=== PATIENT | female | born 1950 | race Caucasian/White ===

== ENCOUNTER 2017-09-13 07:16 | Day surgery (SDC) | payer MEDICARE, OTHER, SELFPAY ==
--- NOTE | 2017-09-07 12:58 | EKG12_ITS ---
Test Reason : PRE-OP Blood Pressure : / mmHG Vent. Rate : 080 BPM Atrial Rate : 080 BPM P-R Int : 144 ms QRS Dur : 078 ms QT Int : 382 ms P-R-T Axes : 073 048 044 degrees QTc Int : 440 ms Normal sinus rhythm Low voltage QRS Borderline ECG Confirmed by FABIAN ARCHER, SOLEDAD ([id number]), business editor SHEELA ERVIN ([id number]) on 09/08/2017 2:29:10 PM Referred By: Marifer Foy Confirmed By:SOLEDAD PERALTA MD
[2017-09-07 13:37] LABS: Hematocrit 33.3 % (37-47); Hemoglobin 11.1 g/dl (12.0-15.0); Mean Corp Hgb Conc 33.3 g/gl (32-36); Mean Corpuscular Hgb 30.3 pg (27.0-32.0); Platelet Count 288 K/mm3 (150-450); RBC Distribution Width CV 12.7 % (11.6-14.6); RBC Distribution Width SD 42.6 fl (35.1-43.9); Red Blood Count 3.66 M/mm3 (4.2-5.4)
[2017-09-07 13:38] LABS: Scan Indicated on CBC? Y/N NO
[2017-09-07 13:51] LABS: Anion Gap 6 (5-15); BUN 14 mg/dL (7-18); BUN/Creat Ratio 14.9 RATIO (10-20); Calcium,Total 8.9 mg/dL (8.5-10.1); Chloride 105 mmol/L (98-107); Creatinine, Serum 0.94 mg/dL (0.55-1.02); EST Glomerular Filtration Rate 63 mL/min (>60); Est Glom Filt Rate - Afr Amer 76 mL/min (>60); Glucose 65 mg/dL (74-106); Sodium Level 139 mmol/L (136-145)
[2017-09-07 13:58] LABS: Hemoglobin A1c 7.6 % (4.2-6.3)
[2017-09-13] VITALS (13 sets, daily range): BP systolic 114–154; BP diastolic 54–74; PULSE 65–77; RESP 10–18; TEMP 36–37.6; O2SAT 94–100; BMI 34.0
--- NOTE | 2017-09-13 | AXNB_PTH ---
PATIENT: ORION SORENSEN LOC: [facility] [place] U#:[id number] AGE/SX: 66/F ROOM: RE09/13/[address]: Dr. Marifer Foy MD : 1950 BED: DIS: 09/14/2017 SPEC #: [id number] RECD: 09/13/17 11:24 STATUS: HERNAN REJuli #: [id number] ANNA: 09/13/17 00:[address]: Marifer Foy DEPT: SURGICAL PATHOLOGY RECD BY: Adrianne Crooks ENTERED: 09/13/17 12:03 SP TYPE: AX NODE BX OTHR DR: Dr. Adonis Alvarado MD Tissues: A - Axillary lymph node, NOS B - Right breast, NOS C - Left breast, NOS Procedures: Frozen Section (charge) Frozen Section Add'l ([facility]) Surgery Specimen Level V Surgery Specimen Level Frozen (no charge) HEADER OPERATION: Mastectomy PRE-OP DIAGNOSIS: Right breast cancer TISSUE SUBMITTED: A ? Right axillary breast tissue ? sent for FS at 1119, B ? Right breast ? suture causey tail of Rouse, C ? Left breast ISCHEMIC TIME: Left ? 42 minutes, Right ? 38 minutes FIXATION TIME: 31.5 hours FROZEN SECTION DIAGNOSIS A. Right axillary sentinel lymph nodes, biopsy: Two out of two lymph nodes negative for carcinoma. AM: 09/13/17 MICROSCOPIC DIAGNOSIS A. Right axillary sentinel lymph nodes, biopsy: Two out of two lymph nodes negative for carcinoma. B. Right breast, mastectomy: Invasive ductal carcinoma. See cancer checklist below. C. Left breast, mastectomy: Fibrocystic change, focal intraductal hyperplasia without atypia and adenosis. No evidence of malignancy. AM: 09/16/17 COMMENT B. INVASIVE BREAST CANCER SUMMARY: Specimen: Total breast Procedure: Mastectomy Specimen integrity: Single intact specimen. Specimen size: 25 x 21 x 6 cm Specimen laterality: Right breast Invasive tumor size: 2.5 x 2 x 2 cm Tumor focality: Single focus of invasive carcinoma Macroscopic and Microscopic extent of tumor: Skin: Free of carcinoma. Nipple: Free of carcinoma. Skeletal muscle: Not present. Histologic type of invasive carcinoma: Invasive ductal carcinoma Histologic Grade ([place] grade): Glandular/tubular differentiation score: 3 Nuclear pleomorphism score: 3 Mitotic count score: 1 Overall grade: Grade 2 (score of 7) Margins: Uninvolved by invasive carcinoma. Distance from closest (posterior) margin ? 2.2 cm Lymph-Vascular invasion: Not identified Dermal lymph-vascular invasion: Not identified Ductal carcinoma in situ (DCIS): Estimated size (extent) of DCIS: 2 x 1 x 1 mm Number of blocks with DCIS: 1 Number of blocks examined: 12 Architectural patterns: Cribriform and solid Nuclear grade: Grade 2/3 Necrosis: Not present Distance from closest (posterior) margin: 2.2 cm Lobular carcinoma in situ (LCIS): Not present Lymph nodes: Number of sentinel lymph nodes examined - 2 Total number of lymph nodes examined (sentinel and nonsentinel) ? 3 Number of lymph nodes positive for carcinoma ? 1 out of 3 lymph nodes is positive for macrometastatic carcinoma measuring 4.2 mm in greatest dimension with focal adjacent extranodal extension measuring 0.4 mm in greatest dimension. Microcalcifications: Present and associated with invasive carcinoma. Treatment effect: No known presurgical therapy. Additional pathologic findings: Biopsy cavity with reactive change and focal fibrocystic change. Ancillary studies: Performed on this tumor [id number]). ER: greater than 95%, strong NM: 0%, Weak Her2 cecil: 0 ([facility]) PATHOLOGIC STAGE: pT2 N1a Mx The above summary is in compliance with [employer] of [place] [employer] (CAP) Cancer Protocols Checklist and [place] Joint Committee on Cancer (AJCC), Staging Manual, 8th Ed. A single lymph node is present in the right mastectomy specimen (specimen ?B?) and contains a single focus of macrometastatic carcinoma measuring 4.2mm in greatest dimension. The sentinel lymph nodes submitted separately (specimen ?A?) are negative for carcinoma. Case has been reviewed in consultation with Dr. Agustin who concurs with the above diagnosis. IDC:[id number] MICROSCOPIC DESCRIPTION Slides are reviewed. GROSS DESCRIPTION A - Received fresh for frozen section consultation labeled with the patient's name is a specimen designated right axillary sentinel lymph nodes. The specimen consists of an irregular fragment of clark-yellow fibrofatty tissue measuring 5 x 3.5 x 1 cm. Dissection reveals two nodules ranging in size from 1.5 to 1 cm in greatest dimension. The nodules are submitted in their entirety for frozen section consultation in two blocks. B - Received in fixative is one container labeled with the patient's name and designated right breast. The specimen consists of a mastectomy measuring 25 x 21 x 6 cm and weighing 1440 gm. The tail of Rouse is marked and inked in orange ink. An ellipse of skin is present measuring 23 x 14.5 cm and contains a centrally located, inverted nipple. Also present in the specimen container are multiple unoriented fragments of skin and attached fibrofatty tissue ranging in size from 5 to 23 cm. The specimen is inked as follows: superior ? blue, inferior ? green and posterior ? black. The specimen is serially sectioned to reveal a firm and white mass measuring 2.5 x 2 x 2 cm and located 2.2 cm from its closest (deep) margin of excision. Care dissection of the tail of Rouse reveals a firm, clark-white nodule measuring 5 mm in greatest dimension. Network Firewall Engineer sections are submitted in 12 cassettes as follows: 1 ? nipple and areola, 2 ? perpendicular superior, inferior and posterior margins, 3 ? perpendicular medial margin, 4 ? perpendicular lateral margin, 5 ? fragments separate from breast and free in container, 6-8 ? tumor, 9 ? nodule from tail of Rouse, 10-12 ? labor relations representative sections of uninvolved breast parenchyma. C - Received in fixative is one container labeled with the patient's name and designated left breast. The specimen consists of a mastectomy measuring 25 x 22 x 6 cm and weighing 1312 gm. An ellipse of skin containing a nipple is present in the anterior surface measuring 24 x 13 cm. No cutaneous lesions are identified. Also present free in the container is a separate fragment of skin with attached soft tissue measuring 19 x 8 x 3 cm. The present is differentially inked as follows: superior ? blue, inferior ? green and posterior ? black. Serial sections reveal yellow-white cut surfaces. No mass lesion is identified. Network Firewall Engineer sections are submitted in 12 cassettes as follows: 1 - nipple and areola, 2 ? perpendicular superior, inferior and posterior margins, 3 ? perpendicular medial margin, 4 ? perpendicular lateral margin, 5-11 ? labor relations representative sections of breast parenchyma, 12 - labor relations representative section of skin and fatty tissue free in container. / AM:ciera 09/14/17 TC:0 CPT: 83815, 34328 x2, 49280, 78564
--- NOTE | 2017-09-13 | IMM_PTH ---
PATIENT: ORION SORENSEN LOC: [facility] [place] U#:[id number] AGE/SX: 66/F ROOM: RE09/13/[address]: Dr. Marifer Foy MD : 1950 BED: DIS: 09/14/2017 SPEC #: [id number] RECD: 09/15/17 13:38 STATUS: HERNAN REQ #: [id number] ANNA: 09/13/17 00:[address]: Marifer Foy DEPT: IMMUNOHISTOCHEMISTRY RECD BY: Adrianne Crooks ENTERED: 09/15/17 13:39 SP TYPE: IMMUNO OTHR DR: Dr. Adonis Alvarado MD Tissues: B - Right breast, NOS Procedures: E-CAD (initial) CALPONIN-1 (add) CK5-6 (add) CK7 (add) CK8 (add) E-CAD (add) ER (add) HER2 NIVIA (add) KI-67 (add) P53 (add) TN (add) Pankeratin (initial) Pankeratin (add) P40 (add) PHYSICIAN & [address] [address] SPECIMEN INFORMATION: Tissue Source: A ? Right axillary sentinel lymph nodes, biopsy, B ? Right breast, mastectomy Clinical Info: Right breast cancer Specimen Number: [id number] A1, A2, B6, B7, B8, B9 CPT code: 64237 x2, 84850 x17, 19281 x3 METHODOLOGY: Deparaffinized sections of prefer/formalin-fixed tissue or PAP/DQ stained slides are incubated with monoclonal/polyclonal antibodies/oligonucleotide probes. Localization is made via biotin free immunoperoxidase method. Appropriate controls are performed and reacted as expected. Results on target cell population are indicated in the following table: RESULTS: ANTIBODY / CLONE RESULT Block A1 AE1-3 (AE1/AE3/PCK26) negative CK7 (OV-TL12/30) negative Block A2 AE1-3 (AE1/AE3/PCK26) negative CK7 (OV-TL12/30) negative Block B6 E-Cad (ECH-6) positive Calponin-1 (HG715P) negative P40 (BC28) negative P53 (DO-7) negative Ki-67 (30-9) positive, rare CK8 (32dvlsE77) positive CK5-6 (D5 & 1684) negative MORPHOMETRIC ANALYSIS ER (clone 6F11) >95%, moderate TN (clone 16/1E2) 0% Her-2Neu (clone CB11) 0 The prognostic test for HER2 is performed on formalin-fixed paraffin embedded tissue. A 3+ (positive) staining pattern is defined as intense, homogeneous, complete, circumferential membranous staining in >10% of contiguous tumor cells. A similar weak (2+) staining pattern is interpreted as equivocal. ROSIE follow-up testing is recommended for all equivocal cases. Positivity/negativity for ER/TN is reported if > or < 1% of the tumor cells are immuno- reactive, respectively. The ASCO/CAP criteria is used for scoring. Reference: Journal of Clinical Oncology, 2013; 31:7537-3290 & 2010; 16:3014-4573. Duration of fixation: 31.5 Hrs; Sample Adequate: Yes. These assays have not been validated on decalcified tissues. Results should be interpreted with caution given the likelihood of false negativity on decalcified specimens. Block B7 E-Cad (ECH-6) positive Calponin-1 (EX525N) negative P40 (BC28) negative Block B8 E-Cad (ECH-6) positive Calponin-1 (HB537S) negative P40 (BC28) negative Block B9 AE1-3 (AE1/AE3/PCK26) positive CK7 (OV-TL12/30) positive These tests were developed and their performance characteristics determined by [facility]. They may not have been cleared or approved by the U.S. Food and Drug Administration. The FDA has determined that such clearance or approval is not necessary. INTERPRETATION: A. Right axillary sentinel lymph nodes, biopsy: Two out of two lymph nodes negative for carcinoma. Positive for estrogen receptors (favorable prognostic indicator). Negative for progesterone receptors (unfavorable prognostic indicator). Negative for overexpression of NEV9xda. B. Right breast, mastectomy: Invasive ductal carcinoma. Focal ductal carcinoma in situ. One out of one lymph node with macrometastatic carcinoma (4.2 mm in greatest dimension). AM:ciera 09/21/17
--- NOTE | 2017-09-13 08:00 | NM_ITS ---
PROCEDURE: NUCLEAR MEDICINE Injection [place] Node - RIGHT breast(s). REASON FOR EXAM: Female, 66 years old. Right breast cancer. TECHNIQUE: [place] node localization using radionuclide methods of the RIGHT breast(s) was performed following subcutaneous administration of 1.2 mCi of of sulfur colloid Tc-99m. FINDINGS: 1.2 mCi of technetium labeled sulfur colloid was injected in 4 equal aliquots in the right upper quadrant of the right breast for sentinel node imaging.. NM/Lymph Node Injection Only IMPRESSION: Subcutaneous injection of 1.2 mCi of technetium labeled sulfur colloid for sentinel node imaging. Electronically Signed: Jayesh Shields MD at 9:27 EST Tel [phone], Service support ,
[2017-09-13 08:20] LABS: Bedside Glucose 165 mg/dL (70-110)
--- NOTE | 2017-09-13 09:35 | OP.PN_ITS ---
Immediate Post-Op Note Date of Procedure: 09/13/17 Primary Surgeon/Physician: Marifer Foy thermal cutting tracer machine operator: Nishant Stewart performing left mastectomy thermal cutting tracer machine operator: Tomasa Mathias Pre-Operative Diagnosis: right breast cancer Post-Operative Diagnosis: same Surgery/Procedure Performed:: right breast mastectomy, right axillary sentinel lymph node biopsy, left prohylactic breast mastectomy by Dr. Stewart Description of Surgical Findings:: right breast tissue, two lymph nodes negative for metastatic disease, tumor site count 168, axillary fatty tissue count 29, control count 1 Estimated Blood Loss: 100 ml Specimen's removed: right breast, right axillary sentinel lymph node Type of Anesthesia:: General ASA Class: ASA2 Mod Systematic Disease - Admit VTE Documentation VTE Present on Admission: Yes VTE Mechan Device Prophylaxis: SCD's
[2017-09-13] MEDS: Cefazolin 2 GM in 0.9% Normal Saline 100 ML IV (09:51)
[2017-09-13] MEDS: Methylene Blue 1% 100 MG/10 ML VIAL (09:51)
[2017-09-13] MEDS: Bupiv/Epi 0.5% Mpf 30 ML Vial (10:13)
--- NOTE | 2017-09-13 11:50 | PCM.OPRPT ---
Report of Operation Date of Procedure: 09/13/17 Pre-Operative Diagnosis: right breast cancer Post-Operative Diagnosis: same Surgery/Procedure Performed:: right breast mastectomy, right axillary sentinel lymph node biopsy, left prohylactic breast mastectomy by Dr. Stewart Description of Surgical Findings:: right breast tissue, two lymph nodes negative for metastatic disease iron erector: Tomasa Mathias Type of Anesthesia:: General Anesthesiologist: Tereza Quevedo Specimen's removed: right breast, right axillary sentinel lymph milton tissue Drains: 2 15 Fr round drains in right axilla Estimated Blood Loss (mL): 100 ml Fluids Replaced: 1500 cc RL Description of Procedure: After informed consent was given the patient was brought to he OR and placed in the supine position on the operating room table. Appropriate time out protocol was followed. This case was done simultaneously with Dr. Stewart doing a prophylactic left simple mastectomy. She was then placed under general anesthesia. 4 cc of diluted 50:50 methylene blue dye was then injected into the periareolar area and around the biopsy cavity with a 25 g needle after the skin was cleansed with alcohol. Gentle massage was then done for a few minutes. The patient's upper chest and neck area was then prepped with a sterile surgical skin preparation and appropriate sterile surgical drapes were placed. Using a skin marker, an elliptical outline was made on both breasts for symmetry, it was made to incorporate the nipple and periareolar skin. The skin incision was then made with a 10 blade scalpel and carried through to the subcutaneous tissues using electrocautery. Any hemorrhage was controlled with electrocautery. The medial and superior skin flap was created by the subcutaneous fat from the breast tissue using electrocautery. Any bleeding vessels were controlled with electrocautery. Larger vessels were ligated with vicryl suture. Dissection then continued to the level of the right lateral sternal border. The superior level of dissection was carried down to the clavipectoral fascia. The inferior skin flap was developed in the same fashion and the breast tissue was to its inferior border from the subcutaneous fat. The entire breast tissue and the pectoralis fascia were then from the pectoralis muscles starting medially and continuing laterally. The dissection included the pectoralis fascia and interpectoral milton tissue. Once dissection was achieved to the lateral extent of the breast, then the inferior portion of the lateral tissue was transected leaving the breast tissue connected only by the superior lateral tissue (tail of Rouse) of the breast. Blunt dissection was then conducted into the axillary fossa to palpate out any axillary lymph nodes. Blue lymphatic channels were also followed to its lymphatic drainage area. The Neoprobe was brought into the surgical field. 10 second tumor count was 168. 10 second count for control at a remote site was 1. Fatty lymph milton tissue was noted that was bluish in coloration. This tissue was from the surrounding tissue by blunt and sharp dissection. Vessels were ligated with ligaclips. The tissue was brought out - Neoprobe 10 second count was 29. This tissue was forwarded to pathology. Two lymph were identified and were negative for metastatic disease. Hemostasis of the area of dissection was then achieved with electrocoagulation. The mastectomy bed was vigorously irrigated with sterile water and all irrigation solution was removed. Lexx was applied. A 15 Fr round drain was placed in the axilla and another was placed along the mastectomy bed and these drains were brought out through separate skin incisions and sutured to the skin using nylon suture. The superior and inferior skin flaps were then approximated together using interrupted vicryl suture along the dermis of the skin edges. The skin incision was then reapproximated with 4-0 monocryl in a running subcuticular fashion. Cavilon and steristrips were then placed to reinforce the skin closure and proper sterile dressings were applied. Patient tolerated procedure well and was brought to the Recovery Room in stable condition. - Complications none noted - Admit VTE Documentation VTE Present on Admission: Yes VTE Mechan Device Prophylaxis: SCD's
[2017-09-13 13:16] LABS: Bedside Glucose 149 mg/dL (70-110)
[2017-09-13] MEDS: 0.9% NaCl Peripheral Flush Adult/Peds IV (14:30)
[2017-09-13] MEDS: Lactated Ringers 1,000 ML 75 ML IV (16:35)
[2017-09-13] MEDS: Cefazolin 1 GM/50 ML BAG IV ×2 (16:42→21:31)
[2017-09-13 17:01] LABS: Bedside Glucose 160 mg/dL (70-110)
[2017-09-13] MEDS: HYDROcodone Bitartrate/Apap 5/325 Tablet PO (19:24)
--- NOTE | 2017-09-13 19:38 | PCM.OPRPT ---
Report of Operation Date of Procedure: 09/13/17 Pre-Operative Diagnosis: right breast cancer Post-Operative Diagnosis: same Surgery/Procedure Performed:: right breast mastectomy, right axillary sentinel lymph node biopsy, left prophylactic breast mastectomy by Dr. Stewart personal injury attorney: Nishant Stewart - performing left mastectomy personal injury attorney: Tomasa Mathias Type of Anesthesia:: General Anesthesiologist: Tereza Quevedo Specimen's removed: right breast, right axillary sentinel lymph node Drains: 2 15 Fr round drains in right axilla Estimated Blood Loss (mL): 100 ml Fluids Replaced: 1500 cc RL Description of Procedure: The patients bilateral breast, right axilla right arm and neck were then prepped and draped in the usual fashion. Timeout was performed verifying patient, site, position by Dr. Foy. The planned margin of excision for the mastectomy flaps were marked on the skin and incisions were made starting in the axillary region on the left side and matching markings were performed by Dr. Foy for the left side. I was able to join the case mid procedure is Dr. Foy was progressing with her right modified radical mastectomy. Attention was then turned to the left mastectomy. Superior and inferior flaps were completed and raised. The breast tissue was taken down to the pectoralis fascia. The inferior portion of breast was then removed from the intercostal musculature and dissection carried superior laterally dividing the superficial tissues leading up to the axilla fatty tissue. Axillary dissection be performed. The specimen was sent whole to pathology. there was excess skin at the inferior margin, so this was excised. A single Apolinar-Molina drains were placed in the medial along the skin flap and secured with 3-0 nylon suture. Skin flaps were approximated interrupted 3-0 Vicryls. Skin was closed with 4-0 subcuticular suture and Steri-Strips. Drain dressings and incisional dressings were placed. All sponge and instrument counts were correct.
--- NOTE | 2017-09-13 19:43 | OP.PCM_ITS ---
Report of Operation Date of Procedure: 09/13/17 Pre-Operative Diagnosis: right breast cancer Post-Operative Diagnosis: same Surgery/Procedure Performed:: right breast mastectomy, right axillary sentinel lymph node biopsy, left prophylactic breast mastectomy by Dr. Stewart chemical etching processor: Nishant Stewart - performing left mastectomy chemical etching processor: Tomasa Mathias Type of Anesthesia:: General Anesthesiologist: Tereza Quevedo Specimen's removed: right breast, right axillary sentinel lymph node Drains: 2 15 Fr round drains in right axilla Estimated Blood Loss (mL): 100 ml Fluids Replaced: 1500 cc RL Description of Procedure: The patient?s bilateral breast, right axilla right arm and neck were then prepped and draped in the usual fashion. Timeout was performed verifying patient, site, position by Dr. Foy. The planned margin of excision for the mastectomy flaps were marked on the skin and incisions were made starting in the axillary region on the left side and matching markings were performed by Dr. Foy for the left side. I was able to join the case mid procedure is Dr. Foy was progressing with her right modified radical mastectomy. Attention was then turned to the left mastectomy. Superior and inferior flaps were completed and raised. The breast tissue was taken down to the pectoralis fascia. The inferior portion of breast was then removed from the intercostal musculature and dissection carried superior laterally dividing the superficial tissues leading up to the axilla fatty tissue. Axillary dissection be performed. The specimen was sent whole to pathology. there was excess skin at the inferior margin, so this was excised. A single Apolinar-Molina drains were placed in the medial along the skin flap and secured with 3-0 nylon suture. Skin flaps were approximated interrupted 3-0 Vicryls. Skin was closed with 4-0 subcuticular suture and Steri-Strips. Drain dressings and incisional dressings were placed. All sponge and instrument counts were correct.
[2017-09-13 21:51] LABS: Bedside Glucose 123 mg/dL (70-110)
[2017-09-14 01:58] VITALS: BP 158/46; PULSE 71; RESP 18; TEMP 37.2; O2SAT 99
[2017-09-14] MEDS: Lactated Ringers 1,000 ML 75 ML IV (06:20)
[2017-09-14] MEDS: Cefazolin 1 GM/50 ML BAG IV (06:20)
--- NOTE | 2017-09-14 07:02 | PCM.PN.SRG ---
Subjective: patient feeling well, has minimal pain - Physical Exam General: Alert, Oriented x3 Oral: Moist Mucosa Neck: Supple Lungs: Normal air movement Cardiovascular: Regular rate Abdomen: Soft Skin: - - dressing intact, SAMMY outputs are serosanguinous Vital Signs Temp Pulse Resp BP Pulse Ox 98.9 F 71 18 158/46 H 99 09/14/17 01:58 09/14/17 01:58 09/14/17 01:58 09/14/17 01:58 09/14/17 01:58 Oxygen Flow Rate 2 Oxygen Delivery Method Room Air Weight: 84.5 kg Body Mass Index (BMI) 34.0 Finger Stick Blood Glucose 149 Intake and Output for Last 24 Hours 09/12/17 09/13/17 09/14/17 23:59 23:59 23:59 Intake Total 2266 / 2266 1334 / 1334 Output Total 675 / 675 Balance 2266 / 2266 659 / 659 POC Glucose 09/13/17 09/13/17 09/13/17 21:29 16:46 13:11 POC Glucose 123 H 160 H 149 H 09/13/17 07:48 POC Glucose 165 H Assessment/Plan POD#1 s/p bilateral mastectomies Plan: discharge to home, follow up with me later this week
--- NOTE | 2017-09-14 07:05 | PCM.DC.BS ---
Discharge Diet: No Restrictions - drink plenty of fluids Discharge Activity: Return to Normal Activity, May not drive while taking narcotic pain medications. Lifting Restrictions: no lifting greater than 10 pounds until further notice Call your doctor if your incision/area has: Continuous Slow Oozing, Foul Smelling Discharge Call your doctor if you observe: Fever of 101 or Higher Additional Dressing/Incision Instructions:: Leave all dressings in place. Empty and reconstitute SAMMY bulbs twice a day. Sponge bathe only Allergies/Adverse Reactions: Allergies celecoxib [From Celebrex] Allergy (Verified 09/06/17 12:57) Hives ramipril Allergy (Verified 09/06/17 13:27) Hives rofecoxib [From Vioxx] Allergy (Verified 09/06/17 12:57) Hives letrozole [From Femara] Adverse Reaction (Verified 09/06/17 12:57) Pain in joints Medications to take at Discharge Alendronate Sodium [Fosamax] 70 mg PO QWEEK 09/06/17 Aspirin [Aspir-Low] 81 mg PO DAILY 09/06/17 Calcium Carbonate/Vitamin D3 [Caltrate 600 Plus D3 Tablet] 1 each PO BID 09/06/17 Hydrocodone Bitart/Apap 5-325 [Montreal 5MG-325MG] 1 tablet PO Q6H PRN PRN 09/06/17 Insulin Aspart [Novolog Flexpen (BKC)] 15 units SC TIDCM 09/06/17 Insulin Glargine [Lantus (BKC)] 30 units SC QHS 09/06/17 Naproxen Sodium [Aleve] 220 mg PO Q8H PRN PRN 09/06/17 Omeprazole 40 mg PO DAILY 09/06/17 Simvastatin [Zocor] 10 mg PO QHS 09/06/17 Solifenacin Succinate [Vesicare] 10 mg PO DAILY 09/06/17 Tizanidine HCl [Zanaflex] 2 mg PO Q8H PRN 09/06/17 Valsartan [Diovan] 40 mg PO DAILY 09/06/17 Cephalexin [Keflex] 500 mg PO Q12 #20 cap 09/14/17 Hydrocodone/Acetaminophen [Montreal 5-325 Tablet] 1 ea PO Q6H PRN PRN 4 Days #15 tab 09/14/17 The following prescriptions were given: Hydrocodone/Acetaminophen [Montreal 5-325 Tablet] 1 ea PO Q6H PRN PRN 4 Days #15 tab PRN Reason: Mod-Severe Pain (-05/11) Cephalexin [Keflex] 500 mg PO Q12 #20 cap Please Follow Up With: Marifer Foy MD - call When: to be seen on or Wednesday, please call for date and time, thank you
[2017-09-14 07:25] VITALS: BP 161/60; PULSE 74; RESP 18; TEMP 37.4; O2SAT 95
[2017-09-14 07:46] LABS: Bedside Glucose 114 mg/dL (70-110)
[2017-09-14] MEDS: VALSARTAN 40 MG TABLET PO (08:54)
[2017-09-14] MEDS: Pantoprazole Sodium 40 MG Tablet PO (08:54)
[2017-09-14 09:20] VITALS: BP 161/60; PULSE 74; RESP 18; TEMP 37.4; O2SAT 95
== END 2017-09-14 09:20 | disposition home or self-care (01) ==
LOC: SDC 07:17 → AC 07:17 → MS2 08:07
PROVIDERS: Family Provider Family Medicine; PCP Family Medicine; Visit Provider Surgery
PROC: (CPT 19307; principal; 2017-09-13 09:45)
DX: C50.411 Malignant neoplasm of upper-outer quadrant of right female breast (principal); C77.3 Secondary and unspecified malignant neoplasm of axilla and upper limb lymph nodes; Z17.0 Estrogen receptor positive status [ER+]; N60.12 Diffuse cystic mastopathy of left breast; N60.92 Unspecified benign mammary dysplasia of left breast; I10 Essential (primary) hypertension; K21.9 Gastro-esophageal reflux disease without esophagitis; E11.9 Type 2 diabetes mellitus without complications; Z79.4 Long term (current) use of insulin; E66.01 Morbid (severe) obesity due to excess calories; Z68.35 Body mass index [BMI] 35.0-35.9, adult; E78.5 Hyperlipidemia, unspecified; Z87.891 Personal history of nicotine dependence; Z79.82 Long term (current) use of aspirin; Z79.899 Other long term (current) drug therapy; Z86.018 Personal history of other benign neoplasm; Z80.3 Family history of malignant neoplasm of breast
CPT/HCPCS: 19307; 36415; 38792; 80048; 82962; 83036; 85027; 88305; 88307; 88309; 88331; 88332; 88341; 88342; 94762; A9541; J7120; A4216; J2405; J3490

== ENCOUNTER 2020-11-06 10:36 | Outpatient (RCR) | payer MEDICARE, OTHER, SELFPAY ==
[2017-09-13 14:27] VITALS: BMI 34.0
== END 2021-01-07 23:59 ==
LOC: IMMUN 10:36
PROVIDERS: PCP Family Medicine; Visit Provider Family Medicine
DX: Z23 Encounter for immunization (principal)
CPT/HCPCS: 0001A; 0002A; 91300

== ENCOUNTER 2024-10-30 16:48 | Inpatient (IN) | payer MEDICARE, OTHER, SELFPAY ==
[2024-10-30 16:49] VITALS: BP 151/103; PULSE 84; RESP 15; TEMP 35.7; O2SAT 97; BMI 35.9
--- NOTE | 2024-10-30 17:08 | CT_ITS ---
PROCEDURE: ABDOMEN/PELVIS W IV CONT ONLY 10/30/2024 REASON FOR EXAM: ABDOMINAL PAIN, RECTAL BLEEDING TECHNIQUE: Abdomen and pelvis CT with intravenous contrast. Coronal and Sagittal reconstruction series were provided. PATIENT PREPARATION: Per protocol ORAL CONTRAST TYPE: None. CONTRAST: Isovue 370 VOLUME: 100mL gauge IV One or more dose reduction techniques were used (e.g., Automated exposure control, adjustment of the mA and/or kV according to patient size, use of iterative reconstruction technique. RADIATION DOSE SUMMARY: CTDlvol: 27 mGy DLP: 988 mGycm COMPARISON: None FINDINGS: Lung bases: Unremarkable Liver: Normal size. No mass. Gallbladder: Unremarkable Spleen: Small punctate calcification. Pancreas: Normal size without evidence of mass surrounding inflammation or ductal dilation. Adrenals: Thickening of the bilateral adrenal glands likely related to hyperplasia. Kidneys: Tiny parenchymal low attenuating lesion of the right kidney, too small to characterize. No evidence of nephrolithiasis or hydronephrosis. Bladder: Unremarkable Reproductive Organs: Normal uterine size and contour. Ovaries are unremarkable. Bowel: Evaluation of the bowel loops are limited due to lack of oral contrast. The stomach is grossly unremarkable. No inflammatory changes of the small bowel. Surgical sutures along the distal rectum consistent with prior resection. Mild stool burden within the large bowel. No inflammatory changes. There is a small umbilical hernia containing a focal loop of transverse colon, no distention, wall thickening or adjacent stranding to suggest obstruction. Appendix: Unremarkable Lymph nodes: Unremarkable. Vasculature: Mild diffuse atherosclerotic calcifications are noted. Peritoneum / Retroperitoneum: No free air or free fluid is demonstrated. Bones: Degenerative changes of the lumbar spine CT/Abdomen/Pelvis W IV Cont ONLY IMPRESSION: Mild stool burden within the large bowel. No inflammatory changes of the bowel loops. Umbilical hernia containing a focal loop of transverse colon, no inflammatory c hanges to suggest strangulation. Reading Location: [facility]
--- NOTE | 2024-10-30 17:09 | ED.VIS.GI ---
HPI HPI - GI History of Present Illness Chief Complaint: GI Bleed Detail of Chief Complaint: Rectal bleeding Informant: patient and family Narrative Narrative: Patient presents to the emergency department complaint of rectal bleeding for about a month off-and-on. She has history of hemorrhoids. Patient also started with some abdominal pain yesterday in the left lower abdomen. She does have history of prior diverticulitis. She has history of prior colon cancer with partial bowel resection. Patient denies fevers or chills or sweats. She denies vomiting. She is not anticoagulated [facility] Home Medications ?Medication ?Instructions ?Recorded ?Last Taken ?Type alendronate 70 mg tablet (Fosamax) 70 mg PO QWEEK 09/06/17 Unknown History aspirin 81 mg tablet,delayed 81 mg PO DAILY HEART 09/06/17 Unknown History release (Aspir-Low) calcium 600 mg (as 1 ea PO BID SUPPLEMENT 09/06/17 Unknown History carbonate)-vitamin D3 20 mcg (800 unit) tablet (Caltrate with Vitamin D3) hydrocodone-acetaminophen 5-325mg 1 tab PO Q6H PRN PRN Pain 09/06/17 Unknown History 5mg-325mg insulin aspart U-100 100 unit/mL 15 units subcut TIDCM DIABETES 09/06/17 Unknown History (3 mL) subcutaneous pen (Novolog FlexPen U-100 Insulin aspart) insulin glargine 100 unit/mL (3 30 units subcut QHS DIABETES 09/06/17 Unknown History mL) subcutaneous pen (Lantus Solostar U-100 Insulin) naproxen sodium 220 mg tablet 220 mg PO Q8H PRN PRN Pain 09/06/17 Unknown History (Aleve) omeprazole 40 mg capsule,delayed 40 mg PO DAILY REFLUX 09/06/17 09/13/17 06:00 History release simvastatin 10 mg tablet (Zocor) 10 mg PO QHS CHOLESTEROL 09/06/17 Unknown History solifenacin 10 mg tablet (Vesicare) 10 mg PO DAILY BLADDER 09/06/17 Unknown History tizanidine 2 mg tablet 2 mg PO Q8H PRN Pain 09/06/17 Unknown History valsartan 40 mg tablet (Diovan) 40 mg PO DAILY BP 09/06/17 09/13/17 06:00 History cephalexin 500 mg capsule 500 mg PO Q12 #20 caps 09/14/17 Unknown Rx hydrocodone-acetaminophen 5-325mg 1 ea PO Q6H PRN PRN Mod-Severe 09/14/17 Unknown Rx 5mg-325mg Pain (4-10/10) 4 days #15 tabs Allergy/AdvReac Type Severity Reaction Status Date / Time celecoxib (From Celebrex) Allergy Hives Verified 10/30/24 16:49 ramipril Allergy Hives Verified 10/30/24 16:49 rofecoxib (From Vioxx) Allergy Hives Verified 10/30/24 16:49 letrozole (From Femara) AdvReac Pain in Verified 10/30/24 16:49 joints Social History Smoking Status: Former smoker ROS ROS ED Review of Systems ROS Unobtainable: other Constitutional Constitutional ED: Reports lethargy; Denies chills, fever(s), sweats or weight loss Eyes Eyes: Denies blurry vision, change in vision or diplopia ENT ENT ED: Denies rhinorrhea or sore throat Cardiovascular Cardiovascular: Denies chest pain, orthopnea or racing heartbeat Respiratory/Chest Respiratory/Chest: Denies cough, dyspnea, dyspnea on exertion, orthopnea or sputum Gastrointestinal Gastrointestinal: Reports abdominal pain and other Details: Rectal bleeding ; Denies diarrhea, nausea or vomiting Genitourinary Genitourinary ED: Denies dysuria, hematuria or urinary frequency Musculoskeletal Musculoskeletal: Denies arthralgias, back pain, myalgias or neck pain Integumentary Denies abscess, Abrasions or rash Neurologic Neurologic: Denies headache(s) or weakness Psychiatric Psychiatric: Denies anxiety, depression or suicidal thoughts Endocrine Endocrinology: Denies polydipsia, polyphagia or polyuria Hematologic/Lymphatic Hematologic/Lymphatic: Denies easy bleeding, easy bruising or lymphadenopathy Allergic/Immunologic Allergic/Immunologic ED: Denies mouth swelling, tongue swelling or urticaria EXAM Physical Exam Const Vital Signs: 10/30/24 16:49 10/30/24 17:49 10/30/24 20:00 Temperature 96.3 F L Temperature Source Temporal Pulse Rate 84 Pulse Rate [Lying] 72 Pulse Rate [Sitting (for 1 minute prior to obtaining)] 73 Pulse Rate [Standing (for 1 minute prior to obtaining)] 74 Respiratory Rate 15 Blood Pressure 151/103 H 140/70 H Blood Pressure [Lying] 175/74 H Blood Pressure [Sitting (for 1 minute prior to obtaining)] 169/71 H Blood Pressure [Standing (for 1 minute prior to obtaining)] 150/76 H Blood Pressure Mean 119 93 Blood Pressure Mean [Lying] 107 Blood Pressure Mean [Sitting (for 1 minute prior to obtaining)] 103 Blood Pressure Mean [Standing (for 1 minute prior to obtaining)] 100 Pulse Ox 97 Oxygen Delivery Method Room Air Positive well nourished and well developed General Appearance ED: well developed and NAD HEENT Reports TM's clear and moist mucous membranes normocephalic and atraumatic; Negative for trauma or tenderness Tympanic Membrane ED: Yes TM's clear Eyes PERRL and EOMs intact bilaterally General Eye ED: Negative for pale conjunctiva or scleral icterus Neck no lymphadenopathy, supple and no JVD General: Negative for tenderness Chest Wall inspection of chest normal and palpation of chest normal Chest: Negative for tenderness Resp normal respiratory effort and clear to auscultation bilaterally Effort and Inspection: Negative for respiratory distress or pain with movement Auscultation: Negative for rhonchi, wheezes or diminished lung sounds Cardio regular rate, regular rhythm, S1 normal heart sound, S2 normal heart sound and no murmurs Peripheral Pulses: pulses 2+ throughout GI normal to inspection, nondistended, normoactive bowel sounds, soft to palpation, non-tender, non-distended and no masses GI Narrative: Rectal exam performed. No obvious hemorrhoids noted. No source of bleeding noted. There is no fissures. On digital rectal exam there was brown stool. No impaction noted Back/Spine no CVA tenderness and no thoracic nor lumbar tenderness Extremity normal to inspection General Extremety ED: Negative for edema General Extremity: Negative for edema Neuro oriented x3, CN's II-XII intact bilaterally, no sensory deficits noted and gait normal Sensorium / Orientation: awake, alert, oriented to person, oriented to place and oriented to time Motor Exam: strength 5/5 throughout and strength abnormal Psych mental status grossly normal Skin no rashes or lesions noted and no wounds MDM MDM MDM Narrative Medical decision making narrative: Patient presents to the emergency department with rectal bleeding for over a week. She had some left lower quadrant abdominal pain yesterday. History of diverticulitis. Patient clinically looks well. IV line established. CBC with differential obtained showed white count 5.9 with hemoglobin 9.7 and platelet count of 276. BUN 15 and creatinine 0.93. Urinalysis normal. CT scan of the abdomen pelvis with IV contrast essentially unremarkable. I did orthostatic vital signs and patient's systolic blood pressure did drop by 25 points. Heart rate really did not increase. Patient's daughter was able to pull up her lab report from when she had her last visit to [facility] on the and at that time her hemoglobin was 11.5. Patient is dropped 2 g of hemoglobin essentially in last 5 days. Will discuss case with hospitalist to evaluate for admission. Will discuss with GI as well. Lab Data Attestation: I reviewed the patient's lab results. Labs: Laboratory Results - last 24 hr 10/30/24 10/30/24 17:18 18:17 WBC 5.9 RBC 3.27 L Hgb 9.7 L Hct 28.6 L MCV 87.5 MCH 29.7 MCHC 33.9 RDW Std Deviation 48.5 H RDW Coeff of Miriam 15.3 H Plt Count 276 MPV 8.1 Immature Gran % (Auto) 0.500 Neut % (Auto) 52.6 Lymph % (Auto) 35.5 White % (Auto) 8.3 Eos % (Auto) 2.2 Baso % (Auto) 0.9 Absolute Neuts (auto) 3.1 Absolute Lymphs (auto) 2.09 Nucleated RBC % 0 Sodium 135 Potassium 4.0 Chloride 99 Carbon Dioxide 21.5 Anion Gap 14 BUN 15 Creatinine 0.93 Estim Creat Clear Calc 52.11 Est GFR (MDRD) Non-Af 64 BUN/Creatinine Ratio 15.7 Glucose 193 H Lactic Acid 1.5 Calcium 9.3 Urine Color Straw Urine Clarity Clear Urine pH 6.5 Ur Specific [place] 1.010 Urine Protein 30 H Urine Glucose (UA) Normal Urine Ketones Negative Urine Occult Blood 25 H Urine Nitrite Negative Urine Bilirubin Negative Urine Urobilinogen Normal Ur Leukocyte Esterase 25 H Urine RBC 0-5 SEEN Urine WBC 0-5 SEEN Ur Squamous Epith Cells 0-5 SEEN Urine Bacteria 0 SEEN Urine Mucus 0 SEEN Radiography Diagnostic Testing: Clinical Impression(s) from Imaging Studies Abdomen/Pelvis CT 10/30/24 17:08 IMPRESSION: Mild stool burden within the large bowel. No inflammatory changes of the bowel loops. Umbilical hernia containing a focal loop of transverse colon, no inflammatory changes to suggest strangulation. Reading Location: [facility] Discharge Plan Triage Chief Complaint: GI Bleed ED Provider: Bruce Mcclain Dx/Rx/DC Orders Clinical Impression: Acute lower GI bleeding, Anemia, Weakness Prescriptions: No Action alendronate [Fosamax] 70 MG tablet 70 mg PO QWEEK simvastatin [Zocor] 10 MG tablet 10 mg PO QHS omeprazole 40 MG capsule,delayed release(DR/EC) 40 mg PO DAILY aspirin [Aspir-Low] 81 MG tablet,delayed release (DR/EC) 81 mg PO DAILY Patient Comments: WAS TOLD TO STOP 3 DAYS BEFORE valsartan [Diovan] 40 MG tablet 40 mg PO DAILY insulin aspart U-100 [Novolog FlexPen U-100 Insulin] 100 UNITS/ML insulin pen 15 units subcut TIDCM solifenacin [Vesicare] 10 MG tablet 10 mg PO DAILY insulin glargine [Lantus Solostar U-100 Insulin] 100 UNITS/ML insulin pen 30 units subcut QHS calcium carbonate-vitamin D3 [Caltrate with Vitamin D3] 1 EACH tablet 1 ea PO BID tizanidine 2 MG tablet 2 mg PO Q8H PRN (Reason: Pain) hydrocodone-acetaminophen 1 TABLET tablet 1 tab PO Q6H PRN PRN (Reason: Pain) naproxen sodium [Aleve] 220 MG tablet 220 mg PO Q8H PRN PRN (Reason: Pain) Patient Comments: WAS TOLD TO ASK ABOUT STOPPING cephalexin 500 MG capsule 500 mg PO Q12 Qty: 20 0RF hydrocodone-acetaminophen 1 EACH tablet 1 ea PO Q6H PRN PRN (Reason: Mod-Severe Pain (4-1010)) 4 Days Qty: 15 0RF Primary Care Provider: Terrie Blanton Referrals: Adonis Alvarado MD [Non-Staff] - Print Language: Greek Disposition Disposition: Acute Care Hospital [facility]
[2024-10-30] MEDS: 0.9% Normal Saline (1000mL) 1,000 ML 125 ML IV (17:25)
[2024-10-30 17:40] LABS: Absolute Lymphocyte Count 2.09 X10^3/uL (0.83-4.51); Absolute Neutrophil Count 3.1 X10^3/uL (2.0-7.7); Basophil# 0.05 X10^3/uL; Basophil% 0.9 % (0-1); Eosinophil# 0.13 X10^3/uL; Eosinophils% 2.2 % (0-5); Hematocrit 28.6 % (37-47); Hemoglobin 9.7 g/dL (12.0-15.0); Lymphocyte # 2.09 X10^3/ul (0.83-4.51); Lymphocyte % 35.5 % (19-41); Mean Corp Hgb Conc 33.9 g/dL (32-36); Mean Corpuscular Hgb 29.7 pg (27.0-32.0); Mean Corpuscular Volume 87.5 fL (81-99); Mean Platelet Vol. 8.1 fl (6.2-12.0); Monocyte# 0.49 X10^3/uL; Monocyte% 8.3 % (0-10); NRBC Flagged by Analyzer 0 % (0-5); Neutrophil # 3.09 X10^3/uL (2.7-7.7); Neutrophil % 52.6 % (47-70); Platelet Count 276 K/mm3 (150-450); RBC Distribution Width CV 15.3 % (11.6-14.6); RBC Distribution Width SD 48.5 fl (35.1-43.9); Red Blood Count 3.27 M/mm3 (4.2-5.4); White Blood Count 5.9 K/mm3 (4.4-11.0)
[2024-10-30 17:49] VITALS: BP 150/76; BP 169/71; BP 175/74; PULSE 72; PULSE 73; PULSE 74
[2024-10-30 18:06] LABS: Lactic Acid 1.5 mmol/L (0.0-2.0)
[2024-10-30 18:09] LABS: Anion Gap 14 (5-15); BUN 15 mg/dL (4-19); BUN/Creat Ratio 15.7 RATIO (10-20); Calcium,Total 9.3 mg/dL (7.6-11.0); Carbon Dioxide 21.5 mmol/L (21.0-32.0); Chloride 99 mmol/L (98-108); Creatinine, Serum 0.93 mg/dL (0.70-1.20); EST Glomerular Filtration Rate 64 (>60); Estimated Creatinine Clearance 52.11 ml/min (50-250); Glucose 193 mg/dL (70-99); Sodium Level 135 mmol/L (133-145)
[2024-10-30 18:22] LABS: Bacteria 0 SEEN /hpf (None Seen); Mucous, Urine 0 SEEN /hpf (<or=2+)
[2024-10-30 18:23] LABS: Color, Urine Straw (Yellow); Glucose, Dipstick Normal (Normal); Ketone-Dipstick Negative (Negative); Leukocyte Esterase-Dipstick 25 /ul (Negative); Nitrite-Dipstick Negative (Negative); Occult Blood-Urine 25 /ul (Negative); Protein-Dipstick 30 mg/dl (Negative); Urine Bilirubin Dipstick Negative (Negative); Urine Clarity Clear (Clear); Urine Urobilinogen Normal (Normal); Urine pH 6.5 (5.0 - 8.0)
[2024-10-30 18:37] LABS: Red Blood Cells-Urine 0-5 SEEN /hpf (0-5); Squamous Epithelial Cells - UA 0-5 SEEN /hpf (5-10); White Blood Cells 0-5 SEEN /hpf (0-5)
[2024-10-30 20:00] VITALS: BP 140/70
--- NOTE | 2024-10-30 20:39 | PCM.HP.STD ---
HPI - General General Date of Admission: 10/30/24 Date of Service: 10/30/24 Chief Complaint: Gastrointestinal bleeding HPI Narrative ORION SORENSEN, is a 73 F who presents to the emergency room with chief complaint of gastrointestinal bleeding. Onset of symptoms began approximately 1 month ago on and off and became worse this past week. She states she was filling the toilet bowl with red blood with every bowel movement over the past week. She has a history of neck surgery done in July and is still wearing a neck brace at this time. Approximately a week ago she took heavy dose of THC and ended up in the emergency room at another facility at which time her hemoglobin was in the 11.5 range and is currently at 9.7. Patient denies any chest pain, shortness of breath, fevers or chills however she does have a decreased appetite and tenderness over her left lower quadrant of the abdomen. Patient will be admitted and managed for GI bleed. [facility] Home Medications ?Medication ?Instructions ?Recorded ?Last Taken ?Type alendronate 70 mg tablet (Fosamax) 70 mg PO QWEEK 09/06/17 Unknown History aspirin 81 mg tablet,delayed 81 mg PO DAILY HEART 09/06/17 Unknown History release (Aspir-Low) calcium 600 mg (as 1 ea PO BID SUPPLEMENT 09/06/17 Unknown History carbonate)-vitamin D3 20 mcg (800 unit) tablet (Caltrate with Vitamin D3) hydrocodone-acetaminophen 5-325mg 1 tab PO Q6H PRN PRN Pain 09/06/17 Unknown History 5mg-325mg insulin aspart U-100 100 unit/mL 15 units subcut TIDCM DIABETES 09/06/17 Unknown History (3 mL) subcutaneous pen (Novolog FlexPen U-100 Insulin aspart) insulin glargine 100 unit/mL (3 30 units subcut QHS DIABETES 09/06/17 Unknown History mL) subcutaneous pen (Lantus Solostar U-100 Insulin) naproxen sodium 220 mg tablet 220 mg PO Q8H PRN PRN Pain 09/06/17 Unknown History (Aleve) omeprazole 40 mg capsule,delayed 40 mg PO DAILY REFLUX 09/06/17 09/13/17 06:00 History release simvastatin 10 mg tablet (Zocor) 10 mg PO QHS CHOLESTEROL 09/06/17 Unknown History solifenacin 10 mg tablet (Vesicare) 10 mg PO DAILY BLADDER 09/06/17 Unknown History tizanidine 2 mg tablet 2 mg PO Q8H PRN Pain 09/06/17 Unknown History valsartan 40 mg tablet (Diovan) 40 mg PO DAILY BP 09/06/17 09/13/17 06:00 History cephalexin 500 mg capsule 500 mg PO Q12 #20 caps 09/14/17 Unknown Rx hydrocodone-acetaminophen 5-325mg 1 ea PO Q6H PRN PRN Mod-Severe 09/14/17 Unknown Rx 5mg-325mg Pain (4-10/10) 4 days #15 tabs Allergy/AdvReac Type Severity Reaction Status Date / Time celecoxib (From Celebrex) Allergy Hives Verified 10/30/24 16:49 ramipril Allergy Hives Verified 10/30/24 16:49 rofecoxib (From Vioxx) Allergy Hives Verified 10/30/24 16:49 letrozole (From Femara) AdvReac Pain in Verified 10/30/24 16:49 joints Social History Smoking Status: Former smoker ROS Constitutional Constitutional: Denies chills or fever(s) Eyes Eyes: Denies change in vision ENT HEENT: Denies abnormal hearing Cardiovascular Cardiovascular: Denies chest pain Respiratory/Chest Respiratory/Chest: Denies shortness of breath at rest Gastrointestinal Gastrointestinal: Reports abdominal pain and hematochezia; Denies nausea or vomiting Genitourinary Genitourinary: Denies dysuria Musculoskeletal Musculoskeletal: Denies back pain Integumentary Integumentary: Denies dry skin Neurologic Neurologic: Denies abnormal gait Psychiatric Psychiatric: Denies anxiety Hematologic/Lymphatic Hematologic/Lymphatic: Reports anemia Vital Signs Vital Signs Vital Signs: 10/30/24 16:49 10/30/24 17:49 10/30/24 20:00 Temperature 96.3 F L Temperature Source Temporal Pulse Rate 84 Pulse Rate [Lying] 72 Pulse Rate [Sitting (for 1 minute prior to obtaining)] 73 Pulse Rate [Standing (for 1 minute prior to obtaining)] 74 Respiratory Rate 15 Blood Pressure 151/103 H 140/70 H Blood Pressure [Lying] 175/74 H Blood Pressure [Sitting (for 1 minute prior to obtaining)] 169/71 H Blood Pressure [Standing (for 1 minute prior to obtaining)] 150/76 H Blood Pressure Mean 119 93 Blood Pressure Mean [Lying] 107 Blood Pressure Mean [Sitting (for 1 minute prior to obtaining)] 103 Blood Pressure Mean [Standing (for 1 minute prior to obtaining)] 100 Pulse Ox 97 Oxygen Delivery Method Room Air Weight Weight: 190 lb Body Mass Index (BMI) 35.9 Physical Exam Const alert and oriented x3 General Appearance: cooperative and well developed HEENT normocephalic and head/scalp atraumatic Eyes PERRL Neck no lymphadenopathy Lymph Lymphatic: no lymphadenopathy noted Resp normal respiratory effort, normal air movement and clear to auscultation bilaterally Cardio regular rate, regular rhythm, S1 normal heart sound, S2 normal heart sound and no murmurs GI GI Narrative: +BS Inspection: abdominal distention Palpation: tender LLQ Extremity normal capillary refill Skin General Skin Exam: no breakdown Neuro no focal motor deficits and no sensory deficits noted Psych thought process normal, cooperative and affect normal Results Lab / Micro Data 10/30/24 17:18 10/30/24 17:18 Labs: Laboratory Results - last 24 hr 10/30/24 17:18: WBC 5.9, RBC 3.27 L, Hgb 9.7 L, Hct 28.6 L, MCV 87.5, MCH 29.7, MCHC 33.9, RDW Std Deviation 48.5 H, RDW Coeff of Miriam 15.3 H, Plt Count 276, MPV 8.1, Immature Gran % (Auto) 0.500, Neut % (Auto) 52.6, Lymph % (Auto) 35.5, [place] % (Auto) 8.3, Eos % (Auto) 2.2, Baso % (Auto) 0.9, Absolute Neuts (auto) 3.1, Absolute Lymphs (auto) 2.09, Nucleated RBC % 0, Sodium 135, Potassium 4.0, Chloride 99, Carbon Dioxide 21.5, Anion Gap 14, BUN 15, Creatinine 0.93, Estim Creat Clear Calc 52.11, Est GFR (MDRD) Non-Af 64, BUN/Creatinine Ratio 15.7, Glucose 193 H, Lactic Acid 1.5, Calcium 9.3 10/30/24 18:17: Urine Color Straw, Urine Clarity Clear, Urine pH 6.5, Ur Specific [place] 1.010, Urine Protein 30 H, Urine Glucose (UA) Normal, Urine Ketones Negative, Urine Occult Blood 25 H, Urine Nitrite Negative, Urine Bilirubin Negative, Urine Urobilinogen Normal, Ur Leukocyte Esterase 25 H, Urine RBC 0-5 SEEN, Urine WBC 0-5 SEEN, Ur Squamous Epith Cells 0-5 SEEN, Urine Bacteria 0 SEEN, Urine Mucus 0 SEEN Micro: Microbiology 10/30/24 17:21 Stool Stool Occult Blood (MONY) - Final Occult Blood Positive Imaging Radiology Impression Abdomen/Pelvis CT 10/30/24 17:08 IMPRESSION: Mild stool burden within the large bowel. No inflammatory changes of the bowel loops. Umbilical hernia containing a focal loop of transverse colon, no inflammatory changes to suggest strangulation. [facility] Assessment & Plan Assessment/Plan (1) Weakness: (2) Anemia: (3) Acute lower GI bleeding: PLAN: Plan 1 acute GI bleed?stable at present with no active bleeding at this time?admit patient to general medical floor, IV Protonix 40 mg every 12 hours, make n.p.o. at midnight pending evaluation from GI specialist Dr. Glez. Repeat H&H every 4 hours. 2. DVT prophylaxis?SCDs 3. Diabetes?blood sugar checks every 6 hours and will add sliding scale insulin 4. Hyperlipidemia?continue statin medication 5. Hypertension?continue routine home antihypertensive therapy Charges/Coding Visit Charges Inpatient E&M: 67173 Init Hosp L2
[2024-10-30 21:39] VITALS: BP 167/82; PULSE 84; RESP 15; TEMP 35.7; O2SAT 97
[2024-10-30 22:16] VITALS: O2SAT 96; BMI 34.2
[2024-10-30 22:18] VITALS: BP 160/70; PULSE 70; RESP 16; TEMP 36.7; O2SAT 96
[2024-10-30] MEDS: Pantoprazole Sodium 40 MG in 0.9% Normal Saline (100mL MB+) 100 ML 330 MG IV (22:46)
[2024-10-30] MEDS: Atorvastatin Calcium 10 MG Tablet 5 MG PO (22:47)
[2024-10-30] MEDS: MELATONIN 3 MG TABLET PO (22:47)
[2024-10-30 23:14] LABS: Hematocrit 27.7 % (37-47); Hemoglobin 9.2 g/dL (12.0-15.0)
[2024-10-31 03:01] LABS: Hematocrit 26.6 % (37-47); Hemoglobin 8.9 g/dL (12.0-15.0)
[2024-10-31 04:18] VITALS: BP 138/65; PULSE 72; RESP 16; TEMP 36.8; O2SAT 95
--- NOTE | 2024-10-31 05:00 | EKG12_ITS ---
Test Reason : AM EKG Blood Pressure : */* mmHG Vent. Rate : 74 BPM Atrial Rate : 74 BPM P-R Int : 146 ms QRS Dur : 82 ms QT Int : 408 ms P-R-T Axes : 65 43 60 degrees QTcB Int : 452 ms Normal sinus rhythm Low voltage QRS Borderline ECG When compared with ECG of 07-Sep-2017 13:02, No significant change was found Confirmed by ZORA ARCHER, ERICK ([id number]), non linear editor YAMINI ABREU ([id number]) on 10/31/2024 8:29:32 AM Referred By: Bruce Mcclain Confirmed By: ERICK BLAKELY MD
[2024-10-31] MEDS: 0.9% Normal Saline (1000mL) 1,000 ML 125 ML IV ×2 (05:47→17:48)
[2024-10-31 06:48] LABS: Absolute Lymphocyte Count 2.11 X10^3/uL (0.83-4.51); Absolute Neutrophil Count 2.3 X10^3/uL (2.0-7.7); Basophil# 0.03 X10^3/uL; Basophil% 0.6 % (0-1); Eosinophil# 0.17 X10^3/uL; Eosinophils% 3.4 % (0-5); Hematocrit 27.9 % (37-47); Hemoglobin 9.3 g/dL (12.0-15.0); Lymphocyte # 2.11 X10^3/ul (0.83-4.51); Lymphocyte % 41.9 % (19-41); Mean Corp Hgb Conc 33.3 g/dL (32-36); Mean Corpuscular Volume 86.9 fL (81-99); Mean Platelet Vol. 8.2 fl (6.2-12.0); Monocyte# 0.43 X10^3/uL; Monocyte% 8.5 % (0-10); NRBC Flagged by Analyzer 0 % (0-5); Neutrophil # 2.27 X10^3/uL (2.7-7.7); Neutrophil % 45.2 % (47-70); Platelet Count 250 K/mm3 (150-450); RBC Distribution Width CV 15.4 % (11.6-14.6); RBC Distribution Width SD 48.9 fl (35.1-43.9); Red Blood Count 3.21 M/mm3 (4.2-5.4)
[2024-10-31 06:51] LABS: International Normalized Ratio 1.2; Prothrombin Time (Protime)PT. 15.8 SECONDS (11.7-14.9)
[2024-10-31 06:52] LABS: Partial Thromboplast Time 28.9 Seconds (24.1-36.2)
[2024-10-31 07:11] LABS: Hemoglobin A1c 7.5 % (<=5.6)
[2024-10-31 07:15] LABS: ALB/GLOB Ratio 1.1 RATIO (0.9-2.4); AST(SGOT) 33 U/L (<=31); Alanine Aminotransfer ALT/SGPT 27 U/L (<=34); Albumin, Serum 3.6 g/dL (3.4-4.8); Alkaline Phosphatase 66 U/L (35-104); Anion Gap 11 (5-15); BUN 11 mg/dL (4-19); BUN/Creat Ratio 12.3 RATIO (10-20); Calcium,Total 9.2 mg/dL (7.6-11.0); Chloride 104 mmol/L (98-108); Creatinine, Serum 0.88 mg/dL (0.70-1.20); EST Glomerular Filtration Rate 68 (>60); Estimated Creatinine Clearance 53.72 ml/min (50-250); Globulin 3.2 g/dL (2.2-4.2); Glucose 125 mg/dL (70-99); Potassium 4.3 mmol/L (3.3-5.1); Protein, Total 6.8 g/dL (5.9-8.4); Sodium Level 139 mmol/L (133-145); Total Bilirubin 0.34 mg/dL (0.00-1.30)
--- NOTE | 2024-10-31 07:43 | PCM.PN.HOSP ---
Reason for Visit Reason for Visit: Diagnoses Anemia, unspecified (10/30/24) Gastrointestinal hemorrhage, unspecified (10/30/24) Weakness (10/30/24) Subjective Subjective Patient is a 73-year-old lady with history of hemorrhoids, history of colon cancer status post resection who presented with bleeding per rectum Objective Data Objective Data Vital Signs: Vital Signs Temp Pulse Resp BP Pulse Ox O2 Del Method 98.2 F 72 16 138/65 H 95 Room Air 10/31/24 04:18 10/31/24 04:18 10/31/24 04:18 10/31/24 04:18 10/31/24 04:18 10/31/24 04:18 Oxygen Delivery Method Room Air Weight: 82.3 kg Body Mass Index (BMI) 34.2 Intake & Output: Intake and Output for Last 24 Hours 10/29/24 10/30/24 10/31/24 23:59 23:59 23:59 Intake Total 110 / 410 1300 / 1300 Balance 110 / 410 1300 / 1300 Lab / Micro Data 10/31/24 06:23 10/31/24 06:23 Labs: Laboratory Results - last 24 hr 10/30/24 17:18: WBC 5.9, RBC 3.27 L, Hgb 9.7 L, Hct 28.6 L, MCV 87.5, MCH 29.7, MCHC 33.9, RDW Std Deviation 48.5 H, RDW Coeff of Miriam 15.3 H, Plt Count 276, MPV 8.1, Immature Gran % (Auto) 0.500, Neut % (Auto) 52.6, Lymph % (Auto) 35.5, [place] % (Auto) 8.3, Eos % (Auto) 2.2, Baso % (Auto) 0.9, Absolute Neuts (auto) 3.1, Absolute Lymphs (auto) 2.09, Nucleated RBC % 0, Sodium 135, Potassium 4.0, Chloride 99, Carbon Dioxide 21.5, Anion Gap 14, BUN 15, Creatinine 0.93, Estim Creat Clear Calc 52.11, Est GFR (MDRD) Non-Af 64, BUN/Creatinine Ratio 15.7, Glucose 193 H, Lactic Acid 1.5, Calcium 9.3 10/30/24 18:17: Urine Color Straw, Urine Clarity Clear, Urine pH 6.5, Ur Specific [place] 1.010, Urine Protein 30 H, Urine Glucose (UA) Normal, Urine Ketones Negative, Urine Occult Blood 25 H, Urine Nitrite Negative, Urine Bilirubin Negative, Urine Urobilinogen Normal, Ur Leukocyte Esterase 25 H, Urine RBC 0-5 SEEN, Urine WBC 0-5 SEEN, Ur Squamous Epith Cells 0-5 SEEN, Urine Bacteria 0 SEEN, Urine Mucus 0 SEEN 10/30/24 22:44: Hgb 9.2 L, Hct 27.7 L 10/31/24 02:29: Hgb 8.9 L, Hct 26.6 L 10/31/24 06:23: WBC 5.0, RBC 3.21 L, Hgb 9.3 L, Hct 27.9 L, MCV 86.9, MCH 29.0, MCHC 33.3, RDW Std Deviation 48.9 H, RDW Coeff of Miriam 15.4 H, Plt Count 250, MPV 8.2, Immature Gran % (Auto) 0.400, Neut % (Auto) 45.2 L, Lymph % (Auto) 41.9 H, [place] % (Auto) 8.5, Eos % (Auto) 3.4, Baso % (Auto) 0.6, Absolute Neuts (auto) 2.3, Absolute Lymphs (auto) 2.11, Nucleated RBC % 0, PT 15.8 H, INR 1.2, APTT 28.9, Sodium 139, Potassium 4.3, Chloride 104, Carbon Dioxide 24.0, Anion Gap 11, BUN 11, Creatinine 0.88, Estim Creat Clear Calc 53.72, Est GFR (MDRD) Non-Af 68, BUN/Creatinine Ratio 12.3, Glucose 125 H, Hemoglobin A1c 7.5, Calcium 9.2, Total Bilirubin 0.34, AST 33 H, ALT 27, Alkaline Phosphatase 66, Total Protein 6.8, Albumin 3.6, Globulin 3.2, Albumin/Globulin Ratio 1.1 Micro: Microbiology 10/30/24 17:21 Stool Stool Occult Blood (MONY) - Final Occult Blood Positive Radiography Diagnostic Testing: Radiology Impression Abdomen/Pelvis CT 10/30/24 17:08 IMPRESSION: Mild stool burden within the large bowel. No inflammatory changes of the bowel loops. Umbilical hernia containing a focal loop of transverse colon, no inflammatory changes to suggest strangulation. Reading Location: [facility] Physical Exam Narrative GENERAL: cooperative HEENT: Atraumatic; normocephalic EYES; Anicteric, Normal Conjunctiva NECK; supple, normal thyroid, RESPIRATORY: Diminished to auscultation CARDIOVASCULAR: Regular S1 S2, GI: soft, normoactive bowel sounds, : No Renal angle tenderness; EXTREMITIES: No edema, no clubbing, MUSCULOSKELETAL: no muscle wasting NEURO: Awake; no lateralizing signs. SKIN: No Rash PSYCH; Flat affect Assessment & Plan Assessment/Plan (1) Weakness: (2) Anemia: (3) Acute lower GI bleeding: PLAN: Plan Patient is a 73-year-old lady with history of hemorrhoids who presented with bleeding per rectum 1. Acute GI bleed ? CT of the abdomen and pelvis obtained did show mild stool burden within the large bowel no inflammatory changes. Was also found to have umbilical hernia containing fecal loops of transverse colon no inflammatory changes to suggest strangulation. Patient admitted to regular nursing floor managed with IV fluids, bowel rest n.p.o. after midnight with consultation placed to GI. 2. Anemia Secondary to acute blood loss anemia from above monitoring H&H with plans to transfuse if patient hemoglobin falls below 7 or patient is deemed to be symptomatic 3. History of colon cancer ? Patient was treated with resection and has remained in remission since 2018 4. History of right breast CVA ? Patient was treated with bilateral mastectomy and chemo 5. Diabetes mellitus type II -patient's oral hypoglycemics held. Placed on long acting insulin, Accu-Cheks a.c. and at bedtime and covered with sliding scale insulin 6. Hypertension ? Blood pressure controlled, home medications continued with dose adjustment as needed 7. Dyslipidemia ?Patient is on statin therapy, continued at home dose 8. Class I obesity with BMI of 34.3 ? Weight loss advised 9. Osteoporosis ? Patient is on alendronate as outpatient plan is to resume on discharge 10. History of recent neck surgery ? On account of cervical spinal stenosis surgery was performed on 8123 July 2024. Patient was admitted placed 11. DVT prophylaxis ? Avoided the use of chemoprophylaxis given patient presentation Time spent in the patient's overall evaluation,decision-making process, review of diagnostic data, adjustment of management, discussion with other providers, nursing nursing and ancillary staff involved in patient's care documentation, 52 minutes Advance planning; did discuss with the patient regarding advanced directives as well as CODE STATUS. Did explain the various scenarios involved ( FULL CODE, DNR CCA, DNR CCA with no intubation, and DNR CC and what each meant) patient elected to be DNR CCA no intubation. Order was placed. Time spent on discussion 18 minutes. Charges/Coding Multi Select Codes Visit Charges Visit Charges: [address] [place] [address] Hospitalists' Procedures Procedures: 32906 Advncd Care Plan 30 Min
[2024-10-31 10:00] VITALS: O2SAT 95
[2024-10-31] MEDS: Pantoprazole Sodium 40 MG in 0.9% Normal Saline (100mL MB+) 100 ML 330 MG IV ×2 (10:00→23:10)
[2024-10-31 10:18] VITALS: BP 136/70; PULSE 70; RESP 17; TEMP 36.9; O2SAT 95
[2024-10-31 10:33] LABS: Hematocrit 27.6 % (37-47); Hemoglobin 9.3 g/dL (12.0-15.0)
--- NOTE | 2024-10-31 11:08 | CASEMGMT ---
EDMUND CLIFTON Assessment Face to Face with patient for initial transition planning/care coordination assessment. EDMUND CLIFTON introduced self and role at [facility], pt voices understanding. Pt is A&Ox4 and is resting comfortably in bed and is calm. Care providers, pharmacy, and demographics verified. Admitting dx: GI Bleed LACE Strata: 2 PCP: Terrie Blanton Specialists: Donte (Whately Neurosurgeon) , Mateo RICH Oncology Preferred Pharmacy: [facility] Insurance: [employer] A/B, [employer] [facility] Supplement Prescription Benefit: Yes LNOK: Ashely Trevino (Daughter) Living Arrangements: Pt lives alone in 2 story home with 2 steps to enter. Pt states that her family [place] the [place] ADLs/IADLs: Ind Transportation: Self, family. denies concerns DME: Access to a cane, walker, BP monitor, grab bars, and shower chair. HHC/SNF: Pt states that she recently had ortho surgery completed in late July and was active with [facility] for PT. Pt states that the services were recently discontinued as they are no longer needed. Denies SNF Pt?s goal: Home Plan: Home, no additional needs. 6-Click score is 24. GI is consulted. Pt states that her family lives on the same farm and that her daughter is an RN. Pt states that her GS plans to stay with the pt after DC. Pt denies the need for HHC or OP Tx. Pt states that she feels safe returning home with her family once she is medically ready and denies further concerns. Stacy Chou RN, CM
[2024-10-31 12:26] LABS: Bedside Glucose 180 mg/dL (74-106)
[2024-10-31 15:28] VITALS: BP 128/72; PULSE 68; RESP 16; TEMP 36.6; O2SAT 95
[2024-10-31 17:07] LABS: Bedside Glucose 162 mg/dL (74-106)
[2024-10-31] MEDS: Bisacodyl 5 MG Tablet 20 MG PO (17:39)
[2024-10-31] MEDS: Insulin Lispro 100 UNIT/ML INSULN.PEN SC (17:48)
[2024-10-31] MEDS: Polyethylene Glycol 3350 BOWEL PREP PO (19:44)
[2024-10-31 22:00] VITALS: BP 187/90; PULSE 81; RESP 16; TEMP 37.1; O2SAT 100
[2024-10-31] MEDS: Atorvastatin Calcium 10 MG Tablet 5 MG PO (22:08)
[2024-10-31] MEDS: MELATONIN 3 MG TABLET PO (22:08)
[2024-10-31 23:23] LABS: Bedside Glucose 186 mg/dL (74-106)
[2024-11-01] VITALS (15 sets, daily range): BP systolic 107–158; BP diastolic 59–116; PULSE 68–87; RESP 14–18; TEMP 36.1–37; O2SAT 93–100; BMI 34.2
[2024-11-01] MEDS: 0.9% Normal Saline (1000mL) 1,000 ML 125 ML IV ×3 (01:42→21:19)
[2024-11-01 06:25] LABS: Absolute Lymphocyte Count 1.99 X10^3/uL (0.83-4.51); Absolute Neutrophil Count 2.8 X10^3/uL (2.0-7.7); Basophil# 0.02 X10^3/uL; Basophil% 0.4 % (0-1); Eosinophil# 0.13 X10^3/uL; Eosinophils% 2.5 % (0-5); Hematocrit 28.2 % (37-47); Hemoglobin 9.3 g/dL (12.0-15.0); Lymphocyte # 1.99 X10^3/ul (0.83-4.51); Lymphocyte % 37.7 % (19-41); Mean Corpuscular Hgb 29.1 pg (27.0-32.0); Mean Corpuscular Volume 88.1 fL (81-99); Mean Platelet Vol. 8.2 fl (6.2-12.0); Monocyte# 0.38 X10^3/uL; Monocyte% 7.2 % (0-10); NRBC Flagged by Analyzer 0 % (0-5); Neutrophil # 2.75 X10^3/uL (2.7-7.7); Platelet Count 236 K/mm3 (150-450); RBC Distribution Width CV 15.1 % (11.6-14.6); RBC Distribution Width SD 48.8 fl (35.1-43.9); White Blood Count 5.3 K/mm3 (4.4-11.0)
[2024-11-01 06:33] LABS: Magnesium 1.7 mg/dL (1.5-2.2); Phosphorus 3.4 mg/dL (2.7-4.5)
[2024-11-01 06:35] LABS: Anion Gap 11 (5-15); BUN 8 mg/dL (4-19); BUN/Creat Ratio 10.1 RATIO (10-20); Calcium,Total 8.5 mg/dL (7.6-11.0); Carbon Dioxide 20.7 mmol/L (21.0-32.0); Chloride 107 mmol/L (98-108); Creatinine, Serum 0.76 mg/dL (0.70-1.20); EST Glomerular Filtration Rate 82 (>60); Estimated Creatinine Clearance 59.09 ml/min (50-250); Glucose 183 mg/dL (70-99); Potassium 4.2 mmol/L (3.3-5.1); Sodium Level 138 mmol/L (133-145)
[2024-11-01 07:12] LABS: Bedside Glucose 177 mg/dL (74-106)
--- NOTE | 2024-11-01 07:23 | PN.HOSP_ITS ---
Reason for Visit Reason for Visit: Diagnoses Anemia, unspecified (10/30/24) Gastrointestinal hemorrhage, unspecified (10/30/24) Weakness (10/30/24) Subjective Subjective Patient seen currently being prepped for colonoscopy Objective Data Objective Data Vital Signs: Vital Signs Temp Pulse Resp BP Pulse Ox O2 Del Method 97.9 F 71 16 158/77 H 99 Room Air 11/01/24 06:44 11/01/24 06:44 11/01/24 06:44 11/01/24 06:44 11/01/24 06:44 11/01/24 06:44 Oxygen Delivery Method Room Air Weight: 82.3 kg Body Mass Index (BMI) 34.2 Intake & Output: Intake and Output for Last 24 Hours 10/30/24 10/31/24 11/01/24 23:59 23:59 23:59 Intake Total 110 / 410 2287.08 / 2287.08 1097.5 / 1097.5 Balance 110 / 410 2287.08 / 2287.08 1097.5 / 1097.5 Lab / Micro Data 11/01/24 05:27 11/01/24 05:27 Labs: Laboratory Results - last 24 hr 10/31/24 10:18: Hgb 9.3 L, Hct 27.6 L 10/31/24 11:25: POC Glucose 180 H 10/31/24 16:41: POC Glucose 162 H 10/31/24 23:01: POC Glucose 186 H 11/01/24 05:27: WBC 5.3, RBC 3.20 L, Hgb 9.3 L, Hct 28.2 L, MCV 88.1, MCH 29.1, MCHC 33.0, RDW Std Deviation 48.8 H, RDW Coeff of Miriam 15.1 H, Plt Count 236, MPV 8.2, Immature Gran % (Auto) 0.200, Neut % (Auto) 52.0, Lymph % (Auto) 37.7, [place] % (Auto) 7.2, Eos % (Auto) 2.5, Baso % (Auto) 0.4, Absolute Neuts (auto) 2.8, Absolute Lymphs (auto) 1.99, Nucleated RBC % 0, Sodium 138, Potassium 4.2, Chloride 107, Carbon Dioxide 20.7 L, Anion Gap 11, BUN 8, Creatinine 0.76, Estim Creat Clear Calc 59.09, Est GFR (MDRD) Non-Af 82, BUN/Creatinine Ratio 10.1, G lucose 183 H, Calcium 8.5, Phosphorus 3.4, Magnesium 1.7 11/01/24 06:35: POC Glucose 177 H Micro: Microbiology 10/30/24 17:21 Stool Stool Occult Blood (MONY) - Final Occult Blood Positive Physical Exam Narrative GENERAL: cooperative HEENT: Atraumatic; normocephalic EYES; Anicteric, Normal Conjunctiva NECK; supple, normal thyroid, RESPIRATORY: Diminished to auscultation CARDIOVASCULAR: Regular S1 S2, GI: soft, normoactive bowel sounds, : No Renal angle tenderness; EXTREMITIES: No edema, no clubbing, MUSCULOSKELETAL: no muscle wasting NEURO: Awake; no lateralizing signs. SKIN: No Rash PSYCH; Flat affect Assessment & Plan Assessment/Plan (1) Weakness: (2) Anemia: (3) Acute lower GI bleeding: PLAN: Plan Patient is a 73-year-old lady with history of hemorrhoids who presented with bleeding per rectum 1. Acute GI bleed ? CT of the abdomen and pelvis obtained did show mild stool burden within the large bowel no inflammatory changes. Was also found to have umbilical hernia containing fecal loops of transverse colon no inflammatory changes to suggest strangulation. Patient admitted to regular nursing floor managed with IV fluids, bowel rest n.p.o. after midnight with consultation placed to GI. ?/09/2024; patient scheduled to undergo colonoscopy as part of her Evaluation of GI bleed 2. Anemia Secondary to acute blood loss anemia from above monitoring H&H with plans to transfuse if patient hemoglobin falls below 7 or patient is deemed to be symptomatic 3. History of colon cancer ? Patient was treated with resection and has remained in remission since 2018 4. History of right breast CVA ? Patient was treated with bilateral mastectomy and chemo 5. Diabetes mellitus type II -patient's oral hypoglycemics held. Placed on long acting insulin, Accu-Cheks a.c. and at bedtime and covered with sliding scale insulin 6. Hypertension ? Blood pressure controlled, home medications continued with dose adjustment as needed 7. Dyslipidemia ?Patient is on statin therapy, continued at home dose 8. Class I obesity with BMI of 34.3 ? Weight loss advised 9. Osteoporosis ? Patient is on alendronate as outpatient plan is to resume on discharge 10. History of recent neck surgery ? On account of cervical spinal stenosis surgery was performed on 23 July 2024. Patient was admitted placed 11. DVT prophylaxis ? Avoided the use of chemoprophylaxis given patient presentation Time spent in the patient's overall evaluation,decision-making process, review of diagnostic data, adjustment of management, discussion with other providers, nursing nursing and ancillary staff involved in patient's care documentation, 38 minutes Charges/Coding Visit Charges Inpatient E&M: 29942 [facility] Hosp L2
[2024-11-01] MEDS: Pantoprazole Sodium 40 MG in 0.9% Normal Saline (100mL MB+) 100 ML 330 MG IV ×2 (10:27→21:20)
--- NOTE | 2024-11-01 12:59 | PCM.PRE.AN2 ---
ASA Classification* ASA Classification ASA Classification: 3 Assessment & Plan Anesthesia* Anesthesia Assessment Anesthesia Assessment: Discussed sedation and/or anesthesia options, risks, benefits, and alternatives with patient/parents/legal guardian/POA. Questions invited. The patient/parents/legal guardian/POA seems to understand and agrees to proceed with anesthesia plan. Reviewed the physical assessment, medical history, allergy history and patient home medications list prior to surgery/procedure/anesthetic and documented any changes. Performed airway and anesthesia risk assessments. Anesthesia Type Anesthesia Type: MAC (Has neck collar in place from prior neck surgery Jul 2024) Anesthesia Focused Assessment* Temperature: 97.7 F Pulse Rate: 68 Blood Pressure: 147/73 Respiratory Rate: 14 Pulse Ox: 100 Airway Assessment Mouth opens: >3 cm Mallampati Score: II Focused Labs Anesthesia Preop lab: CBC WBC 5.3 K/mm3 (4.4-11.0) 11/01/24 05:11/01/24 RBC 3.20 M/mm3 (4.2-5.4) L 11/01/24 05:11/01/24 Hgb 9.3 g/dL (12.0-15.0) L 11/01/24 05:27 11/01/24 Hct 28.2 % (37-47) L 11/01/24 05:11/01/24 Plt Count 236 K/mm3 (150-450) 11/01/24 05:27 11/01/24 CHEMISTRY Potassium 4.2 mmol/L (3.3-5.1) 11/01/24 05:11/01/24 Sodium 138 mmol/L (133-145) 11/01/24 05:27 11/01/24 Magnesium 1.7 mg/dL (1.5-2.2) 11/01/24 05:11/01/24 Phosphorus 3.4 mg/dL (2.7-4.5) 11/01/24 05:11/01/24 BUN 8 mg/dL (4-19) 11/01/24 05:11/01/24 Creatinine 0.76 mg/dL (0.70-1.20) 11/01/24 05:11/01/24 Glucose 183 mg/dL (70-99) H 11/01/24 05:27 11/01/24 POC Glucose 177 mg/dL (74-106) H 11/01/24 06:35 11/01/24 COAG PT 15.8 SECONDS (11.7-14.9) H 10/31/24 06:23 10/31/24 Pre-Assessment Diagnosis/Proposed Procedure Planned Operative Procedure(s): Colonoscopy Anesthesia History 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 When Was Last Pacemaker Check QUESTION #4 FULL TEXT: You/Your Family Experience fever (hyperthermia) with Anesthesia Last Oral Intake Last Oral intake: Last Oral Intake NPO since 00:00 11/01/24 10:18 Meds taken in AM with sips of No 11/01/24 10:18 water? Meds patient instructed to take am of surgery PONV PONV - live games dealer: PONV - live games dealer Female HX of Motion Sickness HX of N/V After Surgery Non-Smoker Duration of Surgery greater than 60 minutes Number of Risk Factors PONV Score Height & Weight Height & Weight: Anesthesia: Height & Weight Height 5 ft 1 in 11/01/24 10:18 Weight: 82.3 kg 11/01/24 10:18 Body Mass Index (BMI) 34.2 11/01/24 10:18 Respiratory Assessment Respiratory Assessment - live games dealer: Respiratory Tract Infection Hx - live games dealer Hx Respiratory Tract Infection No 11/01/24 06:50 STOP Sleep Apnea STOP Sleep Apnea - live games dealer: STOP Sleep Apnea - live games dealer Hx Hypertension No 10/30/24 22:21 Hx Sleep Apnea No 10/30/24 22:21 CPAP BIPAP Do you snore loudly (louder No 10/30/24 22:21 than talking or can be heard Do you often feel tired/ No 10/30/24 22:21 fatigued/ sleepy during daytime? Has anyone observed you stop No 10/30/24 22:21 breathing during sleep? STOP Results Negative 10/30/24 22:21 QUESTION #5 FULL TEXT : Do you snore loudly (louder than talking or can be heard through closed doors)? 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 Specify any problems Hx of Preganancy in last 3 N/A 10/30/24 22:21 Months Nurse Filling Out Transfusion AHINES 10/30/24 22:21 & Questions: Date: 10/30/24 10/30/24 22:21 Time: 22:22 10/30/24 22:21 Patient unable to answer at this time (ie. confused, unrespo /Reproduction History /Reproductive History - live games dealer: /Reproductive Hx- live games dealer Hx Now No 11/01/24 06:50 Gestational Age (in weeks): EDC: Hx Hx Para Hx Section SAB No 11/01/24 06:50 Active Medications Active Medications: Current Medications Generic Name Dose Route Start Last Admin Trade Name Freq PRN Reason Stop Dose Admin Atorvastatin Calcium 5 mg 10/30/24 23:00 10/31/24 22:08 Atorvastatin Calcium 10 Mg Tablet PO 5 mg QHS JUSTINO Administration Hydralazine HCl 10 mg 10/31/24 22:14 Hydralazine 20 Mg/Ml Vial IV Q4H PRN PRN SBP > 160 Protocol Sodium Chloride 1,000 mls @ 125 mls/hr 10/30/24 17:20 11/01/24 10:28 IV 125 mls/hr .Q8H JUSTINO Administration Pantoprazole Sodium 40 mg/ 110 mls @ 330 mls/hr 10/30/24 23:00 11/01/24 10:50 Sodium Chloride IV Infused Q12 JUSTINO Infusion Insulin Glargine 30 unit 10/30/24 23:00 10/31/24 23:02 Insulin Glargine-Yfgn 100 Unit/Ml Pen SC Not Given QHS JUSTINO Insulin Human Lispro 0 unit 10/30/24 22:20 11/01/24 12:37 Insulin Lispro 100 Unit/Ml Insuln.Pen SC Not Given ACHS [facility] Protocol Iopamidol 0 ml 10/30/24 17:15 10/31/24 16:52 Contrast Allergy Safety Check IV Not Given X1 [facility] Losartan Potassium 25 mg 10/31/24 10:00 11/01/24 10:02 Losartan Potassium 25 Mg Tablet PO Not Given DAILY [facility] Protocol Melatonin 3 mg 10/30/24 23:00 10/31/24 22:08 Melatonin 3 Mg Tablet PO 3 mg QHS JUSTINO Administration Ondansetron HCl 4 mg 10/30/24 23:00 Ondansetron 4 Mg/2 Ml Vial IV Q8H PRN PRN NAUSEA/VOMITING Sodium Chloride 10 - 40 ml 10/30/24 22:21 0.9% Saline Lock 10 Ml Syringe IV UD PRN SALINE FLUSH Tolterodine Tartrate 4 mg 10/31/24 10:00 11/01/24 10:02 Tolterodine Tartrate 4 Mg Cap.Sa PO Not Given DAILY JUSTINO PFSH Medical History Breast cancer Colorectal cancer Cancer Depression Diabetes Kidney disease GERD (gastroesophageal reflux disease) Former smoker Atrial fibrillation Hypertension Home Medications ?Medication ?Instructions ?Recorded ?Last Taken ?Type alendronate 70 mg tablet (Fosamax) 70 mg PO QWEEK osteoporosis 09/06/17 10/30/24 History aspirin 81 mg tablet,delayed 81 mg PO DAILY HEART 09/06/17 Unknown History release (Aspir-Low) insulin aspart U-100 100 unit/mL 24 unit subcut TIDCM DIABETES 09/06/17 Unknown History (3 mL) subcutaneous pen (Novolog FlexPen U-100 Insulin aspart) insulin glargine 100 unit/mL (3 35 unit subcut QHS DIABETES 09/06/17 Unknown History mL) subcutaneous pen (Lantus Solostar U-100 Insulin) omeprazole 40 mg capsule,delayed 40 mg PO DAILY REFLUX 09/06/17 09/13/17 06:00 History release simvastatin 10 mg tablet (Zocor) 10 mg PO QHS CHOLESTEROL 09/06/17 Unknown History valsartan 40 mg tablet (Diovan) 40 mg PO BID BP 09/06/17 09/13/17 06:00 History magnesium oxide 400 mg (241.3 mg 400 mg PO DAILY muscle spasm 10/30/24 Unknown History magnesium) tablet oxybutynin chloride 10 mg 10 mg PO DAILY bladder 10/30/24 Unknown History tablet,extended release 24 hr Allergy/AdvReac Type Severity Reaction Status Date / Time celecoxib (From Celebrex) Allergy Hives Verified 10/30/24 16:49 ramipril Allergy Hives Verified 10/30/24 16:49 rofecoxib (From Vioxx) Allergy Hives Verified 10/30/24 16:49 letrozole (From Femara) AdvReac Pain in Verified 10/30/24 16:49 joints Social History Smoking Status: Former smoker Review of Systems (Anesthesia) ROS Narrative System reviewed and no additional complaints, except as documented.
--- NOTE | 2024-11-01 13:30 | COLBX_PTH ---
PATIENT: ORION SORENSEN LOC: MS3 U#:[id number] AGE/SX: 73/F ROOM: IL319 RE10/30/[address]: Dr. Sushant Olmedo MD : 1950 BED: 1 DIS: 11/02/2024 SPEC #: [id number] RECD: 11/02/24 09:05 STATUS: HERNAN REJuli #: [id number] ANNA: 11/01/24 13:[address]: Charles Glez DEPT: SURGICAL PATHOLOGY RECD BY: Noah Kendall ENTERED: 11/02/24 09:05 SP TYPE: COLON BX OTHR DR: MD Dr. Joe Nuñez MD Dr. Remus Ungur, DO Terrie Blanton, NELLA-C Tissues: A - SPLENIC FLEXURE Procedures: Surgery Specimen Level IV HEADER OPERATION: Colonoscopy with hemostasis and biopsies PRE-OP DIAGNOSIS: GI bleed TISSUE SUBMITTED: A- Splenic flexure polyp biopsy MICROSCOPIC DIAGNOSIS A. Colon, Splenic Flexure, Polyp, Biopsy: - Sessile serrated lesion. MICROSCOPIC DESCRIPTION Slides are reviewed. GROSS DESCRIPTION A. Received in formalin in a container labeled with the patient's name, date of , and splenic flexure polyp biopsy are 2 clark-pink fragments of mucosal tissue, each measuring 0.3 x 0.2 x 0.2 cm. Submitted in [facility]to in [facility] 11-02-2024 CPT:11973
--- NOTE | 2024-11-01 14:38 | CON.PCM.GI_ITS ---
HPI Consult Data Date of Consult: 11/01/24 HPI Narrative Reason for Consultation: GI bleed HPI Narrative: ORION SORENSEN, is a 73 F who presented to the emergency department complaint of rectal bleeding for about a month off-and-on. She has history of hemorrhoids. Patient also started with some abdominal pain yesterday in the left lower abdomen. She does have history of prior diverticulitis. She has history of prior colon cancer with partial bowel resection. Patient denies fevers or chills or sweats. She denies vomiting. She is not anticoagulated [facility] Medical History Breast cancer Colorectal cancer Cancer Depression Diabetes Kidney disease GERD (gastroesophageal reflux disease) Former smoker Atrial fibrillation Hypertension Home Medications ?Medication ?Instructions ?Recorded ?Last Taken ?Type alendronate 70 mg tablet (Fosamax) 70 mg PO QWEEK oste oporosis 09/06/17 10/30/24 History aspirin 81 mg tablet,delayed 81 mg PO DAILY HEART 12/17 Unknown History release (Aspir-Low) insulin aspart U-100 100 unit/mL 24 unit subcut TIDCM DIABETES 09/06/17 Unknown History (3 mL) subcutaneous pen (Novolog FlexPen U-100 Insulin aspart) insulin glargine 100 unit/mL (3 35 unit subcut QHS NUNO BETES 09/06/17 Unknown History mL) subcutaneous pen (Lantus Solostar U-100 Insulin) omeprazole 40 mg capsule,delayed 40 mg PO DAILY REFLUX 09/06/17 09/13/17 06:00 History release simvastatin 10 mg tablet (Zocor) 10 mg PO QHS CHOLESTE ROL 09/06/17 Unknown History valsartan 40 mg tablet (Diovan) 40 mg PO BID BP 09/13/17 06:00 History magnesium oxide 400 mg (241.3 mg 400 mg PO DAILY muscl e spasm 10/30/24 Unknown History magnesium) tablet oxybutynin chloride 10 mg 10 mg PO DAILY bladder 10/30 Unknown History tablet,extended release 24 hr Allergy/AdvReac Type Severity Reaction Status Date / Time celecoxib (From Celebrex) Allergy Hives Verified 10/30/24 16:49 ramipril Allergy Hives Verified 10/30/24 16:49 rofecoxib (From Vioxx) Allergy Hives Verified 10/30/24 16:49 letrozole (From Femara) AdvReac Pain in Verified 10/30/24 16:49 joints Social History Smoking Status: Former smoker ROS Constitutional Constitutional: Denies fatigue, fever(s), poor appetite, weight gain or weight loss Gastrointestinal Gastrointestinal: Denies belching, bloating, change in bowel habits, change in stool character, chewing difficulty, coffee ground emesis, constipation, cramping, diarrhea, dyspepsia, dysphagia, early satiety, excessive flatus, fecal incontinence, heartburn, hematemesis, hematochezia, hemorrhoids, loose stools, melena, nausea, odynophagia, rectal bleeding, tenesmus, vomiting or weight changes Physical Exam Const alert, oriented x3, no apparent distress and healthy appearing General Appearance: cooperative GI normal to inspection, nondistended, normoactive bowel sounds, soft to palpation, non-tender and non-distended Percussion: normal to percussion Rectal Exam: deferred Lab / Micro Data 11/01/24 05:27 11/01/24 05:27 Labs: Laboratory Results - last 24 hr 10/31/24 16:41: POC Glucose 162 H 10/31/24 23:01: POC Glucose 186 H 11/01/24 05:27: WBC 5.3, RBC 3.20 L, Hgb 9.3 L, Hct 28.2 L, MCV 88.1, MCH 29.1, MCHC 33.0, RDW Std Deviation 48.8 H, RDW Coeff of Miriam 15.1 H, Plt Count 236, MPV 8.2, Immature Gran % (Auto) 0.200, Neut % (Auto) 52.0, Lymph % (Auto) 37.7, [place] % (Auto) 7.2, Eos % (Auto) 2.5, Baso % (Auto) 0.4, Absolute Neuts (auto) 2.8, Absolute Lymphs (auto) 1.99, Nucleated RBC % 0, Sodium 138, Potassium 4.2, Chloride 107, Carbon Dioxide 20.7 L, Anion Gap 11, BUN 8, Creatinine 0.76, Estim Creat Clear Calc 59.09, Est GFR (MDRD) Non-Af 82, BUN/Creatinine Ratio 10.1, G lucose 183 H, Calcium 8.5, Phosphorus 3.4, Magnesium 1.7 11/01/24 06:35: POC Glucose 177 H Assessment & Plan Assessment/Plan (1) Weakness: (2) Anemia: (3) Acute lower GI bleeding: PLAN: Plan 1 73-year-old with history of colon cancer status postresection with primary anastomosis, breast cancer and history of diverticulosis with hemorrhoids with a acute GI bleed. Differential diagnosis does include diverticular bleeding, anastomotic bleeding, ischemic colitis, hemorrhoidal bleeding. She will undergo colonoscopy. She was explained alternatives, risk and benefits include not withstanding bleeding, fracture, sepsis, perforation, need for return to . She will have an ASA of 3. Charges/Coding Visit Charges Inpatient E&M: 44351 Init Hosp L3
--- NOTE | 2024-11-01 15:19 | OP.COLON_ITS ---
Patient Name: Sarika Matt Procedure Date: 11/01/2024 2:26 PM Date of : 1950 Age: 73 Procedure: Colonoscopy Indications: Hematochezia Providers: Charles Glez DO Medicines: Monitored Anesthesia Care Patient Profile: This is a 73 year old female. Refer to note in patient chart for documentation of history and physical. Last Colonoscopy: within the past 3 years. Complications: No immediate complications. Procedure: Pre-Anesthesia Assessment: - Prior to the procedure, a History and Physical was performed, and patient medications and allergies were reviewed. The patient is competent. The risks and benefits of the procedure and the sedation options and risks were discussed with the patient. All questions were answered and informed consent was obtained. Patient identification and proposed procedure were verified by the physician in the pre-procedure area. Mental Status Examination: alert and oriented. Airway Examination: normal oropharyngeal airway and neck mobility. Respiratory Examination: clear to auscultation. CV Examination: normal. Prophylactic Antibiotics: The patient does not require prophylactic antibiotics. Prior Anticoagulants: The patient has taken no anticoagulant or antiplatelet agents except for NSAID medication. ASA Grade Assessment: II - A patient with mild systemic disease. After reviewing the risks and benefits, the patient was deemed in satisfactory condition to undergo the procedure. The anesthesia plan was to use monitored anesthesia care (MAC). Immediately prior to administration of medications, the patient was re-assessed for adequacy to receive sedatives. The heart rate, respiratory rate, oxygen saturations, blood pressure, adequacy of pulmonary ventilation, and response to care were monitored throughout the procedure. The physical status of the patient was re-assessed after the procedure. After I obtained informed consent, the scope was passed under direct vision. Throughout the procedure, the patient's blood pressure, pulse, and oxygen saturations were monitored continuously. The colonoscope was introduced through the anus and advanced to the cecum, identified by appendiceal orifice and ileocecal valve. The colonoscopy was performed without difficulty. The patient tolerated the procedure well. Scope In: 2:58:19 PM Scope Withdrawal Time 0 hours 7 minutes 7 seconds Scope Out: 3:09:27 PM Total Procedure Duration Time 0 hours 11 minutes 8 seconds Findings: Hemorrhoids were found on perianal exam. A 7 mm polyp was found in the splenic flexure. The polyp was sessile. The polyp was removed with a jumbo cold forceps. Resection and retrieval were complete. Verification of patient identification for the specimen was done. Estimated blood loss was minimal. Two small localized angiodysplastic lesions with bleeding were found in the recto-sigmoid colon. Coagulation for hemostasis using argon plasma at 0.3 liters/minute and 20 carranza was successful. Estimated blood loss was minimal. There was evidence of a prior end-to-end colo-colonic anastomosis in the recto-sigmoid colon. This was patent and was characterized by healthy appearing mucosa. Impression: - Hemorrhoids found on perianal exam. - One 7 mm polyp at the splenic flexure, removed with a jumbo cold forceps. Resected and retrieved. - Two bleeding colonic angiodysplastic lesions. Treated with argon plasma coagulation (APC). - Patent end-to-end colo-colonic anastomosis, characterized by healthy appearing mucosa. Recommendation: - Discharge patient to home. - Repeat colonoscopy in 1 year. - Continue present medications. Procedure Code(s): --- Professional --- 02844, 59, Colonoscopy, flexible; with control of bleeding, any method 50379, Colonoscopy, flexible; with biopsy, single or multiple CPT copyright 2021 [employer]. All rights reserved. The codes documented in this report are preliminary and upon rhic systems safety engineer review may be revised to meet current compliance requirements. Charles Glez DO 11/01/2024 3:19:31 PM This report has been signed electronically. Number of Addenda: 0 Note Initiated On: 11/01/2024 2:26 PM
--- NOTE | 2024-11-01 15:20 | PCM.POST.ANE ---
Anesthesia: Postop Eval I Current Vital Signs Temperature: 97 F Pulse Rate: 71 Blood Pressure: 107/64 Respiratory Rate: 14 Pulse Ox: 93 Oxygen Delivery Method: Room Air Assessment Airway patent: Yes Spontaneous unlabored respirations: Yes Mental status: Awake nausea: No Vomiting: No Anesthesia Complication: No Fluid Hydration Crystalloid volume administer (ml): 10 Total IV fluid infused: 10 Progress Note Anesthesia document: Postop Eval 1 completed: Yes
--- NOTE | 2024-11-01 15:27 | PCM.POST.ANE ---
Anesthesia: Postop Eval I Current Vital Signs Temperature: 97 F Pulse Rate: 72 Blood Pressure: 107/64 Respiratory Rate: 18 Pulse Ox: 94 Oxygen Delivery Method: Room Air Assessment Airway patent: Yes Spontaneous unlabored respirations: Yes Mental status: Asleep nausea: No Vomiting: No Anesthesia Complication: No Fluid Hydration Crystalloid volume administer (ml): 40 Total IV fluid infused: 40 Progress Note Anesthesia document: Postop Eval 1 completed: Yes
--- NOTE | 2024-11-01 15:50 | PCM.POSTANE2 ---
Anesthesia Postop Eval I Sum Postop Eval Completion status Anesthesia document: Postop Eval 1 completed: Yes Anesthesia Postop Eval I Summary Anesthesia Postop Eval I Summary: Anesthesia Postop Eval I: Assessment Summary Airway patent Yes 11/01/24 15:50 Spontaneous unlabored Yes 11/01/24 15:50 respirations Mental status Awake 11/01/24 15:50 nausea No 11/01/24 15:50 Vomiting No 11/01/24 15:50 Anesthesia Postop Eval I: Fluid Summary Crystalloid volume administer 10 11/01/24 15:50 (ml) Colloids volume administered ( ml) Blood Product volume administered (ml) Total IV fluid infused 10 11/01/24 15:50 Anesthesia Postop Eval I: Summary Notes Anesthesia Complication No 11/01/24 15:50 Anesthesia Complication Comment: Post-operative progress note Anesthesia: Postop Eval II Evaluation Mental status: Awake Pain Level: 0 nausea: No Vomiting: No
--- NOTE | 2024-11-01 16:13 | NURSING ---
All documentation by school of nursing director Daphney Zuleta reviewed by clinical nursing coordinator Imani MANNING, RN.
[2024-11-01] MEDS: Insulin Lispro 100 UNIT/ML INSULN.PEN SC ×2 (17:27→20:18)
[2024-11-01 17:48] LABS: Bedside Glucose 154 mg/dL (74-106)
[2024-11-01] MEDS: Atorvastatin Calcium 10 MG Tablet 5 MG PO (20:16)
[2024-11-01] MEDS: Losartan Potassium 25 MG Tablet PO (20:16)
[2024-11-01] MEDS: MELATONIN 3 MG TABLET PO (20:16)
[2024-11-01] MEDS: Insulin Glargine-YFGN 100 UNIT/ML Pen 30 UNIT SC (20:17)
[2024-11-01 20:31] LABS: Bedside Glucose 238 mg/dL (74-106)
[2024-11-02 03:14] VITALS: BP 158/76; PULSE 76; RESP 18; TEMP 36.6; O2SAT 98
[2024-11-02] MEDS: 0.9% Normal Saline (1000mL) 1,000 ML 125 ML IV (05:45)
[2024-11-02 06:27] LABS: Bedside Glucose 144 mg/dL (74-106)
[2024-11-02 08:41] LABS: Absolute Lymphocyte Count 1.89 X10^3/uL (0.83-4.51); Absolute Neutrophil Count 2.4 X10^3/uL (2.0-7.7); Basophil# 0.03 X10^3/uL; Basophil% 0.6 % (0-1); Eosinophil# 0.15 X10^3/uL; Eosinophils% 3.2 % (0-5); Hematocrit 27.3 % (37-47); Hemoglobin 9.1 g/dL (12.0-15.0); Lymphocyte # 1.89 X10^3/ul (0.83-4.51); Lymphocyte % 39.7 % (19-41); Mean Corp Hgb Conc 33.3 g/dL (32-36); Mean Corpuscular Hgb 29.4 pg (27.0-32.0); Mean Corpuscular Volume 88.3 fL (81-99); Mean Platelet Vol. 8.3 fl (6.2-12.0); Monocyte# 0.32 X10^3/uL; Monocyte% 6.7 % (0-10); NRBC Flagged by Analyzer 0 % (0-5); Neutrophil # 2.36 X10^3/uL (2.7-7.7); Neutrophil % 49.6 % (47-70); Platelet Count 225 K/mm3 (150-450); RBC Distribution Width CV 14.9 % (11.6-14.6); RBC Distribution Width SD 47.5 fl (35.1-43.9); Red Blood Count 3.09 M/mm3 (4.2-5.4); White Blood Count 4.8 K/mm3 (4.4-11.0)
[2024-11-02 08:43] VITALS: BP 158/62; PULSE 67; RESP 17; TEMP 36.7; O2SAT 96
[2024-11-02 09:07] LABS: Anion Gap 11 (5-15); BUN 7 mg/dL (4-19); BUN/Creat Ratio 7.7 RATIO (10-20); Calcium,Total 8.8 mg/dL (7.6-11.0); Carbon Dioxide 21.5 mmol/L (21.0-32.0); Chloride 106 mmol/L (98-108); Creatinine, Serum 0.87 mg/dL (0.70-1.20); EST Glomerular Filtration Rate 69 (>60); Estimated Creatinine Clearance 54.33 ml/min (50-250); Glucose 157 mg/dL (70-99); Sodium Level 139 mmol/L (133-145)
[2024-11-02] MEDS: Pantoprazole Sodium 40 MG in 0.9% Normal Saline (100mL MB+) 100 ML 330 MG IV (09:27)
[2024-11-02 09:35] VITALS: O2SAT 90
--- NOTE | 2024-11-02 09:35 | PCM.DC.SUM ---
Providers Date of Admission: 10/30/24 Date of Discharge: 11/02/24 Primary Care Physician: Terrie Blanton, ROSENDO Consultations 10/30/24 22:20 Consult: Gastroenterology Routine Consulting Provider: [facility] Reason for Consult: Lower GI bleed EMERGENT Consult: Yes MD Notified: Yes Date Notified: 10/30/24 Time Notified: 20:50 Method of Notification: ED Physician Initiated Reason For Visit: GI BLEED Diagnosis Discharge Diagnosis (1) Weakness: Status: Acute Code(s): R53.1 - Weakness (2) Anemia: Status: Acute Code(s): D64.9 - Anemia, unspecified (3) Acute lower GI bleeding: Status: Acute Code(s): K92.2 - Gastrointestinal hemorrhage, unspecified Plan Patient is a 73-year-old lady with history of hemorrhoids who presented with bleeding per rectum 1. Acute GI bleed ? CT of the abdomen and pelvis obtained did show mild stool burden within the large bowel no inflammatory changes. Was also found to have umbilical hernia containing fecal loops of transverse colon no inflammatory changes to suggest strangulation. Patient admitted to regular nursing floor managed with IV fluids, bowel rest n.p.o. after midnight with consultation placed to GI. 11/01/2024; patient scheduled to undergo colonoscopy as part of her Evaluation of GI bleed ? 11/02/2024; patient underwent colonoscopy findings are as below - Hemorrhoids found on perianal exam. One 7 mm polyp at the splenic flexure, removed with a jumbo cold forceps. Resected and retrieved. Two bleeding colonic angiodysplastic lesions. Treated with argon plasma coagulation (APC). Patent end-to-end colo-colonic anastomosis, characterized by healthy appearing mucosa. Plan is for patient to undergo repeat colonoscopy in a year per GI 2. Anemia Secondary to acute blood loss anemia from above monitoring H&H with plans to transfuse if patient hemoglobin falls below 7 or patient is deemed to be symptomatic 3. History of colon cancer ? Patient was treated with resection and has remained in remission since 2018 4. History of right breast CVA ? Patient was treated with bilateral mastectomy and chemo 5. Diabetes mellitus type II -patient's oral hypoglycemics held. Placed on long acting insulin, Accu-Cheks a.c. and at bedtime and covered with sliding scale insulin 6. Hypertension ? Blood pressure controlled, home medications continued with dose adjustment as needed 7. Dyslipidemia ?Patient is on statin therapy, continued at home dose 8. Class I obesity with BMI of 34.3 ? Weight loss advised 9. Osteoporosis ? Patient is on alendronate as outpatient plan is to resume on discharge 10. History of recent neck surgery ? On account of cervical spinal stenosis surgery was performed on 23 July 2024. Patient was admitted placed 11. DVT prophylaxis ? Avoided the use of chemoprophylaxis given patient presentation Time spent in the patient's overall evaluation,decision-making process, review of diagnostic data, adjustment of management, discussion with other providers, nursing nursing and ancillary staff involved in patient's care documentation, 38 minutes Medications at Discharge Home Medications alendronate 70 mg tablet (Fosamax) 70 mg PO QWEEK osteoporosis 09/06/17 aspirin 81 mg tablet,delayed release (Aspir-Low) 81 mg PO DAILY HEART 09/06/17 insulin aspart U-100 100 unit/mL (3 mL) subcutaneous pen (Novolog FlexPen U-100 Insulin aspart) 24 unit subcut TIDCM DIABETES 09/06/17 insulin glargine 100 unit/mL (3 mL) subcutaneous pen (Lantus Solostar U-100 Insulin) 35 unit subcut QHS DIABETES 09/06/17 omeprazole 40 mg capsule,delayed release 40 mg PO DAILY REFLUX 09/06/17 simvastatin 10 mg tablet (Zocor) 10 mg PO QHS CHOLESTEROL 09/06/17 valsartan 40 mg tablet (Diovan) 40 mg PO BID BP 09/06/17 magnesium oxide 400 mg (241.3 mg magnesium) tablet 400 mg PO DAILY muscle spasm 10/30/24 oxybutynin chloride 10 mg tablet,extended release 24 hr 10 mg PO DAILY bladder 10/30/24 iron polysaccharide complex-iron heme polypeptide 28 mg tablet 1 tab PO DAILY #60 tabs 11/02/24 Physical Exam Narrative GENERAL: cooperative HEENT: Atraumatic; normocephalic EYES; Anicteric, Normal Conjunctiva NECK; supple, normal thyroid, RESPIRATORY: Diminished to auscultation CARDIOVASCULAR: Regular S1 S2, GI: soft, normoactive bowel sounds, : No Renal angle tenderness; EXTREMITIES: No edema, no clubbing, MUSCULOSKELETAL: no muscle wasting NEURO: Awake; no lateralizing signs. SKIN: No Rash PSYCH; Flat affect Weight / BMI Weight Weight: 82.3 kg Body Mass Index (BMI) 34.2 ABG / Lab / Microbiology Data 11/02/24 07:04 11/02/24 07:04 Laboratory: Laboratory Results - last 24 hr 11/01/24 17:26: POC Glucose 154 H 11/01/24 20:10: POC Glucose 238 H 11/02/24 06:10: POC Glucose 144 H 11/02/24 07:04: WBC 4.8, RBC 3.09 L, Hgb 9.1 L, Hct 27.3 L, MCV 88.3, MCH 29.4, MCHC 33.3, RDW Std Deviation 47.5 H, RDW Coeff of Miriam 14.9 H, Plt Count 225, MPV 8.3, Immature Gran % (Auto) 0.200, Neut % (Auto) 49.6, Lymph % (Auto) 39.7, [place] % (Auto) 6.7, Eos % (Auto) 3.2, Baso % (Auto) 0.6, Absolute Neuts (auto) 2.4, Absolute Lymphs (auto) 1.89, Nucleated RBC % 0, Sodium 139, Potassium 4.0, Chloride 106, Carbon Dioxide 21.5, Anion Gap 11, BUN 7, Creatinine 0.87, Estim Creat Clear Calc 54.33, Est GFR (MDRD) Non-Af 69, BUN/Creatinine Ratio 7.7 L, Glucose 157 H, Calcium 8.8 Microbiology: Microbiology 10/30/24 17:21 Stool Stool Occult Blood (MONY) - Final Occult Blood Positive D/C Instructions Discharge Diet: No restrictions Discharge Activity: Return to Normal Activity Call your doctor if you observe: Fever of 101 or Higher, Shortness of breath, Fainting spells and Chest pain DC O2, CPAP, BIPAP Needs Home O2 Discharge instructions: No Meaningful Use Info Meaningful Use Meaningful Use Diagnoses (Choose all that apply): None applicable Ischemic Stroke Statin Dosing Therapy Reference: STATIN DOSE THERAPY REFERENCE: * Patients > 75 years receive moderate or high dose statin therapy. * Patients 75 years or YOUNGER should receive HIGH intensity statin dose unless contraindicated. You will be required to document reason for non-treatment if statin daily dose does not meet guidelines. HIGH DOSE STATIN THERAPY DAILY Atorvastatin > than or = to 40 mg Rosuvastatin > than or = to 20 mg Amlodipine + Atorvastatin > than or = to 2.5/40 mg Ezetimibe + Simvastatin 10/80 mg Simvastatin 80mg Discharge Plan Admission Admit Date/Time: 10/30/24 20:46 Attending Provider: Sushant Olmedo Primary Care Provider: Terrie Blanton Consulting Providers: Joe Chance Discharge Orders/Prescriptions Prescriptions: New iron polysac-iron heme polypep 28 mg tablet 1 tab PO DAILY Qty: 60 0RF Continued alendronate [Fosamax] 70 MG tablet 70 mg PO QWEEK simvastatin [Zocor] 10 MG tablet 10 mg PO QHS omeprazole 40 MG capsule,delayed release(DR/EC) 40 mg PO DAILY aspirin [Aspir-Low] 81 MG tablet,delayed release (DR/EC) 81 mg PO DAILY Patient Comments: WAS TOLD TO STOP 3 DAYS BEFORE valsartan [Diovan] 40 MG tablet 40 mg PO BID insulin aspart U-100 [Novolog FlexPen U-100 Insulin] 100 UNITS/ML insulin pen 24 unit subcut TIDCM insulin glargine [Lantus Solostar U-100 Insulin] 100 UNITS/ML insulin pen 35 unit subcut QHS oxybutynin chloride 10 mg tablet extended release 24hr 10 mg PO DAILY magnesium oxide 400 mg (241.3 mg magnesium) tablet 400 mg PO DAILY Referrals / Follow Up: Adonis Alvarado MD [Non-Staff] - Within 2 Weeks Charles Glez DO [Med Staff - Active Staff] - Within 2 Weeks Terrie Blanton, [employer] [Primary Care Provider] - Disposition Disposition (needs filled in before D/C Order can be placed): Home, Self Care Charges/Coding Visit Charges Inpatient E&M: 49178 Disch Hosp >30min
[2024-11-02] MEDS: Tolterodine Tartrate 4 MG CAP.SA PO (09:59)
[2024-11-02] MEDS: Losartan Potassium 25 MG Tablet PO (09:59)
--- NOTE | 2024-11-02 10:28 | CASEMGMT ---
Pt has an order for DC placed. EDMUND CM to pt room at this time. Pt up in the room independently returning from the bathroom. Pt states that her GS still plans to stay with her and the pt denies any discharge needs. Pt states that she feels safe with this plan and denies any further concerns at this time.
[2024-11-02 12:00] LABS: Bedside Glucose 260 mg/dL (74-106)
[2024-11-02 12:58] VITALS: BP 180/80; PULSE 90; RESP 17; TEMP 36.7; O2SAT 97
== END 2024-11-02 12:35 | disposition home or self-care (01) | DRG 378 ==
LOC: ED 20:34 → MS3 21:13
PROVIDERS: Anesthesiology; Internal Medicine Gastroenterology; Admitting Provider Family Medicine; Emergency Provider Emergency Medicine; PCP Registered Nurse; Referring Provider Emergency Medicine; Visit Provider Internal Medicine
PROC: 0DJD8ZZ Inspection of Lower Intestinal Tract, Via Natural or Artificial Opening Endoscopic (ICD-10-PCS; CPT 45378; principal; 2024-11-01 13:25)
DX: K55.21 Angiodysplasia of colon with hemorrhage (principal); D62 Acute posthemorrhagic anemia; Z66 Do not resuscitate; E11.65 Type 2 diabetes mellitus with hyperglycemia; I10 Essential (primary) hypertension; E66.811 Obesity, class 1; D12.2 Benign neoplasm of ascending colon; E78.5 Hyperlipidemia, unspecified; K42.9 Umbilical hernia without obstruction or gangrene; K63.5 Polyp of colon; K21.9 Gastro-esophageal reflux disease without esophagitis; K64.9 Unspecified hemorrhoids; Z79.4 Long term (current) use of insulin; R53.1 Weakness; Z79.83 Long term (current) use of bisphosphonates; Z86.73 Personal history of transient ischemic attack (TIA), and cerebral infarction without residual deficits; M81.0 Age-related osteoporosis without current pathological fracture; Z68.34 Body mass index [BMI] 34.0-34.9, adult; R10.32 Left lower quadrant pain; Z90.49 Acquired absence of other specified parts of digestive tract; Z85.038 Personal history of other malignant neoplasm of large intestine; Z88.8 Allergy status to other drugs, medicaments and biological substances; Z79.899 Other long term (current) drug therapy; Z79.02 Long term (current) use of antithrombotics/antiplatelets; Z79.82 Long term (current) use of aspirin; Z87.891 Personal history of nicotine dependence; Z98.0 Intestinal bypass and anastomosis status
CPT/HCPCS: 36415; 74177; 80048; 80053; 81001; 82274; 82962; 83036; 83605; 83735; 84100; 85014; 85018; 85025; 85610; 85730; 88305; 93005; 99284; C1889; Q9967; J2405

== ENCOUNTER → 2024-11-16 | Outpatient (CLI) | payer MEDICARE, OTHER, SELFPAY ==
[2024-11-16 11:37] LABS: Absolute Lymphocyte Count 1.95 X10^3/uL (0.83-4.51); Absolute Neutrophil Count 3.5 X10^3/uL (2.0-7.7); Basophil# 0.05 X10^3/uL; Basophil% 0.8 % (0-1); Eosinophil# 0.12 X10^3/uL; Hematocrit 29.8 % (37-47); Hemoglobin 9.8 g/dL (12.0-15.0); Lymphocyte # 1.95 X10^3/ul (0.83-4.51); Lymphocyte % 31.9 % (19-41); Mean Corp Hgb Conc 32.9 g/dL (32-36); Mean Corpuscular Hgb 28.7 pg (27.0-32.0); Mean Corpuscular Volume 87.4 fL (81-99); Mean Platelet Vol. 8.3 fl (6.2-12.0); Monocyte# 0.45 X10^3/uL; Monocyte% 7.4 % (0-10); NRBC Flagged by Analyzer 0 % (0-5); Neutrophil # 3.52 X10^3/uL (2.7-7.7); Neutrophil % 57.6 % (47-70); Platelet Count 348 K/mm3 (150-450); RBC Distribution Width CV 14.9 % (11.6-14.6); RBC Distribution Width SD 47.6 fl (35.1-43.9); Red Blood Count 3.41 M/mm3 (4.2-5.4); White Blood Count 6.1 K/mm3 (4.4-11.0)
[2024-11-16 12:10] LABS: Iron 44 ug/dL (50-170); Iron Binding Capacity,Unsat 421 ug/dL (228-428)
[2024-11-16 12:18] LABS: Iron Binding Capacity,Total 465 ug/dL (250-450)
== END | disposition home or self-care (01) ==
PROVIDERS: PCP Registered Nurse; Referring Provider Nurse Practitioner Acute Care; Visit Provider Nurse Practitioner Acute Care
DX: D64.9 Anemia, unspecified (principal)
CPT/HCPCS: 36415; 83540; 83550; 85025

== ENCOUNTER 2024-11-20 18:17 | Inpatient (IN) | payer MEDICARE, OTHER, SELFPAY ==
[2024-11-20] VITALS (16 sets, daily range): BP systolic 118–148; BP diastolic 52–72; PULSE 86–99; RESP 12–25; TEMP 36.6–37.8; O2SAT 88–100; BMI 35.2; BMI 35.0
--- NOTE | 2024-11-20 18:25 | EDS_ITS ---
HPI History of Present Illness Chief Complaint: General Illness [facility] Medical History (Updated 11/20/24 @ 18:26 by Marjorie Aguayo) Decompression injury of spinal cord Skin cancer Kidney stones Hypoglycemia Blood transfusion during current hospitalisation UTI (urinary tract infection) Bone fracture Breast cancer Colorectal cancer Cancer Depression Diabetes Kidney disease GERD (gastroesophageal reflux disease) Former smoker Atrial fibrillation Hypertension Home Medications ?Medication ?Instructions ?Recorded ?Last Taken ?Type aspirin 81 mg tablet,delayed 81 mg PO DAILY HEART 12/17 Unknown History release (Aspir-Low) insulin aspart U-100 100 unit/mL 24 unit subcut TIDCM DIABETES 09/06/17 Unknown History (3 mL) subcutaneous pen (Novolog FlexPen U-100 Insulin aspart) insulin glargine 100 unit/mL (3 35 unit subcut QHS NUNO BETES 09/06/17 Unknown History mL) subcutaneous pen (Lantus Solostar U-100 Insulin) omeprazole 40 mg capsule,delayed 40 mg PO DAILY REFLUX 09/06/17 09/13/17 06:00 History release simvastatin 10 mg tablet (Zocor) 10 mg PO QHS CHOLESTE ROL 09/06/17 Unknown History valsartan 40 mg tablet (Diovan) 40 mg PO BID BP 09/13/17 06:00 History magnesium oxide 400 mg (241.3 mg 400 mg PO DAILY muscl e spasm 10/30/24 Unknown History magnesium) tablet iron polysaccharide complex-iron 1 tab PO DAILY #60 ta bs 11/02/24 Unknown Rx heme polypeptide 28 mg tablet alendronate 70 mg tablet (Fosamax) 70 mg PO .QOWK oste oporosis 11/16/24 Unknown History linaclotide 145 mcg capsule 145 mcg PO QAM #90 caps Unknown Rx (Linzess) methocarbamol 750 mg tablet 750 mg PO TID PRN muscle s pasms 11/16/24 Unknown History duloxetine 30 mg capsule,delayed 30 mg PO DAILY Unknown History release Held on 11/20/24. Instructions: pt doesnt want to take bc it will make me a zombie furosemide 20 mg tablet 20 mg PO DAILY PRN swelling 11/20/24 Unknown History mirabegron 25 mg tablet,extended 25 mg PO DAILY Unknown History release 24 hr (Myrbetriq) pen needle, diabetic 32 gauge x 11/20/24 Unknown Hist ory (BD Luz Elena 2nd Gen Pen Needle) sennosides 8.6 mg-docusate sodium 2 tab PO DAILY 11/20 Unknown History 50 mg tablet (Senexon-S) Allergy/AdvReac Type Severity Reaction Status Date / Time celecoxib (From Celebrex) Allergy Hives Verified 11/20/24 18:20 ramipril Allergy Hives Verified 11/20/24 18:20 rofecoxib (From Vioxx) Allergy Hives Verified 11/20/24 18:20 letrozole (From Femara) AdvReac Pain in Verified 11/20/24 18:20 joints Family History (Updated 11/16/24 @ 10:37 by Lissa Guy) Father CVA (cerebral vascular accident), Onset Age: 39 Sister Breast cancer Diabetes Mother Thyroid disorder Brother Arthritis Colon cancer Diabetes Mental disorder Psychiatric care CVA (cerebral vascular accident) Social History Smoking Status: Former smoker alcohol intake: current details: wine substance use type: does not use EXAM Physical Exam Const Vital Signs: 11/20/24 18:19 11/20/24 18:24 11/20/24 18:25 Temperature 100.1 F H 100.1 F H Temperature Source Oral Oral Pulse Rate 99 96 Respiratory Rate 12 12 Respiratory Effort Normal Respiratory Pattern Normal Blood Pressure 148/59 H 148/59 H Blood Pressure Mean 88 88 Pulse Ox 96 96 Oxygen Delivery Method Room Air Room Air Oxygen Flow Rate (L/min) 11/20/24 19:24 11/20/24 19:30 11/20/24 19:35 Temperature 99 F Temperature Source Oral
--- NOTE | 2024-11-20 18:25 | EX.ED.DYSGE1 ---
HPI History of Present Illness Chief Complaint: General Illness [facility] Medical History (Updated 11/20/24 @ 18:26 by Marjorie Aguayo) Decompression injury of spinal cord Skin cancer Kidney stones Hypoglycemia Blood transfusion during current hospitalisation UTI (urinary tract infection) Bone fracture Breast cancer Colorectal cancer Cancer Depression Diabetes Kidney disease GERD (gastroesophageal reflux disease) Former smoker Atrial fibrillation Hypertension Home Medications ?Medication ?Instructions ?Recorded ?Last Taken ?Type aspirin 81 mg tablet,delayed 81 mg PO DAILY HEART 09/06/17 Unknown History release (Aspir-Low) insulin aspart U-100 100 unit/mL 24 unit subcut TIDCM DIABETES 09/06/17 Unknown History (3 mL) subcutaneous pen (Novolog FlexPen U-100 Insulin aspart) insulin glargine 100 unit/mL (3 35 unit subcut QHS DIABETES 09/06/17 Unknown History mL) subcutaneous pen (Lantus Solostar U-100 Insulin) omeprazole 40 mg capsule,delayed 40 mg PO DAILY REFLUX 09/06/17 09/13/17 06:00 History release simvastatin 10 mg tablet (Zocor) 10 mg PO QHS CHOLESTEROL 09/06/17 Unknown History valsartan 40 mg tablet (Diovan) 40 mg PO BID BP 09/06/17 09/13/17 06:00 History magnesium oxide 400 mg (241.3 mg 400 mg PO DAILY muscle spasm 10/30/24 Unknown History magnesium) tablet iron polysaccharide complex-iron 1 tab PO DAILY #60 tabs 11/02/24 Unknown Rx heme polypeptide 28 mg tablet alendronate 70 mg tablet (Fosamax) 70 mg PO .QOWK osteoporosis 11/16/24 Unknown History linaclotide 145 mcg capsule 145 mcg PO QAM #90 caps 11/16/24 Unknown Rx (Linzess) methocarbamol 750 mg tablet 750 mg PO TID PRN muscle spasms 11/16/24 Unknown History duloxetine 30 mg capsule,delayed 30 mg PO DAILY 11/20/24 Unknown History release Held on 11/20/24. Instructions: pt doesnt want to take bc it will make me a zombie furosemide 20 mg tablet 20 mg PO DAILY PRN swelling 11/20/24 Unknown History mirabegron 25 mg tablet,extended 25 mg PO DAILY 11/20/24 Unknown History release 24 hr (Myrbetriq) pen needle, diabetic 32 gauge x 11/20/24 Unknown History (BD Luz Elena 2nd Gen Pen Needle) sennosides 8.6 mg-docusate sodium 2 tab PO DAILY 11/20/24 Unknown History 50 mg tablet (Senexon-S) Allergy/AdvReac Type Severity Reaction Status Date / Time celecoxib (From Celebrex) Allergy Hives Verified 11/20/24 18:20 ramipril Allergy Hives Verified 11/20/24 18:20 rofecoxib (From Vioxx) Allergy Hives Verified 11/20/24 18:20 letrozole (From Femara) AdvReac Pain in Verified 11/20/24 18:20 joints Family History (Updated 11/16/24 @ 10:37 by Lissa Guy) Father CVA (cerebral vascular accident), Onset Age: 39 Sister Breast cancer Diabetes Mother Thyroid disorder Brother Arthritis Colon cancer Diabetes Mental disorder Psychiatric care CVA (cerebral vascular accident) Social History Smoking Status: Former smoker alcohol intake: current details: wine substance use type: does not use EXAM Physical Exam Const Vital Signs: 11/20/24 18:19 11/20/24 18:24 11/20/24 18:25 Temperature 100.1 F H 100.1 F H Temperature Source Oral Oral Pulse Rate 99 96 Respiratory Rate 12 12 Respiratory Effort Normal Respiratory Pattern Normal Blood Pressure 148/59 H 148/59 H Blood Pressure Mean 88 88 Pulse Ox 96 96 Oxygen Delivery Method Room Air Room Air Oxygen Flow Rate (L/min) 11/20/24 19:24 11/20/24 19:30 11/20/24 19:35 Temperature 99 F Temperature Source Oral Pulse Rate 93 Respiratory Rate 18 Respiratory Effort Respiratory Pattern Blood Pressure 126/55 H 146/72 H Blood Pressure Mean 78 90 Pulse Ox 97 93 Oxygen Delivery Method Room Air Oxygen Flow Rate (L/min) 11/20/24 19:45 11/20/24 20:00 11/20/24 20:05 Temperature Temperature Source Pulse Rate 95 97 96 Respiratory Rate 16 17 Respiratory Effort Respiratory Pattern Blood Pressure 126/55 H Blood Pressure Mean 76 Pulse Ox 97 89 96 Oxygen Delivery Method Oxygen Flow Rate (L/min) 11/20/24 20:19 11/20/24 20:30 11/20/24 21:00 Temperature 98.3 F Temperature Source Oral Pulse Rate 94 94 Respiratory Rate 15 25 H Respiratory Effort Respiratory Pattern Blood Pressure 120/52 L 123/54 H Blood Pressure Mean 72 77 Pulse Ox 95 95 94 Oxygen Delivery Method Room Air Oxygen Flow Rate (L/min) 11/20/24 21:21 11/20/24 21:21 11/20/24 21:46 Temperature 98.7 F Temperature Source Pulse Rate 91 Respiratory Rate 20 H 20 H 17 Respiratory Effort Respiratory Pattern Blood Pressure 121/59 H Blood Pressure Mean 79 Pulse Ox 88 93 97 Oxygen Delivery Method Room Air Nasal Cannula Oxygen Flow Rate (L/min) 2 MDM MDM MDM Narrative Medical decision making narrative: HISTORY OF PRESENT ILLNESS: Chief complaint: General illness 74-year-old female history of type 2 diabetes, UTI, anemia, GERD, A-fib, colorectal cancer, breast cancer presents with not feeling well. States she has got pain in bilateral calves. States she fell down yesterday after missing her walker. States she feels weak all over. Patient cannot detail of the event trauma fall and if she injured herself. REVIEW OF SYSTEMS: Pertinent positives: Diffuse weakness, bilateral leg pain, Pertinent negatives: Focal weakness, syncope, chest pain PHYSICAL EXAM: Nursing triage notes reviewed, Vital signs reviewed Constitutional: please see mdm HENT: MMM, atraumatic, normocephalic, no nasal hematoma, no intraoral lesions, no jaw malocclusion, no hemotympanum Eyes: Pupils equal round and reactive to light, Extraocular muscles intact Neck: No stridor, no JVD, full neck ROM, c-collar in place, no obvious above deformities to the cervical spine Lungs: Clear to auscultation, No wheezing or rales. No increased work of breathing, no conversational dyspnea, no accessory muscle use, no nasal flaring. No respiratory distress noted, no flail chest Heart: Regular rate and rhythm, No murmurs, No rubs and No gallops, 2+ distal pulses (radial, femoral, posterior tibial) in all extremities Abdomen: Soft, there is no tenderness, rigidity, rebound or guarding, no obvious peritoneal signs, no palpable pulsatile abdominal masses, no auscultated abdominal bruit : No CVAT, pelvis stable to compression Extremities: No edema, full range of motion all extremities, no obvious deformities, no TTP over upper or lower extremity joints. Neuro: No new focal neurological deficits, cranial nerves II through XII intact, 5/5 strength in all present extremities. Intact sensation to light touch in all present extremities, 2+ reflexes bilateral patella tendons. Skin: No rash or lesions noted MEDICAL DECISION MAKING: Chief Complaint: please see HPI External records reviewed: Reviewed prior imaging studies. Reviewed prior discharge note. Patient was recently admitted from October 30, 2024 until November 02, 2024 for lower GI bleed, weakness and anemia hyperlipidemia, Factors affecting care as per HPI Social determinants of health: Elderly History obtained from others: daughter Consults: internal medicine (Dr. Atkins) discussed admission to [facility]. MDM Narrative: The patient was initially febrile with a temperature 100.1, saturating 96% room air. Exam infectionwithout focus of traumatic injury, no focus of infection. Patient was diffusely weak having difficulty raising legs symmetrically. Having difficulty syncope in bed. I considered the following differential diagnosis: Infectious encephalopathy, ICH, traumatic injury to cervical spine, abnormalities infectious etiologies abdomen pelvis, UTI, viral illness, I obtained a broad lab and imaging workup to further elucidate etiology of patient's complaints including CT scan of the head, cervical spine abdomen pelvis as well as chest x-ray. I obtained a broad lab workup as well. Initially treat the patient with 1 L IV fluid and Tylenol for fever. ALL IMAGES (IF OBTAINED) HAVE BEEN PERSONALLY REVIEWED AND INTERPRETED BY MYSELF. CBC with no leukocytosis, noted anemia (improved from prior), no thrombocytopenia Lactate is wnl indicating no end-organ hypoperfusion and/or hypoxia. EKG normal sinus rhythm rate of 92, normal axis, no intervals, no STEMI I have personally reviewed the patient's chest x-ray. Chest x-ray is unremarkable for pulmonary edema, pneumothorax, pneumonia or focal cardiopulmonary abnormality. CT scan of the head, cervical spine, abdomen pelvis shows no evidence of obvious traumatic injury or infectious etiology. CT scan of the abdomen pelvis did show some signs of possible pulmonary infiltration. Given the patient ED course nursing did note patient came hypoxic 88% while she was falling asleep. They started on 2 L of oxygen which resulted in improvement in her oxygen levels. The synthesis of the patient's history, physical exam, labs images suggest possible pneumonia as a source of infection and diffuse weakness. Given the patient's difficulty ambulating, diffuse weakness, noted hypoxia to 88% with sleeping and sign of potential pneumonia with fever will admit the patient to the hospital given her high risk of significant decompensation and likelihood that she would not do well at home. The patient and/or family, caregivers express understanding. The patient and/or family, caregivers agrees with the plan. Shared decision making: I will have a discussion with the patient and or visitors regarding risk/benefits of further testing or admission. They will be made aware of of the risk/benefits inherent in this decision they will be given the opportunity to voice understanding. Total critical care time today provided was at least 0 minutes. This excludes separately billable procedures. Critical care time (if documented) is secondary to the patient having high probability of clinically significant/life threatening deterioration in the patient's condition which required my urgent intervention. Impression: 1. Diffuse weakness 2. Fever 3. Community acquired pneumonia 4. Hypoxia Dispo: Admit to [facility] This note was generated with [employer] dictation software. It may contain incorrect words, spelling, and punctuation that were not noted in review of the chart prior to signing. Lab Data Labs: Laboratory Results - last 24 hr 11/20/24 11/20/24 11/20/24 18:30 19:00 20:20 WBC 5.8 RBC 3.50 L Hgb 10.0 L Hct 29.8 L MCV 85.1 MCH 28.6 MCHC 33.6 RDW Std Deviation 46.7 H RDW Coeff of Miriam 15.2 H Plt Count 303 MPV 8.3 Immature Gran % (Auto) 0.500 Neut % (Auto) 83.4 H Lymph % (Auto) 11.1 L Preston % (Auto) 3.6 Eos % (Auto) 1.2 Baso % (Auto) 0.2 Absolute Neuts (auto) 4.8 Absolute Lymphs (auto) 0.64 L Nucleated RBC % 0 Sodium 134 Potassium 4.2 Chloride 98 Carbon Dioxide 22.8 Anion Gap 14 BUN 15 Creatinine 0.98 Estim Creat Clear Calc 48.17 L Est GFR (MDRD) Non-Af 60 BUN/Creatinine Ratio 15.2 Glucose 48 L Lactic Acid 1.4 Calcium 9.3 Magnesium 1.6 Total Bilirubin 0.39 AST 42 H ALT 28 Alkaline Phosphatase 67 Total Protein 7.1 Albumin 3.6 Globulin 3.5 Albumin/Globulin Ratio 1.0 Urine Color Yellow Urine Clarity Clear Urine pH 6.5 Ur Specific [place] 1.010 Urine Protein 30 H Urine Glucose (UA) Normal Urine Ketones Negative Urine Occult Blood 50 H Urine Nitrite Negative Urine Bilirubin Negative Urine Urobilinogen Normal Ur Leukocyte Esterase Negative Urine RBC 0-5 SEEN Urine WBC 0-5 SEEN Ur Squamous Epith Cells 0-5 SEEN Urine Bacteria 0 SEEN Urine Mucus 0 SEEN Radiography Diagnostic Testing: Clinical Impression(s) from Imaging Studies Venous Duplex 11/20/24 18:49 IMPRESSION: 1. No evidence of acute or chronic deep vein thrombosis in the right lower extremity. 2. No evidence of acute or chronic deep vein thrombosis in the left lower extremity. 3. No evidence of thrombophlebitis. Reading Location: [facility] Chest X-Ray 11/20/24 19:14 IMPRESSION: No active cardiopulmonary disease these. Reading Location: [facility] Abdomen/Pelvis CT 11/20/24 19:15 IMPRESSION: Areas of nonspecific ground-glass opacification in the lower lobes. Can not exclude mild inflammation. Coronary artery calcifications. Small left adrenal gland nodule most likely adenoma. Small pocket of air along the anterior wall of the urinary bladder most likely iatrogenic. Status post colorectal resection and reanastomosis. Anterior wall umbilical hernia. Other nonacute findings detailed above. Reading Location: [facility] Brain CT 11/20/24 19:15 IMPRESSION: NORMAL NONCONTRAST HEAD CT. Reading Location: [id number] Cervical Spine CT 11/20/24 19:15 IMPRESSION: No acute fracture or subluxation. Postsurgical changes and degenerative disc disease as described above. Reading Location: [id number] Discharge Plan Triage Chief Complaint: General Illness ED Provider: Bartolome Castillo Dx/Rx/DC Orders Primary Care Provider: Terrie Blanton
--- NOTE | 2024-11-20 18:43 | EKG12_ITS ---
Test Reason : gen ill Blood Pressure : */* mmHG Vent. Rate : 92 BPM Atrial Rate : 92 BPM P-R Int : 150 ms QRS Dur : 76 ms QT Int : 362 ms P-R-T Axes : 71 46 56 degrees QTcB Int : 447 ms Normal sinus rhythm Normal ECG Confirmed by ZORA ARCHER, ERICK ([id number]), editor trade journal VEDA GANDHI ([id number]) on 11/22/2024 8:20:37 AM Referred By: Bartolome Castillo Confirmed By: ERICK BLAKELY MD
--- NOTE | 2024-11-20 18:49 | US_ITS ---
PROCEDURE: VENOUS DUPLEX IMAGING/BILATERAL EXTREMITY 11/20/2024 REASON FOR EXAM: BILATERAL LEG PAIN. TECHNIQUE: Bilateral Grayscale color flow and doppler analysis of the bilateral lower extremities. COMPARISON: No relevant prior. FINDINGS: Thrombus: No evidence of acute or chronic deep vein thrombus in the bilateral lower extremities. Compression and augmentation: Unremarkable. Blood flow: Normal phasicity. Varicosities: Nonvisualized. Superficial veins: Unremarkable. US/Venous Duplex Imag/Tramaine Extrem IMPRESSION: 1. No evidence of acute or chronic deep vein thrombosis in the right lower ext remity. 2. No evidence of acute or chronic deep vein thrombosis in the left lower extr emity. 3. No evidence of thrombophlebitis. Reading Location: [facility]
[2024-11-20] MEDS: Acetaminophen 325 MG Tablet 650 MG PO (18:54)
[2024-11-20] MEDS: 0.9% Normal Saline (500mL Bag) 500 ML 1000 ML IV (19:00)
--- NOTE | 2024-11-20 19:14 | RAD_ITS ---
PROCEDURE: CHEST 1 VIEW (PORTABLE) 11/20/2024 REASON FOR EXAM: FEVER TECHNIQUE: Frontal view of the chest. COMPARISON: No relevant prior. FINDINGS: Lungs: Lungs clear of pneumonia and congestion. Pleura: No pleural effusions, thickening, or pneumothorax. Heart: Normal in size and configuration. Mediastinum/Bhakti: Unremarkable. Great vessels: Unremarkable. Bones/soft tissues: Status post cervical fusion with surgical instrumentation. RAD/Chest 1 View (Portable) IMPRESSION: No active cardiopulmonary disease these. Reading Location: [facility]
--- NOTE | 2024-11-20 19:15 | CT_ITS ---
PROCEDURE: ABDOMEN/PELVIS WITHOUT CONT 11/20/2024 REASON FOR EXAM: FEVER, HX OF COLORECTAL CANCER TECHNIQUE: Contiguous axial scans of 2.5 mm slice thicknesses. Sagittal and coronal reconstruction images were obtained. One or more dose reduction techniques were used (e.g., automated exposure control, adjustment of mA and/or kv according to patient size, use of iterative reconstruction technique). PATIENT PREPARATION: Per protocol ORAL CONTRAST TYPE: None.. IV CONTRAST: NONE GIVEN. COMPARISON: 10/30/2024. FINDINGS: Lung bases: Areas of ground-glass opacification in the lower lobes. Coronary artery calcifications. Liver: Normal in size. No masses are identified. Normal attenuation. Gallbladder: Unremarkable. Spleen: Unremarkable except for calcified granuloma. Pancreas: Unremarkable. Adrenals: 1.3 cm left adrenal nodule, axial image 62. Kidneys: Normal in size. No calcifications. No masses. Bladder: Small pocket of air along the anterior bladder wall. Reproductive Organs: Unremarkable uterus. Bowel: Unremarkable. Findings related colorectal resection and reanastomosis, patent. Appendix: Unremarkable. Lymph nodes: No suspicious lymphadenopathy. Vasculature: Phleboliths scattered throughout the pelvis. Mild atherosclerotic calcific disease. Suspicion of small calcified splenic artery aneurysm, axial image 66. Peritoneum / Retroperitoneum: No masses. No free air. No free fluid. Anterior abdominal wall: Umbilical hernia containing transverse colon no signs of strangulation. Areas of soft tissue stranding in the anterior abdominal wall. Bones: Multilevel spondylosis. Degenerative disc disease at L4-5. CT/Abdomen/Pelvis without Cont IMPRESSION: Areas of nonspecific ground-glass opacification in the lower lobes. Can not ex clude mild inflammation. Coronary artery calcifications. Small left adrenal gland nodule most likely adenoma. Small pocket of air along the anterior wall of the urinary bladder most likely iatrogenic. Status post colorectal resection and reanastomosis. Anterior wall umbilical hernia. Other nonacute findings detailed above. Reading Location: [facility]
--- NOTE | 2024-11-20 19:15 | CT_ITS ---
PROCEDURE: SPINE CERVICAL WITHOUT CONTRAS 11/20/2024 REASON FOR EXAM: NECK PAIN TECHNIQUE: Cervical spine CT without contrast. Coronal and Sagittal reconstruction series were provided. One or more dose reduction techniques were used (e.g., Automated exposure control, adjustment of the mA and/or kV according to patient size, use of iterative reconstruction technique FINDINGS: Alignment: 2 mm of anterolisthesis of C3 on C4. Straightening of the normal lordotic curvature. Vertebrae: No acute fracture lines. Status post posterior decompression and fixation from C4 through T1. Unremarkable. Soft Tissues: Unremarkable. Other: C1-2: Degenerative changes of the anterior atlanto dental joint. C2-3: Mild left facet hypertrophy with ankylosis of the facet joint. No spinal stenosis or neural foraminal stenosis. C3-4: Mild bilateral facet hypertrophy. 2 mm of anterolisthesis of C3 on C4 with a mild broad disc protrusion produces mild spinal stenosis. C4-5: Status post posterior decompression and fixation with anatomic alignment no spinal stenosis or neural foraminal stenosis. C5-6: Status post posterior decompression and fixation with anatomic alignment with no spinal stenosis or neural foraminal stenosis. C6-7: Status post posterior decompression and fixation with anatomic alignment with no spinal stenosis or neural foraminal stenosis. C7-T1: CT/Spine Cervical without Contras IMPRESSION: No acute fracture or subluxation. Postsurgical changes and degenerative disc disease as described above. Reading Location: [id number]
--- NOTE | 2024-11-20 19:15 | CT_ITS ---
PROCEDURE: BRAIN/HEAD WITHOUT CONTRAST 11/20/2024 REASON FOR EXAM: FALL, HEAD TRAUMA TECHNIQUE: Head CT without intravenous contrast. Coronal and Sagittal reconstruction series were provided. One or more dose reduction techniques were used (e.g., Automated exposure control, adjustment of the mA and/or kV according to patient size, use of iterative reconstruction technique. FINDINGS: Brain: Normal CSF Spaces: Normal Sinuses/Mastoids: Clear at visualized levels Bones: Unremarkable. CT/Brain/Head without Contrast IMPRESSION: NORMAL NONCONTRAST HEAD CT. Reading Location: [id number]
[2024-11-20 19:33] LABS: Lactic Acid 1.4 mmol/L (0.0-2.0)
[2024-11-20 20:24] LABS: Absolute Lymphocyte Count 0.64 X10^3/uL (0.83-4.51); Absolute Neutrophil Count 4.8 X10^3/uL (2.0-7.7); Basophil# 0.01 X10^3/uL; Basophil% 0.2 % (0-1); Eosinophil# 0.07 X10^3/uL; Eosinophils% 1.2 % (0-5); Hematocrit 29.8 % (37-47); Lymphocyte # 0.64 X10^3/ul (0.83-4.51); Lymphocyte % 11.1 % (19-41); Mean Corp Hgb Conc 33.6 g/dL (32-36); Mean Corpuscular Hgb 28.6 pg (27.0-32.0); Mean Corpuscular Volume 85.1 fL (81-99); Mean Platelet Vol. 8.3 fl (6.2-12.0); Monocyte# 0.21 X10^3/uL; Monocyte% 3.6 % (0-10); NRBC Flagged by Analyzer 0 % (0-5); Neutrophil # 4.83 X10^3/uL (2.7-7.7); Neutrophil % 83.4 % (47-70); Platelet Count 303 K/mm3 (150-450); RBC Distribution Width CV 15.2 % (11.6-14.6); RBC Distribution Width SD 46.7 fl (35.1-43.9); White Blood Count 5.8 K/mm3 (4.4-11.0)
[2024-11-20 20:27] LABS: Bacteria 0 SEEN /hpf (None Seen); Mucous, Urine 0 SEEN /hpf (<or=2+)
[2024-11-20 20:54] LABS: AST(SGOT) 42 U/L (<=31); Alanine Aminotransfer ALT/SGPT 28 U/L (<=34); Albumin, Serum 3.6 g/dL (3.4-4.8); Alkaline Phosphatase 67 U/L (35-104); Anion Gap 14 (5-15); BUN 15 mg/dL (4-19); BUN/Creat Ratio 15.2 RATIO (10-20); Calcium,Total 9.3 mg/dL (7.6-11.0); Carbon Dioxide 22.8 mmol/L (21.0-32.0); Chloride 98 mmol/L (98-108); Creatinine, Serum 0.98 mg/dL (0.70-1.20); EST Glomerular Filtration Rate 60 (>60); Estimated Creatinine Clearance 48.17 ml/min (50-250); Globulin 3.5 g/dL (2.2-4.2); Glucose 48 mg/dL (70-99); Potassium 4.2 mmol/L (3.3-5.1); Protein, Total 7.1 g/dL (5.9-8.4); Sodium Level 134 mmol/L (133-145); Total Bilirubin 0.39 mg/dL (0.00-1.30)
[2024-11-20 21:03] LABS: Color, Urine Yellow (Yellow); Glucose, Dipstick Normal (Normal); Ketone-Dipstick Negative (Negative); Leukocyte Esterase-Dipstick Negative /ul (Negative); Nitrite-Dipstick Negative (Negative); Occult Blood-Urine 50 /ul (Negative); Protein-Dipstick 30 mg/dl (Negative); Urine Bilirubin Dipstick Negative (Negative); Urine Clarity Clear (Clear); Urine Urobilinogen Normal (Normal); Urine pH 6.5 (5.0 - 8.0)
[2024-11-20 21:17] LABS: White Blood Cells 0-5 SEEN /hpf (0-5)
[2024-11-20 21:18] LABS: Red Blood Cells-Urine 0-5 SEEN /hpf (0-5); Squamous Epithelial Cells - UA 0-5 SEEN /hpf (5-10)
[2024-11-20] MEDS: Ceftriaxone 1 GM/50 ML BAG IV (21:39)
--- NOTE | 2024-11-20 21:46 | PCM.HP.STD ---
[facility] General General Date of Admission: 11/20/24 Date of Service: 11/20/24 Chief Complaint: Fall Yesterday with Cough and SOB. HPI Narrative ORION MATT, is a 74 F with a past medical history of essential hypertension; on valsartan and as needed furosemide daily, hyperlipidemia; on simvastatin, obesity; with a BMI of 35.2 this admission, DM-2; of unknown control on insulin glargine 35 units sq at bedtime plus insulin aspart 3 times daily, history of atrial fibrillation, history of diverticulitis, history of colorectal cancer; s/p resection in remission since 2018, history of Right breast cancer; s/p chemotherapy and radiation, depression; previously on duloxetine (currently on hold), history of heart murmur, history of iron deficiency anemia; on oral iron supplement, overactive bladder; on mirabegron chronic idiopathic constipation; on linaclotide plus senna 2 tabs daily, GERD; on omeprazole, history of muscle spasm; on methocarbamol 3 times daily as needed, osteoporosis; on alendronate, OA; with recent C6-C7 surgery for decompression and recent admission here from October 30, 2024 to November 02, 2024 with LGIB with large stool burden on CT; s/p evaluation by gastroenterology with colonoscopy done on November 01, 2024 that revealed one 7 mm polyp at the splenic flexure removed with jumbo cold forceps resected and retrieved along with 2 bleeding colonic angiodysplastic lesions treated with argon plasma coagulation in the setting of previous end-to-end colocolonic anastomosis characterized by healthy-appearing mucosa who re-presents to [facility] ER complaining of fall yesterday with cough and shortness of breath. Ms. Matt reports she fell yesterday after missing her walker and has felt weak all over since that time. She cannot detail the events of the trauma or if she significantly injured herself. She does complain of bilateral calf pain and overall not feeling well. In the ER she was noted to be hypoxic requiring initiation of 2L NC with nonproductive cough. There was no report of chills, nausea, vomiting, diarrhea, chest pain, shortness of breath, syncope, headache or rash but she was noted to have fever of 100.1 ?F present on admission. In the ER she was noted to have bibasilar ground-glass opacities consistent with minor inflammation versus early pneumonia that was not present on her previous CT scan last admission with the ER physician suspecting early Pneumonia with Acute Hypoxic Respiratory Insufficiency complicated by Hypoglycemia of 48 g/dL present on admission. She was then admitted to the general medical floor with telemetric monitoring for ongoing care for state that is expected to extend beyond [address] [facility] Medical History (Updated 11/21/24 @ 00:[address] Sushant Peralta, DO) Decompression injury of spinal cord Skin cancer Kidney stones Hypoglycemia Blood transfusion during current hospitalisation UTI (urinary tract infection) Bone fracture Breast cancer Colorectal cancer Cancer Depression Diabetes Kidney disease GERD (gastroesophageal reflux disease) Former smoker Atrial fibrillation Hypertension Home Medications ?Medication ?Instructions ?Recorded ?Last Taken ?Type aspirin 81 mg tablet,delayed 81 mg PO DAILY HEART 09/06/17 Unknown History release (Aspir-Low) insulin aspart U-100 100 unit/mL 24 unit subcut TIDCM DIABETES 09/06/17 Unknown History (3 mL) subcutaneous pen (Novolog FlexPen U-100 Insulin aspart) insulin glargine 100 unit/mL (3 35 unit subcut QHS DIABETES 09/06/17 Unknown History mL) subcutaneous pen (Lantus Solostar U-100 Insulin) omeprazole 40 mg capsule,delayed 40 mg PO DAILY REFLUX 09/06/17 09/13/17 06:00 History release simvastatin 10 mg tablet (Zocor) 10 mg PO QHS CHOLESTEROL 09/06/17 Unknown History valsartan 40 mg tablet (Diovan) 40 mg PO BID BP 09/06/17 09/13/17 06:00 History magnesium oxide 400 mg (241.3 mg 400 mg PO DAILY muscle spasm 10/30/24 Unknown History magnesium) tablet iron polysaccharide complex-iron 1 tab PO DAILY #60 tabs 11/02/24 Unknown Rx heme polypeptide 28 mg tablet alendronate 70 mg tablet (Fosamax) 70 mg PO .QOWK osteoporosis 11/16/24 Unknown History linaclotide 145 mcg capsule 145 mcg PO QAM #90 caps 11/16/24 Unknown Rx (Linzess) methocarbamol 750 mg tablet 750 mg PO TID PRN muscle spasms 11/16/24 Unknown History duloxetine 30 mg capsule,delayed 30 mg PO DAILY 11/20/24 Unknown History release Held on 11/20/24. Instructions: pt doesnt want to take bc it will make me a zombie furosemide 20 mg tablet 20 mg PO DAILY PRN swelling 11/20/24 Unknown History mirabegron 25 mg tablet,extended 25 mg PO DAILY 11/20/24 Unknown History release 24 hr (Myrbetriq) pen needle, diabetic 32 gauge x 11/20/24 Unknown History (BD Luz Elena 2nd Gen Pen Needle) sennosides 8.6 mg-docusate sodium 2 tab PO DAILY 11/20/24 Unknown History 50 mg tablet (Senexon-S) Allergy/AdvReac Type Severity Reaction Status Date / Time celecoxib (From Celebrex) Allergy Hives Verified 11/20/24 18:20 ramipril Allergy Hives Verified 11/20/24 18:20 rofecoxib (From Vioxx) Allergy Hives Verified 11/20/24 18:20 letrozole (From Femara) AdvReac Pain in Verified 11/20/24 18:20 joints Family History Father CVA (cerebral vascular accident), Onset Age: 39 Sister Breast cancer Diabetes Mother Thyroid disorder Brother Arthritis Colon cancer Diabetes Mental disorder Psychiatric care CVA (cerebral vascular accident) Social History Smoking Status: Former smoker alcohol intake: current details: wine substance use type: does not use ROS ROS Narrative Review of Systems: Constitutional: Patient admits to generalized weakness but she denies fever or chills. Eyes: Patient denies changes in vision or discharge from eyes. ENT: Patient denies runny nose, sore throat or ear pain. Resp: Patient admits to productive cough with yellowish sputum and shortness of breath requiring supplemental oxygen in ER. CV: Patient denies chest pain, palpitations, heart racing or lower extremity edema. GI: Patient admits to chronic constipation but she denies abdominal pain, nausea, vomiting or diarrhea. : Patient denies dysuria or hematuria. MSK: Patient admits to generalized weakness made worse after recent fall as per HPI. Skin: Patient denies rash, abscess, wounds or jaundice. Psych: Patient denies symptoms of uncontrolled depression or anxiety. Neuro: Patient denies headache, paresthesias or focal neurologic deficits. Allergy: Patient denies lip swelling, tongue swelling or urticaria. Hematology: Patient denies easy bleeding or easy bruisability - but she was noted to have recent LGIB as per HPI. Endocrinology: Patient denies polyuria, polydipsia, polyphagia or heat/cold intolerance. 14 point ROS otherwise negative except for positives noted above in HPI. Vital Signs Vital Signs Vital Signs: 11/20/24 18:19 11/20/24 18:24 11/20/24 18:25 Temperature 100.1 F H 100.1 F H Temperature Source Oral Oral Pulse Rate 99 96 Respiratory Rate 12 12 Respiratory Effort Normal Respiratory Pattern Normal Blood Pressure 148/59 H 148/59 H Blood Pressure Mean 88 88 Pulse Ox 96 96 Oxygen Delivery Method Room Air Room Air Oxygen Flow Rate (L/min) 11/20/24 19:24 11/20/24 19:30 11/20/24 19:35 Temperature 99 F Temperature Source Oral Pulse Rate 93 Respiratory Rate 18 Respiratory Effort Respiratory Pattern Blood Pressure 126/55 H 146/72 H Blood Pressure Mean 78 90 Pulse Ox 97 93 Oxygen Delivery Method Room Air Oxygen Flow Rate (L/min) 11/20/24 19:45 11/20/24 20:00 11/20/24 20:05 Temperature Temperature Source Pulse Rate 95 97 96 Respiratory Rate 16 17 Respiratory Effort Respiratory Pattern Blood Pressure 126/55 H Blood Pressure Mean 76 Pulse Ox 97 89 96 Oxygen Delivery Method Oxygen Flow Rate (L/min) 11/20/24 20:19 11/20/24 20:30 11/20/24 21:00 Temperature 98.3 F Temperature Source Oral Pulse Rate 94 94 Respiratory Rate 15 25 H Respiratory Effort Respiratory Pattern Blood Pressure 120/52 L 123/54 H Blood Pressure Mean 72 77 Pulse Ox 95 95 94 Oxygen Delivery Method Room Air Oxygen Flow Rate (L/min) 11/20/24 21:21 11/20/24 21:21 Temperature Temperature Source Pulse Rate Respiratory Rate 20 H 20 H Respiratory Effort Respiratory Pattern Blood Pressure Blood Pressure Mean Pulse Ox 88 93 Oxygen Delivery Method Room Air Nasal Cannula Oxygen Flow Rate (L/min) 2 Weight Weight: 186 lb 4.65 oz Body Mass Index (BMI) 35.2 Physical Exam Const alert, oriented x3 and no apparent distress Constitutional Narrative: Obese. General Appearance: cooperative HEENT normocephalic, head/scalp atraumatic, hearing grossly normal bilaterally and moist oral mucous membranes Eyes PERRL, EOMs intact bilaterally and conjunctivae normal Neck no lymphadenopathy, supple and no JVD Resp normal respiratory effort, no retractions, no use of accessory muscles and clear to auscultation bilaterally Cardio regular rate and regular rhythm GI normal to inspection, nondistended, normoactive bowel sounds, soft to palpation, non-tender and non-distended GI Narrative: Obese. Extremity normal to inspection, full ROM and no clubbing, cyanosis or edema Skin Skin Narrative: Patient has no evidence of rash, abscess, wounds or jaundice. Neuro oriented x3, CN's II-XII intact bilaterally, moves all extremities and no focal motor deficits Sensorium / Orientation: awake, alert, oriented to person, oriented to place and oriented to time Speech: speech normal Psych affect normal Results Medical Records Data Attestation: I reviewed the patient's medical records Lab / Micro Data Attestation: I reviewed the patient's lab results. 11/20/24 18:30 11/20/24 18:30 Labs: Laboratory Results - last 24 hr 11/20/24 18:30: WBC 5.8, RBC 3.50 L, Hgb 10.0 L, Hct 29.8 L, MCV 85.1, MCH 28.6, MCHC 33.6, RDW Std Deviation 46.7 H, RDW Coeff of Miriam 15.2 H, Plt Count 303, MPV 8.3, Immature Gran % (Auto) 0.500, Neut % (Auto) 83.4 H, Lymph % (Auto) 11.1 L, Spencer % (Auto) 3.6, Eos % (Auto) 1.2, Baso % (Auto) 0.2, Absolute Neuts (auto) 4.8, Absolute Lymphs (auto) 0.64 L, Nucleated RBC % 0, Sodium 134, Potassium 4.2, Chloride 98, Carbon Dioxide 22.8, Anion Gap 14, BUN 15, Creatinine 0.98, Estim Creat Clear Calc 48.17 L, Est GFR (MDRD) Non-Af 60, BUN/Creatinine Ratio 15.2, Glucose 48 L, Calcium 9.3, Total Bilirubin 0.39, AST 42 H, ALT 28, Alkaline Phosphatase 67, Total Protein 7.1, Albumin 3.6, Globulin 3.5, Albumin/Globulin Ratio 1.0 11/20/24 19:00: Lactic Acid 1.4 11/20/24 20:20: Urine Color Yellow, Urine Clarity Clear, Urine pH 6.5, Ur Specific Lamar 1.010, Urine Protein 30 H, Urine Glucose (UA) Normal, Urine Ketones Negative, Urine Occult Blood 50 H, Urine Nitrite Negative, Urine Bilirubin Negative, Urine Urobilinogen Normal, Ur Leukocyte Esterase Negative, Urine RBC 0-5 SEEN, Urine WBC 0-5 SEEN, Ur Squamous Epith Cells 0-5 SEEN, Urine Bacteria 0 SEEN, Urine Mucus 0 SEEN Micro: Microbiology 11/20/24 19:00 Mucosa - Nose SARS-CoV-2, Influenza & RSV (PCR) - Final Imaging Radiology Impression Venous Duplex 11/20/24 18:49 IMPRESSION: 1. No evidence of acute or chronic deep vein thrombosis in the right lower extremity. 2. No evidence of acute or chronic deep vein thrombosis in the left lower extremity. 3. No evidence of thrombophlebitis. Reading Location: [facility] Chest X-Ray 11/20/24 19:14 IMPRESSION: No active cardiopulmonary disease these. Reading Location: [facility] Abdomen/Pelvis CT 11/20/24 19:15 IMPRESSION: Areas of nonspecific ground-glass opacification in the lower lobes. Can not exclude mild inflammation. Coronary artery calcifications. Small left adrenal gland nodule most likely adenoma. Small pocket of air along the anterior wall of the urinary bladder most likely iatrogenic. Status post colorectal resection and reanastomosis. Anterior wall umbilical hernia. Other nonacute findings detailed above. Reading Location: [facility] Brain CT 11/20/24 19:15 IMPRESSION: NORMAL NONCONTRAST HEAD CT. Reading Location: [id number] Cervical Spine CT 11/20/24 19:15 IMPRESSION: No acute fracture or subluxation. Postsurgical changes and degenerative disc disease as described above. Reading Location: [id number] Assessment & Plan Assessment/Plan (1) Pneumonia: QUALIFIERS: Pneumonia type: due to unspecified organism Laterality: bilateral Lung location: unspecified part of lung Qualified Code(s): J18.9 - Pneumonia, unspecified organism (2) Respiratory insufficiency: (3) Hypoglycemia associated with type 2 diabetes mellitus: (4) Fall at home: QUALIFIERS: Encounter type: initial encounter Qualified Code(s): W19.XXXA - Unspecified fall, initial encounter; Y92.009 - Unspecified place in unspecified non-institutional (private) residence as the place of occurrence of the external cause (5) Generalized weakness: (6) Ambulatory dysfunction: (7) Decompression injury of spinal cord: (8) History of lower GI bleeding: (9) Obesity (BMI 30-39.9): PLAN: Plan 1. Bibasilar ground-glass opacities consistent with minor inflammation versus early pneumonia that was not present on her previous CT scan last admission accompanied by fever of 100.1 ?F present on admission - Admit to the general medical floor. Start empiric IV antibiotics with piperacillin-tazobactam and await culture and sensitivity data. Check urinary antigens to Streptococcus pneumonia and Legionella. Start scheduled guaifenesin twice daily. Give acetaminophen as needed for pain or fever. 2. Acute hypoxic respiratory insufficiency due to #1 - Wean supplemental oxygen as tolerated. 3. Hypoglycemia of 48 g/dL present on admission complicating #1 & #2 in the setting of known DM-2; on insulin glargine 35 units SQ at bedtime plus insulin aspart 3 times daily - Give D5 NS at 70 cc/h and cut insulin dose by ~40% to prevent further hypoglycemia. Check hemoglobin A1c to objectively evaluate quality of diabetic control. 4. Fall at Home due to Generalized Weakness with Ambulatory Dysfunction after recent C6-C7 surgery for decompression adding to the medical complexity of #1 - #3 - PT/OT and Case Management consult and treat on rounds in a.m. for further recommendations regarding possible inpatient rehabilitation with help appreciated in advance. 5. Recent admission here from October 30, 2024 to November 02, 2024 with LGIB with large stool burden on CT; s/p evaluation by gastroenterology with colonoscopy done on November 01, 2024 that revealed one 7 mm polyp at the splenic flexure removed with jumbo cold forceps resected and retrieved along with 2 bleeding colonic angiodysplastic lesions treated with argon plasma coagulation in the setting of previous end-to-end colocolonic anastomosis characterized by healthy-appearing mucosa amplifying the pathology of #1 - #4 - Noted. Patient has no evidence of active bleeding at this time. 6. Obesity; with a BMI of 35.2 this admission adding to the burden of disease outlined from #1 - #5 - Weight loss will be recommended. Check TSH. This complicates her case and may hamper recovery. 7. Essential hypertension; on valsartan and as needed furosemide daily - Stable with blood pressure of 148/59 mmHg present on admission. Continue home regimen as previous plus give hydralazine IV as needed for systolic blood pressure greater than 160 mmHg. 8. Hyperlipidemia; on simvastatin - Resume statin and check lipid profile. 9. History of atrial fibrillation - Stable with the patient noted to be in NSR on admission. 10. History of diverticulitis - Noted with no evidence of recurrence on CT this admission. 11. History of colorectal cancer; s/p resection in remission since 2018 - Noted. 12. History of Right breast cancer; s/p chemotherapy and radiation - Noted. 13 Depression; previously on duloxetine (currently on hold) - We we will continue to hold this agent as patient systemics or feel like a zombie. 14. History of heart murmur - Noted. 15. History of iron deficiency anemia; on oral iron supplement - Stable with hemoglobin of 10 g/dL and MCV of 85.1 fL (up from 9.1 g/dL last admission on November 02, 2024). 16. Overactive bladder; on mirabegron - Continue mirabegron as before. 17. 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; on linaclotide plus senna 2 tabs daily - Maintain current treatment. 18. GERD; on omeprazole - Resume PPI as previous. 19. History of muscle spasms; on methocarbamol 3 times daily as needed - Continue current therapy. 20. Osteoporosis; on alendronate - Restart alendronate as outpatient. 21. OA; with recent C6-C7 surgery for decompression - Noted. Given acetaminophen for pain or fever as outlined in #1. 22. DVT prophylaxis - SCD's only in light of recent LGIB outlined in #5. Total time: Approximately (but not less than) 75 minutes. Charges/Coding Visit Charges Inpatient E&M: 90894 Init Hosp L3
[2024-11-20 22:35] LABS: Magnesium 1.6 mg/dL (1.5-2.2)
[2024-11-20] MEDS: Azithromycin 500 MG in 0.9% Normal Saline (250mL Bag) 250 ML 255 MG IV (22:36)
[2024-11-20 23:41] LABS: Bedside Glucose 212 mg/dL (74-106)
[2024-11-20] MEDS: MELATONIN 3 MG TABLET PO (23:46)
[2024-11-20] MEDS: proCHLORPERazine 10 MG/2 ML Vial 5 MG IV (23:46)
[2024-11-20] MEDS: guaiFENesin 10 ML UDC (200MG/10ML) PO (23:46)
[2024-11-20] MEDS: Atorvastatin Calcium 10 MG Tablet 5 MG PO (23:46)
[2024-11-20] MEDS: 0.9% Normal Saline (1000mL) 1,000 ML 70 ML IV (23:47)
[2024-11-20] MEDS: Insulin Glargine-YFGN 100 UNIT/ML Pen 25 UNIT SC (23:52)
[2024-11-21] VITALS (12 sets, daily range): BP systolic 104–125; BP diastolic 40–55; PULSE 72–87; RESP 16–18; TEMP 36.4–37.7; O2SAT 93–99; BMI 35.0
[2024-11-21 04:50] LABS: Absolute Lymphocyte Count 0.86 X10^3/uL (0.83-4.51); Absolute Neutrophil Count 3.2 X10^3/uL (2.0-7.7); Basophil# 0.01 X10^3/uL; Basophil% 0.2 % (0-1); Eosinophil# 0.06 X10^3/uL; Eosinophils% 1.3 % (0-5); Hematocrit 28.3 % (37-47); Hemoglobin 9.7 g/dL (12.0-15.0); Lymphocyte # 0.86 X10^3/ul (0.83-4.51); Lymphocyte % 19.2 % (19-41); Mean Corp Hgb Conc 34.3 g/dL (32-36); Mean Corpuscular Hgb 29.2 pg (27.0-32.0); Mean Corpuscular Volume 85.2 fL (81-99); Mean Platelet Vol. 8.4 fl (6.2-12.0); Monocyte# 0.32 X10^3/uL; Monocyte% 7.1 % (0-10); NRBC Flagged by Analyzer 0 % (0-5); Neutrophil # 3.21 X10^3/uL (2.7-7.7); Neutrophil % 71.8 % (47-70); Platelet Count 261 K/mm3 (150-450); RBC Distribution Width CV 15.2 % (11.6-14.6); RBC Distribution Width SD 47.1 fl (35.1-43.9); Red Blood Count 3.32 M/mm3 (4.2-5.4); White Blood Count 4.5 K/mm3 (4.4-11.0)
[2024-11-21 05:29] LABS: ALB/GLOB Ratio 1.1 RATIO (0.9-2.4); AST(SGOT) 37 U/L (<=31); Alanine Aminotransfer ALT/SGPT 25 U/L (<=34); Albumin, Serum 3.5 g/dL (3.4-4.8); Alkaline Phosphatase 63 U/L (35-104); Anion Gap 12 (5-15); BUN 12 mg/dL (4-19); BUN/Creat Ratio 12.6 RATIO (10-20); Calcium,Total 8.7 mg/dL (7.6-11.0); Carbon Dioxide 22.3 mmol/L (21.0-32.0); Chloride 100 mmol/L (98-108); Creatinine, Serum 0.95 mg/dL (0.70-1.20); EST Glomerular Filtration Rate 62 (>60); Estimated Creatinine Clearance 49.59 ml/min (50-250); Globulin 3.2 g/dL (2.2-4.2); Glucose 170 mg/dL (70-99); Potassium 4.1 mmol/L (3.3-5.1); Protein, Total 6.7 g/dL (5.9-8.4); Sodium Level 134 mmol/L (133-145); Thyroid Stim Hormone (TSH) 0.651 uIU/mL (0.300-4.200); Total Bilirubin 0.35 mg/dL (0.00-1.30)
[2024-11-21 05:52] LABS: Hemoglobin A1c 7.4 % (<=5.6)
[2024-11-21] MEDS: Piperacil/Tazobactam 3.375 GM in 0.9% Normal Saline (50mL MB+) 50 ML IV ×2 (06:10→14:11)
[2024-11-21] MEDS: Insulin Lispro 100 UNIT/ML INSULN.PEN SC (06:15)
[2024-11-21 06:38] LABS: Bedside Glucose 170 mg/dL (74-106)
--- NOTE | 2024-11-21 07:31 | PCM.PN.HOSP ---
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], initial encounter (11/20/24) Unspecified fall, initial encounter (11/20/24) Unspecified place in unspecified non-institutional (private) residence as the place of occurrence of the external cause (11/20/24) Personal history of other diseases of the digestive system (11/20/24) Objective Data Objective Data Vital Signs: Vital Signs Temp Pulse Resp BP Pulse Ox O2 Del Method O2 Flow Rate 98.8 F 85 16 115/55 L 94 Nasal Cannula 2 11/21/24 03:20 11/21/24 03:20 11/21/24 03:20 11/21/24 03:20 11/21/24 07:27 11/21/24 07:27 11/21/24 07:27 Oxygen Flow Rate (L/min) 2 Oxygen Delivery Method Nasal Cannula Weight: 185 lb 10.067 oz Body Mass Index (BMI) 35.0 Intake & Output: Intake and Output for Last 24 Hours 11/19/24 11/20/24 11/21/24 23:59 23:59 23:59 Intake Total 805 / 805 25.67 / 25.67 Output Total 400 / 400 Balance 805 / 805 -374.33 / -374.33 Lab / Micro Data 11/21/24 03:51 11/21/24 03:51 Labs: Laboratory Results - last 24 hr 11/20/24 18:30: WBC 5.8, RBC 3.50 L, Hgb 10.0 L, Hct 29.8 L, MCV 85.1, MCH 28.6, MCHC 33.6, RDW Std Deviation 46.7 H, RDW Coeff of Miriam 15.2 H, Plt Count 303, MPV 8.3, Immature Gran % (Auto) 0.500, Neut % (Auto) 83.4 H, Lymph % (Auto) 11.1 L, [place] % (Auto) 3.6, Eos % (Auto) 1.2, Baso % (Auto) 0.2, Absolute Neuts (auto) 4.8, Absolute Lymphs (auto) 0.64 L, Nucleated RBC % 0, Sodium 134, Potassium 4.2, Chloride 98, Carbon Dioxide 22.8, Anion Gap 14, BUN 15, Creatinine 0.98, Estim Creat Clear Calc 48.17 L, Est GFR (MDRD) Non-Af 60, BUN/Creatinine Ratio 15.2, Glucose 48 L, Calcium 9.3, Magnesium 1.6, Total Bilirubin 0.39, AST 42 H, ALT 28, Alkaline Phosphatase 67, Total Protein 7.1, Albumin 3.6, Globulin 3.5, Albumin/Globulin Ratio 1.0 11/20/24 19:00: Lactic Acid 1.4 11/20/24 20:20: Urine Color Yellow, Urine Clarity Clear, Urine pH 6.5, Ur Specific [place] 1.010, Urine Protein 30 H, Urine Glucose (UA) Normal, Urine Ketones Negative, Urine Occult Blood 50 H, Urine Nitrite Negative, Urine Bilirubin Negative, Urine Urobilinogen Normal, Ur Leukocyte Esterase Negative, Urine RBC 0-5 SEEN, Urine WBC 0-5 SEEN, Ur Squamous Epith Cells 0-5 SEEN, Urine Bacteria 0 SEEN, Urine Mucus 0 SEEN 11/20/24 23:22: POC Glucose 212 H 11/21/24 03:51: WBC 4.5, RBC 3.32 L, Hgb 9.7 L, Hct 28.3 L, MCV 85.2, MCH 29.2, MCHC 34.3, RDW Std Deviation 47.1 H, RDW Coeff of Miriam 15.2 H, Plt Count 261, MPV 8.4, Immature Gran % (Auto) 0.400, Neut % (Auto) 71.8 H, Lymph % (Auto) 19.2, [place] % (Auto) 7.1, Eos % (Auto) 1.3, Baso % (Auto) 0.2, Absolute Neuts (auto) 3.2, Absolute Lymphs (auto) 0.86, Nucleated RBC % 0, Sodium 134, Potassium 4.1, Chloride 100, Carbon Dioxide 22.3, Anion Gap 12, BUN 12, Creatinine 0.95, Estim Creat Clear Calc 49.59 L, Est GFR (MDRD) Non-Af 62, BUN/Creatinine Ratio 12.6, Glucose 170 H, Hemoglobin A1c 7.4 H, Calcium 8.7, Phosphorus 3.0, Total Bilirubin 0.35, AST 37 H, ALT 25, Alkaline Phosphatase 63, Total Protein 6.7, Albumin 3.5, Globulin 3.2, Albumin/Globulin Ratio 1.1, TSH 0.651 11/21/24 06:09: POC Glucose 170 H Micro: Microbiology 11/20/24 19:00 Mucosa - Nose SARS-CoV-2, Influenza & RSV (PCR) - Final Radiography Diagnostic Testing: Radiology Impression Venous Duplex 11/20/24 18:49 IMPRESSION: 1. No evidence of acute or chronic deep vein thrombosis in the right lower extremity. 2. No evidence of acute or chronic deep vein thrombosis in the left lower extremity. 3. No evidence of thrombophlebitis. [facility] 11/20/24 19:14 IMPRESSION: No active cardiopulmonary disease these. [facility] Abdomen/Pelvis CT 11/20/24 19:15 IMPRESSION: Areas of nonspecific ground-glass opacification in the lower lobes. Can not exclude mild inflammation. Coronary artery calcifications. Small left adrenal gland nodule most likely adenoma. Small pocket of air along the anterior wall of the urinary bladder most likely iatrogenic. Status post colorectal resection and reanastomosis. Anterior wall umbilical hernia. Other nonacute findings detailed above. Reading Location: [facility] Brain CT 11/20/24 19:15 IMPRESSION: NORMAL NONCONTRAST HEAD CT. Reading Location: [facility] Cervical Spine CT 11/20/24 19:15 IMPRESSION: No acute fracture or subluxation. Postsurgical changes and degenerative disc disease as described above. Reading Location: [id number] Physical Exam Narrative Seen and examined. Patient denies acute onset of cough cold or URI symptoms except getting short of breath sometimes even on laying or sleeping for about 1 week but cannot progress on the day of when she could not get up from sitting position or fall. Denies history of chronic lung disease but has history of smoking 12 years less than 1 pack/day in her young days. Denies burning micturition. Bowel movement is good. Was recently discharged on 11/02 after acute GI bleed and had colonoscopy and polypectomy. Patient had cervical spine surgery in July 2024. Denies history of DVT or pulm Physical exam General: Alert, Oriented x3, Cooperative HEENT: Atraumatic, PERRLA, EOMI, Normocephalic Oral: No Gingival or Mucosal Lesions/ Ulcerations Neck: Supple, No JVD, Negative Carotid Bruits. Cervical spine surgery well-healed Chest wall/Lungs: Air entry diminished in bilateral lung bases. No crepitation/rhonchi Cardiovascular: Regular rate, Regular Rhythm, Normal S1, Normal S2, No M/G/R Abdomen: Bowel Sounds Present, Soft, Non Tender, Non-Distended : No dysuria. No renal angle tenderness. No suprapubic tenderness. Extremities: No edema, Capillary Refill Less than 3 Seconds Skin: No rashes, No breakdown Musculoskeletal: No Tenderness to Palpation of Joints or Extremities Neurological: Cranial nerves II-XII grossly intact, DTR 2+/4. No acute focal neurological deficit. Psych/Mental Status: Normal Affect, Appropriate. Assessment & Plan Assessment/Plan (1) Pneumonia: QUALIFIERS: Laterality: bilateral Lung location: unspecified part of lung Pneumonia type: due to unspecified organism Qualified Code(s): J18.9 - Pneumonia, unspecified organism (2) Respiratory insufficiency: (3) Hypoglycemia associated with type 2 diabetes mellitus: (4) Fall at home: QUALIFIERS: Encounter type: initial encounter Qualified Code(s): W19.XXXA - Unspecified fall, initial encounter; Y92.009 - Unspecified place in unspecified non-institutional (private) residence as the place of occurrence of the external cause (5) Generalized weakness: (6) Ambulatory dysfunction: (7) Decompression injury of spinal cord: (8) History of lower GI bleeding: (9) Obesity (BMI 30-39.9): PLAN: Plan 74-year-old female is being admitted for pain in the bilateral calfs, unwitnessed fall on the day before admission after missing walker and falling forward unknown LOC. Denies head injury. Complain of generalized weakness and decreased oral intake in the last few days. About 12 pack years of smoking 1. Bilateral atelectasis, generalized weakness, accompanied by low-grade fever of 100.1 ?F present on admission - Admit to the general medical floor. Portable frontal view of chest x-ray individually reviewed, no active cardiopulmonary disease but little underventilated. CT abdomen shows lower lung goldsmith has areas of groundglass opacification. Urinary antigens are negative. Triple PCR for SARS-CoV-2, flu and RSV are negative. CT chest was done and reviewed. Shows mild lung emphysema. Will monitor nodule in posterior right lower lobe. No groundglass explanation but patient has atelectasis or scarring otherwise no focal consolidation. UA is negative and she did not have burning micturition. I will discontinue antibiotic. Continue incentive spirometry, Mucinex DM and Pep 2. Hypoglycemia of 48 g/dL present on admission with history of DM-2; on insulin glargine 35 units SQ at bedtime plus insulin aspart 3 times daily . Hypoglycemia resolved. A1c 7.4. Glucose 145 [place] 170. Microbiology Past 72 Hours 11/21/24 03:20 Urine, Clean Catch Legionella Antigen - Final 11/21/24 03:20 Urine, Clean Catch Streptococcus pneumoniae Antigen (M - Final 11/20/24 19:00 Mucosa - Nose SARS-CoV-2, Influenza & RSV (PCR) - Final Laboratory Results 11/20/24 18:30: WBC 5.8, RBC 3.50 L, Hgb 10.0 L, Hct 29.8 L, MCV 85.1, MCH 28.6, MCHC 33.6, RDW Std Deviation 46.7 H, RDW Coeff of Miriam 15.2 H, Plt Count 303, MPV 8.3, Immature Gran % (Auto) 0.500, Neut % (Auto) 83.4 H, Lymph % (Auto) 11.1 L, [place] % (Auto) 3.6, Eos % (Auto) 1.2, Baso % (Auto) 0.2, Absolute Neuts (auto) 4.8, Absolute Lymphs (auto) 0.64 L, Nucleated RBC % 0, Sodium 134, Potassium 4.2, Chloride 98, Carbon Dioxide 22.8, Anion Gap 14, BUN 15, Creatinine 0.98, Estim Creat Clear Calc 48.17 L, Est GFR (MDRD) Non-Af 60, BUN/Creatinine Ratio 15.2, Glucose 48 L, Calcium 9.3, Magnesium 1.6, Total Bilirubin 0.39, AST 42 H, ALT 28, Alkaline Phosphatase 67, Total Protein 7.1, Albumin 3.6, Globulin 3.5, Albumin/Globulin Ratio 1.0 11/20/24 19:00: Lactic Acid 1.4 11/20/24 20:20: Urine Color Yellow, Urine Clarity Clear, Urine pH 6.5, Ur Specific [place] 1.010, Urine Protein 30 H, Urine Glucose (UA) Normal, Urine Ketones Negative, Urine Occult Blood 50 H, Urine Nitrite Negative, Urine Bilirubin Negative, Urine Urobilinogen Normal, Ur Leukocyte Esterase Negative, Urine RBC 0-5 SEEN, Urine WBC 0-5 SEEN, Ur Squamous Epith Cells 0-5 SEEN, Urine Bacteria 0 SEEN, Urine Mucus 0 SEEN 11/20/24 23:22: POC Glucose 212 H 11/21/24 03:51: WBC 4.5, RBC 3.32 L, Hgb 9.7 L, Hct 28.3 L, MCV 85.2, MCH 29.2, MCHC 34.3, RDW Std Deviation 47.1 H, RDW Coeff of Miriam 15.2 H, Plt Count 261, MPV 8.4, Immature Gran % (Auto) 0.400, Neut % (Auto) 71.8 H, Lymph % (Auto) 19.2, [place] % (Auto) 7.1, Eos % (Auto) 1.3, Baso % (Auto) 0.2, Absolute Neuts (auto) 3.2, Absolute Lymphs (auto) 0.86, Nucleated RBC % 0, Sodium 134, Potassium 4.1, Chloride 100, Carbon Dioxide 22.3, Anion Gap 12, BUN 12, Creatinine 0.95, Estim Creat Clear Calc 49.59 L, Est GFR (MDRD) Non-Af 62, BUN/Creatinine Ratio 12.6, Glucose 170 H, Hemoglobin A1c 7.4 H, Calcium 8.7, Phosphorus 3.0, Total Bilirubin 0.35, AST 37 H, ALT 25, Alkaline Phosphatase 63, Total Protein 6.7, Albumin 3.5, Globulin 3.2, Albumin/Globulin Ratio 1.1, TSH 0.651 11/21/24 06:09: POC Glucose 170 H 11/21/24 11:14: POC Glucose 145 H 4. Acute debility due to C6-C7 surgery for decompression-patient denied for to me but said she could not get out of her couch. PT/OT and Case Management consult. 5. Recent admission here from October 30, 2024 to November 02, 2024 with LGIB with large stool burden on CT; s/p evaluation by gastroenterology with colonoscopy done on November 01, 2024 that revealed one 7 mm polyp at the splenic flexure removed with jumbo cold forceps resected and retrieved along with 2 bleeding colonic angiodysplastic lesions treated with argon plasma coagulation in the setting of previous end-to-end colocolonic anastomosis characterized by healthy-appearing mucosa amplifying the pathology of #1 - #4 - Noted. Patient has no evidence of active bleeding at this time. 6. Obesity; with a BMI of 35.2 this admission adding to the burden of disease outlined from #1 - #5 - Weight loss will be recommended. Check TSH. This complicates her case and may hamper recovery. 7. Essential hypertension; on valsartan and as needed furosemide daily - Stable with blood pressure of 148/59 mmHg present on admission. Continue home regimen as previous plus give hydralazine IV as needed for systolic blood pressure greater than 160 mmHg. 8. Hyperlipidemia; on simvastatin - Resume statin and check lipid profile. 9. History of atrial fibrillation - Stable with the patient noted to be in NSR on admission. 10. History of diverticulitis - Noted with no evidence of recurrence on CT this admission. 11. History of colorectal cancer; s/p resection in remission since 2018 - Noted. 12. History of Right breast cancer; s/p chemotherapy and radiation - Noted. 13 Depression; previously on duloxetine (currently on hold) - We we will continue to hold this agent as patient systemics or feel like a zombie. 14. History of heart murmur - Noted. 15. History of iron deficiency anemia; on oral iron supplement - Stable with hemoglobin of 10 g/dL and MCV of 85.1 fL (up from 9.1 g/dL last admission on November 02, 2024). 16. Overactive bladder; on mirabegron - Continue mirabegron as before. 17. 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; on linaclotide plus senna 2 tabs daily - Maintain current treatment. 18. GERD; on omeprazole - Resume PPI as previous. 19. History of muscle spasms; on methocarbamol 3 times daily as needed - Continue current therapy. 20. Osteoporosis; on alendronate - Restart alendronate as outpatient. 21. OA; with recent C6-C7 surgery for decompression - Noted. Given acetaminophen for pain or fever as outlined in #1. 22. DVT prophylaxis - SCD's Charges/Coding Visit Charges Inpatient E&M: 33646 Subs Hosp L2
[2024-11-21] MEDS: Ascorbic Acid 500 MG Tablet 1000 MG PO ×2 (08:17→17:08)
[2024-11-21] MEDS: Aspirin E.C. 81 MG Tablet PO (08:17)
[2024-11-21] MEDS: Losartan Potassium 25 MG Tablet PO ×2 (08:18→19:33)
[2024-11-21] MEDS: Magnesium Chloride 64 MG Delay Rel.Tablet 128 MG PO (08:19)
[2024-11-21] MEDS: Vibegron 75 MG TABLET PO (08:19)
[2024-11-21] MEDS: Senna/Docusate Sodium 1 Tablet 2 TABLET PO (08:20)
[2024-11-21] MEDS: Cholecalciferol (Vit D3) 125 MCG CAPSULE (5,000 UNITS) PO (08:21)
[2024-11-21] MEDS: Zinc Sulfate 50 mg zinc (220 mg) ORAL capsule PO (08:21)
[2024-11-21] MEDS: Lactobacillis Acidophilus 1 CAP PO ×4 (08:22→19:33)
[2024-11-21] MEDS: Pantoprazole Sodium 40 MG Tablet PO (08:23)
[2024-11-21] MEDS: Acetaminophen 325 MG Tablet 650 MG PO (08:23)
[2024-11-21] MEDS: Iron Polysaccharide Complex 150 MG CAPSULE PO (08:24)
[2024-11-21] MEDS: guaiFENesin 10 ML UDC (200MG/10ML) PO (08:25)
[2024-11-21] MEDS: Insulin Lispro 100 UNIT/ML INSULN.PEN 16 UNIT SC ×3 (08:31→17:08)
--- NOTE | 2024-11-21 09:50 | CT_ITS ---
EXAM: CT Chest Without Intravenous Contrast CLINICAL INDICATION: FEVER, GROUHD GLASS IN LUNG BASES IN CT ABD TECHNIQUE: Axial computed tomography images of the chest without intravenous contrast. This CT exam was performed using one or more of the following dose reduction techniques: automated exposure control, adjustment of the mA and/or kV according to patient size, and/or use of iterative reconstruction technique. COMPARISON: No relevant prior studies available. FINDINGS: LUNGS AND PLEURAL SPACES: Mild lung emphysema. 4 mm nodule of the posterior right lower lobe. Repeat CT in 6 months is recommended. Previously described potential ground-glass attenuation of the lung bases appear to be atelectasis or scarring. Otherwise, no focal consolidation. No pneumothorax. No significant effusion. HEART: Unremarkable. No cardiomegaly. No significant pericardial effusion. No significant coronary artery calcifications. MEDIASTINUM: A few prominent mediastinal lymph nodes measuring up to 6 mm. Small esophageal hiatal hernia. BONES/JOINTS: Unremarkable. No acute fracture. No dislocation. SOFT TISSUES: Unremarkable. VASCULATURE: Scattered calcified atherosclerotic disease of aorta. No thoracic aortic aneurysm. LYMPH NODES: See above. CT/Chest without Contrast IMPRESSION: 1. Small esophageal hiatal hernia. 2. Previously described potential ground-glass attenuation of the lung bases a ppear to be atelectasis or scarring. Otherwise, no focal consolidation. Reading Location: [facility]
[2024-11-21 12:08] LABS: Bedside Glucose 145 mg/dL (74-106)
--- NOTE | 2024-11-21 13:30 | CASEMGMT ---
EDMUND CLIFTON Readmission Note Previous Admission: 10/30/24-11/02/24 Diagnosis: GIB DC Disposition:Home Current Admission: Admitted 11/20/24 Current Diagnosis: suspected pna, resp insuff Pt on index admission had colonoscopy and 2 bleeding angidysplastic leasions were treated with APC and 1- 7mm polyp was removed. Pt was dc'd home with her grandson to stay with her. Pt represented to ER with a fall, cough and SOB. EDMUND CLIFTON into pt room, pt just seen ambulating halls with therapy without device. Pt sitting up in chair on RA in no distress. Pt states her grandson was staying with her but now he has stopped as she is able to be alone. Pt states she feels safe at home. She has a FWW but doesn't use it. Pt reports she was taking her medications as ordered. Pt has followed up with her PCP as well as 's office since last hospitalization. Pt states she feels so much better than when she came in yesterday. Pt denies any homegoing needs. DC Plan: Home
[2024-11-21] MEDS: guaiFENesin/D-Methorphan TAB.SR.12H 2 TABLET PO ×2 (15:48→19:34)
[2024-11-21] MEDS: CLARIFY ORDER 1 EACH NOTE (15:48)
[2024-11-21 16:39] LABS: Bedside Glucose 122 mg/dL (74-106)
[2024-11-21] MEDS: Atorvastatin Calcium 10 MG Tablet 5 MG PO (19:33)
[2024-11-21 21:06] LABS: Bedside Glucose 81 mg/dL (74-106)
[2024-11-22] VITALS (7 sets, daily range): BP systolic 127–138; BP diastolic 53–64; PULSE 69–85; RESP 16–18; TEMP 36.5–36.9; O2SAT 98–100; BMI 35.0
[2024-11-22] MEDS: MELATONIN 3 MG TABLET PO (00:46)
[2024-11-22 06:22] LABS: Bedside Glucose 127 mg/dL (74-106)
[2024-11-22 07:57] LABS: Phosphorus 3.2 mg/dL (2.7-4.5)
[2024-11-22] MEDS: Iron Polysaccharide Complex 150 MG CAPSULE PO (09:26)
[2024-11-22] MEDS: Aspirin E.C. 81 MG Tablet PO (09:26)
[2024-11-22] MEDS: Lactobacillis Acidophilus 1 CAP PO (09:26)
[2024-11-22] MEDS: Losartan Potassium 25 MG Tablet PO (09:26)
[2024-11-22] MEDS: Vibegron 75 MG TABLET PO (09:26)
[2024-11-22] MEDS: Ascorbic Acid 500 MG Tablet 1000 MG PO (09:26)
[2024-11-22] MEDS: Magnesium Chloride 64 MG Delay Rel.Tablet 128 MG PO (09:26)
[2024-11-22] MEDS: Zinc Sulfate 50 mg zinc (220 mg) ORAL capsule PO (09:27)
[2024-11-22] MEDS: guaiFENesin/D-Methorphan TAB.SR.12H 2 TABLET PO (09:27)
[2024-11-22] MEDS: Pantoprazole Sodium 40 MG Tablet PO (09:27)
[2024-11-22] MEDS: Cholecalciferol (Vit D3) 125 MCG CAPSULE (5,000 UNITS) PO (09:27)
--- NOTE | 2024-11-22 10:20 | PCM.DC ---
Discharge Instructions Diet Discharge Diet: Low fat / Low cholesterol, 1800 Calorie Control Diet and 2000 mg Sodium Diet DC O2, CPAP, BIPAP needs Home O2 Discharge instructions: No Dressing / Incision Discharge Activity: Return to Normal Activity Weight Bearing Status: Weight bearing as tolerated Dressing / Incision Call your doctor if you observe: Fever of 101 or Higher, Coldness, Increased Pain, Numbness or Tingling, Change in Color, Inability to urinate, Inability to have a bowel movement, Shortness of breath, Dizziness, Fainting spells, Swelling in the ankles, Chest pain, Prolonged hiccupping, Increased palpitations (irregular heartbeat) and Calf discomfort Follow Up Care When: IN 2 WEEKS Test Results: Test results from this visit will be discussed in further detail at your follow-up appointment, if applicable. Discharge Plan Admission Admit Date/Time: 11/20/24 21:59 Primary Reason for Your Visit: Generalized weakness Attending Provider: Ac Simms Primary Care Provider: Terrie Blanton HUMANE OFFICER Consulting Providers: Sushant Peralta Discharge Orders/Prescriptions Prescriptions: Continued methocarbamol 750 mg tablet 750 mg PO TID PRN (Reason: muscle spasms) Linzess 145 mcg capsule 145 mcg PO QAM Qty: 90 1RF simvastatin [Zocor] 10 MG tablet 10 mg PO QHS omeprazole 40 MG capsule,delayed release(DR/EC) 40 mg PO DAILY aspirin [Aspir-Low] 81 MG tablet,delayed release (DR/EC) 81 mg PO DAILY Patient Comments: WAS TOLD TO STOP 3 DAYS BEFORE valsartan [Diovan] 40 MG tablet 40 mg PO BID alendronate [Fosamax] 70 mg tablet 70 mg PO .QOWK furosemide 20 mg tablet 20 mg PO DAILY PRN (Reason: swelling) duloxetine 30 mg capsule,delayed release(DR/EC) 30 mg PO DAILY mirabegron [Myrbetriq] 25 mg tablet extended release 24 hr 25 mg PO DAILY sennosides-docusate sodium [Senexon-S] 8.6-50 mg tablet 2 tab PO DAILY (DME) pen needle, diabetic [BD Luz Elena 2nd Gen Pen Needle] 32 gauge x 5/32 needle MISCELLANEOUS UD magnesium oxide 400 mg (241.3 mg magnesium) tablet 400 mg PO DAILY iron polysac-iron heme polypep 28 mg tablet 1 tab PO DAILY Qty: 60 0RF Changed insulin aspart U-100 [Novolog FlexPen U-100 Insulin] 100 UNITS/ML insulin pen 20 unit subcut TIDCM 30 Days Qty: 0 0RF Patient Comments: varies between 24-28 TID per pt Rx Instructions: Hold if glucose less than 130 mg/dl insulin glargine [Lantus Solostar U-100 Insulin] 100 UNITS/ML insulin pen 25 unit subcut DINNER 30 Days Qty: 0 0RF Patient Comments: per pt 35-38 units depending on the day Rx Instructions: Hold if glucose less than 130 mg/dl Referrals / Follow Up: Terrie Blanton NP, HUMANE OFFICER-C [Primary Care Provider] - Trerie Blanton [facility] OFFICER-C [[facility]] - Disposition Disposition (needs filled in before D/C Order can be placed): Home, Self Care
[2024-11-22 11:31] LABS: Bedside Glucose 257 mg/dL (74-106)
--- NOTE | 2024-11-22 12:01 | PCM.DC.SUM ---
Providers Date of Admission: 11/20/24 Date of Discharge: 11/22/24 Primary Care Physician: ROSENDO Perea Reason For Visit: SUSPECTED PNEUMONIA, RESPIRATORY INSUFFICIENCY Diagnosis Discharge Diagnosis (1) Pneumonia: Status: Acute Code(s): J18.9 - Pneumonia, unspecified organism Qualifiers: Pneumonia type: due to unspecified organism Laterality: bilateral Lung location: unspecified part of lung Qualified Code(s): J18.9 - Pneumonia, unspecified organism (2) Respiratory insufficiency: Status: Acute Code(s): R06.89 - Other abnormalities of breathing (3) Hypoglycemia associated with type 2 diabetes mellitus: Status: Acute Code(s): E11.649 - Type 2 diabetes mellitus with hypoglycemia without coma (4) Fall at home: Status: Acute Code(s): W19.XXXA - Unspecified fall, initial encounter; Y92.009 - Unspecified place in unspecified non-institutional (private) residence as the place of occurrence of the external cause Qualifiers: Encounter type: initial encounter Qualified Code(s): W19.XXXA - Unspecified fall, initial encounter; Y92.009 - Unspecified place in unspecified non-institutional (private) residence as the place of occurrence of the external cause (5) Generalized weakness: Status: Acute Code(s): R53.1 - Weakness (6) Ambulatory dysfunction: Status: Acute Code(s): R26.2 - Difficulty in walking, not elsewhere classified (7) Decompression injury of spinal cord: Status: Acute Code(s): T70.3XXA - Caisson disease [decompression sickness], initial encounter (8) History of lower GI bleeding: Status: Acute Code(s): Z87.19 - Personal history of other diseases of the digestive system (9) Obesity (BMI 30-39.9): Status: Acute Code(s): E66.9 - Obesity, unspecified Plan 74-year-old female is being admitted for pain in the bilateral calfs, unwitnessed fall on the day before admission after missing walker and falling forward unknown LOC. Denies head injury. Complain of generalized weakness and decreased oral intake in the last few days. About 12 pack years of smoking 1. Bilateral atelectasis, generalized weakness, accompanied by low-grade fever of 100.1 ?F present on admission - Admit to the general medical floor. Portable frontal view of chest x-ray individually reviewed, no active cardiopulmonary disease but little underventilated. CT abdomen shows lower lung goldsmith has areas of groundglass opacification. Urinary antigens are negative. Triple PCR for SARS-CoV-2, flu and RSV are negative. CT chest was done and reviewed. Shows mild lung emphysema. Will monitor nodule in posterior right lower lobe. No groundglass explanation but patient has atelectasis or scarring otherwise no focal consolidation. UA is negative and she did not have burning micturition. I will discontinue antibiotic. Continue incentive spirometry, Mucinex DM and Pep 11/22: Patient did not have any fever. Vitals are normal acceptable range. Patient is doing discharge. Her weakness much improved. Advised to continue incentive spirometry for 1 week 2. Hypoglycemia of 48 g/dL present on admission with history of DM-2; on insulin glargine 35 units SQ at bedtime plus insulin aspart 3 times daily . Hypoglycemia resolved. A1c 7.4. Glucose 145 Tews 170. 11/22: Hypoglycemia resolved Humalog and Lantus insulin both decreased and advised to continue Accu-Cheks AC and at bedtime with holding parameter, to hold both Humalog and Lantus insulin if glucose less than 130 mg/dl 4. Acute debility due to C6-C7 surgery for decompression-patient denied for to me but said she could not get out of her couch. PT/OT and Case Management consult. 5. Recent admission here from October 30, 2024 to November 02, 2024 with LGIB with large stool burden on CT; s/p evaluation by gastroenterology with colonoscopy done on November 01, 2024 that revealed one 7 mm polyp at the splenic flexure removed with jumbo cold forceps resected and retrieved along with 2 bleeding colonic angiodysplastic lesions treated with argon plasma coagulation in the setting of previous end-to-end colocolonic anastomosis characterized by healthy-appearing mucosa amplifying the pathology of #1 - #4 - Noted. Patient has no evidence of active bleeding at this time. 6. Obesity; with a BMI of 35.2 this admission adding to the burden of disease outlined from #1 - #5 - Weight loss will be recommended. Check TSH. This complicates her case and may hamper recovery. 7. Essential hypertension; on valsartan and as needed furosemide daily - Stable with blood pressure of 148/59 mmHg present on admission. Continue home regimen as previous plus give hydralazine IV as needed for systolic blood pressure greater than 160 mmHg. 8. Hyperlipidemia; on simvastatin - Resume statin and check lipid profile. 9. History of atrial fibrillation - Stable with the patient noted to be in NSR on admission. 10. History of diverticulitis - Noted with no evidence of recurrence on CT this admission. 11. History of colorectal cancer; s/p resection in remission since 2018 - Noted. 12. History of Right breast cancer; s/p chemotherapy and radiation - Noted. 13 Depression; previously on duloxetine (currently on hold) - We we will continue to hold this agent as patient systemics or feel like a zombie. 14. History of heart murmur - Noted. 15. History of iron deficiency anemia; on oral iron supplement - Stable with hemoglobin of 10 g/dL and MCV of 85.1 fL (up from 9.1 g/dL last admission on November 02, 2024). 16. Overactive bladder; on mirabegron - Continue mirabegron as before. 17. 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; on linaclotide plus senna 2 tabs daily - Maintain current treatment. 18. GERD; on omeprazole - Resume PPI as previous. 19. History of muscle spasms; on methocarbamol 3 times daily as needed - Continue current therapy. 20. Osteoporosis; on alendronate - Restart alendronate as outpatient. 21. OA; with recent C6-C7 surgery for decompression - Noted. Given acetaminophen for pain or fever as outlined in #1. 22. DVT prophylaxis - SCD's Discharge medication reconciliation done. Discharge follow-up instructions completed. Discharge process discussed with the patient and all questions were answered to patient's satisfaction. Follow with PCP in 1 to 2 weeks Total time spent, exact 35 minutes on discharge meds reconciliation, examination, coordination of care with nurses and ancillary staff, review of imaging and blood test and discussion with the patient on follow-up instructions. Medications at Discharge Home Medications aspirin 81 mg tablet,delayed release (Aspir-Low) 81 mg PO DAILY HEART 09/06/17 omeprazole 40 mg capsule,delayed release 40 mg PO DAILY REFLUX 09/06/17 simvastatin 10 mg tablet (Zocor) 10 mg PO QHS CHOLESTEROL 09/06/17 valsartan 40 mg tablet (Diovan) 40 mg PO BID BP 09/06/17 magnesium oxide 400 mg (241.3 mg magnesium) tablet 400 mg PO DAILY muscle spasm 10/30/24 iron polysaccharide complex-iron heme polypeptide 28 mg tablet 1 tab PO DAILY #60 tabs 11/02/24 alendronate 70 mg tablet (Fosamax) 70 mg PO .QOWK osteoporosis 11/16/24 linaclotide 145 mcg capsule (Linzess) 145 mcg PO QAM #90 caps 11/16/24 methocarbamol 750 mg tablet 750 mg PO TID PRN muscle spasms 11/16/24 duloxetine 30 mg capsule,delayed release 30 mg PO DAILY 11/20/24 furosemide 20 mg tablet 20 mg PO DAILY PRN swelling 11/20/24 mirabegron 25 mg tablet,extended release 24 hr (Myrbetriq) 25 mg PO DAILY 11/20/24 pen needle, diabetic 32 gauge x /32 (BD Luz Elena 2nd Gen Pen Needle) 11/20/24 sennosides 8.6 mg-docusate sodium 50 mg tablet (Senexon-S) 2 tab PO DAILY 11/20/24 insulin aspart U-100 100 unit/mL (3 mL) subcutaneous pen (Novolog FlexPen U-100 Insulin aspart) 20 unit (0.2 mL) subcut TIDCM DIABETES 30 days #0 mL 11/22/24 insulin glargine 100 unit/mL (3 mL) subcutaneous pen (Lantus Solostar U-100 Insulin) 25 unit (0.25 mL) subcut DINNER DIABETES 30 days #0 mL 11/22/24 Physical Exam Narrative Seen and examined. No acute issues. Patient feels a strong. Patient did well on physical therapy. Ready to go home. Denies history of chronic lung disease but has history of smoking 12-14 years less than 1 pack/day in her young days. She started in her 20s. Denies burning micturition. Bowel movement is good. Was recently discharged on 11/02 after acute GI bleed and had colonoscopy and polypectomy. Patient had cervical spine surgery in July 2024. Denies history of DVT or pulm Physical exam General: Alert, Oriented x3, Cooperative HEENT: Atraumatic, PERRLA, EOMI, Normocephalic Oral: No Gingival or Mucosal Lesions/ Ulcerations Neck: Supple, No JVD, Negative Carotid Bruits. Cervical spine surgery well-healed Chest wall/Lungs: Air entry equal in bilateral lung bases. No crepitation/rhonchi Cardiovascular: Regular rate, Regular Rhythm, Normal S1, Normal S2, No M/G/R Abdomen: Bowel Sounds Present, Soft, Non Tender, Non-Distended : No dysuria. No renal angle tenderness. No suprapubic tenderness. Extremities: No edema, Capillary Refill Less than 3 Seconds Skin: No rashes, No breakdown Musculoskeletal: No Tenderness to Palpation of Joints or Extremities Neurological: Cranial nerves II-XII grossly intact, DTR 2+/4. No acute focal neurological deficit. Psych/Mental Status: Normal Affect, Appropriate. Weight / BMI Weight Weight: 185 lb 10.067 oz Body Mass Index (BMI) 35.0 ABG / Lab / Microbiology Data 11/21/24 03:51 11/21/24 03:51 Laboratory: Laboratory Results - last 24 hr 11/21/24 11:14: POC Glucose 145 H 11/21/24 16:21: POC Glucose 122 H 11/21/24 20:43: POC Glucose 81 11/22/24 06:03: POC Glucose 127 H 11/22/24 06:54: Phosphorus 3.2 11/22/24 11:10: POC Glucose 257 H Microbiology: Microbiology 11/21/24 03:20 Urine, Clean Catch Legionella Antigen - Final 11/21/24 03:20 Urine, Clean Catch Streptococcus pneumoniae Antigen (M - Final 11/20/24 19:00 Mucosa - Nose SARS-CoV-2, Influenza & RSV (PCR) - Final D/C Instructions Discharge Diet: Low fat / Low cholesterol, 1800 Calorie Control Diet and 2000 mg Sodium Diet Weight Bearing Status: Weight bearing as tolerated Call your doctor if you observe: Fever of 101 or Higher, Coldness, Increased Pain, Numbness or Tingling, Change in Color, Inability to urinate, Inability to have a bowel movement, Shortness of breath, Dizziness, Fainting spells, Swelling in the ankles, Chest pain, Prolonged hiccupping, Increased palpitations (irregular heartbeat) and Calf discomfort DC O2, CPAP, BIPAP Needs Home O2 Discharge instructions: No When: IN 2 WEEKS Meaningful Use Info Meaningful Use Meaningful Use Diagnoses (Choose all that apply): None applicable Ischemic Stroke Statin Dosing Therapy Reference: STATIN DOSE THERAPY REFERENCE: * Patients > 75 years receive moderate or high dose statin therapy. * Patients 75 years or YOUNGER should receive HIGH intensity statin dose unless contraindicated. You will be required to document reason for non-treatment if statin daily dose does not meet guidelines. HIGH DOSE STATIN THERAPY DAILY Atorvastatin > than or = to 40 mg Rosuvastatin > than or = to 20 mg Amlodipine + Atorvastatin > than or = to 2.5/40 mg Ezetimibe + Simvastatin 10/80 mg Simvastatin 80mg Discharge Plan Admission Admit Date/Time: 11/20/24 21:59 Primary Reason for Your Visit: Generalized weakness Attending Provider: Ac Simms Primary Care Provider: Terrie Blanton INSTRUCTIONAL TECHNOLOGIST Consulting Providers: Sushant Peralta Instructions Additional Instructions / Restrictions: Follow-up with PCP to be scheduled PFT. Discharge Orders/Prescriptions Prescriptions: Continued methocarbamol 750 mg tablet 750 mg PO TID PRN (Reason: muscle spasms) Linzess 145 mcg capsule 145 mcg PO QAM Qty: 90 1RF simvastatin [Zocor] 10 MG tablet 10 mg PO QHS omeprazole 40 MG capsule,delayed release(DR/EC) 40 mg PO DAILY aspirin [Aspir-Low] 81 MG tablet,delayed release (DR/EC) 81 mg PO DAILY Patient Comments: WAS TOLD TO STOP 3 DAYS BEFORE valsartan [Diovan] 40 MG tablet 40 mg PO BID alendronate [Fosamax] 70 mg tablet 70 mg PO .QOWK furosemide 20 mg tablet 20 mg PO DAILY PRN (Reason: swelling) duloxetine 30 mg capsule,delayed release(DR/EC) 30 mg PO DAILY mirabegron [Myrbetriq] 25 mg tablet extended release 24 hr 25 mg PO DAILY sennosides-docusate sodium [Senexon-S] 8.6-50 mg tablet 2 tab PO DAILY (DME) pen needle, diabetic [BD Luz Elena 2nd Gen Pen Needle] 32 gauge x 5/32 needle MISCELLANEOUS UD magnesium oxide 400 mg (241.3 mg magnesium) tablet 400 mg PO DAILY iron polysac-iron heme polypep 28 mg tablet 1 tab PO DAILY Qty: 60 0RF Changed insulin aspart U-100 [Novolog FlexPen U-100 Insulin] 100 UNITS/ML insulin pen 20 unit subcut TIDCM 30 Days Qty: 0 0RF Patient Comments: varies between 24-28 TID per pt Rx Instructions: Hold if glucose less than 130 mg/dl insulin glargine [Lantus Solostar U-100 Insulin] 100 UNITS/ML insulin pen 25 unit subcut DINNER 30 Days Qty: 0 0RF Patient Comments: per pt 35-38 units depending on the day Rx Instructions: Hold if glucose less than 130 mg/dl Referrals / Follow Up: Terrie Blanton NP, INSTRUCTIONAL TECHNOLOGIST-C [Primary Care Provider] - Terrie Blanton INSTRUCTIONAL TECHNOLOGIST-C [[facility]] - Disposition Disposition (needs filled in before D/C Order can be placed): Home, Self Care Charges/Coding Visit Charges Inpatient E&M: 54109 Disch Hosp >30min
[2024-11-22] MEDS: Insulin Lispro 100 UNIT/ML INSULN.PEN SC (12:32)
[2024-11-22] MEDS: Insulin Lispro 100 UNIT/ML INSULN.PEN 16 UNIT SC (12:32)
== END 2024-11-22 14:15 | disposition home or self-care (01) | DRG 637 ==
LOC: ED 21:31 → MS3 22:36
PROVIDERS: Admitting Provider Internal Medicine; Emergency Provider Emergency Medicine; PCP Registered Nurse; Referring Provider Emergency Medicine; Visit Provider Internal Medicine
DX: E11.649 Type 2 diabetes mellitus with hypoglycemia without coma (principal); J18.9 Pneumonia, unspecified organism; G95.20 Unspecified cord compression; J98.11 Atelectasis; D50.9 Iron deficiency anemia, unspecified; E11.65 Type 2 diabetes mellitus with hyperglycemia; E66.9 Obesity, unspecified; J43.9 Emphysema, unspecified; I10 Essential (primary) hypertension; F10.90 Alcohol use, unspecified, uncomplicated; K59.04 Chronic idiopathic constipation; K21.9 Gastro-esophageal reflux disease without esophagitis; Z79.4 Long term (current) use of insulin; M62.838 Other muscle spasm; M47.9 Spondylosis, unspecified; W19.XXXA Unspecified fall, initial encounter; R53.81 Other malaise; Z68.35 Body mass index [BMI] 35.0-35.9, adult; Z87.891 Personal history of nicotine dependence; R09.02 Hypoxemia; R26.89 Other abnormalities of gait and mobility; N32.81 Overactive bladder; M81.0 Age-related osteoporosis without current pathological fracture; R53.1 Weakness; Z79.83 Long term (current) use of bisphosphonates; Z86.16 Personal history of COVID-19; Z11.52 Encounter for screening for COVID-19; Z88.8 Allergy status to other drugs, medicaments and biological substances; Z79.899 Other long term (current) drug therapy; Z85.048 Personal history of other malignant neoplasm of rectum, rectosigmoid junction, and anus; Z85.3 Personal history of malignant neoplasm of breast; Z92.3 Personal history of irradiation; Z92.21 Personal history of antineoplastic chemotherapy; R01.1 Cardiac murmur, unspecified; R06.89 Other abnormalities of breathing; Y92.009 Unspecified place in unspecified non-institutional (private) residence as the place of occurrence of the external cause; Z87.19 Personal history of other diseases of the digestive system; Z99.89 Dependence on other enabling machines and devices
CPT/HCPCS: 36415; 70450; 71045; 71250; 72125; 74176; 80053; 81001; 82962; 83036; 83605; 83735; 84100; 84443; 85025; 87449; 87631; 93005; 93970; 94668; 97161; 97165; 99252; 99285; A4216; G0463

== ENCOUNTER → 2024-12-28 | Outpatient (CLI) | payer MEDICARE, OTHER, SELFPAY ==
[2024-12-28 11:13] LABS: Absolute Lymphocyte Count 2.19 X10^3/uL (0.83-4.51); Absolute Neutrophil Count 2.3 X10^3/uL (2.0-7.7); Basophil# 0.04 X10^3/uL; Basophil% 0.8 % (0-1); Eosinophil# 0.15 X10^3/uL; Hematocrit 29.5 % (37-47); Hemoglobin 9.9 g/dL (12.0-15.0); Lymphocyte # 2.19 X10^3/ul (0.83-4.51); Lymphocyte % 43.1 % (19-41); Mean Corp Hgb Conc 33.6 g/dL (32-36); Mean Corpuscular Volume 86.5 fL (81-99); Mean Platelet Vol. 8.2 fl (6.2-12.0); Monocyte# 0.39 X10^3/uL; Monocyte% 7.7 % (0-10); NRBC Flagged by Analyzer 0 % (0-5); Neutrophil % 45.2 % (47-70); Platelet Count 290 K/mm3 (150-450); RBC Distribution Width CV 15.8 % (11.6-14.6); RBC Distribution Width SD 50.1 fl (35.1-43.9); Red Blood Count 3.41 M/mm3 (4.2-5.4); White Blood Count 5.1 K/mm3 (4.4-11.0)
[2024-12-28 12:18] LABS: Iron 69 ug/dL (50-170); Iron Binding Capacity,Total 443 ug/dL (250-450); Iron Binding Capacity,Unsat 374 ug/dL (228-428)
== END | disposition home or self-care (01) ==
LOC: LAB 10:27
PROVIDERS: PCP Registered Nurse; Referring Provider Nurse Practitioner Acute Care; Visit Provider Nurse Practitioner Acute Care
DX: D50.0 Iron deficiency anemia secondary to blood loss (chronic) (principal)
CPT/HCPCS: 36415; 83540; 83550; 85025

== ENCOUNTER 2025-06-22 14:05 | Emergency (ER) | payer MEDICARE, OTHER, SELFPAY ==
[2025-06-22] VITALS (20 sets, daily range): BP systolic 111–186; BP diastolic 53–87; PULSE 79–103; RESP 12–27; TEMP 36.1–36.6; O2SAT 90–99; BMI 36.8
[2025-06-22] MEDS: 0.9% Normal Saline (1000mL) 1,000 ML 999 ML IV (14:29)
[2025-06-22 14:36] LABS: Hematocrit 26.2 % (37-47); Hemoglobin 8.1 g/dL (12.0-15.0); Immature Granulocytes Count 0.030 X10^3/uL (0.0-0.0); Mean Corp Hgb Conc 30.9 g/dL (32-36); Mean Corpuscular Volume 84.5 fL (81-99); Mean Platelet Vol. 8.5 fl (6.2-12.0); NRBC Flagged by Analyzer 0 % (0-5); Platelet Count 425 K/mm3 (150-450); RBC Distribution Width CV 15.6 % (11.6-14.6); RBC Distribution Width SD 47.8 fl (35.1-43.9); Red Blood Count 3.10 M/mm3 (4.2-5.4); White Blood Count 7.5 K/mm3 (4.4-11.0)
[2025-06-22 15:15] LABS: AST(SGOT) 53 U/L (<=31); Alanine Aminotransfer ALT/SGPT 31 U/L (<=34); Albumin, Serum 4.0 g/dL (3.4-4.8); Alkaline Phosphatase 67 U/L (35-104); Anion Gap 14 (5-15); BUN 13 mg/dL (4-19); BUN/Creat Ratio 12.9 RATIO (10-20); Calcium,Total 9.0 mg/dL (7.6-11.0); Carbon Dioxide 22.4 mmol/L (21.0-32.0); Chloride 101 mmol/L (98-108); Estimated Creatinine Clearance 49.90 ml/min (50-250); Globulin 3.6 g/dL (2.2-4.2); Glucose 116 mg/dL (70-99); Lipase 31 U/L (13-75); Potassium 4.0 mmol/L (3.3-5.1)
--- NOTE | 2025-06-22 15:17 | CT_ITS ---
PROCEDURE: CTA ABD/PELVIS W/WO CONTRAST 06/22/2025 REASON FOR EXAM: GI BLEED, LLQ PAIN TECHNIQUE: Procedure Code: [id number] Modality: CT Procedure: CTA ABD/PELVIS W/WO CONTRAST Multiplanar Sagittal and Coronal images were obtained. CONTRAST: Isovue 370 VOLUME: 98 mL One or more dose reduction techniques were used (e.g., Automated exposure control, adjustment of the mA and/or kV according to patient size, use of iterative reconstruction technique). RADIATION DOSE SUMMARY: CTDlvol: 19.42 mGy DLP: 1043.38 mGycm COMPARISON: CT abdomen and pelvis November 20, 2024. FINDINGS: Aorta: No aneurysm. Iliac Arteries: Patent Celiac: Patent. SMA: Patent. BRADEN : Patent. Right Renal: Patent. Left Renal: Patent Extravascular Findings: Atelectasis are clear. No cardiomegaly. The liver, spleen, gallbladder, kidneys, pancreas and bladder are unremarkable. The uterus is within normal limits. A 1.9 cm adenoma in the left adrenal gland. The right adrenal gland is unremarkable. No free air or free fluid. No bowel wall thickening. Anastomosis at the rectosigmoid junction. A 2.3 x 5.7 x 4.9 cm periumbilical hernia contains peritoneal fat and the transverse colon. Multilevel degenerate changes of the spine. No acute bony abnormalities. CT/CTA Abd/Pelvis W/WO Contrast IMPRESSION: Unremarkable CTA of the abdomen without contrast extravasation or abdominopelvi c hematoma. No acute abdominopelvic abnormalities. Reading Location: [facility]
--- NOTE | 2025-06-22 17:02 | EX.ED.DYSGE1 ---
HPI History of Present Illness Chief Complaint: GI Bleed Narrative Narrative: Patient is a 74-year-old female with past medical history of GI bleed, UTI, depression, colorectal cancer, hypertension who presented to the emergency department the chief complaint of abnormal labs and low hemoglobin. According the patient she was scheduled to have injections in her neck and states that they noted that her hemoglobin dropped and therefore they sent her here to be further evaluated. Patient states that she has been having intermittent dark stools on and off for a significant mount time. She states that she is not on any blood thinning medications. States that she had scope done by Dr. Glez in the past and had polyps removed. Patient otherwise feels overall well just slightly fatigued she states. [facility] Medical History History of lower GI bleeding Decompression injury of spinal cord Skin cancer Kidney stones Hypoglycemia Blood transfusion during current hospitalisation UTI (urinary tract infection) Bone fracture Breast cancer Colorectal cancer Cancer Depression Diabetes Kidney disease GERD (gastroesophageal reflux disease) Former smoker Atrial fibrillation Hypertension Home Medications ?Medication ?Instructions ?Recorded ?Last Taken ?Type aspirin 81 mg tablet,delayed 81 mg PO DAILY HEART 09/06/17 Unknown History release (Aspir-Low) omeprazole 40 mg capsule,delayed 40 mg PO DAILY REFLUX 09/06/17 09/13/17 06:00 History release simvastatin 10 mg tablet (Zocor) 10 mg PO QHS CHOLESTEROL 09/06/17 Unknown History valsartan 40 mg tablet (Diovan) 40 mg PO BID BP 09/06/17 09/13/17 06:00 History magnesium oxide 400 mg (241.3 mg 400 mg PO DAILY muscle spasm 10/30/24 Unknown History magnesium) tablet iron polysaccharide complex-iron 1 tab PO DAILY #60 tabs 11/02/24 Unknown Rx heme polypeptide 28 mg tablet alendronate 70 mg tablet (Fosamax) 70 mg PO .QOWK osteoporosis 11/16/24 Unknown History linaclotide 145 mcg capsule 145 mcg PO QAM #90 caps 11/16/24 Unknown Rx (Linzess) duloxetine 30 mg capsule,delayed 30 mg PO DAILY 11/20/24 Unknown History release furosemide 20 mg tablet 20 mg PO DAILY PRN swelling 11/20/24 Unknown History mirabegron 25 mg tablet,extended 25 mg PO DAILY 11/20/24 Unknown History release 24 hr (Myrbetriq) pen needle, diabetic 32 gauge x 11/20/24 Unknown History (BD Luz Elena 2nd Gen Pen Needle) insulin aspart U-100 100 unit/mL 20 unit (0.2 mL) subcut TIDCM 11/22/24 Unknown Rx (3 mL) subcutaneous pen (Novolog DIABETES 30 days #0 mL FlexPen U-100 Insulin aspart) insulin glargine 100 unit/mL (3 25 unit (0.25 mL) subcut DINNER 11/22/24 Unknown Rx mL) subcutaneous pen (Lantus DIABETES 30 days #0 mL Solostar U-100 Insulin) pantoprazole 40 mg tablet,delayed 40 mg PO DAILY 30 days #40 tabs 06/22/25 Unknown Rx release Allergy/AdvReac Type Severity Reaction Status Date / Time celecoxib (From Celebrex) Allergy Hives Verified 06/22/25 14:06 ramipril Allergy Hives Verified 06/22/25 14:06 rofecoxib (From Vioxx) Allergy Hives Verified 06/22/25 14:06 letrozole (From Femara) AdvReac Pain in Verified 06/22/25 14:06 joints Family History Father CVA (cerebral vascular accident), Onset Age: 39 Sister Breast cancer Diabetes Mother Thyroid disorder Brother Arthritis Colon cancer Diabetes Mental disorder Psychiatric care CVA (cerebral vascular accident) Surgical History History of carpal tunnel release S/P cervical spinal fusion Social History Smoking Status: Former smoker alcohol intake: current details: wine substance use type: does not use ROS ROS ED ROS Narrative Constitutional: Denies any fevers or chills Cardiovascular: Denies chest pain Respiratory: Denies coughing wheezing shortness of breath Abdomen: Denies nausea vomiting diarrhea complains of dark stools as noted above : Denies any urinary symptoms Neurological: Denies any numbness, weakness, tingling Musculoskeletal: Denies any back pain Skin: Denies any rashes or lesions EXAM Physical Exam Narrative Exam Narrative: General: Patient lying in bed rest comfortably did not appear to be in acute distress Head: Atraumatic, normocephalic Eyes: PERRL bilaterally, EOMI bilaterally, no conjunctival injection noted Neck: Soft, supple, trachea midline Cardiovascular: Patient tachycardic with a regular rhythm Respiratory: Clear to auscultation bilaterally Abdomen: Soft, nondistended, tender to palpation left lower quadrant no rebound or guarding exam Rectal: Brown stool noted on exam no loree blood no black stools noted Extremities: +4/5 strength noted in the bilateral lower extremities Neurological: Patient following commands knew that she was at [facility] year is 2024 Skin: Warm, dry, intact no rashes lesions noted Const Vital Signs: 06/22/25 14:06 06/22/25 14:16 06/22/25 14:31 Temperature 96.9 F L Temperature Source Temporal Pulse Rate 103 H 90 Respiratory Rate 18 16 Respiratory Effort Normal Respiratory Pattern Normal Blood Pressure 186/64 H Blood Pressure Mean 104 Pulse Ox 99 98 Oxygen Delivery Method Room Air 06/22/25 14:45 06/22/25 15:00 06/22/25 15:15 Temperature Temperature Source Pulse Rate 88 86 89 Respiratory Rate 12 14 27 H Respiratory Effort Respiratory Pattern Blood Pressure 130/53 H 129/53 H 133/59 H Blood Pressure Mean 75 74 80 Pulse Ox 97 98 96 Oxygen Delivery Method 06/22/25 15:15 06/22/25 15:30 06/22/25 15:45 Temperature Temperature Source Pulse Rate 87 Respiratory Rate 18 Respiratory Effort Respiratory Pattern Blood Pressure 133/59 H Blood Pressure Mean 80 Pulse Ox 99 90 Oxygen Delivery Method 06/22/25 16:00 06/22/25 16:15 Temperature Temperature Source Pulse Rate 86 86 Respiratory Rate 25 H 20 H Respiratory Effort Respiratory Pattern Blood Pressure Blood Pressure Mean Pulse Ox 90 93 Oxygen Delivery Method MDM MDM MDM Narrative Medical decision making narrative: patient is a 74-year-old female who presented to the emergency department with a chief complaint of low hemoglobin and dark stools. On the differential diagnose includes but not limited to upper GI bleed, dark stool secondary to iron supplementation/Pepto-Bismol, diverticulitis. Once workup is obtained reviewed she will be reevaluated. Patient CBC reviewed and showed a white count of 7.5, hemoglobin is noted at 8.1 is down from 12/28/2024 of 9.9, platelet count had been normal at 425. Patient sodium was 130, Tessman normal 4, creatinine was 0.97. Patient's AST and ALT are 53 and 31 respectively lipase normal 31. Patient's Fe occult was positive therefore added a CTA abdomen pelvis IV contrast. CTA of the abdomen pelvis reviewed and showed no acute findings. Reached out and talked with Dr. Glez who states that patient go home and follow-up in the outpatient setting with repeat labs first thing next week. Patient be given a dose of Protonix here in the emergency department and her prescription will be changed to pantoprazole 40 twice a day for 5 days and then she can take this once daily. She is agreeable to plan all question concerns answered she was discharged home in stable condition Lab Data Labs: Laboratory Results - last 24 hr 06/22/25 14:19 WBC 7.5 RBC 3.10 L Hgb 8.1 L Hct 26.2 L MCV 84.5 MCH 26.1 L MCHC 30.9 L RDW Std Deviation 47.8 H RDW Coeff of Miriam 15.6 H Plt Count 425 MPV 8.5 Immature Gran % (Auto) 0.400 Neut % (Auto) 56.2 Lymph % (Auto) 35.3 Hyde % (Auto) 6.0 Eos % (Auto) 1.6 Baso % (Auto) 0.5 Absolute Neuts (auto) 4.2 Absolute Lymphs (auto) 2.65 Nucleated RBC % 0 Sodium 138 Potassium 4.0 Chloride 101 Carbon Dioxide 22.4 Anion Gap 14 BUN 13 Creatinine 0.97 Estim Creat Clear Calc 49.90 L Est GFR (MDRD) Non-Af 60 BUN/Creatinine Ratio 12.9 Glucose 116 H Calcium 9.0 Total Bilirubin 0.26 AST 53 H ALT 31 Alkaline Phosphatase 67 Total Protein 7.6 Albumin 4.0 Globulin 3.6 Albumin/Globulin Ratio 1.1 Lipase 31 Radiography Diagnostic Testing: Clinical Impression(s) from Imaging Studies Abdomen/Pelvis CTA 06/22/25 15:17 IMPRESSION: Unremarkable CTA of the abdomen without contrast extravasation or abdominopelvic hematoma. No acute abdominopelvic abnormalities. Reading [facility] Discharge Plan Triage Chief Complaint: GI Bleed Other Complaint: Abn Labs ED Provider: Daquan Cisse Dx/Rx/DC Orders Clinical Impression: UGIB (upper gastrointestinal bleed), Fatigue, History of hypertension Prescriptions: New pantoprazole 40 mg tablet,delayed release (DR/EC) 40 mg PO DAILY 30 Days Qty: 40 0RF Rx Instructions: Take 40 mg twice a day for 5 days and then take 40 mg once daily No Action Linzess 145 mcg capsule 145 mcg PO QAM Qty: 90 1RF simvastatin [Zocor] 10 MG tablet 10 mg PO QHS omeprazole 40 MG capsule,delayed release(DR/EC) 40 mg PO DAILY aspirin [Aspir-Low] 81 MG tablet,delayed release (DR/EC) 81 mg PO DAILY Patient Comments: WAS TOLD TO STOP 3 DAYS BEFORE valsartan [Diovan] 40 MG tablet 40 mg PO BID alendronate [Fosamax] 70 mg tablet 70 mg PO .QOWK furosemide 20 mg tablet 20 mg PO DAILY PRN (Reason: swelling) duloxetine 30 mg capsule,delayed release(DR/EC) 30 mg PO DAILY mirabegron [Myrbetriq] 25 mg tablet extended release 24 hr 25 mg PO DAILY (DME) pen needle, diabetic [BD Luz Elena 2nd Gen Pen Needle] 32 gauge x 5/32 needle MISCELLANEOUS UD insulin aspart U-100 [Novolog FlexPen U-100 Insulin] 100 UNITS/ML insulin pen 20 unit subcut TIDCM 30 Days Qty: 0 0RF Patient Comments: varies between 24-28 TID per pt Rx Instructions: Hold if glucose less than 130 mg/dl insulin glargine [Lantus Solostar U-100 Insulin] 100 UNITS/ML insulin pen 25 unit subcut DINNER 30 Days Qty: 0 0RF Patient Comments: per pt 35-38 units depending on the day Rx Instructions: Hold if glucose less than 130 mg/dl magnesium oxide 400 mg (241.3 mg magnesium) tablet 400 mg PO DAILY iron polysac-iron heme polypep 28 mg tablet 1 tab PO DAILY Qty: 60 0RF Primary Care Provider: Terrie Blanton NP Referrals: Terrie Blanton NP, [facility] [Primary Care Provider, Family Practice] Activity Restrictions/Additional Instructions: Stop taking omeprazole and take Protonix 40 mg twice daily for 5 days and then take this once daily. Follow-up with Dr. Glez first thing next week and have your labs repeated. Print Language: Macedonian Disposition Disposition: Home, Self Care
[2025-06-22] MEDS: Pantoprazole Sodium 40 MG in 0.9% Normal Saline (100mL MB+) 100 ML 300 MG IV (18:00)
== END 2025-06-22 18:52 | disposition home or self-care (01) ==
PROVIDERS: Emergency Provider Emergency Medicine; PCP Registered Nurse; Visit Provider Emergency Medicine
DX: K92.2 Gastrointestinal hemorrhage, unspecified (principal); E11.9 Type 2 diabetes mellitus without complications; Z87.891 Personal history of nicotine dependence; R53.83 Other fatigue; I10 Essential (primary) hypertension; K21.9 Gastro-esophageal reflux disease without esophagitis; Z79.899 Other long term (current) drug therapy
CPT/HCPCS: 74174; 80053; 82274; 83690; 85025; 96361; 96365; 99284; Q9967; A4216

== ENCOUNTER → 2025-07-06 | Outpatient (CLI) | payer MEDICARE, OTHER, SELFPAY ==
--- OUTSIDE RECORDS SUMMARY | 2025-07-06 17:35 | XMS RPT_ITS | CCD ---
Author Organization [facility] Inform ion [facility] Care Team Providers Care Camp Housekeeper Name Role Phone MAKKAR, VANESSA K Unavailable Unavailable MAKKAR, VANESSA K Unavailable Unavailable MAKKAR, VANESSA K Unavailable Unavailable MAKKAR, VANESSA K Unavailable Unavailable MARGARITA ARCHER, IVONNE Cerrato Primary Care Physician [phone] ANGELITA IMPORTER EXPORTER-DRYING MACHINE RECEIVER, TERRIE A Primary Care Physi gabriel Ivonne Avila Primary Care Provider [phone] Bandar RN, Sharonda Unavailable Unavailable Marifer Foy MD Unavailable Jade Otoole MD Unavailable Zaheer Bianchi MD Unavailable [phone] Ivonne Avila Primary Care Provider [phone] Ryan ARCHER, Isacc Unavailable ANGELITA IMPORTER EXPORTER-DRYING MACHINE RECEIVER, TERRIE A Attending Un available ANGELITA IMPORTER EXPORTER-DRYING MACHINE RECEIVER, TERRIE A Primary Care Un available ANGELITA IMPORTER EXPORTER-DRYING MACHINE RECEIVER, TERRIE A Attending Un available ANGELITA IMPORTER EXPORTER-DRYING MACHINE RECEIVER, TERRIE A Primary Care Un available ANGELITA IMPORTER EXPORTER-DRYING MACHINE RECEIVER, TERRIE A Attending Un available ANGELITA IMPORTER EXPORTER-DRYING MACHINE RECEIVER, TERRIE A Primary Care Un available LORI CABELLO MD Attending Unavailable ANGELITA IMPORTER EXPORTER-DRYING MACHINE RECEIVER, TERRIE A Primary Care Un available LORI CABELLO MD Attending Unavailable ANGELITA IMPORTER EXPORTER-DRYING MACHINE RECEIVER, TERRIE A Primary Care Un available ANGELITA IMPORTER EXPORTER-DRYING MACHINE RECEIVER, TERRIE A Attending Un available ANGELITA IMPORTER EXPORTER-DRYING MACHINE RECEIVER, TERRIE A Primary Care Un available LORI CABELLO MD Attending Unavailable ANGELITA IMPORTER EXPORTER-DRYING MACHINE RECEIVER, TERRIE A Primary Care Un available ANGELITA IMPORTER EXPORTER-DRYING MACHINE RECEIVER, TERRIE A Attending Un available ANGELITA IMPORTER EXPORTER-DRYING MACHINE RECEIVER, TERRIE A Primary Care Un available ANGELITA IMPORTER EXPORTER-DRYING MACHINE RECEIVER, TERRIE A Attending Un available ANGELITA IMPORTER EXPORTER-DRYING MACHINE RECEIVER, TERRIE A Primary Care Un available ANGELITA IMPORTER EXPORTER-DRYING MACHINE RECEIVER, TERRIE A Attending Un available ANGELITA IMPORTER EXPORTER-DRYING MACHINE RECEIVER, TERRIE A Primary Care Un available ANGELITA IMPORTER EXPORTER-DRYING MACHINE RECEIVER, TERRIE A Attending Un available ANGELITA IMPORTER EXPORTER-DRYING MACHINE RECEIVER, TERRIE A Primary Care Un available ANGELITA IMPORTER EXPORTER-DRYING MACHINE RECEIVER, TERRIE A Attending Un available ANGELITA IMPORTER EXPORTER-DRYING MACHINE RECEIVER, TERRIE A Primary Care Un available ANGELITA IMPORTER EXPORTER-DRYING MACHINE RECEIVER, TERRIE A Attending Un available ANGELITA IMPORTER EXPORTER-DRYING MACHINE RECEIVER, TERRIE A Primary Care Un available CHOUJAA DO, NIDAL Attending Unavailable ANGELITA IMPORTER EXPORTER-DRYING MACHINE RECEIVER, TERRIE A Primary Care Un available Angelita DRYING MACHINE RECEIVER, Terrie A Primary Care Provider Dr. Bruce Mcclain DO Referring Provider [phone] Johny FOREMAN, Dr. Barrera Emergency Provider Angelita RN PROGRESSIVE CARE-C, Terrie Primary Care Provider Un available Robson ARCHER, Dr. Diaz Admit Provider Dr. Joe Chance MD Attending Provider [phone] Robson ARCHER, Dr. Diaz Other Provider Dr. Sushant Olmedo MD Attending Provider Unavail ofelia Kerr MD, Dr. Bronw Attending Provider Dr. Joe Chance MD Referring Provider [phone] Sushant Olmedo MD Other Provider Unavailable Dr. Charles Glez DO Attending Provider Dr. Bruce Mcclain DO Referring Provider Angelita RN PROGRESSIVE CARE-C, Terrie Referring Provider Unava ilable Aidan RN PROGRESSIVE CARE-CImani Attending Provider Aidan RN PROGRESSIVE CARE-CImani Referring Provider Anna FOREMAN, Dr. Mancuso Referring Provider [phone] Anna FOREMAN, Dr. Mancuso Emergency Provider Peralta DO, Dr. Canchola Admit Provider Unavail able Peralta DO, Dr. Canchola Other Provider Unavail able Mendez ARCHER, Dr. Shen Attending Provider Angelita RN PROGRESSIVE CARE-C, [place] Primary Care Provider [phone] Mendez ARCHER, Dr. Shen Other Provider [phone] Angelita CHAND, [facility] Prov ider MARGARITA, IVONNE [place] Primary Care Unavailab eugenio DAVIS, ISACC Attending Unavailable RYAN, ISACC Referring Unavailable MARGARITA, IVONNE [facility] Care Unavailab eugenio DAVIS, ISACC Referring Unavailable MARIFER FOY Attending Unavailable [facility], [facility] LUZ ROMERO Referring Unavailable CHAU HOROWITZ Referring Unavailabl e [facility]GELITA, [facility] Unava ilable BRUNO LARES Referring Unavailable Angelita RN PROGRESSIVE CARE-C, Terrie Referring Provider Unava ilable Aidan RN PROGRESSIVE CARE-CImani Attending Provider Angelita RN PROGRESSIVE CARE-C, [place] Primary Care Provider [phone] Aidan RN PROGRESSIVE CARE-CImani Referring Provider Angelita RN PROGRESSIVE CARE-C, Terrie Referring Provider [phone] Terrie Llanos [facility] Care Unavailab Imani Rodriguez Referring Unavailable Imani Bermudez Attending Unavailable Bartolome Castillo Referring Unavailable Angelita CARMEN [facility] Care Unavailabl e Sushant Peralta Consulting Unavailable Sushnat Peralta Admitting Unavailable Ac Simms Attending Unavailable Angelita RYDER [facility] Unavailab Joe Bonilla Consulting Unavailable Sushant Olmedo Attending Unavailable Johny, Bruce Referring Unavailable Joe Chance Admitting Unavailable Imani Bermudez Attending Unavailable Angelita CARMEN, Terrie Referring Unavailabl e Angelita RN PROGRESSIVE CARE, [facility] Care Unavailabl e Angelita OLS, [place] Primary Care Unavailab le Angelita OLS, Terrie Referring Unavailab le AidanImani ray Attending Unavailable Imani Bermudez Attending Unavailable Angelita OLS, Terrie Referring Unavailab le Angelita RN PROGRESSIVE CARE, [facility] Care Unavailabl e Angelita BRITNI, [place] Primary Care Unavailab le ChanceJoe cummings Consulting Unavailable KitSushant malloy Attending Unavailable Ungalphonso, Remus Referring Unavailable Chance, Joe Admitting Unavailable KitSushant malloy Consulting Unavailable Angelita RYDER, [facility] Unavailab Bartolome Hairston Referring Unavailable Sushant Peralta Attending Unavailable Peralta, Sushant Consulting Unavailable Sushant Peralta Admitting Unavailable Ac Simms Attending Unavailable Ac Simms Consulting Unavailable Angelita RN PROGRESSIVE CARE, [facility] Unavailabl e Angelita OLS, [facility] Care Unavailab le Chance, Joe Attending Unavailable Chance, Joe Consulting Unavailable Ungur, Remus Referring Unavailable Chance, Joe Admitting Unavailable Charles Glez Attending Unavailable Angelita OLS, [facility] Unavailab Kevin Funez Attending Unavailable Joe Chance Referring Unavailable Imani Bermudez Attending Unavailable Angelita RN PROGRESSIVE CARE, [facility] Unavailabl e Imani Bermudez Referring Unavailable CHAU HOROWITZ Admitting Unavailabl e CHAU HOROWITZ Attending Unavailabl e ANGELITA, TERRIE AMBER Primary Care Unava ilable BRUNO LARES Referring Unavailable ANGELITA, TERRIE AMBERLE Primary Care Unava ilable BRUNO LARES Referring Unavailable ANGELITA, TERRIE AMBERLE Primary Care Unava ilable ANGELITA IMPORTER EXPORTER-DRYING MACHINE RECEIVER, TERRIE A Primary Care Un available RON SANTAMARIA DO Attending Unavailable ARNAUD ARCHER, BRUNO FRANK Attending Unavail able ANGELITA IMPORTER EXPORTER-DRYING MACHINE RECEIVER, TERRIE A Primary Care Un available ANGELITA IMPORTER EXPORTER-DRYING MACHINE RECEIVER, TERRIE A Primary Care Un available KATALINA TANNER MD Attending Unavailable ANGELITA IMPORTER EXPORTER-DRYING MACHINE RECEIVER, TERRIE A Primary Care Un available ANGELITA IMPORTER EXPORTER-DRYING MACHINE RECEIVER, TERRIE Seymour Attending Un available ANGELITA IMPORTER EXPORTER-DRYING MACHINE RECEIVER, TERRIE Seymour Attending Un available ANGELITA IMPORTER EXPORTER-DRYING MACHINE RECEIVER, TERRIE A Primary Care Un available CHAU HOROWITZ Attending Unavailabl e MARYBETH, CHAU Au Admitting Unavailabl e ANGELITA, TERRIE PRYOR Primary Care Unava ilable BRUNO LARES Attending Unavailable ANGELITA, TERRIE PRYOR Primary Care Unava ilable ANGELITA, TERRIE SHARONDAEUGENIO Primary Care Unava ilable BRUNO LARES Attending Unavailable ANGELITA, TERRIE SHARONDAEUGENIO Primary Care Unava ilable NAUMOFF, IVONNE ANSHU Primary Care Unavailab BRUNO Santos Referring Unavailable MARGARITA, IVONNE ANSHU Primary Care Unavailab BRUNO Santos Referring Unavailable ANGELITA, TERRIE SHARONDA Primary Care Unava ilable BRUNO LARES Referring Unavailable ANGELITA, TERREI SHARONDAEUGENIO Primary Care Unava ilable BRNUO LARES Referring Unavailable BRUNO LARES Attending Unavailable ANGELITA, TERRIE SHARONDA Primary Care Unava ilable BRUNO LARES Attending Unavailable ANGELITA, TERRIE SHARONDA Primary Care Unava ilable NAUMOFF, IVONNE ANSHU Primary Care Unavailab BRUNO Santos Attending Unavailable BRUNO LARES Referring Unavailable BRUNO LARES Attending Unavailable ANGELITA, TERRIE SHARONDA Primary Care Unava ilable NAUMOFF, IVONNE CASEOME Primary Care Unavailab le NAUMOFF, IVONNE ANSHU Primary Care Unavailab BRUNO Santos Attending Unavailable NAUMOFF, [facility] Primary Care Unavailab le AMERICA, DATINDER S Consulting Unavailable BRUNO LARES Attending Unavailable BRUNO LARES Admitting Unavailable BRUNO LARES Referring Unavailable NAELEANOR, [facility] Primary Care Unavailab BRUNO Santos Referring Unavailable CHAU HOROWITZ Attending Unavailabl e ANGELITA, TERRIE AMBER Primary Care Unava ilable ANGELITA, TERRIE SHARONDA Primary Care Unava ilable CHAU HOROWITZ Referring Unavailabl e MARYBETH, CHAU Au Attending Unavailabl e [facility], [facility] Unava ilable BRUNO LARES Referring Unavailable BRUNO LARES Referring Unavailable BRUNO LARES Attending Unavailable TERRIE GOLDSTEIN Primary Care Unava ilable BRUNO LARES Referring Unavailable TERRIE GOLDSTEIN Primary Care Unava ilable BRUNO LARES Referring Unavailable BRUNO LARES Attending Unavailable TERRIE GOLDSTEIN Primary Care Unava ilable Allergies Allergy Classification Reported Allergen(s) Allergy Type Date of Onset Reaction(s) Facility (20 sources) celecoxib; Translations: [CELECOXIB] Drug Allergy 7 [facility] Other [place] Repository (20 sources) ramipril; Translations: [RAMIPRIL] Drug Allergy 7 [facility] Repository (20 sources) rofecoxib; Translations: [ROFECOXIB] Drug Allergy 7 [facility] Repository (20 sources) ferumoxytol; Translations: [ferumoxytol] Drug Allergy 4 Tenalgia (finding), Other: See Comments [facility] (20 sources) letrozole; Translations: [LETROZOLE] Drug Allergy 8 Other: See Comments [facility] (1 source) letrozole Drug Allergy 5 [facility] Repository Medications Current Medications Medication Drug Class(es) Dates Sig (Normalized) Sig (Original) acetaminophen 500 mg oral tablet (20 sources) Start: 08-10-2024 take 1 mg by mouth every six hours as needed for pain acetaminophen 500 mg oral tablet mg = tab(s), Oral, q6hr, PRN as needed for pain, 0 Refill(s) Start Date: 08/10/24 Status: Ordered Medication Dispense Status: Completed Total Allowed Fills: 1 Fills Dispensed: 0 acetaminophen (T YLENOL) 325 mg cap Take by mouth as needed for pain. Active alendronic acid 70 mg oral tablet (20 sources) Bisphosphonate Start: 05-18-2025 alendronate 70 mg oral tablet Dose : 70 mg = 1 tab(s), Oral, qWeek, # 13 tab(s), 3 Refill(s), Pharmacy: [facility], 157, cm, 03/07/25 11:44:00 EDT, Height, kg, 03/07/25 11:44:00 EDT, Dosing Weight Start Date: 05/18/25 Status: Ordered Medication Dispense Status: Completed Quantity: 13.0 Unit: tab(s) Total Allowed Fills: 4 Fills Dispensed: 0 Start: 08-02-2017 take 1 tablet by emilee th every other week alendronate (FOSAMAX) 70 mg tablet Take 1 tablet by mouth every other week. 08/02/2017 Active Start: 08-02-2017 End: 11-16-2024 take 1 tablet by mouth every week Alendronate (Fosamax) 70 MG tablet Discontinued 70 mg PO EVERY WEEK September 06, 2017 1:00am November 16, 2024 10:17am osteoporosis Comment on above: 1 tablet once each w [place]. aspirin 81 mg delayed release oral tablet (20 sources) Platelet Aggregation Inhibitor, Nonsteroidal Anti-inflammatory Drug Start: 07-06-2017 aspirin 81 mg oral delayed release tablet Dose : 81 mg = 1 tab(s), Oral, Daily, 0 Refill(s) Start Date: 07/06/17 Status: Ordered Medication Dispense Status: Completed Total Allowed Fills: 1 Fills Dispensed: 0 Start: 07-06-2017 aspirin 81 mg oral delayed release tablet Dose : 81 mg = 1 tab(s), Oral, Daily, 0 Refill(s) Start Date: 07/06/17 Status: Ordered Comment on above: Take 81 mg by mouth once daily. calcium carbonate 1500 mg oral tablet (7 sources) Start: 07-06-2017 Caltrate 600 mg oral tablet Dose : 1,200 mg = 2 tab(s), Oral, qDay, 0 Refill(s) Start Date: 07/06/17 Status: Ordered Calcium Carbonate / vitamin D3 (15 sources) take 1 capsule by mouth twice daily CALCIUM CARBONATE/VITAMIN D3 (CALTRATE 600 + D ORAL) Take 1 capsule by mouth twice daily. Active take 1 capsule by mouth twice da alexis CALCIUM CARBONATE/VITAMIN D3 (CALTRATE 600 + D ORAL) Take 1 capsule by mouth twice daily. 0 Active Comment on above: Take 1 capsule by mo uth twice daily. Centrum Silver oral tablet (7 sources) Start: 9 take 1 tablet by mouth once daily Centrum Silver oral tablet Dose = 1 tab(s), Oral, qDay, 0 Refill(s) Start Date: 02/13/19 Status: Ordered cephalexin 500 mg oral capsule (11 sources) Cephalosporin Antibacterial Start: 3 End: cephalexin 250 mg oral tablet Dose : 250 mg = 1 tab(s), Oral, BID, X 7 day(s), # 14 tab(s), 0 Refill(s), 05/26/23 10:56:00 AM EDT, [facility]: [id number], Cystitis, 157.5, cm, 05/19/23 10:10:00 EDT, Height, 80.7, kg, 05/19/23 10:10:00 EDT, Dosing Weight Start Date: 05/19/23 Stop Date: 05/26/23 Status: Ordered Start: 09-14-2017 End: 10-30-2024 take 1 capsule by mouth every twelve hours Cephalexin 500 MG capsule Discontinued 500 mg PO EVERY 12 HOURS 20 0 September 14, 2017 1:00am October 30, 2024 9:35pm Continuous Glucose Monitorin g System (20 sources) Start: 06-05-2024 Continuous Glu cose Monitoring System See Instructions, Dexcom G6 sensors - replace q10 days 90 day supply, # 7 EA, 1 Refill(s), Pharmacy: [facility], Type II diabetes with care home use of insulin Type 2 diabetes with stage 3 chronic kidney disease GFR 30-59, 155, cm, 06/02/24 9:29:00 EDT, Height, 83.2, kg, 06/02/24 9:29:00 EDT, Dosing Weight Start Date: 06/05/24 Status: Ordered Medication Dispense Status: Completed Quantity: 7.0 Unit: EA Total Allowed Fills: 2 Fills Dispensed: 0 Indications: Type 2 diabetes mellitus with diabetic chronic kidney disease; Type 2 diabetes mellitus without complications; Start: 06-05-2024 Continuous Glu cose Monitoring System See Instructions, Dexcom G6 sensors - replace q10 days 90 day supply, # 7 EA, 1 Refill(s), Pharmacy: [facility], Type II diabetes with care home use of insulin Type 2 diabetes with stage 3 chronic kidney disease GFR 30-59, 155, cm, 06/02/24 9:29:00 EDT, Height, 83.2, kg, 06/02/24 9:29:00 EDT, Dosing Weight Start Date: 06/05/24 Status: Ordered Quantity: 7.0 Unit: EA Repeat number: 2 Indications: Type 2 diabetes mellitus with diabetic chronic kidney disease; Type 2 diabetes mellitus without complications; Start: 05-19-2023 Continuous Glu cose Monitoring System See Instructions, for short term 72 hour CGM Decom G6 reader., # 1 EA, 0 Refill(s), Pharmacy: [facility] #[id number], Type II diabetes with care home use of insulin Type 2 diabetes with stage 3 chronic kidney disease GFR 30-59, 157.5, cm, 05/19/23 10:10:00 EDT, Height, 80.7, kg, 05/19/23 10:10:00 EDT, Dosing Weight Start Date: 05/19/23 Status: Ordered Quantity: 1.0 Unit: EA Repeat number: 1 Indications: Type 2 diabetes mellitus without complications; Type 2 diabetes mellitus with diabetic chronic kidney disease; Start: 05-19-2023 Continuous Glu cose Monitoring System See Instructions, for short term 72 hour CGM Decom G6 reader., # 1 EA, 0 Refill(s), [id number], Type II diabetes with care home use of insulin Type 2 diabetes with stage 3 chronic kidney disease GFR 30-59, 157.5, cm, 05/19/23 10:10:00 EDT, Height, 80.7, kg, 05/19/23 10:10:00 EDT, Dosing Weight Start Date: 05/19/23 Status: Ordered Start: 05-19-2023 Continuous Glu cose Monitoring System See Instructions, for short term 72 hour CGM. 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 Type 2 diabetes with stage 3 chronic kidney disease GFR 30-59, 157.5, cm, 05/19/23 10:10:00 EDT, Height, 80.7, kg, 05/19/23 10:10:00 EDT, Dosing Weight Start Date: 05/19/23 Status: Ordered cyclobenzaprine hydrochloride 5 mg oral tablet (6 sources) Muscle Relaxant Start: 03-19-2025 take 1 tablet by mouth twice daily as needed cyclobenzaprine (FLEXERIL) 5 mg tablet Indications: S/P cervical spinal fusion TAKE 1 TABLET BY MOUTH TWICE A DAY NEEDED 60 tablet 03/19/2025 Active Start: 02-15-2025 End: 03-17-2025 take 1 tablet by mouth twice daily as needed cyclobenzaprine (FLEXERIL) 5 mg tablet Indications: S/P cervical spinal fusion Take 1 tablet by mouth two times a day as needed. 60 tablet 02/15/2025 03/17/2025 Active DULoxetine 30 mg delayed release oral capsule (13 sources) Serotonin and Norepinephrine Reuptake Inhibitor Start: 11-16-2024 End: 11-20-2024 take 1 capsule by mouth twice daily Duloxetine (Cymbalta) 20 mg capsule,delayed release(DR/EC) Discontinued 20 mg PO TWICE A DAY November 16, 2024 12:00am November 20, 2024 6:28pm Start: 11-08-2024 End: 05-07-2025 DULoxetine 30 mg oral delaye d release capsule Dose : 30 mg = 1 cap(s), Oral, qDay, # 30 cap(s), 3 Refill(s), Pharmacy: [facility], 157, cm, 03/07/25 11:44:00 EDT, Height, kg, 03/07/25 11:44:00 EDT, Dosing Weight Start Date: 04/23/25 Status: Ordered Medication Dispense Status: Completed Quantity: 30.0 Unit: cap(s) Total Allowed Fills: 4 Fills Dispensed: 0 Start: 08-07-2022 End: 02-02-2023 DULoxetine 30 mg oral delaye d release capsule Dose : 30 mg = 1 cap(s), Oral, qDay, # 30 cap(s), 2 Refill(s), [id number], Anxiety and depression Diabetes mellitus, 157.5, cm, 09/16/22 9:59:00 EST, Height, kg, 09/16/22 9:59:00 EST, Dosing Weight Start Date: 11/04/22 Stop Date: 02/02/23 Status: Ordered fe heme polypeptide 6 mg / polysaccharide iron complex 22 mg oral tablet (4 sources) Start: 11-02-2024 take 1 tablet by mouth once daily Iron Polysac-Iron Heme Polypep 28 mg tablet Active 1 {tbl} PO DAILY 60 0 November 02, 2024 12:00am ferrous sulfate 325 mg oral tablet (11 sources) ferrous sulfate (FEOSOL) 325 mg (65 mg iron) tablet Take 325 mg by mouth. Active hydrOXYzine hydrochloride 25 mg oral tablet (1 source) Antihistamine Start: 08-07-2022 End: 09-06-2022 hydrOXYzine hydrochloride 25 mg oral tablet Dose : 25 mg = 1 tab(s), Oral, BID, PRN as needed for anxiety, X 30 day(s), # 30 tab(s), 0 Refill(s), 09/06/22 11:18:00 EST, [facility]acy: [facility] #[id number], Anxiety and depression Diabetes mellitus, 157.5, cm, 08/07/22 10:26:00 EST, Height Start Date: 08/07/22 Stop Date: 09/06/22 Status: Ordered Ibuprofen (19 sources) Nonsteroidal Anti-inflammatory Drug ibuprofen (ADVIL ORAL) Take by mouth. Active ibuprofen (ADVIL ) 200 mg tablet Take 400 mg by mouth as needed for pain. Active 3 ml insulin aspart, human 100 unt/ml pen injector (20 sources) Insulin Analog Start: 11-22-2024 Insulin Aspart U-100 (Novolog Flexpen U-100 Insulin) 100 UNITS/ML insulin pen Active 20 U SC 3 TIMES DAILY WITH MEALS 0 30 0 November 22, 2024 11:59am DIABETES Hold if glucose less than 130 mg/dl Start: 07-31-2024 NovoLOG FlexPe n 100 units/mL injectable solution See Instructions, INJECT 27 UNITS 3 TIMES A DAY BEFORE MEALS please dispense enough for 3 months at a time, # 6 EA, 0 Refill(s), Pharmacy: [facility], DM II (diabetes mellitus, type II), controlled, 156.4, cm, 07/19/24 17:08:00 EST, Height, kg, 07/19/24 17:08:00 EST, Dosing Weight Start Date: 07/31/24 Status: Ordered Medication Dispense Status: Completed Quantity: 6.0 Unit: EA Total Allowed Fills: 1 Fills Dispensed: 0 Indications: Type 2 diabetes mellitus without complications; Start: 10-14-2024 NovoLOG FlexPe n 100 units/mL injectable solution See Instructions, INJECT 27 UNITS 3 TIMES A DAY BEFORE MEALS please dispense enough for 3 months at a time in lieu of PCP, # 3 mL, 0 Refill(s), Pharmacy: [facility]/pharmacy #[id number], 155, cm, 01/31/24 13:15:00 EDT, Height, kg, 01/31/24 13:15:00 EDT, Dosing Weight Start Date: 05/15/24 Status: Ordered Start: 06-16-2023 NovoLOG FlexPe n 100 units/mL injectable solution See Instructions, INJECT 27 UNITS 3 TIMES A DAY BEFORE MEALS please dispense enough for 3 months at a time, # 3 mL, 1 Refill(s), Pharmacy: [facility] #[id number], 157.5, cm, 06/16/23 10:38:00 EST, Height, kg, 06/16/23 10:38:00 EST, Dosing Weight Start Date: 06/16/23 Status: Ordered Start: 05-19-2023 NovoLOG FlexPe n 100 units/mL injectable solution See Instructions, INJECT 27 UNITS 3 TIMES A DAY BEFORE MEALS please dispense enough for 3 months at a time, # 3 mL, 1 Refill(s), Pharmacy: [facility] #[id number], 157.5, cm, 05/19/23 10:10:00 EDT, Height, kg, 05/19/23 10:10:00 EDT, Dosing Weight Start Date: 05/19/23 Status: Ordered Start: 12-14-2022 NovoLOG FlexPe n 100 units/mL injectable solution See Instructions, INJECT 22 UNITS 3 TIMES A DAY BEFORE MEALS please dispense enough for 3 months at a time, # 3 mL, 1 Refill(s), Pharmacy: [facility] #[id number], 157.5, cm, 09/16/22 9:59:00 EST, Height, kg, 09/16/22 9:59:00 EST, Dosing Weight Start Date: 12/14/22 Status: Ordered Start: 06-17-2022 NovoLOG FlexPe n 100 units/mL injectable solution See Instructions, INJECT 22 UNITS 3 TIMES A DAY BEFORE MEALS please dispense enough for 3 months at a time, # 3 mL, 0 Refill(s), Pharmacy: [facility] #[id number], 157, cm, 04/10/22 8:58:00 EDT, Height, kg, 04/10/22 8:58:00 EDT, Dosing Weight Start Date: 06/17/22 Status: Ordered Start: 07-17-2021 NovoLOG FlexPe n 100 units/mL injectable solution See Instructions, INJECT 22 UNITS 3 TIMES A DAY BEFORE MEALS please dispense enough for 3 months at a time, # 3 mL, 3 Refill(s), [facility]: [facility] [place] [address], 156, cm, 05/01/21 9:54:00 EDT, Height, kg, 05/01/21 9:54:00 EDT, Dosing Weight Start Date: 07/17/21 Status: Ordered Start: 09-06-2017 End: 11-22-2024 Insulin Aspart U-100 (Novolo g Flexpen U-100 Insulin) 100 UNITS/ML insulin pen Discontinued 24 U SC 3 TIMES DAILY WITH MEALS September 06, 2017 1:00am November 22, 2024 12:00pm DIABETES Start: 08-04-2017 NOVOLOG FLEXPE N 100 unit/mL inpn Inject 34 Units subcutaneously three times a day before meals. 08/04/2017 Active Start: 08-04-2017 NOVOLOG FLEXPE N 100 unit/mL inpn Inject 25 Units subcutaneously three times daily. 08/04/2017 Active Comment on above: Inject 25 Units subcutaneously three alisha es daily. 3 ml insulin degludec 100 unt/ml pen injector (5 sources) Insulin Analog Start: 04-11-20 inject 1 dose by subcutaneous injection once daily Insulin Degludec FlexTouch 100 units/mL subcutaneous solution Dose : 35 unit(s) =, Subcutaneous, qDay, # 15 mL, 2 Refill(s), Pharmacy: [facility], 157, cm, 03/07/25 11:44:00 EDT, Height, kg, 03/07/25 11:44:00 EDT, Dosing Weight Start Date: 04/11/25 Status: Ordered Medication Dispense Status: Completed Quantity: 15.0 Unit: mL Total Allowed Fills: 3 Fills Dispensed: 0 Start: 01-29-2025 insulin deglud ec (TRESIBA FLEXTOUCH) 100 unit/mL (3 mL) injection pen Inject 35 Units subcutaneously once daily. 01/29/2025 Active Start: 12-27-2024 inject 1 dose by sub cutaneous injection once daily Insulin Degludec FlexTouch 100 units/mL subcutaneous solution Dose : 35 unit(s) =, Subcutaneous, qDay, # 15 mL, 2 Refill(s), [facility], [facility], cm, 11/08/24 11:10:00 EDT, Height, kg, 11/08/24 11:10:00 EDT, Dosing Weight Start Date: 12/27/24 Status: Ordered Quantity: 15.0 Unit: mL Repeat number: 3 3 ml insulin glargine 100 unt/ml pen injector (20 sources) Insulin Analog Start: 11-22-2024 Insulin Glargi ne (Lantus Solostar U-100 Insulin) 100 UNITS/ML insulin pen Active 25 U SC WITH DINNER 0 30 0 November 22, 2024 11:59am DIABETES Hold if glucose less than 130 mg/dl Start: 05-15-2024 Basaglar KwikP en 100 units/mL subcutaneous solution See Instructions, INJECT 35 UNIT DAILY, please dispense enough for 3 months (90 days) at a time., # 3 mL, 0 Refill(s), Pharmacy: [facility]/pharmacy #[id number], 155, cm, 01/31/24 13:15:00 EDT, Height, kg, 01/31/24 13:15:00 EDT, Dosing Weight Start Date: 05/15/24 Status: Ordered Start: 11-19-2023 Basaglar KwikP en 100 units/mL subcutaneous solution See Instructions, INJECT 35 UNIT DAILY, please dispense enough for 3 months (90 days) at a time., # 3 mL, 1 Refill(s), Pharmacy: [facility] #[id number], 157.5, cm, 11/19/23 10:16:00 EDT, Height, kg, 11/19/23 10:16:00 EDT, Dosing Weight Start Date: 11/19/23 Status: Ordered Start: 06-30-2023 Basaglar KwikP en 100 units/mL subcutaneous solution See Instructions, INJECT 35 UNIT DAILY, please dispense enough for 3 months (90 days) at a time., # 3 mL, 1 Refill(s), Pharmacy: [facility] #[id number], 157.5, cm, 06/16/23 10:38:00 EST, Height, kg, 06/16/23 10:38:00 EST, Dosing Weight Start Date: 06/30/23 Status: Ordered Start: 01-22-2023 Basaglar KwikP en 100 units/mL subcutaneous solution See Instructions, INJECT 35 UNIT DAILY, please dispense enough for 3 months (90 days) at a time., # 3 mL, 1 Refill(s), Pharmacy: [email or web address] #[id number], 157.5, cm, 09/16/22 9:59:00 EST, Height, kg, 09/16/22 9:59:00 EST, Dosing Weight Start Date: 01/22/23 Status: Ordered Start: 07-31-2022 Basaglar KwikP en 100 units/mL subcutaneous solution See Instructions, INJECT 35 UNIT DAILY, please dispense enough for 3 months (90 days) at a time., # 3 mL, 1 Refill(s), Pharmacy: [email or web address] #[id number], 157, cm, 04/10/22 8:58:00 EDT, Height, kg, 04/10/22 8:58:00 EDT, Dosing Weight Start Date: 07/31/22 Status: Ordered Start: 07-17-2021 Basaglar KwikP en 100 units/mL subcutaneous solution See Instructions, INJECT 35 UNIT DAILY, please dispense enough for 3 months at a time., # 3 mL, 3 Refill(s), Pharmacy: [email or web address] 156, cm, 05/01/21 9:54:00 EDT, Height, kg, 05/01/21 9:54:00 EDT, Dosing Weight Start Date: 07/17/21 Status: Ordered Start: 07-17-2021 Basaglar KwikP en 100 units/mL subcutaneous solution See Instructions, INJECT 35 UNIT DAILY, please dispense enough for 3 months at a time., # 3 mL, 3 Refill(s), Pharmacy: [email or web address] 156, cm, 05/01/21 9:54:00 EDT, Height, kg, 05/01/21 9:54:00 EDT, Dosing Weight Start Date: 07/17/21 Status: Ordered Start: 10-31-2020 Basaglar KwikP en 100 units/mL subcutaneous solution See Instructions, INJECT 35 UNIT DAILY, please dispense enough for 3 months at a time., # 3 mL, 3 Refill(s), Pharmacy: [facility]/pharmacy #[id number], 155, cm, 10/30/20 11:07:00 EDT, Height, kg, 10/30/20 11:07:00 EDT, Dosing Weight Start Date: 10/31/20 Status: Ordered Start: 09-06-2017 End: 11-22-2024 Insulin Glargine (Lantus Donna ostar U-100 Insulin) 100 UNITS/ML insulin pen Discontinued 35 U SC AT BEDTIME September 06, 2017 1:00am November 22, 2024 12:00pm DIABETES Start: 08-03-2017 LANTUS SOLOSTA R 100 unit/mL (3 mL) inpn Inject 30-35 Units subcutaneously daily at bedtime. 08/03/2017 Active Comment on above: Inject 30-35 Units s ubcutaneously daily at bedtime. Iron polysaccharide (2 sources) Start: 11-09-19 take 1 tablet by mouth once daily, then take 1 tablet by mouth once daily iron polysaccharide Dose : 28 mg =, Oral, qDay, Takes 1 tab daily, 0 Refill(s) Start Date: 11/08/24 Status: Ordered Medication Dispense Status: Completed Total Allowed Fills: 1 Fills Dispensed: 0 Start: 11-08-2024 take 1 tablet by emilee th once daily, then take 1 tablet by mouth once daily iron polysaccharide Dose : 28 mg =, Oral, qDay, Takes 1 tab daily, 0 Refill(s) Start Date: 11/08/24 Status: Ordered Repeat number: 1 linaclotide 0.145 mg oral capsule (14 sources) Guanylate Cyclase-C Agonist Start: 11-16-2024 take 1 capsule by mouth once daily in the morning LINZESS 145 mcg capsule 145 MCG ORALLY EVERY MORNING 11/17/2024 Active LORazepam 0.5 mg oral tablet (3 sources) Benzodiazepine Start: 02-12-2025 LORazepam (ATIVAN) 0.5 mg Take 0.5 mg by mouth. 02/12/2025 Active magnesium oxide 400 mg oral tablet (20 sources) Start: 05-20-2023 End: 11-14-2025 magnesium oxide 400 mg oral tablet Dose : 400 mg = 1 tab(s), Oral, qDay, take 1 tablet by mouth once daily for muscle spasm, X 90 day(s), # 90 tab(s), 1 Refill(s), 11/14/25 8:53:00 AM EDT, Pharmacy: [facility], 157, cm, 03/07/25 11:44:00 EDT, Height, kg, 03/07/25 11:44:00 EDT, Dosing Weight Start Date: 05/18/25 Stop Date: 11/14/25 Status: Ordered Medication Dispense Status: Completed Quantity: 90.0 Unit: tab(s) Total Allowed Fills: 2 Fills Dispensed: 0 Start: 05-19-2023 End: 11-15-2023 magnesium oxide 400 mg oral capsule Dose : 400 mg = 1 cap(s), Oral, qDay, muscle spasms., X 90 day(s), # 90 cap(s), 1 Refill(s), 11/15/23 10:54:00 AM EDT, [facility]acy: [facility] #[id number], 157.5, cm, 05/19/23 10:10:00 EDT, Height, kg, 05/19/23 10:10:00 EDT, Dosing Weight Start Date: 05/19/23 Stop Date: 11/15/23 Status: Ordered Start: 09-02-2022 End: 03-01-2023 magnesium oxide 400 mg oral tablet Dose : 400 mg = 1 tab(s), Oral, Daily, X 90 day(s), # 90 tab(s), 1 Refill(s), 03/01/23 13:14:00 EDT, Pharmacy: [facility] #[id number], 157.5, cm, 08/07/22 10:26:00 EST, Height Start Date: 09/02/22 Stop Date: 03/01/23 Status: Ordered methocarbamol 750 mg oral tablet (17 sources) Muscle Relaxant Start: 07-28-2024 End: 03-19-2025 methocarbamol 750 mg oral tablet Dose : 750 mg = 1 tab(s), Oral, TID, PRN as needed for pain, 0 Refill(s) Start Date: 08/10/24 Status: Ordered Medication Dispense Status: Completed Total Allowed Fills: 1 Fills Dispensed: 0 24 hr mirabegron 25 mg extended release oral tablet (15 sources) beta3-Adrenergi c Agonist Start: 11-20-2024 take 1 tablet by mouth once daily Myrbetriq 25 mg oral tablet, extended release TAKE ONE tablet BY MOUTH EVERY DAY Start Date: 03/07/25 Status: Ordered Medication Dispense Status: Completed Total Allowed Fills: 1 Fills Dispensed: 0 NovoLOG FlexPen 100 units/mL injectable solution (3 sources) Start: 07-17-2021 NovoLOG FlexPe n 100 units/mL injectable solution See Instructions, INJECT 22 UNITS 3 TIMES A DAY BEFORE MEALS please dispense enough for 3 months at a time, # 3 mL, 3 Refill(s), Pharmacy: [address], 156, cm, 05/01/21 9:54:00 EDT, Height, kg, 05/01/21 9:54:00 EDT, Dosing Weight Start Date: 07/17/21 Status: Ordered Start: 10-31-2020 NovoLOG FlexPe n 100 units/mL injectable solution See Instructions, INJECT 22 UNITS 3 TIMES A DAY BEFORE MEALS please dispense enough for 3 months at a time, # 3 mL, 3 Refill(s), Pharmacy: [facility]/pharmacy #[id number], 155, cm, 10/30/20 11:07:00 EDT, Height, kg, 10/30/20 11:07:00 EDT, Dosing Weight Start Date: 10/31/20 Status: Ordered omega-3 DHA-EPA (FISH OIL) 1,200 (144-216) mg capsule (20 sources) take 1 capsule by mouth once daily omega-3 DHA-EPA (FISH OIL) 1,200 (144-216) mg capsule Take 1 capsule by mouth once daily. Active omeprazole 40 mg delayed release oral capsule (20 sources) Proton Pump Inhibitor Start: omeprazole 40 mg oral delayed release capsule Dose : 40 mg = 1 cap(s), Oral, qDay, # 90 cap(s), 1 Refill(s), Pharmacy: [facility], 157, cm, 11/08/24 11:10:00 EDT, Height, kg, 11/08/24 11:10:00 EDT, Dosing Weight Start Date: 12/27/24 Status: Ordered Medication Dispense Status: Completed Quantity: 90.0 Unit: cap(s) Total Allowed Fills: 2 Fills Dispensed: 0 Comment on above: 1 capsule once daily . ONE TOUCH ULTRA BLUE TEST STRP (3 sources) Start: ONE TOUCH ULTRA BLUE TEST STRP See Instructions, # 100 strip, Refill #: 3 Total Refills: 3, TESTING TWICE DAILY, [facility]/pharmacy #[id number] Start Date: 02/21/19 Status: Ordered 24 hr oxybutynin chloride 10 mg extended release oral tablet (20 sources) Cholinergic Muscarinic Antagonist Start: End: take 1 tablet by mouth every hour, then take 1 tablet by mouth once daily, then take 1 tablet by mouth once daily oxybutynin 10 mg/24 hr oral tablet, extended release Dose : 10 mg = 1 tab(s), Oral, qDay, take 1 tablet by mouth once daily, # 90 tab(s), 1 Refill(s), Pharmacy: [facility], 157, cm, 11/08/24 11:10:00 EDT, Height, kg, 11/08/24 11:10:00 EDT, Dosing Weight Start Date: 11/29/24 Stop Date: 05/28/25 Status: Ordered Quantity: 90.0 Unit: tab(s) Repeat number: 2 Start: 05-19-2023 End: 11-13-2024 take 1 tablet by mouth every hour, then take 1 tablet by mouth once daily, then take 1 tablet by mouth once daily oxybutynin 10 mg/24 hr oral tablet, extended release Dose : 10 mg = 1 tab(s), Oral, qDay, take 1 tablet by mouth once daily in lieu of PCP, # 30 tab(s), 0 Refill(s), Pharmacy: [facility]/pharmacy #[id number], 155, cm, 01/31/24 13:15:00 EDT, Height, kg, 01/31/24 13:15:00 EDT, Dosing Weight Start Date: 05/15/24 Status: Ordered Start: 05-25-2022 End: 11-16-2024 take 1 tablet by mouth once daily oxybutynin ER (DITROPAN XL) 10 mg 24 hr tablet Take 10 mg by mouth once daily. 05/25/2022 Active Comment on above: Take 10 mg by mouth once daily. oxyCODONE hydrochloride 5 mg oral tablet (2 sources) Opioid Agonist Start: 07-28-2024 End: 08-04-2024 take 1 tablet by mouth every eight hours as needed oxyCODONE IR (ROXICODONE) 5 mg immediate release tablet Indications: Cervical stenosis of spinal canal , Post-op pain Take 1-2 tablets by mouth every 8 hours as needed for up to 7 days. 42 tablet 07/28/2024 08/04/2024 Active Pen needles (19 sources) Start: 05-18-2025 Pen needles See Instructions, Pen needles for her Basaglar and NovoLog. Using QID #400 pen needles for 90 day supply, 3 refills. Please provide insurance preferred pen needles, # 4 EA, 3 Refill(s), Pharmacy: [facility], 157, cm, 03/07/25 11:44:00 EDT, Height, 87.5, kg, 03/07/25 11:44:00 EDT, Dosing Weight Start Date: 05/18/25 Status: Ordered Medication Dispense Status: Completed Quantity: 4.0 Unit: EA Total Allowed Fills: 4 Fills Dispensed: 0 Start: 08-16-2024 Pen needles Se e Instructions, Pen needles for her Basaglar and NovoLog. #400 pen needles for 90 day supply, 3 refills. Please provide insurance preferred pen needles, # 4 EA, 3 Refill(s), Pharmacy: [facility], 157, cm, 08/10/24 13:24:00 EST, Height, 80.9, kg, 08/10/24 13:24:00 EST, Dosing Weight Start Date: 08/16/24 Status: Ordered Quantity: 4.0 Unit: EA Repeat number: 4 Start: 06-02-2024 Pen needles Se e Instructions, Pen needles for her Lantus and NovoLog. #360 pen needles for 90 day supply, 3 refills. Please provide insurance preferred pen needle., # 1 EA, 0 Refill(s), Pharmacy: [facility], 155, cm, 06/02/24 9:29:00 EDT, Height, 83.2, kg, 06/02/24 9:29:00 EDT, Dosing Weight Start Date: 06/02/24 Status: Ordered Start: 05-15-2024 Pen needles Se e Instructions, Pen needles for her Lantus and NovoLog. #360 pen needles for 90 day supply, 3 refills., # 1 EA, 0 Refill(s), Pharmacy: [facility]/pharmacy #[id number], 155, cm, 01/31/24 13:15:00 EDT, Height, 80.9, kg, 01/31/24 13:15:00 EDT, Dosing Weight Start Date: 05/15/24 Status: Ordered Start: 05-19-2023 Pen needles Se e Instructions, Pen needles for her Lantus and NovoLog. #360 pen needles for 90 day supply, 3 refills., # 1 EA, 3 Refill(s), [facility]: [facility][id number], 157.5, cm, 05/19/23 10:10:00 EDT, Height, 80.7, kg, 05/19/23 10:10:00 EDT, Dosing Weight Start Date: 05/19/23 Status: Ordered Start: 09-08-2022 Pen needles Se e Instructions, Pen needles for her Lantus and NovoLog. #360 pen needles for 90 day supply, 3 refills., # 1 EA, 3 Refill(s), Pharmacy: [email or web address] #[id number], 157.5, cm, 08/07/22 10:26:00 EST, Height, 81.3, kg, 08/07/22 10:26:00 EST, Dosing Weight Start Date: 09/08/22 Status: Ordered Start: 05-02-2021 Pen needles Se e Instructions, Pen needles for her Lantus and NovoLog. For shot today. Please give enough for 3 months. Thank you, # 1 EA, 3 Refill(s), Pharmacy: [facility] 156, cm, 05/01/21 9:54:00 EDT, Height, 85.7, kg, 05/01/21 9:54:00 EDT, Dos... Start Date: 05/02/21 Status: Ordered simvastatin 10 mg oral tablet (20 sources) HMG-CoA Reductase Inhibitor Start: 07-11-2017 simvastatin 10 mg oral tablet Dose : 10 mg = 1 tab(s), Oral, qHS, TAKE 1 TABLET BY MOUTH AT BEDTIME, # 90 tab(s), 1 Refill(s), Pharmacy: [facility], 157, cm, 11/08/24 11:10:00 EDT, Height, kg, 11/08/24 11:10:00 EDT, Dosing Weight Start Date: 12/27/24 Status: Ordered Medication Dispense Status: Completed Quantity: 90.0 Unit: tab(s) Total Allowed Fills: 2 Fills Dispensed: 0 Comment on above: 1 tablet once daily. tamoxifen 20 mg oral tablet (13 sources) Estrogen Agonist/Antagonist Start: 02-13-2019 End: 07-07-2022 tamoxifen 20 mg oral tablet Dose : 20 mg = 1 tab(s), Oral, qDay, 0 Refill(s) Start Date: 02/13/19 Status: Ordered Comment on above: Take 1 tablet (20 mg ) by mouth once daily. valsartan 40 mg oral tablet (20 sources) Angiotensin 2 Receptor Mj Start: 06-24-2017 valsartan 40 mg oral tablet Dose : 40 mg = 1 tab(s), Oral, BID, # 180 tab(s), 1 Refill(s), Pharmacy: [facility], 157, cm, 11/08/24 11:10:00 EDT, Height, kg, 11/08/24 11:10:00 EDT, Dosing Weight Start Date: 12/27/24 Status: Ordered Medication Dispense Status: Completed Quantity: 180.0 Unit: tab(s) Total Allowed Fills: 2 Fills Dispensed: 0 Start: 06-24-2017 valsartan 40 m g oral tablet Dose : 40 mg = 1 tab(s), Oral, BID, # 180 tab(s), 3 Refill(s), [facility]: [facility] 155, cm, 10/29/21 10:06:00 EDT, Height, kg, 10/29/21 10:06:00 EDT, Dosing Weight Start Date: 10/29/21 Status: Ordered Comment on above: 1 tablet once daily. Completed/Discontinued Medications Medication Drug Class(es) Dates Sig (Normalized) Sig (Original) acetaminophen 325 mg / HYDROcodone bitartrate 5 mg oral tablet (10 sources) Opioid Agonist Start: 09-06-2017 End: 10-30-2024 Hydrocodone-Acetami nophen 1 EACH tablet Discontinued 1 NMA PO EVERY 6 HOURS NEEDED as needed for Mod-Severe Pain (-05/11) 15 4 0 September 14, 2017 8:04am October 30, 2024 9:35pm Encounter for examination following surgery calcium carbonate 1500 mg / cholecalciferol 800 unt oral tablet (5 sources) Vitamin D Start: 09-06-2017 End: 10-30-2024 Calcium Carbonate-Vitamin D3 (Caltrate 600 Plus D3 Tablet) 1 EACH tablet Discontinued 1 NMA PO TWICE A DAY September 06, 2017 1:00am October 30, 2024 9:35pm SUPPLEMENT docusate sodium 50 mg / sennosides, longterm 8.6 mg oral tablet (5 sources) Start: 11-20-2024 End: 12-28-2024 Sennosides-Docusate Sodium (Senexon-S) 8.6-50 mg tablet Discontinued 2 {tbl} PO DAILY November 20, 2024 12:00am December 28, 2024 10:00am Start: 07-28-2024 End: 08-12-2024 take 2 tablets by mouth once daily senna-docusate (SENNA-S) 8.6-50 mg per tablet 2 tablets by ORAL/FEEDING TUBE route once daily for 15 days. 30 tablet 07/28/2024 08/12/2024 Active furosemide 20 mg oral tablet (15 sources) Loop Diuretic Start: 11-20-2024 End: 02-25-2025 Lasix 20 mg oral tablet Dose : 20 mg = 1 tab(s), Oral, qDay, PRN Swelling, as needed for swelling in legs or 3-5 pound weight gain over 3 days., # 90 tab(s), 1 Refill(s), Pharmacy: [facility], 157, cm, 11/08/24 11:10:00 EDT, Height, kg, 11/08/24 11:10:00 EDT, Dosing Weight Start Date: 12/27/24 Stop Date: 02/25/25 Status: Ordered Medication Dispense Status: Completed Quantity: 90.0 Unit: tab(s) Total Allowed Fills: 2 Fills Dispensed: 0 Mirabegron (Myrbetriq) 8 mg/mL suspension,extended rel recon (3 sources) Start: 11-16-2024 End: 11-20-2024 Mirabegron (Myrbetriq) 8 mg/mL suspension,extende d rel recon Discontinued mg PO November 16, 2024 12:00am November 20, 2024 6:27pm naproxen sodium 220 mg oral tablet (5 sources) Nonsteroidal Anti-inflammatory Drug Start: 09-06-2017 End: 10-30-2024 take 1 tablet by mouth every eight hours as needed for pain Naproxen Sodium (Aleve) 220 MG tablet Discontinued 220 mg PO EVERY 8 HOURS NEEDED as needed for Pain September 06, 2017 1:00am October 30, 2024 9:37pm polyethylene glycol 3350 [id number] mg / potassium chloride 2970 mg / sodium bicarbonate 6740 mg / sodium chloride 5860 mg / sodium sulfate 61877 mg powder for oral solution (1 source) Osmotic Laxative Start: 08-05-2021 End: 07-07-2022 peg 3350-Electrolytes (GOLYTELY) 236-22.74-6.74 -5.86 gram suspension Refer to printed prep instructions from your provider. 4000 mL 0 08/05/2021 07/07/2022 Discontinued Comment on above: Refer to printed pre p instructions from your provider. solifenacin succinate 10 mg oral tablet (18 sources) Cholinergic Muscarinic Antagonist Start: 08-01-2017 End: 10-30-2024 take 1 tablet by mouth once daily Solifenacin (Vesicare) 10 MG tablet Discontinued 10 mg PO DAILY September 06, 2017 1:00am October 30, 2024 9:37pm BLADDER Comment on above: 1 capsule once daily . tiZANidine 2 mg oral tablet (5 sources) Central alpha-2 Adrenergic Agonist Start: 09-06-2017 End: 10-30-2024 take 1 tablet by mouth every eight hours as needed for pain Tizanidine 2 MG tablet Discontinued 2 mg PO Q8H as needed for Pain September 06, 2017 1:00am October 30, 2024 9:38pm Problems Active Problems Problem Classification Problem Date Documented Da te Episodic/Chronic Abdominal hernia (1 source) Hernia of anterior abdominal wall; Translations: [Ventral hernia without obstruction or gangrene] 06-22-2024 Episodic Abdominal pain (1 source) Abdominal pain; Translations: [Unspecified abdominal pain] Onset: 3 Episodic Anxiety disorders (19 sources) Generalized anxiety disorder; Translations: [Mixed anxiety and depressive disorder] Onset: 5 09-16-2022 Chronic Cancer of breast (20 sources) Malignant tumor of breast ; Translations: [Malignant neoplasm of upper-outer quadrant of female breast] Onset: 7 07-06-2017 Chronic Comment on above: Right Cancer of breast (20 sources) History of malignant neoplasm of breast; Translations: [Personal history of malignant neoplasm of breast] Onset: 5 10-31-2020 Episodic Cancer of colon (5 sources) History of malignant neoplasm of colon; Translations: [Personal history of other malignant neoplasm of large intestine] Onset: 5 03-01-2025 Episodic Cancer of rectum and anus (20 sources) Adenocarcinoma of rectosigmoid junction; Translations: [Malignant neoplasm of rectosigmoid junction] Onset: 0 Chronic Chronic kidney disease (20 sources) Chronic kidney disease stage 3; Translations: [Stage 3 chronic kidney disease] Onset: 4 09-16-2022 Chronic Chronic kidney disease (1 source) Chronic kidney disease; Translations: [Stage 3 chronic kidney disease, unspecified whether stage 3a or 3b CKD (HCC)] Onset: 4 Coronary atherosclerosis and other heart disease (20 sources) Coronary arteriosclerosis; Translations: [Atherosclerotic heart disease of [place] coronary artery without angina pectoris] Onset: 4 07-07-2024 Chronic Deficiency and other anemia (20 sources) Anemia of chronic disease; Translations: [Anemia in other chronic diseases classified elsewhere] Onset: 4 09-16-2022 Chronic Deficiency and other anemia (2 sources) Anemia in other chronic diseases classified elsewhere; Translations: [Anemia of chronic disease] Onset: 4 Chronic Deficiency and other anemia (1 source) Iron deficiency anemia secondary to blood loss (chronic); Translations: [Iron deficiency anemia secondary to blood loss (chronic)] Onset: 5 Chronic Deficiency and other anemia (20 sources) Anemia; Translations: [Anemia, unspecified] 02-11-2019 Episodic Diabetes mellitus with complications (20 sources) Type 2 diabetes mellitus; Translations: [Type 2 diabetes mellitus with ketoacidosis without coma] Onset: 7 07-13-2017 Chronic Diabetes mellitus without complication (20 sources) Diabetes mellitus; Translations: [Type 2 diabetes mellitus] Onset: 4 07-06-2017 Chronic Disorders of lipid metabolism (20 sources) Hypercholesterolemia; Translations: [Hyperlipidemia] Onset: 4 07-06-2017 Chronic Diverticulosis and diverticulitis (20 sources) Hemorrhage of large intestine with diverticular disease of large intestine; Translations: [Diverticulitis of large intestine without perforation or abscess with bleeding] Onset: 7 07-13-2017 Chronic Esophageal disorders (20 sources) Gastroesophageal reflux disease; Translations: [Gastro-esophageal reflux disease without esophagitis] Onset: 4 07-06-2017 Chronic Essential hypertension (20 sources) Hypertensive disorder; Translations: [Essential (primary) hypertension] Onset: 4 07-21-2024 Chronic Gastrointestinal hemorrhage (20 sources) Rectal hemorrhage; Translations: [Acute lower gastrointestinal hemorrhage] Onset: 5 02-11-2019 Episodic Genitourinary symptoms and ill-defined conditions (14 sources) Mixed urinary incontinence 09-16-2022 Chronic Mood disorders (20 sources) Depressive disorder; Translations: [Major depressive disorder] 02-11-2019 Chronic Mycoses (15 sources) Onychomycosis due to dermatophyte 04-10-2022 Episodic Nutritional deficiencies (20 sources) Vitamin D deficiency; Translations: [Vitamin D deficiency, unspecified] Onset: 7 07-13-2017 Chronic Osteoarthritis (20 sources) Arthritis; Translations: [Unspecified osteoarthritis, unspecified site] 07-06-2017 Chronic Other bone disease and musculoskeletal deformities (20 sources) Osteopenia 02-11-2019 Episodic Other bone disease and musculoskeletal deformities (1 source) Disorder of bone; Translations: [Other specified disorders of bone density and structure, other site] 05-22-2024 Episodic Other connective tissue disease (20 sources) Plantar fasciitis 02-11-2019 Episodic Other connective tissue disease (15 sources) Cramp in lower limb 04-10-2022 Episodic Other connective tissue disease (13 sources) History of cervical spine fusion; Translations: [Arthrodesis status] 07-27-2024 Episodic Other connective tissue disease (2 sources) Swelling of lower limb 11-08-2024 Episodic Other diseases of bladder and urethra (15 sources) Overactive bladder 04-10-2022 Chronic Other gastrointestinal disorders (5 sources) 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; Translations: [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] 11-16-2024 Chronic Other gastrointestinal disorders (5 sources) History of lower gastrointestinal bleed; Translations: [Personal history of other diseases of the digestive system] 11-24-2024 Episodic Other gastrointestinal disorders (4 sources) Constipation; Translations: [Constipation, unspecified] 12-28-2024 Episodic Other hereditary and degenerative nervous system conditions (2 sources) Myelopathy in diseases classified elsewhere; Translations: [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)] Onset: Chronic Other injuries and conditions due to external causes (5 sources) Spinal cord decompression injury; Translations: [Caisson disease [decompression sickness], initial encounter] 11-24-2024 Episodic Comment on above: C6-C7 Other lower respiratory disease (5 sources) Respiratory insufficiency; Translations: [Other abnormalities of breathing] 11-21-2024 Episodic Other nervous system disorders (5 sources) Walking disability; Translations: [Difficulty in walking, not elsewhere classified] 11-21-2024 Chronic Other nervous system disorders (5 sources) Bilateral carpal tunnel syndrome; Translations: [Carpal tunnel syndrome, bilateral upper limbs] 02-15-2025 Chronic Other nervous system disorders (3 sources) Carpal tunnel syndrome of right wrist; Translations: [Carpal tunnel syndrome, right upper limb] 02-23-2025 Chronic Other nervous system disorders (1 source) Difficulty in walking, not elsewhere classified; Translations: [Difficulty in walking, not elsewhere classified] Onset: 5 Chronic Other nervous system disorders (2 sources) Carpal tunnel syndrome of left wrist; Translations: [Carpal tunnel syndrome, left upper limb] 04-09-2025 Chronic Other nervous system disorders (1 source) Carpal tunnel syndrome, right upper limb; Translations: [Carpal tunnel syndrome, right] Onset: 5 Chronic Other nervous system disorders (1 source) Carpal tunnel syndrome, left upper limb; Translations: [Carpal tunnel syndrome, left] Onset: 5 Chronic Other nervous system disorders (1 source) Carpal tunnel syndrome, bilateral upper limbs; Translations: [Bilateral carpal tunnel syndrome] Onset: 5 Chronic Other nervous system disorders (20 sources) Paresthesia of hand 07-06-2017 Episodic Other nervous system disorders (1 source) Tremor; Translations: [Tremor, unspecified] 05-22-2024 Episodic Other nutritional; endocrine; and metabolic disorders (20 sources) Obese class I; Translations: [Obesity, unspecified] Onset: 0 09-22-2019 Chronic Other nutritional; endocrine; and metabolic disorders (19 sources) Body mass index 30+ - obesity; Translations: [Obesity, unspecified] 09-16-2022 Chronic Other nutritional; endocrine; and metabolic disorders (14 sources) Obesity 09-16-2022 Chronic Other nutritional; endocrine; and metabolic disorders (19 sources) Obese class II; Translations: [Obesity, Class II, BMI 35-39.9] Onset: 4 07-22-2024 Chronic Other nutritional; endocrine; and metabolic disorders (1 source) Obesity, unspecified; Translations: [Obesity, unspecified] Onset: 5 Chronic Screening and history of mental health and substance abuse codes (14 sources) Tobacco use and exposure - finding 09-16-2022 Chronic Skin and subcutaneous tissue infections (1 source) Cellulitis of abdominal wall ; Translations: [Cellulitis of abdominal wall] Onset: 3 Episodic Spondylosis; intervertebral disc disorders; other back problems (4 sources) Intervertebral disc disorder of cervical region with myelopathy 06-02-2024 Chronic Unclassified (1 source) Unknown / UNK(Unknown) Onset: 8 Unclassified (10 sources) Patient encounter status 11-19-2023 Unclassified (10 sources) History of cervical spine fusion 10-12-2024 Unclassified (3 sources) This appointment will be with RN PROGRESSIVE CARE Imani Bermudez. Unclassified (1 source) Obesity, Class II, BMI 35-39.9; Translations: [Obesity, Class II, BMI 35-39.9] Onset: 4 Unclassified (1 source) Carcinoma of breast, estrogen receptor positive and progesterone receptor negative, unspecified laterality (HCC); Translations: [Carcinoma of breast, estrogen receptor positive and progesterone receptor negative, unspecified laterality (HCC)] Onset: 8 Unclassified (2 sources) Autogenerated Problem Onset: 5 03-11-2025 Unclassified (1 source) Presurgical Testing Onset: Varicose veins of lower extremity (15 sources) Venous varices 04-10-2022 Episodic Past or Other Problems Problem Classification Problem Date Documented Da te Episodic/Chronic Deficiency and other anemia (3 sources) Anemia, unspecified; Translations: [Anemia, unspecified type] Onset: 07-04-2024 Episodic E Codes: Fall (6 sources) Fall in home; Translations: [Unspecified fall, initial encounter] Onset: 11-28-2024 11-21-2024 Episodic E Codes: Place of occurrence (1 source) Unspecified place in unspecified non-institutional (private) residence as the place of occurrence of the external cause; Translations: [Unspecified place in unspecified non-institutional (private) residence as the place of occurrence of the external cause] Onset: 11-28-2024 Episodic Fluid and electrolyte disorders (19 sources) Acute hyponatremia; Translations: [Hypo-osmolality and hyponatremia] Onset: 07-25-2024 07-25-2024 Episodic Genitourinary symptoms and ill-defined conditions (18 sources) Dysuria; Translations: [Proteinuria] Onset: 11-22-2023 07-06-2021 Episodic Heart valve disorders (20 sources) Heart murmur; Translations: [Cardiac murmur, unspecified] Onset: 07-07-2024 04-10-2022 Episodic Malaise and fatigue (16 sources) Asthenia; Translations: [Weakness] Onset: 11-28-2024 10-30-2024 Episodic Other aftercare (1 source) detention (current) use of insulin; Translations: [Type 2 diabetes mellitus with hyperglycemia, with long-term current use of insulin (HCC)] Onset: 07-21-2024 Episodic Other and unspecified benign neoplasm (20 sources) Polyp of ascending colon; Translations: [Polyp of colon] Onset: 07-13-2017 07-13-2017 Episodic Other connective tissue disease (3 sources) Arthrodesis status; Translations: [S/P cervical spinal fusion] Onset: 08-03-2024 Episodic Other gastrointestinal disorders (1 source) Personal history of other diseases of the digestive system; Translations: [Personal history of other diseases of the digestive system] Onset: 11-28-2024 Episodic Other injuries and conditions due to external causes (1 source) Caisson disease [decompression sickness], initial encounter; Translations: [Caisson disease [decompression sickness], initial encounter] Onset: 11-28-2024 Episodic Other lower respiratory disease (1 source) Other abnormalities of breathing; Translations: [Other abnormalities of breathing] Onset: 11-28-2024 Episodic Other nervous system disorders (1 source) Other acute postprocedural pain; Translations: [Post-op pain] Onset: 07-21-2024 Episodic Other screening for suspected conditions (not mental disorders or infectious disease) (4 sources) Blood chemistry abnormal; Translations: [Other specified abnormal findings of blood chemistry] Onset: 07-07-2024 06-01-2024 Episodic Pneumonia (except that caused by tuberculosis or sexually transmitted disease) (6 sources) Pneumonia; Translations: [Pneumonia, unspecified organism] Onset: 11-28-2024 11-21-2024 Episodic Residual codes; unclassified (2 sources) Estrogen receptor positive status [ER+]; Translations: [Carcinoma of breast, estrogen receptor positive and progesterone receptor negative, unspecified laterality (HCC)] Onset: 07-13-2017 Episodic Spondylosis; intervertebral disc disorders; other back problems (20 sources) Chronic neck pain; Translations: [Neck pain] Onset: 07-07-2024 07-06-2017 Episodic Urinary tract infections (2 sources) Cystitis, unspecified without hematuria; Translations: [Cystitis, unspecified without hematuria] Onset: 05-19-2023 Episodic Results Test Name Value Interpretation Reference Range [facility] C[facility] CNOVon 06-05-2025 CNOV [facility] ANES POSTPROC EVALon 025 ANES POSTPROC EVAL Normal [facility] ANES PRE-OPon 05-31-2025 ANES PRE-OP Normal [facility] HISTORY PHYSICALon HISTORY PHYSICAL Normal [facility] OPERATIVE NOon 05-31-2025 OPERATIVE NO Normal [facility] CNPNon 05-30-2025 CNPN Normal [facility] XR CERVICAL 4V AP/LAT/FLX/EX Ton 05-18-2025 XR CERVICAL 4V AP/LAT/FLX/EXT * * *Final Report* * * DATE OF EXAM: May 18 2025 1:07PM RMX [id number] - XR CERVICAL 4V AP/LAT/FLX/EXT / PROCEDURE REASON: S/P cervical spinal fusion * * * * Physician Interpretation * * * * XR CERVICAL 4V AP/LAT/FLX/EXT Ordering Physician: BRUNO LARES Clinical Statement: Status post cervical spinal fusion. Comparison 01/15/2025 FINDINGS: Postoperative changes status post multilevel decompression with C4-T1 posterior instrumented fusion. Hardware is intact and in unchanged position. Severe degenerative change at the left atlantoaxial joint. Facet arthropathy with 4 mm anterolisthesis of C3 on C4 in flexion which reduces with extension. Lung apices are clear. IMPRESSION: Postoperative changes status post decompression and C4-T1 instrumented spinal fusion. No change in hardware position. Facet arthropathy with dynamic anterolisthesis at the C3-4 level Cold Roll Catcher: RUBY Transcribe Date/Time: May 24 2025 9:46A Dictated by : AYESHA KEEN MD This examination was interpreted and the report reviewed and electronically signed by: AYESHA KEEN MD on May 24 2025 9:50AM EST [id number] [facility] 03-29-2025 Gastroenterology Visit Report [facility] Gastroenterology [address] [place] [address] OFFICE VISIT Date of Service: 03/29/25 MR#: [id number] Acct: [id number] Name: ORION SORENSEN Rep #: [id number] : 1950 Provider: ROSENDO chung Age/Sex: 74/F Location: [facility] [place] Status: Signed Intake Vital Signs 12/28/24 10:02 03/29/25 09:52 Height 5 ft 1 in 5 ft 1 in Weight: 192 lb 4 oz 193 lb BMI 36.3 36.4 BP 121/75 H 146/71 H Blood Pressure Location Rt brachial Position Sitting Respiration 18 Pulse 73 78 Pulse Oximetry (%) 92 96 Oxygen Delivery Method room air room air Intake Visit Reasons: 3 M FU Chief Complaint: follow-up Allergies celecoxib (From Celebrex) Allergy (Verified 03/29/25 09:52) Hives ramipril Allergy (Verified 03/29/25 09:52) Hives rofecoxib (From Vioxx) Allergy (Verified 03/29/25 09:52) Hives letrozole (From Femara) Adverse Reaction (Verified 03/29/25 09:52) Pain in joints Medications ???Medication ???Instructions ???Recorded ???Confirmed ???Type aspirin 81 mg tablet,delayed 81 mg PO DAILY HEART 09/06/1703/03 History release (Aspir-Low) omeprazole 40 mg capsule,delayed 40 mg PO DAILY REFLUX 09/06/17 History release simvastatin 10 mg tablet (Zocor) 10 mg PO QHS CHOLESTEROL 09/06/17 03/29/25 History valsartan 40 mg tablet (Diovan) 40 mg PO BID BP 09/06/17 03/29/25 History magnesium oxide 400 mg (241.3 mg 400 mg PO DAILY muscle spasm 10/3003/29/25 History magnesium) tablet iron polysaccharide complex-iron 1 tab PO DAILY #60 tabs 11/02/24 0 03/29/25 Rx heme polypeptide 28 mg tablet alendronate 70 mg tablet (Fosamax) 70 mg PO .QOWK osteoporosis 10/3103/29/25 History linaclotide 145 mcg capsule 145 mcg PO QAM #90 caps 11/16/24 0 03/29/25 Rx (Linzess) duloxetine 30 mg capsule,delayed 30 mg PO DAILY 11/20/24 03/29/25 H istory release furosemide 20 mg tablet 20 mg PO DAILY PRN swelling 03/29/25 History mirabegron 25 mg tablet,extended 25 mg PO DAILY 11/20/24 03/29/25 H istory release 24 hr (Myrbetriq) pen needle, diabetic 32 gauge x 11/20/24 03/29/25 History (BD Luz Elena 2nd Gen Pen Needle) insulin aspart U-100 100 unit/mL 20 unit (0.2 mL) subcut TIDCM 11/0103/29/25 Rx (3 mL) subcutaneous pen (Novolog DIABETES 30 days #0 mL FlexPen U-100 Insulin aspart) insulin glargine 100 unit/mL (3 25 unit (0.25 mL) subcut DINNER 03/29/25 Rx mL) subcutaneous pen (Lantus DIABETES 30 days #0 mL Solostar U-100 Insulin) Have you fallen in the past year?: No PFSH Medical History History of lower GI bleeding Decompression injury of spinal cord Skin cancer Kidney stones Hypoglycemia Blood transfusion during current hospitalisation UTI (urinary tract infection) Bone fracture Breast cancer Colorectal cancer Cancer Depression Diabetes Kidney disease GERD (gastroesophageal reflux disease) Former smoker Atrial fibrillation Hypertension Surgical History History of carpal tunnel release S/P cervical spinal fusion Family History Father CVA (cerebral vascular accident), Onset Age: 39 Sister Breast cancer Diabetes Mother Thyroid disorder Brother Arthritis Colon cancer Diabetes Mental disorder Psychiatric care CVA (cerebral vascular accident) Social History Smoking Status: Former smoker alcohol intake: current details: wine substance use type: does not use HPI HPI Chief Complaint: follow-up Details: OV 12/28/2024 74-year-old female presents for 1 month follow-up of constipation. She was started on Linzess 145 mcg once daily and reports this has resulted in more complete spontaneous formed bowel movements every morning. However, this is then followed by several urgent, frequent watery stools preventing her from leaving her home before noon. She discontinued Linzess three days ago, and since she had continued to have a good formed spontaneous BM daily with a decrease in diarrhea. She will decrease use of Linzess to 145mcg every 3 days and follow-up with me in three months. Her OOP cost for Linzess was $780 for a 90d supply. We did discuss trialing a different medication such as Amitiza 8mcg BID; however, due to her exceptionally high OOP cost for Linzess and effectiveness she will finish out her current prescription. Note: Dot VN speech recognition repair mechanic software was used to create portions of this document. Sound-alike and misspelled words, as well as other repair mechanic errors may be contained in the documentation. Patient In (more content not included)... 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 Disclaimer: This test is not designed to be used in the initial diagnosis of amyloidosis. The amyloid deposits are identified by hematoxylin-eosin, Congo red and, if necessary, by other stains. These deposits are microdissected under visual control and the tissue obtain is digested with trypsin, followed by mass spectrometry analysis. The performance of the test is dependent on the accuracy of the microdissection. Very small amounts of amyloid may not be adequate for this analysis. Confirmation of the results may be obtained by family history, molecular tests or immunohistochemistry. 04/10/2025 Laboratory Developed Test (LDT) Disclaimer: Performance characteristics of immunohistochemical, immunofluorescent and chromogenic in-situ hybridization tests have been determined by the performing laboratory within [facility]s [facility] and Laboratory Medicine Department ([facility], [facility], [facility], [facility], [facility], [facility], or [facility]) in a manner consistent with CLIA requirements. One or more of these tests have not been cleared or approved by the FDA. [facility] is regulated under CLIA as qualified to perform high-complexity testing. These tests are used for clinical purposes. They should not be regarded as investigational or for research. Positive and negative controls stain appropriately. Electronically signed out by: Jazmyn Wyatt MD Performed By: #### [id number] #### [facility] CLIA [id number] [address] [place] [address] [place] ANES POSTPROC EVALon 025 ANES POSTPROC EVAL HNO ID: [id number] Author: IMANI BANKS MD Service: Anesthesiology Author Type: Anesthesiologist Type: Anesthesia Postprocedure Evaluation Filed: 03/20/2025 12:22 Note Text: POST ANESTHESIA EVALUATION NOTE : 1950 Procedure Summary Date: 03/20/25 Room / Location: [place] [address] / [place] Anesthesia Start: 1112 Anesthesia Stop: 1205 Procedure: DECOMPRESSION NERVE MEDIAN CARPAL TUNNEL (Right: Wrist) Diagnosis: Carpal tunnel syndrome, right (Carpal tunnel syndrome, right [G56.01]) Surgeons: Chau Horowitz MD Responsible Provider: Imani Banks MD Anesthesia Type: MAC ASA Status: 3 Anesthesia Type: MAC Last Vitals Vitals Value Taken Time BP 132/62 03/20/25 12:15 Temp 36.3 ?C (97.3 ?F) 03/20/25 12:03 Pulse 81 03/20/25 12:21 Resp 16 03/20/25 12:21 SpO2 91 % 03/20/25 12:21 Vitals shown include unfiled device data. Post Anesthesia Patient Status Patient Evaluation: PACU. PACU/ICU Patient Condition: stable. Anticipated Disposition: phase 2 then home. Neurological Status: aware and responsive. Pulmonary Status: breathing comfortably on room air Airway Control: returned to baseline unsupported. Cardiovascular Status: stable. Pain Management: clinically adequate - multimodal analgesia pain management approach Postoperative Hydration: acceptable. Intraoperative Events: no significant anesthesia events Post Operative Nausea/Vomiting Status: no significant post operative nausea or vomiting Recommendation: continue current plan of care. Anesthesia Observations No notable events were associated with this procedure. Documented by Sandra Wynn APRN.MANAGER REPORTING 03/20/2025 12:07 PM EDT SIGNATURE: Imani Banks MD PATIENT NAME: Orion Sorensen DATE: March 20, 2025 TIME: 12:22 PM CSN: [id number] [facility] ANES PRE-OPon 03-20-2025 ANES PRE-OP HNO ID: [id number] Author: IMANI BANKS MD Service: Anesthesiology Author Type: Anesthesiologist Type: Anesthesia Preprocedure Evaluation Filed: 03/20/2025 10:14 Note Text: ANESTHESIOLOGY DAY OF SURGERY NOTE : 1950 Procedure Information Date/Time: 03/20/25 1040 Procedure: DECOMPRESSION NERVE MEDIAN CARPAL TUNNEL (Right: Wrist) Location: [place] [facility]02 / [place] Surgeons: Chau Horowitz MD Estimated body mass index is 36.62 kg/m? as calculated from the following: Height as of 03/01/25: 154.9 cm (5' 1). Weight as of 03/01/25: 87.9 kg (193 lb 12.8 oz). Most recent hematocrit and potassium results: Hematocrit 31.5 03/01/2025 Hematocrit (POCT) 29 07/21/2024 Potassium 4.0 03/01/2025 Potassium (POCT) 4.1 07/21/2024 Relevant Problems CARDIO (+) Cardiac murmur (+) Coronary artery disease involving [place] coronary artery (+) Hypertension ENDO (+) 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) GI (+) Gastroesophageal reflux disease -RENAL (+) Stage 3 chronic kidney disease (HCC) I - PHYSICAL EVALUATION AIRWAY Patient intubated: No. Tracheostomy tube not present Mallampati: II. TM distance: >3 FB. Neck ROM: limited flexion and extension. Mouth opening: adequate. Short neck: no. Thick neck: no DENTAL Dental findings: teeth intact. Additional exam findings: yes. CARDIOVASCULAR Rhythm: regular Rate: normal PULMONARY Breath sounds clear to auscultation. ABDOMINAL Obese: obesity present. II - ANESTHESIA PLAN ASA Score: 3 Anesthetic Plan: MAC The patient is not a current smoker. NPO Status: adequate Beta Mj Monitoring Plan Monitoring plan: standard ASA. Post Procedure Analgesic Plan Postoperative analgesic plan: multimodal analgesia. Informed Consent Anesthetic risks, benefits, alternatives, personnel and consent discussed: yes. Patient / Responsible Democrat agrees to proceed: yes Patient / Surrogate agrees to blood products: blood products not planned DNR status not reviewed with patient and/or family prior to surgery. Significant changes in the patient condition since the History and Physical, not otherwise documented in primary service progress note: no. Potential Anesthesia issues that may suggest increased risk of complications or contraindication to planned procedure: none. No vitals data found for the desired time range. Facility-Administered Medications as of 03/20/2025 Medication Dose Route Frequency acetaminophen 1,000 mg tab(s) (TYLENOL) 1,000 mg ORAL Pre-Op Once promethazine 12.5 mg tab(s) (PHENERGAN) 12.5 mg ORAL Pre-Op Once famotidine 20 mg injection (PEPCID) 20 mg INTRAVENOUS Pre-Op Once Outpatient Medications as of 03/20/[address] (CYMBALTA) 30 mg capsule Take 1 capsule by mouth once daily. insulin degludec (TRESIBA FLEXTOUCH) 100 unit/mL (3 mL) injection pen Inject 35 Units subcutaneously once daily. MYRBETRIQ 25 mg Tb24 Take 1 tablet by mouth once daily. ferrous sulfate (FEOSOL) 325 mg (65 mg iron) tablet Take 325 mg by mouth. LASIX 20 mg tablet 20 mg. (Patient taking differently: Take 20 mg by mouth every other day.) omega-3 DHA-EPA (FISH OIL) 1,200 (144-216) mg capsule Take 1 capsule by mouth once daily. acetaminophen (TYLENOL) 325 mg cap Take by mouth as needed for pain. magnesium oxide (MAG-OX) 400 mg (241.3 mg magnesium) tablet Take 400 mg by mouth once daily. NOVOLOG FLEXPEN 100 unit/mL inpn Inject 34 Units subcutaneously three times a day before meals. LANTUS SOLOSTAR 100 unit/mL (3 mL) inpn Inject 30-35 Units subcutaneously daily at bedtime. alendronate (FOSAMAX) 70 mg tablet Take 1 tablet by mouth every other week. Omeprazole 40 mg capsule Take 1 capsule by mouth once daily. simvastatin (ZOCOR) 10 mg tablet Take 1 tablet by mouth once daily. valsartan (DIOVAN) 40 mg tablet Take 1 tablet by mouth two times a day. LORazepam (ATIVAN) 0.5 mg Take 0.5 mg by mouth. (Patient not taking: Reported on 03/01/2025) Insulin [place], Disposable, 32 gauge x 32 1 each. LINZESS 145 mcg capsule 145 MCG ORALLY EVERY MORNING (Patient taking differently: Take 145 mcg by mouth every 3 days in the morning.) ibuprofen (ADVIL ORAL) Take by mouth. (Patient not taking: Reported on 03/01/2025) aspirin, enteric coated (ASPIRIN, ENTERIC COATED) 81 mg EC tablet Take 1 tablet by mouth once daily. Hold for 5 days post operatively (Patient taking differently: Take 81 mg by mouth once daily.) oxybutynin ER (DITROPAN XL) 10 mg 24 hr tablet Take 10 mg by mouth once daily. (Patient not taking: Reported on 01/17/2025) ONETOUCH ULTRA TEST test strip three times daily. I have interviewed and examined the patient. I have reviewed the medical record and/or the pre-anesthesia evaluation, pertinent labs, and test results. This contains updated information obtained within 48 hours of Surgery/Procedure. SIGNATURE: Imani Banks MD PATIENT NAME: Orion Sorensen DATE (more content not included)... Normal [facility] HISTORY PHYSICALon 5 HISTORY PHYSICAL HNO ID: [id number] Author: CHAU HOROWITZ MD Service: Orthopaedic Surgery Author Type: Physician Type: H&P Filed: 03/20/2025 11:04 Note Text: Hand Surgery History and Physical Please refer to my/my PA's prior note for full History. I saw and examined the pt HPI: There is no acute change in the pt's health PMH: PAST MEDICAL HISTORY Diagnosis Date Arthritis Bilateral hand pain Bilateral wrist pain Breast cancer (HCC) 2018 right Chronic kidney disease, stage III (moderate) (HCC) Coronary artery disease DM type 2 (diabetes mellitus, type 2) (HCC) HTN (hypertension) pt denies Hyperlipidemia Snoring 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) ALLERGIES Allergen Reactions Celebrex [Celecoxib] Hives Femara [Letrozole] Other: See Comments Severe muscle AND joint pain Ramipril Anaphylaxis Vioxx [Rofecoxib] Hives Ferumoxytol Other: See Comments PAST SURGICAL HISTORY Procedure Laterality Date ABDOMINAL SURGERY HX ANESTH, SECTION 1981 BREAST LUMPECTOMY HX Left 1979 BREAST SURGERY HX Bilateral 2017 mastectomy COLON SURGERY HX 2017 colorectal cancer COLONOSCOPY 08/22/2021 repeat in 1 year COLONOSCOPY - DIAGNOSTIC 09/20/2020 EGD 08/22/2021 EYE SURGERY HX Bilateral 2011 cataract F COLONOSCOPY WITH BIOPSY 08/01/2019 Dr. Marifer Foy LAPS COLECTOMY PRTL W/COLOPXTSTMY LW ANAST 09/20/2019 Dr. Tash HIGUERA MOBLJ SPLENIC FLXR PFRMD W/PRTL COLECTOMY 09/20/2019 Dr. Bianchi MASTECTOMY, SIMPLE, COMPLETE 09/13/2017 right breast mastectomy, right axillary sentinal lymph node [facility], left breast prophylactic breast mastectomy NECK SURGERY HX 07/21/2024 C4-T1 PCDF PAST SURGICAL HISTORY OF Left 1985 ankle repair PAST SURGICAL HISTORY OF Left 1978 Fibrosis excised from Breast PAST SURGICAL HISTORY OF 07/2021 Excision Basal Cell, Nose PROCEDURE RM-COLONSCOPY W/BX 2013 TONSILLECTOMY HX as a child SOCIAL HISTORY[1] Review of Systems: A 10-point review of systems was completed and is otherwise non-contributory Objective: Vitals: Current Range 37 ?C (98.6 ?F) Temp Min: 37 ?C (98.6 ?F) Max: 37 ?C (98.6 ?F) 77 Pulse Min: 77 Max: 77 130/61 BP Min: 130/61 Max: 130/61 18 Resp Min: 18 Max: 18 94 % SpO2 Min: 94 % Max: 94 % Exam: GEN: Calm and comfortable PULM: No increased work of breathing, no audible wheezing, clear to auscultation CARDIO: Ext warm and well perfused, regular rate and rhythm on palpation Extremity: Consistent w/ the most recent note in the chart Assessment/Plan: Proceed w/ OR as scheduled Chau Horowitz MD Hand Surgery [1] Social History Tobacco Use Smoking status: Former Current packs/day: 0.00 Average packs/day: 1 pack/day for 16.0 years (16.0 ttl pk-yrs) Types: Cigarettes Start date: 08/02/1975 Quit date: 08/02/1991 Years since quittin.6 Passive exposure: Past Smokeless tobacco: Never Vaping Use Vaping status: Never Used Substance Use Topics Alcohol use: Yes Comment: occasionally Drug use: No Normal [facility] OPERATIVE NOon 03-20-2025 OPERATIVE NO HNO ID: [id number] Author: CHAU HOROWITZ MD Service: Orthopaedic Surgery Author Type: Physician Type: Operative Report Filed: 03/20/2025 12:12 Note Text: Hand Surgery Operative Note PATIENT: Orion Sorensen [id number] DATE OF SURGERY: 03/20/2025 PREOPERATIVE DIAGNOSES: Right carpal tunnel syndrome POSTOPERATIVE DIAGNOSES: Same OPERATION: Neuroplasty and/or transposition; median nerve at carpal tunnel - carpal tunnel open release Biopsy, soft tissue of forearm and/or wrist; deep with 59 modifer - deep wrist biopsy for amyloid Nerve block of the median nerve at the wrist ANESTHESIA: Local and MAC ATTENDING SURGEON: Chau Horowitz MD BUNCH BREAKER SURGEON: There were no qualified residents available to assist in the case Katya Navarrete PA-C was the first assist Under the supervision of the attending surgeon, they assisted during the entire operation and their involvement included: positioning the patient, prepping the surgical site, draping the surgical field, retraction during the approach, assistance during the critical steps of the procedure, wound closure, and application of the dressing. START/END TIMES: Incision/Procedure Start Time: 11:30 AM Incision Close/Procedure End Time: 11:50 AM TOURNIQUET TIME: 15 min EBL: Minimal SPECIMENS: Carpal tunnel biopsy to Pathology to look for Amyloid IMPLANTS: None COMPLICATIONS: None COUNTS: All counts were noted to be correct prior to skin closure. DISPOSITION: To PACU and then home CLINICAL INDICATIONS: See office notes for complete details. The alternatives, risks, benefits and indications of surgery were discussed with the patient. The patient verbalized understanding of the risks as well as the alternatives to surgery. The patient wished to proceed with operative intervention. A signed and witnessed informed consent was confirmed to be completed. The site was marked by the surgical team and confirmed by the patient. FINDINGS: Complete release of the transverse carpal ligament under direct visualization. DESCRIPTION OF PROCEDURE: The patient was placed in the supine position on a regular operating table with a hand table. All body parts were well padded and protected to make sure there were no pressure points. A timeout was performed confirming the patient, the laterality, and the procedure being performed. Antibiotics were administered. MAC anesthesia was given. Local anesthesia w/ a total of 10 cc?s of 1% lidocaine w/ 1:100,000 epi was administered to the surgical site. The surgical site was prepped and draped with sterile technique. Carpal tunnel release Esmark was applied and tourniquet was raised. An approximately 4 cm longitudinal incision was centered over the carpal tunnel in line w/ the RF extending from Baker's cardinal line to the distal wrist crease. The incision was carried through skin and subcutaneous tissue. Dissection continued sharply through the palmar aponeurosis with a scalpel. The transverse carpal ligament was identified. A longitudinal incision was made in the transverse carpal ligament. The distal extent of the transverse carpal ligament was identified and overlying tissue was exposed with scissors. The ligament was released with knife and the yellow out pooching fat was seen. Spreading w/ scissors confirmed complete distal release Next, the superficial and deep aspects of the proximal extent of the ligament were developed with scissors. The ligament was first incised w/ a scalpel. The ligament was then released 3 cm proximal across the wrist crease with scissors. Examination of the carpal tunnel demonstrated complete release of the transverse carpal ligament thru the entire surgical field. There was excellent decompression, there was no obvious mass in the carpal tunnel. The median nerve was left protected under the radial leaflet of the released transverse carpal ligament. As a separate procedure independent of the carpal tunnel release, I performed a deep biopsy of the wrist specifically to evaluate for the presence of amyloid with the goal of diagnosing amyloidosis before the onset of more serious systemic manifestations. I first exposed the flexor tendons deep in the carpal tunnel. Then I used scissors to carefully excise a small amount of the tenosynovium while protecting the tendon underneath. This was sent to pathology with instructions to evaluate for amyloid. The incision was thoroughly irrigated. Wound was closed w/ nylon sutures on the skin. At the conclusion of the procedure the incision was dressed with baci, adaptic, Kerlix, and coban. Tourniquet was dropped. The patient was transferred to the PACU in stable condition. POST-OP: Protected WBing x2-4 wks Start finger AROM immediately Dressing down POD7 SURGICAL ATTENDANCE: I, the attending surgeon was present/available throughout the entire procedure. [facility] Pathology biopsy report Josiah (Tiss)on 03-20-2025 ADDENDUM 1: 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 Comment on above: Order Comment: Spectamara garcia Type: TISSUE SPECIMEN Ordering Facility: [facility] Address: [address] [place] [address] Result Comment: Yuri Hamilton Test (LDT) Disclaimer: Performance characteristics of immunohistochemical, immunofluorescent, and chromogenic in-situ hybridization tests have been determined by the performing laboratory within [facility]'s [facility] Pathology and Laboratory Medicine Department ([facility], [facility], [facility], [facility], [facility], [facility], or [facility]) in a manner consistent with CLIA requirements. One or more of these tests may not have been cleared or approved by the FDA. [facility] is regulated under CLIA as qualified to perform high-complexity testing. These tests are used for clinical purposes. These should not be regarded as investigational or for research. Positive and negative controls stain appropriately. Performed By: #### 6 6121-5 #### [facility] CLIA [id number] [address] [place] [address] [place] CASE REPORT Normal [facility] Comment on above: Order Comment: Larissa garcia Type: TISSUE SPECIMEN Ordering Facility: [facility] Address: [address] [place] [address] Result Comment: [facility] Pathology Report Case: [id number] Authorizing Provider: Chau Horowitz MD Collected: 03/20/2025 01:10 PM Ordering Location: [facility] Surgery Received: 03/20/2025 01:48 PM Pathologist: Nilda Arshad MD Specimen: Soft Tissue (Not otherwise specified), right wrist carpal tunnel Performed By: #### 6 6121-5 #### [facility] CLIA [id number] [address] [place] [address] [place] CLINICAL HISTORY Normal [facility] Comment on above: Order Comment: Larissa garcia Type: TISSUE SPECIMEN Ordering Facility: [facility] Address: [address] [place] [address] Result Comment: Pre- op diagnosis: Carpal tunnel syndrome, right [G56.01] Performed By: #### 6 6121-5 #### [facility] CLIA [id number] [address] [place], [place] [id number] [place] DIAGNOSIS COMMENT Mass spectrometry wi ll be ordered and reported in an addendum. [facility] Comment on above: Order Comment: Speci men Type: TISSUE SPECIMEN Ordering Facility: [facility] Address: [address] [place] [address] Performed By: #### 6 6121-5 #### [facility] CLIA [id number] [address] [place], [place] [address] [facility] [place] FINAL DIAGNOSIS [facility] Comment on above: Order Comment: Speci men Type: TISSUE SPECIMEN Ordering Facility: [facility] Address: [address] [place] [address] Result Comment: A. S oft tissue, right wrist carpal tunnel, excision: - Fibroconnective tissue with focal amyloid deposition. - [place] red special stain highlights the amyloid deposits. at 1416 EDT Performed By: #### 6 6121-5 #### [facility] CLIA [id number] [address] [place] [address] [facility] [place] Comment on above: Order Comment: Speci men Type: TISSUE SPECIMEN Ordering Facility: [facility] Address: [address] [place] [address] Result Comment: Diag nostic interpretation performed at: [facility], [address] [place] [address] CLIA# [id number] Printing Specialist: Dawson Cole MD Performed By: #### 6 6121-5 #### [facility] CLIA [id number] [address] [place] [address] [place] GROSS DESCRIPTION [facility] Comment on above: Order Comment: Speci men Type: TISSUE SPECIMEN Ordering Facility: [facility] Address: [address] [place] [address] Result Comment: A. S oft Tissue (Not otherwise specified) Received in formalin labeled right wrist carpal tunnel is a 1.7 x 0.3 x 0.2 cm clark-white, softened segment of fibrous tissue. The specimen is submitted intact in cassette A1. Gross examination performed at [facility], [address] [place] [address] JXM 03/20/25 5:03 PM Performed By: #### 6 6121-5 #### [facility] CLIA [id number] [address] [place], [place] [address] [place] [address] [place] CBC W Auto Differential pane l (Bld)on 03-01-2025 Basophils (Bld) [#/Vol] 0.04 10*3/uL [facility] Basophils/100 WBC (Bld) 0.7 % [facility] Differential cell count method Nom (Bld) Auto [facility] Eosinophils (Bld) [#/Vol] 0.32 10*3/uL [facility] Eosinophils/100 WBC (Bld) 5.5 % [facility] Erythrocyte distribution width (RBC) [Ratio] 15.6 % High 11.5 - 15.0 % [facility] Hematocrit (Bld) [Volume fraction] 31.5 % Low 36.0 - 46.0 % [facility] Hemoglobin (Bld) [Mass/Vol] 10.5 g/dL Low 11.5 - 15.5 g/dL [facility] Immature granulocytes (Bld) [#/Vol] [facility] Immature granulocytes/100 WBC (Bld) 0.3 % [facility] Interpretation and review of laboratory results Abnormal [facility] Lymphocytes (Bld) [#/Vol] 1.95 10*3/uL [facility] Lymphocytes/100 WBC (Bld) 33.7 % [facility] MCH (RBC) [Entitic mass] 29.2 pg 26.0 - 34.[address] [facility] MCHC (RBC) [Mass/Vol] 33.3 g/dL 30.5 - 36.0 g/dL [facility] MCV (RBC) [Entitic vol] 87.5 fL 80.0 - 100.[address] [facility] Monocytes (Bld) [#/Vol] 0.43 10*3/uL [facility] Monocytes/100 WBC (Bld) 7.4 % [facility] Neutrophils (Bld) [#/Vol] 3.02 10*3/uL [facility] Neutrophils/100 WBC (Bld) 52.4 % [facility] Nucleated RBC (Bld) [#/Vol] NINF [facility] Nucleated RBC/100 WBC (Bld) [Ratio] 0 % /[address] [facility] Platelet mean volume (Bld) [Entitic vol] 7.8 fL Low 9.0 - 12.[address] [facility] Platelets (Bld) [#/Vol] 284 10*3/uL [facility] RBC (Bld) [#/Vol] 3.6 10*6/uL Low 3.90 - 5.2 0 m/uL [facility] WBC (Bld) [#/Vol] 5.78 10*3/uL [facility] Basophils (Bld) [#/Vol] 0.04 10*3/uL Normal <0.11 [facility] Comment on above: Order Comment: Speci men Type: BLOOD SPECIMEN Ordering Facility: [facility] Address: [address] [place] [address] Performed By: #### 5 7021-8 #### [id number] [address] [place] [address] [place] Basophils/100 WBC (Bld) 0.7 % Normal [facility] Comment on above: Order Comment: Speci men Type: BLOOD SPECIMEN Ordering Facility: [facility] Address: [address] [place] [address] Performed By: #### 5 7021-8 #### [facility] CLIA [id number] [address] [place] [address] [place] Differential cell count method Nom (Bld) Auto Normal [facility] Comment on above: Order Comment: Speci men Type: BLOOD SPECIMEN Ordering Facility: [facility] Address: [address] [place] [address] Performed By: #### 5 7021-8 #### [facility] CLIA [id number] [address] [place] [address] [place] Eosinophils (Bld) [#/Vol] 0.32 10*3/uL Normal <0.46 [facility] Comment on above: Order Comment: Speci men Type: BLOOD SPECIMEN Ordering Facility: [facility] Address: [address] [place] [address] Performed By: #### 5 7021-8 #### [facility] CLIA [id number] [address] [place] [address] [place] Eosinophils/100 WBC (Bld) 5.5 % Normal [facility] Comment on above: Order Comment: Speci men Type: BLOOD SPECIMEN Ordering Facility: [facility] Address: [address] [place] [address] Performed By: #### 5 7021-8 #### [facility] CLIA [id number] [address] [place] [address] [place] Erythrocyte distribution width (RBC) [Ratio] 15.6 % High 11.5-15.0 [facility] Comment on above: Order Comment: Speci men Type: BLOOD SPECIMEN Ordering Facility: [facility] Address: [address] [place] [address] Performed By: #### 5 7021-8 #### [facility] CLIA [id number] [address] [place] [address] [place] Hematocrit (Bld) [Volume fraction] 31.5 % Low 36.0-46.0 [facility] Comment on above: Order Comment: Speci men Type: BLOOD SPECIMEN Ordering Facility: [facility] Address: [address] [place] [address] Performed By: #### 5 7021-8 #### [facility] CLIA [id number] [address] [place] [address] [place] Hemoglobin (Bld) [Mass/Vol] 10.5 g/dL Low 11.5-15.5 [facility] Comment on above: Order Comment: Speci men Type: BLOOD SPECIMEN Ordering Facility: [facility] Address: [address] [place] [address] Performed By: #### 5 7021-8 #### [facility] CLIA [id number] [address] [place] [address] [place] Immature granulocytes (Bld) [#/Vol] 10*3/uL Normal <0.10 [facility] Comment on above: Order Comment: Speci men Type: BLOOD SPECIMEN Ordering Facility: [facility] Address: [address] [place] [address] Performed By: #### 5 7021-8 #### [facility] CLIA [id number] [address] [place] [address] [place] Immature granulocytes/100 WBC (Bld) 0.3 % Normal [facility] Comment on above: Order Comment: Speci men Type: BLOOD SPECIMEN Ordering Facility: [facility] Address: [address] [place] [address] Performed By: #### 5 7021-8 #### [facility] CLIA [id number] [address] [place] [address] [place] Lymphocytes (Bld) [#/Vol] 1.95 10*3/uL Normal 1.00-4.00 [facility] Comment on above: Order Comment: Speci men Type: BLOOD SPECIMEN Ordering Facility: [facility] Address: [address] [place] [address] Performed By: #### 5 7021-8 #### [facility] CLIA [id number] [address] [place] [address] [place] Lymphocytes/100 WBC (Bld) 33.7 % Normal [facility] Comment on above: Order Comment: Speci men Type: BLOOD SPECIMEN Ordering Facility: [facility] Address: [address] [place] [address] Performed By: #### 5 7021-8 #### [facility] CLIA [id number] [address] [place] [address] [place] MCH (RBC) [Entitic mass] 29.2 pg Normal 26.0-34.0 [facility] Comment on above: Order Comment: Speci men Type: BLOOD SPECIMEN Ordering Facility: [facility] Address: [address] [place] [address] Performed By: #### 5 7021-8 #### [facility] CLIA [id number] [address] [place] [address] [place] MCHC (RBC) [Mass/Vol] 33.3 g/dL Normal 30.5-36.0 [facility] Comment on above: Order Comment: Speci men Type: BLOOD SPECIMEN Ordering Facility: [facility] Address: [address] [place] [address] Performed By: #### 5 7021-8 #### [facility] [id number] [address] [place] [address] [place] MCV (RBC) [Entitic vol] 87.5 fL Normal 80.0-100.0 [facility] Comment on above: Order Comment: Speci men Type: BLOOD SPECIMEN Ordering Facility: [facility] Address: [address] [place] [address] Performed By: #### 5 7021-8 #### [facility] [id number] [address] [place] [address] [place] Monocytes (Bld) [#/Vol] 0.43 10*3/uL Normal <0.87 [facility] Comment on above: Order Comment: Speci men Type: BLOOD SPECIMEN Ordering Facility: [facility] Address: [address] [place] [address] Performed By: #### 5 7021-8 #### [facility] [id number] [address] [place] [address] [place] Monocytes/100 WBC (Bld) 7.4 % Normal [facility] Comment on above: Order Comment: Speci men Type: BLOOD SPECIMEN Ordering Facility: [facility] Address: [address] [place] [address] Performed By: #### 5 7021-8 #### [facility] CLIA [id number] [address] [place] [address] [place] Neutrophils (Bld) [#/Vol] 3.02 10*3/uL Normal 1.45-7.50 [facility] Comment on above: Order Comment: Speci men Type: BLOOD SPECIMEN Ordering Facility: [facility] Address: [address] [place] [address] Performed By: #### 5 7021-8 #### [facility] CLIA [id number] [address] [place] [address] [place] Neutrophils/100 WBC (Bld) 52.4 % Normal [facility] Comment on above: Order Comment: Speci men Type: BLOOD SPECIMEN Ordering Facility: [facility] Address: [address] [place] [address] Performed By: #### 5 7021-8 #### [facility] CLIA [id number] [address] [place] [address] [place] Nucleated RBC (Bld) [#/Vol] 10*3/uL Normal <0.01 [facility] Comment on above: Order Comment: Speci men Type: BLOOD SPECIMEN Ordering Facility: [facility] Address: [address] [place] [address] Performed By: #### 5 7021-8 #### [facility] CLIA [id number] [address] [place] [address] [place] Nucleated RBC/100 WBC (Bld) [Ratio] 0.0 /100 WBC Normal [facility] Comment on above: Order Comment: Speci men Type: BLOOD SPECIMEN Ordering Facility: [facility] Address: [address] [place] [address] Performed By: #### 5 7021-8 #### [facility] CLIA [id number] [address] [place] [address] [place] Platelet mean volume (Bld) [Entitic vol] 7.8 fL Low 9.0-12.7 [facility] Comment on above: Order Comment: Speci men Type: BLOOD SPECIMEN Ordering Facility: [facility] Address: [address] [place], [place] [address] Performed By: #### 5 7021-8 #### [facility] CLIA [id number] [address] [place] [address] [place] Platelets (Bld) [#/Vol] 284 10*3/uL Normal 150-400 [facility] Comment on above: Order Comment: Speci men Type: BLOOD SPECIMEN Ordering Facility: [facility] Address: [address] [place], [place] [address] Performed By: #### 5 7021-8 #### [facility] CLIA [id number] [address] [place] [address] [place] RBC (Bld) [#/Vol] 3.60 10*6/uL Low 3.90-5.20 [facility] Comment on above: Order Comment: Speci men Type: BLOOD SPECIMEN Ordering Facility: [facility] Address: [address] [place] [address] Performed By: #### 5 7021-8 #### [facility] CLIA [id number] [address] [place] [address] [place] WBC (Bld) [#/Vol] 5.78 10*3/uL Normal 3.70-11.00 [facility] Comment on above: Order Comment: Speci men Type: BLOOD SPECIMEN Ordering Facility: [facility] Address: [address] [place], [place] [address] Performed By: #### 5 7021-8 #### [facility] CLIA [id number] [address] [place] [id number] [place] Comprehensive metabolic 2000 panelOrdered By: Autumn Bhatia on 03-01-2025 Albumin [Mass/Vol] 4 g/dL 3.9 - 4.9 g/dL [facility] ALP [Catalytic activity/Vol] 78 U/L 34 - 123 U/L [facility] ALT [Catalytic activity/Vol] 63 U/L High 7 - 38 U/L [facility] Anion gap [Moles/Vol] 12 mmol/L 8 - 15 mmol/L [facility] AST [Catalytic activity/Vol] 92 U/L High 13 - 35 U/L [facility] Bilirubin [Mass/Vol] 0.2 mg/dL 0.2 - 1 .3 mg/dL [facility] Calcium [Mass/Vol] 9.8 mg/dL 8.5 - 10. 2 mg/dL [facility] Chloride [Moles/Vol] 99 mmol/L 98 - 10 7 mmol/L [facility] CO2 [Moles/Vol] 24 mmol/L 22 - 30 mmol/L [facility] Creatinine [Mass/Vol] 1 mg/dL High 0.58 - 0.96 mg/dL [facility] GFR/1.73 sq M.predicted among non-blacks MDRD (S/P/Bld) [Vol rate/Area] 59 mL/min/{1.73_m2} Low - PINF [facility] Comment on above: Estimated Glomerular Filtration Rate (eGFR) is calculated using the 2020 CKD-EPI creatinine equation. This equation utilizes serum creatinine, sex, and age as parameters. The creatinine assay has traceable calibration to isotope dilution-mass spectrometry. Refer to KDIGO guidelines for clinical interpretation. In patients with unstable renal function, e.g. those with acute kidney injury, the eGFR may not accurately reflect actual GFR. Glucose [Mass/Vol] 199 mg/dL High 74 - 99 mg/dL [facility] Comment on above: The [place] Diab[employer] Association (ADA) provides guidance for cutoff values for fasting glucose and random glucose. The ADA defines fasting as no caloric intake for at least 8 hours. Fasting plasma glucose results between 100 to 125 mg/dL indicate increased risk for diabetes (prediabetes). Fasting plasma glucose results greater than or equal to 126 mg/dL meet the criteria for diagnosis of diabetes. In the absence of unequivocal hyperglycemia, results should be confirmed by repeat testing. In a patient with classic symptoms of hyperglycemia or hyperglycemic crisis, random plasma glucose results greater than or equal to 200 mg/dL meet the criteria for diagnosis of diabetes. Reference: Standards of Medical Care in Diabetes 2016, [place] [employer]. Diabetes Care. 2016.39(Suppl 1). Interpretation and review of laboratory results Abnormal [facility] Potassium [Moles/Vol] 4 mmol/L 3.7 - 5.1 mmol/L [facility] Protein [Mass/Vol] 7.6 g/dL 6.3 - 8.0 g/dL [facility] Sodium [Moles/Vol] 135 mmol/L Low 136 - 144 mmol/L [facility] Urea nitrogen [Mass/Vol] 16 mg/dL 7 - 21 mg/dL [facility] Comprehensive metabolic 2000 panelon 03-01-2025 Albumin [Mass/Vol] 4.0 g/dL Normal 3.9-4.9 [facility] Rehabilitation Comment on above: Order Comment: Larissa garcia Type: BLOOD SPECIMEN Ordering Facility: [facility] Address: [address] [place] [address] Performed By: #### 2 4323-8 #### [facility] CLIA [id number] [address] [place] [address] [place] ALP [Catalytic activity/Vol] 78 U/L Normal 34-123 [facility] Comment on above: Order Comment: Larissa garcia Type: BLOOD SPECIMEN Ordering Facility: [facility] Address: [address] [place] [address] Performed By: #### 2 4323-8 #### [facility] CLIA [id number] [address] [place] [address] [place] ALT [Catalytic activity/Vol] 63 U/L High 7-38 [facility] Comment on above: Order Comment: Larissa garcia Type: BLOOD SPECIMEN Ordering Facility: [facility] Address: [address] [place] [address] Performed By: #### 2 4323-8 #### [facility] CLIA [id number] [address] [place] [address] [place] Anion gap [Moles/Vol] 12 mmol/L Normal 8-15 [facility] Comment on above: Order Comment: Speci men Type: BLOOD SPECIMEN Ordering Facility: [facility] Address: [address] [place] [address] Performed By: #### 2 4323-8 #### [facility] CLIA [id number] [address] [place] [address] [place] AST [Catalytic activity/Vol] 92 U/L High 13-35 [facility] Comment on above: Order Comment: Speci men Type: BLOOD SPECIMEN Ordering Facility: [facility] Address: [address] [place] [address] Performed By: #### 2 4323-8 #### [facility] CLIA [id number] [address] [place] [address] [place] Bilirubin [Mass/Vol] 0.2 mg/dL Normal 0.2-1.3 [facility] Comment on above: Order Comment: Speci men Type: BLOOD SPECIMEN Ordering Facility: [facility] Address: [address] [place] [address] Performed By: #### 2 4323-8 #### [facility] CLIA [id number] [address] [place] [address] [place] Calcium [Mass/Vol] 9.8 mg/dL Normal 8.5-10.2 [facility] Comment on above: Order Comment: Speci men Type: BLOOD SPECIMEN Ordering Facility: [facility] Address: [address] [place] [address] Performed By: #### 2 4323-8 #### [facility] CLIA [id number] [address] [place] [address] [place] Chloride [Moles/Vol] 99 mmol/L Normal 98-107 [facility] Comment on above: Order Comment: Speci men Type: BLOOD SPECIMEN Ordering Facility: [facility] Address: [address] [place], [place] [id number] Performed By: #### 2 4323-8 #### [facility] CLIA [id number] [address] [place] [address] [place] CO2 [Moles/Vol] 24 mmol/L Normal 22-30 [facility] Comment on above: Order Comment: Speci men Type: BLOOD SPECIMEN Ordering Facility: [facility] Address: [address] [place] [address] Performed By: #### 2 4323-8 #### [facility] CLIA [id number] [address] [place] [address] [place] Creatinine [Mass/Vol] 1.00 mg/dL High 0.58-0.96 [facility] Comment on above: Order Comment: Speci men Type: BLOOD SPECIMEN Ordering Facility: [facility] Address: [address] [place] [address] Performed By: #### 2 4323-8 #### [facility] [id number] [address] [place] [address] [place] eGFRcr SerPlBld CKD-EPI 2020 59 mL/min/1.73m??? Low >=60 [facility] Comment on above: Order Comment: Speci men Type: BLOOD SPECIMEN Ordering Facility: [facility] Address: [address] [place] [address] Result Comment: Jany mated Glomerular Filtration Rate (eGFR) is calculated using the 2020 CKD-EPI creatinine equation. This equation utilizes serum creatinine, sex, and age as parameters. The creatinine assay has traceable calibration to isotope dilution-mass spectrometry. Refer to KDIGO guidelines for clinical interpretation. In patients with unstable renal function, e.g. those with acute kidney injury, the eGFR may not accurately reflect actual GFR. Performed By: #### 2 4323-8 #### [facility] CLIA [id number] [address] [place] [address] [place] Glucose [Mass/Vol] 199 mg/dL High 74-99 [facility] Comment on above: Order Comment: Larissa garcia Type: BLOOD SPECIMEN Ordering Facility: [facility] Address: [address] [place], [place] [id number] Result Comment: The [place] Diabetes [employer] (ADA) provides guidance for cutoff values for fasting glucose and random glucose. The ADA defines fasting as no caloric intake for at least 8 hours. Fasting plasma glucose results between 100 to 125 mg/dL indicate increased risk for diabetes (prediabetes). Fasting plasma glucose results greater than or equal to 126 mg/dL meet the criteria for diagnosis of diabetes. In the absence of unequivocal hyperglycemia, results should be confirmed by repeat testing. In a patient with classic symptoms of hyperglycemia or hyperglycemic crisis, random plasma glucose results greater than or equal to 200 mg/dL meet the criteria for diagnosis of diabetes. Reference: Standards of Medical Care in Diabetes 2016, [place] [employer]. Diabetes Care. 2016.39(Suppl 1). Performed By: #### 2 4323-8 #### [facility] [id number] [address] [place] [address] [place] Potassium [Moles/Vol] 4.0 mmol/L Normal 3.7-5.1 [facility] Comment on above: Order Comment: Larissa garcia Type: BLOOD SPECIMEN Ordering Facility: [facility] Address: [address] [place] [address] Performed By: #### 2 4323-8 #### [facility] [id number] [address] [place] [address] [place] Protein [Mass/Vol] 7.6 g/dL Normal 6.3-8.0 [facility] Comment on above: Order Comment: Larissa garcia Type: BLOOD SPECIMEN Ordering Facility: [facility] Address: [address] [place] [address] Performed By: #### 2 4323-8 #### [facility] CLIA [id number] [address] [place] [address] [place] Sodium [Moles/Vol] 135 mmol/L Low 136-144 [facility] Comment on above: Order Comment: Larissa garcia Type: BLOOD SPECIMEN Ordering Facility: [facility] Address: [address] [place] [address] Performed By: #### 2 4323-8 #### [facility] CLIA [id number] [address] [place] [address] OF [facility] Urea nitrogen [Mass/Vol] 16 mg/dL Normal 7-21 [facility] Comment on above: Order Comment: Jeffreytamara garcia Type: BLOOD SPECIMEN Ordering Facility: [facility] Address: [address] [place] [address] Performed By: #### 2 4323-8 #### [facility] CLIA [id number] [address] [place] [address] [place] HISTORY PHYSICALon HISTORY PHYSICAL HNO ID: [id number] Author: LUZ ROMERO APRN.[email or web address] Service: ? Author Type: Nurse Practitioner Type: H&P Filed: 03/02/2025 12:04 Note Text: [facility] HISTORY AND PHYSICAL EXAMINATION SERVICE DATE: 03/01/2025 SERVICE TIME: 12:04 PM PRIMARY CARE PHYSICIAN: Terrie Goldstein CNP Assessment Patient has the following medical conditions which may affect giovani-operative course: 1. 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) (M48.02) - History of cervical spine stenosis with recent neck surgery in 2023. - Limited neck range of motion on exam. 2. Primary hypertension (I10) Stable and compliant with medication. Follows with PCP. Last 3 Encounter BP Readings: Date: BP: 03/01/2025 128/68 01/17/2025 115/54 10/12/2024 113/73 3. Hypercholesterolemia (E78.00) - Compliant on statin therapy. Encouraged lifestyle modifications. Body mass index is 36.62 kg/m?. 4. Coronary artery disease involving [place] coronary artery of [place] heart, unspecified whether angina present (I25.10) 5. Cardiac murmur (R01.1) - No recent chest pain, dizziness, or palpitations. - No cardiac stents or history of heart catheterization. - Denies any heart palpitations, edema, chest pain, shortness of breath, syncope, activity intolerance, or dizziness. - Reviewed stress echocardiogram from January 2024: normal systolic function, normal ejection fraction (50-60%), normal wall motion, no stress-induced myocardial ischemia. - Compliant on Aspirin 6. Gastroesophageal reflux disease, unspecified whether esophagitis present (K21.9) - Managed with omeprazole. 7. Diverticulitis of large intestine without perforation or abscess with bleeding (K57.33) - History of diverticulitis; affected portion removed during prior colon cancer surgery. 8. Stage 3 chronic kidney disease, unspecified whether stage 3a or 3b CKD ([facility]) (N18.30) - Advised to avoid NSAIDs; Tylenol is acceptable for pain management. 9. Type 2 diabetes mellitus with hyperglycemia, with long-term current use of insulin ([facility]) (E11.65) - Blood glucose levels running high (approximately 250 mg/dL). - Continue Novolog with meals and Tresiba at night. - Advised to take 75% of usual Tresiba dose prior to procedure; instructed to round down to nearest even number if necessary. 10. Anemia of chronic disease (D63.8) - Chronic anemia managed with Ferosol. - Recent labs in August; ongoing fatigue. - Order repeat labs to assess current anemia status. 11. Obesity, Class II, BMI 35-39.9 (E66.812) - Body mass index is 36.62 kg/m?. 12. History of breast cancer (Z85.3) - History of bilateral mastectomy with lymph node removal. 13. Anxiety with depression (F41.8) - History of anxiety and depression; recently discontinued duloxetine without medical supervision. - Discussed risks of abrupt discontinuation, including potential for suicidal ideation. - Recommended resuming antidepressant therapy or pursuing talk therapy; advised to consult with primary care provider. - Denies SI or HI. 14. History of colon cancer (Z85.038) - History of colon cancer with partial resection of rectum and intestines. ANESTHESIA FINDINGS: Intubation History: No history of difficult intubation. No abnormal airway history Significant Anesthesia Considerations: none Airway History: No history of difficult airway No abnormal airway history Bergman Activity Status Index: METS: Walk indoors, such as around the house (1.75 METs) Do light work around the house, such as dusting or washing dishes (2.70 METs) Take care of self; that is eating, dressing, bathing, using the toilet (2.75 METs) Walk a block or two on level ground (2.75 METs) Do moderate work around the house, such as vacuuming, sweeping floors, or carrying in groceries (3.50 METs) Climb a flight of stairs or walk up a hill (5.50 METs) DASI Score: 18.95 Patient denies any chest pain or undue shortness of breath with the above physical activity. Clinical Frailty Scale: 3. Well, with treated comorbid disease STOP-Bang Score: Has or is being treated for high blood pressure BMI greater than 35 kg/m2 Patient over 50 years old Denies snoring loudly Denies feeling tired, fatigued, or sleepy during the daytime Has not been observed to stop breathing or choking/gasping during sleep Does not have a large neck Non-male patient STOP-Bang Score: 3 I - PHYSICAL EVALUATION AIRWAY Patient intubated: No. Tracheostomy tube not present Mallampati: III. TM distance: >3 FB. Neck ROM: limited flexion and extension. Mouth opening: adequate. Short neck: no. Thick neck: no Microretrognathia/Micr onagthia/Recessed Chin: No DENTAL Dental findings: teeth intact. II - ANESTHESIA PLAN Anesthetic plan additional comments: *PACC/TCI - anesthesia choice. Beta Mj Monitoring Plan Post Procedure Analgesic Plan Prepared f (more content not included)... Normal [facility] CNOVon 02-23-2025 CNOV Normal [facility] MRI CERVICAL SPINE WO IVCONo n 02-14-2025 MRI CERVICAL SPINE WO IVCON Normal [facility] CNPNon 02-08-2025 CNPN Normal [facility] EMG(NEURO/NI)on 02-05-2025 Results can be seen in attached scanned documents. If you are a patient reviewing this test result, call the doctor who ordered the test with any questions. [facility] CNOVon 01-17-2025 CNOV Normal [facility] XR CERVICAL 4V AP/LAT/FLX/EX Ton 01-15-2025 XR CERVICAL 4V AP/LAT/FLX/EXT Normal [facility] Absolute lymphocyte countOrd ered By: Imani Bermudez on 12-28-2024 Lymphocytes Auto (Unsp spec) [#/Vol] 2.19 10*3/uL 0.83-4.51 [facility] Absolute neutrophil countOrd ered By: Imani Bermudez on 12-28-2024 Neutrophils (Bld) [#/Vol] 2.3 10*3/uL 2.0-7.7 [facility] Automated lymphocyte count a s percentage of total leukocytesOrdered By: Imani Bermudez on 12-28-2024 Lymphocytes/100 WBC Auto (Unsp spec) 43.1 % High 19-41 [facility] Basophil percentageOrdered B y: Imani Bermudez on 12-28-2024 Basophils/100 WBC (Bld) 0.8 % 0-1 [facility] CBC W/Diff, Automatedon 12-01 Absolute Lymph 2.19 X10 3/uL Normal 0.83-4.51 [facility] Comment on above: Performed By: #### L 100.0100, L500.2500 #### [facility] [address] [place], [address] Absolute Neut 2.3 X10 3/uL Normal 2.0-7.7 [facility] Comment on above: Performed By: #### L 100.0100, L500.2500 #### [facility] [address] [place], [address] Basophils/100 WBC (Bld) 0.8 % Normal 0-1 [facility] Comment on above: Performed By: #### L 100.0100, L500.2500 #### [facility] [address] [place], [address] Eosinophils/100 WBC (Bld) 3.0 % Normal 0-5 [facility] Comment on above: Performed By: #### L 100.0100, L500.2500 #### [facility] [address] [place], [address] Erythrocyte distribution width (RBC) [Ratio] 15.8 % High 11.6-14.6 [facility] Comment on above: Performed By: #### L 100.0100, L500.2500 #### [facility] [address] [place], [address] Hematocrit (Bld) [Volume fraction] 29.5 % Low 37-47 [facility] Comment on above: Performed By: #### L 100.0100, L500.2500 #### [facility] [address] [place], [address] Hemoglobin (Bld) [Mass/Vol] 9.9 g/dL Low 12.0-15.0 [facility] Comment on above: Performed By: #### L 100.0100, L500.2500 #### [facility] [address] [place], [address] IG% 0.200 Normal 0.0-0.9 [facility] Comment on above: Result Comment: IG% - Immature Granulocytes (promyelocytes, myelocytes and metamyelocytes) > 1% indicates that a LEFT SHIFT is Present. Performed By: #### L 100.0100, L500.2500 #### [facility] [address] [place], [address] Lymphocytes/100 WBC (Bld) 43.1 % High 19-41 [facility] Comment on above: Performed By: #### L 100.0100, L500.2500 #### [facility] [address] [place], [address] MCH (RBC) [Entitic mass] 29.0 pg Normal 27.0-32.0 [facility] Comment on above: Performed By: #### L 100.0100, L500.2500 #### [facility] [address] [place], [address] MCHC (RBC) [Mass/Vol] 33.6 g/dL Normal 32-36 [facility] Comment on above: Performed By: #### L 100.0100, L500.2500 #### [facility] [address] [place], [address] MCV (RBC) [Entitic vol] 86.5 fL Normal 81-99 [facility] Comment on above: Performed By: #### L 100.0100, L500.2500 #### [facility] [address] [place], [address] Monocytes/100 WBC (Bld) 7.7 % Normal 0-10 [facility] Comment on above: Performed By: #### L 100.0100, L500.2500 #### [facility] [address] [place], [address] Neutrophils/100 WBC (Bld) 45.2 % Low 47-70 [facility] Comment on above: Performed By: #### L 100.0100, L500.2500 #### [facility] [address] [place], [address] Nucleated RBC (Bld) [#/Vol] 0 10*3/uL Normal 0-5 [facility] Comment on above: Performed By: #### L 100.0100, L500.2500 #### [facility] [address] [place], [address] Platelet mean volume (Bld) [Entitic vol] 8.2 fL Normal 6.2-12.0 [facility] Comment on above: Performed By: #### L 100.0100, L500.2500 #### [facility] [address] [place], [address] Platelets (Bld) [#/Vol] 290 10*3/uL Normal 150-450 [facility] Comment on above: Performed By: #### L 100.0100, L500.2500 #### [facility] [address] [place], [address] RBC (Bld) [#/Vol] 3.41 10*6/uL Low 4.2-5.4 [facility] Comment on above: Performed By: #### L 100.0100, L500.2500 #### [facility] [address] [place], [address] RDW SD 50.1 fl High 35.1-43.9 [facility] Comment on above: Performed By: #### L 100.0100, L500.2500 #### [facility] [address] [place], [address] WBC (Bld) [#/Vol] 5.1 10*3/uL Normal 4.4-11.0 [facility] Comment on above: Performed By: #### L 100.0100, L500.2500 #### [facility] [address] [place], [address] Eosinophil percentageOrdered By: Imani Bermudez on 12-28-2024 Eosinophils/100 WBC (Bld) 3.0 % 0-5 [facility] Erythrocyte distribution wid th ratioOrdered By: Imani Bermudez on 12-28-2024 Erythrocyte distribution width (RBC) [Ratio] 15.8 % High 11.6-14.6 [facility] Erythrocyte distribution wid th standard deviationOrdered By: Imani Bermudez on 12-28-2024 Erythrocyte distribution width (RBC) [Ratio] 50.1 fl High 35.1-43.9 [facility] Gastroenterology Visit Repor ton 12-28-2024 Gastroenterology Visit Report [facility] [address] [place] [address] OFFICE VISIT Date of Service: 12/28/24 MR#: [id number] Acct: [id number] Name: ORION SORENSEN Rep #: [id number] : 1950 Provider: ROSENDO chung Age/Sex: 74/F Location: [facility] Status: Signed Intake Vital Signs 11/16/24 09:53 11/20/24 22:17 12/28/24 10:02 Height 5 ft 1 in 5 ft 1 in 5 ft 1 in Weight: 192 lb 4 oz BMI 36.3 BP 121/75 H Respiration 18 Pulse 73 Pulse Oximetry (%) 92 Oxygen Delivery Method room air Intake Visit Reasons: 6 WK FU Chief Complaint: follow-up Community Integration Specialist Required: No Accompanied by: Self Is patient in pain?: No Allergies celecoxib (From Celebrex) Allergy (Verified 12/28/24 09:59) Hives ramipril Allergy (Verified 12/28/24 09:59) Hives rofecoxib (From Vioxx) Allergy (Verified 12/28/24 09:59) Hives letrozole (From Femara) Adverse Reaction (Verified 12/28/24 09:59) Pain in joints Medications ???Medication ???Instructions ???Recorded ???Confirmed ???Type aspirin 81 mg tablet,delayed 81 mg PO DAILY HEART 09/06/17 0504/26 History release (Aspir-Low) omeprazole 40 mg capsule,delayed 40 mg PO DAILY REFLUX 09/06/17 History release simvastatin 10 mg tablet (Zocor) 10 mg PO QHS CHOLESTEROL 09/06/17 12/28/24 History valsartan 40 mg tablet (Diovan) 40 mg PO BID BP 09/06/17 12/28/24 History magnesium oxide 400 mg (241.3 mg 400 mg PO DAILY muscle spasm 10/3012/28/24 History magnesium) tablet iron polysaccharide complex-iron 1 tab PO DAILY #60 tabs 11/02/24 0 12/28/24 Rx heme polypeptide 28 mg tablet alendronate 70 mg tablet (Fosamax) 70 mg PO .QOWK osteoporosis 10/3112/28/24 History linaclotide 145 mcg capsule 145 mcg PO QAM #90 caps 11/16/24 0 12/28/24 Rx (Linzess) duloxetine 30 mg capsule,delayed 30 mg PO DAILY 11/20/24 12/28/24 H istory release furosemide 20 mg tablet 20 mg PO DAILY PRN swelling 12/28/24 History mirabegron 25 mg tablet,extended 25 mg PO DAILY 11/20/24 12/28/24 H istory release 24 hr (Myrbetriq) pen needle, diabetic 32 gauge x 11/20/24 12/28/24 History (BD Luz Elena 2nd Gen Pen Needle) insulin aspart U-100 100 unit/mL 20 unit (0.2 mL) subcut TIDCM 11/0112/28/24 Rx (3 mL) subcutaneous pen (Novolog DIABETES 30 days #0 mL FlexPen U-100 Insulin aspart) insulin glargine 100 unit/mL (3 25 unit (0.25 mL) subcut DINNER 12/28/24 Rx mL) subcutaneous pen (Lantus DIABETES 30 days #0 mL Solostar U-100 Insulin) Have you fallen in the past year?: Yes Nurse's Note: She stopped taking the Linzess because it wasn't really helping. [facility] Medical History History of lower GI bleeding Decompression injury of spinal cord Skin cancer Kidney stones Hypoglycemia Blood transfusion during current hospitalisation UTI (urinary tract infection) Bone fracture Breast cancer Colorectal cancer Cancer Depression Diabetes Kidney disease GERD (gastroesophageal reflux disease) Former smoker Atrial fibrillation Hypertension Family History Father CVA (cerebral vascular accident), Onset Age: 39 Sister Breast cancer Diabetes Mother Thyroid disorder Brother Arthritis Colon cancer Diabetes Mental disorder Psychiatric care CVA (cerebral vascular accident) Social History Smoking Status: Former smoker alcohol intake: current details: wine substance use type: does not use HPI HPI Chief Complaint: follow-up Details: ORION SORENSEN, is a 74 F who presents to the office today for 74y/o female presents for follow-up post admission for GIB with PMH of colon cancer. She reports experiencing intermittent episodes of BRBPR for a long time. She reports an increase in rectal bleeding post neck surgery on 07/28/2024. Increased use of Advil 400mg at HS for at least one month prior to presenting to ED on 10/30/2024 due to increase in bleeding. Hemoglobin was 9.7 on admission and dropped to 8.9. Colonoscopy revealed 7 mm SSP and 2 bleeding colonic angiodysplastic lesions treated with APC. She has discontinued use of nonsteroidal medication and denies any ongoing bleeding. She is taking iron daily and will repeat labs now. She complains of worsening constipation since starting Myrbetriq. I have started her on Linzess 145 mcg once daily and she will follow-up in 6 weeks. 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 Normal [facility] Hematocrit Auto (Bld) [Volum e fraction]Ordered By: Imani Bermudez on 12-28-2024 Hematocrit (Bld) [Volume fraction] 29.5 % Low 37-47 [facility] Hemoglobin measurementOrdere d By: Imani Bermudez on 12-28-2024 Hemoglobin (Bld) [Mass/Vol] 9.9 g/dL Low 12.0-15.0 [facility] Immature granulocytes/100 WB C Auto (Bld)Ordered By: Imani Bermudez on 12-28-2024 Immature granulocytes/100 WBC (Bld) 0.200 % 0.0-0.9 [facility] Comment on above: IG% - Immature Granu locytes (promyelocytes, myelocytes and metamyelocytes) > 1% indicates that a LEFT SHIFT is Present. Iron measurement (mass/mass) Ordered By: Imani Bermudez on 12-28-2024 Iron (Unsp spec) [Mass/Mass] 69 ug/dL 50-170 [facility] Iron+Iron Binding Capacityon 12-28-2024 Iron [Mass/Vol] 69 ug/dL Normal 50-170 [facility] Comment on above: Performed By: #### L 100.0100, L500.2500 #### [facility] Laboratory [address] [place], [place], [id number] IRON SATURATION 16.0 Normal 13-59 [facility] Comment on above: Performed By: #### L 100.0100, L500.2500 #### [facility] Laboratory [address] [place], [address] TIBC 443 ug/dL Normal 250-450 [facility] Comment on above: Performed By: #### L 100.0100, L500.2500 #### [facility] Laboratory [address] [place], [address] UIBC 374 ug/dL Normal 228-428 [facility] Comment on above: Performed By: #### L 100.0100, L500.2500 #### [facility] Laboratory [address] [place], [address] MCV (mean corpuscular volume ) determinationOrdered By: Imnai Bermudez on 12-28-2024 MCV (RBC) [Entitic vol] 86.5 fL 81-99 [facility] Mean corpuscular hemoglobin (MCH) determinationOrdered By: Imani Bermudez on 12-28-2024 MCH (RBC) [Entitic mass] 29.0 pg 27.0-32.0 [facility] Mean corpuscular hemoglobin concentration (MCHC) determinationOrdered By: Imani Bermudez on 12-28-2024 MCHC (RBC) [Mass/Vol] 33.6 g/dL 32-36 [facility] Mean platelet volume determi nationOrdered By: Imani Bermudez on 12-28-2024 Platelet mean volume (Bld) [Entitic vol] 8.2 fL 6.2-12.0 [facility] Monocyte percentageOrdered B y: Imani Bermudez on 12-28-2024 Monocytes/100 WBC (Bld) 7.7 % 0-10 [facility] Neutrophil percentageOrdered By: Imani Bermudez on 12-28-2024 Neutrophils/100 WBC (Bld) 45.2 % Low 47-70 [facility] No Panel InformationOrdered By: Imani Bermudez on 12-28-2024 Unsaturated Iron Binding Capacity 374 ug/dL 228-428 [facility] Nucleated red blood cell per centageOrdered By: Imani Bermudez on 12-28-2024 Nucleated RBC/100 WBC (Bld) [Ratio] 0 % 0-5 [facility] Platelet countOrdered By: Estrada Bermudez on 12-28-2024 Platelets (Bld) [#/Vol] 290 10*3/uL 150-450 [facility] RBC Auto (Bld) [#/Vol]Ordere d By: Imani Aidan on 12-28-2024 RBC (Bld) [#/Vol] 3.41 10*6/uL Low 4.2-5.4 [facility] Serum or plasma iron saturat ion measurement (mass fraction)Ordered By: Imani Bermudez on 12-28-2024 Iron saturation [Mass fraction] 16.0 % 13-59 [facility] White blood cell (WBC) count Ordered By: Imani Bermudez on 12-28-2024 WBC (Bld) [#/Vol] 5.1 10*3/uL 4.4-11.0 [facility] Bedside Glucoseon 11-22-2024 FINGERSTICK GLU 257 mg/dL High [address] [facility] Comment on above: Result Comment: FITZ GEMENT OF PATIENT CARE PER NURSING PROTOCOL Performed By: #### L 100.0100, L500.2500 #### [facility] [address] [facility] [address] FINGERSTICK GLU 127 mg/dL High [address] [place] [address] Comment on above: Result Comment: FITZ GEMENT OF PATIENT CARE PER NURSING PROTOCOL Performed By: #### L 100.0100, L500.2500 #### [facility] Laboratory [address] [place], [address] Discharge Instructionon 11-01 Discharge Instruction [facility] Medical Records Department [address] [place] [address] Instructions for Home/Discharge Instructions 11/22/24 1020 MR#: [id number] Acct: [id number] Name: ORION SORENSEN Rep #: [id number] : 1950 74 From: Ac Simms MD PCP: ROSENDO Perea Status:ADM IN Discharge Instructions Diet Discharge Diet: Low fat / Low cholesterol, 1800 Calorie Control Diet and 2000 mg Sodium Diet DC O2, CPAP, BIPAP needs Home O2 Discharge instructions: No Dressing / Incision Discharge Activity: Return to Normal Activity Weight Bearing Status: Weight bearing as tolerated Dressing / Incision Call your doctor if you observe: Fever of 101 or Higher, Coldness, Increased Pain, Numbness or Tingling, Change in Color, Inability to urinate, Inability to have a bowel movement, Shortness of breath, Dizziness, Fainting spells, Swelling in the ankles, Chest pain, Prolonged hiccupping, Increased palpitations (irregular heartbeat) and Calf discomfort Follow Up Care When: IN 2 WEEKS Test Results: Test results from this visit will be discussed in further detail at your follow-up appointment, if applicable. Discharge Plan Admission Admit Date/Time: 11/20/24 21:59 Primary Reason for Your Visit: Generalized weakness Attending Provider: Ac Simms Primary Care Provider: Terrie Goldstein NP Consulting Providers: Sushant Peralta Discharge Orders/Prescriptions Prescriptions: Continued methocarbamol 750 mg tablet 750 mg PO TID PRN (Reason: muscle spasms) Linzess 145 mcg capsule 145 mcg PO QAM Qty: 90 1RF simvastatin [Zocor] 10 MG tablet 10 mg PO QHS omeprazole 40 MG capsule,delayed release(DR/EC) 40 mg PO DAILY aspirin [Aspir-Low] 81 MG tablet,delayed release (DR/EC) 81 mg PO DAILY Patient Comments: WAS TOLD TO STOP 3 DAYS BEFORE valsartan [Diovan] 40 MG tablet 40 mg PO BID alendronate [Fosamax] 70 mg tablet 70 mg PO .QOWK furosemide 20 mg tablet 20 mg PO DAILY PRN (Reason: swelling) duloxetine 30 mg capsule,delayed release(DR/EC) 30 mg PO DAILY mirabegron [Myrbetriq] 25 mg tablet extended release 24 hr 25 mg PO DAILY sennosides-docusate sodium [Senexon-S] 8.6-50 mg tablet 2 tab PO DAILY (DME) pen needle, diabetic [BD Luz Elena 2nd Gen Pen Needle] 32 gauge x /32 needle MISCELLANEOUS UD magnesium oxide 400 mg (241.3 mg magnesium) tablet 400 mg PO DAILY iron polysac-iron heme polypep 28 mg tablet 1 tab PO DAILY Qty: 60 0RF Changed insulin aspart U-100 [Novolog FlexPen U-100 Insulin] 100 UNITS/ML insulin pen 20 unit subcut TIDCM 30 Days Qty: 0 0RF Patient Comments: varies between 24-28 TID per pt Rx Instructions: Hold if glucose less than 130 mg/dl insulin glargine [Lantus Solostar U-100 Insulin] 100 UNITS/ML insulin pen 25 unit subcut DINNER 30 Days Qty: 0 0RF Patient Comments: per pt 35-38 units depending on the day Rx Instructions: Hold if glucose less than 130 mg/dl Referrals / Follow Up: Terrie Goldstein NP, RN PROGRESSIVE CARE-C [Primary Care Provider] - Terrie Goldstein NP-C [[facility]] - Disposition Disposition (needs filled in before D/C Order can be placed): Home, Self Care 11/22/24 1201 Ac Simms MD CC: RN PROGRESSIVE CAREThienC Terrie Goldstein; Dr. Sushant Peralta DO Signed Normal [facility] deOrdered By: Ac Simms on 11-22-2024 Glucose [Mass/Vol] 257 mg/dL High 74-106 [facility] Comment on above: MANAGEMENT OF PATIEN T CARE PER NURSING PROTOCOL Phosphoruson 11-22-2024 Phosphate [Mass/Vol] 3.2 mg/dL Normal 2.7-4.5 [facility] Comment on above: Performed By: #### L 100.0100, L500.2500 #### [facility] Laboratory [address] [place], [address] Absolute lymphocyte countOrd ered By: Sushant Atkins on 11-21-2024 Lymphocytes Auto (Unsp spec) [#/Vol] 0.86 10*3/uL 0.83-4.51 [facility] Absolute neutrophil countOrd ered By: Sushant Atkins on 11-21-2024 Neutrophils (Bld) [#/Vol] 3.2 10*3/uL 2.0-7.7 [facility] Anion gap in Serum or Plasma Ordered By: Sushant Atkins on 11-21-2024 Anion gap [Moles/Vol] 12 mmol/L 5-15 [facility] Automated lymphocyte count a s percentage of total leukocytesOrdered By: Sushant Atkins on 11-21-2024 Lymphocytes/100 WBC Auto (Unsp spec) 19.2 % 19-41 [facility] BUN/creatinine ratioOrdered By: Sushant Atkins on 11-21-2024 Urea nitrogen/Creatinine [Mass ratio] 12.6 mg/mg 10-20 [facility] Basophil percentageOrdered B y: Sushant Wilbert on 11-21-2024 Basophils/100 WBC (Bld) 0.2 % 0-1 [facility] Bedside Glucoseon 11-21-2024 FINGERSTICK GLU 81 mg/dL Normal 74-106 [facility] Comment on above: Result Comment: FITZ GEMENT OF PATIENT CARE PER NURSING PROTOCOL Performed By: #### L 100.0100, L500.2500 #### [facility] Laboratory [address] [place], [address] FINGERSTICK GLU 145 mg/dL High 74-106 [facility] Comment on above: Result Comment: FITZ GEMENT OF PATIENT CARE PER NURSING PROTOCOL Performed By: #### L 501.080 ####[facility] [address] [place], [address] FINGERSTICK GLU 170 mg/dL High 74-106 [facility] Comment on above: Result Comment: FITZ GEMENT OF PATIENT CARE PER NURSING PROTOCOL Performed By: #### L 100.0100, L500.2500 #### [facility] Laboratory [address] [place], [address] Bilirubin, totalOrdered By: Sushant Atkins on 11-21-2024 Bilirubin [Mass/Vol] 0.35 mg/dL 0.00-1.30 [facility] CBC W/Diff, Automatedon 11-01 Absolute Lymph 0.86 X10 3/uL Normal 0.83-4.51 [facility] Comment on above: Performed By: #### M 300.4600, M300.4500 #### [facility] Laboratory [address] [place], [address] Absolute Neut 3.2 X10 3/uL Normal 2.0-7.7 [facility] Comment on above: Performed By: #### M 300.4600, M300.4500 #### [facility] Laboratory [address] [place], [address] Basophils/100 WBC (Bld) 0.2 % Normal 0-1 [facility] Comment on above: Performed By: #### M 300.4600, M300.4500 #### [facility] Laboratory [address] [place], [address] Eosinophils/100 WBC (Bld) 1.3 % Normal 0-5 [facility] Comment on above: Performed By: #### M 300.4600, M300.4500 #### [facility] Laboratory [address] [place], [address] Erythrocyte distribution width (RBC) [Ratio] 15.2 % High 11.6-14.6 [facility] Comment on above: Performed By: #### M 300.4600, M300.4500 #### [facility] Laboratory [address] [place], [address] Hematocrit (Bld) [Volume fraction] 28.3 % Low 37-47 [facility] Comment on above: Performed By: #### M 300.4600, M300.4500 #### [facility] Laboratory [address] [place], [address] Hemoglobin (Bld) [Mass/Vol] 9.7 g/dL Low 12.0-15.0 [facility] Comment on above: Performed By: #### M 300.4600, M300.4500 #### [facility] Laboratory [address] [place], [address] IG% 0.400 Normal 0.0-0.9 [facility] Comment on above: Result Comment: IG% - Immature Granulocytes (promyelocytes, myelocytes and metamyelocytes) > 1% indicates that a LEFT SHIFT is Present. Performed By: #### M 300.4600, M300.4500 #### [facility] Laboratory [address] [place], [address] Lymphocytes/100 WBC (Bld) 19.2 % Normal 19-41 [facility] Comment on above: Performed By: #### M 300.4600, M300.4500 #### [facility] Laboratory [address] [place], [address] MCH (RBC) [Entitic mass] 29.2 pg Normal 27.0-32.0 [facility] Comment on above: Performed By: #### M 300.4600, M300.4500 #### [facility] Laboratory [address] [place], [address] MCHC (RBC) [Mass/Vol] 34.3 g/dL Normal 32-36 [facility] Comment on above: Performed By: #### M 300.4600, M300.4500 #### [facility] Laboratory [address] [place], [address] MCV (RBC) [Entitic vol] 85.2 fL Normal 81-99 [facility] Comment on above: Performed By: #### M 300.4600, M300.4500 #### [facility] Laboratory [address] [place], [address] Monocytes/100 WBC (Bld) 7.1 % Normal 0-10 [facility] Comment on above: Performed By: #### M 300.4600, M300.4500 #### [facility] Laboratory [address] [place], [address] Neutrophils/100 WBC (Bld) 71.8 % High 47-70 [facility] Comment on above: Performed By: #### M 300.4600, M300.4500 #### [facility] Laboratory [address] [place], [address] Nucleated RBC (Bld) [#/Vol] 0 10*3/uL Normal 0-5 [facility] Comment on above: Performed By: #### M 300.4600, M300.4500 #### [facility] Laboratory [address] [place], [address] Platelet mean volume (Bld) [Entitic vol] 8.4 fL Normal 6.2-12.0 [facility] Comment on above: Performed By: #### M 300.4600, M300.4500 #### [facility] Laboratory [address] [place], [address] Platelets (Bld) [#/Vol] 261 10*3/uL Normal 150-450 [facility] Comment on above: Performed By: #### M 300.4600, M300.4500 #### [facility] Laboratory [address] [place], [address] RBC (Bld) [#/Vol] 3.32 10*6/uL Low 4.2-5.4 [facility] Comment on above: Performed By: #### M 300.4600, M300.4500 #### [facility] Laboratory [address] [place], [address] RDW SD 47.1 fl High 35.1-43.9 [facility] Comment on above: Performed By: #### M 300.4600, M300.4500 #### [facility] Laboratory [address] [place], [address] WBC (Bld) [#/Vol] 4.5 10*3/uL Normal 4.4-11.0 [facility] Comment on above: Performed By: #### M 300.4600, M300.4500 #### [facility] Laboratory [address] [place], [address] Carbon dioxide, total [Moles /volume] in Central venous bloodOrdered By: Sushant Atkins on 11-21-2024 CO2 [Moles/Vol] 22.3 mmol/L 21.0-32.0 [facility] Chest without Contraston Chest without Contrast [facility] Imaging Services [address] [place] [address] Chest without Contrast MR#: [id number] Acct: [id number] Name: ORION SORENSEN Rep #: [id number] : 1950 F 74 From: Sampson Titus MD PCP: Terrie Goldstein, NELLA-C Status: ADM IN Study: Chest without Contrast Date of Exam: 11/21/24 Exam# [id number] Ordering Dr: Ac Simms MD EXAM: CT Chest Without Intravenous Contrast CLINICAL INDICATION: FEVER, GROUHD GLASS IN LUNG BASES IN CT ABD TECHNIQUE: Axial computed tomography images of the chest without intravenous contrast. This CT exam was performed using one or more of the following dose reduction techniques: automated exposure control, adjustment of the mA and/or kV according to patient size, and/or use of iterative reconstruction technique. COMPARISON: No relevant prior studies available. FINDINGS: LUNGS AND PLEURAL SPACES: Mild lung emphysema. 4 mm nodule of the posterior right lower lobe. Repeat CT in 6 months is recommended. Previously described potential ground-glass attenuation of the lung bases appear to be atelectasis or scarring. Otherwise, no focal consolidation. No pneumothorax. No significant effusion. HEART: Unremarkable. No cardiomegaly. No significant pericardial effusion. No significant coronary artery calcifications. MEDIASTINUM: A few prominent mediastinal lymph nodes measuring up to 6 mm. Small esophageal hiatal hernia. BONES/JOINTS: Unremarkable. No acute fracture. No dislocation. SOFT TISSUES: Unremarkable. VASCULATURE: Scattered calcified atherosclerotic disease of aorta. No thoracic aortic aneurysm. LYMPH NODES: See above. CT/Chest without Contrast IMPRESSION: 1. Small esophageal hiatal hernia. 2. Previously described potential ground-glass attenuation of the lung bases appear to be atelectasis or scarring. Otherwise, no focal consolidation. Reading Location: RAD-LE-NL CC: RN PROGRESSIVE CARE-C Terrie Goldstein; Dr. Ac Simms MD Cold Roll Catcher: Signed Normal [facility] Chloride assayOrdered By: Farhan Atkins on 11-21-2024 Chloride [Moles/Vol] 100 mmol/L 98-108 [facility] Comprehensive Metabolic Prof ilon 11-21-2024 Albumin [Mass/Vol] 3.5 g/dL Normal 3.4-4.8 [facility] Comment on above: Performed By: #### M 300.4600, M300.4500 #### [facility] Laboratory [address] [place], [address] Albumin/Globulin [Mass ratio] 1.1 {ratio} Normal 0.9-2.4 [facility] Comment on above: Performed By: #### M 300.4600, M300.4500 #### [facility] Laboratory [address] [place], [address] ALK PHOS 63 U/L Normal 35-104 [facility] Comment on above: Performed By: #### M 300.4600, M300.4500 #### [facility] Laboratory [address] [place], [address] ALT [Catalytic activity/Vol] 25 U/L Normal <=34 [facility] Comment on above: Performed By: #### M 300.4600, M300.4500 #### [facility] Laboratory [address] [place], [address] AST [Catalytic activity/Vol] 37 U/L High <=31 [facility] Comment on above: Performed By: #### M 300.4600, M300.4500 #### [facility] Laboratory [address] [place], [address] Bilirubin [Mass/Vol] 0.35 mg/dL Normal 0.00-1.30 [facility] Comment on above: Performed By: #### M 300.4600, M300.4500 #### [facility] Laboratory [address] [place], [address] BUN/CRE 12.6 RATIO Normal 10-20 [facility] Comment on above: Performed By: #### M 300.4600, M300.4500 #### [facility] Laboratory [address] [place], [address] Calcium [Mass/Vol] 8.7 mg/dL Normal 7.6-11.0 [facility] Comment on above: Performed By: #### M 300.4600, M300.4500 #### [facility] Laboratory [address] [place], [address] Chloride [Moles/Vol] 100 mmol/L Normal 98-108 [facility] Comment on above: Performed By: #### M 300.4600, M300.4500 #### [facility] Laboratory [address] [place], [address] CO2 [Moles/Vol] 22.3 mmol/L Normal 21.0-32.0 [facility] Comment on above: Performed By: #### M 300.4600, M300.4500 #### [facility] Laboratory [address] [place], [address] Creatinine [Mass/Vol] 0.95 mg/dL Normal 0.70-1.20 [facility] Comment on above: Performed By: #### M 300.4600, M300.4500 #### [facility] Laboratory [address] [place], [address] ECRCL 49.59 ml/min Low 50-250 [facility] Comment on above: Performed By: #### M 300.4600, M300.4500 #### [facility] Laboratory [address] [place], [address] GAP 12 Normal 5-15 [facility] Comment on above: Performed By: #### M 300.4600, M300.4500 #### [facility] Laboratory [address] [place], [address] GFR/1.73 sq M.predicted among non-blacks MDRD (S/P/Bld) [Vol rate/Area] 62 mL/min/{1.73_m2} Normal >60 [facility] Comment on above: Result Comment: mL/m in/1.73m2 CKD-EPI Creatinine Equation (2020) Performed By: #### M 300.4600, M300.4500 #### [facility] Laboratory [address] [place], [address] Globulin (S) [Mass/Vol] 3.2 g/dL Normal 2.2-4.2 [facility] Comment on above: Performed By: #### M 300.4600, M300.4500 #### [facility] Laboratory [address] [place], [address] Glucose [Mass/Vol] 170 mg/dL High 70-99 [facility] Comment on above: Performed By: #### M 300.4600, M300.4500 #### [facility] Laboratory [address] [place], [address] Potassium [Moles/Vol] 4.1 mmol/L Normal 3.3-5.1 [facility] Comment on above: Performed By: #### M 300.4600, M300.4500 #### [facility] Laboratory [address] [place], [address] Sodium [Moles/Vol] 134 mmol/L Normal 133-145 [facility] Comment on above: Performed By: #### M 300.4600, M300.4500 #### [facility] Laboratory [address] [place], [address] T PROT 6.7 g/dL Normal 5.9-8.4 [facility] Comment on above: Performed By: #### M 300.4600, M300.4500 #### [facility] Laboratory [address] [place], [address] Urea nitrogen [Mass/Vol] 12 mg/dL Normal 4-19 [facility] Comment on above: Performed By: #### M 300.4600, M300.4500 #### [facility] Laboratory [address] [place], [address] Eosinophil percentageOrdered By: Sushant Atkins on 11-21-2024 Eosinophils/100 WBC (Bld) 1.3 % 0-5 [facility] Erythrocyte distribution wid th ratioOrdered By: Sushant Atkins on 11-21-2024 Erythrocyte distribution width (RBC) [Ratio] 15.2 % High 11.6-14.6 [facility] Erythrocyte distribution wid th standard deviationOrdered By: Sushant Atkins on 11-21-2024 Erythrocyte distribution width (RBC) [Ratio] 47.1 fl High 35.1-43.9 [facility] Glomerular filtration rate ( GFR) estimation/1.73 sq m using serum, plasma, or whole bOrdered By: Sushant Atkins on 11-21-2024 GFR/1.73 sq M.predicted among non-blacks MDRD (S/P/Bld) [Vol rate/Area] 62 mL/min/{1.73_m2} >60 [facility] Comment on above: mL/min/1.73m2 CKD-EP I Creatinine Equation (2020) Hematocrit Auto (Bld) [Volum e fraction]Ordered By: Sushant Atkins on 11-21-2024 Hematocrit (Bld) [Volume fraction] 28.3 % Low 37-47 [facility] Hemoglobin A1con 11-21-2024 HbA1c (Bld) [Mass fraction] 7.4 % High <=5.6 [facility] Comment on above: Result Comment: Norm al < 5.7 % Prediabetic 5.7 - 6.4 % Diabetic >or= 6.5 % Please note range changes. Performed By: #### M 300.4600, M300.4500 #### [facility] Laboratory [address] [place], [address] Hemoglobin A1c percentageOrd ered By: Sushant Atkins on 11-21-2024 HbA1c (Bld) [Mass fraction] 7.4 % High <5.7 [facility] Comment on above: Normal < 5.7 % Predi abetic 5.7 - 6.4 % Diabetic >or= 6.5 % Please note range changes. Hemoglobin measurementOrdere d By: Sushant Atkins on 11-21-2024 Hemoglobin (Bld) [Mass/Vol] 9.7 g/dL Low 12.0-15.0 [facility] Immature granulocytes/100 WB C Auto (Bld)Ordered By: Sushant Atkins on 11-21-2024 Immature granulocytes/100 WBC (Bld) 0.400 % 0.0-0.9 [facility] Comment on above: IG% - Immature Granu locytes (promyelocytes, myelocytes and metamyelocytes) > 1% indicates that a LEFT SHIFT is Present. Laboratory - Chemistry and C hemistry - challengeOrdered By: Sushant Atkins on 11-21-2024 AST [Catalytic activity/Vol] 37 U/L High <32 [facility] Legionella Antigen Urineon 0 11-21-2024 LEGU URINE, CLEAN CATCH L pneumo Ag Ur Ql Negative Presumptive negative for Legionella pneumophila serogroup 1 antigen in urine, suggesting no recent or current infection. Legionella Ag, Urine Negative (See interpretation below) Normal [facility] Comment on above: Performed By: #### M 300.4600, M300.4500 #### [facility] Laboratory [address] [facility]. [place], [place], [id number] MCV (mean corpuscular volume ) determinationOrdered By: Sushant Atkins on 11-21-2024 MCV (RBC) [Entitic vol] 85.2 fL 81-99 [facility] Mean corpuscular hemoglobin (MCH) determinationOrdered By: Sushant Atkins on 11-21-2024 MCH (RBC) [Entitic mass] 29.2 pg 27.0-32.0 [facility] Mean corpuscular hemoglobin concentration (MCHC) determinationOrdered By: Sushant Atkins on 11-21-2024 MCHC (RBC) [Mass/Vol] 34.3 g/dL 32-36 [facility] Mean platelet volume determi nationOrdered By: Sushant Atkins on 11-21-2024 Platelet mean volume (Bld) [Entitic vol] 8.4 fL 6.2-12.0 [facility] Monocyte percentageOrdered B y: Sushant Atkins on 11-21-2024 Monocytes/100 WBC (Bld) 7.1 % 0-10 [facility] Neutrophil percentageOrdered By: Sushant Atkins on 11-21-2024 Neutrophils/100 WBC (Bld) 71.8 % High 47-70 [facility] Nucleated red blood cell per centageOrdered By: Sushant Atkins on 11-21-2024 Nucleated RBC/100 WBC (Bld) [Ratio] 0 % 0-5 [facility] Phosphoruson 11-21-2024 Phosphate [Mass/Vol] 3.0 mg/dL Normal 2.7-4.5 [facility] Comment on above: Performed By: #### M 300.4600, M300.4500 #### [facility] Laboratory [facility] [place], [address] Platelet countOrdered By: Farhan Atkins on 11-21-2024 Platelets (Bld) [#/Vol] 261 10*3/uL 150-450 [facility] Potassium measurement (mass/ volume)Ordered By: Sushant Atkins on 11-21-2024 Potassium (Unsp spec) [Mass/Vol] 4.1 mmol/L 3.3-5.1 [facility] RBC Auto (Bld) [#/Vol]Ordere d By: Sushant Atkins on 11-21-2024 RBC (Bld) [#/Vol] 3.32 10*6/uL Low 4.2-5.4 [facility] Serum creatinine measurement (mass/volume)Ordered By: Sushant Atkins on 11-21-2024 Creatinine [Mass/Vol] 0.95 mg/dL 0.70-1.20 [facility] Serum globulin measurementOr dered By: Sushant Atkins on 11-21-2024 Globulin (S) [Mass/Vol] 3.2 g/dL 2.2-4.2 [facility] Serum glucose measurement (m ass/volume)Ordered By: Sushant Atkins on 11-21-2024 Glucose [Mass/Vol] 170 mg/dL High 70-99 [facility] Serum or plasma alanine raymundo otransferase (ALT) measurementOrdered By: Sushant Atkins on 11-21-2024 ALT [Catalytic activity/Vol] 25 U/L <35 [facility] Serum or plasma albumin carla urement (mass/volume)Ordered By: Sushant Atkins on 11-21-2024 Albumin [Mass/Vol] 3.5 g/dL 3.4-4.8 [facility] Serum or plasma albumin/glob ulin mass ratioOrdered By: Sushant Atkins on 11-21-2024 Albumin/Globulin [Mass ratio] 1.1 {ratio} 0.9-2.4 [facility] Serum or plasma alkaline irina sphatase measurementOrdered By: Sushant Atkins on 11-21-2024 ALP [Catalytic activity/Vol] 63 U/L 35-104 [facility] Serum or plasma calcium carla urement (mass/volume)Ordered By: Sushant Atkins on 11-21-2024 Calcium [Mass/Vol] 8.7 mg/dL 7.6-11.0 [facility] Serum or plasma urea nitroge n measurement (mass/volume)Ordered By: Sushant Atkins on 11-21-2024 Urea nitrogen [Mass/Vol] 12 mg/dL 4-19 [facility] Sodium levelOrdered By: Lyle Atkins on 11-21-2024 Sodium [Moles/Vol] 134 mmol/L 133-145 [facility] Strep pneumoniae Antig(UR,CS F)on 11-21-2024 STPAG [] Negative Urine Presumptive negative for pneumococcal pneumonia, suggesting no current or recent pneumococcal infection. Infection due to S pneumoniae cannot be ruled out since the antigen present in the sample may be below the detection limit of the test. Strep pneumo Test Negative URINE (See interpretation below) Normal [facility] Comment on above: Performed By: #### M 300.9149, M300.4500 #### [facility] Laboratory [facility] [place], [address] TSH DL <= 0.005 mIU/L QnOrde red By: Sushant Atkins on 11-21-2024 TSH Qn 0.651 uIU/mL 0.300-4.200 [facility] Thyroid Stim Hormone (TSH)on 11-21-2024 TSH 0.651 uIU/mL Normal 0.300-4.200 [facility] Comment on above: Performed By: #### M 300.2870, M300.4500 #### [facility] Laboratory [address] [place], [address] Total proteinOrdered By: Luis Atkins on 11-21-2024 Protein [Mass/Vol] 6.7 g/dL 5.9-8.4 [facility] Urine Legionella pneumophila antigen detectionOrdered By: Sushant Atkins on 11-21-2024 L. pneumophila Ag Ql (U) [facility] White blood cell (WBC) count Ordered By: Sushant Atkins on 11-21-2024 WBC (Bld) [#/Vol] 4.5 10*3/uL 4.4-11.0 [facility] 12 Lead EKGon 11-20-2024 12 Lead EKG [facility] Cardiovascular Services [address] [place] [address] 12 Lead EKG 11/20/24 1850 MR#: [id number] Acct: [id number] Name: ORION SORENSEN Rep #: [id number] : 1950 74 From: Kevin Kerr MD Attending Dr: Dr. Ac Simms MD Status: ADM IN Ordering Dr: Bartolome Castillo DO Date: 11/20/24 Location: [facility] Sex: F C Admitted: 11/20/24 Test Reason : gen ill Blood Pressure : */* mmHG Vent. Rate : 92 BPM Atrial Rate : 92 BPM P-R Int : 150 ms QRS Dur : 76 ms QT Int : 362 ms P-R-T Axes : 71 46 56 degrees QTcB Int : 447 ms Normal sinus rhythm Normal ECG Confirmed by KEVIN KERR MD ([id number]), assignment editor VEDA GANDHI ([id number]) on 11/22/2024 8:20:37 AM Referred By: Bartolome Castillo Confirmed By: KEVIN KERR MD 11/22/24 0820 Date Kevin Kerr MD CC: RN PROGRESSIVE CARE-C Terrie Goldstein; Dr. Ac Simms MD; Dr. Bartolome Castillo DO Signed Normal [facility] Abdomen/Pelvis without Conto n 11-20-2024 Abdomen/Pelvis without Cont [facility] Imaging Services [address] [place] [address] Abdomen/Pelvis without Cont MR#: [id number] Acct: [id number] Name: ORION SORENSEN Rep #: [id number] : 1950 F 74 From: Maurice Conti MD PCP: Terrie Goldstein RN PROGRESSIVE CARE-C Status: REG ER Study: Abdomen/Pelvis without Cont Date of Exam: 11/01 08/26 Exam# [id number] Ordering Dr: Bartolome Castillo DO PROCEDURE: ABDOMEN/PELVIS WITHOUT CONT 11/20/2024 REASON FOR EXAM: FEVER, HX OF COLORECTAL CANCER TECHNIQUE: Contiguous axial scans of 2.5 mm slice thicknesses. Sagittal and coronal reconstruction images were obtained. One or more dose reduction techniques were used (e.g., automated exposure control, adjustment of mA and/or kv according to patient size, use of iterative reconstruction technique). PATIENT PREPARATION: Per protocol ORAL CONTRAST TYPE: None.. IV CONTRAST: NONE GIVEN. COMPARISON: 10/30/2024. FINDINGS: Lung bases: Areas of ground-glass opacification in the lower lobes. Coronary artery calcifications. Liver: Normal in size. No masses are identified. Normal attenuation. Gallbladder: Unremarkable. Spleen: Unremarkable except for calcified granuloma. Pancreas: Unremarkable. Adrenals: 1.3 cm left adrenal nodule, axial image 62. Kidneys: Normal in size. No calcifications. No masses. Bladder: Small pocket of air along the anterior bladder wall. Reproductive Organs: Unremarkable uterus. Bowel: Unremarkable. Findings related colorectal resection and reanastomosis, patent. Appendix: Unremarkable. Lymph nodes: No suspicious lymphadenopathy. Vasculature: Phleboliths scattered throughout the pelvis. Mild atherosclerotic calcific disease. Suspicion of small calcified splenic artery aneurysm, axial image 66. Peritoneum / Retroperitoneum: No masses. No free air. No free fluid. Anterior abdominal wall: Umbilical hernia containing transverse colon no signs of strangulation. Areas of soft tissue stranding in the anterior abdominal wall. Bones: Multilevel spondylosis. Degenerative disc disease at L4-5. CT/Abdomen/Pelvis without Cont IMPRESSION: Areas of nonspecific ground-glass opacification in the lower lobes. Can not exclude mild inflammation. Coronary artery calcifications. Small left adrenal gland nodule most likely adenoma. Small pocket of air along the anterior wall of the urinary bladder most likely iatrogenic. Status post colorectal resection and reanastomosis. Anterior wall umbilical hernia. Other nonacute findings detailed above. Reading Location: [facility] CC: RN PROGRESSIVE CARE-C Terrie Goldstein; Dr. Bartolome Castillo DO Cold Roll Catcher: Signed Normal [facility] Bedside Glucoseon 11-20-2024 FINGERSTICK GLU 212 mg/dL High 74-106 [facility] Comment on above: Result Comment: Repe at Test Insulin Given MANAGEMENT OF PATIENT CARE PER NURSING PROTOCOL Performed By: #### L 100.0100, L500.2500 #### [facility] Laboratory [address] [place], [place], [id number] Bilirubin Test strip Ql (U)O rdered By: Bartolome Castillo on 11-20-2024 Bilirubin Ql (U) Negative Negative [facility] Brain/Head without Contrasto n 11-20-2024 Brain/Head without Contrast [facility] Imaging Services [address] [place], [place] [address] Brain/Head without Contrast MR#: [id number] Acct: [id number] Name: ORION SORENSEN Rep #: [id number] : 1950 F 74 From: Nishant Castano MD PCP: Terrie Goldstein, NELLA-C Status: REG ER Study: Brain/Head without Contrast Date of Exam: 11/01 08/26 Exam# [id number] Ordering Dr: Bartolome Castillo DO PROCEDURE: BRAIN/HEAD WITHOUT CONTRAST 11/20/2024 REASON FOR EXAM: FALL, HEAD TRAUMA TECHNIQUE: Head CT without intravenous contrast. Coronal and Sagittal reconstruction series were provided. One or more dose reduction techniques were used (e.g., Automated exposure control, adjustment of the mA and/or kV according to patient size, use of iterative reconstruction technique. FINDINGS: Brain: Normal CSF Spaces: Normal Sinuses/Mastoids: Clear at visualized levels Bones: Unremarkable. CT/Brain/Head without Contrast IMPRESSION: NORMAL NONCONTRAST HEAD CT. Reading Location: [id number] CC: ROSENDO Goldstein; Dr. Bartolome Castillo DO Cold Roll Catcher: Signed Normal [facility] CBC W/Diff, Automatedon 11-01 Absolute Lymph 0.64 X10 3/uL Low 0.83-4.51 [facility] Comment on above: Performed By: #### M 300.4600, M300.4500 #### [facility] Laboratory [address] [place], [address] Absolute Neut 4.8 X10 3/uL Normal 2.0-7.7 [facility] Comment on above: Performed By: #### M 300.4600, M300.4500 #### [facility] Laboratory [address] [place], [address] Basophils/100 WBC (Bld) 0.2 % Normal 0-1 [facility] Comment on above: Performed By: #### M 300.4600, M300.4500 #### [facility] Laboratory [address] [place], [address] Eosinophils/100 WBC (Bld) 1.2 % Normal 0-5 [facility] Comment on above: Performed By: #### M 300.4600, M300.4500 #### [facility] Laboratory [address] [place], [address] Erythrocyte distribution width (RBC) [Ratio] 15.2 % High 11.6-14.6 [facility] Comment on above: Performed By: #### M 300.4600, M300.4500 #### [facility] Laboratory [address] [place], [address] Hematocrit (Bld) [Volume fraction] 29.8 % Low 37-47 [facility] Comment on above: Performed By: #### M 300.4600, M300.4500 #### [facility] Laboratory [address] [place], [address] Hemoglobin (Bld) [Mass/Vol] 10.0 g/dL Low 12.0-15.0 [facility] Comment on above: Performed By: #### M 300.4600, M300.4500 #### [facility] Laboratory [address] [place], [address] IG% 0.500 Normal 0.0-0.9 [facility] Comment on above: Result Comment: IG% - Immature Granulocytes (promyelocytes, myelocytes and metamyelocytes) > 1% indicates that a LEFT SHIFT is Present. Performed By: #### M 300.4600, M300.4500 #### [facility] Laboratory [address] [place], [address] Lymphocytes/100 WBC (Bld) 11.1 % Low 19-41 [facility] Comment on above: Performed By: #### M 300.4600, M300.4500 #### [facility] Laboratory [address] [place], [address] MCH (RBC) [Entitic mass] 28.6 pg Normal 27.0-32.0 [facility] Comment on above: Performed By: #### M 300.4600, M300.4500 #### [facility] Laboratory [address] [place], [address] MCHC (RBC) [Mass/Vol] 33.6 g/dL Normal 32-36 [facility] Comment on above: Performed By: #### M 300.4600, M300.4500 #### [facility] Laboratory [address] [place], [address] MCV (RBC) [Entitic vol] 85.1 fL Normal 81-99 [facility] Comment on above: Performed By: #### M 300.4600, M300.4500 #### [facility] Laboratory [address] [place], [address] Monocytes/100 WBC (Bld) 3.6 % Normal 0-10 [facility] Comment on above: Performed By: #### M 300.4600, M300.4500 #### [facility] Laboratory [address] [place], [address] Neutrophils/100 WBC (Bld) 83.4 % High 47-70 [facility] Comment on above: Performed By: #### M 300.4600, M300.4500 #### [facility] Laboratory [address] [place], [address] Nucleated RBC (Bld) [#/Vol] 0 10*3/uL Normal 0-5 [facility] Comment on above: Performed By: #### M 300.4600, M300.4500 #### [facility] Laboratory [address] [place], [address] Platelet mean volume (Bld) [Entitic vol] 8.3 fL Normal 6.2-12.0 [facility] Comment on above: Performed By: #### M 300.4600, M300.4500 #### [facility] Laboratory [address] [place], [address] Platelets (Bld) [#/Vol] 303 10*3/uL Normal 150-450 [facility] Comment on above: Performed By: #### M 300.4600, M300.4500 #### [facility] Laboratory [address] [place], [address] RBC (Bld) [#/Vol] 3.50 10*6/uL Low 4.2-5.4 [facility] Comment on above: Performed By: #### M 300.4600, M300.4500 #### [facility] Laboratory [address] [place], [address] RDW SD 46.7 fl High 35.1-43.9 [facility] Comment on above: Performed By: #### M 300.4600, M300.4500 #### [facility] Laboratory [address] [place], [address] WBC (Bld) [#/Vol] 5.8 10*3/uL Normal 4.4-11.0 [facility] Comment on above: Performed By: #### M 300.4600, M300.4500 #### [facility] Laboratory [address] [place], [address] Chest 1 View (Portable)on Chest 1 View (Portable) [facility] Imaging Services [address] [place] [address] Chest 1 View (Portable) MR#: [id number] Acct: [id number] Name: ORION SORENSEN Rep #: [id number] : 1950 F 74 From: Maurice Conti MD PCP: ROSENDO Perea Status: REG ER Study: Chest 1 View (Portable) Date of Exam: 11/20/24 Exam# [id number] Ordering Dr: Bartolome Castillo DO PROCEDURE: CHEST 1 VIEW (PORTABLE) 11/20/2024 REASON FOR EXAM: FEVER TECHNIQUE: Frontal view of the chest. COMPARISON: No relevant prior. FINDINGS: Lungs: Lungs clear of pneumonia and congestion. Pleura: No pleural effusions, thickening, or pneumothorax. Heart: Normal in size and configuration. Mediastinum/Bhakti: Unremarkable. Great vessels: Unremarkable. Bones/soft tissues: Status post cervical fusion with surgical instrumentation. RAD/Chest 1 View (Portable) IMPRESSION: No active cardiopulmonary disease these. Reading Location: [facility] CC: RN PROGRESSIVE CARE-C Terrie Goldstein; Dr. Bartolome Castillo DO Cold Roll Catcher: Signed Normal [facility] Comprehensive Metabolic Prof ilon 11-20-2024 Albumin [Mass/Vol] 3.6 g/dL Normal 3.4-4.8 [facility] Comment on above: Performed By: #### M 300.4600, M300.4500 #### [facility] Laboratory [address] [place], [address] Albumin/Globulin [Mass ratio] 1.0 {ratio} Normal 0.9-2.4 [facility] Comment on above: Performed By: #### M 300.4600, M300.4500 #### [facility] Laboratory [address] [place], [address] ALK PHOS 67 U/L Normal 35-104 [facility] Comment on above: Performed By: #### M 300.4600, M300.4500 #### [facility] Laboratory [address] [place], [address] ALT [Catalytic activity/Vol] 28 U/L Normal <=34 [facility] Comment on above: Performed By: #### M 300.4600, M300.4500 #### [facility] Laboratory [address] [place], [address] AST [Catalytic activity/Vol] 42 U/L High <=31 [facility] Comment on above: Performed By: #### M 300.4600, M300.4500 #### [facility] Laboratory [address] [place], [address] Bilirubin [Mass/Vol] 0.39 mg/dL Normal 0.00-1.30 [facility] Comment on above: Performed By: #### M 300.4600, M300.4500 #### [facility] Laboratory [address] [place], [address] BUN/CRE 15.2 RATIO Normal 10-20 [facility] Comment on above: Performed By: #### M 300.4600, M300.4500 #### [facility] Laboratory [address] [place], [address] Calcium [Mass/Vol] 9.3 mg/dL Normal 7.6-11.0 [facility] Comment on above: Performed By: #### M 300.4600, M300.4500 #### [facility] Laboratory [address] [place], [address] Chloride [Moles/Vol] 98 mmol/L Normal 98-108 [facility] Comment on above: Performed By: #### M 300.4600, M300.4500 #### [facility] Laboratory [address] [place], [address] CO2 [Moles/Vol] 22.8 mmol/L Normal 21.0-32.0 [facility] Comment on above: Performed By: #### M 300.4600, M300.4500 #### [facility] Laboratory [address] [place], [address] Creatinine [Mass/Vol] 0.98 mg/dL Normal 0.70-1.20 [facility] Comment on above: Performed By: #### M 300.4600, M300.4500 #### [facility] Laboratory [address] [place], [address] ECRCL 48.17 ml/min Low 50-250 [facility] Comment on above: Performed By: #### M 300.4600, M300.4500 #### [facility] Laboratory [address] [place], [address] GAP 14 Normal 5-15 [facility] Comment on above: Performed By: #### M 300.4600, M300.4500 #### [facility] Laboratory [address] [place], [address] GFR/1.73 sq M.predicted among non-blacks MDRD (S/P/Bld) [Vol rate/Area] 60 mL/min/{1.73_m2} Normal >60 [facility] Comment on above: Result Comment: mL/m in/1.73m2 CKD-EPI Creatinine Equation (2020) Performed By: #### M 300.4600, M300.4500 #### [facility] Laboratory [address] [place], [address] Globulin (S) [Mass/Vol] 3.5 g/dL Normal 2.2-4.2 [facility] Comment on above: Performed By: #### M 300.4600, M300.4500 #### [facility] Laboratory [address] [place], [address] Glucose [Mass/Vol] 48 mg/dL Low 70-99 [facility] Comment on above: Performed By: #### M 300.4600, M300.4500 #### [facility] Laboratory [address] [place], [address] Potassium [Moles/Vol] 4.2 mmol/L Normal 3.3-5.1 [facility] Comment on above: Performed By: #### M 300.4600, M300.4500 #### [facility] Laboratory [address] [place], [address] Sodium [Moles/Vol] 134 mmol/L Normal 133-145 [facility] Comment on above: Performed By: #### M 300.4600, M300.4500 #### [facility] Laboratory [address] [place], [address] T PROT 7.1 g/dL Normal 5.9-8.4 [facility] Comment on above: Performed By: #### M 300.4600, M300.4500 #### [facility] Laboratory [address] [place], [address] Urea nitrogen [Mass/Vol] 15 mg/dL Normal 4-19 [facility] Comment on above: Performed By: #### M 300.4600, M300.4500 #### [facility] Laboratory [address] [place], [address] Emergency Department Summary on 11-20-2024 Emergency Department Summary [facility] Medical Records Department [address] [place] [address] Emergency Department Summary 11/20/24 MR#: [id number] Acct: [id number] Name: ORION SORENSEN Rep #: [id number] : 1950 74 From: Bartolome Castillo DO PCP: ROSENDO Perea Status:ADM IN Location: [place]3 [id number] HPI History of Present Illness Chief Complaint: General Illness [facility] Medical History (Updated 11/20/24 @ 18:26 by Marjorie Aguayo) Decompression injury of spinal cord Skin cancer Kidney stones Hypoglycemia Blood transfusion during current hospitalisation UTI (urinary tract infection) Bone fracture Breast cancer Colorectal cancer Cancer Depression Diabetes Kidney disease GERD (gastroesophageal reflux disease) Former smoker Atrial fibrillation Hypertension Home Medications ???Medication ???Instructions ???Recorded ???Last Taken ???Type aspirin 81 mg tablet,delayed 81 mg PO DAILY HEART 09/06/17 Unkn own History release (Aspir-Low) insulin aspart U-100 100 unit/mL 24 unit subcut TIDCM DIABETES 12/17 Unknown History (3 mL) subcutaneous pen (Novolog FlexPen U-100 Insulin aspart) insulin glargine 100 unit/mL (3 35 unit subcut QHS DIABETES Unknown History mL) subcutaneous pen (Lantus Solostar U-100 Insulin) omeprazole 40 mg capsule,delayed 40 mg PO DAILY REFLUX 09/06/1707/19 06:00 History release simvastatin 10 mg tablet (Zocor) 10 mg PO QHS CHOLESTEROL 09/06/17 Unknown History valsartan 40 mg tablet (Diovan) 40 mg PO BID BP 09/06/17 09/13/17 06:00 History magnesium oxide 400 mg (241.3 mg 400 mg PO DAILY muscle spasm 10/30 Unknown History magnesium) tablet iron polysaccharide complex-iron 1 tab PO DAILY #60 tabs 11/02/24 U nknown Rx heme polypeptide 28 mg tablet alendronate 70 mg tablet (Fosamax) 70 mg PO .QOWK osteoporosis 10/31 02/23 Unknown History linaclotide 145 mcg capsule 145 mcg PO QAM #90 caps 11/16/24 U nknown Rx (Linzess) methocarbamol 750 mg tablet 750 mg PO TID PRN muscle spasms Unknown History duloxetine 30 mg capsule,delayed 30 mg PO DAILY 11/20/24 Unknown Hi story release Held on 11/20/24. Instructions: pt doesnt want to take bc it will make me a zombie furosemide 20 mg tablet 20 mg PO DAILY PRN swelling Unknown History mirabegron 25 mg tablet,extended 25 mg PO DAILY 11/20/24 Unknown Hi story release 24 hr (Myrbetriq) pen needle, diabetic 32 gauge x 11/20/24 Unknown History (BD Luz Elena 2nd Gen Pen Needle) sennosides 8.6 mg-docusate sodium 2 tab PO DAILY 11/20/24 Unknown H istory 50 mg tablet (Senexon-S) Allergy/AdvReac Type Severity Reaction Status Date / Time celecoxib (From Celebrex) Allergy Hives Verified 11/20/24 18:20 ramipril Allergy Hives Verified 11/20/24 18:20 rofecoxib (From Vioxx) Allergy Hives Verified 11/20/24 18:20 letrozole (From Femara) AdvReac Pain in Verified 11/20/24 18:20 joints Family History (Updated 11/16/24 @ 10:37 by Lissa Guy) Father CVA (cerebral vascular accident), Onset Age: 39 Sister Breast cancer Diabetes Mother Thyroid disorder Brother Arthritis Colon cancer Diabetes Mental disorder Psychiatric care CVA (cerebral vascular accident) Social History Smoking Status: Former smoker alcohol intake: current details: wine substance use type: does not use EXAM Physical Exam Const Vital Signs: 11/20/24 18:19 11/20/24 18:24 11/20/24 18:25 Temperature 100.1 F H 100.1 F H Temperature Source Oral Oral Pulse Rate 99 96 Respiratory Rate 12 12 Respiratory Effort Normal Respiratory Pattern Normal Blood Pressure 148/59 H 148/59 H Blood Pressure Mean 88 88 Pulse Ox 96 96 Oxygen Delivery Method Room Air Room Air Oxygen Flow Rate (L/min) 11/20/24 19:24 11/20/24 19:30 11/20/24 19:35 Temperature 99 F Temperature Source Oral Pulse Rate 93 Respiratory Rate 18 Respiratory Effort Respiratory Pattern Blood Pressure 126/55 H 146/72 H Blood Pressure Mean 78 90 Pulse Ox 97 93 Oxygen Delivery Method Room Air Oxygen Flow Rate (L/min) 11/20/24 19:45 11/20/24 20:00 11/20/24 20:05 Temperature Temperature Source Pulse Rate 95 97 96 Respiratory Rate 16 17 Respiratory Effort Respiratory Pattern Blood Pressure 126/55 H Blood Pressure Mean 76 Pulse Ox 97 89 96 Oxygen Delivery Method Oxygen Flow Rate (L/min) 11/20/24 20:19 11/20/24 20:30 11/20/24 21:00 Temperature 98.3 F Temperature Source Oral Pulse Rate 94 94 Respiratory Rate 15 25 H Respiratory Effort Respiratory Pattern Blood Pressure 120/52 L 123/54 H Blood Pr (more content not included)... Normal [facility] H AND P Exam - Hospitaliston 11-20-2024 H&P Exam - Hospitalist [facility] Medical Records Department [address] [place] [address] H P Exam - Hospitalist 11/20/24 2146 MR#: [id number] Acct: [id number] Name: ORION SORENSEN Rep #: [id number] : 1950 74 From: Sushant Peralta DO PCP: ROSENDO Perea Status:ADM [facility] - General General Date of Admission: 11/20/24 Date of Service: 11/20/24 Chief Complaint: Fall Yesterday with Cough and SOB. HPI Narrative ORION SORENSEN, is a 74 F with a past medical history of essential hypertension; on valsartan and as needed furosemide daily, hyperlipidemia; on simvastatin, obesity; with a BMI of 35.2 this admission, DM-2; of unknown control on insulin glargine 35 units sq at bedtime plus insulin aspart 3 times daily, history of atrial fibrillation, history of diverticulitis, history of colorectal cancer; s/p resection in remission since 2018, history of Right breast cancer; s/p chemotherapy and radiation, depression; previously on duloxetine (currently on hold), history of heart murmur, history of iron deficiency anemia; on oral iron supplement, overactive bladder; on mirabegron chronic idiopathic constipation; on linaclotide plus senna 2 tabs daily, GERD; on omeprazole, history of muscle spasm; on methocarbamol 3 times daily as needed, osteoporosis; on alendronate, OA; with recent C6-C7 surgery for decompression and recent admission here from October 30, 2024 to November 02, 2024 with LGIB with large stool burden on CT; s/p evaluation by gastroenterology with colonoscopy done on November 01, 2024 that revealed one 7 mm polyp at the splenic flexure removed with jumbo cold forceps resected and retrieved along with 2 bleeding colonic angiodysplastic lesions treated with argon plasma coagulation in the setting of previous end-to-end colocolonic anastomosis characterized by healthy- appearing mucosa who re-presents to [facility] ER complaining of fall yesterday with cough and shortness of breath. Ms. Sorensen reports she fell yesterday after missing her walker and has felt weak all over since that time. She cannot detail the events of the trauma or if she significantly injured herself. She does complain of bilateral calf pain and overall not feeling well. In the ER she was noted to be hypoxic requiring initiation of 2L NC with nonproductive cough. There was no report of chills, nausea, vomiting, diarrhea, chest pain, shortness of breath, syncope, headache or rash but she was noted to have fever of 100.1 ???F present on admission. In the ER she was noted to have bibasilar ground-glass opacities consistent with minor inflammation versus early pneumonia that was not present on her previous CT scan last admission with the ER physician suspecting early Pneumonia with Acute Hypoxic Respiratory Insufficiency complicated by Hypoglycemia of 48 g/dL present on admission. She was then admitted to the general medical floor with telemetric monitoring for ongoing care for state that is expected to extend beyond 2 midnights. [facility] Medical History (Updated 11/21/24 @ 00:[address] Sushant Peralta, ) Decompression injury of spinal cord Skin cancer Kidney stones Hypoglycemia Blood transfusion during current hospitalisation UTI (urinary tract infection) Bone fracture Breast cancer Colorectal cancer Cancer Depression Diabetes Kidney disease GERD (gastroesophageal reflux disease) Former smoker Atrial fibrillation Hypertension Home Medications ???Medication ???Instructions ???Recorded ???Last Taken ???Type aspirin 81 mg tablet,delayed 81 mg PO DAILY HEART 09/06/17 Unkn own History release (Aspir-Low) insulin aspart U-100 100 unit/mL 24 unit subcut TIDCM DIABETES 12/17 Unknown History (3 mL) subcutaneous pen (Novolog FlexPen U-100 Insulin aspart) insulin glargine 100 unit/mL (3 35 unit subcut QHS DIABETES Unknown History mL) subcutaneous pen (Lantus Solostar U-100 Insulin) omeprazole 40 mg capsule,delayed 40 mg PO DAILY REFLUX 09/06/1707/19 06:00 History release simvastatin 10 mg tablet (Zocor) 10 mg PO QHS CHOLESTEROL 09/06/17 Unknown History valsartan 40 mg tablet (Diovan) 40 mg PO BID BP 09/06/17 09/13/17 06:00 History magnesium oxide 400 mg (241.3 mg 400 mg PO DAILY muscle spasm 10/30 Unknown History magnesium) tablet iron polysaccharide complex-iron 1 tab PO DAILY #60 tabs 11/02/24 U nknown Rx heme polypeptide 28 mg tablet alendronate 70 mg tablet (Fosamax) 70 mg PO .QOWK osteoporosis 10/31 02/23 Unknown History linaclotide 145 mcg capsule 145 mcg PO QAM #90 caps 11/16/24 U nknown Rx (Linzess) methocarbamol 750 mg tablet 750 mg PO TID PRN muscle spasms Unknown History duloxetine 30 mg capsule,delayed 30 mg PO DAILY 11/20/24 Unknown Hi story release Held on 11/20/24. Instr (more content not included)... Normal [facility] Influenza virus A and B and SARS-CoV-2 (COVID-19) and Respiratory syncytial virus RNAOrdered By: Bartolome Castillo on 11-20-2024 SARS-CoV-2 (COVID-19) RNA CHA+probe Ql (Unsp spec) [facility] Ketones Test strip Ql (U)Ord ered By: Bartolome Castillo on 11-20-2024 Ketones Ql (U) Negative Negative [facility] Lactic acid measurementOrder ed By: Bartolome Castillo on 11-20-2024 Lactate [Moles/Vol] 1.4 mmol/L Normal 0.0-2.0 [facility] Comment on above: Order Comment: Y Performed By: #### L 100.0100, L500.2500 #### [facility] Laboratory [address] [place], [address] M100.678on 11-20-2024 M100.678 Pending SARS-CoV-2 (COVID 19) Negative INFLUENZA A Negative INFLUENZA B Negative RSV PCR Negative Normal [facility] Comment on above: Performed By: #### M 100.678 ####[facility] [address] [place], [address] Magnesiumon 11-20-2024 Magnesium [Mass/Vol] 1.6 mg/dL Normal 1.5-2.2 [facility] Comment on above: Order Comment: *ADD- ON MG6 5 M* Performed By: #### M 300.4600, M300.4500 #### [facility] Laboratory [address] [place], [address] Magnesium measurement (mass/ volume)Ordered By: Sushant Atkins on 11-20-2024 Magnesium (Unsp spec) [Mass/Vol] 1.6 mg/dL 1.5-2.2 [facility] Microscopic analysis of urin e for red blood cells (RBC)Ordered By: Bartolome Castillo on 11-20-2024 Microscopic analysis of urine for red blood cells (RBC) 0-5 SEEN /hpf 0-5 [facility] Mucus LM Ql (Urine sed)Order ed By: Bartolome Castillo on 11-20-2024 Mucus Ql (Urine sed) 0 SEEN /hpf [facility] Nitrite Test strip Ql (U)Ord ered By: Bartolome Castillo on 11-20-2024 Nitrite Ql (U) Negative Negative [facility] Protein Test strip Ql (U)Ord ered By: Bartolome Castillo on 11-20-2024 Protein Ql (U) 30 mg/dl High Negative [facility] Spine Cervical without Contr ason 11-20-2024 Spine Cervical without Contras [facility] Imaging Services [address] [place] [address] Spine Cervical without Contras MR#: [id number] Acct: [id number] Name: ORION SORENSEN Rep #: [id number] : 1950 F 74 From: Nishant Castano MD PCP: Terrie Goldstein NP-C Status: REG ER Study: Spine Cervical without Contras Date of Exam: 0 11/20/24 Exam# [id number] Ordering Dr: Bartolome Castillo DO PROCEDURE: SPINE CERVICAL WITHOUT CONTRAS 11/20/2024 REASON FOR EXAM: NECK PAIN TECHNIQUE: Cervical spine CT without contrast. Coronal and Sagittal reconstruction series were provided. One or more dose reduction techniques were used (e.g., Automated exposure control, adjustment of the mA and/or kV according to patient size, use of iterative reconstruction technique FINDINGS: Alignment: 2 mm of anterolisthesis of C3 on C4. Straightening of the normal lordotic curvature. Vertebrae: No acute fracture lines. Status post posterior decompression and fixation from C4 through T1. Unremarkable. Soft Tissues: Unremarkable. Other: C1-2: Degenerative changes of the anterior atlanto dental joint. C2-3: Mild left facet hypertrophy with ankylosis of the facet joint. No spinal stenosis or neural foraminal stenosis. C3-4: Mild bilateral facet hypertrophy. 2 mm of anterolisthesis of C3 on C4 with a mild broad disc protrusion produces mild spinal stenosis. C4-5: Status post posterior decompression and fixation with anatomic alignment no spinal stenosis or neural foraminal stenosis. C5-6: Status post posterior decompression and fixation with anatomic alignment with no spinal stenosis or neural foraminal stenosis. C6-7: Status post posterior decompression and fixation with anatomic alignment with no spinal stenosis or neural foraminal stenosis. C7-T1: CT/Spine Cervical without Contras IMPRESSION: No acute fracture or subluxation. Postsurgical changes and degenerative disc disease as described above. Reading Location: [id number] CC: RN PROGRESSIVE CARE-C Terrie Goldstein; Dr. Bartolome Castillo DO Cold Roll Catcher: Signed Normal [facility] Squamous epithelial cells de tection in urine sediment by light microscopyOrdered By: Bartolome Castillo on 11-20-2024 Epithelial cells.squamous LM Ql (Urine sed) 0-5 SEEN /hpf 5-10 [facility] Urinalysis, Completeon 11-20 BILIRUBIN URINE Negative Normal Negative [facility] Comment on above: Order Comment: CLEAN CATCH Performed By: #### L 100.0100, L500.2500 #### [facility] Laboratory [address] [place], [address] Clarity (U) Clear Normal Clear [facility] Comment on above: Order Comment: CLEAN CATCH Performed By: #### L 100.0100, L500.2500 #### [facility] Laboratory [address] [place], [address] Color (U) Yellow Normal Yellow [facility] Comment on above: Order Comment: CLEAN CATCH Performed By: #### L 100.0100, L500.2500 #### [facility] [address] [place], [address] GLUCOSE, UR Normal Normal Normal [facility] Comment on above: Order Comment: CLEAN CATCH Performed By: #### L 100.0100, L500.2500 #### [facility] [address] [place], [address] KETONE UR Negative Normal Negative [facility] Comment on above: Order Comment: CLEAN CATCH Performed By: #### L 100.0100, L500.2500 #### [facility] [address] [place], [address] LEUK ESTERASE Negative Normal Negative [facility] Comment on above: Order Comment: CLEAN CATCH Performed By: #### L 100.0100, L500.2500 #### [facility] [address] [place], [address] Nitrite Ql (U) Negative Normal Negative [facility] Comment on above: Order Comment: CLEAN CATCH Performed By: #### L 100.0100, L500.2500 #### [facility] [address] [place], [address] OCCULT BLOOD-UR 50 /ul Abnormal Negative [facility] Comment on above: Order Comment: CLEAN CATCH Performed By: #### L 100.0100, L500.2500 #### [facility] [address] [place], [address] pH UR 6.5 Normal 5.0 - 8.0 [facility] Comment on above: Order Comment: CLEAN CATCH Performed By: #### L 100.0100, L500.2500 #### [facility] [address] [place], [address] PROT DIPSTX 30 mg/dl Abnormal Negative [facility] Comment on above: Order Comment: CLEAN CATCH Performed By: #### L 100.0100, L500.2500 #### [facility] [address] [place], [address] SP.GR. DIPSTX 1.010 Normal 1.002-1.030 [facility] Comment on above: Order Comment: CLEAN CATCH Performed By: #### L 100.0100, L500.2500 #### [facility] [address] [place], [address] UROBILI Normal Normal Normal [facility] Comment on above: Order Comment: CLEAN CATCH Performed By: #### L 100.0100, L500.2500 #### [facility] [address] [place], [address] Urine clarityOrdered By: Gabi Castillo on 11-20-2024 Clarity (U) Clear Clear [facility] Urine color determinationOrd ered By: Bartolome Castillo on 11-20-2024 Color (U) Yellow Yellow [facility] Urine glucose detectionOrder ed By: Bartolome Castillo on 11-20-2024 Glucose Ql (U) Normal mg/dl Normal [facility] Urine leukocyte esterase det ection by dipstickOrdered By: Bartolome Castillo on 11-20-2024 Leukocyte esterase Test strip Ql (U) Negative Negative [facility] Urine pHOrdered By: Bartolome suero on 11-20-2024 pH (U) 6.5 [pH] 5.0 - 8.0 [facility] Urine sediment bacteria coun t by microscopy (number/high power field)Ordered By: Bartolome Castillo on 11-20-2024 Bacteria LM.HPF (Urine sed) [#/Area] 0 /[HPF] None Seen [facility] Urine specific gravity measu rementOrdered By: Bartolome Castillo on 11-20-2024 Specific gravity (U) [Rel density] 1.010 1.002-1.030 [facility] Urine urobilinogen measureme ntOrdered By: Bartolome Castillo on 11-20-2024 Urobilinogen Ql (U) Normal mg/dl Normal [facility] Venous Duplex Imag/Tramaine Extre mon 11-20-2024 Venous Duplex Imag/Tramaine Extrem [facility] Imaging Services [address] [place] [address] Venous Duplex Imag/Tramaine Extrem MR#: [id number] Acct: [id number] Name: ORION SORENSEN Rep #: [id number] : 1950 F 74 From: Maurice Conti MD PCP: Terrie Goldstein NP-Osiris Status: [facility] ER Study: Venous Duplex Imag/Tramaine Extrem Date of Exam: Exam# [id number] Ordering Dr: Bartolome Castillo DO PROCEDURE: VENOUS DUPLEX IMAGING/BILATERAL EXTREMITY 11/20/2024 REASON FOR EXAM: BILATERAL LEG PAIN. TECHNIQUE: Bilateral Grayscale color flow and doppler analysis of the bilateral lower extremities. COMPARISON: No relevant prior. FINDINGS: Thrombus: No evidence of acute or chronic deep vein thrombus in the bilateral lower extremities. Compression and augmentation: Unremarkable. Blood flow: Normal phasicity. Varicosities: Nonvisualized. Superficial veins: Unremarkable. US/Venous Duplex Imag/Tramaine Extrem IMPRESSION: 1. No evidence of acute or chronic deep vein thrombosis in the right lower extremity. 2. No evidence of acute or chronic deep vein thrombosis in the left lower extremity. 3. No evidence of thrombophlebitis. Reading Location: [facility] CC: ROSENDO Goldstein; Dr. Bartolome Castillo, Cold Roll Catcher: Signed Normal [facility] White blood cell countOrdere d By: Bartolome Castillo on 11-20-2024 White blood cell count 0-5 SEEN /hpf 0-5 [facility] Absolute lymphocyte countOrd ered By: Imani Bermudez on 11-16-2024 Lymphocytes Auto (Unsp spec) [#/Vol] 1.95 10*3/uL 0.83-4.51 [facility] Absolute neutrophil countOrd ered By: Imani Bermudez on 11-16-2024 Neutrophils (Bld) [#/Vol] 3.5 10*3/uL 2.0-7.7 [facility] Automated lymphocyte count a s percentage of total leukocytesOrdered By: Imani Bermudez on 11-16-2024 Lymphocytes/100 WBC Auto (Unsp spec) 31.9 % 19-41 [facility] Basophil percentageOrdered B y: Imani Bermudez on 11-16-2024 Basophils/100 WBC (Bld) 0.8 % 0-1 [facility] CBC W/Diff, Automatedon 10-31 Absolute Lymph 1.95 X10 3/uL Normal 0.83-4.51 [facility] Comment on above: Performed By: #### L 100.0100, L500.2500 #### [facility] Laboratory [address] [place], [address] Absolute Neut 3.5 X10 3/uL Normal 2.0-7.7 [facility] Comment on above: Performed By: #### L 100.0100, L500.2500 #### [facility] Laboratory [address] [place], [address] Basophils/100 WBC (Bld) 0.8 % Normal 0-1 [facility] Comment on above: Performed By: #### L 100.0100, L500.2500 #### [facility] [address] [place], [address] Eosinophils/100 WBC (Bld) 2.0 % Normal 0-5 [facility] Comment on above: Performed By: #### L 100.0100, L500.2500 #### [facility] [address] [place], [address] Erythrocyte distribution width (RBC) [Ratio] 14.9 % High 11.6-14.6 [facility] Comment on above: Performed By: #### L 100.0100, L500.2500 #### [facility] [address] [place], [address] Hematocrit (Bld) [Volume fraction] 29.8 % Low 37-47 [facility] Comment on above: Performed By: #### L 100.0100, L500.2500 #### [facility] [address] [place], [address] Hemoglobin (Bld) [Mass/Vol] 9.8 g/dL Low 12.0-15.0 [facility] Comment on above: Performed By: #### L 100.0100, L500.2500 #### [facility] [address] [place], [address] IG% 0.300 Normal 0.0-0.9 [facility] Comment on above: Result Comment: IG% - Immature Granulocytes (promyelocytes, myelocytes and metamyelocytes) > 1% indicates that a LEFT SHIFT is Present. Performed By: #### L 100.0100, L500.2500 #### [facility] [address] [place], [address] Lymphocytes/100 WBC (Bld) 31.9 % Normal 19-41 [facility] Comment on above: Performed By: #### L 100.0100, L500.2500 #### [facility] [address] [place], [address] MCH (RBC) [Entitic mass] 28.7 pg Normal 27.0-32.0 [facility] Comment on above: Performed By: #### L 100.0100, L500.2500 #### [facility] [address] [place], [address] MCHC (RBC) [Mass/Vol] 32.9 g/dL Normal 32-36 [facility] Comment on above: Performed By: #### L 100.0100, L500.2500 #### [facility] [address] [place], [address] MCV (RBC) [Entitic vol] 87.4 fL Normal 81-99 [facility] Comment on above: Performed By: #### L 100.0100, L500.2500 #### [facility] [address] [place], [address] Monocytes/100 WBC (Bld) 7.4 % Normal 0-10 [facility] Comment on above: Performed By: #### L 100.0100, L500.2500 #### [facility] [address] [place], [address] Neutrophils/100 WBC (Bld) 57.6 % Normal 47-70 [facility] Comment on above: Performed By: #### L 100.0100, L500.2500 #### [facility] [address] [place], [address] Nucleated RBC (Bld) [#/Vol] 0 10*3/uL Normal 0-5 [facility] Comment on above: Performed By: #### L 100.0100, L500.2500 #### [facility] [address] [place], [address] Platelet mean volume (Bld) [Entitic vol] 8.3 fL Normal 6.2-12.0 [facility] Comment on above: Performed By: #### L 100.0100, L500.2500 #### [facility] [address] [place], [address] Platelets (Bld) [#/Vol] 348 10*3/uL Normal 150-450 [facility] Comment on above: Performed By: #### L 100.0100, L500.2500 #### [facility] [address] [place], [address] RBC (Bld) [#/Vol] 3.41 10*6/uL Low 4.2-5.4 [facility] Comment on above: Performed By: #### L 100.0100, L500.2500 #### [facility] [address] [place], [address] RDW SD 47.6 fl High 35.1-43.9 [facility] Comment on above: Performed By: #### L 100.0100, L500.2500 #### [facility] [address] [place], [address] WBC (Bld) [#/Vol] 6.1 10*3/uL Normal 4.4-11.0 [facility] Comment on above: Performed By: #### L 100.0100, L500.2500 #### [facility] [address] [place], [address] Eosinophil percentageOrdered By: Imani Bermudez on 11-16-2024 Eosinophils/100 WBC (Bld) 2.0 % 0-5 [facility] Erythrocyte distribution wid th ratioOrdered By: Imani Bermudez on 11-16-2024 Erythrocyte distribution width (RBC) [Ratio] 14.9 % High 11.6-14.6 [facility] Erythrocyte distribution wid th standard deviationOrdered By: Imani Bermudez on 11-16-2024 Erythrocyte distribution width (RBC) [Ratio] 47.6 fl High 35.1-43.9 [facility] Gastroenterology Visit Repor ton 11-16-2024 Gastroenterology Visit Report [facility] Gastroenterology [address] [place] [address] OFFICE VISIT Date of Service: 11/16/24 MR#: [id number] Acct: [id number] Name: ORION SORENSEN Rep #: [id number] : 1950 Provider: ROSENDO chung Age/Sex: 74/F Location: [facility] [place].[facility] Status: Signed Intake Vital Signs 11/01/24 10:18 11/16/24 09:53 Height 5 ft 1 in 5 ft 1 in Weight: 188 lb 2 oz BMI 35.5 BP 143/80 H Respiration 18 Pulse 78 Pulse Oximetry (%) 99 Oxygen Delivery Method room air Intake Visit Reasons: Hospital FU Chief Complaint: hospital f/u Community Integration Specialist Required: No Is patient in pain?: Yes (with neck) Allergies celecoxib (From Celebrex) Allergy (Verified 11/20/24 18:20) Hives ramipril Allergy (Verified 11/20/24 18:20) Hives rofecoxib (From Vioxx) Allergy (Verified 11/20/24 18:20) Hives letrozole (From Femara) Adverse Reaction (Verified 11/20/24 18:20) Pain in joints Medications ???Medication ???Instructions ???Recorded ???Confirmed ???Type aspirin 81 mg tablet,delayed 81 mg PO DAILY HEART 09/06/1711/01 History release (Aspir-Low) omeprazole 40 mg capsule,delayed 40 mg PO DAILY REFLUX 09/06/17 History release simvastatin 10 mg tablet (Zocor) 10 mg PO QHS CHOLESTEROL 09/06/17 11/20/24 History valsartan 40 mg tablet (Diovan) 40 mg PO BID BP 09/06/17 11/20/24 History magnesium oxide 400 mg (241.3 mg 400 mg PO DAILY muscle spasm 10/3011/20/24 History magnesium) tablet iron polysaccharide complex-iron 1 tab PO DAILY #60 tabs 11/02/24 0 11/20/24 Rx heme polypeptide 28 mg tablet alendronate 70 mg tablet (Fosamax) 70 mg PO .QOWK osteoporosis 10/3111/20/24 History linaclotide 145 mcg capsule 145 mcg PO QAM #90 caps 11/16/24 0 11/20/24 Rx (Linzess) methocarbamol 750 mg tablet 750 mg PO TID PRN muscle spasms 11/20/24 History duloxetine 30 mg capsule,delayed 30 mg PO DAILY 11/20/24 11/20/24 H istory release furosemide 20 mg tablet 20 mg PO DAILY PRN swelling 11/20/24 History mirabegron 25 mg tablet,extended 25 mg PO DAILY 11/20/24 11/20/24 H istory release 24 hr (Myrbetriq) pen needle, diabetic 32 gauge x 11/20/24 11/20/24 History (BD Luz Elena 2nd Gen Pen Needle) sennosides 8.6 mg-docusate sodium 2 tab PO DAILY 11/20/24 11/20/24 History 50 mg tablet (Senexon-S) insulin aspart U-100 100 unit/mL 20 unit (0.2 mL) subcut TIDCM 11/0111/20/24 Rx (3 mL) subcutaneous pen (Novolog DIABETES 30 days #0 mL FlexPen U-100 Insulin aspart) insulin glargine 100 unit/mL (3 25 unit (0.25 mL) subcut DINNER 11/20/24 Rx mL) subcutaneous pen (Lantus DIABETES 30 days #0 mL Solostar U-100 Insulin) Have you fallen in the past year?: No [facility] Medical History (Updated 11/21/24 @ 00:[address] Sushant Peralta DO) Decompression injury of spinal cord Skin cancer Kidney stones Hypoglycemia Blood transfusion during current hospitalisation UTI (urinary tract infection) Bone fracture Breast cancer Colorectal cancer Cancer Depression Diabetes Kidney disease GERD (gastroesophageal reflux disease) Former smoker Atrial fibrillation Hypertension Family History Father CVA (cerebral vascular accident), Onset Age: 39 Sister Breast cancer Diabetes Mother Thyroid disorder Brother Arthritis Colon cancer Diabetes Mental disorder Psychiatric care CVA (cerebral vascular accident) Social History Smoking Status: Former smoker alcohol intake: current details: wine substance use type: does not use HPI HPI Chief Complaint: hospital f/u Details: ORION SORENSEN, is a 74 F who presents to the office today for LABS 11/02/2024 HGB 9.1 11/01/2024 HGB 9.3 10/31/2024 HGB 8.9 10/30/2024 HGB 9.7 COLON 11/01/2024 - SSP - Hemorrhoids found on perianal exam. - One 7 mm polyp at the splenic flexure, removed with a jumbo cold forceps. Resected and retrieved. - Two bleeding colonic angiodysplastic lesions. Treated with argon plasma coagulation (APC). - Patent end-to-end colo-colonic anastomosis, characterized by healthy appearing mucosa. Recommendation: - Discharge patient to home. - Repeat colonoscopy in [address] 10/30/2024 Mild stool burden within the large bowel. No inflammatory changes of the bowel loops. Umbilical hernia containing a focal loop of transverse colon, no inflammatory changes to suggest strangulation. 1. Acute GI bleed ??? CT of the abdomen and pelvis obtained did show mild stool burden within the large bowel no inflammatory changes. Was also found to have umbilical hernia containing fecal loops of transverse colon no inflammatory changes t (more content not included)... Normal [facility] Hematocrit Auto (Bld) [Volum e fraction]Ordered By: Imani Bermudez on 11-16-2024 Hematocrit (Bld) [Volume fraction] 29.8 % Low 37-47 [facility] Hemoglobin measurementOrdere d By: Imani Bermudez on 11-16-2024 Hemoglobin (Bld) [Mass/Vol] 9.8 g/dL Low 12.0-15.0 [facility] Immature granulocytes/100 WB C Auto (Bld)Ordered By: Imani Bermudez on 11-16-2024 Immature granulocytes/100 WBC (Bld) 0.300 % 0.0-0.9 [facility] Comment on above: IG% - Immature Granu locytes (promyelocytes, myelocytes and metamyelocytes) > 1% indicates that a LEFT SHIFT is Present. Iron measurement (mass/mass) Ordered By: Imani Bermudez on 11-16-2024 Iron (Unsp spec) [Mass/Mass] 44 ug/dL Low 50-170 [facility] Iron+Iron Binding Capacityon 11-16-2024 TIBC 465 ug/dL High 250-450 [facility] Comment on above: Performed By: #### L 100.0100, L500.2500 #### [facility] Laboratory [address] [place], [address] MCV (mean corpuscular volume ) determinationOrdered By: Imani Bermudez on 11-16-2024 MCV (RBC) [Entitic vol] 87.4 fL 81-99 [facility] Mean corpuscular hemoglobin (MCH) determinationOrdered By: Imani Bermudez on 11-16-2024 MCH (RBC) [Entitic mass] 28.7 pg 27.0-32.0 [facility] Mean corpuscular hemoglobin concentration (MCHC) determinationOrdered By: Imani Bermudez on 11-16-2024 MCHC (RBC) [Mass/Vol] 32.9 g/dL 32-36 [facility] Mean platelet volume determi nationOrdered By: Imani Bermudez on 11-16-2024 Platelet mean volume (Bld) [Entitic vol] 8.3 fL 6.2-12.0 [facility] Monocyte percentageOrdered B y: Imani Bermudez on 11-16-2024 Monocytes/100 WBC (Bld) 7.4 % 0-10 [facility] Neutrophil percentageOrdered By: Imani Bermudez on 11-16-2024 Neutrophils/100 WBC (Bld) 57.6 % 47-70 [facility] No Panel InformationOrdered By: Imani Bermudez on 11-16-2024 Unsaturated Iron Binding Capacity 421 ug/dL 228-428 [facility] Nucleated red blood cell per centageOrdered By: Imani Bermudez on 11-16-2024 Nucleated RBC/100 WBC (Bld) [Ratio] 0 % 0-5 [facility] Platelet countOrdered By: Estrada Bermudez on 11-16-2024 Platelets (Bld) [#/Vol] 348 10*3/uL 150-450 [facility] RBC Auto (Bld) [#/Vol]Ordere d By: Imani Bermudez on 11-16-2024 RBC (Bld) [#/Vol] 3.41 10*6/uL Low 4.2-5.4 [facility] Serum or plasma iron saturat ion measurement (mass fraction)Ordered By: Imani Bermudez on 11-16-2024 Iron saturation [Mass fraction] 10.0 % Low 13-59 [facility] Comment on above: Previous reported re sult: 10.0 %Edited by: KARIN on 11/16/24:1218 AMENDED REPORT 11/16/24 1218 IRON SATURATION previously reported as: 10.0 L % White blood cell (WBC) count Ordered By: Imani Bermudez on 11-16-2024 WBC (Bld) [#/Vol] 6.1 10*3/uL 4.4-11.0 [facility] Basic Metabolic Profile (BMP )on 11-03-2024 BUN Normal 4-19 [facility] Comment on above: Result Comment: Canc elled via OM: Order cancelled - Patient discharged Performed By: #### L 100.0100, L500.2500 #### [facility] Laboratory [address] [place], [address] BUN/CRE Normal 10-20 [facility] Comment on above: Result Comment: Canc elled via OM: Order cancelled - Patient discharged Performed By: #### L 100.0100, L500.2500 #### [facility] [address] [place], [address] Calcium Normal 7.6-11.0 [facility] Comment on above: Result Comment: Canc elled via OM: Order cancelled - Patient discharged Performed By: #### L 100.0100, L500.2500 #### [facility] [address] [place], [address] CL Normal 98-108 [facility] Comment on above: Result Comment: Canc elled via OM: Order cancelled - Patient discharged Performed By: #### L 100.0100, L500.2500 #### [facility] [address] [place], [address] CO2 Normal 21.0-32.0 [facility] Comment on above: Result Comment: Canc elled via OM: Order cancelled - Patient discharged Performed By: #### L 100.0100, L500.2500 #### [facility] [address] [place], [address] CREAT,SERUM Normal 0.70-1.20 [facility] Comment on above: Result Comment: Canc elled via OM: Order cancelled - Patient discharged Performed By: #### L 100.0100, L500.2500 #### [facility] [address] [place], [address] eGFR Normal >60 [facility] Comment on above: Result Comment: Canc elled via OM: Order cancelled - Patient discharged Performed By: #### L 100.0100, L500.2500 #### [facility] [address] [place], [address] GAP Normal 5-15 [facility] Comment on above: Result Comment: Canc elled via OM: Order cancelled - Patient discharged Performed By: #### L 100.0100, L500.2500 #### [facility] [address] [place], [address] GLU Normal 70-99 [facility] Comment on above: Result Comment: Canc elled via OM: Order cancelled - Patient discharged Performed By: #### L 100.0100, L500.2500 #### [facility] [address] [place], [address] Potassium Normal 3.3-5.1 [facility] Comment on above: Result Comment: Canc elled via OM: Order cancelled - Patient discharged Performed By: #### L 100.0100, L500.2500 #### [facility] [address] [place], [address] Basic Metabolic Profile (BMP) Normal 133-145 [facility] Comment on above: Result Comment: Canc elled via OM: Order cancelled - Patient discharged Performed By: #### L 100.0100, L500.2500 #### [facility] [address] [place], [address] CBC W/Diff, Automatedon 04-0 Absolute Neut Normal 2.0-7.7 [facility] Comment on above: Result Comment: Canc elled via OM: Order cancelled - Patient discharged Performed By: #### L 100.0100, L500.2500 #### [facility] [address] [place], [address] HCT Normal 37-47 [facility] Comment on above: Result Comment: Canc elled via OM: Order cancelled - Patient discharged Performed By: #### L 100.0100, L500.2500 #### [facility] [address] [place], [address] HGB Normal 12.0-15.0 [facility] Comment on above: Result Comment: Canc elled via OM: Order cancelled - Patient discharged Performed By: #### L 100.0100, L500.2500 #### [facility] [address] [place], [address] MCH Normal 27.0-32.0 [facility] Comment on above: Result Comment: Canc elled via OM: Order cancelled - Patient discharged Performed By: #### L 100.0100, L500.2500 #### [facility] [address] [place], [address] MCHC Normal 32-36 [facility] Comment on above: Result Comment: Canc elled via OM: Order cancelled - Patient discharged Performed By: #### L 100.0100, L500.2500 #### [facility] [address] [place], [address] MCV Normal 81-99 [facility] Comment on above: Result Comment: Canc elled via OM: Order cancelled - Patient discharged Performed By: #### L 100.0100, L500.2500 #### [facility] [address] [place], [address] NEUT% Normal 47-70 [facility] Comment on above: Result Comment: Canc elled via OM: Order cancelled - Patient discharged Performed By: #### L 100.0100, L500.2500 #### [facility] [address] [place], [address] PLT Normal 150-450 [facility] Comment on above: Result Comment: Canc elled via OM: Order cancelled - Patient discharged Performed By: #### L 100.0100, L500.2500 #### [facility] [address] [place], [address] RBC Normal 4.2-5.4 [facility] Comment on above: Result Comment: Canc elled via OM: Order cancelled - Patient discharged Performed By: #### L 100.0100, L500.2500 #### [facility] [address] [place], [address] RDW CV Normal 11.6-14.6 [facility] Comment on above: Result Comment: Canc elled via OM: Order cancelled - Patient discharged Performed By: #### L 100.0100, L500.2500 #### [facility] [address] [place], [address] RDW SD Normal 35.1-43.9 [facility] Comment on above: Result Comment: Canc elled via OM: Order cancelled - Patient discharged Performed By: #### L 100.0100, L500.2500 #### [facility] [address] [place], [address] WBC Normal 4.4-11.0 [facility] Comment on above: Result Comment: Canc elled via OM: Order cancelled - Patient discharged Performed By: #### L 100.0100, L500.2500 #### [facility] [address] [place], [address] Absolute lymphocyte countOrd ered By: Sushant Olmedo on 11-02-2024 Lymphocytes Auto (Unsp spec) [#/Vol] 1.89 10*3/uL 0.83-4.51 [facility] Absolute neutrophil countOrd ered By: Sushant Olmedo on 11-02-2024 Neutrophils (Bld) [#/Vol] 2.4 10*3/uL 2.0-7.7 [facility] Anion gap in Serum or Plasma Ordered By: Sushant Olmedo on 11-02-2024 Anion gap [Moles/Vol] 11 mmol/L 5-15 [facility] Automated lymphocyte count a s percentage of total leukocytesOrdered By: Sushant Olmedo on 11-02-2024 Lymphocytes/100 WBC Auto (Unsp spec) 39.7 % - [facility] BUN/creatinine ratioOrdered By: Sushant Olmedo on 11-02-2024 Urea nitrogen/Creatinine [Mass ratio] 7.7 mg/mg Low 10-20 [facility] Basic Metabolic Profile (BMP )on 11-02-2024 BUN/CRE 7.7 RATIO Low 10-20 [facility] Comment on above: Performed By: #### M 300.4600, M300.4500 #### [facility] [address] [place], [address] Calcium [Mass/Vol] 8.8 mg/dL Normal 7.6-11.0 [facility] Comment on above: Performed By: #### M 300.4600, M300.4500 #### [facility] [address] [place], [address] Chloride [Moles/Vol] 106 mmol/L Normal 98-108 [facility] Comment on above: Performed By: #### M 300.4600, M300.4500 #### [facility] [address] [place], [address] CO2 [Moles/Vol] 21.5 mmol/L Normal 21.0-32.0 [facility] Comment on above: Performed By: #### M 300.4600, M300.4500 #### [facility] [address] [place], [address] Creatinine [Mass/Vol] 0.87 mg/dL Normal 0.70-1.20 [facility] Comment on above: Performed By: #### M 300.4600, M300.4500 #### [facility] [address] [place], [address] ECRCL 54.33 ml/min Normal 50-250 [facility] Comment on above: Performed By: #### M 300.4600, M300.4500 #### [facility] [address] [place], [address] GAP 11 Normal 5-15 [facility] Comment on above: Performed By: #### M 300.4600, M300.4500 #### [facility] [address] [place], [address] GFR/1.73 sq M.predicted among non-blacks MDRD (S/P/Bld) [Vol rate/Area] 69 mL/min/{1.73_m2} Normal >60 [facility] Comment on above: Result Comment: mL/m in/1.73m2 CKD-EPI Creatinine Equation (2020) Performed By: #### M 300.4600, M300.4500 #### [facility] [address] [place], [address] Glucose [Mass/Vol] 157 mg/dL High 70-99 [facility] Comment on above: Performed By: #### M 300.4600, M300.4500 #### [facility] [address] [place], [address] Potassium [Moles/Vol] 4.0 mmol/L Normal 3.3-5.1 [facility] Comment on above: Result Comment: Hemo lysis present, Results??could be affected. ?? Performed By: #### M 300.4600, M300.4500 #### [facility] [address] [place], [address] Sodium [Moles/Vol] 139 mmol/L Normal 133-145 [facility] Comment on above: Performed By: #### M 300.4600, M300.4500 #### [facility] [address] [place], [address] Urea nitrogen [Mass/Vol] 7 mg/dL Normal 4-19 [facility] Comment on above: Performed By: #### M 300.4600, M300.4500 #### [facility] [address] [place], [address] Basophil percentageOrdered B y: Sushant Griffithconylakshmi on 11-02-2024 Basophils/100 WBC (Bld) 0.6 % 0-1 [facility] Bedside Glucoseon 11-02-2024 FINGERSTICK GLU 260 mg/dL High 74-106 [facility] Comment on above: Result Comment: FITZ GEMENT OF PATIENT CARE PER NURSING PROTOCOL Performed By: #### L 501.080 #### [facility] [address] [place], [address] FINGERSTICK GLU 144 mg/dL High 74-106 [facility] Comment on above: Result Comment: FITZ GEMENT OF PATIENT CARE PER NURSING PROTOCOL Performed By: #### L 100.0100, L500.2500 #### [facility] [address] [place], [address] CBC W/Diff, Automatedon Absolute Lymph 1.89 X10 3/uL Normal 0.83-4.51 [facility] Comment on above: Performed By: #### M 300.4600, M300.4500 #### [facility] [address] [place], [address] Absolute Neut 2.4 X10 3/uL Normal 2.0-7.7 [facility] Comment on above: Performed By: #### M 300.4600, M300.4500 #### [facility] [address] [place], [address] Basophils/100 WBC (Bld) 0.6 % Normal 0-1 [facility] Comment on above: Performed By: #### M 300.4600, M300.4500 #### [facility] [address] [place], [address] Eosinophils/100 WBC (Bld) 3.2 % Normal 0-5 [facility] Comment on above: Performed By: #### M 300.4600, M300.4500 #### [facility] [address] [place], [address] Erythrocyte distribution width (RBC) [Ratio] 14.9 % High 11.6-14.6 [facility] Comment on above: Performed By: #### M 300.4600, M300.4500 #### [facility] [address] [place], [address] Hematocrit (Bld) [Volume fraction] 27.3 % Low 37-47 [facility] Comment on above: Performed By: #### M 300.4600, M300.4500 #### [facility] [address] [place], [address] Hemoglobin (Bld) [Mass/Vol] 9.1 g/dL Low 12.0-15.0 [facility] Comment on above: Performed By: #### M 300.4600, M300.4500 #### [facility] [address] [place], [address] IG% 0.200 Normal 0.0-0.9 [facility] Comment on above: Result Comment: IG% - Immature Granulocytes (promyelocytes, myelocytes and metamyelocytes) > 1% indicates that a LEFT SHIFT is Present. Performed By: #### M 300.4600, M300.4500 #### [facility] [address] [place], [address] Lymphocytes/100 WBC (Bld) 39.7 % Normal 19-41 [facility] Comment on above: Performed By: #### M 300.4600, M300.4500 #### [facility] [address] [place], [address] MCH (RBC) [Entitic mass] 29.4 pg Normal 27.0-32.0 [facility] Comment on above: Performed By: #### M 300.4600, M300.4500 #### [facility] [address] [place], [address] MCHC (RBC) [Mass/Vol] 33.3 g/dL Normal 32-36 [facility] Comment on above: Performed By: #### M 300.4600, M300.4500 #### [facility] [address] [place], [address] MCV (RBC) [Entitic vol] 88.3 fL Normal 81-99 [facility] Comment on above: Performed By: #### M 300.4600, M300.4500 #### [facility] [address] [place], [address] Monocytes/100 WBC (Bld) 6.7 % Normal 0-10 [facility] Comment on above: Performed By: #### M 300.4600, M300.4500 #### [facility] [address] [place], [address] Neutrophils/100 WBC (Bld) 49.6 % Normal 47-70 [facility] Comment on above: Performed By: #### M 300.4600, M300.4500 #### [facility] [address] [place], [address] Nucleated RBC (Bld) [#/Vol] 0 10*3/uL Normal 0-5 [facility] Comment on above: Performed By: #### M 300.4600, M300.4500 #### [facility] [address] [place], [address] Platelet mean volume (Bld) [Entitic vol] 8.3 fL Normal 6.2-12.0 [facility] Comment on above: Performed By: #### M 300.4600, M300.4500 #### [facility] [address] [place], [address] Platelets (Bld) [#/Vol] 225 10*3/uL Normal 150-450 [facility] Comment on above: Performed By: #### M 300.4600, M300.4500 #### [facility] [address] [place], [address] RBC (Bld) [#/Vol] 3.09 10*6/uL Low 4.2-5.4 [facility] Comment on above: Performed By: #### M 300.4600, M300.4500 #### [facility] [address] [place], [address] RDW SD 47.5 fl High 35.1-43.9 [facility] Comment on above: Performed By: #### M 300.4600, M300.4500 #### [facility] [facility] [address] [place], [address] WBC (Bld) [#/Vol] 4.8 10*3/uL Normal 4.4-11.0 [facility] Comment on above: Performed By: #### M 300.4600, M300.4500 #### [facility] [address] [place], [address] Carbon dioxide, total [Moles /volume] in Central venous bloodOrdered By: Sushant Olmedo on 11-02-2024 CO2 [Moles/Vol] 21.5 mmol/L 21.0-32.0 [facility] Chloride assayOrdered By: Farhan Olmedo on 11-02-2024 Chloride [Moles/Vol] 106 mmol/L 98-108 [facility] Eosinophil percentageOrdered By: Sushant Olmedo on 11-02-2024 Eosinophils/100 WBC (Bld) 3.2 % 0-5 [facility] Erythrocyte distribution wid th (RBC) [Ratio]Ordered By: Sushant Olmedo on 11-02-2024 Erythrocyte distribution width (RBC) [Entitic vol] 47.5 fL High 35.1-43.9 [facility] Erythrocyte distribution wid th ratioOrdered By: Sushant Olmedo on 11-02-2024 Erythrocyte distribution width (RBC) [Ratio] 14.9 % High 11.6-14.6 [facility] Erythrocyte distribution wid th standard deviationOrdered By: Sushant Olmedo on 11-02-2024 Erythrocyte distribution width (RBC) [Ratio] 47.5 fl High 35.1-43.9 [facility] Estimation of creatinine isamar aranceOrdered By: Sushant Olmedo on 11-02-2024 Estimated Creatinine Clearance Calc 54.33 ml/min 50-250 [facility] GFR/1.73 sq M.predicted erika g non-blacks MDRD (S/P/Bld) [Vol rate/Area]Ordered By: Sushant Olmedo on 11-02-2024 Estimated GFR (MDRD) Non-Af Amer 69 >60 [facility] Comment on above: mL/min/1.73m2 CKD-EP I Creatinine Equation (2020) Glomerular filtration rate ( GFR) estimation/1.73 sq m using serum, plasma, or whole bOrdered By: Sushant Olmedo on 11-02-2024 GFR/1.73 sq M.predicted among non-blacks MDRD (S/P/Bld) [Vol rate/Area] 69 mL/min/{1.73_m2} >60 [facility] Comment on above: mL/min/1.73m2 CKD-EP I Creatinine Equation (2020) Glucose measurement at bedsi deOrdered By: Sushant Olmedo on 11-02-2024 Bedside Glucose (Misc Panel) 260 mg/dL High 74-106 [facility] Comment on above: MANAGEMENT OF PATIEN T CARE PER NURSING PROTOCOL Glucose [Mass/Vol] 260 mg/dL High 74-106 [facility] Comment on above: MANAGEMENT OF PATIEN T CARE PER NURSING PROTOCOL Hematocrit Auto (Bld) [Volum e fraction]Ordered By: Sushant Olmedo on 11-02-2024 Hematocrit (Bld) [Volume fraction] 27.3 % Low 37-47 [facility] Hemoglobin measurementOrdere d By: Sushant Olmedo on 11-02-2024 Hemoglobin (Bld) [Mass/Vol] 9.1 g/dL Low 12.0-15.0 [facility] Immature granulocytes/100 WB C Auto (Bld)Ordered By: Sushant Olmedo on 11-02-2024 Immature granulocytes/100 WBC (Bld) 0.200 % 0.0-0.9 [facility] Comment on above: IG% - Immature Granu locytes (promyelocytes, myelocytes and metamyelocytes) > 1% indicates that a LEFT SHIFT is Present. Lymphocytes Auto (Unsp spec) [#/Vol]Ordered By: Sushant Olmedo on 11-02-2024 Lymphocytes (Bld) [#/Vol] 1.89 10*3/uL 0.83-4.51 [facility] Lymphocytes/100 WBC Auto (Un sp spec)Ordered By: Sushant Olmedo on 11-02-2024 Lymphocytes/100 WBC (Bld) 39.7 % 19-41 [facility] MCV (mean corpuscular volume ) determinationOrdered By: Sushant Olmedo on 11-02-2024 MCV (RBC) [Entitic vol] 88.3 fL 81-99 [facility] Mean corpuscular hemoglobin (MCH) determinationOrdered By: Sushant Olmedo on 11-02-2024 MCH (RBC) [Entitic mass] 29.4 pg 27.0-32.0 [facility] Mean corpuscular hemoglobin concentration (MCHC) determinationOrdered By: Sushant Olmedo on 11-02-2024 MCHC (RBC) [Mass/Vol] 33.3 g/dL 32-36 [facility] Mean platelet volume determi nationOrdered By: Sushant Olmedo on 11-02-2024 Platelet mean volume (Bld) [Entitic vol] 8.3 fL 6.2-12.0 [facility] Monocyte percentageOrdered B y: Sushant Olmedo on 11-02-2024 Monocytes/100 WBC (Bld) 6.7 % 0-10 [facility] Neutrophil percentageOrdered By: Sushant Olmedo on 11-02-2024 Neutrophils/100 WBC (Bld) 49.6 % 47-70 [facility] Nucleated red blood cell per centageOrdered By: Sushant Olmedo on 11-02-2024 Nucleated RBC/100 WBC (Bld) [Ratio] 0 % 0-5 [facility] Platelet countOrdered By: Farhan Olmedo on 11-02-2024 Platelets (Bld) [#/Vol] 225 10*3/uL 150-450 [facility] Potassium (Unsp spec) [Mass/ Vol]Ordered By: Sushant Olmedo on 11-02-2024 Potassium [Moles/Vol] 4.0 mmol/L 3.3-5.1 [facility] Comment on above: Hemolysis present, R esults could be affected. Potassium measurement (mass/ volume)Ordered By: Sushant Olmedo on 11-02-2024 Potassium (Unsp spec) [Mass/Vol] 4.0 mmol/L 3.3-5.1 [facility] Comment on above: Hemolysis present, R esults could be affected. RBC Auto (Bld) [#/Vol]Ordere d By: Sushant Olmedo on 11-02-2024 RBC (Bld) [#/Vol] 3.09 10*6/uL Low 4.2-5.4 [facility] Serum creatinine measurement (mass/volume)Ordered By: Sushant Olmedo on 11-02-2024 Creatinine [Mass/Vol] 0.87 mg/dL 0.70-1.20 [facility] Serum glucose measurement (m ass/volume)Ordered By: Sushant Olmedo on 11-02-2024 Glucose [Mass/Vol] 157 mg/dL High 70-99 [facility] Serum or plasma calcium carla urement (mass/volume)Ordered By: Sushant Olmedo on 11-02-2024 Calcium [Mass/Vol] 8.8 mg/dL 7.6-11.0 [facility] Serum or plasma urea nitroge n measurement (mass/volume)Ordered By: Sushant Olmedo on 11-02-2024 Urea nitrogen [Mass/Vol] 7 mg/dL 4-19 [facility] Sodium levelOrdered By: Lyle Olmedo on 11-02-2024 Sodium [Moles/Vol] 139 mmol/L 133-145 [facility] White blood cell (WBC) count Ordered By: Sushant Olmedo on 11-02-2024 WBC (Bld) [#/Vol] 4.8 10*3/uL 4.4-11.0 [facility] Basic Metabolic Profile (BMP )on 11-01-2024 BUN/CRE 10.1 RATIO Normal 10-20 [facility] Comment on above: Performed By: #### M 300.4600, M300.4500 #### [facility] [address] [place], [address] Calcium [Mass/Vol] 8.5 mg/dL Normal 7.6-11.0 [facility] Comment on above: Performed By: #### M 300.4600, M300.4500 #### [facility] [address] [place], [address] Chloride [Moles/Vol] 107 mmol/L Normal 98-108 [facility] Comment on above: Performed By: #### M 300.4600, M300.4500 #### [facility] [address] [place], [address] CO2 [Moles/Vol] 20.7 mmol/L Low 21.0-32.0 [facility] Comment on above: Performed By: #### M 300.4600, M300.4500 #### [facility] [address] [place], [address] Creatinine [Mass/Vol] 0.76 mg/dL Normal 0.70-1.20 [facility] Comment on above: Performed By: #### M 300.4600, M300.4500 #### [facility] [address] [place], [address] ECRCL 59.09 ml/min Normal 50-250 [facility] Comment on above: Performed By: #### M 300.4600, M300.4500 #### [facility] [address] [place], [address] GAP 11 Normal 5-15 [facility] Comment on above: Performed By: #### M 300.4600, M300.4500 #### [facility] [address] [place], [address] GFR/1.73 sq M.predicted among non-blacks MDRD (S/P/Bld) [Vol rate/Area] 82 mL/min/{1.73_m2} Normal >60 [facility] Comment on above: Result Comment: mL/m in/1.73m2 CKD-EPI Creatinine Equation (2020) Performed By: #### M 300.4600, M300.4500 #### [facility] [address] [place], [address] Glucose [Mass/Vol] 183 mg/dL High 70-99 [facility] Comment on above: Performed By: #### M 300.4600, M300.4500 #### [facility] [address] [place], [address] Potassium [Moles/Vol] 4.2 mmol/L Normal 3.3-5.1 [facility] Comment on above: Performed By: #### M 300.4600, M300.4500 #### [facility] [address] [place], [address] Sodium [Moles/Vol] 138 mmol/L Normal 133-145 [facility] Comment on above: Performed By: #### M 300.4600, M300.4500 #### [facility] [address] [place], [address] Urea nitrogen [Mass/Vol] 8 mg/dL Normal 4-19 [facility] Comment on above: Performed By: #### M 300.4600, M300.4500 #### [facility] [address] [place], [address] Bedside Glucoseon 11-01-2024 FINGERSTICK GLU 238 mg/dL High 74-106 [facility] Comment on above: Result Comment: FITZ GEMENT OF PATIENT CARE PER NURSING PROTOCOL Performed By: #### M 300.4600, M300.4500 #### [facility] [address] [place], [address] FINGERSTICK GLU 154 mg/dL High 74-106 [facility] Comment on above: Result Comment: FITZ GEMENT OF PATIENT CARE PER NURSING PROTOCOL Performed By: #### M 300.4600, M300.4500 #### [facility] [address] [place], [address] FINGERSTICK GLU 177 mg/dL High 74-106 [facility] Comment on above: Result Comment: FITZ GEMENT OF PATIENT CARE PER NURSING PROTOCOL Performed By: #### L 100.0100, L500.2500 #### [facility] [address] [place], [address] CBC W/Diff, Automatedon 04-0 Absolute Lymph 1.99 X10 3/uL Normal 0.83-4.51 [facility] Comment on above: Performed By: #### M 300.4600, M300.4500 #### [facility] [address] [place], [address] Absolute Neut 2.8 X10 3/uL Normal 2.0-7.7 [facility] Comment on above: Performed By: #### M 300.4600, M300.4500 #### [facility] [address] [place], [address] Basophils/100 WBC (Bld) 0.4 % Normal 0-1 [facility] Comment on above: Performed By: #### M 300.4600, M300.4500 #### [facility] [address] [place], [address] Eosinophils/100 WBC (Bld) 2.5 % Normal 0-5 [facility] Comment on above: Performed By: #### M 300.4600, M300.4500 #### [facility] [address] [place], [address] Erythrocyte distribution width (RBC) [Ratio] 15.1 % High 11.6-14.6 [facility] Comment on above: Performed By: #### M 300.4600, M300.4500 #### [facility] [address] [place], [address] Hematocrit (Bld) [Volume fraction] 28.2 % Low 37-47 [facility] Comment on above: Performed By: #### M 300.4600, M300.4500 #### [facility] [address] [place], [address] Hemoglobin (Bld) [Mass/Vol] 9.3 g/dL Low 12.0-15.0 [facility] Comment on above: Performed By: #### M 300.4600, M300.4500 #### [facility] [address] [place], [address] IG% 0.200 Normal 0.0-0.9 [facility] Comment on above: Result Comment: IG% - Immature Granulocytes (promyelocytes, myelocytes and metamyelocytes) > 1% indicates that a LEFT SHIFT is Present. Performed By: #### M 300.4600, M300.4500 #### [facility] [address] [place], [address] Lymphocytes/100 WBC (Bld) 37.7 % Normal 19-41 [facility] Comment on above: Performed By: #### M 300.4600, M300.4500 #### [facility] [address] [place], [address] MCH (RBC) [Entitic mass] 29.1 pg Normal 27.0-32.0 [facility] Comment on above: Performed By: #### M 300.4600, M300.4500 #### [facility] [address] [place], [address] MCHC (RBC) [Mass/Vol] 33.0 g/dL Normal 32-36 [facility] Comment on above: Performed By: #### M 300.4600, M300.4500 #### [facility] [address] [place], [address] MCV (RBC) [Entitic vol] 88.1 fL Normal 81-99 [facility] Comment on above: Performed By: #### M 300.4600, M300.4500 #### [facility] [address] [place], [address] Monocytes/100 WBC (Bld) 7.2 % Normal 0-10 [facility] Comment on above: Performed By: #### M 300.4600, M300.4500 #### [facility] [address] [place], [address] Neutrophils/100 WBC (Bld) 52.0 % Normal 47-70 [facility] Comment on above: Performed By: #### M 300.4600, M300.4500 #### [facility] [address] [place], [address] Nucleated RBC (Bld) [#/Vol] 0 10*3/uL Normal 0-5 [facility] Comment on above: Performed By: #### M 300.4600, M300.4500 #### [facility] [address] [place], [address] Platelet mean volume (Bld) [Entitic vol] 8.2 fL Normal 6.2-12.0 [facility] Comment on above: Performed By: #### M 300.4600, M300.4500 #### [facility] [address] [place], [address] Platelets (Bld) [#/Vol] 236 10*3/uL Normal 150-450 [facility] Comment on above: Performed By: #### M 300.4600, M300.4500 #### [facility] [address] [place], [address] RBC (Bld) [#/Vol] 3.20 10*6/uL Low 4.2-5.4 [facility] Comment on above: Performed By: #### M 300.4600, M300.4500 #### [facility] [address] [place], [address] RDW SD 48.8 fl High 35.1-43.9 [facility] Comment on above: Performed By: #### M 300.4600, M300.4500 #### [facility] [address] [place], [address] WBC (Bld) [#/Vol] 5.3 10*3/uL Normal 4.4-11.0 [facility] Comment on above: Performed By: #### M 300.4600, M300.4500 #### [facility] [address] [place], [address] Colonoscopy Reporton 025 Colonoscopy Report [facility] Medical Records Department [address] [place] [address] Colonoscopy Report MR#: [id number] Acct: [id number] Name: ORION SORENSEN Rep #: [id number] : 1950 73 From: Charles Glez DO PCP: ROSENDO Perea Status:ADM IN Patient Name: Orion Sorensen Procedure Date: 11/01/2024 2:26 PM Date of : 1950 Age: 73 Procedure: Colonoscopy Indications: Hematochezia Providers: Charles Glez DO Medicines: Monitored Anesthesia Care Patient Profile: This is a 73 year old female. Refer to note in patient chart for documentation of history and physical. Last Colonoscopy: within the past 3 years. Complications: No immediate complications. Procedure: Pre-Anesthesia Assessment: - Prior to the procedure, a History and Physical was performed, and patient medications and allergies were reviewed. The patient is competent. The risks and benefits of the procedure and the sedation options and risks were discussed with the patient. All questions were answered and informed consent was obtained. Patient identification and proposed procedure were verified by the physician in the pre-procedure area. Mental Status Examination: alert and oriented. Airway Examination: normal oropharyngeal airway and neck mobility. Respiratory Examination: clear to auscultation. CV Examination: normal. Prophylactic Antibiotics: The patient does not require prophylactic antibiotics. Prior Anticoagulants: The patient has taken no anticoagulant or antiplatelet agents except for NSAID medication. ASA Grade Assessment: II - A patient with mild systemic disease. After reviewing the risks and benefits, the patient was deemed in satisfactory condition to undergo the procedure. The anesthesia plan was to use monitored anesthesia care (MAC). Immediately prior to administration of medications, the patient was re-assessed for adequacy to receive sedatives. The heart rate, respiratory rate, oxygen saturations, blood pressure, adequacy of pulmonary ventilation, and response to care were monitored throughout the procedure. The physical status of the patient was re-assessed after the procedure. After I obtained informed consent, the scope was passed under direct vision. Throughout the procedure, the patient's blood pressure, pulse, and oxygen saturations were monitored continuously. The colonoscope was introduced through the anus and advanced to the cecum, identified by appendiceal orifice and ileocecal valve. The colonoscopy was performed without difficulty. The patient tolerated the procedure well. Scope In: 2:58:19 PM Scope Withdrawal Time 0 hours 7 minutes 7 seconds Scope Out: 3:09:27 PM Total Procedure Duration Time 0 hours 11 minutes 8 seconds Findings: Hemorrhoids were found on perianal exam. A 7 mm polyp was found in the splenic flexure. The polyp was sessile. The polyp was removed with a jumbo cold forceps. Resection and retrieval were complete. Verification of patient identification for the specimen was done. Estimated blood loss was minimal. Two small localized angiodysplastic lesions with bleeding were found in the recto-sigmoid colon. Coagulation for hemostasis using argon plasma at 0.3 liters/minute and 20 carranza was successful. Estimated blood loss was minimal. There was evidence of a prior end-to-end colo-colonic anastomosis in the recto-sigmoid colon. This was patent and was characterized by healthy appearing mucosa. Impression: - Hemorrhoids found on perianal exam. - One 7 mm polyp at the splenic flexure, removed with a jumbo cold forceps. Resected and retrieved. - Two bleeding colonic angiodysplastic lesions. Treated with argon plasma coagulation (APC). - Patent end-to-end colo-colonic anastomosis, characterized by healthy appearing mucosa. Recommendation: - Discharge patient to home. - Repeat colonoscopy in 1 year. - Continue present medications. Procedure Code(s): --- Professional --- 07670, 59, Colonoscopy, flexible; with control of bleeding, any method 10857, Colonoscopy, flexible; with biopsy, single or multiple CPT copyright 2021 [employer]. All rights reserved. The codes documented in this report are preliminary and upon vp review may be revised to meet current compliance requirements. Charles Glez DO 11/01/2024 3:19:31 PM This report has been signed electronically. Number of Addenda: 0 Note Initiated On: 11/01/2024 2:26 PM 11/01/24 1519 Date Charles Pearl Signature: Date (if indicated) CC: ROSENDO Glez DO Date Dictated: 11/01/24 1426 Date Transcribed: Cold Roll Catcher: TEGAN Signed [facility] MR/CON.PCMFaizan 11-01-2024 MR/CON.PCM.[facility] Medical Records Department [address] [place] [address] Consultation - GI 11/01/24 1438 MR#: [id number] Acct: [id number] Name: ORION SORENSEN Rep #: [id number] : 1950 73 From: Charles Glez DO PCP: Terrie Goldstein RN PROGRESSIVE CARE-C Status:ADM IN Location: [place] [id number] HPI Consult Data Date of Consult: 11/01/24 HPI Narrative Reason for Consultation: GI bleed HPI Narrative: ORION SORENSEN, is a 73 F who presented to the emergency department complaint of rectal bleeding for about a month off-and-on. She has history of hemorrhoids. Patient also started with some abdominal pain yesterday in the left lower abdomen. She does have history of prior diverticulitis. She has history of prior colon cancer with partial bowel resection. Patient denies fevers or chills or sweats. She denies vomiting. She is not anticoagulated [facility] Medical History Breast cancer Colorectal cancer Cancer Depression Diabetes Kidney disease GERD (gastroesophageal reflux disease) Former smoker Atrial fibrillation Hypertension Home Medications ???Medication ???Instructions ???Recorded ???Last Taken ???Type alendronate 70 mg tablet (Fosamax) 70 mg PO QWEEK osteoporosis 12/1710/30/24 History aspirin 81 mg tablet,delayed 81 mg PO DAILY HEART 09/06/17 Unkn own History release (Aspir-Low) insulin aspart U-100 100 unit/mL 24 unit subcut TIDCM DIABETES 12/17 Unknown History (3 mL) subcutaneous pen (Novolog FlexPen U-100 Insulin aspart) insulin glargine 100 unit/mL (3 35 unit subcut QHS DIABETES Unknown History mL) subcutaneous pen (Lantus Solostar U-100 Insulin) omeprazole 40 mg capsule,delayed 40 mg PO DAILY REFLUX 09/06/1707/19 06:00 History release simvastatin 10 mg tablet (Zocor) 10 mg PO QHS CHOLESTEROL 09/06/17 Unknown History valsartan 40 mg tablet (Diovan) 40 mg PO BID BP 09/06/17 09/13/17 06:00 History magnesium oxide 400 mg (241.3 mg 400 mg PO DAILY muscle spasm 10/30 Unknown History magnesium) tablet oxybutynin chloride 10 mg 10 mg PO DAILY bladder 10/30/24 Un known History tablet,extended release 24 hr Allergy/AdvReac Type Severity Reaction Status Date / Time celecoxib (From Celebrex) Allergy Hives Verified 10/30/24 16:49 ramipril Allergy Hives Verified 10/30/24 16:49 rofecoxib (From Vioxx) Allergy Hives Verified 10/30/24 16:49 letrozole (From Femara) AdvReac Pain in Verified 10/30/24 16:49 joints Social History Smoking Status: Former smoker ROS Constitutional Constitutional: Denies fatigue, fever(s), poor appetite, weight gain or weight loss Gastrointestinal Gastrointestinal: Denies belching, bloating, change in bowel habits, change in stool character, chewing difficulty, coffee ground emesis, constipation, cramping, diarrhea, dyspepsia, dysphagia, early satiety, excessive flatus, fecal incontinence, heartburn, hematemesis, hematochezia, hemorrhoids, loose stools, melena, nausea, odynophagia, rectal bleeding, tenesmus, vomiting or weight changes Physical Exam Const alert, oriented x3, no apparent distress and healthy appearing General Appearance: cooperative GI normal to inspection, nondistended, normoactive bowel sounds, soft to palpation, non-tender and non- distended Percussion: normal to percussion Rectal Exam: deferred Lab / Micro Data 11/01/24 05:27 11/01/24 05:27 Labs: Laboratory Results - last 24 hr 10/31/24 16:41: POC Glucose 162 H 10/31/24 23:01: POC Glucose 186 H 11/01/24 05:27: WBC 5.3, RBC 3.20 L, Hgb 9.3 L, Hct 28.2 L, MCV 88.1, MCH 29.1, MCHC 33.0, RDW Std Deviation 48.8 H, RDW Coeff of Miriam 15.1 H, Plt Count 236, MPV 8.2, Immature Gran % (Auto) 0.200, Neut % (Auto) 52.0, Lymph % (Auto) 37.7, [place] % (Auto) 7.2, Eos % (Auto) 2.5, Baso % (Auto) 0.4, Absolute Neuts (auto) 2.8, Absolute Lymphs (auto) 1.99, Nucleated RBC % 0, Sodium 138, Potassium 4.2, Chloride 107, Carbon Dioxide 20.7 L, Anion Gap 11, BUN 8, Creatinine 0.76, Estim Creat Clear Calc 59.09, Est GFR (MDRD) Non-Af 82, BUN/Creatinine Ratio 10.1, Glucose 183 H, Calcium 8.5, Phosphorus 3.4, Magnesium 1.7 11/01/24 06:35: POC Glucose 177 H Assessment Plan Assessment/Plan (1) Weakness: (2) Anemia: (3) Acute lower GI bleeding: PLAN: Plan 1 73-year-old with history of colon cancer status postresection with primary anastomosis, breast cancer and history of diverticulosis with hemorrhoids with a acute GI bleed. Differential diagnosis does include diverticular bleeding, anastomotic bleeding, ischemic colitis, hemorrhoidal bleeding. She will undergo colonoscopy. She was explained alternatives, risk and benefits include not withstanding bleeding, fracture, sepsi (more content not included)... Normal [facility] Medical Records Department [address] [place] [address] Anesthesia Postop Eval I 11/01/24 1527 MR#: [id number] Acct: [id number] Name: ORION SORENSEN Rep #: [id number] : 1950 73 From: Nnamdi Cisse PCP: Terrie Goldstein, NELLA-C Status:ADM IN Y Race: C Location: [place] [id number] Anesthesia: Postop Eval I Current Vital Signs Temperature: 97 F Pulse Rate: 72 Blood Pressure: 107/64 Respiratory Rate: 18 Pulse Ox: 94 Oxygen Delivery Method: Room Air Assessment Airway patent: Yes Spontaneous unlabored respirations: Yes Mental status: Asleep nausea: No Vomiting: No Anesthesia Complication: No Fluid Hydration Crystalloid volume administer (ml): 40 Total IV fluid infused: 40 Progress Note Anesthesia document: Postop Eval 1 completed: Yes 11/01/24 1528 Date Nnamdi Redman Signature: Date CC: Signed [facility] MR/POSTOP.[facility] Medical Records Department [address] [place] [address] Anesthesia Postop Eval I 11/01/24 1520 MR#: [id number] Acct: [id number] Name: ORION SORENSEN Rep #: [id number] : 1950 73 From: Robe Heart MD PCP: ROSENDO Perea Status:ADM IN Y Race: C Location: [place] [address] Anesthesia: Postop Eval I Current Vital Signs Temperature: 97 F Pulse Rate: 71 Blood Pressure: 107/64 Respiratory Rate: 14 Pulse Ox: 93 Oxygen Delivery Method: Room Air Assessment Airway patent: Yes Spontaneous unlabored respirations: Yes Mental status: Awake nausea: No Vomiting: No Anesthesia Complication: No Fluid Hydration Crystalloid volume administer (ml): 10 Total IV fluid infused: 10 Progress Note Anesthesia document: Postop Eval 1 completed: Yes 11/01/24 1550 Date Robe Redman Signature: Date CC: Signed [facility] MR/[id number] 11-01-2024 MR/POSTOPAN2 [facility] Medical Records Department [address] [place] [address] Anesthesia Postop Eval II 11/01/24 1550 MR#: [id number] Acct: [id number] Name: ORION SORENSEN Rep #: [id number] : 1950 73 From: Robe Heart MD PCP: ROSENDO Perea Status:ADM IN Y Race: C Location: [place] [address] Anesthesia Postop Eval I Sum Postop Eval Completion status Anesthesia document: Postop Eval 1 completed: Yes Anesthesia Postop Eval I Summary Anesthesia Postop Eval I Summary: Anesthesia Postop Eval I: Assessment Summary Airway patent Yes 11/01/24 15:50 Spontaneous unlabored Yes 11/01/24 15:50 respirations Mental status Awake 11/01/24 15:50 nausea No 11/01/24 15:50 Vomiting No 11/01/24 15:50 Anesthesia Postop Eval I: Fluid Summary Crystalloid volume administer 10 11/01/24 15:50 (ml) Colloids volume administered ( ml) Blood Product volume administered (ml) Total IV fluid infused 10 11/01/24 15:50 Anesthesia Postop Eval I: Summary Notes Anesthesia Complication No 11/01/24 15:50 Anesthesia Complication Comment: Post-operative progress note Anesthesia: Postop Eval II Evaluation Mental status: Awake Pain Level: 0 nausea: No Vomiting: No 11/01/24 1550 Date Robe Heart MD Cosigner Signature: Date CC: Signed Normal [facility] Magnesiumon 11-01-2024 Magnesium [Mass/Vol] 1.7 mg/dL Normal 1.5-2.2 [facility] Comment on above: Performed By: #### M 300.6335, M300.4500 #### [facility] Laboratory [address] [place], [place], [address] Magnesium (Unsp spec) [Mass/ Vol]Ordered By: Sushant Olmedo on 11-01-2024 Magnesium [Mass/Vol] 1.7 mg/dL 1.5-2.2 [facility] Magnesium measurement (mass/ volume)Ordered By: Sushant Olmedo on 11-01-2024 Magnesium (Unsp spec) [Mass/Vol] 1.7 mg/dL 1.5-2.2 [facility] Phosphoruson 11-01-2024 Phosphate [Mass/Vol] 3.4 mg/dL Normal 2.7-4.5 [facility] Comment on above: Performed By: #### M 300.4600, M300.4500 #### [facility] Laboratory [address] [facility]. [place], [place], [address] Serum phosphorus measurement Ordered By: Sushant Olmedo on 11-01-2024 Phosphorus Level 3.4 mg/dL 2.7-4.5 [facility] Surgery Specimen Level Saul 11-01-2024 Surgery Specimen Level IV ---- Patient Age/Sex Location Account Attending Physician ---- ORION SORENSEN 73/F MS3 [id number] Dr. Sushant Olmedo MD ---- Specimen: [id number] Received: 11/02/24 Status: HERNAN Aragon Num: [id number] Spec Type: COLON BX Subm Dr: Charles Glze, DO HEADER OPERATION: Colonoscopy with hemostasis and biopsies PRE-OP DIAGNOSIS: GI bleed TISSUE SUBMITTED: A- Splenic flexure polyp biopsy ---- MICROSCOPIC DIAGNOSIS A. Colon, Splenic Flexure, Polyp, Biopsy: - Sessile serrated lesion. MICROSCOPIC DESCRIPTION Slides are reviewed. GROSS DESCRIPTION A. Received in formalin in a container labeled with the patient's name, date of , and splenic flexure polyp biopsy are 2 clark-pink fragments of mucosal tissue, each measuring 0.3 x 0.2 x 0.2 cm. Submitted in toto in A1. [facility] 11-02-2024 CPT:57568 ---- Patient Age/Sex Location Account Attending Physician ---- SORENSENORION WALTER MARIE 73/F MS3 [id number] Dr. Sushant Olmedo MD ---- Signed (signature on file) Dr. Katheryn Amador MD 11/08/24 0936 ---- Normal [facility] Comment on above: Performed By: #### P SUIV ####[facility] [id number] [facility] [place], [address] 12 Lead EKGon 10-31-2024 12 Lead EKG [facility] Cardiovascular Services [address] [place] [address] 12 Lead EKG 10/31/24 0437 MR#: [id number] Acct: [id number] Name: ORION SORENSEN Rep #: [id number] : 1950 73 From: Kevin Kerr MD Attending Dr: Dr. Sushant Olmedo MD Status: ADM IN Ordering Dr: Robe Heart MD Date: 10/31/24 Location: MS3 Sex: F C Admitted: 10/30/24 Test Reason : AM EKG Blood Pressure : */* mmHG Vent. Rate : 74 BPM Atrial Rate : 74 BPM P-R Int : 146 ms QRS Dur : 82 ms QT Int : 408 ms P-R-T Axes : 65 43 60 degrees QTcB Int : 452 ms Normal sinus rhythm Low voltage QRS Borderline ECG When compared with ECG of 07-Sep-2017 13:02, No significant change was found Confirmed by KEVIN KERR MD ([id number]), assignment editor LUCINDA ABREU ([id number]) on 10/31/2024 8:29:32 AM Referred By: Bruce Mcclain Confirmed By: KEVIN KERR MD 10/31/24828 Date Kevin Kerr MD CC: ROSENDO Goldstein; Dr. Robe Heart MD; Dr. Sushant Olmedo MD; Dr. Bruce Mcclain, DO Signed Normal [facility] Activated partial thrombopla stin time (aPTT) in platelet poor plasma by coagulation aOrdered By: Robe Heart on 10-31-2024 aPTT Coag (PPP) [Time] 28.9 s 24.1-36.2 [facility] Bedside Glucoseon 10-31-2024 FINGERSTICK GLU 186 mg/dL High [address] [place] [address] Comment on above: Result Comment: FITZ GEMENT OF PATIENT CARE PER NURSING PROTOCOL Performed By: #### L 100.0100, L500.2500 #### [facility] Laboratory [address] [place], [address] FINGERSTICK GLU 162 mg/dL High [address] [place] [address] Comment on above: Result Comment: FITZ GEMENT OF PATIENT CARE PER NURSING PROTOCOL Performed By: #### L 100.0100, L500.2500 #### [facility] Laboratory [address] [place], [address] FINGERSTICK GLU 180 mg/dL High [address] [place] [address] Comment on above: Result Comment: FITZ GEMENT OF PATIENT CARE PER NURSING PROTOCOL Performed By: #### L 100.0100, L500.2500 #### [facility] Laboratory [address] [place], [address] Bilirubin, totalOrdered By: Joe Chance on 10-31-2024 Bilirubin [Mass/Vol] 0.34 mg/dL 0.00-1.30 [facility] CBC W/Diff, Automatedon 04-0 Absolute Lymph 2.11 X10 3/uL Normal 0.83-4.51 [facility] Comment on above: Performed By: #### L 100.0100, L500.4050 #### [facility] Laboratory [address] [place], [address] Absolute Neut 2.3 X10 3/uL Normal 2.0-7.7 [facility] Comment on above: Performed By: #### L 100.0100, L500.4050 #### [facility] Laboratory [address] [place], [address] Basophils/100 WBC (Bld) 0.6 % Normal 0-1 [facility] Comment on above: Performed By: #### L 100.0100, L500.4050 #### [facility] Laboratory [address] [place], [address] Eosinophils/100 WBC (Bld) 3.4 % Normal 0-5 [facility] Comment on above: Performed By: #### L 100.0100, L500.4050 #### [facility] Laboratory [address] [place], [address] Erythrocyte distribution width (RBC) [Ratio] 15.4 % High 11.6-14.6 [facility] Comment on above: Performed By: #### L 100.0100, L500.4050 #### [facility] Laboratory [address] [place], [address] Hematocrit (Bld) [Volume fraction] 27.9 % Low 37-47 [facility] Comment on above: Performed By: #### L 100.0100, L500.4050 #### [facility] Laboratory [address] [place], [address] Hemoglobin (Bld) [Mass/Vol] 9.3 g/dL Low 12.0-15.0 [facility] Comment on above: Performed By: #### L 100.0100, L500.4050 #### [facility] Laboratory [address] [place], [address] IG% 0.400 Normal 0.0-0.9 [facility] Comment on above: Result Comment: IG% - Immature Granulocytes (promyelocytes, myelocytes and metamyelocytes) > 1% indicates that a LEFT SHIFT is Present. Performed By: #### L 100.0100, L500.4050 #### [facility] Laboratory [address] [place], [address] Lymphocytes/100 WBC (Bld) 41.9 % High 19-41 [facility] Comment on above: Performed By: #### L 100.0100, L500.4050 #### [facility] Laboratory [address] [place], [address] MCH (RBC) [Entitic mass] 29.0 pg Normal 27.0-32.0 [facility] Comment on above: Performed By: #### L 100.0100, L500.4050 #### [facility] Laboratory [address] [place], [address] MCHC (RBC) [Mass/Vol] 33.3 g/dL Normal 32-36 [facility] Comment on above: Performed By: #### L 100.0100, L500.4050 #### [facility] Laboratory [address] [place], [address] MCV (RBC) [Entitic vol] 86.9 fL Normal 81-99 [facility] Comment on above: Performed By: #### L 100.0100, L500.4050 #### [facility] Laboratory [address] [place], [address] Monocytes/100 WBC (Bld) 8.5 % Normal 0-10 [facility] Comment on above: Performed By: #### L 100.0100, L500.4050 #### [facility] Laboratory [address] [place], [address] Neutrophils/100 WBC (Bld) 45.2 % Low 47-70 [facility] Comment on above: Performed By: #### L 100.0100, L500.4050 #### [facility] Laboratory [address] [place], [address] Nucleated RBC (Bld) [#/Vol] 0 10*3/uL Normal 0-5 [facility] Comment on above: Performed By: #### L 100.0100, L500.4050 #### [facility] Laboratory [address] [place], [address] Platelet mean volume (Bld) [Entitic vol] 8.2 fL Normal 6.2-12.0 [facility] Comment on above: Performed By: #### L 100.0100, L500.4050 #### [facility] Laboratory [address] [place], [address] Platelets (Bld) [#/Vol] 250 10*3/uL Normal 150-450 [facility] Comment on above: Performed By: #### L 100.0100, L500.4050 #### [facility] Laboratory [address] [place], [address] RBC (Bld) [#/Vol] 3.21 10*6/uL Low 4.2-5.4 [facility] Comment on above: Performed By: #### L 100.0100, L500.4050 #### [facility] Laboratory [address] [place], [address] RDW SD 48.9 fl High 35.1-43.9 [facility] Comment on above: Performed By: #### L 100.0100, L500.4050 #### [facility] Laboratory [address] [place], [address] WBC (Bld) [#/Vol] 5.0 10*3/uL Normal 4.4-11.0 [facility] Comment on above: Performed By: #### L 100.0100, L500.4050 #### [facility] Laboratory [address] [place], [address] Comprehensive Metabolic Prof ilon 10-31-2024 Albumin [Mass/Vol] 3.6 g/dL Normal 3.4-4.8 [facility] Comment on above: Performed By: #### L 100.0100, L500.4050 #### [facility] Laboratory [address] [place], [address] Albumin/Globulin [Mass ratio] 1.1 {ratio} Normal 0.9-2.4 [facility] Comment on above: Performed By: #### L 100.0100, L500.4050 #### [facility] Laboratory [address] [place], [address] ALK PHOS 66 U/L Normal 35-104 [facility] Comment on above: Performed By: #### L 100.0100, L500.4050 #### [facility] Laboratory [address] [place], [address] ALT [Catalytic activity/Vol] 27 U/L Normal <=34 [facility] Comment on above: Performed By: #### L 100.0100, L500.4050 #### [facility] Laboratory [address] [place], [address] AST [Catalytic activity/Vol] 33 U/L High <=31 [facility] Comment on above: Performed By: #### L 100.0100, L500.4050 #### [facility] Laboratory [address] [place], [address] Bilirubin [Mass/Vol] 0.34 mg/dL Normal 0.00-1.30 [facility] Comment on above: Performed By: #### L 100.0100, L500.4050 #### [facility] Laboratory [address] [place], [address] BUN/CRE 12.3 RATIO Normal 10-20 [facility] Comment on above: Performed By: #### L 100.0100, L500.4050 #### [facility] Laboratory [address] [place], [address] Calcium [Mass/Vol] 9.2 mg/dL Normal 7.6-11.0 [facility] Comment on above: Performed By: #### L 100.0100, L500.4050 #### [facility] Laboratory [address] [place], [address] Chloride [Moles/Vol] 104 mmol/L Normal 98-108 [facility] Comment on above: Performed By: #### L 100.0100, L500.4050 #### [facility] Laboratory [address] [place], [address] CO2 [Moles/Vol] 24.0 mmol/L Normal 21.0-32.0 [facility] Comment on above: Performed By: #### L 100.0100, L500.4050 #### [facility] Laboratory [address] [place], [address] Creatinine [Mass/Vol] 0.88 mg/dL Normal 0.70-1.20 [facility] Comment on above: Performed By: #### L 100.0100, L500.4050 #### [facility] Laboratory [address] [place], [address] ECRCL 53.72 ml/min Normal 50-250 [facility] Comment on above: Performed By: #### L 100.0100, L500.4050 #### [facility] Laboratory [address] [place], [address] GAP 11 Normal 5-15 [facility] Comment on above: Performed By: #### L 100.0100, L500.4050 #### [facility] Laboratory [address] [place], [address] GFR/1.73 sq M.predicted among non-blacks MDRD (S/P/Bld) [Vol rate/Area] 68 mL/min/{1.73_m2} Normal >60 [facility] Comment on above: Result Comment: mL/m in/1.73m2 CKD-EPI Creatinine Equation (2020) Performed By: #### L 100.0100, L500.4050 #### [facility] Laboratory [address] [place], [address] Globulin (S) [Mass/Vol] 3.2 g/dL Normal 2.2-4.2 [facility] Comment on above: Performed By: #### L 100.0100, L500.4050 #### [facility] Laboratory [address] [place], [address] Glucose [Mass/Vol] 125 mg/dL High 70-99 [facility] Comment on above: Performed By: #### L 100.0100, L500.4050 #### [facility] Laboratory [address] [place], [address] Potassium [Moles/Vol] 4.3 mmol/L Normal 3.3-5.1 [facility] Comment on above: Performed By: #### L 100.0100, L500.4050 #### [facility] Laboratory [address] [place], [address] Sodium [Moles/Vol] 139 mmol/L Normal 133-145 [facility] Comment on above: Performed By: #### L 100.0100, L500.4050 #### [facility] Laboratory [address] [place], [address] T PROT 6.8 g/dL Normal 5.9-8.4 [facility] Comment on above: Performed By: #### L 100.0100, L500.4050 #### [facility] Laboratory [address] [place], [address] Urea nitrogen [Mass/Vol] 11 mg/dL Normal 4-19 [facility] Comment on above: Performed By: #### L 100.0100, L500.4050 #### [facility] Laboratory [address] [place], [address] Electrocardiogram reportOrde red By: Kevin Kerr on 10-31-2024 EKG study [facility] Cardiovascular Services [address] [place] [address] 12 Lead EKG 10/31/24 0437 MR#: [id number] Acct: [id number] Name: ORION SORENSEN Rep #:[id number] : 1950 73 From: Kevin Kerr MD Attending Dr: Dr. Sushant Olmedo MD Status: ADM IN Ordering Dr: Robe Heart MD Date: 08/26 Location: [facility] Sex: F C Admitted: 10/30/24 Test Reason : AM EKG Blood Pressure : */* mmHG Vent. Rate : 74 BPM Atrial Rate : 74 BPM P-R Int : 146 ms QRS Dur : 82 ms QT Int : 408 ms P-R-T Axes : 65 43 60 degrees QTcB Int : 452 ms Normal sinus rhythm Low voltage QRS Borderline ECG When compared with ECG of 07-Sep-2017 13:02, No significant change was found Confirmed by KEVIN KERR MD ([id number]), assignment editor LUCINDA ABREU ([id number]) on 10/31/2024 8:29:32 AM Referred By: Bruce Mcclain Confirmed By: KEVIN KERR MD 10/31/24 0829 Date _ Kevin Kerr MD CC: ROSENDO Goldstein; Dr. Robe Heart MD; Dr. Sushant Olmedo MD; Dr. Bruce Mcclain, DO ~ Signed [facility] Work Phone: HH, Hemoglobin AND Hematocri ton 10-31-2024 Hematocrit (Bld) [Volume fraction] 27.6 % Low 37-47 [facility] Comment on above: Order Comment: EXTRA BB TUBE DRAWN Performed By: #### L 100.0600 #### [facility] Laboratory [address] [place], [address] Hemoglobin (Bld) [Mass/Vol] 9.3 g/dL Low 12.0-15.0 [facility] Comment on above: Order Comment: EXTRA BB TUBE DRAWN Performed By: #### L 100.0600 #### [facility] Laboratory [address] [place], [address] Hematocrit (Bld) [Volume fraction] 26.6 % Low 37-47 [facility] Comment on above: Performed By: #### M 300.4600, M300.4500 #### [facility] Laboratory [address] [place], [address] Hemoglobin (Bld) [Mass/Vol] 8.9 g/dL Low 12.0-15.0 [facility] Comment on above: Performed By: #### M 300.4600, M300.4500 #### [facility] Laboratory [address] [place], [address] Hemoglobin A1con 10-31-2024 HbA1c (Bld) [Mass fraction] 7.5 % Normal <=5.6 [facility] Comment on above: Performed By: #### L 300.3900, L501.9985, L300.4310 ####[facility] [address] [place], [address] Hemoglobin A1c percentageOrd ered By: Robe Heart on 10-31-2024 HbA1c (Bld) [Mass fraction] 7.5 % >5.7 [facility] International normalized rat io (INR) calculationOrdered By: Robe Heart on 10-31-2024 INR Coag (Bld) [Relative time] 1.2 {INR} [facility] Laboratory - Chemistry and C hemistry - challengeOrdered By: Joe Chance on 10-31-2024 AST [Catalytic activity/Vol] 33 U/L High <32 [facility] Partial Thromboplast Timeon 10-31-2024 aPTT Coag (Bld) [Time] 28.9 s Normal 24.1-36.2 [facility] Comment on above: Performed By: #### L 300.3900, L501.9985, L300.4310 ####[facility] [address] [place], [address] Prothrombin Time w/INRon INR Coag (PPP) [Relative time] 1.2 {INR} Normal [facility] Comment on above: Performed By: #### L 300.3900, L501.9985, L300.4310 ####[facility] [address] [place], [address] PT Coag (PPP) [Time] 15.8 s High 11.7-14.9 [facility] Comment on above: Performed By: #### L 300.3900, L501.9985, L300.4310 ####[facility] [address] [place], [address] Prothrombin timeOrdered By: Robe Heart on 10-31-2024 PT Coag (PPP) [Time] 15.8 s High 11.7-14.9 [facility] Serum globulin measurementOr dered By: Joe Chance on 10-31-2024 Globulin (S) [Mass/Vol] 3.2 g/dL 2.2-4.2 [facility] Serum or plasma alanine raymundo otransferase (ALT) measurementOrdered By: Joe Chance on 10-31-2024 ALT [Catalytic activity/Vol] 27 U/L <35 [facility] Serum or plasma albumin carla urement (mass/volume)Ordered By: Joe Chance on 10-31-2024 Albumin [Mass/Vol] 3.6 g/dL 3.4-4.8 [facility] Serum or plasma albumin/glob ulin mass ratioOrdered By: Joe Chance on 10-31-2024 Albumin/Globulin [Mass ratio] 1.1 {ratio} 0.9-2.4 [facility] Serum or plasma alkaline irina sphatase measurementOrdered By: Joe Chance on 10-31-2024 ALP [Catalytic activity/Vol] 66 U/L 35-104 [facility] Total proteinOrdered By: Aziza Chance on 10-31-2024 Protein [Mass/Vol] 6.8 g/dL 5.9-8.4 [facility] aPTT Coag (PPP) [Time]Ordere d By: Robe Heart on 10-31-2024 aPTT Coag (Bld) [Time] 28.9 s 24.1-36.2 [facility] Abdomen/Pelvis W IV Cont ONL Yon 10-30-2024 Abdomen/Pelvis W IV Cont ONLY [facility] Imaging Services [address] [place] [address] Abdomen/Pelvis W IV Cont ONLY MR#: [id number] Acct: [id number] Name: ORION SORENSEN Rep #: [id number] : 1950 F 73 From: Julien Mason DO PCP: ROSENDO Perea Status: REG ER Study: Abdomen/Pelvis W IV Cont ONLY Date of Exam: Exam# [id number] Ordering Dr: Bruce Mcclain DO PROCEDURE: ABDOMEN/PELVIS W IV CONT ONLY 10/30/2024 REASON FOR EXAM: ABDOMINAL PAIN, RECTAL BLEEDING TECHNIQUE: Abdomen and pelvis CT with intravenous contrast. Coronal and Sagittal reconstruction series were provided. PATIENT PREPARATION: Per protocol ORAL CONTRAST TYPE: None. CONTRAST: Isovue 370 VOLUME: 100mL gauge IV One or more dose reduction techniques were used (e.g., Automated exposure control, adjustment of the mA and/or kV according to patient size, use of iterative reconstruction technique. RADIATION DOSE SUMMARY: CTDlvol: 27 mGy DLP: 988 mGycm COMPARISON: None FINDINGS: Lung bases: Unremarkable Liver: Normal size. No mass. Gallbladder: Unremarkable Spleen: Small punctate calcification. Pancreas: Normal size without evidence of mass surrounding inflammation or ductal dilation. Adrenals: Thickening of the bilateral adrenal glands likely related to hyperplasia. Kidneys: Tiny parenchymal low attenuating lesion of the right kidney, too small to characterize. No evidence of nephrolithiasis or hydronephrosis. Bladder: Unremarkable Reproductive Organs: Normal uterine size and contour. Ovaries are unremarkable. Bowel: Evaluation of the bowel loops are limited due to lack of oral contrast. The stomach is grossly unremarkable. No inflammatory changes of the small bowel. Surgical sutures along the distal rectum consistent with prior resection. Mild stool burden within the large bowel. No inflammatory changes. There is a small umbilical hernia containing a focal loop of transverse colon, no distention, wall thickening or adjacent stranding to suggest obstruction. Appendix: Unremarkable Lymph nodes: Unremarkable. Vasculature: Mild diffuse atherosclerotic calcifications are noted. Peritoneum / Retroperitoneum: No free air or free fluid is demonstrated. Bones: Degenerative changes of the lumbar spine CT/Abdomen/Pelvis W IV Cont ONLY IMPRESSION: Mild stool burden within the large bowel. No inflammatory changes of the bowel loops. Umbilical hernia containing a focal loop of transverse colon, no inflammatory changes to suggest strangulation. [facility]: ROSENDO Goldstein; Dr. Bruce Mcclain DO Cold Roll Catcher: Signed Normal [facility] Absolute neutrophil countOrd ered By: Bruce Mcclain on 10-30-2024 Neutrophils (Bld) [#/Vol] 3.1 10*3/uL 2.0-7.7 [facility] Anion gap in Serum or Plasma Ordered By: Bruce Mcclain on 10-30-2024 Anion gap [Moles/Vol] 14 mmol/L - [facility] BUN/creatinine ratioOrdered By: Bruce Mcclain on 10-30-2024 Urea nitrogen/Creatinine [Mass ratio] 15.7 mg/mg 10- [facility] Basic Metabolic Profile (BMP )on 10-30-2024 BUN/CRE 15.7 RATIO Normal 10-20 [facility] Comment on above: Performed By: #### M 300.4600, M300.4500 #### [facility] Laboratory [address] [place], [address] Calcium [Mass/Vol] 9.3 mg/dL Normal 7.6-11.0 [facility] Comment on above: Performed By: #### M 300.4600, M300.4500 #### [facility] [address] [place], [address] Chloride [Moles/Vol] 99 mmol/L Normal 98-108 [facility] Comment on above: Performed By: #### M 300.4600, M300.4500 #### [facility] [address] [place], [address] CO2 [Moles/Vol] 21.5 mmol/L Normal 21.0-32.0 [facility] Comment on above: Performed By: #### M 300.4600, M300.4500 #### [facility] [address] [place], [address] Creatinine [Mass/Vol] 0.93 mg/dL Normal 0.70-1.20 [facility] Comment on above: Performed By: #### M 300.4600, M300.4500 #### [facility] [address] [place], [address] ECRCL 52.11 ml/min Normal 50-250 [facility] Comment on above: Performed By: #### M 300.4600, M300.4500 #### [facility] [address] [place], [address] GAP 14 Normal 5-15 [facility] Comment on above: Performed By: #### M 300.4600, M300.4500 #### [facility] Laboratory [address] [place], [address] GFR/1.73 sq M.predicted among non-blacks MDRD (S/P/Bld) [Vol rate/Area] 64 mL/min/{1.73_m2} Normal >60 [facility] Comment on above: Result Comment: mL/m in/1.73m2 CKD-EPI Creatinine Equation (2020) Performed By: #### M 300.4600, M300.4500 #### [facility] [address] [place], [address] Glucose [Mass/Vol] 193 mg/dL High 70-99 [facility] Comment on above: Performed By: #### M 300.4600, M300.4500 #### [facility] [address] [place], [address] Potassium [Moles/Vol] 4.0 mmol/L Normal 3.3-5.1 [facility] Comment on above: Performed By: #### M 300.4600, M300.4500 #### [facility] [address] [place], [address] Sodium [Moles/Vol] 135 mmol/L Normal 133-145 [facility] Comment on above: Performed By: #### M 300.4600, M300.4500 #### [facility] [address] [place], [address] Urea nitrogen [Mass/Vol] 15 mg/dL Normal 4-19 [facility] Comment on above: Performed By: #### M 300.4600, M300.4500 #### [facility] [address] [place], [address] Basophil percentageOrdered B y: Remus Johny on 10-30-2024 Basophils/100 WBC (Bld) 0.9 % 0-1 [facility] Bilirubin Test strip Ql (U)O rdered By: Remus Ungalphonso on 10-30-2024 Bilirubin Ql (U) Negative Negative [facility] CBC W/Diff, Automatedon - Absolute Lymph 2.09 X10 3/uL Normal 0.83-4.51 [facility] Comment on above: Performed By: #### M 300.4600, M300.4500 #### [facility] [address] [place], [address] Absolute Neut 3.1 X10 3/uL Normal 2.0-7.7 [facility] Comment on above: Performed By: #### M 300.4600, M300.4500 #### [facility] [address] [place], [address] Basophils/100 WBC (Bld) 0.9 % Normal 0-1 [facility] Comment on above: Performed By: #### M 300.4600, M300.4500 #### [facility] [address] [place], [address] Eosinophils/100 WBC (Bld) 2.2 % Normal 0-5 [facility] Comment on above: Performed By: #### M 300.4600, M300.4500 #### [facility] [address] [place], [address] Erythrocyte distribution width (RBC) [Ratio] 15.3 % High 11.6-14.6 [facility] Comment on above: Performed By: #### M 300.4600, M300.4500 #### [facility] [address] [place], [address] Hematocrit (Bld) [Volume fraction] 28.6 % Low 37-47 [facility] Comment on above: Performed By: #### M 300.4600, M300.4500 #### [facility] [address] [place], [address] Hemoglobin (Bld) [Mass/Vol] 9.7 g/dL Low 12.0-15.0 [facility] Comment on above: Performed By: #### M 300.4600, M300.4500 #### [facility] [address] [place], [address] IG% 0.500 Normal 0.0-0.9 [facility] Comment on above: Result Comment: IG% - Immature Granulocytes (promyelocytes, myelocytes and metamyelocytes) > 1% indicates that a LEFT SHIFT is Present. Performed By: #### M 300.4600, M300.4500 #### [facility] [address] [place], [address] Lymphocytes/100 WBC (Bld) 35.5 % Normal 19-41 [facility] Comment on above: Performed By: #### M 300.4600, M300.4500 #### [facility] [address] [place], [address] MCH (RBC) [Entitic mass] 29.7 pg Normal 27.0-32.0 [facility] Comment on above: Performed By: #### M 300.4600, M300.4500 #### [facility] [address] [place], [address] MCHC (RBC) [Mass/Vol] 33.9 g/dL Normal 32-36 [facility] Comment on above: Performed By: #### M 300.4600, M300.4500 #### [facility] [address] [place], [address] MCV (RBC) [Entitic vol] 87.5 fL Normal 81-99 [facility] Comment on above: Performed By: #### M 300.4600, M300.4500 #### [facility] [address] [place], [address] Monocytes/100 WBC (Bld) 8.3 % Normal 0-10 [facility] Comment on above: Performed By: #### M 300.4600, M300.4500 #### [facility] [address] [place], [address] Neutrophils/100 WBC (Bld) 52.6 % Normal 47-70 [facility] Comment on above: Performed By: #### M 300.4600, M300.4500 #### [facility] [address] [place], [address] Nucleated RBC (Bld) [#/Vol] 0 10*3/uL Normal 0-5 [facility] Comment on above: Performed By: #### M 300.4600, M300.4500 #### [facility] [address] [place], [address] Platelet mean volume (Bld) [Entitic vol] 8.1 fL Normal 6.2-12.0 [facility] Comment on above: Performed By: #### M 300.4600, M300.4500 #### [facility] [address] [place], [address] Platelets (Bld) [#/Vol] 276 10*3/uL Normal 150-450 [facility] Comment on above: Performed By: #### M 300.4600, M300.4500 #### [facility] Laboratory [address] [place], [address] RBC (Bld) [#/Vol] 3.27 10*6/uL Low 4.2-5.4 [facility] Comment on above: Performed By: #### M 300.4600, M300.4500 #### [facility] [address] [place], [address] RDW SD 48.5 fl High 35.1-43.9 [facility] Comment on above: Performed By: #### M 300.4600, M300.4500 #### [facility] [address] [place], [address] WBC (Bld) [#/Vol] 5.9 10*3/uL Normal 4.4-11.0 [facility] Comment on above: Performed By: #### M 300.4746, M300.4508 #### [facility] [address] [place], [address] Carbon dioxide, total [Moles /volume] in Central venous bloodOrdered By: Bruce Mcclain on 10-30-2024 CO2 [Moles/Vol] 21.5 mmol/L 21.0-32.0 [facility] Chloride assayOrdered By: Chikis Mcclain on 10-30-2024 Chloride [Moles/Vol] 99 mmol/L 98-108 [facility] Emergency Department Summary on 10-30-2024 Emergency Department Summary [facility] Medical Records Department [address] [place] [address] Emergency Department Summary 10/30/24 MR#: [id number] Acct: [id number] Name: ORION SORENSEN Rep #: [id number] : 1950 73 From: Bruce Mcclain DO PCP: Terrie Goldstein NP-C Status:ADM IN Location: [address] HPI HPI - GI History of Present Illness Chief Complaint: GI Bleed Detail of Chief Complaint: Rectal bleeding Informant: patient and family Narrative Narrative: Patient presents to the emergency department complaint of rectal bleeding for about a month off-and-on. She has history of hemorrhoids. Patient also started with some abdominal pain yesterday in the left lower abdomen. She does have history of prior diverticulitis. She has history of prior colon cancer with partial bowel resection. Patient denies fevers or chills or sweats. She denies vomiting. She is not anticoagulated [facility] Home Medications ???Medication ???Instructions ???Recorded ???Last Taken ???Type alendronate 70 mg tablet (Fosamax) 70 mg PO QWEEK 09/06/17 Unknown History aspirin 81 mg tablet,delayed 81 mg PO DAILY HEART 09/06/17 Unkn own History release (Aspir-Low) calcium 600 mg (as 1 ea PO BID SUPPLEMENT 09/06/17 Un known History carbonate)-vitamin D3 20 mcg (800 unit) tablet (Caltrate with Vitamin D3) hydrocodone-acetaminop hen 5-325mg 1 tab PO Q6H PRN PRN Pain 8 Unknown History 5mg-325mg insulin aspart U-100 100 unit/mL 15 units subcut TIDCM DIABETES 12/17 Unknown History (3 mL) subcutaneous pen (Novolog FlexPen U-100 Insulin aspart) insulin glargine 100 unit/mL (3 30 units subcut QHS DIABETES 09/06 Unknown History mL) subcutaneous pen (Lantus Solostar U-100 Insulin) naproxen sodium 220 mg tablet 220 mg PO Q8H PRN PRN Pain 8 Unknown History (Aleve) omeprazole 40 mg capsule,delayed 40 mg PO DAILY REFLUX 09/06/1707/19 06:00 History release simvastatin 10 mg tablet (Zocor) 10 mg PO QHS CHOLESTEROL 09/06/17 Unknown History solifenacin 10 mg tablet (Vesicare) 10 mg PO DAILY BLADDER 09/06/17 Unknown History tizanidine 2 mg tablet 2 mg PO Q8H PRN Pain 09/06/17 Unkn own History valsartan 40 mg tablet (Diovan) 40 mg PO DAILY BP 09/06/17 8 06:00 History cephalexin 500 mg capsule 500 mg PO Q12 #20 caps 09/14/17 Un known Rx hydrocodone-acetaminop hen 5-325mg 1 ea PO Q6H PRN PRN Mod-Severe Unknown Rx 5mg-325mg Pain (4-10/10) 4 days #15 tabs Allergy/AdvReac Type Severity Reaction Status Date / Time celecoxib (From Celebrex) Allergy Hives Verified 10/30/24 16:49 ramipril Allergy Hives Verified 10/30/24 16:49 rofecoxib (From Vioxx) Allergy Hives Verified 10/30/24 16:49 letrozole (From Femara) AdvReac Pain in Verified 10/30/24 16:49 joints Social History Smoking Status: Former smoker ROS ROS ED Review of Systems ROS Unobtainable: other Constitutional Constitutional ED: Reports lethargy; Denies chills, fever(s), sweats or weight loss Eyes Eyes: Denies blurry vision, change in vision or diplopia ENT ENT ED: Denies rhinorrhea or sore throat Cardiovascular Cardiovascular: Denies chest pain, orthopnea or racing heartbeat Respiratory/Chest Respiratory/Chest: Denies cough, dyspnea, dyspnea on exertion, orthopnea or sputum Gastrointestinal Gastrointestinal: Reports abdominal pain and other Details: Rectal bleeding ; Denies diarrhea, nausea or vomiting Genitourinary Genitourinary ED: Denies dysuria, hematuria or urinary frequency Musculoskeletal Musculoskeletal: Denies arthralgias, back pain, myalgias or neck pain Integumentary Denies abscess, Abrasions or rash Neurologic Neurologic: Denies headache(s) or weakness Psychiatric Psychiatric: Denies anxiety, depression or suicidal thoughts Endocrine Endocrinology: Denies polydipsia, polyphagia or polyuria Hematologic/Lymphatic Hematologic/Lymphatic: Denies easy bleeding, easy bruising or lymphadenopathy Allergic/Immunologic Allergic/Immunologic ED: Denies mouth swelling, tongue swelling or urticaria EXAM Physical Exam Const Vital Signs: 10/30/24 16:49 10/30/24 17:49 10/30/24 20:00 Temperature 96.3 F L Temperature Source Temporal Pulse Rate 84 Pulse Rate [Lying] 72 Pulse Rate [Sitting (for 1 minute prior to obtaining)] 73 Pulse Rate [Standing (for 1 minute prior to obtaining)] 74 Respiratory Rate 15 Blood Pressure 151/103 H 140/70 H Blood Pressure [Lying] 175/74 H Blood Pressure [Sitting (for 1 minute prior to obtaining)] 169/71 H Blood Pressure [Standing (for 1 minute prior to obtaining)] 150/76 H Blood Pressure Mean 119 93 Blood Pressure Mean [Lying] 107 Blood Pressure Mean [Sitting (for 1 minute prior to obtaining)] 103 Blood Pressure Mean [Standin (more content not included)... Normal [facility] Eosinophil percentageOrdered By: Bruce Mcclain on 10-30-2024 Eosinophils/100 WBC (Bld) 2.2 % 0-5 [facility] Epithelial cells.squamous LM Ql (Urine sed)Ordered By: Bruce Mcclain on 10-30-2024 Epithelial cells.squamous LM.HPF (Urine sed) [#/Area] 0 /[HPF] 5-10 [facility] Erythrocyte distribution wid th ratioOrdered By: Bruce Mcclain on 10-30-2024 Erythrocyte distribution width (RBC) [Ratio] 15.3 % High 11.6-14.6 [facility] Erythrocyte distribution wid th standard deviationOrdered By: Bruce Mcclain on 10-30-2024 Erythrocyte distribution width (RBC) [Entitic vol] 48.5 fL High 35.1-43.9 [facility] Estimation of creatinine isamar aranceOrdered By: Bruce Mcclain on 10-30-2024 Estimated Creatinine Clearance Calc 52.11 ml/min 50-250 [facility] GFR/1.73 sq M.predicted erika g non-blacks MDRD (S/P/Bld) [Vol rate/Area]Ordered By: Bruce Mcclain on 10-30-2024 Estimated GFR (MDRD) Non-Af Amer 64 >60 [facility] Comment on above: mL/min/1.73m2 CKD-EP I Creatinine Equation (2020) Glucose Ql (U)Ordered By: Chikis Mcclain on 10-30-2024 Urine Glucose (UA) Normal mg/dl Normal [facility] HH, Hemoglobin AND Hematocri ton 10-30-2024 Hematocrit (Bld) [Volume fraction] 27.7 % Low 37-47 [facility] Comment on above: Performed By: #### L 100.0600 ####[facility] [id number] [facility]. [place], [place], [phone] Hemoglobin (Bld) [Mass/Vol] 9.2 g/dL Low 12.0-15.0 [facility] Comment on above: Performed By: #### L 100.0600 ####[facility] [id number] [facility]. [place], [place], [phone] Hematocrit Auto (Bld) [Volum e fraction]Ordered By: Bruce Mcclain on 10-30-2024 Hematocrit (Bld) [Volume fraction] 28.6 % Low 37-47 [facility] Hemoglobin measurementOrdere d By: Bruce Mcclain on 10-30-2024 Hemoglobin (Bld) [Mass/Vol] 9.7 g/dL Low 12.0-15.0 [facility] Immature granulocytes/100 WB C Auto (Bld)Ordered By: Bruce Mcclain on 10-30-2024 Immature granulocytes/100 WBC (Bld) 0.500 % 0.0-0.9 [facility] Comment on above: IG% - Immature Granu locytes (promyelocytes, myelocytes and metamyelocytes) > 1% indicates that a LEFT SHIFT is Present. Ketones Test strip Ql (U)Ord ered By: Bruce Mcclain on 10-30-2024 Ketones Ql (U) Negative Negative [facility] Lactic Acidon 10-30-2024 Lactate [Moles/Vol] 1.5 mmol/L Normal 0.0-2.0 [facility] Comment on above: Order Comment: Y Performed By: #### M 300.4600, M300.4500 #### [facility] Laboratory [facility] [place], [address] Lactic acid measurementOrder ed By: Bruce Mcclain on 10-30-2024 Lactate [Moles/Vol] 1.5 mmol/L 0.0-2.0 [facility] Lower GI hemoglobin IA Ql (S tl)Ordered By: Bruce Mcclain on 10-30-2024 Stool Occult Blood (MONY) Positive Abnormal [facility] Lymphocytes Auto (Unsp spec) [#/Vol]Ordered By: Bruce Mcclain on 10-30-2024 Lymphocytes (Bld) [#/Vol] 2.09 10*3/uL 0.83-4.51 [facility] Lymphocytes/100 WBC Auto (Un sp spec)Ordered By: Bruce Mcclain on 10-30-2024 Lymphocytes/100 WBC (Bld) 35.5 % 19-41 [facility] MCV (mean corpuscular volume ) determinationOrdered By: Bruce Mcclain on 10-30-2024 MCV (RBC) [Entitic vol] 87.5 fL 81-99 [facility] Mean corpuscular hemoglobin (MCH) determinationOrdered By: Bruce Mcclain on 10-30-2024 MCH (RBC) [Entitic mass] 29.7 pg 27.0-32.0 [facility] Mean corpuscular hemoglobin concentration (MCHC) determinationOrdered By: Bruce Mcclain on 10-30-2024 MCHC (RBC) [Mass/Vol] 33.9 g/dL 32-36 [facility] Mean platelet volume determi nationOrdered By: Bruce Mcclain on 10-30-2024 Platelet mean volume (Bld) [Entitic vol] 8.1 fL 6.2-12.0 [facility] Microscopic analysis of urin e for red blood cells (RBC)Ordered By: Bruce Mcclain on 10-30-2024 Microscopic analysis of urine for red blood cells (RBC) 0-5 SEEN /hpf 0-5 [facility] Urine RBC 0-5 SEEN /hpf 0-5 [facility] Monocyte percentageOrdered B y: Bruce Mcclain on 10-30-2024 Monocytes/100 WBC (Bld) 8.3 % 0-10 [facility] Mucus LM Ql (Urine sed)Order ed By: Bruce Mcclain on 10-30-2024 Mucus Ql (Urine sed) 0 SEEN /hpf [facility] Neutrophil percentageOrdered By: Bruce Mcclain on 10-30-2024 Neutrophils/100 WBC (Bld) 52.6 % 47-70 [facility] Nitrite Test strip Ql (U)Ord ered By: Bruce Mcclain on 10-30-2024 Nitrite Ql (U) Negative Negative [facility] Nucleated red blood cell per centageOrdered By: Bruce Mcclain on 10-30-2024 Nucleated RBC/100 WBC (Bld) [Ratio] 0 % 0-5 [facility] Platelet countOrdered By: Chikis cMclain on 10-30-2024 Platelets (Bld) [#/Vol] 276 10*3/uL 150-450 [facility] Potassium (Unsp spec) [Mass/ Vol]Ordered By: Bruce Mcclain on 10-30-2024 Potassium [Moles/Vol] 4.0 mmol/L 3.3-5.1 [facility] Protein Test strip Ql (U)Ord ered By: Bruce Mcclain on 10-30-2024 Protein Ql (U) 30 mg/dl High Negative [facility] RBC Auto (Bld) [#/Vol]Ordere d By: Bruce Mcclain on 10-30-2024 RBC (Bld) [#/Vol] 3.27 10*6/uL Low 4.2-5.4 [facility] Serum creatinine measurement (mass/volume)Ordered By: Bruce Mcclain on 10-30-2024 Creatinine [Mass/Vol] 0.93 mg/dL 0.70-1.20 [facility] Serum glucose measurement (m ass/volume)Ordered By: Bruce Mcclain on 10-30-2024 Glucose [Mass/Vol] 193 mg/dL High 70-99 [facility] Serum or plasma calcium carla urement (mass/volume)Ordered By: Bruce Mcclain on 10-30-2024 Calcium [Mass/Vol] 9.3 mg/dL 7.6-11.0 [facility] Serum or plasma urea nitroge n measurement (mass/volume)Ordered By: Bruce Mcclain on 10-30-2024 Urea nitrogen [Mass/Vol] 15 mg/dL 4-19 [facility] Sodium levelOrdered By: Rajiv Mcclain on 10-30-2024 Sodium [Moles/Vol] 135 mmol/L 133-145 [facility] Squamous epithelial cells de tection in urine sediment by light microscopyOrdered By: Bruce Mcclain on 10-30-2024 Epithelial cells.squamous LM Ql (Urine sed) 0-5 SEEN /hpf 5-10 [facility] Stool Occult Blood iFOBon STOB Positive Normal [facility] Comment on above: Performed By: #### M 100.7900 ####[facility] [id number] [place], [address] Stool gastrointestinal hemog lobin detection by immunologic methodOrdered By: Bruce Mcclain on 10-30-2024 Lower GI hemoglobin IA Ql (Stl) Positive Abnormal [facility] Urinalysis, Completeon 10-30 EPI,SQUAMOUS 0-5 SEEN Normal 5-10 [facility] Comment on above: Order Comment: CLEAN CATCH Performed By: #### L 100.0100, L500.2500 #### [facility] Laboratory [address] [place], [address] RBC 0-5 SEEN Normal 0-5 [facility] Comment on above: Order Comment: CLEAN CATCH Performed By: #### L 100.0100, L500.2500 #### [facility] Laboratory [address] [place], [address] WBC 0-5 SEEN Normal 0-5 [facility] Comment on above: Order Comment: CLEAN CATCH Performed By: #### L 100.0100, L500.2500 #### [facility] Laboratory [address] [place], [address] BACTERIA 0 SEEN Normal None Seen [facility] Comment on above: Order Comment: CLEAN CATCH Performed By: #### L 100.0100, L500.2500 #### [facility] Laboratory [address] [place], [address] Mucus Ql (Urine sed) 0 SEEN Normal [facility] Comment on above: Order Comment: CLEAN CATCH Performed By: #### L 100.0100, L500.2500 #### [facility] [address] [place], [address] Urine blood detectionOrdered By: Bruce Mcclain on 10-30-2024 Urine Occult Blood 25 /ul High Negative [facility] Urine clarityOrdered By: Karis Mcclain on 10-30-2024 Clarity (U) Clear Clear [facility] Urine color determinationOrd ered By: Bruce Mcclain on 10-30-2024 Color (U) Straw Yellow [facility] Urine glucose detectionOrder ed By: Bruce Mcclain on 10-30-2024 Glucose Ql (U) Normal mg/dl Normal [facility] Urine leukocyte esterase det ection by dipstickOrdered By: Bruce Mcclain on 10-30-2024 Leukocyte esterase Test strip Ql (U) 25 /ul High Negative [facility] Urine pHOrdered By: Bruce Melton gur on 10-30-2024 pH (U) 6.5 [pH] 5.0 - 8.0 [facility] Urine sediment bacteria coun t by microscopy (number/high power field)Ordered By: Bruce Mcclain on 10-30-2024 Bacteria LM.HPF (Urine sed) [#/Area] 0 /[HPF] None Seen [facility] Urine specific gravity measu rementOrdered By: Bruce Mcclain on 10-30-2024 Specific gravity (U) [Rel density] 1.010 1.002-1.030 [facility] Urine urobilinogen measureme ntOrdered By: Remus Ungur on 10-30-2024 Urobilinogen Ql (U) Normal mg/dl Normal [facility] Urobilinogen Ql (U)Ordered B y: Remus Ungur on 10-30-2024 Urine Urobilinogen Normal mg/dl Normal [facility] White blood cell (WBC) count Ordered By: Remus Ungur on 10-30-2024 WBC (Bld) [#/Vol] 5.9 10*3/uL 4.4-11.0 [facility] White blood cell countOrdere d By: Remus Ungur on 10-30-2024 Urine WBC 0-5 SEEN /hpf 0-5 [facility] White blood cell count 0-5 SEEN /hpf 0-5 [facility] .Auto Diffon 10-25-2024 Basophil, Absolute 0.0 10 3/mcL Normal 0.0-0.2 [facility] Comment on above: Performed By: #### A DIFF, ANEU, MDW, CBC, GFR, TROPHS, BMP, MG #### [address] [address] Basophils/100 WBC (Bld) 0.2 % Normal 0.0-2.5 [facility] Comment on above: Performed By: #### A DIFF, ANEU, MDW, CBC, GFR, TROPHS, BMP, MG #### [address] [address] Eosinophil, Absolute 0.1 10 3/mcL Normal 0.0-0.7 [facility] Comment on above: Performed By: #### A DIFF, ANEU, MDW, CBC, GFR, TROPHS, BMP, MG #### [address] [address] Eosinophils/100 WBC (Bld) 1.4 % Normal 0.0-7.0 [facility] Comment on above: Performed By: #### A DIFF, ANEU, MDW, CBC, GFR, TROPHS, BMP, MG #### [address] [address] Lymphocyte, Absolute 1.1 10 3/mcL Normal 0.9-4.3 [facility] Comment on above: Performed By: #### A DIFF, ANEU, MDW, CBC, GFR, TROPHS, BMP, MG #### [address] [address] Lymphocytes/100 WBC (Bld) 14.0 % Low 20.0-40.0 [facility] Comment on above: Performed By: #### A DIFF, ANEU, MDW, CBC, GFR, TROPHS, BMP, MG #### [address] [address] Monocyte, Absolute 0.4 10 3/mcL Normal 0.1-1.4 [facility] Comment on above: Performed By: #### A DIFF, ANEU, MDW, CBC, GFR, TROPHS, BMP, MG #### [address] [address] Monocytes/100 WBC (Bld) 5.6 % Normal 2.0-13.0 [facility] Comment on above: Performed By: #### A DIFF, ANEU, MDW, CBC, GFR, TROPHS, BMP, MG #### [address] [address] Neutrophils/100 WBC (Bld) 78.8 % High 50.0-75.0 [facility] Comment on above: Performed By: #### A DIFF, ANEU, MDW, CBC, GFR, TROPHS, BMP, MG #### [address] [address] .GFRon 10-25-2024 Estimated Glomerular Filtration Rate 56 ml/min/1.73sqm Normal [facility] Comment on above: Result Comment: Stages of Chronic Kidney Disease (CKD) Stage Description eGFR(ml/min/1.73 sq.m.) CKD 1 Normal kidney function or >=90 normal kindney function with possible kidney damage (ex. Proteinuria) CKD 2 Kidney damage with mild loss 60-89 of kidney function CKD 3a Mild to moderate loss of kidney 45-59 function CKD 3b Moderate to severe loss of 30-44 of kindey function CKD 4 Severe loss of kidney function 15-29 CKD 5 Kidney failure <15 Note: (go live 2024) the eGFR calculation was updated to the 2020 CKD-EPI creatinine equation without a race factor to calculate the eGFR results. Performed By: #### C MP, GFR #### [address] [address] .MDWon 10-25-2024 Monocyte Distribution Width 17.20 Normal 0.00-20.00 [facility] Comment on above: Result Comment: For ED adult patients suspected of sepsis, MDW<=20.0 does not rule out sepsis or risk of sepsis Performed By: #### C MP, GFR #### [place] [address] .NEUABSon 10-25-2024 Neutrophil, Absolute 6.2 10 3/mcL Normal 2.3-8.1 [facility] Comment on above: Performed By: #### A DIFF, ANEU, MDW, CBC, GFR, TROPHS, BMP, MG #### [address] [address] ACETAon 10-25-2024 Acetaminophen [Mass/Vol] 0.0 ug/mL Low 10.0-30.0 [facility] Comment on above: Performed By: #### C MP, GFR #### [address] [address] [place] 10-25-2024 Ethanol Level <3 Normal [facility] Comment on above: Performed By: #### C MP, GFR #### [address] [address] BMPon 10-25-2024 BUN/Creatinine Ratio 16 ratio Normal 7-27 [facility] Comment on above: Performed By: #### C MP, GFR #### [address] [address] Calcium [Mass/Vol] 9.3 mg/dL Normal 8.4-10.2 [facility] Comment on above: Performed By: #### C MP, GFR #### [address] [place] [address] Chloride [Moles/Vol] 100 mmol/L Normal 98-107 [facility] Comment on above: Performed By: #### C MP, GFR #### [address] [address] CO2 [Moles/Vol] 27 mmol/L Normal 23-31 [facility] Comment on above: Performed By: #### C MP, GFR #### [address] [address] Creatinine [Mass/Vol] 1.04 mg/dL High 0.55-1.02 [facility] Comment on above: Result Comment: Test ing performed on Siemens Dimension EXL analyzer using a modified kinetic Harsh technique. Performed By: #### C MP, GFR #### [address] [address] Electrolyte Balance 9.0 mEq/L Normal 4.0-15.0 [facility] Comment on above: Performed By: #### C MP, GFR #### [address] [address] Glucose [Mass/Vol] 234 mg/dL High 83-110 [facility] Comment on above: Performed By: #### C MP, GFR #### [address] [address] Potassium [Moles/Vol] 4.6 mmol/L Normal 3.5-5.1 [facility] Comment on above: Performed By: #### C MP, GFR #### [address] [address] Sodium [Moles/Vol] 136 mmol/L Normal 136-145 [facility] Comment on above: Performed By: #### C MP, GFR #### [address] [address] Urea nitrogen [Mass/Vol] 17 mg/dL Normal 7-18 [facility] Comment on above: Performed By: #### C MP, GFR #### [address] [address] CBCon 10-25-2024 Erythrocyte distribution width (RBC) [Ratio] 15.9 % High 11.5-15.5 [facility] Comment on above: Performed By: #### A DIFF, ANEU, MDW, CBC, GFR, TROPHS, BMP, MG #### [address] [address] Hematocrit (Bld) [Volume fraction] 33.9 % Low 34.0-46.0 [facility] Comment on above: Performed By: #### A DIFF, ANEU, MDW, CBC, GFR, TROPHS, BMP, MG #### [place] [address] Hgb 11.5 G/dL Low 12.0-16.0 [facility] Comment on above: Performed By: #### A DIFF, ANEU, MDW, CBC, GFR, TROPHS, BMP, MG #### [place] [address] MCH (RBC) [Entitic mass] 29.7 pg Normal 27.0-33.0 [facility] Comment on above: Performed By: #### A DIFF, ANEU, MDW, CBC, GFR, TROPHS, BMP, MG #### [address] [address] MCHC 34.0 G/dL Normal 32.0-36.0 [facility] Comment on above: Performed By: #### A DIFF, ANEU, MDW, CBC, GFR, TROPHS, BMP, MG #### [place] [id number] MCV (RBC) [Entitic vol] 87.3 fL Normal 80.0-99.0 [facility] Comment on above: Performed By: #### A DIFF, ANEU, MDW, CBC, GFR, TROPHS, BMP, MG #### [address] [address] Platelet 295 10 3/mcL Normal 150-450 [facility] Comment on above: Performed By: #### A DIFF, ANEU, MDW, CBC, GFR, TROPHS, BMP, MG #### [place] [id number] [place], [place] [address] Platelet mean volume (Bld) [Entitic vol] 6.1 fL Low 6.6-10.5 [facility] Comment on above: Performed By: #### A DIFF, ANEU, MDW, CBC, GFR, TROPHS, BMP, MG #### [place] [id number] [place] [address] RBC 3.88 10 6/mcL Low 4.10-5.30 [facility] Comment on above: Performed By: #### A DIFF, ANEU, MDW, CBC, GFR, TROPHS, BMP, MG #### [place] [address] WBC 7.9 10 3/mcL Normal 4.5-10.8 [facility] Comment on above: Performed By: #### A DIFF, ANEU, MDW, CBC, GFR, TROPHS, BMP, MG #### [address] [address] [address] HEAD OR BRAIN W/O CONTRAS Ton 10-25-2024 CT HEAD OR BRAIN W/O CONTRAST ORIGINAL HISTORY: Altered mental status COMPARISON: No TECHNIQUE: Routine noncontrast head CT, with sagittal and coronal reconstructions. This exam was performed according to our departmental dose optimization program, and includes the following measures where applicable: automated exposure control, adjustment of the mAs and/or kVp according to patient size and/or exam, and an iterative reconstruction algorithm. FINDINGS: The ventricles and sulci are mildly enlarged. There are no abnormal intra or extra-axial fluid collections. There is mild irregular decreased attenuation in the cerebral white matter. Tee-white matter differentiation is maintained. The calvaria and the bones of the base of the skull are intact. IMPRESSION: Mild volume loss and small vessel ischemic disease. Interpreted by: Arlye Blood MD Preliminary Report By: Arley Blood MD Electronically signed By Arley Blood MD Dictated Date: 10/25/2024 8:45:25 AM Prelim Date: 10/25/2024 8:46:56 AM Sign Date: 10/25/2024 8:46:56 AM Ordering Provider: RON Ashley [facility] MGon 10-25-2024 Magnesium [Mass/Vol] 1.6 mg/dL Low 1.8-2.4 [facility] Comment on above: Performed By: #### C MP, GFR #### [address] [address] SALon 10-25-2024 Salicylate Level 1.1 mg/dL Low 2.8-20.0 [facility] Comment on above: Performed By: #### C MP, GFR #### [address] [address] TROPHSon 10-25-2024 High Sensitivity Troponin I 17 ng/L Normal 0-51 [facility] Comment on above: Result Comment: High Sensitive Troponin I Reference Ranges: Female: 0-51 ng/L Male: 0-76 ng/L Testing performed on [employer] using a homogeneous sandwich chemiluminescent immunoassay based on [employer] technology. Performed By: #### C MP, GFR #### [address] [address] on 10-25-2024 Color (U) Yellow Normal [facility] Comment on above: Performed By: #### C MP, GFR #### [address] [address] Glucose (U) [Mass/Vol] 100 mg/dL Abnormal Negative [facility] Comment on above: Performed By: #### C MP, GFR #### [address] [address] Ketones Ql (U) Negative Normal Negative [facility] Comment on above: Performed By: #### C MP, GFR #### [address] [address] UA Appear Clear Normal Clear [facility] Comment on above: Performed By: #### C MP, GFR #### [address] [address] UA Blood Trace Abnormal Negative [facility] Comment on above: Performed By: #### C MP, GFR #### [address] [address] UA Leuk Est Negative Normal Negative [facility] Comment on above: Performed By: #### C MP, GFR #### [address] [address] UA Nitrite Negative Normal Negative [facility] Comment on above: Performed By: #### C MP, GFR #### [place] [address] UA pH 6.0 Normal 5.0 - 8.0 [facility] Comment on above: Performed By: #### C MP, GFR #### [place] [address] UA Protein Negative Normal Negative [facility] Comment on above: Performed By: #### C MP, GFR #### [place] [address] UA Spec Grav 1.010 Abnormal 1.015-1.025 [facility] Comment on above: Performed By: #### C MP, GFR #### [place] [address] UA Specimen Type Not Given Normal [facility] Comment on above: Performed By: #### C MP, GFR #### [place] [address] UA Urobilinogen 0.2 E.U./dL Normal 0.2-1.0 [facility] Comment on above: Performed By: #### C MP, GFR #### [place] [address] Urobilinogen (U) [Mass/Vol] Negative Normal Negative [facility] Comment on above: Performed By: #### C MP, GFR #### [place] [address] UDRUGon 10-25-2024 Amphetamine (u) Negative Normal Negative [facility] Comment on above: Performed By: #### C MP, GFR #### [place] [address] Barbiturate (u) Negative Normal Negative [facility] Comment on above: Performed By: #### C MP, GFR #### [address] [address] Benzodiazepine (u) Negative Normal Negative [facility] Comment on above: Performed By: #### C MP, GFR #### [address] [address] Cannabinoid (u) Positive Abnormal Negative [facility] Comment on above: Performed By: #### C MP, GFR #### [address] [address] Cocaine Ql (U) Negative Normal Negative [facility] Comment on above: Performed By: #### C MP, GFR #### [address] [address] Methadone Ql (U) Negative Normal Negative [facility] Comment on above: Performed By: #### C MP, GFR #### [address] [address] Opiate (u) Negative Normal Negative [facility] Comment on above: Performed By: #### C MP, GFR #### [address] [address] PCP (u) Negative Normal Negative [facility] Comment on above: Performed By: #### C MP, GFR #### [address] [address] Urine Drugs screened: See Below Normal [facility] Comment on above: Result Comment: This drug screen is a presumptive screening only. No confirmation will be performed unless requested. Drugs screened include: Threshold Amphetamines/Methamphetamines 1,000 ng/mL Barbiturates 200 ng/mL Benzodiazepine metabolites 200 ng/mL Cannabinoids (THC metabolites) 50 ng/mL Cocaine 300 ng/mL Opiates 300 ng/mL Methadone 300 ng/mL Phencyclidine (PCP) 25 ng/mL Testing has been performed FOR MEDICAL PURPOSES ONLY. Performed By: #### C MP, GFR #### [address] [address] XR CHEST 1 VIEWon 10-25-2024 XR CHEST 1 VIEW ORIGINAL EXAMINATION: ONE XRAY VIEW OF THE CHEST 10/25/2024 8:31 am COMPARISON: November 24, 2023 HISTORY: ORDERING SYSTEM PROVIDED HISTORY: Reason for Exam: htn FINDINGS: There is partially imaged orthopedic fixation of the cervicothoracic spine. Multiple surgical clips overlie the right axilla. The cardiomediastinal silhouette is stable in width and contour. There is no focal consolidation, pleural effusion or pneumothorax. No acute displaced fracture is identified. IMPRESSION: No acute cardiopulmonary process. Interpreted by: Shaneka Padilla Preliminary Report By: Shaneka Padilla Electronically signed By Shaneka Padilla Dictated Date: 10/25/2024 8:38:44 AM Prelim Date: 10/25/2024 8:39:23 AM Sign Date: 10/25/2024 8:39:23 AM Ordering Provider: RON SANTAMARIA Normal [facility] CNOVon 10-12-2024 CNOV Normal [facility] XR CERVICAL 4V AP/LAT/FLX/EX Ton 10-12-2024 XR CERVICAL 4V AP/LAT/FLX/EXT Normal [facility] CNOVon 08-31-2024 CNOV Normal [facility] XR CERVICAL 2V AP/LATon 08-04 XR CERVICAL 2V AP/LAT Normal [facility] .Auto Diffon 08-03-2024 Basophil, Absolute 0.1 10 3/mcL Normal 0.0-0.2 [facility] Comment on above: Performed By: #### A DIFF, ANEU, CBC #### [address] [address] Basophils/100 WBC (Bld) 0.7 % Normal 0.0-2.5 [facility] Comment on above: Performed By: #### A DIFF, ANEU, CBC #### [address] [address] Eosinophil, Absolute 0.2 10 3/mcL Normal 0.0-0.7 [facility] Comment on above: Performed By: #### A DIFF, ANEU, CBC #### [address] [address] Eosinophils/100 WBC (Bld) 2.5 % Normal 0.0-7.0 [facility] Comment on above: Performed By: #### A DIFF, ANEU, CBC #### [address] [address] Lymphocyte, Absolute 2.5 10 3/mcL Normal 0.9-4.3 [facility] Comment on above: Performed By: #### A DIFF, ANEU, CBC #### [address] [address] Lymphocytes/100 WBC (Bld) 29.1 % Normal 20.0-40.0 [facility] Comment on above: Performed By: #### A DIFF, ANEU, CBC #### [address] [address] Monocyte, Absolute 0.5 10 3/mcL Normal 0.1-1.4 [facility] Comment on above: Performed By: #### A DIFF, ANEU, CBC #### [address] [address] Monocytes/100 WBC (Bld) 6.0 % Normal 2.0-13.0 [facility] Comment on above: Performed By: #### A DIFF, ANEU, CBC #### [address] [address] Neutrophils/100 WBC (Bld) 61.7 % Normal 50.0-75.0 [facility] Comment on above: Performed By: #### A DIFF, ANEU, CBC #### [address] [address] .GFRon 08-03-2024 GFR 63 ml/min/1.73sqm Normal [facility] Comment on above: Result Comment: GFR Population mean for , Non- Americans Ages 20-29 = 116 mL/min/1.73 sq.m. Ages 30-39 = 107 mL/min/1.73 sq.m. Ages 40-49 = 99 mL/min/1.73 sq.m. Ages 50-59 = 93 mL/min/1.73 sq.m. Ages 60-69 = 85 mL/min/1.73 sq.m. Ages 70+ = 75 mL/min/1.73 sq.m. Chronic Kidney Disease: Less than 60 mL/min/1.73 square meters End Stage Renal Disease: Less than 15 mL/min/1.73 square meters Performed By: #### C MP, GFR #### [address] [address] GFR Non- 52 ml/min/1.73sqm Normal [facility] Comment on above: Result Comment: GFR Population mean for , Non- Americans Ages 20-29 = 116 mL/min/1.73 sq.m. Ages 30-39 = 107 mL/min/1.73 sq.m. Ages 40-49 = 99 mL/min/1.73 sq.m. Ages 50-59 = 93 mL/min/1.73 sq.m. Ages 60-69 = 85 mL/min/1.73 sq.m. Ages 70+ = 75 mL/min/1.73 sq.m. Chronic Kidney Disease: Less than 60 mL/min/1.73 square meters End Stage Renal Disease: Less than 15 mL/min/1.73 square meters Performed By: #### C MP, GFR #### [address] [address] .NEUABSon 08-03-2024 Neutrophil, Absolute 5.4 10 3/mcL Normal 2.3-8.1 [facility] Comment on above: Performed By: #### A DIFF, ANEU, CBC #### [address] [address] CBCon 08-03-2024 Erythrocyte distribution width (RBC) [Ratio] 14.8 % Normal 11.5-15.5 [facility] Comment on above: Performed By: #### A DIFF, ANEU, CBC #### [address] [address] Hematocrit (Bld) [Volume fraction] 30.7 % Low 34.0-46.0 [facility] Comment on above: Performed By: #### A DIFF, ANEU, CBC #### [address] [address] Hgb 10.8 G/dL Low 12.0-16.0 [facility] Comment on above: Performed By: #### A DIFF, ANEU, CBC #### [address] [address] MCH (RBC) [Entitic mass] 31.5 pg Normal 27.0-33.0 [facility] Comment on above: Performed By: #### A DIFF, ANEU, CBC #### [address] [address] MCHC 35.1 G/dL Normal 32.0-36.0 [facility] Comment on above: Performed By: #### A DIFF, ANEU, CBC #### [address] [address] MCV (RBC) [Entitic vol] 89.6 fL Normal 80.0-99.0 [facility] Comment on above: Performed By: #### A DIFF, ANEU, CBC #### [address] [address] Platelet 545 10 3/mcL High 150-450 [facility] Comment on above: Performed By: #### A DIFF, ANEU, CBC #### [address] [address] Platelet mean volume (Bld) [Entitic vol] 6.0 fL Low 6.6-10.5 [facility] Comment on above: Performed By: #### A DIFF, ANEU, CBC #### [address] [address] RBC 3.43 10 6/mcL Low 4.10-5.30 [facility] Comment on above: Performed By: #### A DIFF, ANEU, CBC #### [address] [address] WBC 8.7 10 3/mcL Normal 4.5-10.8 [facility] Comment on above: Performed By: #### A DIFF, ANEU, CBC #### [address] [address] CMPon 08-03-2024 Albumin Level 3.0 G/dL Low 3.4-4.8 [facility] Comment on above: Performed By: #### C MP, GFR #### [address] [address] Albumin/Globulin [Mass ratio] 0.7 {ratio} Low 1.1-2.5 [facility] Comment on above: Performed By: #### C MP, GFR #### [address] [address] ALP [Catalytic activity/Vol] 101 U/L Normal 40-135 [facility] Comment on above: Performed By: #### C MP, GFR #### [address] [address] ALT [Catalytic activity/Vol] 98 U/L High 14-59 [facility] Comment on above: Performed By: #### C MP, GFR #### [address] [address] AST [Catalytic activity/Vol] 76 U/L High 10-40 [facility] Comment on above: Performed By: #### C MP, GFR #### [address] [address] Bili Total 0.3 mg/dL Normal 0.2-1.0 [facility] Comment on above: Result Comment: Use of this assay is not recommended for patients undergoing treatment with eltrombopag due to the potential for falsely elevated results. Performed By: #### C MP, GFR #### [address] [address] BUN/Creatinine Ratio 17 ratio Normal 7-27 [facility] Comment on above: Performed By: #### C MP, GFR #### [address] [address] Calcium [Mass/Vol] 10.0 mg/dL Normal 8.4-10.2 [facility] Comment on above: Performed By: #### C MP, GFR #### [address] [address] Chloride [Moles/Vol] 100 mmol/L Normal 98-107 [facility] Comment on above: Performed By: #### C MP, GFR #### [address] [address] CO2 [Moles/Vol] 29 mmol/L Normal 23-31 [facility] Comment on above: Performed By: #### C MP, GFR #### [address] [address] Creatinine [Mass/Vol] 1.04 mg/dL High 0.55-1.02 [facility] Comment on above: Result Comment: Test ing performed on [employer] Dimension EXL analyzer using a modified kinetic [employer] technique. Performed By: #### C MP, GFR #### [address] [address] Electrolyte Balance 8.0 mEq/L Normal 4.0-15.0 [facility] Comment on above: Performed By: #### C MP, GFR #### [address] [address] Globulin 4.4 G/dL Normal [facility] Comment on above: Performed By: #### C MP, GFR #### [address] [address] Glucose [Mass/Vol] 116 mg/dL High 83-110 [facility] Comment on above: Performed By: #### C MP, GFR #### [address] [address] Potassium [Moles/Vol] 5.1 mmol/L Normal 3.5-5.1 [facility] Comment on above: Performed By: #### C MP, GFR #### [address] [address] Sodium [Moles/Vol] 137 mmol/L Normal 136-145 [facility] Comment on above: Performed By: #### C MP, GFR #### [address] [address] Total Protein 7.4 G/dL Normal 6.4-8.2 [facility] Comment on above: Performed By: #### C MP, GFR #### [place] [id number] [place], [place] [address] Urea nitrogen [Mass/Vol] 18 mg/dL Normal 7-18 [facility] Comment on above: Performed By: #### C MP, GFR #### [place] [id number] [place], [place] [address] CNOVon 08-03-2024 CNOV Normal [facility] LABORATORYOrdered By: SYSTEM SYSTEM on 08-03-2024 Albumin BCP dye [Mass/Vol] 3.0 G/dL Low 3.4 - 4.8 G/dL AO ADM SS Albumin/Globulin [Mass ratio] 0.7 {ratio} Low 1.1 - 2.5 ratio AO ADM SS ALP [Catalytic activity/Vol] 101 U/L Normal 40 - 135 U/L AO ADM SS ALT With P-5'-P [Catalytic activity/Vol] 98 U/L High 14 - 59 U/L AO ADM SS AST With P-5'-P [Catalytic activity/Vol] 76 U/L High 10 - 40 U/L AO ADM SS Bilirubin [Mass/Vol] 0.3 mg/dL Normal 0.2 - 1 .0 mg/dL AO ADM SS Comment on above: Interpretive Data: U se of this assay is not recommended for patients undergoing treatment with eltrombopag due to the potential for falsely elevated results. Calcium [Mass/Vol] 10.0 mg/dL Normal 8.4 - 10. 2 mg/dL AO ADM SS Chloride [Moles/Vol] 100 mmol/L Normal 98 - 10 7 mmol/L AO ADM SS CO2 [Moles/Vol] 29 mmol/L Normal 23 - 31 mmol/L AO ADM SS Creatinine [Mass/Vol] 1.04 mg/dL High 0.55 - 1.02 mg/dL AO ADM SS Comment on above: Interpretive Data: T esting performed on [employer] Dimension EXL analyzer using a modified kinetic Harsh technique. Electrolyte Balance 8.0 mEq/L Normal 4.0 - 15 .0 mEq/L AO ADM SS GFR/1.73 sq M.predicted among blacks MDRD (S/P/Bld) [Vol rate/Area] 63 ml/min/1.73sqm Invalid Interpretation Code AO Chemistry S Comment on above: Interpretive Data: GFR Population mean for , Non- Americans Ages 20-29 = 116 mL/min/1.73 sq.m. Ages 30-39 = 107 mL/min/1.73 sq.m. Ages 40-49 = 99 mL/min/1.73 sq.m. Ages 50-59 = 93 mL/min/1.73 sq.m. Ages 60-69 = 85 mL/min/1.73 sq.m. Ages 70+ = 75 mL/min/1.73 sq.m. Chronic Kidney Disease: Less than 60 mL/min/1.73 square meters End Stage Renal Disease: Less than 15 mL/min/1.73 square meters GFR/1.73 sq M.predicted among non-blacks MDRD (S/P/Bld) [Vol rate/Area] 52 ml/min/1.73sqm Invalid Interpretation Code AO Chemistry S Comment on above: Interpretive Data: GFR Population mean for , Non- Americans Ages 20-29 = 116 mL/min/1.73 sq.m. Ages 30-39 = 107 mL/min/1.73 sq.m. Ages 40-49 = 99 mL/min/1.73 sq.m. Ages 50-59 = 93 mL/min/1.73 sq.m. Ages 60-69 = 85 mL/min/1.73 sq.m. Ages 70+ = 75 mL/min/1.73 sq.m. Chronic Kidney Disease: Less than 60 mL/min/1.73 square meters End Stage Renal Disease: Less than 15 mL/min/1.73 square meters Globulin 4.4 G/dL Invalid Interpretation Code AO ADM SS Glucose [Mass/Vol] 116 mg/dL High 83 - 110 mg/dL AO ADM SS Potassium [Moles/Vol] 5.1 mmol/L Normal 3.5 - 5.1 mmol/L AO ADM SS Protein [Mass/Vol] 7.4 G/dL Normal 6.4 - 8.2 G/dL AO ADM SS Sodium [Moles/Vol] 137 mmol/L Normal 136 - 145 mmol/L AO ADM SS Urea nitrogen [Mass/Vol] 18 mg/dL Normal 7 - 18 mg/dL AO ADM SS Urea nitrogen/Creatinine [Mass ratio] 17 ratio Normal 7 - 27 ratio AO ADM SS Basophils (Bld) [#/Vol] 0.1 103/mcL Normal 0.0 - 0.2 10^3/mcL AO Workflow SS Basophils/100 WBC (Bld) 0.7 % Normal 0.0 - 2.5 % AO Workflow SS Eosinophil, Absolute 0.2 103/mcL Normal 0.0 - 0 .7 10^3/mcL AO Workflow SS Eosinophils/100 WBC (Bld) 2.5 % Normal 0.0 - 7.0 % AO Workflow SS Erythrocyte distribution width (RBC) [Ratio] 14.8 % Normal 11.5 - 15.5 % AO Workflow SS Hematocrit (Bld) [Volume fraction] 30.7 % Low 34.0 - 46.0 % AO Workflow SS Hemoglobin (Bld) [Mass/Vol] 10.8 G/dL Low 12.0 - 16.0 G/dL AO Workflow SS Lymphocytes (Bld) [#/Vol] 2.5 103/mcL Normal 0.9 - 4.3 10^3/mcL AO Workflow SS Lymphocytes/100 WBC (Bld) 29.1 % Normal 20.0 - 40.0 % AO Workflow SS MCH (RBC) [Entitic mass] 31.5 pg Normal 27.0 - 33.0 pg AO Workflow SS MCHC 35.1 G/dL Normal 32.0 - 36.0 G/dL AO Workflow SS MCV (RBC) [Entitic vol] 89.6 fL Normal 80.0 - 99.0 fL AO Workflow SS Monocytes (Bld) [#/Vol] 0.5 103/mcL Normal 0.1 - 1.4 10^3/mcL AO Workflow SS Monocytes/100 WBC (Bld) 6.0 % Normal 2.0 - 13.0 % AO Workflow SS Neutrophils (Bld) [#/Vol] 5.4 103/mcL Normal 2.3 - 8.1 10^3/mcL AO Workflow SS Neutrophils/100 WBC (Bld) 61.7 % Normal 50.0 - 75.0 % AO Workflow SS Platelet mean volume (Bld) [Entitic vol] 6.0 fL Low 6.6 - 10.5 fL AO Workflow SS Platelets (Bld) [#/Vol] 545 103/mcL High 150 - 450 10^3/mcL AO Workflow SS RBC (Bld) [#/Vol] 3.43 106/mcL Low 4.10 - 5.3 0 10^6/mcL AO Workflow SS WBC (Bld) [#/Vol] 8.7 103/mcL Normal 4.5 - 10.8 10^3/mcL AO Workflow SS XR CERVICAL 2V AP/LATon XR CERVICAL 2V AP/LAT Normal [facility] Basic metabolic 2000 panelon 07-28-2024 Anion gap [Moles/Vol] 10 mmol/L Normal 8-15 [facility] Comment on above: Order Comment: Speci men Type: BLOOD SPECIMENOrdering Facility: [facility] Address: [address] [place] [address] Performed By: #### 2 777-1, 57855-8, ####[facility] LABORATORYCLIA [id number] [place] [address] [place] Calcium [Mass/Vol] 9.5 mg/dL Normal 8.5-10.2 [facility] Comment on above: Order Comment: Speci men Type: BLOOD SPECIMENOrdering Facility: [facility] Address: [address] [place] [address] Performed By: #### 2 777-1, 61127-1, ####[facility] LABORATORYCLIA [id number] [place] [address] [place] Chloride [Moles/Vol] 96 mmol/L Low 98-107 [facility] Comment on above: Order Comment: Speci men Type: BLOOD SPECIMENOrdering Facility: [facility] Address: [address] [place] [address] Performed By: #### 2 777-1, 25684-4, ####[facility]ORATORYCLIA [id number] [place] [address] [place] CO2 [Moles/Vol] 26 mmol/L Normal 22-30 [facility] Comment on above: Order Comment: Speci men Type: BLOOD SPECIMENOrdering Facility: [facility] Address: [address] [place] [address] Performed By: #### 2 777-1, 69527-5, ####[facility] LABORATORYCLIA [id number] [place] [address] [place] Creatinine [Mass/Vol] 1.11 mg/dL High 0.58-0.96 [facility] Comment on above: Order Comment: Larissa garcia Type: BLOOD SPECIMENOrdering Facility: [facility] Address: [address] [place] [address] Performed By: #### 2 777-1, 37554-6, ####[facility] H[facility]PITALCLIA [id number] [address] Creatinine and Glomerular filtration rate.predicted panel (S/P/Bld) 52 mL/min/1.73m??? Low >=60 [facility] Comment on above: Order Comment: Lairssa [facility] Type: BLOOD SPECIMENOrdering Facility: [facility] Address: [address] [place] [address] Result Comment: Jany mated Glomerular Filtration Rate (eGFR) is calculated using the 2020 CKD-EPI creatinine equation. This equation utilizes serum creatinine, sex, and age as parameters. The creatinine assay has traceable calibration to isotope dilution-mass spectrometry. Refer to KDIGO guidelines for clinical interpretation. In patients with unstable renal function, e.g. those with acute kidney injury, the eGFR may not accurately reflect actual GFR. Performed By: #### 2 777-1, 33225-5, ####[facility]ITAL[facility] [id number] [place] [id number] [place] Glucose [Mass/Vol] 170 mg/dL High 74-99 [facility] Comment on above: Order Comment: Larissa radha Type: BLOOD SPECIMENOrdering Facility: [facility] Address: [address] [place] [address] Result Comment: The [place] [employer] (ADA) provides guidance for cutoff values for fasting glucose and random glucose. The ADA defines fasting as no caloric intake for at least 8 hours. Fasting plasma glucose results between 100 to 125 mg/dL indicate increased risk for diabetes (prediabetes).Fasting plasma glucose results greater than or equal to 126 mg/dL meet the criteria for diagnosis of diabetes. In the absence of unequivocal hyperglycemia, results should be confirmed by repeat testing. In a patient with classic symptoms of hyperglycemia or hyperglycemic crisis, random plasma glucose results greater than or equal to 200 mg/dL meet the criteria for diagnosis of diabetes.Reference: Standards of Medical Care in Diabetes 2016, [place] [employer]. Diabetes Care. 2016.39(Suppl 1). Performed By: #### 2 777-1, 93626-4, ####[facility] LABORATORYCLIA [id number] [place] [address] [place] Potassium [Moles/Vol] 4.9 mmol/L Normal 3.7-5.1 [facility] Comment on above: Order Comment: Speci radha Type: BLOOD SPECIMENOrdering Facility: [facility] Address: [address] [place] [address] Performed By: #### 2 777-1, , ####[facility] LABORATORYCLIA [id number] [address] [place] Sodium [Moles/Vol] 132 mmol/L Low 136-144 [facility] Comment on above: Order Comment: Larissa garcia Type: BLOOD SPECIMENOrdering Facility: [facility] Address: [address] [place] [address] Performed By: #### 2 777-1, , ####[facility] LABORATORYCLIA [id number] [place] [id number] [place] Urea nitrogen [Mass/Vol] 31 mg/dL High 7-21 [facility] Comment on above: Order Comment: Speci men Type: BLOOD SPECIMENOrdering Facility: [facility] Address: [address] [place] [address] Performed By: #### 2 777-1, , ####[facility] LABORATORYCLIA [id number] [place] [id number] [place] CASE MANAGEMon 07-28-2024 CASE MANAGEM Normal [facility] CBC panel Auto (Bld)on 07-28 Erythrocyte distribution width (RBC) [Ratio] 14.5 % Normal 11.5-15.0 [facility] Comment on above: Order Comment: Speci men Type: BLOOD SPECIMENOrdering Facility: [facility] Address: [address] [place] [address] Performed By: #### 5 8410-2 ####[facility] LABORATORYCLIA [id number] [address] OF [facility] Hematocrit (Bld) [Volume fraction] 28.5 % Low 36.0-46.0 [facility] Comment on above: Order Comment: Speci men Type: BLOOD SPECIMENOrdering Facility: [facility] Address: [address] [place] [address] Performed By: #### 5 8410-2 ####[facility] LABORATORYCLIA [id number] [address] [place] Hemoglobin (Bld) [Mass/Vol] 9.7 g/dL Low 11.5-15.5 [facility] Comment on above: Order Comment: Speci men Type: BLOOD SPECIMENOrdering Facility: [facility] Address: [address] [place] [address] Performed By: #### 5 8410-2 ####[facility] LABORATORYCLIA [id number] [address] [place] MCH (RBC) [Entitic mass] 31.0 pg Normal 26.0-34.0 [facility] Comment on above: Order Comment: Speci men Type: BLOOD SPECIMENOrdering Facility: [facility] Address: [address] [place] [address] Performed By: #### 5 8410-2 ####[facility] LABORATORYCLIA [id number] [address] [place] MCHC (RBC) [Mass/Vol] 34.0 g/dL Normal 30.5-36.0 [facility] Comment on above: Order Comment: Speci men Type: BLOOD SPECIMENOrdering Facility: [facility] Address: [address] [place] [address] Performed By: #### 5 8410-2 ####[facility] LABORATORYCLIA [id number] [address] [place] MCV (RBC) [Entitic vol] 91.1 fL Normal 80.0-100.0 [facility] Comment on above: Order Comment: Speci men Type: BLOOD SPECIMENOrdering Facility: [facility] Address: [address] [place] [address] Performed By: #### 5 8410-2 ####[facility] LABORATORYCLIA [id number] [address] Nucleated RBC (Bld) [#/Vol] 10*3/uL Normal <0.01 [facility] Comment on above: Order Comment: Speci men Type: BLOOD SPECIMENOrdering Facility: [facility] Address: [address] [place] [address] Performed By: #### 5 8410-2 ####[facility] LABORATORYCLIA [id number] [address] [place] Platelet mean volume (Bld) [Entitic vol] 8.2 fL Low 9.0-12.7 [facility] Comment on above: Order Comment: Speci men Type: BLOOD SPECIMENOrdering Facility: [facility] Address: [address] [place] [address] Performed By: #### 5 8410-2 ####[facility] LABORATORYCLIA [id number] [address] Platelets (Bld) [#/Vol] 320 10*3/uL Normal 150-400 [facility] Comment on above: Order Comment: Speci men Type: BLOOD SPECIMENOrdering Facility: [facility] Address: [address] [place] [address] Performed By: #### 5 8410-2 ####[facility] LABORATORYCLIA [id number] [address] [place] RBC (Bld) [#/Vol] 3.13 10*6/uL Low 3.90-5.20 [facility] Comment on above: Order Comment: Speci men Type: BLOOD SPECIMENOrdering Facility: [facility] Address: [address] [place], [place] [address] Performed By: #### 5 8410-2 ####[facility] LABORATORYCLIA [id number] [place] [id number] [place] WBC (Bld) [#/Vol] 7.45 10*3/uL Normal 3.70-11.00 [facility] Comment on above: Order Comment: Speci men Type: BLOOD SPECIMENOrdering Facility: [facility] Address: [address] [place] [address] Performed By: #### 5 8410-2 ####[facility] LABORATORYCLIA [id number] [address] [place] CNDSon 07-28-2024 CNDS Normal [facility] Magnesium SerPl-mCncon 07-28 Magnesium [Mass/Vol] 2.0 mg/dL Normal 1.7-2.3 [facility] Comment on above: Order Comment: Speci men Type: BLOOD SPECIMENOrdering Facility: [facility] Address: [address] [place] [address] Performed By: #### 2 777-1, 68540-8, ####[facility] LABORATORYCLIA [id number] [address] [place] NUTRITIONon 07-28-2024 NUTRITION Normal [facility] Phosphate SerPl-mCncon 07-28 Phosphate [Mass/Vol] 4.4 mg/dL Normal 2.7-4.8 [facility] Comment on above: Order Comment: Speci men Type: BLOOD SPECIMENOrdering Facility: [facility] Address: [address] [place], [place] [address] Performed By: #### 2 777-1, 03127-7, ####[facility] LABORATORYCLIA [id number] [place] [address] [place] Basic metabolic 2000 panelon 07-27-2024 Anion gap [Moles/Vol] 11 mmol/L Normal 8-15 [facility] Comment on above: Order Comment: Speci men Type: BLOOD SPECIMENOrdering Facility: [facility] Address: [address] [place] [address] Performed By: #### 1 9123-9, 27701-30, 18081-8 ####[facility] LABORATORYCLIA [id number] [place] [address] [place] Calcium [Mass/Vol] 9.7 mg/dL Normal 8.5-10.2 [facility] Comment on above: Order Comment: Speci men Type: BLOOD SPECIMENOrdering Facility: [facility] Address: [address] [place] [address] Performed By: #### 1 9123-9, 2776-08, ####[facility] LABORATORYCLIA [id number] [place] [address] [place] Chloride [Moles/Vol] 93 mmol/L Low 98-107 [facility] Comment on above: Order Comment: Speci men Type: BLOOD SPECIMENOrdering Facility: [facility] Address: [address] [place] [address] Performed By: #### 1 9123-9, 27701-30, ####[facility] LABORATORYCLIA [id number] [place] [address] [place] CO2 [Moles/Vol] 25 mmol/L Normal 22-30 [facility] Comment on above: Order Comment: Speci men Type: BLOOD SPECIMENOrdering Facility: [facility] Address: [address] [place] [address] Performed By: #### 1 9123-9, 27701-30, 41904-9 ####[facility] LABORATORYCLIA [id number] [place] [address] [place] Creatinine [Mass/Vol] 1.01 mg/dL High 0.58-0.96 [facility] Comment on above: Order Comment: Speci men Type: BLOOD SPECIMENOrdering Facility: [facility] Address: [address] [place] [address] Performed By: #### 1 9123-9, 2771, 63058-9 ####[facility]ITALIA [id number] [address] [place] Creatinine and Glomerular filtration rate.predicted panel (S/P/Bld) 58 mL/min/1.73m??? Low >=60 [facility] Comment on above: Order Comment: Spectamara garcia Type: BLOOD SPECIMENOrdering Facility: [facility] Address: [address] [place] [address] Result Comment: Jany mated Glomerular Filtration Rate (eGFR) is calculated using the 2020 CKD-EPI creatinine equation. This equation utilizes serum creatinine, sex, and age as parameters. The creatinine assay has traceable calibration to isotope dilution-mass spectrometry. Refer to KDIGO guidelines for clinical interpretation. In patients with unstable renal function, e.g. those with acute kidney injury, the eGFR may not accurately reflect actual GFR. Performed By: #### 1 9123-9, 2777-1, 49320-1 ####[facility]ITAL[facility] [id number] [address] [place] Glucose [Mass/Vol] 192 mg/dL High 74-99 [facility] Comment on above: Order Comment: Larissa garcia Type: BLOOD SPECIMENOrdering Facility: [facility] Address: [address] [place] [address] Result Comment: The [place] [employer] (ADA) provides guidance for cutoff values for fasting glucose and random glucose. The ADA defines fasting as no caloric intake for at least 8 hours. Fasting plasma glucose results between 100 to 125 mg/dL indicate increased risk for diabetes (prediabetes).Fasting plasma glucose results greater than or equal to 126 mg/dL meet the criteria for diagnosis of diabetes. In the absence of unequivocal hyperglycemia, results should be confirmed by repeat testing. In a patient with classic symptoms of hyperglycemia or hyperglycemic crisis, random plasma glucose results greater than or equal to 200 mg/dL meet the criteria for diagnosis of diabetes.Reference: Standards of Medical Care in Diabetes 2016, [place] [employer]. Diabetes Care. 2016.39(Suppl 1). Performed By: #### 1 9123-9, 2777-1, 36893-2 ####[facility] LABORATORYCLIA [id number] [place] [address] [place] Potassium [Moles/Vol] 5.2 mmol/L High 3.7-5.1 [facility] Comment on above: Order Comment: Speci men Type: BLOOD SPECIMENOrdering Facility: [facility] Address: [address] [place] [address] Performed By: #### 1 9123-9, 2777-1, 59871-1 ####[facility] LABORATORYCLIA [id number] [address] [place] Sodium [Moles/Vol] 129 mmol/L Low 136-144 [facility] Comment on above: Order Comment: Speci men Type: BLOOD SPECIMENOrdering Facility: [facility] Address: [address] [place] [address] Performed By: #### 1 9123-9, 2777-1, 08257-9 ####[facility] LABORATORYCLIA [id number] [address] STATES OF [facility] Urea nitrogen [Mass/Vol] 26 mg/dL High 7-21 [facility] Comment on above: Order Comment: Speci men Type: BLOOD SPECIMENOrdering Facility: [facility] Address: [address] [place] [address] Performed By: #### 1 9123-9, 2777-1, 91869-7 ####[facility] LABORATORYCLIA [id number] [address] [place] OF [facility] CBC panel Auto (Bld)on 07-27 Erythrocyte distribution width (RBC) [Ratio] 14.2 % Normal 11.5-15.0 [facility] Comment on above: Order Comment: Speci men Type: BLOOD SPECIMENOrdering Facility: [facility] Address: [address] [place] [address] Performed By: #### 5 8410-2 ####[facility] LABORATORYCLIA [id number] [address] [place] Hematocrit (Bld) [Volume fraction] 29.3 % Low 36.0-46.0 [facility] Comment on above: Order Comment: Speci men Type: BLOOD SPECIMENOrdering Facility: [facility] Address: [address] [place] [address] Performed By: #### 5 8410-2 ####[facility] LABORATORYCLIA [id number] [address] STATES OF [facility] Hemoglobin (Bld) [Mass/Vol] 9.9 g/dL Low 11.5-15.5 [facility] Comment on above: Order Comment: Speci men Type: BLOOD SPECIMENOrdering Facility: [facility] Address: [address] [place] [address] Performed By: #### 5 8410-2 ####[facility] LABORATORYCLIA [id number] [address] [place] MCH (RBC) [Entitic mass] 30.8 pg Normal 26.0-34.0 [facility] Comment on above: Order Comment: Speci men Type: BLOOD SPECIMENOrdering Facility: [facility] Address: [address] [place] [address] Performed By: #### 5 8410-2 ####[facility] LABORATORYCLIA [id number] [address] [place] MCHC (RBC) [Mass/Vol] 33.8 g/dL Normal 30.5-36.0 [facility] Comment on above: Order Comment: Speci men Type: BLOOD SPECIMENOrdering Facility: [facility] Address: [address] [place] [address] Performed By: #### 5 8410-2 ####[facility] LABORATORYCLIA [id number] [address] [place] MCV (RBC) [Entitic vol] 91.3 fL Normal 80.0-100.0 [facility] Comment on above: Order Comment: Speci men Type: BLOOD SPECIMENOrdering Facility: [facility] Address: [address] [place] [address] Performed By: #### 5 8410-2 ####[facility] LABORATORYCLIA [id number] [address] [place] Nucleated RBC (Bld) [#/Vol] 10*3/uL Normal <0.01 [facility] Comment on above: Order Comment: Speci men Type: BLOOD SPECIMENOrdering Facility: [facility] Address: [address] [place] [address] Performed By: #### 5 8410-2 ####[facility] LABORATORYCLIA [id number] [place] [address] [place] Platelet mean volume (Bld) [Entitic vol] 8.3 fL Low 9.0-12.7 [facility] Comment on above: Order Comment: Speci men Type: BLOOD SPECIMENOrdering Facility: [facility] Address: [address] [place] [address] Performed By: #### 5 8410-2 ####[facility] LABORATORYCLIA [id number] [address] [place] Platelets (Bld) [#/Vol] 330 10*3/uL Normal 150-400 [facility] Comment on above: Order Comment: Speci men Type: BLOOD SPECIMENOrdering Facility: [facility] Address: [address] [place] [address] Performed By: #### 5 8410-2 ####[facility] LABORATORYCLIA [id number] [address] [place] RBC (Bld) [#/Vol] 3.21 10*6/uL Low 3.90-5.20 [facility] Comment on above: Order Comment: Speci men Type: BLOOD SPECIMENOrdering Facility: [facility] Address: [address] [place] [address] Performed By: #### 5 8410-2 ####[facility] LABORATORYCLIA [id number] [address] [place] WBC (Bld) [#/Vol] 8.76 10*3/uL Normal 3.70-11.00 [facility] Comment on above: Order Comment: Speci men Type: BLOOD SPECIMENOrdering Facility: [facility] Address: [address] [place] [address] Performed By: #### 5 8410-2 ####[facility] LABORATORYCLIA [id number] [place] [address] [place] Magnesium SerPl-mCncon 07-27 Magnesium [Mass/Vol] 1.8 mg/dL Normal 1.7-2.3 [facility] Comment on above: Order Comment: Speci men Type: BLOOD SPECIMENOrdering Facility: [facility] Address: [address] [place] [address] Performed By: #### 1 9123-9, 2777-1, 73167-8 ####[facility] LABORATORYCLIA [id number] [place] [address] [place] Osmolality Uron 07-27-2024 Osmolality (U) [Osmolality] 673 mosm/kg Normal 50-1200 [facility] Comment on above: Order Comment: Speci men Type: URINE SPECIMENOrdering Facility: [facility] Address: [address] [place] [address] Performed By: #### 2 695-5, 18433-7, 33471-6 ####[facility] LABORATORYCLIA [id number] [place] [address] [place] POTASSIUMon 07-27-2024 Potassium [Moles/Vol] 4.8 mmol/L Normal 3.7-5.1 [facility] Comment on above: Order Comment: Speci men Type: BLOOD SPECIMENOrdering Facility: [facility] Address: [address] [place] [address] Performed By: #### K 1, 2951-2 ####[facility] LABORATORYCLIA [id number] [place] [address] [place] Phosphate SerPl-mCncon 07-27 Phosphate [Mass/Vol] 4.0 mg/dL Normal 2.7-4.8 [facility] Comment on above: Order Comment: Speci men Type: BLOOD SPECIMENOrdering Facility: [facility] Address: [address] [place] [address] Performed By: #### 1 9123-9, 2777-1, 24210-1 ####[facility] LABORATORYCLIA [id number] [place] [address] [place] Potassium Unsp time (U) [Mol es/Vol]on 07-27-2024 Potassium (U) [Moles/Vol] 50.0 mmol/L Normal 10.0-160.0 [facility] Comment on above: Order Comment: Speci men Type: URINE SPECIMENOrdering Facility: [facility] Address: [facility] [place] [address] Performed By: #### 2 695-5, 70378-8, 21363-1 ####[facility] LABORATORYCLIA [id number] [address] [place] Sodium ?Tm Ur-sCncon 024 Sodium Unsp time (U) [Moles/Vol] 53 mmol/L Normal 14-216 [facility] Comment on above: Order Comment: Speci men Type: URINE SPECIMENOrdering Facility: [facility] Address: [address] [place] [address] Performed By: #### 2 695-5, 34382-8, 77458-2 ####[facility] LABORATORYCLIA [id number] [address] [place] Sodium SerPl-sCncon 07-27-20 24 Sodium [Moles/Vol] 130 mmol/L Low 136-144 [facility] Comment on above: Order Comment: Speci men Type: BLOOD SPECIMENOrdering Facility: [facility] Address: [address] [place] [address] Performed By: #### K 1, 2951-2 ####[facility] LABORATORYCLIA [id number] [place] [address] [place] Basic metabolic 2000 panelon 07-26-2024 Anion gap [Moles/Vol] 12 mmol/L Normal 8-15 [facility] Comment on above: Order Comment: Speci men Type: BLOOD SPECIMENOrdering Facility: [facility] Address: [address] [place] [address] Performed By: #### 2 4321-2, , 2776-08 ####[facility] LABORATORYCLIA [id number] [place] [address] [place] Calcium [Mass/Vol] 9.4 mg/dL Normal 8.5-10.2 [facility] Comment on above: Order Comment: Speci men Type: BLOOD SPECIMENOrdering Facility: [facility] Address: [address] [place] [address] Performed By: #### 2 4321-2, , 2776-08 ####[facility] LABORATORYCLIA [id number] [place] [address] [place] Chloride [Moles/Vol] 90 mmol/L Low 98-107 [facility] Comment on above: Order Comment: Speci men Type: BLOOD SPECIMENOrdering Facility: [facility] Address: [address] [place] [address] Performed By: #### 2 4321-2, , 2776-08 ####[facility] LABORATORYCLIA [id number] [place] [address] [place] CO2 [Moles/Vol] 25 mmol/L Normal 22-30 [facility] Comment on above: Order Comment: Speci men Type: BLOOD SPECIMENOrdering Facility: [facility] Address: [address] [place] [address] Performed By: #### 2 4321-2, , 2776-08 ####[facility] LABORATORYCLIA [id number] [place] [address] [place] Creatinine [Mass/Vol] 0.93 mg/dL Normal 0.58-0.96 [facility] Comment on above: Order Comment: Speci men Type: BLOOD SPECIMENOrdering Facility: [facility] Address: [address] [place] [address] Performed By: #### 2 4321-2, , 2776-08 ####[facility] LABORATORYCLIA [id number] [place] [address] [place] Creatinine and Glomerular filtration rate.predicted panel (S/P/Bld) 64 mL/min/1.73m??? Normal >=60 [facility] Comment on above: Order Comment: Larissa garcia Type: BLOOD SPECIMENOrdering Facility: [facility] Address: [address] [place] [address] Result Comment: Jany mated Glomerular Filtration Rate (eGFR) is calculated using the 2020 CKD-EPI creatinine equation. This equation utilizes serum creatinine, sex, and age as parameters. The creatinine assay has traceable calibration to isotope dilution-mass spectrometry. Refer to KDIGO guidelines for clinical interpretation. In patients with unstable renal function, e.g. those with acute kidney injury, the eGFR may not accurately reflect actual GFR. Performed By: #### 2 4321-2, 44256-2, 2776-08 ####[facility] LABORATORYCLIA [id number] [place] [address] [place] Glucose [Mass/Vol] 149 mg/dL High 74-99 [facility] Comment on above: Order Comment: Larissa garcia Type: BLOOD SPECIMENOrdering Facility: [facility] Address: [address] [place] [address] Result Comment: The [place] [employer] (ADA) provides guidance for cutoff values for fasting glucose and random glucose. The ADA defines fasting as no caloric intake for at least 8 hours. Fasting plasma glucose results between 100 to 125 mg/dL indicate increased risk for diabetes (prediabetes).Fasting plasma glucose results greater than or equal to 126 mg/dL meet the criteria for diagnosis of diabetes. In the absence of unequivocal hyperglycemia, results should be confirmed by repeat testing. In a patient with classic symptoms of hyperglycemia or hyperglycemic crisis, random plasma glucose results greater than or equal to 200 mg/dL meet the criteria for diagnosis of diabetes.Reference: Standards of Medical Care in Diabetes 2016, [place] [employer]. Diabetes Care. 2016.39(Suppl 1). Performed By: #### 2 4321-2, 16869-6, 2776-08 ####[facility] LABORATORYCLIA [id number] [place] [id number] [place] Potassium [Moles/Vol] 4.5 mmol/L Normal 3.7-5.1 [facility] Comment on above: Order Comment: Speci men Type: BLOOD SPECIMENOrdering Facility: [facility] Address: [facility] [place] [address] Performed By: #### 2 4321-2, , 2776-08 ####[facility] LABORATORYCLIA [id number] [address] STATES OF [facility] Sodium [Moles/Vol] 127 mmol/L Low 136-144 [facility] Comment on above: Order Comment: Speci men Type: BLOOD SPECIMENOrdering Facility: [facility] Address: [address] [place] [address] Performed By: #### 2 4321-2, , 2776-08 ####[facility] LABORATORYCLIA [id number] [address] STATES OF [facility] Urea nitrogen [Mass/Vol] 19 mg/dL Normal 7-21 [facility] Comment on above: Order Comment: Speci men Type: BLOOD SPECIMENOrdering Facility: [facility] Address: [address] [place] [address] Performed By: #### 2 4321-2, , 2776-08 ####[facility] LABORATORYCLIA [id number] [address] CBC panel Auto (Bld)on 07-26 Erythrocyte distribution width (RBC) [Ratio] 14.5 % Normal 11.5-15.0 [facility] Comment on above: Order Comment: Speci men Type: BLOOD SPECIMENOrdering Facility: [facility] Address: [address] [place] [address] Performed By: #### 5 8410-2 ####[facility] LABORATORYCLIA [id number] [address] Hematocrit (Bld) [Volume fraction] 24.1 % Low 36.0-46.0 [facility] Comment on above: Order Comment: Speci men Type: BLOOD SPECIMENOrdering Facility: [facility] Address: [address] [place] [address] Performed By: #### 5 8410-2 ####[facility] LABORATORYCLIA [id number] [address] Hemoglobin (Bld) [Mass/Vol] 8.4 g/dL Low 11.5-15.5 [facility] Comment on above: Order Comment: Speci men Type: BLOOD SPECIMENOrdering Facility: [facility] Address: [address] [place] [address] Performed By: #### 5 8410-2 ####[facility] LABORATORYCLIA [id number] [address] [place] MCH (RBC) [Entitic mass] 31.7 pg Normal 26.0-34.0 [facility] Comment on above: Order Comment: Speci men Type: BLOOD SPECIMENOrdering Facility: [facility] Address: [address] [place] [address] Performed By: #### 5 8410-2 ####[facility] LABORATORYCLIA [id number] [address] MCHC (RBC) [Mass/Vol] 34.9 g/dL Normal 30.5-36.0 [facility] Comment on above: Order Comment: Speci men Type: BLOOD SPECIMENOrdering Facility: [facility] Address: [address] [place] [address] Performed By: #### 5 8410-2 ####[facility] LABORATORYCLIA [id number] [address] [place] MCV (RBC) [Entitic vol] 90.9 fL Normal 80.0-100.0 [facility] Comment on above: Order Comment: Speci men Type: BLOOD SPECIMENOrdering Facility: [facility] Address: [address] [place] [address] Performed By: #### 5 8410-2 ####[facility] LABORATORYCLIA [id number] [address] OF [facility] Nucleated RBC (Bld) [#/Vol] 10*3/uL Normal <0.01 [facility] Comment on above: Order Comment: Speci men Type: BLOOD SPECIMENOrdering Facility: [facility] Address: [address] [place] [address] Performed By: #### 5 8410-2 ####[facility] LABORATORYCLIA [id number] [place] [address] [place] Platelet mean volume (Bld) [Entitic vol] 8.9 fL Low 9.0-12.7 [facility] Comment on above: Order Comment: Speci men Type: BLOOD SPECIMENOrdering Facility: [facility] Address: [address] [place] [address] Performed By: #### 5 8410-2 ####[facility] LABORATORYCLIA [id number] [address] [place] Platelets (Bld) [#/Vol] 187 10*3/uL Normal 150-400 [facility] Comment on above: Order Comment: Speci men Type: BLOOD SPECIMENOrdering Facility: [facility] Address: [address] [place] [address] Performed By: #### 5 8410-2 ####[facility] LABORATORYCLIA [id number] [place] [address] [place] RBC (Bld) [#/Vol] 2.65 10*6/uL Low 3.90-5.20 [facility] Comment on above: Order Comment: Speci men Type: BLOOD SPECIMENOrdering Facility: [facility] Address: [address] [place] [address] Performed By: #### 5 8410-2 ####[facility] LABORATORYCLIA [id number] [place] [address] [place] WBC (Bld) [#/Vol] 7.65 10*3/uL Normal 3.70-11.00 [facility] Comment on above: Order Comment: Speci men Type: BLOOD SPECIMENOrdering Facility: [facility] Address: [address] [place] [address] Performed By: #### 5 8410-2 ####[facility]ORATORYCLIA [id number] [place] [address] [place] Magnesium SerPl-mCncon 07-26 Magnesium [Mass/Vol] 1.7 mg/dL Normal 1.7-2.3 [facility] Comment on above: Order Comment: Speci men Type: BLOOD SPECIMENOrdering Facility: [facility] Address: [address] [place] [address] Performed By: #### 2 4321-2, , 2776-08 ####[facility] LABORATORYCLIA [id number] [place] [address] [place] Phosphate SerPl-mCncon 07-26 Phosphate [Mass/Vol] 4.1 mg/dL Normal 2.7-4.8 [facility] Comment on above: Order Comment: Speci men Type: BLOOD SPECIMENOrdering Facility: [facility] Address: [address] [place] [address] Performed By: #### 2 4321-2, , 27701-30 ####[facility] LABORATORYCLIA [id number] [place] [address] [place] Basic metabolic 2000 panelon 07-25-2024 Anion gap [Moles/Vol] 7 mmol/L Low 8-15 [facility] Comment on above: Order Comment: Speci men Type: BLOOD SPECIMENOrdering Facility: [facility] Address: [address] [place] [address] Performed By: #### 2 777-1, , 32238-6 ####[facility] LABORATORYCLIA [id number] [place] [address] [place] Calcium [Mass/Vol] 9.5 mg/dL Normal 8.5-10.2 [facility] Comment on above: Order Comment: Speci men Type: BLOOD SPECIMENOrdering Facility: [facility] Address: [address] [place] [address] Performed By: #### 2 777-1, , 15249-6 ####[facility] LABORATORYCLIA [id number] [address] STATES OF [facility] Chloride [Moles/Vol] 92 mmol/L Low 98-107 [facility] Comment on above: Order Comment: Speci men Type: BLOOD SPECIMENOrdering Facility: [facility] Address: [address] [place] [address] Performed By: #### 2 777-1, , 08292-9 ####[facility] LABORATORYCLIA [id number] [address] OF [facility] CO2 [Moles/Vol] 28 mmol/L Normal 22-30 [facility] Comment on above: Order Comment: Speci men Type: BLOOD SPECIMENOrdering Facility: [facility] Address: [address] [place] [address] Performed By: #### 2 777-1, , 05200-6 ####[facility] LABORATORYCLIA [id number] [address] Creatinine [Mass/Vol] 0.86 mg/dL Normal 0.58-0.96 [facility] Comment on above: Order Comment: Speci men Type: BLOOD SPECIMENOrdering Facility: [facility] Address: [address] [place] [address] Performed By: #### 2 777-1, , 36797-1 ####[facility] LABORATORYCLIA [id number] [address] Creatinine and Glomerular filtration rate.predicted panel (S/P/Bld) 71 mL/min/1.73m??? Normal >=60 [facility] Comment on above: Order Comment: Speci men Type: BLOOD SPECIMENOrdering Facility: [facility] Address: [address] [place] [address] Result Comment: Jany mated Glomerular Filtration Rate (eGFR) is calculated using the 2020 CKD-EPI creatinine equation. This equation utilizes serum creatinine, sex, and age as parameters. The creatinine assay has traceable calibration to isotope dilution-mass spectrometry. Refer to KDIGO guidelines for clinical interpretation. In patients with unstable renal function, e.g. those with acute kidney injury, the eGFR may not accurately reflect actual GFR. Performed By: #### 2 777-1, , ####[facility]ITALCLIA [id number] [place] [address] [place] Glucose [Mass/Vol] 163 mg/dL High 74-99 [facility] Comment on above: Order Comment: Larissa garcia Type: BLOOD SPECIMENOrdering Facility: [facility] Address: [address] [place] [address] Result Comment: The [place] [employer] (ADA) provides guidance for cutoff values for fasting glucose and random glucose. The ADA defines fasting as no caloric intake for at least 8 hours. Fasting plasma glucose results between 100 to 125 mg/dL indicate increased risk for diabetes (prediabetes).Fasting plasma glucose results greater than or equal to 126 mg/dL meet the criteria for diagnosis of diabetes. In the absence of unequivocal hyperglycemia, results should be confirmed by repeat testing. In a patient with classic symptoms of hyperglycemia or hyperglycemic crisis, random plasma glucose results greater than or equal to 200 mg/dL meet the criteria for diagnosis of diabetes.Reference: Standards of Medical Care in Diabetes 2016, [place] [employer]. Diabetes Care. 2016.39(Suppl 1). Performed By: #### 2 777-1, , ####[facility] H[facility]PITALCLIA [id number] [place] [address] [place] Potassium [Moles/Vol] 4.5 mmol/L Normal 3.7-5.1 [facility] Comment on above: Order Comment: Larissa garcia Type: BLOOD SPECIMENOrdering Facility: [facility] Address: [address] [place] [address] Performed By: #### 2 777-1, , 51938-6 ####[facility] LABORATORYIA [id number] [place] [id number] [place] Sodium [Moles/Vol] 127 mmol/L Low 136-144 [facility] Comment on above: Order Comment: Larissa garcia Type: BLOOD SPECIMENOrdering Facility: [facility] Address: [address] [place] [address] Performed By: #### 2 777-1, 46817-4, 15375-4 ####[facility] LABORATORYCLIA [id number] [place] [id number] [place] [facility] Urea nitrogen [Mass/Vol] 17 mg/dL Normal 7-21 [facility] Comment on above: Order Comment: Speci men Type: BLOOD SPECIMENOrdering Facility: [facility] Address: [address] [place] [address] Performed By: #### 2 777-1, , 14879-7 ####[facility] LABORATORYCLIA [id number] [address] CBC panel Auto (Bld)on 07-25 Erythrocyte distribution width (RBC) [Ratio] 14.3 % Normal 11.5-15.0 [facility] Comment on above: Order Comment: Speci men Type: BLOOD SPECIMENOrdering Facility: [facility] Address: [address] [place] [address] Performed By: #### 5 8410-2 ####[facility] LABORATORYCLIA [id number] [address] STATES [facility] Hematocrit (Bld) [Volume fraction] 27.5 % Low 36.0-46.0 [facility] Comment on above: Order Comment: Speci men Type: BLOOD SPECIMENOrdering Facility: [facility] Address: [address] [place] [address] Performed By: #### 5 8410-2 ####[facility] LABORATORYCLIA [id number] [address] [place] Hemoglobin (Bld) [Mass/Vol] 9.6 g/dL Low 11.5-15.5 [facility] Comment on above: Order Comment: Speci men Type: BLOOD SPECIMENOrdering Facility: [facility] Address: [address] [place] [address] Performed By: #### 5 8410-2 ####[facility] LABORATORYCLIA [id number] [address] STATES [facility] MCH (RBC) [Entitic mass] 31.2 pg Normal 26.0-34.0 [facility] Comment on above: Order Comment: Speci men Type: BLOOD SPECIMENOrdering Facility: [facility] Address: [address] [place] [address] Performed By: #### 5 8410-2 ####[facility] LABORATORYCLIA [id number] [address] [place] MCHC (RBC) [Mass/Vol] 34.9 g/dL Normal 30.5-36.0 [facility] Comment on above: Order Comment: Speci men Type: BLOOD SPECIMENOrdering Facility: [facility] Address: [address] [place] [address] Performed By: #### 5 8410-2 ####[facility] LABORATORYCLIA [id number] [address] [place] MCV (RBC) [Entitic vol] 89.3 fL Normal 80.0-100.0 [facility] Comment on above: Order Comment: Speci men Type: BLOOD SPECIMENOrdering Facility: [facility] Address: [address] [place] [address] Performed By: #### 5 8410-2 ####[facility] LABORATORYCLIA [id number] [address] Nucleated RBC (Bld) [#/Vol] 10*3/uL Normal <0.01 [facility] Comment on above: Order Comment: Speci men Type: BLOOD SPECIMENOrdering Facility: [facility] Address: [address] [place] [address] Performed By: #### 5 8410-2 ####[facility] LABORATORYCLIA [id number] [address] Platelet mean volume (Bld) [Entitic vol] 8.5 fL Low 9.0-12.7 [facility] Comment on above: Order Comment: Speci men Type: BLOOD SPECIMENOrdering Facility: [facility] Address: [address] [place] [address] Performed By: #### 5 8410-2 ####[facility] LABORATORYCLIA [id number] [address] OF [facility] Platelets (Bld) [#/Vol] 256 10*3/uL Normal 150-400 [facility] Comment on above: Order Comment: Speci men Type: BLOOD SPECIMENOrdering Facility: [facility] Address: [address] [place] [address] Performed By: #### 5 8410-2 ####[facility] LABORATORYCLIA [id number] [place] [address] [place] RBC (Bld) [#/Vol] 3.08 10*6/uL Low 3.90-5.20 [facility] Comment on above: Order Comment: Speci men Type: BLOOD SPECIMENOrdering Facility: [facility] Address: [address] [place] [address] Performed By: #### 5 8410-2 ####[facility] LABORATORYCLIA [id number] [address] WBC (Bld) [#/Vol] 8.15 10*3/uL Normal 3.70-11.00 [facility] Comment on above: Order Comment: Speci men Type: BLOOD SPECIMENOrdering Facility: [facility] Address: [address] [place] [address] Performed By: #### 5 8410-2 ####[facility] LABORATORYCLIA [id number] [address] [place] CONSULTon 07-25-2024 CONSULT Normal [facility] CONSULT PROGon 07-25-2024 CONSULT PROG Normal [facility] Magnesium SerPl-mCncon 07-25 Magnesium [Mass/Vol] 1.7 mg/dL Normal 1.7-2.3 [facility] Comment on above: Order Comment: Speci men Type: BLOOD SPECIMENOrdering Facility: [facility] Address: [address] [place] [address] Performed By: #### 2 777-1, 98440-7, 81690-6 ####[facility] LABORATORYCLIA [id number] [place] [address] [place] Phosphate SerPl-mCncon 07-25 Phosphate [Mass/Vol] 4.1 mg/dL Normal 2.7-4.8 [facility] Comment on above: Order Comment: Speci men Type: BLOOD SPECIMENOrdering Facility: [facility] Address: [address] [place] [address] Performed By: #### 2 777-1, 90628-9, 17153-1 ####[facility] LABORATORYCLIA [id number] [place] [address] [place] Sodium SerPl-sCncon 07-25-20 Sodium [Moles/Vol] 125 mmol/L Low 136-144 [facility] Comment on above: Order Comment: Speci men Type: BLOOD SPECIMENOrdering Facility: [facility] Address: [address] [place] [address] Performed By: #### 2 951-2 ####[facility] LABORATORYCLIA [id number] [address] [place] THERAPY NTon 07-25-2024 THERAPY NT Normal [facility] TSH SerPl-aCncon 07-25-2024 TSH Qn 1.250 m[IU]/L Normal 0.270-4.200 [facility] Comment on above: Order Comment: Speci men Type: BLOOD SPECIMENOrdering Facility: [facility] Address: [address] [place] [address] Performed By: #### 3 016-3 ####[facility] LABORATORYCLIA [id number] [place] [address] [place] Basic metabolic 2000 panelon 07-24-2024 Anion gap [Moles/Vol] 10 mmol/L Normal 8-15 [facility] Comment on above: Order Comment: Speci men Type: BLOOD SPECIMENOrdering Facility: [facility] Address: [address] [place] [address] Performed By: #### 2 777-1, 97762-0, 69627-7 ####[facility] LABORATORYCLIA [id number] [place] [address] [place] Calcium [Mass/Vol] 9.5 mg/dL Normal 8.5-10.2 [facility] Comment on above: Order Comment: Speci men Type: BLOOD SPECIMENOrdering Facility: [facility] Address: [address] [place] [address] Performed By: #### 2 777-1, 19229-0, ####[facility] LABORATORYCLIA [id number] [place] [address] [place] Chloride [Moles/Vol] 85 mmol/L Low 98-107 [facility] Comment on above: Order Comment: Speci men Type: BLOOD SPECIMENOrdering Facility: [facility] Address: [address] [place] [address] Performed By: #### 2 777-1, , ####[facility] LABORATORYCLIA [id number] [address] [place] CO2 [Moles/Vol] 26 mmol/L Normal 22-30 [facility] Comment on above: Order Comment: Speci men Type: BLOOD SPECIMENOrdering Facility: [facility] Address: [address] [place] [address] Performed By: #### 2 777-1, , ####[facility] LABORATORYCLIA [id number] [place] [address] [place] Creatinine [Mass/Vol] 0.82 mg/dL Normal 0.58-0.96 [facility] Comment on above: Order Comment: Speci men Type: BLOOD SPECIMENOrdering Facility: [facility] Address: [address] [place] [address] Performed By: #### 2 777-1, 96882-7, ####[facility] LABORATORYCLIA [id number] [address] [place] Creatinine and Glomerular filtration rate.predicted panel (S/P/Bld) 75 mL/min/1.73m??? Normal >=60 [facility] Comment on above: Order Comment: Larissa garcia Type: BLOOD SPECIMENOrdering Facility: [facility] Address: [address] [place] [address] Result Comment: Jany mated Glomerular Filtration Rate (eGFR) is calculated using the 2020 CKD-EPI creatinine equation. This equation utilizes serum creatinine, sex, and age as parameters. The creatinine assay has traceable calibration to isotope dilution-mass spectrometry. Refer to KDIGO guidelines for clinical interpretation. In patients with unstable renal function, e.g. those with acute kidney injury, the eGFR may not accurately reflect actual GFR. Performed By: #### 2 777-1, 29374-3, 26772-7 ####[facility]ITAL[facility]IA [id number] [place] [address] [place] Glucose [Mass/Vol] 207 mg/dL High 74-99 [facility] Comment on above: Order Comment: Larissa garcia Type: BLOOD SPECIMENOrdering Facility: [facility] Address: [address] [place] [address] Result Comment: The [place] [employer] (ADA) provides guidance for cutoff values for fasting glucose and random glucose. The ADA defines fasting as no caloric intake for at least 8 hours. Fasting plasma glucose results between 100 to 125 mg/dL indicate increased risk for diabetes (prediabetes).Fasting plasma glucose results greater than or equal to 126 mg/dL meet the criteria for diagnosis of diabetes. In the absence of unequivocal hyperglycemia, results should be confirmed by repeat testing. In a patient with classic symptoms of hyperglycemia or hyperglycemic crisis, random plasma glucose results greater than or equal to 200 mg/dL meet the criteria for diagnosis of diabetes.Reference: Standards of Medical Care in Diabetes 2016, [place] [employer]. Diabetes Care. 2016.39(Suppl 1). Performed By: #### 2 777-1, 52364-6, 13353-7 ####[facility]ITALCLIA [id number] [place] [id number] [place] Potassium [Moles/Vol] 4.3 mmol/L Normal 3.7-5.1 [facility] Comment on above: Order Comment: Larissa garcia Type: BLOOD SPECIMENOrdering Facility: [facility] Address: [address] [place] [address] Performed By: #### 2 777-1, 21870-4, ####[facility] LABORATORYCLIA [id number] [place] [id number] [place] Sodium [Moles/Vol] 121 mmol/L Low 136-144 [facility] Comment on above: Order Comment: Speci men Type: BLOOD SPECIMENOrdering Facility: [facility] Address: [address] [place] [address] Performed By: #### 2 777-1, 15143-6, ####[facility] LABORATORYCLIA [id number] [place] [address] [place] Urea nitrogen [Mass/Vol] 13 mg/dL Normal 7-21 [facility] Comment on above: Order Comment: Speci men Type: BLOOD SPECIMENOrdering Facility: [facility] Address: [address] [place] [address] Performed By: #### 2 777-1, 40156-1, ####[facility] LABORATORYCLIA [id number] [address] [place] CASE MGT INIT ASSESon 2023 CASE MGT INIT ASSES Normal [facility] CBC panel Auto (Bld)on 07-24 Erythrocyte distribution width (RBC) [Ratio] 14.2 % Normal 11.5-15.0 [facility] Comment on above: Order Comment: Speci men Type: BLOOD SPECIMENOrdering Facility: [facility] Address: [address] [place] [address] Performed By: #### 5 8410-2 ####[facility] LABORATORYCLIA [id number] [address] [place] Hematocrit (Bld) [Volume fraction] 28.4 % Low 36.0-46.0 [facility] Comment on above: Order Comment: Speci men Type: BLOOD SPECIMENOrdering Facility: [facility] Address: [address] [place] [address] Performed By: #### 5 8410-2 ####[facility] LABORATORYCLIA [id number] [address] STATES OF [facility] Hemoglobin (Bld) [Mass/Vol] 9.8 g/dL Low 11.5-15.5 [facility] Comment on above: Order Comment: Speci men Type: BLOOD SPECIMENOrdering Facility: [facility] Address: [address] [place] [address] Performed By: #### 5 8410-2 ####[facility] LABORATORYCLIA [id number] [address] STATES OF [facility] MCH (RBC) [Entitic mass] 30.7 pg Normal 26.0-34.0 [facility] Comment on above: Order Comment: Speci men Type: BLOOD SPECIMENOrdering Facility: [facility] Address: [address] [place] [address] Performed By: #### 5 8410-2 ####[facility] LABORATORYCLIA [id number] [address] STATES OF [facility] MCHC (RBC) [Mass/Vol] 34.5 g/dL Normal 30.5-36.0 [facility] Comment on above: Order Comment: Speci men Type: BLOOD SPECIMENOrdering Facility: [facility] Address: [address] [place] [address] Performed By: #### 5 8410-2 ####[facility] LABORATORYCLIA [id number] [address] [place] MCV (RBC) [Entitic vol] 89.0 fL Normal 80.0-100.0 [facility] Comment on above: Order Comment: Speci men Type: BLOOD SPECIMENOrdering Facility: [facility] Address: [address] [place] [address] Performed By: #### 5 8410-2 ####[facility] LABORATORYCLIA [id number] [address] OF [facility] Nucleated RBC (Bld) [#/Vol] 10*3/uL Normal <0.01 [facility] Comment on above: Order Comment: Speci men Type: BLOOD SPECIMENOrdering Facility: [facility] Address: [address] [place] [address] Performed By: #### 5 8410-2 ####[facility] LABORATORYCLIA [id number] [place] [address] [place] Platelet mean volume (Bld) [Entitic vol] 8.1 fL Low 9.0-12.7 [facility] Comment on above: Order Comment: Speci men Type: BLOOD SPECIMENOrdering Facility: [facility] Address: [address] [place] [address] Performed By: #### 5 8410-2 ####[facility] LABORATORYCLIA [id number] [address] [place] Platelets (Bld) [#/Vol] 234 10*3/uL Normal 150-400 [facility] Comment on above: Order Comment: Speci men Type: BLOOD SPECIMENOrdering Facility: [facility] Address: [address] [place] [address] Performed By: #### 5 8410-2 ####[facility] LABORATORYCLIA [id number] [place] [address] [place] RBC (Bld) [#/Vol] 3.19 10*6/uL Low 3.90-5.20 [facility] Comment on above: Order Comment: Speci men Type: BLOOD SPECIMENOrdering Facility: [facility] Address: [address] [place] [address] Performed By: #### 5 8410-2 ####[facility] LABORATORYCLIA [id number] [place] [address] [place] WBC (Bld) [#/Vol] 8.09 10*3/uL Normal 3.70-11.00 [facility] Comment on above: Order Comment: Speci men Type: BLOOD SPECIMENOrdering Facility: [facility] Address: [address] [place] [address] Performed By: #### 5 8410-2 ####[facility] LABORATORYCLIA [id number] [place] [address] [place] CONSULT PROGon 07-24-2024 CONSULT PROG Normal [facility] CONSULT PROG Normal [facility] Magnesium SerPl-mCncon 07-24 Magnesium [Mass/Vol] 1.7 mg/dL Normal 1.7-2.3 [facility] Comment on above: Order Comment: Speci men Type: BLOOD SPECIMENOrdering Facility: [facility] Address: [address] [place] [address] Performed By: #### 2 777-1, 37409-3, ####[facility] LABORATORYCLIA [id number] [place] [address] [place] Osmolality SerPlon Osmolality [Osmolality] 274 mosm/kg Low 275-300 [facility] Comment on above: Order Comment: Speci men Type: BLOOD SPECIMENOrdering Facility: [facility] Address: [address] [place] [address] Performed By: #### 2 692-2 ####[facility]ITALCLIA [id number] [place] [address] [place] Osmolality Uron 07-24-2024 Osmolality (U) [Osmolality] 384 mosm/kg Normal 50-1200 [facility] Comment on above: Order Comment: Speci men Type: URINE SPECIMENOrdering Facility: [facility] Address: [address] [place] [address] Performed By: #### 3 5678-2, 2695-5 ####[facility] LABORATORYCLIA [id number] [place] [address] [place] Phosphate SerPl-mCncon 07-24 Phosphate [Mass/Vol] 3.4 mg/dL Normal 2.7-4.8 [facility] Comment on above: Order Comment: Speci men Type: BLOOD SPECIMENOrdering Facility: [facility] Address: [address] [place] [address] Performed By: #### 2 777-1, 19685-0, ####[facility] LABORATORYCLIA [id number] [place] [address] [place] Sodium ?Tm Ur-sCncon 024 Sodium Unsp time (U) [Moles/Vol] 64 mmol/L Normal 14-216 [facility] Comment on above: Order Comment: Speci men Type: URINE SPECIMENOrdering Facility: [facility] Address: [address] [place] [address] Performed By: #### 3 5678-2, 2695-5 ####[facility]ORATORYCLIA [id number] [place] [address] [place] Sodium SerPl-sCncon 07-24-20 24 Sodium [Moles/Vol] 124 mmol/L Low 136-144 [facility] Comment on above: Order Comment: Speci men Type: BLOOD SPECIMENOrdering Facility: [facility] Address: [address] [place] [address] Performed By: #### 2 951-2 ####[facility] LABORATORYCLIA [id number] [place] [address] [place] Sodium [Moles/Vol] 123 mmol/L Low 136-144 [facility] Comment on above: Order Comment: Speci men Type: BLOOD SPECIMENOrdering Facility: [facility] Address: [address] [place] [address] Performed By: #### 2 951-2 ####[facility] LABORATORYCLIA [id number] [place] [address] [place] THERAPY NTon 07-24-2024 THERAPY NT Normal [facility] THERAPY NT Normal [facility] Basic metabolic 2000 panelon 07-23-2024 Anion gap [Moles/Vol] 12 mmol/L Normal 8-15 [facility] Comment on above: Order Comment: Speci men Type: BLOOD SPECIMENOrdering Facility: [facility] Address: [address] [place] [address] Performed By: #### 1 9123-9, 59829-0, 2777-1 ####[facility] LABORATORYCLIA [id number] [address] STATES OF [facility] Calcium [Mass/Vol] 8.9 mg/dL Normal 8.5-10.2 [facility] Comment on above: Order Comment: Speci men Type: BLOOD SPECIMENOrdering Facility: [facility] Address: [address] [place] [address] Performed By: #### 1 9123-9, 72561-7, 2776- ####[facility] LABORATORYCLIA [id number] [place] [address] [place] Chloride [Moles/Vol] 94 mmol/L Low 98-107 [facility] Comment on above: Order Comment: Speci men Type: BLOOD SPECIMENOrdering Facility: [facility] Address: [address] [place] [address] Performed By: #### 1 9123-9, 67470-1, 2776- ####[facility]ORATORYCLIA [id number] [address] STATES OF [facility] CO2 [Moles/Vol] 24 mmol/L Normal 22-30 [facility] Comment on above: Order Comment: Speci men Type: BLOOD SPECIMENOrdering Facility: [facility] Address: [address] [place] [address] Performed By: #### 1 9123-9, 75602-6, 2776-08 ####[facility] LABORATORYCLIA [id number] [address] [place] Creatinine [Mass/Vol] 0.83 mg/dL Normal 0.58-0.96 [facility] Comment on above: Order Comment: Speci men Type: BLOOD SPECIMENOrdering Facility: [facility] Address: [address] [place] [address] Performed By: #### 1 9123-9, 90092-1, 2776- ####[facility] LABORATORYCLIA [id number] [address] [place] Creatinine and Glomerular filtration rate.predicted panel (S/P/Bld) 74 mL/min/1.73m??? Normal >=60 [facility] Comment on above: Order Comment: Larissa garcia Type: BLOOD SPECIMENOrdering Facility: [facility] Address: [address] [place] [address] Result Comment: Jany mated Glomerular Filtration Rate (eGFR) is calculated using the 2020 CKD-EPI creatinine equation. This equation utilizes serum creatinine, sex, and age as parameters. The creatinine assay has traceable calibration to isotope dilution-mass spectrometry. Refer to KDIGO guidelines for clinical interpretation. In patients with unstable renal function, e.g. those with acute kidney injury, the eGFR may not accurately reflect actual GFR. Performed By: #### 1 9123-9, 28418-0, 277- ####[facility] LABORATORYCLIA [id number] [place] [address] [place] Glucose [Mass/Vol] 159 mg/dL High 74-99 [facility] Comment on above: Order Comment: Larissa garcia Type: BLOOD SPECIMENOrdering Facility: [facility] Address: [address] [place] [address] Result Comment: The [place] [employer] (ADA) provides guidance for cutoff values for fasting glucose and random glucose. The ADA defines fasting as no caloric intake for at least 8 hours. Fasting plasma glucose results between 100 to 125 mg/dL indicate increased risk for diabetes (prediabetes).Fasting plasma glucose results greater than or equal to 126 mg/dL meet the criteria for diagnosis of diabetes. In the absence of unequivocal hyperglycemia, results should be confirmed by repeat testing. In a patient with classic symptoms of hyperglycemia or hyperglycemic crisis, random plasma glucose results greater than or equal to 200 mg/dL meet the criteria for diagnosis of diabetes.Reference: Standards of Medical Care in Diabetes 2016, [place] [employer]. Diabetes Care. 2016.39(Suppl 1). Performed By: #### 1 9123-9, 90268-9, 2776-08 ####[facility] LABORATORYCLIA [id number] [place] [address] [place] Potassium [Moles/Vol] 4.3 mmol/L Normal 3.7-5.1 [facility] Comment on above: Order Comment: Larissa garcia Type: BLOOD SPECIMENOrdering Facility: [facility] Address: [address] [place] [address] Performed By: #### 1 9123-9, 61667-4, 2777- ####[facility] LABORATORYCLIA [id number] [address] STATES [facility] Sodium [Moles/Vol] 130 mmol/L Low 136-144 [facility] Comment on above: Order Comment: Speci men Type: BLOOD SPECIMENOrdering Facility: [facility] Address: [address] [place] [address] Performed By: #### 1 9123-9, 84509-0, 2776- ####[facility]ORATORYCLIA [id number] [address] STATES [facility] Urea nitrogen [Mass/Vol] 12 mg/dL Normal 7-21 [facility] Comment on above: Order Comment: Speci men Type: BLOOD SPECIMENOrdering Facility: [facility] Address: [address] [place] [address] Performed By: #### 1 9123-9, 14779-6, 27701-30 ####[facility] LABORATORYCLIA [id number] [address] CBC panel Auto (Bld)on 07-23 Erythrocyte distribution width (RBC) [Ratio] 14.3 % Normal 11.5-15.0 [facility] Comment on above: Order Comment: Speci men Type: BLOOD SPECIMENOrdering Facility: [facility] Address: [address] [place] [address] Performed By: #### 5 8410-2 ####[facility] LABORATORYCLIA [id number] [address] STATES OF [facility] Hematocrit (Bld) [Volume fraction] 28.4 % Low 36.0-46.0 [facility] Comment on above: Order Comment: Speci men Type: BLOOD SPECIMENOrdering Facility: [facility] Address: [address] [place] [address] Performed By: #### 5 8410-2 ####[facility] LABORATORYCLIA [id number] [address] [place] Hemoglobin (Bld) [Mass/Vol] 9.7 g/dL Low 11.5-15.5 [facility] Comment on above: Order Comment: Speci men Type: BLOOD SPECIMENOrdering Facility: [facility] Address: [address] [place] [address] Performed By: #### 5 8410-2 ####[facility] LABORATORYCLIA [id number] [address] MCH (RBC) [Entitic mass] 30.4 pg Normal 26.0-34.0 [facility] Comment on above: Order Comment: Speci men Type: BLOOD SPECIMENOrdering Facility: [facility] Address: [address] [place] [address] Performed By: #### 5 8410-2 ####[facility] LABORATORYCLIA [id number] [address] MCHC (RBC) [Mass/Vol] 34.2 g/dL Normal 30.5-36.0 [facility] Comment on above: Order Comment: Speci men Type: BLOOD SPECIMENOrdering Facility: [facility] Address: [address] [place] [address] Performed By: #### 5 8410-2 ####[facility] LABORATORYCLIA [id number] [address] MCV (RBC) [Entitic vol] 89.0 fL Normal 80.0-100.0 [facility] Comment on above: Order Comment: Speci men Type: BLOOD SPECIMENOrdering Facility: [facility] Address: [address] [place] [address] Performed By: #### 5 8410-2 ####[facility] LABORATORYCLIA [id number] [address] Nucleated RBC (Bld) [#/Vol] 10*3/uL Normal <0.01 [facility] Comment on above: Order Comment: Speci men Type: BLOOD SPECIMENOrdering Facility: [facility] Address: [address] [place] [address] Performed By: #### 5 8410-2 ####[facility] LABORATORYCLIA [id number] [address] [place] Platelet mean volume (Bld) [Entitic vol] 8.2 fL Low 9.0-12.7 [facility] Comment on above: Order Comment: Speci men Type: BLOOD SPECIMENOrdering Facility: [facility] Address: [address] [place] [address] Performed By: #### 5 8410-2 ####[facility] LABORATORYCLIA [id number] [place] [address] [place] Platelets (Bld) [#/Vol] 214 10*3/uL Normal 150-400 [facility] Comment on above: Order Comment: Speci men Type: BLOOD SPECIMENOrdering Facility: [facility] Address: [address] [place] [address] Performed By: #### 5 8410-2 ####[facility] LABORATORYCLIA [id number] [place] [address] [place] RBC (Bld) [#/Vol] 3.19 10*6/uL Low 3.90-5.20 [facility] Comment on above: Order Comment: Speci men Type: BLOOD SPECIMENOrdering Facility: [facility] Address: [address] [place] [address] Performed By: #### 5 8410-2 ####[facility] LABORATORYCLIA [id number] [place] [address] [place] WBC (Bld) [#/Vol] 7.96 10*3/uL Normal 3.70-11.00 [facility] Comment on above: Order Comment: Speci men Type: BLOOD SPECIMENOrdering Facility: [facility] Address: [address] [place] [address] Performed By: #### 5 8410-2 ####[facility] LABORATORYCLIA [id number] [address] [place] CONSULTon 07-23-2024 CONSULT Normal [facility] CONSULT Normal [facility] Magnesium SerPl-mCncon 07-23 Magnesium [Mass/Vol] 1.7 mg/dL Normal 1.7-2.3 [facility] Comment on above: Order Comment: Speci men Type: BLOOD SPECIMENOrdering Facility: [facility] Address: [address] [place] [address] Performed By: #### 1 9123-9, 10930-2, 2777-1 ####[facility] LABORATORYCLIA [id number] [place] [address] [place] Phosphate SerPl-mCncon 07-23 Phosphate [Mass/Vol] 3.0 mg/dL Normal 2.7-4.8 [facility] Comment on above: Order Comment: Speci men Type: BLOOD SPECIMENOrdering Facility: [facility] Address: [address] [place] [address] Performed By: #### 1 9123-9, 67952-1, 2777-1 ####[facility] LABORATORYCLIA [id number] [place] [address] [place] THERAPY NTon 07-23-2024 THERAPY NT Normal [facility] Basic metabolic 2000 panelon 07-22-2024 Anion gap [Moles/Vol] 11 mmol/L Normal 8-15 [facility] Comment on above: Order Comment: Speci men Type: BLOOD SPECIMENOrdering Facility: [facility] Address: [address] [place] [address] Performed By: #### 2 4321-2 ####[facility] LABORATORYCLIA [id number] [place] [address] [place] Calcium [Mass/Vol] 8.2 mg/dL Low 8.5-10.2 [facility] Comment on above: Order Comment: Speci men Type: BLOOD SPECIMENOrdering Facility: [facility] Address: [address] [place] [address] Performed By: #### 2 4321-2 ####[facility] LABORATORYCLIA [id number] [place] [address] [place] Chloride [Moles/Vol] 97 mmol/L Low 98-107 [facility] Comment on above: Order Comment: Speci men Type: BLOOD SPECIMENOrdering Facility: [facility] Address: [address] [place] [address] Performed By: #### 2 4321-2 ####[facility] LABORATORYCLIA [id number] [address] OF [facility] CO2 [Moles/Vol] 23 mmol/L Normal 22-30 [facility] Comment on above: Order Comment: Speci men Type: BLOOD SPECIMENOrdering Facility: [facility] Address: [address] [place] [address] Performed By: #### 2 4321-2 ####[facility]ITALCLIA [id number] [address] Creatinine [Mass/Vol] 0.80 mg/dL Normal 0.58-0.96 [facility] Comment on above: Order Comment: Speci men Type: BLOOD SPECIMENOrdering Facility: [facility] Address: [address] [place] [address] Performed By: #### 2 4321-2 ####[facility]ITALCLIA [id number] [address] Creatinine and Glomerular filtration rate.predicted panel (S/P/Bld) 77 mL/min/1.73m??? Normal >=60 [facility] Comment on above: Order Comment: Speci men Type: BLOOD SPECIMENOrdering Facility: [facility] Address: [address] [place] [address] Result Comment: Jany mated Glomerular Filtration Rate (eGFR) is calculated using the 2020 CKD-EPI creatinine equation. This equation utilizes serum creatinine, sex, and age as parameters. The creatinine assay has traceable calibration to isotope dilution-mass spectrometry. Refer to KDIGO guidelines for clinical interpretation. In patients with unstable renal function, e.g. those with acute kidney injury, the eGFR may not accurately reflect actual GFR. Performed By: #### 2 4321-2 ####[facility] LABORATORYCLIA [id number] [place] [address] [place] Glucose [Mass/Vol] 253 mg/dL High 74-99 [facility] Comment on above: Order Comment: Speci men Type: BLOOD SPECIMENOrdering Facility: [facility] Address: [address] [place] [address] Result Comment: The [place] [employer] (ADA) provides guidance for cutoff values for fasting glucose and random glucose. The ADA defines fasting as no caloric intake for at least 8 hours. Fasting plasma glucose results between 100 to 125 mg/dL indicate increased risk for diabetes (prediabetes).Fasting plasma glucose results greater than or equal to 126 mg/dL meet the criteria for diagnosis of diabetes. In the absence of unequivocal hyperglycemia, results should be confirmed by repeat testing. In a patient with classic symptoms of hyperglycemia or hyperglycemic crisis, random plasma glucose results greater than or equal to 200 mg/dL meet the criteria for diagnosis of diabetes.Reference: Standards of Medical Care in Diabetes 2016, [place] [employer]. Diabetes Care. 2016.39(Suppl 1). Performed By: #### 2 4321-2 ####[facility] LABORATORYCLIA [id number] [place] [address] [place] Potassium [Moles/Vol] 4.3 mmol/L Normal 3.7-5.1 [facility] [facility] Comment on above: Order Comment: Speci men Type: BLOOD SPECIMENOrdering Facility: [facility] Address: [address] [place] [address] Performed By: #### 2 4321-2 ####[facility] LABORATORYCLIA [id number] [place] [address] [place] Sodium [Moles/Vol] 131 mmol/L Low 136-144 [facility] Comment on above: Order Comment: Speci men Type: BLOOD SPECIMENOrdering Facility: [facility] Address: [address] [place] [address] Performed By: #### 2 4321-2 ####[facility] LABORATORYCLIA [id number] [place] [address] [place] Urea nitrogen [Mass/Vol] 10 mg/dL Normal 7-21 [facility] Comment on above: Order Comment: Speci men Type: BLOOD SPECIMENOrdering Facility: [facility] Address: [address] [place] [address] Performed By: #### 2 4321-2 ####[facility] LABORATORYCLIA [id number] [place] [address] [place] Anion gap [Moles/Vol] 9 mmol/L Normal 8-15 [facility] Comment on above: Order Comment: Speci men Type: BLOOD SPECIMENOrdering Facility: [facility] Address: [address] [place] [address] Performed By: #### 1 9123-9, 17424-2, 2776- ####[facility] LABORATORYCLIA [id number] [place] [address] [place] Calcium [Mass/Vol] 8.6 mg/dL Normal 8.5-10.2 [facility] Comment on above: Order Comment: Speci men Type: BLOOD SPECIMENOrdering Facility: [facility] Address: [address] [place] [address] Performed By: #### 1 9123-9, 14387-6, 2776- ####[facility] LABORATORYCLIA [id number] [place] [address] [place] Chloride [Moles/Vol] 95 mmol/L Low 98-107 [facility] Comment on above: Order Comment: Speci men Type: BLOOD SPECIMENOrdering Facility: [facility] Address: [address] [place] [address] Performed By: #### 1 9123-9, 95724-3, 2776- ####[facility] LABORATORYCLIA [id number] [place] [address] [place] CO2 [Moles/Vol] 25 mmol/L Normal 22-30 [facility] Comment on above: Order Comment: Speci men Type: BLOOD SPECIMENOrdering Facility: [facility] Address: [address] [place] [address] Performed By: #### 1 9123-9, 92199-7, 2776- ####[facility] LABORATORYCLIA [id number] [address] STATES OF [facility] Creatinine [Mass/Vol] 0.88 mg/dL Normal 0.58-0.96 [facility] Comment on above: Order Comment: Larissa garcia Type: BLOOD SPECIMENOrdering Facility: [facility] Address: [address] [place] [address] Performed By: #### 1 9123-9, 56730-0, 2776-08 ####[facility] LABORATORYIA [id number] [address] Creatinine and Glomerular filtration rate.predicted panel (S/P/Bld) 69 mL/min/1.73m??? Normal >=60 [facility] Comment on above: Order Comment: Larissa garcia Type: BLOOD SPECIMENOrdering Facility: [facility] Address: [address] [place] [address] Result Comment: Jany mated Glomerular Filtration Rate (eGFR) is calculated using the 2020 CKD-EPI creatinine equation. This equation utilizes serum creatinine, sex, and age as parameters. The creatinine assay has traceable calibration to isotope dilution-mass spectrometry. Refer to KDIGO guidelines for clinical interpretation. In patients with unstable renal function, e.g. those with acute kidney injury, the eGFR may not accurately reflect actual GFR. Performed By: #### 1 9123-9, 99367-6, 2776-08 ####[facility] LABORATORYIA [id number] [address] Glucose [Mass/Vol] 204 mg/dL High 74-99 [facility] Comment on above: Order Comment: Larissa garcia Type: BLOOD SPECIMENOrdering Facility: [facility] Address: [address] [place] [address] Result Comment: The [place] [employer] (ADA) provides guidance for cutoff values for fasting glucose and random glucose. The ADA defines fasting as no caloric intake for at least 8 hours. Fasting plasma glucose results between 100 to 125 mg/dL indicate increased risk for diabetes (prediabetes).Fasting plasma glucose results greater than or equal to 126 mg/dL meet the criteria for diagnosis of diabetes. In the absence of unequivocal hyperglycemia, results should be confirmed by repeat testing. In a patient with classic symptoms of hyperglycemia or hyperglycemic crisis, random plasma glucose results greater than or equal to 200 mg/dL meet the criteria for diagnosis of diabetes.Reference: Standards of Medical Care in Diabetes 2016, [place] [employer]. Diabetes Care. 2016.39(Suppl 1). Performed By: #### 1 9123-9, 47730-6, 2776- ####[facility] LABORATORYCLIA [id number] [address] STATES OF [facility] Potassium [Moles/Vol] 4.3 mmol/L Normal 3.7-5.1 [facility] Comment on above: Order Comment: Speci men Type: BLOOD SPECIMENOrdering Facility: [facility] Address: [address] [place] [address] Performed By: #### 1 9123-9, 00148-8, 2776-08 ####[facility] LABORATORYCLIA [id number] [address] STATES OF [facility] Sodium [Moles/Vol] 129 mmol/L Low 136-144 [facility] Comment on above: Order Comment: Speci men Type: BLOOD SPECIMENOrdering Facility: [facility] Address: [address] [place] [address] Performed By: #### 1 9123-9, 40677-1, 2776-08 ####[facility] LABORATORYCLIA [id number] [address] STATES OF [facility] Urea nitrogen [Mass/Vol] 12 mg/dL Normal 7- [facility] Comment on above: Order Comment: Speci men Type: BLOOD SPECIMENOrdering Facility: [facility] Address: [address] [place] [address] Performed By: #### 1 9123-9, 03518-5, 2776-08 ####[facility] LABORATORYCLIA [id number] [address] [place] CBC panel Auto (Bld)on 07-22 Erythrocyte distribution width (RBC) [Ratio] 13.6 % Normal 11.5-15.0 [facility] Comment on above: Order Comment: Speci men Type: BLOOD SPECIMENOrdering Facility: [facility] Address: [address] [place] [address] Performed By: #### 5 8410-2 ####[facility] LABORATORYCLIA [id number] [address] Hematocrit (Bld) [Volume fraction] 24.5 % Low 36.0-46.0 [facility] Comment on above: Order Comment: Speci men Type: BLOOD SPECIMENOrdering Facility: [facility] Address: [address] [place] [address] Performed By: #### 5 8410-2 ####[facility] LABORATORYCLIA [id number] [address] OF [facility] Hemoglobin (Bld) [Mass/Vol] 8.4 g/dL Low 11.5-15.5 [facility] Comment on above: Order Comment: Speci men Type: BLOOD SPECIMENOrdering Facility: [facility] Address: [address] [place] [address] Performed By: #### 5 8410-2 ####[facility] LABORATORYCLIA [id number] [address] STATES OF [facility] MCH (RBC) [Entitic mass] 30.8 pg Normal 26.0-34.0 [facility] Comment on above: Order Comment: Speci men Type: BLOOD SPECIMENOrdering Facility: [facility] Address: [address] [place] [address] Performed By: #### 5 8410-2 ####[facility] LABORATORYCLIA [id number] [address] [place] MCHC (RBC) [Mass/Vol] 34.3 g/dL Normal 30.5-36.0 [facility] Comment on above: Order Comment: Speci men Type: BLOOD SPECIMENOrdering Facility: [facility] Address: [address] [place] [address] Performed By: #### 5 8410-2 ####[facility] LABORATORYCLIA [id number] [address] MCV (RBC) [Entitic vol] 89.7 fL Normal 80.0-100.0 [facility] Comment on above: Order Comment: Speci men Type: BLOOD SPECIMENOrdering Facility: [facility] Address: [address] [place] [address] Performed By: #### 5 8410-2 ####[facility] LABORATORYCLIA [id number] [address] [place] Nucleated RBC (Bld) [#/Vol] 10*3/uL Normal <0.01 [facility] Comment on above: Order Comment: Speci men Type: BLOOD SPECIMENOrdering Facility: [facility] Address: [address] [place] [address] Performed By: #### 5 8410-2 ####[facility] LABORATORYCLIA [id number] [address] [place] Platelet mean volume (Bld) [Entitic vol] 8.3 fL Low 9.0-12.7 [facility] Comment on above: Order Comment: Speci men Type: BLOOD SPECIMENOrdering Facility: [facility] Address: [address] [place] [address] Performed By: #### 5 8410-2 ####[facility] LABORATORYCLIA [id number] [address] [place] Platelets (Bld) [#/Vol] 205 10*3/uL Normal 150-400 [facility] Comment on above: Order Comment: Speci men Type: BLOOD SPECIMENOrdering Facility: [facility] Address: [address] [place] [address] Performed By: #### 5 8410-2 ####[facility] LABORATORYCLIA [id number] [address] [place] RBC (Bld) [#/Vol] 2.73 10*6/uL Low 3.90-5.20 [facility] Comment on above: Order Comment: Speci men Type: BLOOD SPECIMENOrdering Facility: [facility] Address: [address] [place] [address] Performed By: #### 5 8410-2 ####[facility] LABORATORYCLIA [id number] [place] [address] [place] WBC (Bld) [#/Vol] 7.99 10*3/uL Normal 3.70-11.00 [facility] Comment on above: Order Comment: Speci men Type: BLOOD SPECIMENOrdering Facility: [facility] Address: [address] [place] [address] Performed By: #### 5 8410-2 ####[facility] LABORATORYCLIA [id number] [place] [address] [place] Magnesium SerPl-mCncon 07-22 Magnesium [Mass/Vol] 1.9 mg/dL Normal 1.7-2.3 [facility] Comment on above: Order Comment: Speci men Type: BLOOD SPECIMENOrdering Facility: [facility] Address: [address] [place] [address] Performed By: #### 1 9123-9, 09918-3, 2777-1 ####[facility] LABORATORYCLIA [id number] [place] [address] [place] Phosphate SerPl-mCncon 07-22 Phosphate [Mass/Vol] 3.7 mg/dL Normal 2.7-4.8 [facility] Comment on above: Order Comment: Speci men Type: BLOOD SPECIMENOrdering Facility: [facility] Address: [address] [place] [address] Performed By: #### 1 9123-9, 81728-5, 2777-1 ####[facility] LABORATORYCLIA [id number] [place] [address] [place] THERAPY NTon 07-22-2024 THERAPY NT Normal [facility] XR CERVICAL 2V AP/LATon 07-03 XR CERVICAL 2V AP/LAT Normal [facility] ANES POSTPROC EVALon 024 ANES POSTPROC EVAL Normal [facility] ANES PRE-OPon 07-21-2024 ANES PRE-OP Normal [facility] Basic metabolic 2000 panelon 07-21-2024 Anion gap [Moles/Vol] 10 mmol/L Normal 8-15 [facility] Comment on above: Order Comment: Speci men Type: BLOOD SPECIMENOrdering Facility: [facility] Address: [address] [place] [address] Performed By: #### 2 4321-2, , 2776-08 ####[facility]ORATORYCLIA [id number] [place] [address] [place] Calcium [Mass/Vol] 8.7 mg/dL Normal 8.5-10.2 [facility] Comment on above: Order Comment: Speci men Type: BLOOD SPECIMENOrdering Facility: [facility] Address: [address] [place] [address] Performed By: #### 2 4321-2, , 2776-08 ####[facility] LABORATORYCLIA [id number] [place] [address] [place] Chloride [Moles/Vol] 99 mmol/L Normal 98-107 [facility] Comment on above: Order Comment: Speci men Type: BLOOD SPECIMENOrdering Facility: [facility] Address: [address] [place] [address] Performed By: #### 2 4321-2, , 2776-08 ####[facility] LABORATORYCLIA [id number] [place] [address] [place] CO2 [Moles/Vol] 21 mmol/L Low 22-30 [facility] Comment on above: Order Comment: Speci men Type: BLOOD SPECIMENOrdering Facility: [facility] Address: [address] [place] [address] Performed By: #### 2 4321-2, , 2776-08 ####[facility] LABORATORYCLIA [id number] [place] [id number] [place] Creatinine [Mass/Vol] 0.91 mg/dL Normal 0.58-0.96 [facility] Comment on above: Order Comment: Speci men Type: BLOOD SPECIMENOrdering Facility: [facility] Address: [address] [place] [address] Performed By: #### 2 4321-2, 54734-5, 1 ####[facility] LABORATORYCLIA [id number] [place] [id number] [place] Creatinine and Glomerular filtration rate.predicted panel (S/P/Bld) 66 mL/min/1.73m??? Normal >=60 [facility] Comment on above: Order Comment: Larissa garcia Type: BLOOD SPECIMENOrdering Facility: [facility] Address: [address] [place] [address] Result Comment: Jany mated Glomerular Filtration Rate (eGFR) is calculated using the 2020 CKD-EPI creatinine equation. This equation utilizes serum creatinine, sex, and age as parameters. The creatinine assay has traceable calibration to isotope dilution-mass spectrometry. Refer to KDIGO guidelines for clinical interpretation. In patients with unstable renal function, e.g. those with acute kidney injury, the eGFR may not accurately reflect actual GFR. Performed By: #### 2 4321-2, 34945-4, 27701-30 ####[facility] LABORATORYCLIA [id number] [place] [id number] [place] Glucose [Mass/Vol] 308 mg/dL High 74-99 [facility] Comment on above: Order Comment: Larissa garcia Type: BLOOD SPECIMENOrdering Facility: [facility] Address: [address] [place] [address] Result Comment: The [place] [employer] (ADA) provides guidance for cutoff values for fasting glucose and random glucose. The ADA defines fasting as no caloric intake for at least 8 hours. Fasting plasma glucose results between 100 to 125 mg/dL indicate increased risk for diabetes (prediabetes).Fasting plasma glucose results greater than or equal to 126 mg/dL meet the criteria for diagnosis of diabetes. In the absence of unequivocal hyperglycemia, results should be confirmed by repeat testing. In a patient with classic symptoms of hyperglycemia or hyperglycemic crisis, random plasma glucose results greater than or equal to 200 mg/dL meet the criteria for diagnosis of diabetes.Reference: Standards of Medical Care in Diabetes 2016, [place] [employer]. Diabetes Care. 2016.39(Suppl 1). Performed By: #### 2 4321-2, , 2776-08 ####[facility] LABORATORYCLIA [id number] [place] [address] [place] Potassium [Moles/Vol] 4.9 mmol/L Normal 3.7-5.1 [facility] Comment on above: Order Comment: Speci men Type: BLOOD SPECIMENOrdering Facility: [facility] Address: [address] [place] [address] Performed By: #### 2 4321-2, , 2776-08 ####[facility] LABORATORYCLIA [id number] [address] STATES OF [facility] Sodium [Moles/Vol] 130 mmol/L Low 136-144 [facility] Comment on above: Order Comment: Speci men Type: BLOOD SPECIMENOrdering Facility: [facility] Address: [address] [place] [address] Performed By: #### 2 4321-2, , 2776-08 ####[facility] LABORATORYCLIA [id number] [address] STATES OF [facility] Urea nitrogen [Mass/Vol] 14 mg/dL Normal 7-21 [facility] Comment on above: Order Comment: Speci men Type: BLOOD SPECIMENOrdering Facility: [facility] Address: [address] [place] [address] Performed By: #### 2 4321-2, , 2776-08 ####[facility] LABORATORYCLIA [id number] [address] [place] CBC panel Auto (Bld)on 07-21 Erythrocyte distribution width (RBC) [Ratio] 13.7 % Normal 11.5-15.0 [facility] Comment on above: Order Comment: Speci men Type: BLOOD SPECIMENOrdering Facility: [facility] Address: [address] [place] [address] Performed By: #### 5 8410-2 ####[facility] LABORATORYCLIA [id number] [address] STATES OF [facility] Hematocrit (Bld) [Volume fraction] 27.7 % Low 36.0-46.0 [facility] Comment on above: Order Comment: Speci men Type: BLOOD SPECIMENOrdering Facility: [facility] Address: [address] [place] [address] Performed By: #### 5 8410-2 ####[facility] LABORATORYCLIA [id number] [address] [place] Hemoglobin (Bld) [Mass/Vol] 9.2 g/dL Low 11.5-15.5 [facility] Comment on above: Order Comment: Speci men Type: BLOOD SPECIMENOrdering Facility: [facility] Address: [address] [place] [address] Performed By: #### 5 8410-2 ####[facility] LABORATORYCLIA [id number] [address] STATES OF [facility] MCH (RBC) [Entitic mass] 30.5 pg Normal 26.0-34.0 [facility] Comment on above: Order Comment: Speci men Type: BLOOD SPECIMENOrdering Facility: [facility] Address: [address] [place] [address] Performed By: #### 5 8410-2 ####[facility] LABORATORYCLIA [id number] [address] [place] MCHC (RBC) [Mass/Vol] 33.2 g/dL Normal 30.5-36.0 [facility] Comment on above: Order Comment: Speci men Type: BLOOD SPECIMENOrdering Facility: [facility] Address: [address] [place] [address] Performed By: #### 5 8410-2 ####[facility] LABORATORYCLIA [id number] [address] MCV (RBC) [Entitic vol] 91.7 fL Normal 80.0-100.0 [facility] Comment on above: Order Comment: Speci men Type: BLOOD SPECIMENOrdering Facility: [facility] Address: [address] [place] [address] Performed By: #### 5 8410-2 ####[facility] LABORATORYCLIA [id number] [place] [address] [place] Nucleated RBC (Bld) [#/Vol] 10*3/uL Normal <0.01 [facility] Comment on above: Order Comment: Speci men Type: BLOOD SPECIMENOrdering Facility: [facility] Address: [address] [place] [address] Performed By: #### 5 8410-2 ####[facility] LABORATORYCLIA [id number] [address] [place] Platelet mean volume (Bld) [Entitic vol] 8.5 fL Low 9.0-12.7 [facility] Comment on above: Order Comment: Speci men Type: BLOOD SPECIMENOrdering Facility: [facility] Address: [address] [place] [address] Performed By: #### 5 8410-2 ####[facility] LABORATORYCLIA [id number] [address] [place] Platelets (Bld) [#/Vol] 196 10*3/uL Normal 150-400 [facility] Comment on above: Order Comment: Speci men Type: BLOOD SPECIMENOrdering Facility: [facility] Address: [address] [place] [address] Performed By: #### 5 8410-2 ####[facility] LABORATORYCLIA [id number] [address] [place] RBC (Bld) [#/Vol] 3.02 10*6/uL Low 3.90-5.20 [facility] Comment on above: Order Comment: Speci men Type: BLOOD SPECIMENOrdering Facility: [facility] Address: [address] [place] [address] Performed By: #### 5 8410-2 ####[facility] LABORATORYCLIA [id number] [place] [address] [place] WBC (Bld) [#/Vol] 6.59 10*3/uL Normal 3.70-11.00 [facility] Comment on above: Order Comment: Speci men Type: BLOOD SPECIMENOrdering Facility: [facility] Address: [address] [place] [address] Performed By: #### 5 8410-2 ####[facility] [id number] [address] HISTORY PHYSICALon HISTORY PHYSICAL Normal [facility] Magnesium SerPl-mCncon 07-21 Magnesium [Mass/Vol] 1.4 mg/dL Low 1.7-2.3 [facility] Comment on above: Order Comment: Speci men Type: BLOOD SPECIMENOrdering Facility: [facility] Address: [address] [place] [address] Performed By: #### 2 4321-2, , 2776- ####[facility]CL[facility] [id number] [address] OPERATIVE NOon 07-21-2024 OPERATIVE NO Normal [facility] Phosphate SerPl-mCncon 07-21 Phosphate [Mass/Vol] 3.6 mg/dL Normal 2.7-4.8 [facility] Comment on above: Order Comment: Speci men Type: BLOOD SPECIMENOrdering Facility: [facility] Address: [address] [place] [address] Performed By: #### 2 4321-2, , 2776- ####[facility]ITALCLIA [id number] [address] STAPHYLOCOCCUS AUREUS AND MR SA SCREEN, PCR, NASALon 07-21-2024 S. aureus and MRSA panel CHA+probe (Nose) Methicillin-SUSCEPTIBL E Staphylococcus aureus Detected Abnormal Not Detected [facility] Comment on above: Order Comment: Speci men Type: SWABOrdering Facility: [facility] Address: [address] [place] [address] Performed By: #### S APCR ####[facility]CLIA [id number] [address] [place] XR CERVICAL 2V AP/LATon 07-03 XR CERVICAL 2V AP/LAT Normal [facility] XR VERIFY LEVEL [id number]-[id number] 07-21-2024 XR VERIFY LEVEL C-SPINE-NB Normal [facility] CNPNon 07-20-2024 CNPN Normal [facility] CNCOon 07-12-2024 CNCO Letter Text Normal [facility] CNPNon 07-12-2024 CNPN Normal [facility] NURSING PROGon 07-10-2024 NURSING PROG Normal [facility] NURSING PROG Normal [facility] Bacteria Ur Culton Bacteria identified Cx Nom (U) ORGANISM ID: 1 <10,000 CFU/ml Gram negative bacilli Insignificant colony count. No further workup. Normal [facility] Comment on above: Performed By: #### 6 30-4 ####[facility] LABORATORYCLIA [id number] [address] STATES OF [facility] CBC panel Auto (Bld)on 07-07 Erythrocyte distribution width (RBC) [Ratio] 14.0 % Normal 11.5-15.0 [facility] Comment on above: Order Comment: Speci men Type: BLOOD SPECIMENOrdering Facility: [facility] Address: [address] [place] [address] Performed By: #### 5 8410-2 ####[facility] LABORATORYCLIA [id number] [address] [place] Hematocrit (Bld) [Volume fraction] 33.6 % Low 36.0-46.0 [facility] Comment on above: Order Comment: Speci men Type: BLOOD SPECIMENOrdering Facility: [facility] Address: [address] [place] [address] Performed By: #### 5 8410-2 ####[facility] LABORATORYCLIA [id number] [address] [place] Hemoglobin (Bld) [Mass/Vol] 11.0 g/dL Low 11.5-15.5 [facility] Comment on above: Order Comment: Speci men Type: BLOOD SPECIMENOrdering Facility: [facility] Address: [address] [place] [address] Performed By: #### 5 8410-2 ####[facility] LABORATORYCLIA [id number] [address] MCH (RBC) [Entitic mass] 30.9 pg Normal 26.0-34.0 [facility] Comment on above: Order Comment: Speci men Type: BLOOD SPECIMENOrdering Facility: [facility] Address: [address] [place] [address] Performed By: #### 5 8410-2 ####[facility] [facility] LAB[facility]ATORYCLIA [id number] [address] MCHC (RBC) [Mass/Vol] 32.7 g/dL Normal 30.5-36.0 [facility] Comment on above: Order Comment: Speci men Type: BLOOD SPECIMENOrdering Facility: [facility] Address: [address] [place] [address] Performed By: #### 5 8410-2 ####[facility] LABORATORYCLIA [id number] [address] MCV (RBC) [Entitic vol] 94.4 fL Normal 80.0-100.0 [facility] Comment on above: Order Comment: Speci men Type: BLOOD SPECIMENOrdering Facility: [facility] Address: [address] [place] [address] Performed By: #### 5 8410-2 ####[facility] LABORATORYCLIA [id number] [address] Nucleated RBC (Bld) [#/Vol] 10*3/uL Normal <0.01 [facility] Comment on above: Order Comment: Speci men Type: BLOOD SPECIMENOrdering Facility: [facility] Address: [address] [place] [address] Performed By: #### 5 8410-2 ####[facility] LABORATORYCLIA [id number] [address] Platelet mean volume (Bld) [Entitic vol] 8.6 fL Low 9.0-12.7 [facility] Comment on above: Order Comment: Speci men Type: BLOOD SPECIMENOrdering Facility: [facility] Address: [address] [place] [address] Performed By: #### 5 8410-2 ####[facility] LABORATORYCLIA [id number] [place] [address] [place] Platelets (Bld) [#/Vol] 302 10*3/uL Normal 150-400 [facility] Comment on above: Order Comment: Speci men Type: BLOOD SPECIMENOrdering Facility: [facility] Address: [address] [place] [address] Performed By: #### 5 8410-2 ####[facility] LABORATORYCLIA [id number] [address] STATES OF [facility] RBC (Bld) [#/Vol] 3.56 10*6/uL Low 3.90-5.20 [facility] Comment on above: Order Comment: Speci men Type: BLOOD SPECIMENOrdering Facility: [facility] Address: [address] [place] [address] Performed By: #### 5 8410-2 ####[facility] LABORATORYCLIA [id number] [address] [place] WBC (Bld) [#/Vol] 6.79 10*3/uL Normal 3.70-11.00 [facility] Comment on above: Order Comment: Speci men Type: BLOOD SPECIMENOrdering Facility: [facility] Address: [address] [place] [address] Performed By: #### 5 8410-2 ####[facility] LABORATORYCLIA [id number] [address] OF [facility] Comprehensive metabolic 2000 panelon 07-07-2024 Albumin [Mass/Vol] 4.0 g/dL Normal 3.9-4.9 [facility] Comment on above: Order Comment: Speci men Type: BLOOD SPECIMENOrdering Facility: [facility] Address: [address] [place] [address] Performed By: #### 2 4323-8 ####[facility] LABORATORYCLIA [id number] [address] ALP [Catalytic activity/Vol] 75 U/L Normal 34-123 [facility] Comment on above: Order Comment: Speci men Type: BLOOD SPECIMENOrdering Facility: [facility] Address: [address] [place] [address] Performed By: #### 2 4323-8 ####[facility] LABORATORYCLIA [id number] [address] [place] ALT With P-5'-P [Catalytic activity/Vol] 65 U/L High 7-38 [facility] Comment on above: Order Comment: Speci men Type: BLOOD SPECIMENOrdering Facility: [facility] Address: [address] [place] [address] Performed By: #### 2 4323-8 ####[facility] LABORATORYCLIA [id number] [address] Anion gap [Moles/Vol] 10 mmol/L Normal 8-15 [facility] Comment on above: Order Comment: Speci men Type: BLOOD SPECIMENOrdering Facility: [facility] Address: [address] [place] [address] Performed By: #### 2 4323-8 ####[facility] LABORATORYCLIA [id number] [address] OF [place] AST With P-5'-P [Catalytic activity/Vol] 112 U/L High 13-35 [facility] Comment on above: Order Comment: Speci men Type: BLOOD SPECIMENOrdering Facility: [facility] Address: [address] [place] [address] Performed By: #### 2 4323-8 ####[facility] LABORATORYCLIA [id number] [address] [place] Bilirubin [Mass/Vol] 0.3 mg/dL Normal 0.2-1.3 [facility] Comment on above: Order Comment: Speci men Type: BLOOD SPECIMENOrdering Facility: [facility] Address: [address] [place] [address] Performed By: #### 2 4323-8 ####[facility] LABORATORYCLIA [id number] [place] [address] [place] Calcium [Mass/Vol] 9.6 mg/dL Normal 8.5-10.2 [facility] Comment on above: Order Comment: Speci men Type: BLOOD SPECIMENOrdering Facility: [facility] Address: [address] [place] [address] Performed By: #### 2 4323-8 ####[facility] LABORATORYCLIA [id number] [place] [address] [place] Chloride [Moles/Vol] 97 mmol/L Low 98-107 [facility] Comment on above: Order Comment: Speci men Type: BLOOD SPECIMENOrdering Facility: [facility] Address: [address] [place] [address] Performed By: #### 2 4323-8 ####[facility] LABORATORYCLIA [id number] [place] [address] [place] CO2 [Moles/Vol] 26 mmol/L Normal 22-30 [facility] Comment on above: Order Comment: Speci men Type: BLOOD SPECIMENOrdering Facility: [facility] Address: [address] [place] [address] Performed By: #### 2 4323-8 ####[facility] LABORATORYCLIA [id number] [place] [address] [place] Creatinine [Mass/Vol] 0.98 mg/dL High 0.58-0.96 [facility] Comment on above: Order Comment: Speci men Type: BLOOD SPECIMENOrdering Facility: [facility] Address: [address] [place] [address] Performed By: #### 2 4323-8 ####[facility] LABORATORYCLIA [id number] [address] OF [place] Creatinine and Glomerular filtration rate.predicted panel (S/P/Bld) 60 mL/min/1.73m??? Normal >=60 [facility] Comment on above: Order Comment: Larissa garcia Type: BLOOD SPECIMENOrdering Facility: [facility] Address: [address] [place] [address] Result Comment: Jany mated Glomerular Filtration Rate (eGFR) is calculated using the 2020 CKD-EPI creatinine equation. This equation utilizes serum creatinine, sex, and age as parameters. The creatinine assay has traceable calibration to isotope dilution-mass spectrometry. Refer to KDIGO guidelines for clinical interpretation. In patients with unstable renal function, e.g. those with acute kidney injury, the eGFR may not accurately reflect actual GFR. Performed By: #### 2 4323-8 ####[facility] LABORATORYCLIA [id number] [place] [address] [place] Glucose [Mass/Vol] 70 mg/dL Low 74-99 [facility] Comment on above: Order Comment: Larissa garcia Type: BLOOD SPECIMENOrdering Facility: [facility] Address: [address] [place] [address] Result Comment: The [place] Diabetes [employer] (ADA) provides guidance for cutoff values for fasting glucose and random glucose. The ADA defines fasting as no caloric intake for at least 8 hours. Fasting plasma glucose results between 100 to 125 mg/dL indicate increased risk for diabetes (prediabetes).Fasting plasma glucose results greater than or equal to 126 mg/dL meet the criteria for diagnosis of diabetes. In the absence of unequivocal hyperglycemia, results should be confirmed by repeat testing. In a patient with classic symptoms of hyperglycemia or hyperglycemic crisis, random plasma glucose results greater than or equal to 200 mg/dL meet the criteria for diagnosis of diabetes.Reference: Standards of Medical Care in Diabetes 2016, [place] [employer]. Diabetes Care. 2016.39(Suppl 1). Performed By: #### 2 4323-8 ####[facility] LABORATORYCLIA [id number] [place] [address] [place] Potassium [Moles/Vol] 4.2 mmol/L Normal 3.7-5.1 [facility] Comment on above: Order Comment: Larissa garcia Type: BLOOD SPECIMENOrdering Facility: [facility] Address: [address] [place] [address] Performed By: #### 2 4323-8 ####[facility] LABORATORYCLIA [id number] [address] STATES [facility] Protein [Mass/Vol] 7.5 g/dL Normal 6.3-8.0 [facility] Comment on above: Order Comment: Speci men Type: BLOOD SPECIMENOrdering Facility: [facility] Address: [address] [place] [address] Performed By: #### 2 4323-8 ####[facility] LABORATORYCLIA [id number] [address] [place] Sodium [Moles/Vol] 133 mmol/L Low 136-144 [facility] Comment on above: Order Comment: Speci men Type: BLOOD SPECIMENOrdering Facility: [facility] Address: [address] [place] [address] Performed By: #### 2 4323-8 ####[facility] LABORATORYCLIA [id number] [address] STATES [facility] Urea nitrogen [Mass/Vol] 17 mg/dL Normal 7-21 [facility] Comment on above: Order Comment: Speci men Type: BLOOD SPECIMENOrdering Facility: [facility] Address: [address] [place] [address] Performed By: #### 2 4323-8 ####[facility] LABORATORYCLIA [id number] [address] [place] HISTORY PHYSICALon HISTORY PHYSICAL Normal [facility] HbA1c (Bld)on 07-07-2024 Average glucose Estimated from glycated hemoglobin (Bld) [Mass/Vol] 177 mg/dL Normal [facility] Comment on above: Order Comment: Speci men Type: BLOOD SPECIMENOrdering Facility: [facility] Address: [address] [place] [address] Result Comment: eAG: (Estimated average glucose) is a calculated value from HgbA1c and is computer help desk representative of the average blood glucose level in the last 2-3 month period. Performed By: #### 5 5454-3 ####[facility] LABCLIA [id number] [place] [address] [place] HbA1c (Bld) [Mass fraction] 7.8 % High 4.3-5.6 [facility] Comment on above: Order Comment: Larissa garcia Type: BLOOD SPECIMENOrdering Facility: [facility] Address: [address] [place] [address] Result Comment: [place] Diabetes Association guidelines indicate that patients with HgbA1c in the range 5.7-6.4% are at increased risk for development of diabetes, and intervention by lifestyle modification may be beneficial. HgbA1c greater or equal to 6.5% is considered diagnostic of diabetes. Performed By: #### 5 5454-3 ####[facility] LABCLIA [id number] [address] [place] PT panel Coag (PPP)on 2023 INR Coag (PPP) [Relative time] 1.1 {INR} Normal 0.9-1.3 [facility] Comment on above: Order Comment: Larissa garcia Type: BLOOD SPECIMENOrdering Facility: [facility] Address: [address] [place] [address] Result Comment: Aviva min K Antagonist (VKA) Therapeutic Range: INR 2 to 3 (Target INR of 2.5)Note: For patients treated with VKA drugs, such as warfarin, the [place] [employer] 2012 Guideline recommends a therapeutic INR range of 2 to 3 (target INR of 2.5). This recommendation includes high-risk patients with antiphospholipid syndrome with previous arterial or venous thromboembolism, current-generation mechanical or bioprosthetic aortic heart valve replacement.Note: Patients with mechanical aortic valve replacement and additional risk factors for thromboembolic events (atrial fibrillation, previous thromboembolism, LV dysfunction, hypercoagulable conditions) or an older generation mechanical AVR (i.e., ball in-Cage) or any mechanical MVR should have a INR therapeutic range of 2.5 to 3.5 (target INR of 3).Arthur GH, et al. Chest 2012, 141:7S-47SNishradha RA, et al. [facility] 2017, 70: 252-289 Performed By: #### 3 4528-0, 08496-3 ####[facility] LABCLIA [id number] [place] [address] [facility] PT Coag (PPP) [Time] 11.8 s Normal <13.1 [facility] Comment on above: Order Comment: Speci men Type: BLOOD SPECIMENOrdering Facility: [facility] Address: [address] [place] [address] Performed By: #### 3 4528-0, 40382-4 ####[facility] LABCLIA [id number] [place] [address] [facility] STAPHYLOCOCCUS AUREUS AND MR SA SCREEN, PCR, NASALon 07-07-2024 S. aureus and MRSA panel CHA+probe (Nose) Methicillin-SUSCEPTIBL E Staphylococcus aureus Detected Abnormal Not Detected [facility] Comment on above: Order Comment: Speci men Type: SWABOrdering Facility: [facility] Address: [address] [place] [address] Performed By: #### S APCR ####[facility] LABORATORYCLIA [id number] [address] TYPE AND SCREEN,30 DAYon ABO O Normal [facility] Comment on above: Order Comment: Speci men Type: BLOOD SPECIMENOrdering Facility: [facility] Address: [address] [place] [address] Performed By: #### T SCR30 ####[facility] BLOOD BANKCLIA [id number] [address] OF [facility] Rh Nom (Bld) Positive Normal [facility] Comment on above: Order Comment: Speci men Type: BLOOD SPECIMENOrdering Facility: [facility] Address: [address] [place] [address] Performed By: #### T SCR30 ####[facility] BLOOD BANKCLIA [id number] [address] [place] Urinalysis complete panel (U )on 07-07-2024 Bilirubin Ql (U) Negative Normal Negative [facility] Comment on above: Order Comment: Speci men Type: URINE SPECIMENOrdering Facility: [facility] Address: [address] [place] [address] Performed By: #### 2 4356-8 ####[facility] LABORATORYCLIA [id number] [address] [place] Clarity (Unsp spec) Slightly Cloudy Abnormal Clear [facility] Comment on above: Order Comment: Speci men Type: URINE SPECIMENOrdering Facility: [facility] Address: [address] [place] [address] Performed By: #### 2 4356-8 ####[facility] LABORATORYCLIA [id number] [address] STATES OF [facility] Color (U) Yellow Normal Yellow [facility] Comment on above: Order Comment: Speci men Type: URINE SPECIMENOrdering Facility: [facility] Address: [address] [place] [address] Performed By: #### 2 4356-8 ####[facility] LABORATORYCLIA [id number] [address] OF [place] Glucose Test strip (U) [Mass/Vol] Negative Normal Negative [facility] Comment on above: Order Comment: Speci men Type: URINE SPECIMENOrdering Facility: [facility] Address: [address] [place] [address] Performed By: #### 2 4356-8 ####[facility] LABORATORYCLIA [id number] [place] [address] [place] Hemoglobin Ql (U) 1+ Abnormal Negative [facility] Comment on above: Order Comment: Speci men Type: URINE SPECIMENOrdering Facility: [facility] Address: [address] [place] [address] Performed By: #### 2 4356-8 ####[facility] LABORATORYCLIA [id number] [address] OF [place] Ketones Ql (U) Negative Normal Negative [facility] Comment on above: Order Comment: Speci men Type: URINE SPECIMENOrdering Facility: [facility] Address: [address] [place] [address] Performed By: #### 2 4356-8 ####[facility] LABORATORYCLIA [id number] [address] Leukocyte esterase Test strip Ql (U) 1+ Abnormal Negative [facility] Comment on above: Order Comment: Speci men Type: URINE SPECIMENOrdering Facility: [facility] Address: [address] [place] [address] Performed By: #### 2 4356-8 ####[facility] LABORATORYCLIA [id number] [address] STATES [facility] Nitrite Ql (U) Negative Normal Negative [facility] Comment on above: Order Comment: Speci men Type: URINE SPECIMENOrdering Facility: [facility] Address: [address] [place] [address] Performed By: #### 2 4356-8 ####[facility] LABORATORYCLIA [id number] [address] [place] pH (U) 6.5 [pH] Normal 5.0-8.0 [facility] Comment on above: Order Comment: Speci men Type: URINE SPECIMENOrdering Facility: [facility] Address: [address] [place] [address] Performed By: #### 2 4356-8 ####[facility] LABORATORYCLIA [id number] [address] [place] Protein (U) [Mass/Vol] Negative Normal Negative [facility] Comment on above: Order Comment: Speci men Type: URINE SPECIMENOrdering Facility: [facility] Address: [address] [place] [address] Performed By: #### 2 4356-8 ####[facility] LABORATORYCLIA [id number] [place] [address] [place] RBC LM.HPF (Urine sed) [#/Area] 11-25 /HPF Abnormal 0-3 /HPF [facility] Comment on above: Order Comment: Speci men Type: URINE SPECIMENOrdering Facility: [facility] Address: [address] [place] [address] Performed By: #### 2 4356-8 ####[facility] LABORATORYCLIA [id number] [address] Specific gravity (U) [Rel density] 1.010 Normal 1.005-1.030 [facility] Comment on above: Order Comment: Speci men Type: URINE SPECIMENOrdering Facility: [facility] Address: [address] [place] [address] Performed By: #### 2 4356-8 ####[facility] LABORATORYCLIA [id number] [address] Urobilinogen Ql (U) 0.2 EU/dL Normal 0.2 EU/d L, 1.0 EU/dL [facility] Comment on above: Order Comment: Speci men Type: URINE SPECIMENOrdering Facility: [facility] Address: [address] [place] [address] Performed By: #### 2 4356-8 ####[facility] LABORATORYCLIA [id number] [address] WBC LM.HPF (Urine sed) [#/Area] 11-25 /HPF Abnormal 0-5 /HPF [facility] Comment on above: Order Comment: Speci men Type: URINE SPECIMENOrdering Facility: [facility] Address: [address] [place] [address] Performed By: #### 2 4356-8 ####[facility] LABORATORYCLIA [id number] [address] [place] XR CHEST 2V FRONTAL/LATon XR CHEST 2V FRONTAL/LAT Normal [facility] aPTT PPPon 07-07-2024 aPTT Coag (PPP) [Time] 24.3 s Normal 23.0-32.4 [facility] Comment on above: Order Comment: Speci men Type: BLOOD SPECIMENOrdering Facility: [facility] Address: [address] [place] [address] Performed By: #### 3 4528-0, 59885-7 ####[facility] LABCLIA [id number] [place] [address] [place] NURSING PROGon 07-05-2024 NURSING PROG Normal [facility] CBC W Auto Differential pane l (Bld)on 07-04-2024 Basophils (Bld) [#/Vol] 0.05 10*3/uL Normal <0.11 [facility] Comment on above: Order Comment: Speci men Type: BLOOD SPECIMEN [facility] Address: [address] [place] [address] Performed By: #### 5 7021-8 #### [facility] CLIA [id number] [address] [place] [address] [place] Basophils/100 WBC (Bld) 0.8 % Normal [facility] Comment on above: Order Comment: Speci men Type: BLOOD SPECIMEN [facility] Address: [address] [place] [address] Performed By: #### 5 7021-8 #### [facility] [id number] [address] [place] [address] [place] Differential cell count method Nom (Bld) Auto Normal [facility] Comment on above: Order Comment: Speci men Type: BLOOD SPECIMEN [facility] Address: [address] [place] [address] Performed By: #### 5 7021-8 #### [facility] CLIA [id number] [address] [place] [address] [place] Eosinophils (Bld) [#/Vol] 0.12 10*3/uL Normal <0.46 [facility] Comment on above: Order Comment: Speci men Type: BLOOD SPECIMEN [facility] Address: [address] [place] [address] Performed By: #### 5 7021-8 #### [facility] [id number] [address] [place] [address] [place] Eosinophils/100 WBC (Bld) 2.0 % Normal [facility] Comment on above: Order Comment: Speci men Type: BLOOD SPECIMEN [facility] Address: [address] [place] [address] Performed By: #### 5 7021-8 #### [facility] CLIA [id number] [address] [place] [address] [place] Erythrocyte distribution width (RBC) [Ratio] 13.8 % Normal 11.5-15.0 [facility] Comment on above: Order Comment: Speci men Type: BLOOD SPECIMEN [facility] Address: [address] [place] [address] Performed By: #### 5 7021-8 #### [facility] [id number] [address] [place] [address] [place] Hematocrit (Bld) [Volume fraction] 33.9 % Low 36.0-46.0 [facility] Comment on above: Order Comment: Speci men Type: BLOOD SPECIMEN [facility] Address: [address] [place] [address] Performed By: #### 5 7021-8 #### [facility] CLIA [id number] [address] [place] [address] [place] Hemoglobin (Bld) [Mass/Vol] 11.2 g/dL Low 11.5-15.5 [facility] Comment on above: Order Comment: Speci men Type: BLOOD SPECIMEN [facility] Address: [address] [place] [address] Performed By: #### 5 7021-8 #### [facility] CLIA [id number] [address] [place] [address] [place] Immature granulocytes (Bld) [#/Vol] 10*3/uL Normal <0.10 [facility] Comment on above: Order Comment: Speci men Type: BLOOD SPECIMEN [facility] Address: [address] [place] [address] Performed By: #### 5 7021-8 #### [facility] CLIA [id number] [address] [place] [address] [place] Immature granulocytes/100 WBC (Bld) 0.2 % Normal [facility] Comment on above: Order Comment: Speci men Type: BLOOD SPECIMEN [facility] Address: [address] [place] [address] Performed By: #### 5 7021-8 #### [facility] [id number] [address] [place] [address] [place] Lymphocytes (Bld) [#/Vol] 1.84 10*3/uL Normal 1.00-4.00 [facility] Comment on above: Order Comment: Speci men Type: BLOOD SPECIMEN [facility] Address: [address] [place] [address] Performed By: #### 5 7021-8 #### [facility] [id number] [address] [place] [address] [place] Lymphocytes/100 WBC (Bld) 30.9 % Normal [facility] Comment on above: Order Comment: Speci men Type: BLOOD SPECIMEN [facility] Address: [address] [place] [address] Performed By: #### 5 7021-8 #### [facility] [id number] [address] [place] [address] [place] MCH (RBC) [Entitic mass] 30.2 pg Normal 26.0-34.0 [facility] Comment on above: Order Comment: Speci men Type: BLOOD SPECIMEN [facility] Address: [address] [place] [address] Performed By: #### 5 7021-8 #### [facility] CLIA [id number] [address] [place] [address] [place] MCHC (RBC) [Mass/Vol] 33.0 g/dL Normal 30.5-36.0 [facility] Comment on above: Order Comment: Speci men Type: BLOOD SPECIMEN Ordering Facility: [facility] Address: [address] [place] [address] Performed By: #### 5 7021-8 #### [facility] CLIA [id number] [address] [place] [address] [place] MCV (RBC) [Entitic vol] 91.4 fL Normal 80.0-100.0 [facility] Comment on above: Order Comment: Speci men Type: BLOOD SPECIMEN Ordering Facility: [facility] Address: [address] [place] [address] Performed By: #### 5 7021-8 #### [facility] CLIA [id number] [address] [place] [address] [place] Monocytes (Bld) [#/Vol] 0.40 10*3/uL Normal <0.87 [facility] Comment on above: Order Comment: Speci men Type: BLOOD SPECIMEN Ordering Facility: [facility] Address: [address] [place] [address] Performed By: #### 5 7021-8 #### [facility] CLIA [id number] [address] [place] [address] [place] Monocytes/100 WBC (Bld) 6.7 % Normal [facility] Comment on above: Order Comment: Speci men Type: BLOOD SPECIMEN Ordering Facility: [facility] Address: [address] [place] [address] Performed By: #### 5 7021-8 #### [facility] CLIA [id number] [address] [place] [address] [place] Neutrophils (Bld) [#/Vol] 3.54 10*3/uL Normal 1.45-7.50 [facility] Comment on above: Order Comment: Speci men Type: BLOOD SPECIMEN Ordering Facility: [facility] Address: [address] [place] [address] Performed By: #### 5 7021-8 #### [facility] CLIA [id number] [address] [place] [address] [place] Neutrophils/100 WBC (Bld) 59.4 % Normal [facility] Comment on above: Order Comment: Speci men Type: BLOOD SPECIMEN Ordering Facility: [facility] Address: [address] [place] [address] Performed By: #### 5 7021-8 #### [id number] [address] [place] [address] [place] Nucleated RBC (Bld) [#/Vol] 10*3/uL Normal <0.01 [facility] Comment on above: Order Comment: Speci men Type: BLOOD SPECIMEN Ordering Facility: [facility] Address: [address] [place] [address] Performed By: #### 5 7021-8 #### [facility] [id number] [address] [place] [address] [place] Nucleated RBC/100 WBC (Bld) [Ratio] 0.0 /100 WBC Normal [facility] Comment on above: Order Comment: Speci men Type: BLOOD SPECIMEN Ordering Facility: [facility] Address: [address] [place] [address] Performed By: #### 5 7021-8 #### [facility] [id number] [address] [place] [address] [place] Platelet mean volume (Bld) [Entitic vol] 7.9 fL Low 9.0-12.7 [facility] Comment on above: Order Comment: Speci men Type: BLOOD SPECIMEN Ordering Facility: [facility] Address: [address] [place] [address] Performed By: #### 5 7021-8 #### [facility] CLIA [id number] [address] [place] [address] [place] Platelets (Bld) [#/Vol] 265 10*3/uL Normal 150-400 [facility] Comment on above: Order Comment: Speci men Type: BLOOD SPECIMEN Ordering Facility: [facility] Address: [address] [place] [address] Performed By: #### 5 7021-8 #### [facility] CLIA [id number] [address] [place] [address] [place] RBC (Bld) [#/Vol] 3.71 10*6/uL Low 3.90-5.20 [facility] Comment on above: Order Comment: Speci men Type: BLOOD SPECIMEN Ordering Facility: [facility] Address: [address] [place] [address] Performed By: #### 5 7021-8 #### [facility] CLIA [id number] [address] [place] [address] [place] WBC (Bld) [#/Vol] 5.96 10*3/uL Normal 3.70-11.00 [facility] Comment on above: Order Comment: Speci men Type: BLOOD SPECIMEN Ordering Facility: [facility] Address: [address] [place], [place] [address] Performed By: #### 5 7021-8 #### [facility] CLIA [id number] [address] [place] [address] OF ELIO CNOVSPon 07-04-2024 CNOVSP Visit (SP) Office (HEMAWS) ORION SORENSEN ([id number]) 1950 F Date Time Provider Department 07/04/24 12:00 PM ISACC DAVIS During your visit today, we recorded the following information about you: Temperature Pulse Blood pressure Weight 98.1 degrees 88/minute 136/76 82.1 kg Neelima Roberts LPN 07/04/2024 11:30 AM Signed est. Pt. 1 yr. F/U , discuss recent lab results Breast cancer and colorectal cancer BRYNN Prescott Drew, MD 07/04/2024 12:09 PM Signed (Elements copied from my note dated July 06, 2023, have been reviewed and updated where appropriate, and all reflect current assessment and medical decision making from today's encounter, July 04, 2024) HISTORY OF PRESENT ILLNESS: Orion Sorensen is a 72 year old female who presented with abnormal mammogram. Patient had a stereotactic needle biopsy on June 16 2017 of her right breast. Biopsy was positive for invasive moderately differentiated ductal carcinoma, ER strongly +95%, IL +60% HER-2/cecil negative +1 patient has not been feeling well for the last 6 months with alternating constipation and diarrhea. She had a screening colonoscopy [address] Caal. She had 1 abnormal adenomatous polyp removed. Also patient denied weight loss she has chronic back pain from her weight and osteoporosis. She is on calcium and Fosamax for treatment osteoporosis. Her diagnostic mammogram show a 2.5 cm irregular mass in the right breast suspicious for malignancy in the upper outer quadrant at 9 o'clock. Patient has no previous breast biopsy, trauma or infection. She has family history of breast cancer both older sister bilateral breast cancer and mother has breast cancer.they were tested for BRCA1 and BRCA2 were negative. S/p right mastectomy with sentinel lymph node biopsy and prophylactic left breast mastectomy done on 09/13/17. She had two sentinel lymph nodes that were negative for metastatic disease. Final pathology revealed that an intramammary lymph node was positive for metastasis not in her axillary lymph nodes. Adjuvant chemotherapy treatment: Cyclophosphamide/Docet mary x 4 ( 10/13/17 - 01/04/18 ) Tamoxifen since December 2017 through 2022. Here for follow up, feels well. No vaginal bleeding CLINICAL IMPRESSION: Breast cancer as above. pT2N1a History anemia RECOMMENDATION/PLAN: 1. Back in 1 year Written and verbal health teaching given to patient, patient verbalizes understanding and agrees with treatment plan. PAST MEDICAL HISTORY Diagnosis Date Arthritis Breast cancer (HCC) 2018 right Chronic kidney disease, stage III (moderate) (HCC) Coronary artery disease DM type 2 (diabetes mellitus, type 2) (HCC) HTN (hypertension) pt denies Hyperlipidemia Snoring PAST SURGICAL HISTORY Procedure Laterality Date ABDOMINAL SURGERY HX ANESTH, SECTION BREAST SURGERY HX COLON SURGERY HX COLONOSCOPY 08/22/2021 repeat in 1 year COLONOSCOPY - DIAGNOSTIC 09/20/2020 EGD 08/22/2021 EYE SURGERY HX F COLONOSCOPY WITH BIOPSY 08/01/2019 Dr. Marifer Foy FRACTURE SURGERY LAPS COLECTOMY PRTL W/COLOPXTSTMY LW ANAST 09/20/2019 Dr. Tash HIGUERA MOBLJ SPLENIC FLXR PFRMD W/PRTL COLECTOMY 09/20/2019 Dr. Bianchi MASTECTOMY, SIMPLE, COMPLETE 09/13/2017 right breast mastectomy, right axillary sentinal lymph node [facility], left breast prophylactic breast mastectomy PAST SURGICAL HISTORY OF Left 1986 ankle repair PAST SURGICAL HISTORY OF Left 1978 Fibrosis excised from Breast PAST SURGICAL HISTORY OF 07/2021 Excision Basal Cell, Nose PROCEDURE RM-COLONSCOPY W/BX 2013 SKIN BIOPSY HX TONSILLECTOMY HX FAMILY HISTORY Problem Relation Age of Onset Cancer Mother Thyroid cancer dx late 50's Skin Cancer Mother dx 70's Breast Cancer Mother 83 Bone cancer dx 84, possible mets vs primary Stroke Father 39 Breast Cancer Sister dx late 50's; dx contralateral breasta cancer in early 60's Diabetes Sister Diabetes Brother Hypertension Brother Diabetes Maternal Grandmother GI Maternal Grandmother 62 Pancreatitis vs pancreatic cancer Stroke Paternal Grandmother Heart disease Paternal Grandfather Psychiatry Brother Schizophrenia Cancer Paternal Uncle Cancer NOS dx 80's Breast Cancer Maternal Aunt dx 80's Breast Cancer Maternal Aunt dx late 70's Stroke Maternal Aunt 80 Cancer Maternal Uncle Leukemia dx 60's other (Hirschsprung's disease) Other Social History Tobacco Use Smoking status: Former Current packs/day: 0.00 Average packs/day: 1 pack/day for 16.0 years (16.0 ttl pk-yrs) Types: Cigarettes Start date: 08/02/1975 Quit date: 08/02/1991 Years since quittin.9 Smokeless tobacco: Never Vaping Use Vaping status: Never Used Substance Use Topics Alcohol use: Yes Comment: wine cooler twice weekly Drug use: No ALLERGIES: ALLERGIE (more content not included)... Normal [facility] Ferritin SerPl-mCncon 2023 Ferritin [Mass/Vol] 98.9 ng/mL Normal 14.7-205.1 [facility] Comment on above: Order Comment: Speci men Type: BLOOD SPECIMEN Ordering Facility: [facility] Address: [address] [place] [address] Performed By: #### 2 276-4, 37269-2 #### [facility] CLIA [id number] [address] [place] [address] [place] Iron and Iron binding capaci ty panelon 07-04-2024 Iron [Mass/Vol] 91 ug/dL Normal 41-186 [facility] Comment on above: Order Comment: Speci men Type: BLOOD SPECIMEN Ordering Facility: [facility] Address: [address] [place] [address] Performed By: #### 2 276-4, 70725-9 #### [facility] CLIA [id number] [address] [place] [address] [place] Iron binding capacity [Mass/Vol] 455 ug/dL High 232-386 [facility] Comment on above: Order Comment: Speci men Type: BLOOD SPECIMEN Ordering Facility: [facility] Address: [address] [place] [address] Performed By: #### 2 276-4, 37568-5 #### [facility] CLIA [id number] [address] [place] [address] [place] Iron/TIBC [Molar ratio] 20.0 % Normal 15.0-57.0 [facility] Comment on above: Order Comment: Speci men Type: BLOOD SPECIMEN Ordering Facility: [facility] Address: [address] [place] [address] Performed By: #### 2 276-4, 05733-4 #### [facility] CLIA [id number] [address] [place] [address] [place] [address] [place] CNCOon 06-21-2024 CNCO Letter Text Normal [facility] CNOVon 06-19-2024 CNOV Office Visit (GENSWS ) ORION SORENSEN ([id number]) 1950 F Date Time Provider Department 06/19/24 1:15 PM MARIFER FOY During your visit today, we recorded the following information about you: Temperature Pulse Blood pressure Weight 97.3 degrees 101/minute 138/58 84.6 kg Height 1.562 m Meche, BRYNN Au 06/19/2024 1:05 PM Signed REVIEW OF SYSTEMS: General: The patient denies fatigue, denies weight loss, denies weight gain, denies feeling hot, and denies feelings of cold. Eyes: The patient denies glaucoma, denies eye injury/surgery, wears glasses or contacts. Ear/Nose/Throat: The patient notes allergies, denies hayfever, denies ear infections, and denies bloody noses. Cardiovascular: The patient denies chest pain, denies heart disease, denies high blood pressure,denies cardiac stent, denies prior heart attack, denies irregular heart beat, denies high cholesterol, denies poor circulation, denies heart failure, other cardiac issues, denies claudication, denies cold feet, denies peripheral arterial stent. Respiratory: The patient denies tuberculosis, denies pneumonia, denies frequent cough, denies pulmonary embolism, denies shortness of breath, and denies coughing up blood. Gastrointestinal: The patient denies difficulty swallowing, notes acid reflux, denies ulcers, denies vomiting, denies jaundice/hepatitis, denies gallbladder problems, notes black or tarry stools, notes hemorrhoids, notes bleeding from rectum, notes diverticulitis, notes constipation, notes diarrhea, denies loss of stool control, and denies hernias. Kidney/Bladder: The patient denies kidney stones, denies urine infections, and denies bloody urine. Skin: The patient notes a history of skin cancer, denies bleeding/changing moles, and denies a history of skin rash. Neurologic: The patient denies a history of epilepsy/convulsions, denies headaches, denies head/spinal injuries, and denies stroke/TIA. Psychiatric: The patient denies psychiatric medications, denies depression, and denies voices, denies substance abuse. Endocrine: The patient denies thyroid disorders, notes diabetes, and denies hormonal problems. Hematologic: The patient denies a history of bruising, denies bleeding, and notes anemia, denies blood clots. Infections: The patient notes a history of measles and mumps, denies rheumatic fever, and denies sexually transmitted diseases. Musculoskeletal: The patient notes back pain/injury, notes back problems, denies sciatica, denies knee/foot trouble, denies arthritis, or denies gout. When was patient's last Mammogram screening? 2016 Last Colonoscopy: 2021 BRYNN Holt, Marifer Nunez MD 06/22/2024 4:06 PM Signed Orion Sorensen 1950 REFERRING PHYSICIAN: No ref. provider found CHIEF COMPLAINT: Consult (Hernia, left abdomen) HPI: The patient is a 73 year old pleasant female presents with ventral incisional hernia. She is s/p laparoscopic colon surgery in 2019. She last had a colonoscopy in 2021. She has noted chronic constipation for years. She states that the hernia is not bothering her and she denies abdominal pain. She denies obstructive gastrointestinal and/or urinary symptoms. She is scheduled for back surgery 07/21/2024. PAST MEDICAL HISTORY Diagnosis Date Arthritis Breast cancer (HCC) 2018 right Chronic kidney disease, stage III (moderate) (HCC) Coronary artery disease DM type 2 (diabetes mellitus, type 2) (HCC) HTN (hypertension) pt denies Hyperlipidemia Snoring PAST SURGICAL HISTORY Procedure Laterality Date ABDOMINAL SURGERY HX ANESTH, SECTION BREAST SURGERY HX COLON SURGERY HX COLONOSCOPY 08/22/2021 repeat in 1 year COLONOSCOPY - DIAGNOSTIC 09/20/2020 EGD 08/22/2021 EYE SURGERY HX F COLONOSCOPY WITH BIOPSY 08/01/2019 Dr. Marifer Foy FRACTURE SURGERY LAPS COLECTOMY PRTL W/COLOPXTSTMY LW ANAST 09/20/2019 Dr. Bianchi LAPS MOBLJ SPLENIC FLXR PFRMD W/PRTL COLECTOMY 09/20/2019 Dr. Bianchi MASTECTOMY, SIMPLE, COMPLETE 09/13/2017 right breast mastectomy, right axillary sentinal lymph node [facility], left breast prophylactic breast mastectomy PAST SURGICAL HISTORY OF Left 1986 ankle repair PAST SURGICAL HISTORY OF Left 1979 Fibrosis excised from Breast PAST SURGICAL HISTORY OF 07/2021 Excision Basal Cell, Nose PROCEDURE RM-COLONSCOPY W/BX 2013 SKIN BIOPSY HX TONSILLECTOMY HX Current Outpatient Medications Medication Sig magnesium oxide (MAG-OX) 400 mg (241.3 mg magnesium) tablet Take 400 mg by mouth once daily. oxybutynin ER (DITROPAN XL) 10 mg 24 hr tablet Take 10 mg by mouth once daily. NOVOLOG FLEXPEN 100 unit/mL inpn Inject 25 Units subcutaneously three times daily. LANTUS SOLOSTAR 100 unit/mL (3 mL) inpn Inject 30-35 Units subcutaneously daily at bedtime. alendronate (FOSAMAX) 70 mg tablet Take 1 (more content not included)... Normal [facility] CNOVon 06-08-2024 CNOV Normal [facility] CT CERVICAL SPINE WO IVCONon 06-08-2024 CT CERVICAL SPINE WO IVCON Normal [facility] A1Con 06-03-2024 Glucose [Mass/Vol] 174 mg/dL Normal [facility] Comment on above: Result Comment: Jany mated Average Glucose calculated by equation ((28.7xA1C)-46.7) Estimated average glucose (eAG) is a calculated value from Hemoglobin A1C and is computer help desk representative of the average blood glucose level in the last 2-3 month period. Normal range: less than 114 mg/dL Performed By: #### A 1C ####[address] [place], [place] [address] HbA1c (Bld) [Mass fraction] 7.7 % High 4.3-6.4 [facility] Comment on above: Performed By: #### A 1C ####[address] [place], [place] [address] LABORATORYOrdered By: SYSTEM SYSTEM on 06-03-2024 Glucose [Mass/Vol] 174 mg/dL Invalid Interpretation Code AO Chemistry S Comment on above: Interpretive Data: E stimated average glucose (eAG) is a calculated value from Hemoglobin A1C and is computer help desk representative of the average blood glucose level in the last 2-3 month period. Normal range: less than 114 mg/dL HbA1c (Bld) [Mass fraction] 7.7 % High 4.3 - 6.4 % AO ADM SS MRI SPINE CERVICAL W/O CONTR Nicholas 01-10-2024 MRI SPINE CERVICAL W/O CONTRAST ORIGINAL EXAMINATION: MRI OF THE CERVICAL SPINE WITHOUT CONTRAST 01/07/2024 12:17 pm TECHNIQUE: Multiplanar multisequence MRI of the cervical spine was performed without the administration of intravenous contrast. COMPARISON: Correlation with CT C-spine radiographs 11/19/2023. HISTORY: ORDERING SYSTEM PROVIDED HISTORY: Reason for Exam: positive olmstead's sign, cervical spinal pain, concern for cord compression FINDINGS: BONES/ALIGNMENT: Mild straightening of the cervical lordosis. Grade 1 anterolisthesis of C7 on T1. The vertebral body heights are maintained. The bone marrow signal appears unremarkable. SPINAL CORD: Mild increased T2 signal is appreciated within the left hemicord faintly in the level of C5-6 through C6-7. SOFT TISSUES: Prevertebral and paraspinal soft tissues appear unremarkable. Cervical fat planes appear preserved. No adenopathy. C2-C3: There is no significant disc protrusion, spinal canal stenosis or neural foraminal narrowing. C3-C4: Minimal diffuse disc bulge without significant narrowing of the spinal canal. Facet and uncovertebral arthropathy resulting in moderate right neural foraminal stenosis. C4-C5: Mild diffuse disc bulge results and mild narrowing of the spinal canal. No significant neural foraminal stenosis bilaterally. C5-C6: A diffuse disc bulge is appreciated with facet and uncovertebral arthropathy resulting in moderate narrowing of the spinal canal with severe right and moderate left neural foraminal stenosis. C6-C7: A large diffuse disc bulge is appreciated with ligamentum flavum hypertrophy as well as facet and uncovertebral arthropathy resulting in severe narrowing of the spinal canal with impingement upon the spinal cord at this level. Moderate right and severe left neural foraminal stenosis. C7-T1: Minimal posterior disc uncovering and ligamentum flavum hypertrophy without significant narrowing of the spinal canal. Moderate bilateral neural foraminal stenosis. IMPRESSION: Image multilevel degenerative changes as described above, most severe at C6-7 with severe narrowing of the spinal canal, compression of the cervical cord with faint signal change compatible with myelopathy, and moderate to severe neural foraminal stenosis. Interpreted by: Enoch Barnhart Preliminary Report By: Enoch Barnhart Electronically signed By Enoch Barnhart Dictated Date: 01/10/2024 11:37:27 AM Prelim Date: 01/10/2024 11:53:01 AM Sign Date: 01/10/2024 11:53:01 AM Ordering Provider: TERRIE GOLDSTEIN [facility]) XR CHEST 2 VIEWSon XR CHEST 2 VIEWS ORIGINAL HISTORY: Consolidation COMPARISON: Cervical spine x-ray 5 days previously FINDINGS: The lungs are clear. The cardiac silhouette is within normal size limits. The pulmonary vasculature is unremarkable in appearance. IMPRESSION: Clear lungs Interpreted by: Arley Blood MD Preliminary Report By: Arley Blood MD Electronically signed By Arley Blood MD Dictated Date: 11/24/2023 10:42:39 AM Prelim Date: 11/24/2023 10:43:21 AM Sign Date: 11/24/2023 10:43:21 AM Ordering Provider: TERRIE GOLDSTEIN [facility]) XR SPINE CERVICAL AP/LATon 0 11-22-2023 XR SPINE CERVICAL AP/LAT ORIGINAL EXAMINATION: TWO XRAY VIEWS OF THE CERVICAL SPINE11/19/2023 11:53 am CERVICAL SPINE 2 VIEWS COMPARISON: None HISTORY: ORDERING SYSTEM PROVIDED HISTORY: Reason for Exam: neck pain, decreased rom, and right arm numbness FINDINGS: Disc height loss and spurring seen at C5-6 and C6-7. The C6-7 level is partially obscured by overlap with the shoulders multilevel facet and uncovertebral joint arthrosis. Lung apices are clear. C1-2 relationship is grossly maintained. Vague right upper lobe density versus summation artifact. 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 PA and lateral views of the chest advised The findings were sent to the [facility] at 1:33 pm on 11/22/2023 to be communicated to a licensed caregiver. Interpreted by: Zaheer Kate MD Preliminary Report By: Zaheer Kate MD Electronically signed By Zaheer Kate MD Dictated Date: 11/22/2023 1:31:22 PM Prelim Date: 11/22/2023 1:33:59 PM Sign Date: 11/22/2023 1:33:59 PM Ordering Provider: TERRIE GOLDSTEIN [facility]) LABORATORYOrdered By: Leah Mcdermott on 11-19-2023 Albumin DL <= 20 mg/L (U) [Mass/Vol] 45316 mcg/dL Invalid Interpretation Code AO ADM SS Albumin/Creatinine DL <= 20 mg/L (U) [Mass ratio] 94 mcg/mg High 0 - 30 mcg/mg AO ADM SS Creatinine (U) [Mass/Vol] 111.7 mg/dL Normal 28.0 - 117.0 mg/dL AO ADM SS MALBRon 11-19-2023 U Creatinine 111.7 mg/dL Normal 28.0-117.0 [facility]) Comment on above: Performed By: #### M ALBR #### [address] [address] U Microalb [address] mcg/dL Normal [facility]) Comment on above: Performed By: #### M ALBR #### [address] [address] U Ratio Alb/Cre 94 mcg/mg High 0-30 [facility] ([place]) Comment on above: Performed By: #### M ALBR #### [address] [address] .Auto Diffon 11-15-2023 Basophil, Absolute 0.0 10 3/mcL Normal 0.0-0.2 [facility]) Comment on above: Performed By: #### A CECIL, A1C, ADIFF, LIPID, TSH, CMP, GFR, FT4, CBC #### [address] [address] Basophils/100 WBC (Bld) 0.7 % Normal 0.0-2.5 Pending sale to [facility]) Comment on above: Performed By: #### A CECIL, A1C, ADIFF, LIPID, TSH, CMP, GFR, FT4, CBC #### [address] [address] Eosinophil, Absolute 0.2 10 3/mcL Normal 0.0-0.4 [facility] ([place]) Comment on above: Performed By: #### A CECIL, A1C, ADIFF, LIPID, TSH, CMP, GFR, FT4, CBC #### [address] [address] Eosinophils/100 WBC (Bld) 3.7 % Normal 0.0-7.0 [facility] ([place]) Comment on above: Performed By: #### A CECIL, A1C, ADIFF, LIPID, TSH, CMP, GFR, FT4, CBC #### [address] [address] Lymphocyte, Absolute 2.7 10 3/mcL Normal 0.8-3.9 [facility] ([place]) Comment on above: Performed By: #### A CECIL, A1C, ADIFF, LIPID, TSH, CMP, GFR, FT4, CBC #### [address] [address] Lymphocytes/100 WBC (Bld) 44.7 % Normal 10.0-50.0 [facility] ([place]) Comment on above: Performed By: #### A CECIL, A1C, ADIFF, LIPID, TSH, CMP, GFR, FT4, CBC #### [address] [address] Monocyte, Absolute 0.4 10 3/mcL Normal 0.2-1.0 [facility] ([place]) Comment on above: Performed By: #### A CECIL, A1C, ADIFF, LIPID, TSH, CMP, GFR, FT4, CBC #### [address] [address] Monocytes/100 WBC (Bld) 7.1 % Normal 1.7-13.0 [facility] ([place]) Comment on above: Performed By: #### A CECIL, A1C, ADIFF, LIPID, TSH, CMP, GFR, FT4, CBC #### [facility] [address] [place] [address] Neutrophils/100 WBC (Bld) 43.8 % Normal 37.0-80.0 [facility] ([place]) Comment on above: Performed By: #### A CECIL, A1C, ADIFF, LIPID, TSH, CMP, GFR, FT4, CBC #### [id number] [place], [place] [address] .GFRon 11-15-2023 GFR Non- 50 ml/min/1.73sqm Normal [facility] ([place]) Comment on above: Result Comment: GFR Population mean for , Non- Americans Ages 20-29 = 116 mL/min/1.73 sq.m. Ages 30-39 = 107 mL/min/1.73 sq.m. Ages 40-49 = 99 mL/min/1.73 sq.m. Ages 50-59 = 93 mL/min/1.73 sq.m. Ages 60-69 = 85 mL/min/1.73 sq.m. Ages 70+ = 75 mL/min/1.73 sq.m. Chronic Kidney Disease: Less than 60 mL/min/1.73 square meters End Stage Renal Disease: Less than 15 mL/min/1.73 square meters Performed By: #### A CECIL, A1C, ADIFF, LIPID, TSH, CMP, GFR, FT4, CBC ####John [id number] [place], [place] [address] GFR 61 ml/min/1.73sqm Normal [facility] ([place]) Comment on above: Result Comment: GFR Population mean for , Non- Americans Ages 20-29 = 116 mL/min/1.73 sq.m. Ages 30-39 = 107 mL/min/1.73 sq.m. Ages 40-49 = 99 mL/min/1.73 sq.m. Ages 50-59 = 93 mL/min/1.73 sq.m. Ages 60-69 = 85 mL/min/1.73 sq.m. Ages 70+ = 75 mL/min/1.73 sq.m. Chronic Kidney Disease: Less than 60 mL/min/1.73 square meters End Stage Renal Disease: Less than 15 mL/min/1.73 square meters Performed By: #### A CECIL, A1C, ADIFF, LIPID, TSH, CMP, GFR, FT4, CBC ####[place] [address] .NEUABSon 11-15-2023 Neutrophil, Absolute 2.6 10 3/mcL Low 2.9-6.2 [facility] ([place]) Comment on above: Performed By: #### A CECIL, A1C, ADIFF, LIPID, TSH, CMP, GFR, FT4, CBC ####[place] [id number] A1Con 11-15-2023 HbA1c (Bld) [Mass fraction] 7.5 % High 4.3-6.4 [facility] ([place]) Comment on above: Performed By: #### A CECIL, A1C, ADIFF, LIPID, TSH, CMP, GFR, FT4, CBC ####[place] [address] CBCon 11-15-2023 Erythrocyte distribution width (RBC) [Ratio] 13.6 % Normal 11.5-14.5 [facility] ([place]) Comment on above: Performed By: #### A CECIL, A1C, ADIFF, LIPID, TSH, CMP, GFR, FT4, CBC #### [place] [address] Hematocrit (Bld) [Volume fraction] 33.2 % Low 37.0-47.0 [facility] ([place]) Comment on above: Performed By: #### A CECIL, A1C, ADIFF, LIPID, TSH, CMP, GFR, FT4, CBC #### [address] [address] Hgb 11.4 G/dL Low 12.0-16.0 [facility] ([place]) Comment on above: Performed By: #### A CECIL, A1C, ADIFF, LIPID, TSH, CMP, GFR, FT4, CBC #### [address] [address] MCH (RBC) [Entitic mass] 32.0 pg High 27.0-31.2 [facility] ([place]) Comment on above: Performed By: #### A CECIL, A1C, ADIFF, LIPID, TSH, CMP, GFR, FT4, CBC #### [address] [address] MCHC 34.5 G/dL Normal 33.0-37.0 [facility] ([place]) Comment on above: Performed By: #### A CECIL, A1C, ADIFF, LIPID, TSH, CMP, GFR, FT4, CBC #### [address] [address] MCV (RBC) [Entitic vol] 92.7 fL Normal 80.0-94.0 [facility] ([place]) Comment on above: Performed By: #### A CECIL, A1C, ADIFF, LIPID, TSH, CMP, GFR, FT4, CBC #### [address] [address] Platelet 300 10 3/mcL Normal 130-400 Replaced by [facility] ([place]) Comment on above: Performed By: #### A CECIL, A1C, ADIFF, LIPID, TSH, CMP, GFR, FT4, CBC #### [address] [address] Platelet mean volume (Bld) [Entitic vol] 6.4 fL Low 7.4-10.4 Replaced by [facility] ([place] Comment on above: Performed By: #### A CECIL, A1C, ADIFF, LIPID, TSH, CMP, GFR, FT4, CBC #### [address] [address] RBC 3.58 10 6/mcL Low 4.20-5.40 [facility] ([place]) Comment on above: Performed By: #### A CECIL, A1C, ADIFF, LIPID, TSH, CMP, GFR, FT4, CBC #### [address] [address] WBC 6.0 10 3/mcL Normal 4.6-10.8 Replaced by [facility] ([place]) Comment on above: Performed By: #### A CECIL, A1C, ADIFF, LIPID, TSH, CMP, GFR, FT4, CBC #### [facility] [address] [place], [place] [address] CMPon 11-15-2023 Albumin Level 3.3 G/dL Low 3.4-4.8 [facility] ([place]) Comment on above: Performed By: #### A CECIL, A1C, ADIFF, LIPID, TSH, CMP, GFR, FT4, CBC ####[address] [place], [place] [address] Albumin/Globulin [Mass ratio] 0.9 {ratio} Low 1.1-2.5 [facility] ([place]) Comment on above: Performed By: #### A CECIL, A1C, ADIFF, LIPID, TSH, CMP, GFR, FT4, CBC ####[address] [place], [place] [address] ALP [Catalytic activity/Vol] 53 U/L Normal 40-135 [facility] ([place]) Comment on above: Performed By: #### A CECIL, A1C, ADIFF, LIPID, TSH, CMP, GFR, FT4, CBC ####[address] [place], [place] [address] ALT [Catalytic activity/Vol] 74 U/L High 14-59 [facility] ([place]) Comment on above: Performed By: #### A CECIL, A1C, ADIFF, LIPID, TSH, CMP, GFR, FT4, CBC ####[address] [place], [place] [address] AST [Catalytic activity/Vol] 70 U/L High 10-40 [facility] ([place]) Comment on above: Performed By: #### A CECIL, A1C, ADIFF, LIPID, TSH, CMP, GFR, FT4, CBC ####[facility] [place], [place] [address] Bili Total 0.3 mg/dL Normal 0.2-1.0 [facility] ([place]) Comment on above: Result Comment: Use of this assay is not recommended for patients undergoing treatment with eltrombopag due to the potential for falsely elevated results. Performed By: #### A CECIL, A1C, ADIFF, LIPID, TSH, CMP, GFR, FT4, CBC ####[address] [place], [place] [address] BUN/Creatinine Ratio 16 ratio Normal 7-27 [facility] ([place]) Comment on above: Performed By: #### A CECIL, A1C, ADIFF, LIPID, TSH, CMP, GFR, FT4, CBC ####[address] [place], [place] [address] Calcium [Mass/Vol] 9.4 mg/dL Normal 8.4-10.2 [facility] ([place]) Comment on above: Performed By: #### A CECIL, A1C, ADIFF, LIPID, TSH, CMP, GFR, FT4, CBC ####[address] [place], [place] [address] Chloride [Moles/Vol] 104 mmol/L Normal 98-107 [facility] ([place]) Comment on above: Performed By: #### A CECIL, A1C, ADIFF, LIPID, TSH, CMP, GFR, FT4, CBC ####[address] [place], [place] [address] CO2 [Moles/Vol] 28 mmol/L Normal 23-31 [facility] ([place]) Comment on above: Performed By: #### A CECIL, A1C, ADIFF, LIPID, TSH, CMP, GFR, FT4, CBC ####[address] [place], [place] [address] Creatinine [Mass/Vol] 1.07 mg/dL High 0.55-1.02 [facility] ([place]) Comment on above: Performed By: #### A CECIL, A1C, ADIFF, LIPID, TSH, CMP, GFR, FT4, CBC ####[address] [place], [place] [address] Electrolyte Balance 6.0 mEq/L Normal 4.0-15.0 [facility] ([place]) Comment on above: Performed By: #### A CECIL, A1C, ADIFF, LIPID, TSH, CMP, GFR, FT4, CBC ####[address] [place], [place] [address] Globulin 3.7 G/dL Normal [facility] ([place]) Comment on above: Performed By: #### A CECIL, A1C, ADIFF, LIPID, TSH, CMP, GFR, FT4, CBC ####[address] [place], [place] [address] Glucose [Mass/Vol] 198 mg/dL High 83-110 [facility] ([place]) Comment on above: Performed By: #### A CECIL, A1C, ADIFF, LIPID, TSH, CMP, GFR, FT4, CBC ####[address] [place], [place] [address] Potassium [Moles/Vol] 5.3 mmol/L High 3.5-5.1 [facility] ([place]) Comment on above: Performed By: #### A CECIL, A1C, ADIFF, LIPID, TSH, CMP, GFR, FT4, CBC ####[address] [place], [place] [address] Sodium [Moles/Vol] 138 mmol/L Normal 136-145 [facility] ([place]) Comment on above: Performed By: #### A CECIL, A1C, ADIFF, LIPID, TSH, CMP, GFR, FT4, CBC ####[address] [place], [place] [address] Total Protein 7.0 G/dL Normal 6.4-8.2 [facility] ([place]) Comment on above: Performed By: #### A CECIL, A1C, ADIFF, LIPID, TSH, CMP, GFR, FT4, CBC ####[address] [place], [place] [address] Urea nitrogen [Mass/Vol] 17 mg/dL Normal 7-18 [facility] ([place]) Comment on above: Performed By: #### A CECIL, A1C, ADIFF, LIPID, TSH, CMP, GFR, FT4, CBC ####[address] [place], [place] [address] FT4on 11-15-2023 Free T4 [Mass/Vol] 0.95 ng/dL Normal 0.76-1.46 [facility] ([place]) Comment on above: Performed By: #### A CECIL, A1C, ADIFF, LIPID, TSH, CMP, GFR, FT4, CBC ####[address] [place] [id number] LABORATORYOrdered By: SYSTEM SYSTEM on 11-15-2023 Albumin BCP dye [Mass/Vol] 3.3 G/dL Low 3.4 - 4.8 G/dL AO ADM SS Albumin/Globulin [Mass ratio] 0.9 {ratio} Low 1.1 - 2.5 ratio AO ADM SS ALP [Catalytic activity/Vol] 53 U/L Normal 40 - 135 U/L AO ADM SS ALT With P-5'-P [Catalytic activity/Vol] 74 U/L High 14 - 59 U/L AO ADM SS AST With P-5'-P [Catalytic activity/Vol] 70 U/L High 10 - 40 U/L AO ADM SS Basophil, Absolute 0.0 103/mcL Normal 0.0 - 0.2 10^3/mcL AO Workflow SS Basophils/100 WBC (Bld) 0.7 % Normal 0.0 - 2.5 % AO Workflow SS Bilirubin [Mass/Vol] 0.3 mg/dL Normal 0.2 - 1 .0 mg/dL AO ADM SS Comment on above: Interpretive Data: U se of this assay is not recommended for patients undergoing treatment with eltrombopag due to the potential for falsely elevated results. Calcium [Mass/Vol] 9.4 mg/dL Normal 8.4 - 10. 2 mg/dL AO ADM SS Chloride [Moles/Vol] 104 mmol/L Normal 98 - 10 7 mmol/L AO ADM SS CO2 [Moles/Vol] 28 mmol/L Normal 23 - 31 mmol/L AO ADM SS Creatinine [Mass/Vol] 1.07 mg/dL High 0.55 - 1.02 mg/dL AO ADM SS Electrolyte Balance 6.0 mEq/L Normal 4.0 - 15 .0 mEq/L AO ADM SS Eosinophil, Absolute 0.2 103/mcL Normal 0.0 - 0 .4 10^3/mcL AO Workflow SS Eosinophils/100 WBC (Bld) 3.7 % Normal 0.0 - 7.0 % AO Workflow SS Erythrocyte distribution width (RBC) [Ratio] 13.6 % Normal 11.5 - 14.5 % AO Workflow SS Free T4 [Mass/Vol] 0.95 ng/dL Normal 0.76 - 1. 46 ng/dL AO ADM SS GFR/1.73 sq M.predicted among blacks MDRD (S/P/Bld) [Vol rate/Area] 61 ml/min/1.73sqm Invalid Interpretation Code AO Chemistry S Comment on above: Interpretive Data: GFR Population mean for , Non- Americans Ages 20-29 = 116 mL/min/1.73 sq.m. Ages 30-39 = 107 mL/min/1.73 sq.m. Ages 40-49 = 99 mL/min/1.73 sq.m. Ages 50-59 = 93 mL/min/1.73 sq.m. Ages 60-69 = 85 mL/min/1.73 sq.m. Ages 70+ = 75 mL/min/1.73 sq.m. Chronic Kidney Disease: Less than 60 mL/min/1.73 square meters End Stage Renal Disease: Less than 15 mL/min/1.73 square meters GFR/1.73 sq M.predicted among non-blacks MDRD (S/P/Bld) [Vol rate/Area] 50 ml/min/1.73sqm Invalid Interpretation Code AO Chemistry S Comment on above: Interpretive Data: GFR Population mean for , Non- Americans Ages 20-29 = 116 mL/min/1.73 sq.m. Ages 30-39 = 107 mL/min/1.73 sq.m. Ages 40-49 = 99 mL/min/1.73 sq.m. Ages 50-59 = 93 mL/min/1.73 sq.m. Ages 60-69 = 85 mL/min/1.73 sq.m. Ages 70+ = 75 mL/min/1.73 sq.m. Chronic Kidney Disease: Less than 60 mL/min/1.73 square meters End Stage Renal Disease: Less than 15 mL/min/1.73 square meters Globulin 3.7 G/dL Invalid Interpretation Code AO ADM SS Glucose [Mass/Vol] 198 mg/dL High 83 - 110 mg/dL AO ADM SS HbA1c (Bld) [Mass fraction] 7.5 % High 4.3 - 6.4 % AO ADM SS Hematocrit (Bld) [Volume fraction] 33.2 % Low 37.0 - 47.0 % AO Workflow SS Hemoglobin (Bld) [Mass/Vol] 11.4 G/dL Low 12.0 - 16.0 G/dL AO Workflow SS Lymphocyte, Absolute 2.7 103/mcL Normal 0.8 - 3 .9 10^3/mcL AO Workflow SS Lymphocytes/100 WBC (Bld) 44.7 % Normal 10.0 - 50.0 % AO Workflow SS MCH (RBC) [Entitic mass] 32.0 pg High 27.0 - 31.2 pg AO Workflow SS MCHC 34.5 G/dL Normal 33.0 - 37.0 G/dL AO Workflow SS MCV (RBC) [Entitic vol] 92.7 fL Normal 80.0 - 94.0 fL AO Workflow SS Monocyte, Absolute 0.4 103/mcL Normal 0.2 - 1.0 10^3/mcL AO Workflow SS Monocytes/100 WBC (Bld) 7.1 % Normal 1.7 - 13.0 % AO Workflow SS Neutrophil, Absolute 2.6 103/mcL Low 2.9 - 6 .2 10^3/mcL AO Workflow SS Neutrophils/100 WBC (Bld) 43.8 % Normal 37.0 - 80.0 % AO Workflow SS Platelet mean volume (Bld) [Entitic vol] 6.4 fL Low 7.4 - 10.4 fL AO Workflow SS Platelets (Bld) [#/Vol] 300 103/mcL Normal 130 - 400 10^3/mcL AO Workflow SS Potassium [Moles/Vol] 5.3 mmol/L High 3.5 - 5.1 mmol/L AO ADM SS Protein [Mass/Vol] 7.0 G/dL Normal 6.4 - 8.2 G/dL AO ADM SS RBC (Bld) [#/Vol] 3.58 106/mcL Low 4.20 - 5.4 0 10^6/mcL AO Workflow SS Sodium [Moles/Vol] 138 mmol/L Normal 136 - 145 mmol/L AO ADM SS TSH Qn 2.92 m[IU]/L Normal 0.36 - 3.74 mcIU/mL AO ADM SS Urea nitrogen [Mass/Vol] 17 mg/dL Normal 7 - 18 mg/dL AO ADM SS Urea nitrogen/Creatinine [Mass ratio] 16 ratio Normal 7 - 27 ratio AO ADM SS WBC (Bld) [#/Vol] 6.0 103/mcL Normal 4.6 - 10.8 10^3/mcL AO Workflow SS LABORATORYOrdered By: Jacqui Willams on 11-15-2023 Cholesterol [Mass/Vol] 127 mg/dL Normal 0 - 2 00 mg/dL AO ADM SS Comment on above: Interpretive Data: C holesterol Reference Interval: Less than 200 Desirable 200-239 Borderline high risk 240 and above High risk Cholesterol in HDL [Mass/Vol] 49 mg/dL Normal 40 - 60 mg/dL AO ADM SS Cholesterol in LDL [Mass/Vol] 64 mg/dL Normal 0 - 130 mg/dL AO ADM SS Triglyceride [Mass/Vol] 70 mg/dL Normal 0 - 150 mg/dL AO ADM SS Comment on above: Interpretive Data: T riglyceride Reference Interval: Less than 150 Normal 150-199 Borderline high risk 200-499 High risk 500 or higher Very high risk LIPIDon 11-15-2023 Cholesterol [Mass/Vol] 127 mg/dL Normal 0-200 [facility] ([place]) Comment on above: Result Comment: Chol esterol Reference Interval: Less than 200 Desirable 200-239 Borderline high risk 240 and above High risk Performed By: #### A CECIL, A1C, ADIFF, LIPID, TSH, CMP, GFR, FT4, CBC ####[facility] [place], [place] [address] Cholesterol in HDL [Mass/Vol] 49 mg/dL Normal 40-60 [facility] ([place]) Comment on above: Performed By: #### A CECIL, A1C, ADIFF, LIPID, TSH, CMP, GFR, FT4, CBC ####[facility] [place], [place] [address] Cholesterol in LDL [Mass/Vol] 64 mg/dL Normal 0-130 [facility] ([place]) Comment on above: Performed By: #### A CECIL, A1C, ADIFF, LIPID, TSH, CMP, GFR, FT4, CBC ####[facility] [place], [place] [address] Triglyceride [Mass/Vol] 70 mg/dL Normal 0-150 [facility] ([place]) Comment on above: Result Comment: Trig lyceride Reference Interval: Less than 150 Normal 150-199 Borderline high risk 200-499 High risk 500 or higher Very high risk Performed By: #### A CECIL, A1C, ADIFF, LIPID, TSH, CMP, GFR, FT4, CBC ####[address] [place], [place] [address] TSHon 11-15-2023 TSH Qn 2.92 m[IU]/L Normal 0.36-3.74 Replaced by [facility] ([place]) Comment on above: Performed By: #### A CECIL, A1C, ADIFF, LIPID, TSH, CMP, GFR, FT4, CBC ####[address] [place], [place] [address] .Auto Diffon 05-27-2023 Basophil, Absolute 0.0 10 3/mcL Normal 0.0-0.2 [facility] ([place]) Comment on above: Performed By: #### C BC, ANEU, CMP, MDW, ADIFF, GFR, LIP ####[address] [place], [place] [address] Basophils/100 WBC (Bld) 0.3 % Normal 0.0-2.5 [facility] ([place]) Comment on above: Performed By: #### C BC, ANEU, CMP, MDW, ADIFF, GFR, LIP ####[address] [place], [place] [address] Eosinophil, Absolute 0.1 10 3/mcL Normal 0.0-0.4 [facility] ([place]) Comment on above: Performed By: #### C BC, ANEU, CMP, MDW, ADIFF, GFR, LIP ####[address] [place], [place] [address] Eosinophils/100 WBC (Bld) 0.7 % Normal 0.0-7.0 [facility] ([place]) Comment on above: Performed By: #### C BC, ANEU, CMP, MDW, ADIFF, GFR, LIP ####[address] [place], [place] [address] Lymphocyte, Absolute 1.5 10 3/mcL Normal 0.8-3.9 [facility] ([place]) Comment on above: Performed By: #### C BC, ANEU, CMP, MDW, ADIFF, GFR, LIP ####[address] [place], [place] [address] Lymphocytes/100 WBC (Bld) 18.9 % Normal 10.0-50.0 [facility] ([place]) Comment on above: Performed By: #### C BC, ANEU, CMP, MDW, ADIFF, GFR, LIP ####[address] [place], [place] [address] Monocyte, Absolute 0.5 10 3/mcL Normal 0.2-1.0 [facility] ([place]) Comment on above: Performed By: #### C BC, ANEU, CMP, MDW, ADIFF, GFR, LIP ####[address] [place], [place] [address] Monocytes/100 WBC (Bld) 5.6 % Normal 1.7-13.0 [facility] ([place]) Comment on above: Performed By: #### C BC, ANEU, CMP, MDW, ADIFF, GFR, LIP ####[address] [place], [place] [address] Neutrophils/100 WBC (Bld) 74.5 % Normal 37.0-80.0 [facility] ([place]) Comment on above: Performed By: #### C BC, ANEU, CMP, MDW, ADIFF, GFR, LIP ####[address] [place], [place] [address] .GFRon 05-27-2023 GFR 56 ml/min/1.73sqm Normal [facility] ([place]) Comment on above: Result Comment: GFR Population mean for , Non- Americans Ages 20-29 = 116 mL/min/1.73 sq.m. Ages 30-39 = 107 mL/min/1.73 sq.m. Ages 40-49 = 99 mL/min/1.73 sq.m. Ages 50-59 = 93 mL/min/1.73 sq.m. Ages 60-69 = 85 mL/min/1.73 sq.m. Ages 70+ = 75 mL/min/1.73 sq.m. Chronic Kidney Disease: Less than 60 mL/min/1.73 square meters End Stage Renal Disease: Less than 15 mL/min/1.73 square meters Performed By: #### C BC, ANEU, CMP, MDW, ADIFF, GFR, LIP ####[address] [place], [place] [address] GFR Non- 47 ml/min/1.73sqm Normal [facility] ([place]) Comment on above: Result Comment: GFR Population mean for , Non- Americans Ages 20-29 = 116 mL/min/1.73 sq.m. Ages 30-39 = 107 mL/min/1.73 sq.m. Ages 40-49 = 99 mL/min/1.73 sq.m. Ages 50-59 = 93 mL/min/1.73 sq.m. Ages 60-69 = 85 mL/min/1.73 sq.m. Ages 70+ = 75 mL/min/1.73 sq.m. Chronic Kidney Disease: Less than 60 mL/min/1.73 square meters End Stage Renal Disease: Less than 15 mL/min/1.73 square meters Performed By: #### C BC, ANEU, CMP, MDW, ADIFF, GFR, LIP ####[address] [place], [place] [address] .MDWon 05-27-2023 Monocyte Distribution Width 18.97 Normal 0.00-20.00 [facility] ([place]) Comment on above: Result Comment: For ED adult patients suspected of sepsis, MDW<=20.0 does not rule out sepsis or risk of sepsis Performed By: #### C BC, ANEU, CMP, MDW, ADIFF, GFR, LIP ####[address] [place], [place] [address] .NEUABSon 05-27-2023 Neutrophil, Absolute 6.1 10 3/mcL Normal 2.9-6.2 [facility] ([place]) Comment on above: Performed By: #### C BC, ANEU, CMP, MDW, ADIFF, GFR, LIP ####[address] [place], [place] [address] .Urinalysis Microscopic (AO) on 05-27-2023 UA Bacteria Trace Abnormal Pending sale to [facility] ([place]) Comment on above: Performed By: #### U AMICAO, UA ####[address] [place], [place] [address] UA RBC 0-5 Abnormal None Seen [facility] ([place]) Comment on above: Performed By: #### U FARZANEH UA ####[address]ie [address] [place], [place] [address] UA Squam Epithelial 15-25 Abnormal None Seen [facility] ([place]) Comment on above: Performed By: #### U FARZANEH UA ####[address] [place], [place] [address] UA WBC 0-5 Abnormal None Seen [facility] ([place]) Comment on above: Performed By: #### U FARZANEH UA ####[address] [place], [place] [address] CBCon 05-27-2023 Erythrocyte distribution width (RBC) [Ratio] 14.1 % Normal 11.5-14.5 [facility] ([place]) Comment on above: Performed By: #### C BC, ANEU, CMP, MDW, ADIFF, GFR, LIP ####[address] [place], [place] [address] Hematocrit (Bld) [Volume fraction] 31.2 % Low 37.0-47.0 [facility] ([place]) Comment on above: Performed By: #### C BC, PASCALE, CMP, MDW, ADIFF, GFR, LIP ####[address] [place], [place] [address] Hgb 10.7 G/dL Low 12.0-16.0 [facility] ([place]) Comment on above: Performed By: #### C BC, ANEU, CMP, MDW, ADIFF, GFR, LIP ####[address] [place], [place] [address] MCH (RBC) [Entitic mass] 31.1 pg Normal 27.0-31.2 [facility] ([place]) Comment on above: Performed By: #### C BC, ANEU, CMP, MDW, ADIFF, GFR, LIP ####[address] [place], [place] [address] MCHC 34.2 G/dL Normal 33.0-37.0 [facility] ([place]) Comment on above: Performed By: #### C BC, ANEU, CMP, MDW, ADIFF, GFR, LIP ####[address] [place], [place] [address] MCV (RBC) [Entitic vol] 91.0 fL Normal 80.0-94.0 [facility] ([place]) Comment on above: Performed By: #### C BC, ANEU, CMP, MDW, ADIFF, GFR, LIP ####[address] [place], [place] [address] Platelet 274 10 3/mcL Normal 130-400 Replaced by [facility] ([place]) Comment on above: Performed By: #### C BC, ANEU, CMP, MDW, ADIFF, GFR, LIP ####[address] [place], [place] [address] Platelet mean volume (Bld) [Entitic vol] 5.9 fL Low 7.4-10.4 Replaced by [facility] ([place]) Comment on above: Performed By: #### C BC, ANEU, CMP, MDW, ADIFF, GFR, LIP ####[address] [place], [place] [address] RBC 3.43 10 6/mcL Low 4.20-5.40 [facility] ([place]) Comment on above: Performed By: #### C BC, ANEU, CMP, MDW, ADIFF, GFR, LIP ####[address] [place], [place] [address] WBC 8.2 10 3/mcL Normal 4.6-10.8 Replaced by [facility] ([place]) Comment on above: Performed By: #### C BC, ANEU, CMP, MDW, ADIFF, GFR, LIP ####[address] [place], [place] [address] CMPon 05-27-2023 Albumin Level 3.0 G/dL Low 3.4-4.8 [facility] ([place]) Comment on above: Performed By: #### C BC, ANEU, CMP, MDW, ADIFF, GFR, LIP ####[address] [place], [place] [address] Albumin/Globulin [Mass ratio] 0.8 {ratio} Low 1.1-2.5 [facility] ([place]) Comment on above: Performed By: #### C BC, ANEU, CMP, MDW, ADIFF, GFR, LIP ####[address] [place], [place] [address] ALP [Catalytic activity/Vol] 46 U/L Normal 40-135 [facility] ([place]) Comment on above: Performed By: #### C BC, ANEU, CMP, MDW, ADIFF, GFR, LIP ####[address] [place], [place] [address] ALT [Catalytic activity/Vol] 55 U/L Normal 14-59 [facility] ([place]) Comment on above: Performed By: #### C BC, ANEU, CMP, MDW, ADIFF, GFR, LIP ####[address] [place], [place] [address] AST [Catalytic activity/Vol] 64 U/L High 10-40 [facility] ([place]) Comment on above: Performed By: #### C BC, ANEU, CMP, MDW, ADIFF, GFR, LIP ####[address] [place], [place] [address] Bili Total 0.4 mg/dL Normal 0.2-1.0 [facility] ([place]) Comment on above: Result Comment: Use of this assay is not recommended for patients undergoing treatment with eltrombopag due to the potential for falsely elevated results. Performed By: #### C BC, ANEU, CMP, MDW, ADIFF, GFR, LIP ####[address] [place], [place] [address] BUN/Creatinine Ratio 11 ratio Normal 7-27 [facility] ([place]) Comment on above: Performed By: #### C BC, ANEU, CMP, MDW, ADIFF, GFR, LIP ####[id number] [place], [place] [address] Calcium [Mass/Vol] 8.4 mg/dL Normal 8.4-10.2 [facility] ([place]) Comment on above: Performed By: #### C BC, ANEU, CMP, MDW, ADIFF, GFR, LIP ####[address] [place], [place] [address] Chloride [Moles/Vol] 99 mmol/L Normal 98-107 [facility] ([place]) Comment on above: Performed By: #### C BC, ANEU, CMP, MDW, ADIFF, GFR, LIP ####[address] [place], [place] [address] CO2 [Moles/Vol] 26 mmol/L Normal 23-31 [facility] ([place]) Comment on above: Performed By: #### C BC, ANEU, CMP, MDW, ADIFF, GFR, LIP ####[address] [place], [place] [address] Creatinine [Mass/Vol] 1.14 mg/dL High 0.55-1.02 [facility] ([place]) Comment on above: Performed By: #### C BC, ANEU, CMP, MDW, ADIFF, GFR, LIP ####[address] [place], [place] [address] Electrolyte Balance 7.0 mEq/L Normal 4.0-15.0 [facility] ([place]) Comment on above: Performed By: #### C BC, ANEU, CMP, MDW, ADIFF, GFR, LIP ####[address] [place], [place] [address] Globulin 3.7 G/dL Normal [facility] ([place]) Comment on above: Performed By: #### C BC, ANEU, CMP, MDW, ADIFF, GFR, LIP ####[address] [place], [place] [address] Glucose [Mass/Vol] 273 mg/dL High 83-110 [facility] ([place]) Comment on above: Performed By: #### C BC, ANEU, CMP, MDW, ADIFF, GFR, LIP ####[address] [place], [place] [address] Potassium [Moles/Vol] 4.3 mmol/L Normal 3.5-5.1 [facility] ([place]) Comment on above: Performed By: #### C BC, ANEU, CMP, MDW, ADIFF, GFR, LIP ####[id number] [place], [place] [address] Sodium [Moles/Vol] 132 mmol/L Low 136-145 [facility] ([place]) Comment on above: Performed By: #### C BC, ANEU, CMP, MDW, ADIFF, GFR, LIP ####[address] [place], [place] [address] Total Protein 6.7 G/dL Normal 6.4-8.2 [facility] ([place]) Comment on above: Performed By: #### C BC, ANEU, CMP, MDW, ADIFF, GFR, LIP ####[address] [place], [place] [address] Urea nitrogen [Mass/Vol] 13 mg/dL Normal 7-18 [facility] ([place]) Comment on above: Performed By: #### C BC, ANEU, CMP, MDW, ADIFF, GFR, LIP ####[address] [place], [place] [address] CT ABD/PELVIS W/ IV CONTRAST ONLYon 05-27-2023 CT ABD/PELVIS W/ IV CONTRAST ONLY ORIGINAL EXAMINATION: CT OF THE ABDOMEN AND PELVIS WITH CONTRAST 05/27/2023 1:00 pm TECHNIQUE: CT of the abdomen and pelvis was performed with the administration of intravenous contrast. Multiplanar reformatted images are provided for review. Automated exposure control, iterative reconstruction, and/or weight based adjustment of the mA/kV was utilized to reduce the radiation dose to as low as reasonably achievable. 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 Lung bases are unremarkable. Very small sliding hiatal hernia noted. Mild fatty infiltration of the liver is evident. No focal liver lesions seen. The spleen and right adrenal gland are normal. There is mild prominence of the left adrenal gland, probably hyperplasia. This is similar to the previous study. Pancreas is unremarkable. A small right renal cyst is evident. Leidy hepatis lymph nodes are noted, considered within normal limits for this location. No adenopathy, free air, or free fluid is evident. The solid pelvic organs are unremarkable. There is very minor thickening of the right lateral urinary bladder wall, without a focal mass identified. Rectal anastomosis is evident from previous surgery. There is a small fat containing periumbilical hernia noted, containing a portion of the transverse colon. No evidence for obstruction. No other GI tract abnormality seen. There is some subcutaneous induration at the lower anterior abdominal wall. This could represent bruising, previous injections, or even cellulitis. No additional contributory abnormality seen. IMPRESSION: 1. No acute abnormality identified. 2. Small periumbilical hernia containing minimal transverse colon, without obstruction. 3. Induration of the lower anterior abdominal wall. Cellulitis is not excluded and clinical assessment is needed. Interpreted by: Abiel Gonzalez MD Preliminary Report By: Abiel Gonzalez MD Electronically signed By Abiel Gonzalez MD Dictated Date: 05/27/2023 1:03:00 PM Prelim Date: 05/27/2023 1:05:47 PM Sign Date: 05/27/2023 1:05:47 PM Ordering Provider: YUSRA STOCKTON [facility] ([place]) LABORATORYOrdered By: SYSTEM SYSTEM on 05-27-2023 Albumin BCP dye [Mass/Vol] 3.0 G/dL Invalid Interpretation Code 3.4 - 4.8 G/dL AO ADM SS Albumin/Globulin [Mass ratio] 0.8 {ratio} Invalid Interpretation Code 1.1 - 2.5 ratio AO ADM SS ALP [Catalytic activity/Vol] 46 U/L Invalid Interpretation Code 40 - 135 U/L AO ADM SS ALT With P-5'-P [Catalytic activity/Vol] 55 U/L Invalid Interpretation Code 14 - 59 U/L AO ADM SS AST With P-5'-P [Catalytic activity/Vol] 64 U/L Invalid Interpretation Code 10 - 40 U/L AO ADM SS Basophil, Absolute 0.0 103/mcL Invalid Interpretation Code 0.0 - 0.2 10^3/mcL AO Workflow SS Basophils/100 WBC (Bld) 0.3 % Invalid Interpretation Code 0.0 - 2.5 % AO Workflow SS Bilirubin [Mass/Vol] 0.4 mg/dL Invalid Interpretation Code 0.2 - 1.0 mg/dL AO ADM SS Comment on above: Interpretive Data: U se of this assay is not recommended for patients undergoing treatment with eltrombopag due to the potential for falsely elevated results. Calcium [Mass/Vol] 8.4 mg/dL Invalid Interpretation Code 8.4 - 10.2 mg/dL AO ADM SS Chloride [Moles/Vol] 99 mmol/L Invalid Interpretation Code 98 - 107 mmol/L AO ADM SS CO2 [Moles/Vol] 26 mmol/L Invalid Interpretation Code 23 - 31 mmol/L AO ADM SS Creatinine [Mass/Vol] 1.14 mg/dL Invalid Interpretation Code 0.55 - 1.02 mg/dL AO ADM SS Electrolyte Balance 7.0 mEq/L Invalid Interpretation Code 4.0 - 15.0 mEq/L AO ADM SS Eosinophil, Absolute 0.1 103/mcL Invalid Interpretation Code 0.0 - 0.4 10^3/mcL AO Workflow SS Eosinophils/100 WBC (Bld) 0.7 % Invalid Interpretation Code 0.0 - 7.0 % AO Workflow SS Erythrocyte distribution width (RBC) [Ratio] 14.1 % Invalid Interpretation Code 11.5 - 14.5 % AO Workflow SS GFR/1.73 sq M.predicted among blacks MDRD (S/P/Bld) [Vol rate/Area] 56 ml/min/1.73sqm Invalid Interpretation Code AO Chemistry S Comment on above: Interpretive Data: GFR Population mean for , Non- Americans Ages 20-29 = 116 mL/min/1.73 sq.m. Ages 30-39 = 107 mL/min/1.73 sq.m. Ages 40-49 = 99 mL/min/1.73 sq.m. Ages 50-59 = 93 mL/min/1.73 sq.m. Ages 60-69 = 85 mL/min/1.73 sq.m. Ages 70+ = 75 mL/min/1.73 sq.m. Chronic Kidney Disease: Less than 60 mL/min/1.73 square meters End Stage Renal Disease: Less than 15 mL/min/1.73 square meters GFR/1.73 sq M.predicted among non-blacks MDRD (S/P/Bld) [Vol rate/Area] 47 ml/min/1.73sqm Invalid Interpretation Code AO Chemistry S Comment on above: Interpretive Data: GFR Population mean for , Non- Americans Ages 20-29 = 116 mL/min/1.73 sq.m. Ages 30-39 = 107 mL/min/1.73 sq.m. Ages 40-49 = 99 mL/min/1.73 sq.m. Ages 50-59 = 93 mL/min/1.73 sq.m. Ages 60-69 = 85 mL/min/1.73 sq.m. Ages 70+ = 75 mL/min/1.73 sq.m. Chronic Kidney Disease: Less than 60 mL/min/1.73 square meters End Stage Renal Disease: Less than 15 mL/min/1.73 square meters Globulin 3.7 G/dL Invalid Interpretation Code AO ADM SS Glucose [Mass/Vol] 273 mg/dL Invalid Interpretation Code 83 - 110 mg/dL AO ADM SS Hematocrit (Bld) [Volume fraction] 31.2 % Invalid Interpretation Code 37.0 - 47.0 % AO Workflow SS Hemoglobin (Bld) [Mass/Vol] 10.7 G/dL Invalid Interpretation Code 12.0 - 16.0 G/dL AO Workflow SS Lipase [Catalytic activity/Vol] 28 U/L Invalid Interpretation Code 16 - 77 U/L AO ADM SS Lymphocyte, Absolute 1.5 103/mcL Invalid Interpretation Code 0.8 - 3.9 10^3/mcL AO Workflow SS Lymphocytes/100 WBC (Bld) 18.9 % Invalid Interpretation Code 10.0 - 50.0 % AO Workflow SS MCH (RBC) [Entitic mass] 31.1 pg Invalid Interpretation Code 27.0 - 31.2 pg AO Workflow SS MCHC 34.2 G/dL Invalid Interpretation Code 33.0 - 37.0 G/dL AO Workflow SS MCV (RBC) [Entitic vol] 91.0 fL Invalid Interpretation Code 80.0 - 94.0 fL AO Workflow SS Monocyte distribution width Auto (Bld) [Entitic vol] 18.97 1 Invalid Interpretation Code 0.00 - 20.00 AO Workflow SS Comment on above: Result Comment: For ED adult patients suspected of sepsis, MDW<=20.0 does not rule out sepsis or risk of sepsis Monocyte, Absolute 0.5 103/mcL Invalid Interpretation Code 0.2 - 1.0 10^3/mcL AO Workflow SS Monocytes/100 WBC (Bld) 5.6 % Invalid Interpretation Code 1.7 - 13.0 % AO Workflow SS Neutrophil, Absolute 6.1 103/mcL Invalid Interpretation Code 2.9 - 6.2 10^3/mcL AO Workflow SS Neutrophils/100 WBC (Bld) 74.5 % Invalid Interpretation Code 37.0 - 80.0 % AO Workflow SS Platelet mean volume (Bld) [Entitic vol] 5.9 fL Invalid Interpretation Code 7.4 - 10.4 fL AO Workflow SS Platelets (Bld) [#/Vol] 274 103/mcL Invalid Interpretation Code 130 - 400 10^3/mcL AO Workflow SS Potassium [Moles/Vol] 4.3 mmol/L Invalid Interpretation Code 3.5 - 5.1 mmol/L AO ADM SS Protein [Mass/Vol] 6.7 G/dL Invalid Interpretation Code 6.4 - 8.2 G/dL AO ADM SS RBC (Bld) [#/Vol] 3.43 106/mcL Invalid Interpretation Code 4.20 - 5.40 10^6/mcL AO Workflow SS Sodium [Moles/Vol] 132 mmol/L Invalid Interpretation Code 136 - 145 mmol/L AO ADM SS Urea nitrogen [Mass/Vol] 13 mg/dL Invalid Interpretation Code 7 - 18 mg/dL AO ADM SS Urea nitrogen/Creatinine [Mass ratio] 11 ratio Invalid Interpretation Code 7 - 27 ratio AO ADM SS WBC (Bld) [#/Vol] 8.2 103/mcL Invalid Interpretation Code 4.6 - 10.8 10^3/mcL AO Workflow SS LABORATORYOrdered By: Rita Gordillo on 05-27-2023 Appearance (U) Clear (05/27/23 10:58 AM) Invalid Interpretation Code Clear AO Auto Urine SS Bacteria LM.HPF (Urine sed) [#/Area] Trace /HPF Invalid Interpretation Code AO Auto Urine SS Bilirubin Ql (U) Negative (05/27/23 10:58 AM) Invalid Interpretation Code Negative AO Auto Urine SS Color (U) Yellow (05/27/23 10:58 AM) Invalid Interpretation Code AO Auto Urine SS Glucose Test strip (U) [Mass/Vol] 250 mg/dL Invalid Interpretation Code Negative AO Auto Urine SS Hemoglobin Auto test strip (U) [Mass/Vol] Small *ABN* (05/27/23 10:58 AM) Invalid Interpretation Code Negative AO Auto Urine SS Ketones Ql (U) Negative Invalid Interpretation Code Negative AO Auto Urine SS UA Leuk Est Negative (05/27/23 10:58 AM) Invalid Interpretation Code Negative AO Auto Urine SS UA Nitrite Negative (05/27/23 10:58 AM) Invalid Interpretation Code Negative AO Auto Urine SS UA pH 6.0 (05/27/23 10:58 AM) Invalid Interpretation Code 5.0 - 8.0 AO Auto Urine SS UA Protein 30 mg/dL Invalid Interpretation Code Negative AO Auto Urine SS UA RBC 0-5 /HPF Invalid Interpretation Code None Seen AO Auto Urine SS UA Spec Grav 1.010 *ABN* (05/27/23 10:58 AM) Invalid Interpretation Code 1.015-1.025 AO Auto Urine SS UA Specimen Type Clean Catch (05/27/23 10:58 AM) Invalid Interpretation Code AO Auto Urine SS UA Squam Epithelial 15-25 /HPF Invalid Interpretation Code None Seen AO Auto Urine SS UA Urobilinogen 0.2 E.U./dL Invalid Interpretation Code 0.2-1.0 AO Auto Urine SS WBC LM.HPF (Urine sed) [#/Area] 0-5 /HPF Invalid Interpretation Code None Seen AO Auto Urine SS LIPon 05-27-2023 Lipase Level 28 U/L Normal 16-77 Replaced by [facility] ([place]) Comment on above: Performed By: #### C BC, ANEU, CMP, MDW, ADIFF, GFR, LIP ####[address] [place], [place] [address] UAon 05-27-2023 Color (U) Yellow Normal [facility] ([place]) Comment on above: Performed By: #### U AMICAO, UA ####[address] [place], [place] [address] Glucose (U) [Mass/Vol] 250 mg/dL Abnormal Negative [facility] ([place]) Comment on above: Performed By: #### U AMICAO, UA ####[address] [place], [place] [address] Ketones Ql (U) Negative Normal Negative [facility] ([place]) Comment on above: Performed By: #### U AMICAO, UA ####[address] [place], [place] [address] UA Appear Clear Normal Clear [facility] ([place]) Comment on above: Performed By: #### U AMICAO, UA ####[id number] [place], [place] [address] UA Blood Small Abnormal Negative [facility] ([place]) Comment on above: Performed By: #### U AMICAO, UA ####[address] [place], [place] [address] UA Leuk Est Negative Normal Negative [facility] ([place]) Comment on above: Performed By: #### U AMICAO, UA ####[address] [place], [place] [address] UA Nitrite Negative Normal Negative [facility] ([place]) Comment on above: Performed By: #### U AMICAO, UA ####[address] [place], [place] [address] UA pH 6.0 Normal 5.0 - 8.0 [facility] ([place]) Comment on above: Performed By: #### U AMICAO, UA ####[address] [place] [address] UA Protein 30 mg/dL Normal Negative [facility] ([place]) Comment on above: Performed By: #### U AMICAO, UA ####[address] [place], [place] [address] UA Spec Grav 1.010 Abnormal 1.015-1.025 [facility] ([place]) Comment on above: Performed By: #### U AMICAO, UA ####[address] [place], [place] [address] UA Specimen Type Clean Catch Normal [facility] ([place]) Comment on above: Performed By: #### U AMICAO, UA ####[address] [place], [place] [address] UA Urobilinogen 0.2 E.U./dL Normal 0.2-1.0 [facility] ([place]) Comment on above: Performed By: #### U AMICAO, UA ####[address] [place], [place] [address] Urobilinogen (U) [Mass/Vol] Negative Normal Negative [facility] ([place]) Comment on above: Performed By: #### U EVANGELINA MOY ####[address] [place], [place] [address] AZTREONAM:SUSC:PT:ISOLATE:OR DQN:MICon 05-19-2023 Aztreonam MONY [Susc] >100,000 cfu/ml Klebsiella pneumoniae [facility] Aztreonam MONY [Susc]on 05-19 Klebsiella pneumoniae Klebsiella pneumoniae [facility] US ABDOMEN LIMITEDon 023 US ABDOMEN LIMITED ORIGINAL EXAMINATION: RIGHT UPPER QUADRANT ULTRASOUND 05/17/2023 8:18 am COMPARISON: Prior CT abdomen pelvis dated 07/09/2017. HISTORY: ORDERING SYSTEM PROVIDED HISTORY: Reason for Exam: elevated liver enzymes FINDINGS: LIVER: The liver demonstrates increased echogenicity without evidence of intrahepatic biliary ductal dilatation. BILIARY SYSTEM: Gallbladder is contracted, limiting its evaluation. Within this limitation there is no evidence of pericholecystic fluid or stones. Negative sonographic Loera's sign. Common bile duct is within normal limits measuring 5 mm. RIGHT KIDNEY: The right kidney is grossly unremarkable without evidence of hydronephrosis. 1.0 cm simple right renal cyst is noted. PANCREAS: Visualized portions of the pancreas are unremarkable. The tail of the pancreas is limited secondary to overlying bowel gas. OTHER: No evidence of right upper quadrant ascites. IMPRESSION: Increased echogenicity of the liver on the basis of hepatic steatosis versus other hepatocellular disease. Interpreted by: Chon Flores MD Preliminary Report By: Chon Flores MD Electronically signed By Chon Flores MD Dictated Date: 05/18/2023 8:45:38 AM Prelim Date: 05/18/2023 8:47:36 AM Sign Date: 05/18/2023 8:47:36 AM Ordering Provider: TERRIE Ashley [facility] ([place]) .Auto Diffon 05-10-2023 Basophil, Absolute 0.1 10 3/mcL Normal 0.0-0.2 [facility] ([place]) Comment on above: Performed By: #### C MP, ANEU, LIPID, ADIFF, GFR, CBC, A1C ####[address] [place], [place] [address] Basophils/100 WBC (Bld) 1.0 % Normal 0.0-2.5 [facility] ([place]) Comment on above: Performed By: #### C MP, ANEU, LIPID, ADIFF, GFR, CBC, A1C ####[address] [place], [place] [address] Eosinophil, Absolute 0.2 10 3/mcL Normal 0.0-0.4 [facility] ([place]) Comment on above: Performed By: #### C MP, ANEU, LIPID, ADIFF, GFR, CBC, A1C ####[address] [place], [place] [address] Eosinophils/100 WBC (Bld) 3.7 % Normal 0.0-7.0 [facility] ([place]) Comment on above: Performed By: #### C MP, ANEU, LIPID, ADIFF, GFR, CBC, A1C ####[address] [place], [place] [address] Lymphocyte, Absolute 2.4 10 3/mcL Normal 0.8-3.9 [facility] ([place]) Comment on above: Performed By: #### C MP, ANEU, LIPID, ADIFF, GFR, CBC, A1C ####[address] [place], [place] [address] Lymphocytes/100 WBC (Bld) 42.4 % Normal 10.0-50.0 [facility] ([place]) Comment on above: Performed By: #### C MP, ANEU, LIPID, ADIFF, GFR, CBC, A1C ####[address] [place], [place] [address] Monocyte, Absolute 0.4 10 3/mcL Normal 0.2-1.0 [facility] ([place]) Comment on above: Performed By: #### C MP, ANEU, LIPID, ADIFF, GFR, CBC, A1C ####[address] [place], [place] [address] Monocytes/100 WBC (Bld) 7.5 % Normal 1.7-13.0 [facility] ([place]) Comment on above: Performed By: #### C MP, ANEU, LIPID, ADIFF, GFR, CBC, A1C ####[address] [place], [place] [address] Neutrophils/100 WBC (Bld) 45.4 % Normal 37.0-80.0 [facility] ([place]) Comment on above: Performed By: #### C MP, ANEU, LIPID, ADIFF, GFR, CBC, A1C ####[address] [place], [place] [address] .GFRon 05-10-2023 GFR 58 ml/min/1.73sqm Normal [facility] ([place]) Comment on above: Result Comment: GFR Population mean for , Non- Americans Ages 20-29 = 116 mL/min/1.73 sq.m. Ages 30-39 = 107 mL/min/1.73 sq.m. Ages 40-49 = 99 mL/min/1.73 sq.m. Ages 50-59 = 93 mL/min/1.73 sq.m. Ages 60-69 = 85 mL/min/1.73 sq.m. Ages 70+ = 75 mL/min/1.73 sq.m. Chronic Kidney Disease: Less than 60 mL/min/1.73 square meters End Stage Renal Disease: Less than 15 mL/min/1.73 square meters Performed By: #### C MP, ANEU, LIPID, ADIFF, GFR, CBC, A1C ####[address] [place], [place] [address] GFR Non- 48 ml/min/1.73sqm Normal [facility] ([place]) Comment on above: Result Comment: GFR Population mean for , Non- Americans Ages 20-29 = 116 mL/min/1.73 sq.m. Ages 30-39 = 107 mL/min/1.73 sq.m. Ages 40-49 = 99 mL/min/1.73 sq.m. Ages 50-59 = 93 mL/min/1.73 sq.m. Ages 60-69 = 85 mL/min/1.73 sq.m. Ages 70+ = 75 mL/min/1.73 sq.m. Chronic Kidney Disease: Less than 60 mL/min/1.73 square meters End Stage Renal Disease: Less than 15 mL/min/1.73 square meters Performed By: #### C MP, ANEU, LIPID, ADIFF, GFR, CBC, A1C ####[address] [place], [place] [address] .NEUABSon 05-10-2023 Neutrophil, Absolute 2.5 10 3/mcL Low 2.9-6.2 [facility] ([place]) Comment on above: Performed By: #### C MP, ANEU, LIPID, ADIFF, GFR, CBC, A1C ####[address] [place], [place] [address] A1Con 05-10-2023 HbA1c (Bld) [Mass fraction] 8.3 % High 4.3-6.4 [facility] ([place]) Comment on above: Performed By: #### C MP, ANEU, LIPID, ADIFF, GFR, CBC, A1C ####[address] [place], [place] [address] CBCon 05-10-2023 Erythrocyte distribution width (RBC) [Ratio] 14.2 % Normal 11.5-14.5 [facility] ([place]) Comment on above: Performed By: #### C MP, ANEU, LIPID, ADIFF, GFR, CBC, A1C ####[address] [place], [place] [address] Hematocrit (Bld) [Volume fraction] 32.3 % Low 37.0-47.0 [facility] ([place]) Comment on above: Performed By: #### C MP, ANEU, LIPID, ADIFF, GFR, CBC, A1C ####[address] [place], [place] [address] Hgb 11.1 G/dL Low 12.0-16.0 [facility] ([place]) Comment on above: Performed By: #### C MP, ANEU, LIPID, ADIFF, GFR, CBC, A1C ####[address] [place], [place] [address] MCH (RBC) [Entitic mass] 31.4 pg High 27.0-31.2 [facility] ([place]) Comment on above: Performed By: #### C MP, ANEU, LIPID, ADIFF, GFR, CBC, A1C ####[address] [place], [place] [address] MCHC 34.3 G/dL Normal 33.0-37.0 [facility] ([place]) Comment on above: Performed By: #### C MP, ANEU, LIPID, ADIFF, GFR, CBC, A1C ####[address] [place], [place] [address] MCV (RBC) [Entitic vol] 91.5 fL Normal 80.0-94.0 [facility] ([place]) Comment on above: Performed By: #### C MP, ANEU, LIPID, ADIFF, GFR, CBC, A1C ####[address] [place], [place] [address] Platelet 271 10 3/mcL Normal 130-400 Replaced by [facility] ([place]) Comment on above: Performed By: #### C MP, ANEU, LIPID, ADIFF, GFR, CBC, A1C ####[address] [place], [place] [address] Platelet mean volume (Bld) [Entitic vol] 6.1 fL Low 7.4-10.4 Replaced by [facility] ([place]) Comment on above: Performed By: #### C MP, ANEU, LIPID, ADIFF, GFR, CBC, A1C ####[address] [place], [place] [address] RBC 3.53 10 6/mcL Low 4.20-5.40 [facility] ([place]) Comment on above: Performed By: #### C MP, ANEU, LIPID, ADIFF, GFR, CBC, A1C ####[address] [place], [place] [address] WBC 5.5 10 3/mcL Normal 4.6-10.8 Replaced by [facility] ([place]) Comment on above: Performed By: #### C MP, ANEU, LIPID, ADIFF, GFR, CBC, A1C ####[address] [place], [place] [address] CMPon 05-10-2023 Albumin Level 3.1 G/dL Low 3.4-4.8 [facility] ([place]) Comment on above: Performed By: #### C MP, ANEU, LIPID, ADIFF, GFR, CBC, A1C ####[address] [place], [place] [address] Albumin/Globulin [Mass ratio] 0.8 {ratio} Low 1.1-2.5 [facility] ([place]) Comment on above: Performed By: #### C MP, ANEU, LIPID, ADIFF, GFR, CBC, A1C ####[address] [place], [place] [address] ALP [Catalytic activity/Vol] 39 U/L Low 40-135 [facility] ([place]) Comment on above: Performed By: #### C MP, ANEU, LIPID, ADIFF, GFR, CBC, A1C ####[address] [place], [place] [address] ALT [Catalytic activity/Vol] 75 U/L High 14-59 [facility] ([place]) Comment on above: Performed By: #### C MP, ANEU, LIPID, ADIFF, GFR, CBC, A1C ####[address] [place], [place] [address] AST [Catalytic activity/Vol] 91 U/L High 10-40 [facility] ([place]) Comment on above: Performed By: #### C MP, ANEU, LIPID, ADIFF, GFR, CBC, A1C ####[address] [place], [place] [address] Bili Total 0.4 mg/dL Normal 0.2-1.0 [facility] ([place]) Comment on above: Result Comment: Use of this assay is not recommended for patients undergoing treatment with eltrombopag due to the potential for falsely elevated results. Performed By: #### C MP, ANEU, LIPID, ADIFF, GFR, CBC, A1C ####[address] [place], [place] [address] BUN/Creatinine Ratio 12 ratio Normal 7-27 [facility] ([place]) Comment on above: Performed By: #### C MP, ANEU, LIPID, ADIFF, GFR, CBC, A1C ####[address] [place], [place] [address] Calcium [Mass/Vol] 8.6 mg/dL Normal 8.4-10.2 [facility] ([place]) Comment on above: Performed By: #### C MP, ANEU, LIPID, ADIFF, GFR, CBC, A1C ####[address] [place], [place] [address] Chloride [Moles/Vol] 102 mmol/L Normal 98-107 [facility] ([place]) Comment on above: Performed By: #### C MP, ANEU, LIPID, ADIFF, GFR, CBC, A1C ####[address] [place], [place] [address] CO2 [Moles/Vol] 27 mmol/L Normal 23-31 [facility] ([place]) Comment on above: Performed By: #### C MP, ANEU, LIPID, ADIFF, GFR, CBC, A1C ####[address] [place], [place] [address] Creatinine [Mass/Vol] 1.11 mg/dL High 0.55-1.02 [facility] ([place]) Comment on above: Performed By: #### C MP, ANEU, LIPID, ADIFF, GFR, CBC, A1C ####[address] [place], [place] [address] Electrolyte Balance 10.0 mEq/L Normal 4.0-15.0 [facility] ([place]) Comment on above: Performed By: #### C MP, ANEU, LIPID, ADIFF, GFR, CBC, A1C ####[address] [place], [place] [address] Globulin 3.7 G/dL Normal [facility] ([place]) Comment on above: Performed By: #### C MP, ANEU, LIPID, ADIFF, GFR, CBC, A1C ####[address] [place], [place] [address] Glucose [Mass/Vol] 157 mg/dL High 83-110 [facility] ([place]) Comment on above: Performed By: #### C MP, ANEU, LIPID, ADIFF, GFR, CBC, A1C ####[address] [place], [place] [address] Potassium [Moles/Vol] 4.7 mmol/L Normal 3.5-5.1 [facility] ([place]) Comment on above: Performed By: #### C MP, ANEU, LIPID, ADIFF, GFR, CBC, A1C ####[address] [place], [place] [address] Sodium [Moles/Vol] 139 mmol/L Normal 136-145 [facility] ([place]) Comment on above: Performed By: #### C MP, ANEU, LIPID, ADIFF, GFR, CBC, A1C ####[address] [place], [place] [address] Total Protein 6.8 G/dL Normal 6.4-8.2 [facility] ([place]) Comment on above: Performed By: #### C MP, ANEU, LIPID, ADIFF, GFR, CBC, A1C ####[address] [place], [place] [address] Urea nitrogen [Mass/Vol] 13 mg/dL Normal 7-18 [facility] ([place]) Comment on above: Performed By: #### C MP, ANEU, LIPID, ADIFF, GFR, CBC, A1C ####[address] [place], [place] [address] LIPIDon 05-10-2023 Cholesterol [Mass/Vol] 129 mg/dL Normal 0-200 [facility] ([place]) Comment on above: Result Comment: Chol esterol Reference Interval: Less than 200 Desirable 200-239 Borderline high risk 240 and above High risk Performed By: #### C MP, ANEU, LIPID, ADIFF, GFR, CBC, A1C ####[address] [place], [place] [address] Cholesterol in HDL [Mass/Vol] 48 mg/dL Normal 40-60 [facility] [facility] ([place]) Comment on above: Performed By: #### C MP, ANEU, LIPID, ADIFF, GFR, CBC, A1C ####[address] [place], [place] [address] Cholesterol in LDL [Mass/Vol] 64 mg/dL Normal 0-130 [facility] ([place]) Comment on above: Performed By: #### C MP, ANEU, LIPID, ADIFF, GFR, CBC, A1C ####[id number] [place], [place] [address] Triglyceride [Mass/Vol] 87 mg/dL Normal 0-150 [facility] ([place]) Comment on above: Result Comment: Trig lyceride Reference Interval: Less than 150 Normal 150-199 Borderline high risk 200-499 High risk 500 or higher Very high risk Performed By: #### C MP, ANEU, LIPID, ADIFF, GFR, CBC, A1C ####[id number] [place], [place] [address] LABORATORYOrdered By: SYSTEM SYSTEM on 09-02-2022 Albumin BCP dye [Mass/Vol] 3.2 G/dL Invalid Interpretation Code 3.4 - 4.8 G/dL AO ADM SS Albumin/Globulin [Mass ratio] 0.8 {ratio} Invalid Interpretation Code 1.1 - 2.5 ratio AO ADM SS ALP [Catalytic activity/Vol] 38 U/L Invalid Interpretation Code 40 - 135 U/L AO ADM SS ALT With P-5'-P [Catalytic activity/Vol] 57 U/L Invalid Interpretation Code 14 - 59 U/L AO ADM SS AST With P-5'-P [Catalytic activity/Vol] 68 U/L Invalid Interpretation Code 10 - 40 U/L AO ADM SS Bilirubin [Mass/Vol] 0.3 mg/dL Invalid Interpretation Code 0.2 - 1.0 mg/dL AO ADM SS Calcium [Mass/Vol] 9.2 mg/dL Invalid Interpretation Code 8.4 - 10.2 mg/dL AO ADM SS Chloride [Moles/Vol] 103 mmol/L Invalid Interpretation Code 98 - 107 mmol/L AO ADM SS CO2 [Moles/Vol] 28 mmol/L Invalid Interpretation Code 23 - 31 mmol/L AO ADM SS Creatinine [Mass/Vol] 1.20 mg/dL Invalid Interpretation Code 0.55 - 1.02 mg/dL AO ADM SS Electrolyte Balance 6.0 mEq/L Invalid Interpretation Code 4.0 - 15.0 mEq/L AO ADM SS GFR 53 ml/min/1.73sqm Invalid Interpretation Code AO Chemistry S GFR Non- 44 ml/min/1.73sqm Invalid Interpretation Code AO Chemistry S Globulin 3.8 G/dL Invalid Interpretation Code AO ADM SS Glucose [Mass/Vol] 127 mg/dL Invalid Interpretation Code 83 - 110 mg/dL AO ADM SS HbA1c (Bld) [Mass fraction] 7.9 % Invalid Interpretation Code 4.3 - 6.4 % AO ADM SS Magnesium [Mass/Vol] 1.6 mg/dL Invalid Interpretation Code 1.8 - 2.4 mg/dL AO ADM SS Potassium [Moles/Vol] 4.7 mmol/L Invalid Interpretation Code 3.5 - 5.1 mmol/L AO ADM SS Protein [Mass/Vol] 7.0 G/dL Invalid Interpretation Code 6.4 - 8.2 G/dL AO ADM SS Sodium [Moles/Vol] 137 mmol/L Invalid Interpretation Code 136 - 145 mmol/L AO ADM SS TSH Qn 2.45 m[IU]/L Invalid Interpretation Code 0.36 - 3.74 mcIU/mL AO ADM SS Urea nitrogen [Mass/Vol] 17 mg/dL Invalid Interpretation Code 7 - 18 mg/dL AO ADM SS Urea nitrogen/Creatinine [Mass ratio] 14 ratio Invalid Interpretation Code 7 - 27 ratio AO ADM SS Vit. D 25-Hydroxy 95.5 ng/mL Invalid Interpretation Code AO ADM SS LABORATORYOrdered By: Jacqui Willams on 09-02-2022 Albumin DL <= 20 mg/L (U) [Mass/Vol] 50607 mcg/dL Invalid Interpretation Code AO ADM SS Albumin/Creatinine DL <= 20 mg/L (U) [Mass ratio] 99 mcg/mg Invalid Interpretation Code 0 - 30 mcg/mg AO ADM SS Creatinine (U) [Mass/Vol] 138.5 mg/dL Invalid Interpretation Code 28.0 - 117.0 mg/dL AO ADM SS LABORATORYOrdered By: Liseth Calderon on 09-02-2022 Basophil, Absolute 0.1 103/mcL Invalid Interpretation Code 0.0 - 0.2 10^3/mcL AO Workflow SS Basophils/100 WBC (Bld) 1.0 % Invalid Interpretation Code 0.0 - 2.5 % AO Workflow SS Cholesterol [Mass/Vol] 124 mg/dL Invalid Interpretation Code 0 - 200 mg/dL AO ADM SS Cholesterol in HDL [Mass/Vol] 48 mg/dL Invalid Interpretation Code 40 - 60 mg/dL AO ADM SS Cholesterol in LDL [Mass/Vol] 59 mg/dL Invalid Interpretation Code 0 - 130 mg/dL AO ADM SS Eosinophil, Absolute 0.4 103/mcL Invalid Interpretation Code 0.0 - 0.4 10^3/mcL AO Workflow SS Eosinophils/100 WBC (Bld) 6.5 % Invalid Interpretation Code 0.0 - 7.0 % AO Workflow SS Erythrocyte distribution width (RBC) [Ratio] 13.6 % Invalid Interpretation Code 11.5 - 14.5 % AO Workflow SS Hematocrit (Bld) [Volume fraction] 32.9 % Invalid Interpretation Code 37.0 - 47.0 % AO Workflow SS Hemoglobin (Bld) [Mass/Vol] 11.2 G/dL Invalid Interpretation Code 12.0 - 16.0 G/dL AO Workflow SS Lymphocyte, Absolute 2.0 103/mcL Invalid Interpretation Code 0.8 - 3.9 10^3/mcL AO Workflow SS Lymphocytes/100 WBC (Bld) 33.9 % Invalid Interpretation Code 10.0 - 50.0 % AO Workflow SS MCH (RBC) [Entitic mass] 30.8 pg Invalid Interpretation Code 27.0 - 31.2 pg AO Workflow SS MCHC 33.9 G/dL Invalid Interpretation Code 33.0 - 37.0 G/dL AO Workflow SS MCV (RBC) [Entitic vol] 90.8 fL Invalid Interpretation Code 80.0 - 94.0 fL AO Workflow SS Monocyte, Absolute 0.4 103/mcL Invalid Interpretation Code 0.2 - 1.0 10^3/mcL AO Workflow SS Monocytes/100 WBC (Bld) 6.9 % Invalid Interpretation Code 1.7 - 13.0 % AO Workflow SS Neutrophil, Absolute 3.1 103/mcL Invalid Interpretation Code 2.9 - 6.2 10^3/mcL AO Workflow SS Neutrophils/100 WBC (Bld) 51.7 % Invalid Interpretation Code 37.0 - 80.0 % AO Workflow SS Platelet mean volume (Bld) [Entitic vol] 6.2 fL Invalid Interpretation Code 7.4 - 10.4 fL AO Workflow SS Platelets (Bld) [#/Vol] 272 103/mcL Invalid Interpretation Code 130 - 400 10^3/mcL AO Workflow SS RBC (Bld) [#/Vol] 3.62 106/mcL Invalid Interpretation Code 4.20 - 5.40 10^6/mcL AO Workflow SS Triglyceride [Mass/Vol] 86 mg/dL Invalid Interpretation Code 0 - 150 mg/dL AO ADM SS WBC (Bld) [#/Vol] 6.0 103/mcL Invalid Interpretation Code 4.6 - 10.8 10^3/mcL AO Workflow SS RETIC COUNTon 07-07-2022 Reticulocytes (Bld) [#/Vol] 0.07264 10*3/uL 0.018 - 0.100 M/uL [facility] Reticulocytes (Bld) [#/Vol]o n 07-07-2022 Reticulocytes/100 RBC (Bld) 1.5 % 0.4 - 2.0 % [facility] LABORATORYOrdered By: SYSTEM SYSTEM on 04-03-2022 25-hydroxyvitamin D3 [Mass/Vol] 48.8 ng/mL Invalid Interpretation Code AH ADM SS GFR 58 ml/min/1.73sqm Invalid Interpretation Code AO Chemistry S GFR Non- 48 ml/min/1.73sqm Invalid Interpretation Code AO Chemistry S LABORATORYOrdered By: Jacqui Willams on 04-03-2022 Albumin BCP dye [Mass/Vol] 3.2 G/dL Invalid Interpretation Code 3.4 - 4.8 G/dL AO ADM SS Albumin/Globulin [Mass ratio] 0.9 {ratio} Invalid Interpretation Code 1.1 - 2.5 ratio AO ADM SS ALP [Catalytic activity/Vol] 41 U/L Invalid Interpretation Code 40 - 135 U/L AO ADM SS ALT With P-5'-P [Catalytic activity/Vol] 72 U/L Invalid Interpretation Code 14 - 59 U/L AO ADM SS AST With P-5'-P [Catalytic activity/Vol] 78 U/L Invalid Interpretation Code 10 - 40 U/L AO ADM SS Basophil, Absolute 0.0 103/mcL Invalid Interpretation Code 0.0 - 0.2 10^3/mcL AO Workflow SS Basophils/100 WBC (Bld) 0.7 % Invalid Interpretation Code 0.0 - 2.5 % AO Workflow SS Bilirubin [Mass/Vol] 0.4 mg/dL Invalid Interpretation Code 0.2 - 1.0 mg/dL AO ADM SS Calcium [Mass/Vol] 9.6 mg/dL Invalid Interpretation Code 8.4 - 10.2 mg/dL AO ADM SS Chloride [Moles/Vol] 104 mmol/L Invalid Interpretation Code 98 - 107 mmol/L AO ADM SS Cholesterol [Mass/Vol] 118 mg/dL Invalid Interpretation Code 0 - 200 mg/dL AO ADM SS Cholesterol in HDL [Mass/Vol] 43 mg/dL Invalid Interpretation Code 40 - 60 mg/dL AO ADM SS Cholesterol in LDL [Mass/Vol] 59 mg/dL Invalid Interpretation Code 0 - 130 mg/dL AO ADM SS CO2 [Moles/Vol] 30 mmol/L Invalid Interpretation Code 23 - 31 mmol/L AO ADM SS Creatinine [Mass/Vol] 1.11 mg/dL Invalid Interpretation Code 0.55 - 1.02 mg/dL AO ADM SS Electrolyte Balance 7.0 mEq/L Invalid Interpretation Code 4.0 - 15.0 mEq/L AO ADM SS Eosinophil, Absolute 0.2 103/mcL Invalid Interpretation Code 0.0 - 0.4 10^3/mcL AO Workflow SS Eosinophils/100 WBC (Bld) 4.0 % Invalid Interpretation Code 0.0 - 7.0 % AO Workflow SS Erythrocyte distribution width (RBC) [Ratio] 13.9 % Invalid Interpretation Code 11.5 - 14.5 % AO Workflow SS Globulin 3.7 G/dL Invalid Interpretation Code AO ADM SS Glucose [Mass/Vol] 135 mg/dL Invalid Interpretation Code 83 - 110 mg/dL AO ADM SS HbA1c (Bld) [Mass fraction] 7.0 % Invalid Interpretation Code 4.3 - 6.4 % AO ADM SS Hematocrit (Bld) [Volume fraction] 32.8 % Invalid Interpretation Code 37.0 - 47.0 % AO Workflow SS Hemoglobin (Bld) [Mass/Vol] 11.4 G/dL Invalid Interpretation Code 12.0 - 16.0 G/dL AO Workflow SS Lymphocyte, Absolute 2.6 103/mcL Invalid Interpretation Code 0.8 - 3.9 10^3/mcL AO Workflow SS Lymphocytes/100 WBC (Bld) 43.1 % Invalid Interpretation Code 10.0 - 50.0 % AO Workflow SS MCH (RBC) [Entitic mass] 32.1 pg Invalid Interpretation Code 27.0 - 31.2 pg AO Workflow SS MCHC 34.7 G/dL Invalid Interpretation Code 33.0 - 37.0 G/dL AO Workflow SS MCV (RBC) [Entitic vol] 92.4 fL Invalid Interpretation Code 80.0 - 94.0 fL AO Workflow SS Monocyte, Absolute 0.3 103/mcL Invalid Interpretation Code 0.2 - 1.0 10^3/mcL AO Workflow SS Monocytes/100 WBC (Bld) 5.7 % Invalid Interpretation Code 1.7 - 13.0 % AO Workflow SS Neutrophil, Absolute 2.8 103/mcL Invalid Interpretation Code 2.9 - 6.2 10^3/mcL AO Workflow SS Neutrophils/100 WBC (Bld) 46.5 % Invalid Interpretation Code 37.0 - 80.0 % AO Workflow SS Platelet mean volume (Bld) [Entitic vol] 6.3 fL Invalid Interpretation Code 7.4 - 10.4 fL AO Workflow SS Platelets (Bld) [#/Vol] 248 103/mcL Invalid Interpretation Code 130 - 400 10^3/mcL AO Workflow SS Potassium [Moles/Vol] 4.5 mmol/L Invalid Interpretation Code 3.5 - 5.1 mmol/L AO ADM SS Protein [Mass/Vol] 6.9 G/dL Invalid Interpretation Code 6.4 - 8.2 G/dL AO ADM SS RBC (Bld) [#/Vol] 3.55 106/mcL Invalid Interpretation Code 4.20 - 5.40 10^6/mcL AO Workflow SS Sodium [Moles/Vol] 141 mmol/L Invalid Interpretation Code 136 - 145 mmol/L AO ADM SS Triglyceride [Mass/Vol] 80 mg/dL Invalid Interpretation Code 0 - 150 mg/dL AO ADM SS Urea nitrogen [Mass/Vol] 16 mg/dL Invalid Interpretation Code 7 - 18 mg/dL AO ADM SS Urea nitrogen/Creatinine [Mass ratio] 14 ratio Invalid Interpretation Code 7 - 27 ratio AO ADM SS WBC (Bld) [#/Vol] 6.1 103/mcL Invalid Interpretation Code 4.6 - 10.8 10^3/mcL AO Workflow SS No Panel Informationon 02-12 Culture Urine >100,000 cfu/ml Escherichia coli [facility] Escherichia coli Escherichia coli [facility] LABORATORYOrdered By: Jacqui Willams on 10-24-2021 Albumin BCP dye [Mass/Vol] 3.2 G/dL Invalid Interpretation Code 3.4 - 4.8 G/dL AO ADM SS Albumin/Globulin [Mass ratio] 0.8 {ratio} Invalid Interpretation Code 1.1 - 2.5 ratio AO ADM SS ALP [Catalytic activity/Vol] 41 U/L Invalid Interpretation Code 40 - 135 U/L AO ADM SS ALT With P-5'-P [Catalytic activity/Vol] 74 U/L Invalid Interpretation Code 14 - 59 U/L AO ADM SS AST With P-5'-P [Catalytic activity/Vol] 96 U/L Invalid Interpretation Code 10 - 40 U/L AO ADM SS Bilirubin [Mass/Vol] 0.4 mg/dL Invalid Interpretation Code 0.2 - 1.0 mg/dL AO ADM SS Calcium [Mass/Vol] 8.9 mg/dL Invalid Interpretation Code 8.4 - 10.2 mg/dL AO ADM SS Chloride [Moles/Vol] 104 mmol/L Invalid Interpretation Code 98 - 107 mmol/L AO ADM SS Cholesterol [Mass/Vol] 112 mg/dL Invalid Interpretation Code 0 - 200 mg/dL AO ADM SS Cholesterol in HDL [Mass/Vol] 35 mg/dL Invalid Interpretation Code 40 - 60 mg/dL AO ADM SS Cholesterol in LDL [Mass/Vol] 53 mg/dL Invalid Interpretation Code 0 - 130 mg/dL AO ADM SS CO2 [Moles/Vol] 28 mmol/L Invalid Interpretation Code 23 - 31 mmol/L AO ADM SS Creatinine [Mass/Vol] 1.18 mg/dL Invalid Interpretation Code 0.55 - 1.02 mg/dL AO ADM SS Electrolyte Balance 8.0 mEq/L Invalid Interpretation Code 4.0 - 15.0 mEq/L AO ADM SS Globulin 4.1 G/dL Invalid Interpretation Code AO ADM SS Glucose [Mass/Vol] 161 mg/dL Invalid Interpretation Code 83 - 110 mg/dL AO ADM SS HbA1c (Bld) [Mass fraction] 7.5 % Invalid Interpretation Code 4.3 - 6.4 % AO ADM SS Potassium [Moles/Vol] 4.8 mmol/L Invalid Interpretation Code 3.5 - 5.1 mmol/L AO ADM SS Protein [Mass/Vol] 7.3 G/dL Invalid Interpretation Code 6.4 - 8.2 G/dL AO ADM SS Sodium [Moles/Vol] 140 mmol/L Invalid Interpretation Code 136 - 145 mmol/L AO ADM SS Triglyceride [Mass/Vol] 120 mg/dL Invalid Interpretation Code 0 - 150 mg/dL AO ADM SS Urea nitrogen [Mass/Vol] 18 mg/dL Invalid Interpretation Code 7 - 18 mg/dL AO ADM SS Urea nitrogen/Creatinine [Mass ratio] 15 ratio Invalid Interpretation Code 7 - 27 ratio AO ADM SS LABORATORYOrdered By: Renate Salinas on 10-24-2021 Basophil, Absolute 0.00 103/mcL Invalid Interpretation Code 0.00 - 0.19 10^3/mcL AO Auto Heme SS Basophils/100 WBC (Bld) 0.8 % Invalid Interpretation Code 0.0 - 2.5 % AO Auto Heme SS Eosinophil, Absolute 0.20 103/mcL Invalid Interpretation Code 0.00 - 0.40 10^3/mcL AO Auto Heme SS Eosinophils/100 WBC (Bld) 2.9 % Invalid Interpretation Code 0.0 - 7.0 % AO Auto Heme SS Erythrocyte distribution width (RBC) [Ratio] 13.4 % Invalid Interpretation Code 11.5 - 14.5 % AO Auto Heme SS Hematocrit (Bld) [Volume fraction] 35.2 % Invalid Interpretation Code 37.0 - 47.0 % AO Auto Heme SS Hemoglobin (Bld) [Mass/Vol] 11.9 G/dL Invalid Interpretation Code 12.0 - 16.0 G/dL AO Auto Heme SS Lymphocyte, Absolute 2.40 103/mcL Invalid Interpretation Code 0.77 - 3.85 10^3/mcL AO Auto Heme SS Lymphocytes/100 WBC (Bld) 39.7 % Invalid Interpretation Code 10.0 - 50.0 % AO Auto Heme SS MCH (RBC) [Entitic mass] 31.4 pg Invalid Interpretation Code 27.0 - 31.2 pg AO Auto Heme SS MCHC (RBC) [Mass/Vol] 33.9 G/dL Invalid Interpretation Code 33.0 - 37.0 G/dL AO Auto Heme SS MCV (RBC) [Entitic vol] 92.4 fL Invalid Interpretation Code 80.0 - 94.0 fL AO Auto Heme SS Monocyte, Absolute 0.40 103/mcL Invalid Interpretation Code 0.15 - 1.00 10^3/mcL AO Auto Heme SS Monocytes/100 WBC (Bld) 6.2 % Invalid Interpretation Code 1.7 - 13.0 % AO Auto Heme SS Neutrophil, Absolute 3.00 103/mcL Invalid Interpretation Code 2.85 - 6.16 10^3/mcL AO Auto Heme SS Neutrophils/100 WBC (Bld) 50.4 % Invalid Interpretation Code 37.0 - 80.0 % AO Auto Heme SS Platelet mean volume (Bld) [Entitic vol] 6.5 fL Invalid Interpretation Code 7.4 - 10.4 fL AO Auto Heme SS Platelets (Bld) [#/Vol] 317 103/mcL Invalid Interpretation Code 130 - 400 10^3/mcL AO Auto Heme SS RBC (Bld) [#/Vol] 3.81 106/mcL Invalid Interpretation Code 4.20 - 5.40 10^6/mcL AO Auto Heme SS WBC (Bld) [#/Vol] 6.00 103/mcL Invalid Interpretation Code 4.60 - 10.80 10^3/mcL AO Auto Heme SS LABORATORYOrdered By: SYSTEM SYSTEM on 10-24-2021 GFR 55 ml/min/1.73sqm Invalid Interpretation Code AO Chemistry S GFR Non- 45 ml/min/1.73sqm Invalid Interpretation Code AO Chemistry S No Panel Informationon 10-23 Culture Urine >100,000 cfu/ml Escherichia coli 10,000 - 50,000 cfu/ml Enterococcus faecalis Sensitivity testing not indicated. [facility] Enterococcus faecalis Enterococcus faecalis [facility] Escherichia coli Escherichia coli [facility] LABORATORYOrdered By: Renate Salinas on 07-06-2021 Appearance (U) Cloudy *ABN* (07/06/21 3:13 PM) Invalid Interpretation Code Clear AO Auto Urine SS Bacteria LM.HPF (Urine sed) [#/Area] 4 /[HPF] Invalid Interpretation Code AO Auto Urine SS Bilirubin Ql (U) Negative (07/06/21 3:13 PM) Invalid Interpretation Code Negative AO Auto Urine SS Color (U) Yellow (07/06/21 3:13 PM) Invalid Interpretation Code AO Auto Urine SS Glucose Test strip (U) [Mass/Vol] Negative Invalid Interpretation Code Negativemg/ dL AO Auto Urine SS Hemoglobin Auto test strip (U) [Mass/Vol] Moderate *ABN* (07/06/21 3:13 PM) Invalid Interpretation Code Negative AO Auto Urine SS Ketones Ql (U) Negative Invalid Interpretation Code Negativemg/ dL AO Auto Urine SS UA Leuk Est Moderate *ABN* (07/06/21 3:13 PM) Invalid Interpretation Code Negative AO Auto Urine SS UA Nitrite Negative (07/06/21 3:13 PM) Invalid Interpretation Code Negative AO Auto Urine SS UA pH 5.5 (07/06/21 3:13 PM) Invalid Interpretation Code 5.0 - 8.0 AO Auto Urine SS UA Protein 30 mg/dL Invalid Interpretation Code Negativemg/ dL AO Auto Urine SS UA RBC 0-5 /HPF Invalid Interpretation Code None Seen/HPF AO Auto Urine SS UA Spec Grav 1.025 (07/06/21 3:13 PM) Invalid Interpretation Code 1.015-1.025 AO Auto Urine SS UA Specimen Type Clean Catch (07/06/21 3:13 PM) Invalid Interpretation Code AO Auto Urine SS UA Squam Epithelial 0-5 /HPF Invalid Interpretation Code None Seen/HPF AO Auto Urine SS UA Urobilinogen 0.2 E.U./dL Invalid Interpretation Code 0.2-1.0E.U. /dL AO Auto Urine SS WBC LM.HPF (Urine sed) [#/Area] LOADED /HPF Invalid Interpretation Code None Seen/HPF AO Auto Urine SS CT CHEST W IVCONon 0 CT CHEST W IVCON Final Report DATE OF EXAM: Mar 13 2020 1:20PM [facility] 0539 - CT CHEST W IVCON / PROCEDURE REASON: multiple diagnoses Physician Interpretation EXAMINATION: CHEST CT WITH CONTRAST CLINICAL HISTORY: Lung nodules. Colorectal cancer. Technique: Spiral CT acquisition of the chest from the thoracic inlet to the upper abdomen following IV contrast. MQ: [id number] Contrast: 50 mL Omnipaque [address] Dose-Length Product: [address] Dose Reduction Employed: Automated exposure control (AEC) Comparison: CT chest, abdomen and pelvis 08/31/2019. RESULT: Lines, tubes, and devices: None. Lung parenchyma and airways: On the right, there is a 10 x 5 mm middle lobe nodule, image 64 of series 3, with eccentric calcification. Stable. There is a 4 x 2 mm lower lobe nodule, image 58. Stable. There is no parenchymal consolidation. The central airways are patent. Pleural space: No pleural effusion. No pleural thickening. Lower neck, lymph nodes, and mediastinum: The imaged thyroid gland is normal. No pathologically enlarged lymphadenopathy in the supraclavicular, axillary, mediastinal, or hilar regions. Heart, pericardium, and thoracic vessels: The thoracic aorta and main pulmonary artery are normal in caliber. The cardiac chambers are normal in size. Coronary artery atherosclerotic calcifications are noted, although the study is not optimized for coronary assessment. No pericardial effusion or thickening. Bones and soft tissues: No destructive bone lesion. Chest wall is unremarkable. Upper abdomen: Similar prominent, non-pathologically enlarged periceliac, peripancreatic and periportal lymph nodes. Similar thickening of the right adrenal limbs measuring 0.8 cm in maximal thickness. Similar left adrenal nodule measuring 1.2 cm in thickness. Similar hepatic and splenic granulomata. Appeals Analyst (topogram) images: Noncontributory. IMPRESSION: Right middle and lower lobe pulmonary nodules as described above appearing stable to comparison CT chest 08/31/2019. Stable left adrenal nodule. Cold Roll Catcher: RUBY Transcribe Date/Time: Mar 13 2020 3:56P Dictated by : ZOYA KWAN MD This examination was interpreted and the report reviewed and electronically signed by: ZOYA KWAN MD on Mar 13 2020 4:12PM EST Normal [facility] Comprehensive Metabolic Pane debi 03-06-2020 Albumin [Mass/Vol] 3.9 g/dL Normal 3.9-4.9 [facility] Comment on above: Performed By: #### C MP #### [facility] [address] [place], [place] [address] ALP [Catalytic activity/Vol] 36 U/L Normal 34-123 [facility] Comment on above: Performed By: #### C MP #### [facility] [address] [place], [place] [address] ALT [Catalytic activity/Vol] 47 U/L High 7-38 [facility] Comment on above: Performed By: #### C MP #### [address] [address] Anion gap [Moles/Vol] 11 mmol/L Normal 9-18 [facility] Comment on above: Performed By: #### C MP #### [facility] [address] [place], [place] [address] AST [Catalytic activity/Vol] 66 U/L High 13-35 [facility] Comment on above: Performed By: #### C MP #### [facility] [address] [place], [place] [address] Bilirubin [Mass/Vol] mg/dL Normal 0.2-1.3 [facility] Comment on above: Performed By: #### C MP #### [facility] [address] [place], [place] [address] Calcium [Mass/Vol] 9.7 mg/dL Normal 8.5-10.2 [facility] Comment on above: Performed By: #### C MP #### [facility] [address] [place], [place] [address] Chloride [Moles/Vol] 104 mmol/L Normal 97-105 [facility] Comment on above: Performed By: #### C MP #### [facility] [address] [place], [place] [address] CO2 Blood 26 mmol/L Normal 22-30 [facility] Comment on above: Performed By: #### C MP #### [facility] [address] [place] [address] Creatinine [Mass/Vol] 1.04 mg/dL High 0.58-0.96 [facility] Comment on above: Performed By: #### C MP #### [facility] [address] [place], [place] [address] Glucose [Mass/Vol] 87 mg/dL Normal 74-99 [facility] Comment on above: Result Comment: The [place] [employer] (ADA) provides guidance for cutoff values for fasting glucose and random glucose. The ADA defines fasting as no caloric intake for at least 8 hours.Fasting plasma glucose results between 100 to 125 mg/dL indicate increased risk for diabetes (prediabetes). Fasting plasma glucose results greater than or equal to 126 mg/dL meet the criteria for diagnosis of diabetes. In the absence of unequivocal hyperglycemia, results should be confirmed by repeat testing. In a patient with classic symptoms of hyperglycemia or hyperglycemic crisis, random plasma glucose results greater than or equal to 200 mg/dL meet the criteria for diagnosis of diabetes. Reference: Standards of Medical Care in Diabetes 2016; [place] [employer]. Diabetes Care. 2016;39(Suppl 1). Performed By: #### C MP #### [facility] [address] [place], [place] [address] Potassium [Moles/Vol] 4.2 mmol/L Normal 3.7-5.1 [facility] Comment on above: Performed By: #### C MP #### [facility] [address] [place] [address] Protein [Mass/Vol] 6.7 g/dL Normal 6.3-8.0 [facility] Comment on above: Performed By: #### C MP #### [facility] [address] [place] [id number] Sodium [Moles/Vol] 141 mmol/L Normal 136-144 [facility] Comment on above: Performed By: #### C MP #### [place] [id number] Urea nitrogen [Mass/Vol] 16 mg/dL Normal 7-21 [facility] Comment on above: Performed By: #### C MP #### [place] [address] MDRD GFRon 03-06-2020 GFR/1.73 sq M predicted among non-blacks MDRD (S/P/Bld) [Vol rate/Area] 52.19 mL/min/{1.73_m2} Normal >60mL/min/1 .73m2 [facility] Comment on above: Result Comment: If t he patient is , multiply the result by 1.210. Performed By: #### G FR #### [place] [address] Basic Panelon 09-22-2019 Creatinine [Mass/Vol] 0.87 mg/dL Normal 0.51-0.95 [facility] Comment on above: Result Comment: Use of this assay is not recommended for patients undergoing treatment with phenindione, due to the potential for falsely depressed results. Performed By: #### P 8 #### [place] [id number] Anion gap [Moles/Vol] 6 mmol/L Low 8-16 [facility] Comment on above: Performed By: #### P 8 #### [facility] [address] [place] [id number] Calcium [Mass/Vol] 8.1 mg/dL Low 8.5-10.1 [facility] Comment on above: Performed By: #### P 8 #### [place] [id number] CO2 [Moles/Vol] 28 mmol/L Normal 21-32 [facility] Comment on above: Performed By: #### P 8 #### [facility] [address] [place], [place] [address] Glucose [Mass/Vol] 148 mg/dL High 70-99 [facility] Comment on above: Performed By: #### P 8 #### [facility] [address] [place], [place] [address] Urea nitrogen [Mass/Vol] 10 mg/dL Normal 7-18 [facility] Comment on above: Performed By: #### P 8 #### [facility] [address] [place], [place] [address] Chloride [Moles/Vol] 111 mmol/L High 98-107 [facility] Comment on above: Performed By: #### P 8 #### [facility] [address] [place], [place] [address] Potassium [Moles/Vol] 4.0 mmol/L Normal 3.5-5.1 [facility] Comment on above: Performed By: #### P 8 #### [facility] [address] [place], [place] [address] Sodium [Moles/Vol] 141 mmol/L Normal 136-145 [facility] Comment on above: Performed By: #### P 8 #### [facility] [address] [place], [place] [address] Glucose Meteron 09-22-2019 Glucose [Mass/Vol] 178 mg/dL High 70-99 [facility] Comment on above: Result Comment: EDMUND THACKER Performed By: #### G LMET #### [facility] [address] [place], [place] [address] Hemogramon 09-22-2019 Erythrocyte distribution width (RBC) [Ratio] 13.1 % Normal 11.7-14.4 [facility] Comment on above: Performed By: #### C DARRYL #### [facility] [address] [place], [place] [address] Hematocrit (Bld) [Volume fraction] 29.3 % Low 34.1-44.9 [facility] Comment on above: Performed By: #### C DARRYL #### [facility] [address] [place] [address] Hemoglobin (Bld) [Mass/Vol] 9.7 g/dL Low 11.2-15.7 [facility] Comment on above: Performed By: #### C DARRYL #### [facility] [address] [place] [address] MCH (RBC) [Entitic mass] 32.7 pg High 25.6-32.2 [facility] Comment on above: Performed By: #### C DARRYL #### [facility] [address] [place] [address] MCHC (RBC) [Mass/Vol] 33.1 % Normal 31.6-34.8 [facility] Comment on above: Performed By: #### C DARRYL #### [place] [address] MCV (RBC) [Entitic vol] 98.7 fL High 79.4-94.8 [facility] Comment on above: Performed By: #### C DARRYL #### [facility] [address] [place] [address] Platelet mean volume (Bld) [Entitic vol] 8.3 fL Low 9.4-12.3 [facility] Comment on above: Performed By: #### C DARRYL #### [place] [address] Platelets (Bld) [#/Vol] 166 thou/cmm Low 182-369 [facility] Comment on above: Performed By: #### C DARRYL #### [facility] [address] [place] [address] RBC (Bld) [#/Vol] 2.97 mil/cmm Low 3.93-5.22 [facility] Comment on above: Performed By: #### C DARRYL #### [place] [address] RDW SD 47.4 fl High 36.4-46.3 [facility] Comment on above: Performed By: #### C DARRYL #### [facility] [address] [place] [address] WBC (Bld) [#/Vol] 5.61 thou/cmm Normal 3.98-10.04 [facility] Comment on above: Performed By: #### C DARRYL #### [facility] [address] [place] [address] MDRD GFRon 09-22-2019 GFR/1.73 sq M predicted among non-blacks MDRD (S/P/Bld) [Vol rate/Area] mL/min/{1.73_m2} Normal >60mL/min/1 .73m2 [facility] Comment on above: Result Comment: If t he patient is , multiply the result by 1.210. Performed By: #### G FR #### [place] [address] Basic Panelon 09-21-2019 Creatinine [Mass/Vol] 0.98 mg/dL High 0.51-0.95 [facility] Comment on above: Result Comment: Use of this assay is not recommended for patients undergoing treatment with phenindione, due to the potential for falsely depressed results. Performed By: #### C DARRYL #### [place] [address] Urea nitrogen [Mass/Vol] 12 mg/dL Normal 7-18 [facility] Comment on above: Performed By: #### C DARRYL #### [place] [address] Anion gap [Moles/Vol] 9 mmol/L Normal 8-16 [facility] Comment on above: Performed By: #### C DARRYL #### [place] [address] Calcium [Mass/Vol] 7.7 mg/dL Low 8.5-10.1 [facility] Comment on above: Performed By: #### C DARRYL #### [place] [address] CO2 [Moles/Vol] 24 mmol/L Normal 21-32 [facility] Comment on above: Performed By: #### C DARRYL #### [facility] [address] [place] [address] Glucose [Mass/Vol] 172 mg/dL High 70-99 [facility] Comment on above: Performed By: #### C DARRYL #### [facility] [address] [place] [address] Chloride [Moles/Vol] 110 mmol/L High 98-107 [facility] Comment on above: Performed By: #### C DARRYL #### [facility] [address] [place] [address] Potassium [Moles/Vol] 4.2 mmol/L Normal 3.5-5.1 [facility] Comment on above: Performed By: #### C DARRYL #### [facility] [address] [place] [address] Sodium [Moles/Vol] 139 mmol/L Normal 136-145 [facility] Comment on above: Performed By: #### C DARRYL #### [place] [address] Hemogramon 09-21-2019 Erythrocyte distribution width (RBC) [Ratio] 12.9 % Normal 11.7-14.4 [facility] Comment on above: Performed By: #### C BC1 #### [place] [address] Hematocrit (Bld) [Volume fraction] 28.9 % Low 34.1-44.9 [facility] Comment on above: Performed By: #### C BC1 #### [place] [address] Hemoglobin (Bld) [Mass/Vol] 9.5 g/dL Low 11.2-15.7 [facility] Comment on above: Performed By: #### C BC1 #### [facility] [address] [place] [address] MCH (RBC) [Entitic mass] 31.8 pg Normal 25.6-32.2 [facility] Comment on above: Performed By: #### C BC1 #### [place] [address] MCHC (RBC) [Mass/Vol] 32.9 % Normal 31.6-34.8 [facility] Comment on above: Performed By: #### C BC1 #### [facility] [address] [place] [address] MCV (RBC) [Entitic vol] 96.7 fL High 79.4-94.8 [facility] Comment on above: Performed By: #### C BC1 #### [facility] [address] [place] [address] Platelet mean volume (Bld) [Entitic vol] 8.7 fL Low 9.4-12.3 [facility] Comment on above: Performed By: #### C BC1 #### [place] [address] Platelets (Bld) [#/Vol] 192 thou/cmm Normal 182-369 [facility] Comment on above: Performed By: #### C BC1 #### [place] [address] RBC (Bld) [#/Vol] 2.99 mil/cmm Low 3.93-5.22 [facility] Comment on above: Performed By: #### C BC1 #### [place] [address] RDW SD 45.5 fl Normal 36.4-46.3 [facility] Comment on above: Performed By: #### C BC1 #### [place] [address] WBC (Bld) [#/Vol] 6.22 thou/cmm Normal 3.98-10.04 [facility] Comment on above: Performed By: #### C BC1 #### [place] [address] Type and Screenon 09-21-2019 ABO group Nom (Bld) O Normal [facility] Comment on above: Performed By: #### T &S #### [place] [address] Comment PAT specimen Normal [facility] Comment on above: Performed By: #### T &S #### [facility] [address] [place], [place] [address] RH Type Positive Normal [facility] Comment on above: Performed By: #### T &S #### [facility] [address] [place], [place] [address] Surgical Tissue Examon 09-20 Surgical Tissue Exam Test performed at [place] [address] NAME: ORION SORENSEN REQUESTING: ZAHEER BIANCHI M.D. 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 PROXIMAL, DISTAL AND MESENTERIC RESECTION MARGINS ARE FREE OF TUMOR INVOLVEMENT. MESENTERIC LYMPH NODES (35) - NEGATIVE FOR MALIGNANCY. COMMENT: Cig[employer] Holer slides from this case were also reviewed by Dr. Easton Sanchez. Colon and Rectum Cancer Case Summary Procedure: Low anterior resection. Tumor site: Rectosigmoid. Tumor size: 2.8 x 2 x 0.5 cm Macroscopic tumor perforation: Not identified. Histologic type: Adenocarcinoma. Histologic grade: Moderately to poorly differentiated. Microscopic tumor extension: Tumor invades submucosa. Margins: Proximal: Negative. Distal: Negative. Circumferential/mesent maurice: Negative. Distance to closest margin: 2.4 cm. Specify margin: Distal. Treatment effect: Not identified. Lymphovascular invasion: Not identified. Perineural invasion: Not identified. Tumor deposits: Not identified. Lymph nodes: Number examined: 35 Number involved: None. Pathologic stage: pT1 pN0 OPERATIVE PROCEDURE: Laparoscopic low anterior resection, possible open, possible stoma CLINICAL INFORMATION: Adenocarcinoma of rectosigmoid junction GROSS DESCRIPTION: Low anterior resection Received in formalin labeled low anterior resection is an oriented segment of bowel measuring 38 cm in length. The distal margin is inked blue and the proximal margin is inked orange. The serosal surface is pink, smooth and glistening. The mesorectal surface is present and smooth and intact. The mesorectal surface is inked black. The wall of the specimen measures 0.4 cm in thickness. The mucosal surface demonstrates a clark-pink fungating mass measuring 2.8 x 2.0 x 0.5 cm. This mass is located 2.4 cm from the distal margin, 26 cm from then proximal margin, 15.3 cm from the mesenteric margin and 1.5 cm from the black inked mesorectal surface. Upon sectioning, it does not grossly appear to extend into or through the wall. The remainder of the mucosal surface is clark-pink and displays normal-appearing mucosal folds. Other polyps, masses and lesions are not present. The mass is totally submitted. Also received in the same container are two mucosal covered rings aggregating to 2.4 x 1.7 x 1.8 cm. Tissue is submitted as follows: 1-2 - shave of distal margin; 3-4 - shave of proximal margin; 5-9 - mass, totally submitted; 10 - closest black-inked mesorectal surface; 11 - mesenteric margin; 12-13 - computer help desk representative sections of uninvolved bowel; 14-15 - one mucosal ring, sectioned and totally submitted; 16-17 - second mucosal ring, sectioned and totally submitted; 18 - five nodules resembling lymph nodes; 19 - five nodules resembling lymph nodes; 20 - five nodules resembling lymph nodes; 21 - five nodules resembling lymph nodes; 22 - five nodules resembling lymph nodes; 23 - five nodules resembling lymph nodes; 24 - four nodules resembling lymph nodes; 25 - four nodules resembling lymph nodes; 26 - one nodule sectioned and totally submitted; 27 - one nodule, sectioned and totally submitted; 28 - one nodule, sectioned and totally submitted; 29 - one nodule, sectioned and totally submitted; 30 - one nodule, sectioned and totally submitted; 31 - one nodule, sectioned and totally submitted. KVB:kandi ROJO M.D. (Electronic signature on file) Signed out: 09/26/2019 17:24 PRINTED: 09/26/2019 Page 1 of 1 Normal [facility] Comment on above: Performed By: #### C DARRYL #### [place] [address] Pathology Miscellaneouson Pathology Miscellaneous Test performed at [place] [address] NAME: OROIN SORENSEN REQUESTING: ZAHEER BIANCHI M.D. DIAGNOSIS: GI MMR Status: See complete report from [facility]. SPECIMEN: TISSUE FOR SEND-OUT, [facility]; MMR BY IHC EXTERNAL CONSULT, PATHOLOGIST (Electronic signature on file) Signed out: 09/14/2019 08:41 PRINTED: 09/14/2019 Page 1 of 1 Normal [facility] Comment on above: Performed By: #### C DARRYL #### [address] [address] Surgical Tissue Examon 09-07 Surgical Tissue Exam Test performed at [place] [address] NAME: ORION SORENSEN REQUESTING: ZAHEER BIANCHI M.D. COPY TO: TUMOR REGISTRY; DEPARTMENT MGR FINAL DIAGNOSIS: RECTOSIGMOID COLON, BIOPSIES - INVASIVE ADENOCARCINOMA. SEE COMMENT. COMMENT: Biopsies demonstrate invasive moderately to poorly differentiated adenocarcinoma associated with a dysplastic adenomatous lesion. A paraffin block has been submitted for mismatch repair evaluation and results will appear in a separate report. The case was also reviewed by Dr. Carter Rivero. OPERATIVE PROCEDURE: Flexible sigmoidoscopy with biopsies CLINICAL INFORMATION: Rectal mass GROSS DESCRIPTION: Rectosigmoid mass biopsies Received in formalin labeled rectosigmoid mass biopsies are multiple irregular clark soft tissue fragments aggregating to 1 x 0.7 x 0.2 cm. The specimen is submitted entirely in one cassette. OLS:kandi RYAN M.D., PATHOLOGIST (Electronic signature on file) Signed out: 09/11/2019 16:59 PRINTED: 09/11/2019 Page 1 of 1 Normal [facility] Comment on above: Performed By: #### C DARRYL #### [place] [id number] CT ABD/PEL W IVCONon 020 CT ABD/PEL W IVCON * * *Final Report* * * DATE OF EXAM: Aug 31 2019 2:53PM [facility] 0530 - CT ABD/PEL W IVCON / PROCEDURE REASON: Rectal mass * * * * Physician Interpretation * * * * EXAMINATION: CT CHEST WITH CONTRAST CT ABDOMEN AND PELVIS WITH CONTRAST HISTORY: Rectal mass TECHNIQUE: Spiral CT acquisition following IV contrast. Contrast: IV: 150 mL of Omnipaque 300 Oral: 900 mL of READI-CAT 2 CT Radiation dose: Integrated Dose-length product (DLP) for this visit = 965 mGy*cm. CT Dose Reduction Employed: Automated exposure control (AEC) COMPARISON: None. RESULT: Chest: Limitations: None. Lines, tubes, and devices: None. Lung parenchyma and pleura: Central airways are patent with mild bronchial wall thickening. There is an 8 mm nodule in the right middle lobe, abutting the major fissure, which appears to contain a punctate calcification (3:59). Additional 6 mm right lower lobe nodule (3:54). No pleural effusion. Thoracic inlet, heart, and mediastinum: No lymphadenopathy in the axillary, mediastinal, or hilar regions. The thoracic aorta and main pulmonary artery are normal in caliber. The cardiac chambers are normal in size. No coronary artery atherosclerotic calcifications are noted, although the study is not optimized for coronary assessment. No pericardial effusion or thickening. Bones and soft tissues: No destructive bone lesion. Bilateral mastectomies. Abdomen and pelvis: Liver: No mass. Biliary: No bile duct dilation. Spleen: Subcentimeter low-attenuation lesion in the posterior aspect of the spleen is too small to characterize but likely benign. No splenomegaly. Pancreas: No mass or duct dilation. Adrenals: Bilateral adrenal nodularity without mass. Kidneys: Subcentimeter lesions that are too small to characterize but likely benign. No hydronephrosis. Vasculature: The celiac axis and SMA are patent. The portal vein and branches, splenic vein, SMV, and hepatic veins are patent. There are atherosclerotic calcifications without aneurysmal dilation. GI tract: No dilation or wall thickening. Appendix within normal limits. Lymph nodes: No abdominal or pelvic lymphadenopathy. Mesentery/Peritoneum: No ascites or mass. Retroperitoneum: No mass. Pelvis: No mass, ascites or fluid collection. Bones/Soft Tissues: Degenerative changes. No suspicious osseous lesion. IMPRESSION: CHEST: RIGHT LUNG NODULES, DESCRIBED. THESE ARE INDETERMINATE, HOWEVER, THE LARGER CONTAINS A PUNCTATE CALCIFICATION SUGGESTING BENIGN ETIOLOGY. ATTENTION ON FOLLOW-UP SUGGESTED. NO THORACIC LYMPHADENOPATHY. ABDOMEN AND PELVIS: NO METASTATIC DISEASE IN THE ABDOMEN OR PELVIS. Cold Roll Catcher: RUBY Transcribe Date/Time: Sep 02 2019 12:00A Dictated by : AFIA CREWS MD This examination was interpreted and the report reviewed and electronically signed by: AFIA CRWES MD on Sep 02 2019 12:14AM EST Normal [facility] CT CHEST W IVCONon 0 CT CHEST W IVCON * * *Final Report* * * DATE OF EXAM: Aug 31 2019 2:53PM [facility] 0539 - CT CHEST W IVCON / PROCEDURE REASON: Rectal mass * * * * Physician Interpretation * * * * EXAMINATION: CT CHEST WITH CONTRAST CT ABDOMEN AND PELVIS WITH CONTRAST HISTORY: Rectal mass TECHNIQUE: Spiral CT acquisition following IV contrast. Contrast: IV: 150 mL of Omnipaque 300 Oral: 900 mL of READI-CAT 2 CT Radiation dose: Integrated Dose-length product (DLP) for this visit = 965 mGy*cm. CT Dose Reduction Employed: Automated exposure control (AEC) COMPARISON: None. RESULT: Chest: Limitations: None. Lines, tubes, and devices: None. Lung parenchyma and pleura: Central airways are patent with mild bronchial wall thickening. There is an 8 mm nodule in the right middle lobe, abutting the major fissure, which appears to contain a punctate calcification (3:59). Additional 6 mm right lower lobe nodule (3:54). No pleural effusion. Thoracic inlet, heart, and mediastinum: No lymphadenopathy in the axillary, mediastinal, or hilar regions. The thoracic aorta and main pulmonary artery are normal in caliber. The cardiac chambers are normal in size. No coronary artery atherosclerotic calcifications are noted, although the study is not optimized for coronary assessment. No pericardial effusion or thickening. Bones and soft tissues: No destructive bone lesion. Bilateral mastectomies. Abdomen and pelvis: Liver: No mass. Biliary: No bile duct dilation. Spleen: Subcentimeter low-attenuation lesion in the posterior aspect of the spleen is too small to characterize but likely benign. No splenomegaly. Pancreas: No mass or duct dilation. Adrenals: Bilateral adrenal nodularity without mass. Kidneys: Subcentimeter lesions that are too small to characterize but likely benign. No hydronephrosis. Vasculature: The celiac axis and SMA are patent. The portal vein and branches, splenic vein, SMV, and hepatic veins are patent. There are atherosclerotic calcifications without aneurysmal dilation. GI tract: No dilation or wall thickening. Appendix within normal limits. Lymph nodes: No abdominal or pelvic lymphadenopathy. Mesentery/Peritoneum: No ascites or mass. Retroperitoneum: No mass. Pelvis: No mass, ascites or fluid collection. Bones/Soft Tissues: Degenerative changes. No suspicious osseous lesion. IMPRESSION: CHEST: RIGHT LUNG NODULES, DESCRIBED. THESE ARE INDETERMINATE, HOWEVER, THE LARGER CONTAINS A PUNCTATE CALCIFICATION SUGGESTING BENIGN ETIOLOGY. ATTENTION ON FOLLOW-UP SUGGESTED. NO THORACIC LYMPHADENOPATHY. ABDOMEN AND PELVIS: NO METASTATIC DISEASE IN THE ABDOMEN OR PELVIS. Cold Roll Catcher: RUBY Transcribe Date/Time: Sep 02 2019 12:00A Dictated by : AFIA CREWS MD This examination was interpreted and the report reviewed and electronically signed by: AFIA CREWS MD on Sep 02 2019 12:14AM EST Normal [facility] Creatinine Bloodon 0 Creatinine [Mass/Vol] 1.05 mg/dL High 0.51-0.95 [facility] Comment on above: Result Comment: Use of this assay is not recommended for patients undergoing treatment with phenindione, due to the potential for falsely depressed results. Performed By: #### C DARRYL #### [address] [address] MDRD GFRon 08-26-2019 GFR/1.73 sq M predicted among non-blacks MDRD (S/P/Bld) [Vol rate/Area] 51.69 mL/min/{1.73_m2} Normal >60mL/min/1 .73m2 [facility] Comment on above: Result Comment: If t he patient is , multiply the result by 1.210. Performed By: #### G FR #### [facility] [address] [place], [place] [address] Vital Signs Date Time Vital Sign Value Performing Clinician Facility 04-06-2025 11:11040 Body height 154.9 cm Chau Horowitz MD Work Phone: [facility] 04-06-2025 11:11040 Body mass index (BMI) [Ratio] 36.47 kg/m2 Chau Horowitz MD Work Phone: [facility] 04-06-2025 11:11040 Body weight 87.54 kg Chau Horowitz MD Work Phone: [facility] 04-06-2025 11:11040 Respiratory rate 16 /min Chau Horowitz MD Work Phone: [facility] 03-29-2025 09:52-0400 Body height 154.94 cm Terrie Goldstein [facility] 03-29-2025 09:52-0400 Body mass index (BMI) [Ratio] 36.4 kg/m2 Terrie Goldstein [facility] 03-29-2025 09:52-0400 Body weight 87.54 kg Terrie Goldstein [facility] 03-29-2025 09:52-0400 Diastolic blood pressure 71 mm[Hg] Terrie Goldstein [facility] 03-29-2025 09:52-0400 Heart rate 78 /min Terrie Goldstein [facility] 03-29-2025 09:52-0400 SaO2% (BldA) [Mass fraction] 96 % Terrie Angelita [facility] 03-29-2025 09:52-0400 Systolic blood pressure 146 mm[Hg] Terrie Goldstein [facility] 03-01-2025 14:54-0400 Body height 154.9 cm Pacc 1 Work Phone: [facility] 03-01-2025 14:54-0400 Body mass index (BMI) [Ratio] 36.62 kg/m2 Pacc 1 Work Phone: [facility] 03-01-2025 14:54-0400 Body temperature 97.3 [degF] Pacc 1 Work Phone: [facility] 03-01-2025 14:54-0400 Body weight 87.91 kg Pacc 1 Work Phone: [facility] 03-01-2025 14:54-0400 Diastolic blood pressure 68 mm[Hg] Pacc 1 Work Phone: [facility] 03-01-2025 14:54-0400 Heart rate 85 /min Pacc 1 Work Phone: [facility] 03-01-2025 14:54-0400 Respiratory rate 17 /min Pacc 1 Work Phone: [facility] 03-01-2025 14:54-0400 SaO2% (BldA) [Mass fraction] 95 % Pacc 1 Work Phone: [facility] 03-01-2025 14:54-0400 Systolic blood pressure 128 mm[Hg] Pacc 1 Work Phone: [facility] 02-23-2025 13:24-0400 Body height 154.9 cm Chau Horowitz MD Work Phone: [facility] 02-23-2025 13:24-0400 Body mass index (BMI) [Ratio] 37.03 kg/m2 Chau Horowitz MD Work Phone: [facility] 02-23-2025 13:24-0400 Body weight 88.91 kg Chau Horowitz MD Work Phone: [facility] 02-23-2025 13:24-0400 Respiratory rate 18 /min Chau Horowitz MD Work Phone: [facility] 01-17-2025 10:55-0400 Body mass index (BMI) [Ratio] 35.99 kg/m2 Bruno Lares MD Work Phone: [facility] 01-17-2025 10:55-0400 Body weight 86.4 kg Bruno Lares MD Work Phone: [facility] 01-17-2025 10:55-0400 Diastolic blood pressure 54 mm[Hg] Bruno Lares MD Work Phone: [facility] 01-17-2025 10:55-0400 Heart rate 85 /min Bruno Lares MD Work Phone: [facility] 01-17-2025 10:55-0400 Respiratory rate 16 /min Bruno Lares MD Work Phone: [facility] 01-17-2025 10:55-0400 SaO2% (BldA) [Mass fraction] 94 % Bruno Lares MD Work Phone: [facility] 01-17-2025 10:55-0400 Systolic blood pressure 115 mm[Hg] Bruno Lares MD Work Phone: [facility] 12-28-2024 10:02-0400 Body height 154.[address] Bruce Mcclain DO Work Phone: 0(374)635-091817 [place] [address] 12-28-2024 10:02-0400 Body mass index (BMI) [Ratio] 36.3 kg/m2 Dr. Bruce Mcclain DO Work Phone: 6(985)112-461617 [place] [address] 12-28-2024 10:02-0400 Body weight 87.[address] Bruce Mcclain DO Work Phone: 6(376)668-280911 [place] [address] 12-28-2024 10:02-0400 Diastolic blood pressure 75 mm[Hg] Dr. Bruce Mcclain DO Work Phone: 0(503)581-068011 [place] [address] 12-28-2024 10:02-0400 Heart rate 73 /min Dr. Bruce Mcclain DO Work Phone: 6(640)673-917817 [place] [address] 12-28-2024 10:02-0400 Respiratory rate 18 /min Dr. Bruce Mcclain DO Work Phone: 2(461)054-887811 [place] [address] 12-28-2024 10:02-0400 SaO2% (BldA) [Mass fraction] 92 % Dr. Bruce Mcclain DO Work Phone: 6(856)228-400517 [place] [address] 12-28-2024 10:02-0400 Systolic blood pressure 121 mm[Hg] Dr. Bruce Mcclain DO Work Phone: 5(786)367-481417 [place] [address] 11-22-2024 11:24-0400 Body temperature 97.7 [degF] Dr. Bruce Mcclain DO Work Phone: 6(924)464-378817 [place] [address] 11-22-2024 11:24-0400 Diastolic blood pressure 64 mm[Hg] Dr. Bruce Mcclain DO Work Phone: 9(312)683-776817 [place] [address] 11-22-2024 11:24-0400 Heart rate 69 /min Dr. Bruce Mcclain DO Work Phone: 5(083)254-293111 [place] [address] 11-22-2024 11:24-0400 Respiratory rate 16 /min Dr. Bruce Mcclain DO Work Phone: 7(504)742-366911 [place] [address] 11-22-2024 11:24-0400 SaO2% (BldA) [Mass fraction] 98 % Dr. Bruce Mcclain DO Work Phone: 1(898)581-248211 [place] [address] 11-22-2024 11:24-0400 Systolic blood pressure 135 mm[Hg] Dr. Bruce Mcclain DO Work Phone: 3(150)089-373211 [place] [address] 11-22-2024 06:00-0400 Body mass index (BMI) [Ratio] 35 kg/m2 Dr. Bruce Mcclain DO Work Phone: 1(051)522-301011 [place] [address] 11-22-2024 06:00-0400 Body weight 84.[address] Bruce Mcclain DO Work Phone: 0(666)947-098611 [place] [address] 11-22-2024 02:16-0400 Inhaled oxygen flow rate 2 L/min Dr. Bruce Mcclain DO Work Phone: 5(162)905-169511 [place] [address] 11-16-2024 09:53-0400 Body mass index (BMI) [Ratio] 35.5 kg/m2 Dr. Bruce Mcclain DO Work Phone: 2(269)600-364711 [place] [address] 11-16-2024 09:53-0400 Body weight 85.[address] Bruce Mcclain DO Work Phone: 0(697)274-523311 [place] [address] 11-16-2024 09:53-0400 Diastolic blood pressure 80 mm[Hg] Dr. Bruce Mcclain DO Work Phone: 3(005)357-008611 [place] [address] 11-16-2024 09:53-0400 Heart rate 78 /min Dr. Bruce Mcclain DO Work Phone: 9(941)389-850911 [place] [address] 11-16-2024 09:53-0400 Respiratory rate 18 /min Dr. Bruce Mcclain DO Work Phone: 3(525)335-912711 [place] [address] 11-16-2024 09:53-0400 SaO2% (BldA) [Mass fraction] 99 % Dr. Bruce Mcclain DO Work Phone: 5(836)444-815217 [place] [address] 11-16-2024 09:53-0400 Systolic blood pressure 143 mm[Hg] Dr. Bruce Mcclain DO Work Phone: 7(906)137-501611 [place] [address] 11-02-2024 12:58-0400 Body temperature 98 [degF] Dr. Bruce Mcclain DO Work Phone: 6(300)513-465717 [place] [address] 11-02-2024 12:58-0400 Diastolic blood pressure 80 mm[Hg] Dr. Bruce Mcclain DO Work Phone: 3(044)202-866417 [place] [address] 11-02-2024 12:58-0400 Heart rate 90 /min Dr. Bruce Mcclain DO Work Phone: 8(033)534-297911 [place] [address] 11-02-2024 12:58-0400 Respiratory rate 17 /min Dr. Bruce Mcclain DO Work Phone: 8(586)278-536911 [place] [address] 11-02-2024 12:58-0400 SaO2% (BldA) [Mass fraction] 97 % Dr. Bruce Mcclain DO Work Phone: 1(162)009-727717 [place] [address] 11-02-2024 12:58-0400 Systolic blood pressure 180 mm[Hg] Dr. Bruce Mcclain DO Work Phone: 5(766)300-026217 [place] [address] 11-01-2024 10:18-0400 Body height 154.[address] Bruce Mcclain DO Work Phone: 0(728)222-831517 [place] [address] 11-01-2024 10:18-0400 Body mass index (BMI) [Ratio] 34.2 kg/m2 Dr. Bruce Mcclain DO Work Phone: 0(543)064-002617 [place] [address] 11-01-2024 10:18-0400 Body weight 82.[address] Bruce Mcclain DO Work Phone: 7(864)670-575617 [place] [address] 10-30-2024 21:39-0400 Body temperature 96.3 [degF] Dr. Bruce Mcclain DO Work Phone: 5(846)388-046417 [place] [address] 10-30-2024 21:39-0400 Diastolic blood pressure 82 mm[Hg] Dr. Bruce Mcclain DO Work Phone: [facility] 10-30-2024 21:39-0400 Heart rate 84 /min Dr. Bruce Mccalin DO Work Phone: [facility] 10-30-2024 21:39-0400 Respiratory rate 15 /min Dr. Bruce Mcclain DO Work Phone: [facility] 10-30-2024 21:39-0400 SaO2% (BldA) [Mass fraction] 97 % Dr. Bruce Mcclain DO Work Phone: [facility] 10-30-2024 21:39-0400 Systolic blood pressure 167 mm[Hg] Dr. Bruce Mcclain DO Work Phone: [facility] 10-30-2024 16:49-0400 Body height 154.[address] Bruce Mcclain DO Work Phone: [facility] 10-30-2024 16:49-0400 Body mass index (BMI) [Ratio] 35.9 kg/m2 Dr. Bruce Mcclain DO Work Phone: [facility] 10-30-2024 16:49-0400 Body weight 86.[address] Bruce Mcclain DO Work Phone: [facility] 10-12-2024 14:57-0400 Body mass index (BMI) [Ratio] 34.87 kg/m2 Bruno Lares MD Work Phone: [facility] 10-12-2024 14:57-0400 Body weight 83.7 kg Bruno Lares MD Work Phone: [facility] 10-12-2024 14:57-0400 Diastolic blood pressure 73 mm[Hg] Bruno Lares MD Work Phone: [facility] 10-12-2024 14:57-0400 Heart rate 81 /min Bruno Lares MD Work Phone: [facility] 10-12-2024 14:57-0400 Respiratory rate 16 /min Bruno Lares MD Work Phone: [facility] 10-12-2024 14:57-0400 SaO2% (BldA) [Mass fraction] 98 % Bruno Lares MD Work Phone: [facility] 10-12-2024 14:57-0400 Systolic blood pressure 113 mm[Hg] Bruno Lares MD Work Phone: [facility] 08-31-2024 13:54-0500 Body height 154.9 cm Bruno Lares MD Work Phone: [facility] 08-31-2024 13:54-0500 Body mass index (BMI) [Ratio] 34.03 kg/m2 Bruno Lares MD Work Phone: [facility] 08-31-2024 13:54-0500 Body weight 81.7 kg Bruno Lares MD Work Phone: [facility] 08-31-2024 13:54-0500 Diastolic blood pressure 70 mm[Hg] Bruno Lares MD Work Phone: [facility] 08-31-2024 13:54-0500 Heart rate 78 /min Bruno Lares MD Work Phone: [facility] 08-31-2024 13:54-0500 SaO2% (BldA) [Mass fraction] 99 % Bruno Lares MD Work Phone: [facility] 08-31-2024 13:54-0500 Systolic blood pressure 107 mm[Hg] Bruno Lares MD Work Phone: [facility] 08-03-2024 13:27-0500 Body height 154.9 cm Bruno Lares MD Work Phone: [facility] 08-03-2024 13:27-0500 Body mass index (BMI) [Ratio] 35.71 kg/m2 Bruno Lares MD Work Phone: [facility] 08-03-2024 13:27-0500 Body weight 85.73 kg Bruno Lares MD Work Phone: [facility] 08-03-2024 13:27-0500 Diastolic blood pressure 53 mm[Hg] Bruno Lares MD Work Phone: [facility] 08-03-2024 13:27-0500 Heart rate 86 /min Bruno Lares MD Work Phone: [facility] 08-03-2024 13:27-0500 SaO2% (BldA) [Mass fraction] 97 % Bruno Lares MD Work Phone: [facility] 08-03-2024 13:27-0500 Systolic blood pressure 106 mm[Hg] Bruno Lares MD Work Phone: [facility] 07-07-2024 13:28-0500 Body height 154.9 cm [address] [facility] 07-07-2024 13:28-0500 Body mass index (BMI) [Ratio] 34.77 kg/m2 Pst [address] [facility] 07-07-2024 13:28-0500 Body temperature 98.91 [degF] Pst 1 [facility] 07-07-2024 13:28-0500 Body weight 83.46 kg Pst [address] [facility] 07-07-2024 13:28-0500 Diastolic blood pressure 77 mm[Hg] Pst [address] [facility] 07-07-2024 13:28-0500 Heart rate 77 /min Pst [address] [facility] 07-07-2024 13:28-0500 Respiratory rate 14 /min Pst 1 [facility] 07-07-2024 13:28-0500 SaO2% (BldA) [Mass fraction] 96 % Pst [address] [facility] 07-07-2024 13:28-0500 Systolic blood pressure 135 mm[Hg] Pst [address] [facility] 07-04-2024 11:25-0500 Body mass index (BMI) [Ratio] 33.65 kg/m2 Isacc Davis MD Work Phone: [facility] 07-04-2024 11:25-0500 Body temperature 98.1 [degF] Isacc Davis MD Work Phone: [facility] 07-04-2024 11:25-0500 Body weight 82.1 kg Isacc Davis MD Work Phone: [facility] 07-04-2024 11:25-0500 Diastolic blood pressure 76 mm[Hg] Isacc Davis MD Work Phone: [facility] 07-04-2024 11:25-0500 Heart rate 88 /min Isacc Davis MD Work Phone: [facility] 07-04-2024 11:25-0500 SaO2% (BldA) [Mass fraction] 97 % Isacc Davis MD Work Phone: [facility] 07-04-2024 11:25-0500 Systolic blood pressure 136 mm[Hg] Isacc Davis MD Work Phone: [facility] 06-19-2024 13:00-0500 Body height 156.2 cm Marifer Foy MD Work Phone: [facility] 06-19-2024 13:00-0500 Body mass index (BMI) [Ratio] 34.69 kg/m2 Marifer Foy MD Work Phone: [facility] 06-19-2024 13:00-0500 Body temperature 97.3 [degF] Marifer Foy MD Work Phone: [facility] 06-19-2024 13:00-0500 Body weight 84.64 kg Marifer Foy MD Work Phone: [facility] 06-19-2024 13:00-0500 Diastolic blood pressure 58 mm[Hg] Marifer Foy MD Work Phone: [facility] 06-19-2024 13:00-0500 Heart rate 101 /min Marifer Foy MD Work Phone: [facility] 06-19-2024 13:00-0500 SaO2% (BldA) [Mass fraction] 97 % Marifer Foy MD Work Phone: [facility] 06-19-2024 13:00-0500 Systolic blood pressure 138 mm[Hg] Marifer Foy MD Work Phone: [facility] 06-08-2024 10:25-0500 Body mass index (BMI) [Ratio] 35.06 kg/m2 Bruno Lares MD Work Phone: [facility] 06-08-2024 10:25-0500 Body weight 82.1 kg Bruno Lares MD Work Phone: [facility] 06-08-2024 10:25-0500 Diastolic blood pressure 80 mm[Hg] Bruno Lares MD Work Phone: [facility] 06-08-2024 10:25-0500 Heart rate 71 /min Bruno Lares MD Work Phone: [facility] 06-08-2024 10:25-0500 Respiratory rate 16 /min Bruno Lares MD Work Phone: [facility] 06-08-2024 10:25-0500 SaO2% (BldA) [Mass fraction] 97 % Bruno Lares MD Work Phone: [facility] 06-08-2024 10:25-0500 Systolic blood pressure 132 mm[Hg] Bruno Lares MD Work Phone: [facility] 05-22-2024 11:41-0400 Diastolic blood pressure 63 mm[Hg] Bruno Lares MD Work Phone: [facility] 05-22-2024 11:41-0400 Systolic blood pressure 131 mm[Hg] Bruno Lares MD Work Phone: [facility] 05-22-2024 11:39-0400 Body mass index (BMI) [Ratio] 35.53 kg/m2 Bruno Lares MD Work Phone: [facility] 05-22-2024 11:39-0400 Body weight 83.2 kg Bruno Lares MD Work Phone: [facility] 05-22-2024 11:39-0400 Heart rate 77 /min Bruno Lares MD Work Phone: [facility] 05-22-2024 11:39-0400 Respiratory rate 16 /min Bruno Lares MD Work Phone: [facility] 05-22-2024 11:39-0400 SaO2% (BldA) [Mass fraction] 96 % Bruno Lares MD Work Phone: [facility] 05-27-2023 13:18-0400 Diastolic Blood Pressure Non-Invasive 83 1 NIDAL CHOUJAA DO [facility] 05-27-2023 13:18-0400 Heart rate 78 /min NIDAL CHOUJAA DO [facility] 05-27-2023 13:18-0400 Reason For Taking VItal Signs NIDAL CHOUJAA DO [facility] 05-27-2023 13:18-0400 Respiratory rate 16 /min NIDAL CHOUJAA DO [facility] 05-27-2023 13:18-0400 Systolic Blood Pressure Non-Invasive 144 1 NIDAL CHOUJAA DO [facility] 05-27-2023 11:52-0400 Diastolic Blood Pressure Non-Invasive 81 1 NIDAL CHOUJAA DO [facility] 05-27-2023 11:52-0400 Heart rate 77 /min NIDAL CHOUJAA DO [facility] 05-27-2023 11:52-0400 Reason For Taking VItal Signs NIDAL CHOUJAA DO [facility] 05-27-2023 11:52-0400 Respiratory rate 16 /min NIDAL CHOUJAA DO [facility] 05-27-2023 11:52-0400 Systolic Blood Pressure Non-Invasive 138 1 NIDAL CHOUJAA DO [facility] 05-27-2023 10:49-0400 Body temperature 99.14 [degF] NIDAL CHOUJAA DO [facility] 05-27-2023 10:49-0400 Body weight 80 kg NIDAL CHOUJAA DO [facility] 05-27-2023 10:49-0400 Diastolic Blood Pressure Non-Invasive 65 1 NIDAL CHOUJAA DO [facility] 05-27-2023 10:49-0400 Heart rate 100 /min NIDAL CHOUJAA DO [facility] 05-27-2023 10:49-0400 Respiratory rate 16 /min NIDAL CHOUJAA DO [facility] 05-27-2023 10:49-0400 Systolic Blood Pressure Non-Invasive 147 1 NIDAL CHOUJAA DO [facility] 07-07-2022 12:00-0500 Body height 157 cm Jade Otoole MD Work Phone: [facility] 07-07-2022 12:00-0500 Body temperature 97.81 [degF] Jade Otoole MD Work Phone: [facility] 07-07-2022 12:00-0500 Body weight 81.65 kg Jade Otoole MD Work Phone: [facility] 07-07-2022 12:00-0500 Diastolic blood pressure 63 mm[Hg] Jade Otoole MD Work Phone: [facility] 07-07-2022 12:00-0500 Heart rate 71 /min Jade Otooel MD Work Phone: [facility] 07-07-2022 12:00-0500 SaO2% (BldA) [Mass fraction] 99 % Jade Otoole MD Work Phone: [facility] 07-07-2022 12:00-0500 Systolic blood pressure 131 mm[Hg] Jade Otoole MD Work Phone: [facility] Encounters Encounter Date Encounter Type Care Provider Facility Start: 06-05-2025 End: 06-05-2025 ambulatory BRUNO LARES Facility:[facility] Start: 05-31-2025 End: 05-31-2025 ambulatory CHAU HOROWITZ Facility:[facility] Start: 05-24-2025 End: 05-24-2025 ambulatory TERRIE GOLDSTEIN IMPORTER EXPORTER-DRYING MACHINE RECEIVER Facility:[facility] Start: 05-24-2025 End: 05-24-2025 Patient encounter procedure KATALINA TANNER MD [facility] Start: 05-18-2025 ambulatory BRUNO LARES Facility :[id number] Start: 04-06-2025 End: 04-06-2025 Patient encounter procedure Chau Horowitz MD Work Phone: [facility] Comment on above: Carpal tunnel syndro me, left (Primary Dx); Right carpal tunnel syndrome Start: 04-06-2025 End: 04-06-2025 ambulatory CHAU HOROWITZ Facility:[facility] Start: 03-29-2025 End: 03-29-2025 Patient encounter procedure Imani Bermudez RN PROGRESSIVE CARE-C -[facility] Work Phone: Start: 03-29-2025 End: 03-29-2025 ambulatory Terrie Goldstein RN PROGRESSIVE CARE-C -[facility] Start: 03-20-2025 End: 03-20-2025 ambulatory CHAU HOROWITZ Facility:[facility] Start: 03-18-2025 End: 03-19-2025 Refill Bruno Lares MD Work Phone: [facility] Comment on above: Refill Request Start: 03-01-2025 Encounter for other preprocedural examination IVONNE AVILA [facility] Start: 03-01-2025 End: 03-01-2025 ambulatory TERRIE MAOEUGENIO GOLDSTEIN Facility:[facility] Start: 03-01-2025 End: 03-01-2025 Admission to establishment [facility] [place] [facility] Work Phone: Pre Anesthesia Start: 03-01-2025 End: 03-01-2025 Anesthesia consultation [facility] 1 Work Phone: Pre Anesthesia Comment on above: 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) (Primary Dx); Primary hypertension; Hypercholesterolemia; Coronary artery disease involving [place] coronary artery of [place] heart, unspecified whether angina present; Cardiac murmur; Gastroesophageal reflux disease, unspecified whether esophagitis present; Diverticulitis of large intestine without perforation or abscess with bleeding; Stage 3 chronic kidney disease, unspecified whether stage 3a or 3b CKD (HCC); Type 2 diabetes mellitus with hyperglycemia, with long-term current use of insulin (HCC); Anemia of chronic disease; Obesity, Class II, BMI 35-39.9; History of breast cancer; Anxiety with depression; History of colon cancer; Pre-op evaluation Start: 03-01-2025 End: 03-01-2025 Preprocedural examination done [facility] 1 Work Phone: [facility] Start: 02-23-2025 End: 02-23-2025 Orders Only Chau Horowitz MD Work Phone: [facility] Comment on above: Carpal tunnel syndro me, right (Primary Dx) Bilateral carpal april aramis syndrome (Primary Dx) Start: 02-15-2025 End: 02-15-2025 Office outpatient visit 25 minutes Bruno Lares MD Work Phone: [facility] Comment on above: Bilateral carpal april aramis syndrome (Primary Dx); S/P cervical spinal fusion Start: 02-15-2025 End: 02-15-2025 ambulatory BRUNO LARES [facility] Start: 02-14-2025 ambulatory [facility] Facility :[facility] Start: 02-14-2025 End: 02-14-2025 Subsequent hospital visit by physician Karla Jauregui (1.5t) [facility] Comment on above: S/P cervical spinal fusion [Z98.1] Start: 02-08-2025 End: 02-08-2025 Orders Only Bruno Lares MD Work Phone: [facility] Comment on above: S/P cervical spinal fusion (Primary Dx) Start: 02-05-2025 End: 02-05-2025 Patient encounter procedure Emg 2 Neur [facility] (Max Weight: 850) Neurology Start: 02-05-2025 End: 02-05-2025 ambulatory TERRIE GOLDSTEIN Neurology Start: 01-17-2025 End: 01-17-2025 Office outpatient visit 25 minutes Bruno Lares MD Work Phone: [facility] Comment on above: S/P cervical spinal fusion (Primary Dx) Start: 01-17-2025 End: 01-17-2025 ambulatory BRUNO LARES Facility:[facility] Start: 01-15-2025 ambulatory BRUNO LARES Facility :[facility] Start: 01-15-2025 End: 01-15-2025 Subsequent hospital visit by physician Xr Bourg Rn Cardiac Rehab [facility] [employer] OPER[employer] Comment on above: S/P cervical spinal fusion [Z98.1] Start: 12-28-2024 End: 12-28-2024 Patient encounter procedure Imani Bermudez NP-C -[facility] Work Phone: Start: 12-28-2024 End: 12-28-[address] Bruce Mcclain DO Work Phone: [facility] Work Phone: Start: 12-28-2024 End: 12-28-2024 ambulatory Imani Bermudez Facility:[facility] Start: 11-27-2024 End: 01-01-2025 ambulatory TERRIE GOLDSTEIN IMPORTER EXPORTER-DRYING MACHINE RECEIVER Facility:[facility] Start: 11-27-2024 End: 01-01-2025 Physical therapy management TERRIE GOLDSTEIN IMPORTER EXPORTER-DRYING MACHINE RECEIVER [facility] Start: 11-22-2024 Non-patient / Non-visit Dr. Sandhya Simms MD -[facility] Work Phone: Start: 11-21-2024 Non-patient / Non-visit Dr. Sandhya Simms MD -[facility] Work Phone: Start: 11-20-2024 ambulatory Terrie RYDER Facility:[facility] Start: 11-20-2024 End: 11-22-2024 Evaluation and management of inpatient Dr. Ac Simms MD -[facility] 3 Work Phone: Start: 11-16-2024 End: 11-16-2024 Patient encounter procedure Imani ROBBINS -Laboratory Work Phone: Start: 11-16-2024 End: 11-16-2024 Patient encounter procedure Imani ROBBINS -[facility] Work Phone: Start: 11-16-2024 End: 11-16-2024 ambulatory Terrie RYDER Facility:[facility] Start: 11-16-2024 End: 11-16-2024 ambulatory Terrie RYDER Facility:[facility] Start: 11-02-2024 Non-patient / Non-visit Dr. Sushant deluna MD -[facility] Work Phone: Start: 11-01-2024 Non-patient / Non-visit Charles Estrada nd DO -[facility] Start: 11-01-2024 Non-patient / Non-visit Dr. Sushant deluna MD -[facility] Work Phone: Start: 10-31-2024 Non-patient / Non-visit Dr. Sushant deluna MD -[facility] Work Phone: Start: 10-31-2024 End: 10-31-2024 ambulatory Terrie RYDER Facility:[facility] Start: 10-31-2024 End: 10-31-2024 Non-patient / Non-visit Dr. Kevin Kerr MD -[facility] Work Phone: Start: 10-30-2024 End: 11-02-2024 Evaluation and management of inpatient Dr. Joe Chance MD -[facility] 3 Work Phone: Start: 10-30-2024 Non-patient / Non-visit Dr. Joe morin MD -[facility] Work Phone: Start: 10-30-2024 ambulatory Terrie RYDER Facility:[facility] Start: 10-25-2024 End: 10-25-2024 Emergency department patient visit TERRIE GOLDSTEIN APRN-DRYING MACHINE RECEIVER Facility:[facility] Start: 10-12-2024 End: 10-12-2024 Postop follow up visit related to original px Bruno Larse MD Work Phone: [facility] Comment on above: S/P cervical spinal fusion (Primary Dx) Start: 10-12-2024 End: 10-12-2024 ambulatory BRUNO LARES Facility:[facility] Start: 10-12-2024 End: 10-12-2024 Subsequent hospital visit by physician Xr Bourg Rn Cardiac Rehab [facility] [place] [employer] OPER[employer] Comment on above: S/P cervical spinal fusion [Z98.1] Start: 08-31-2024 End: 08-31-2024 Postop follow up visit related to original px Bruno Lares MD Work Phone: [facility] Comment on above: S/P cervical spinal fusion (Primary Dx) Start: 08-31-2024 End: 08-31-2024 ambulatory BRUNO LARES Facility:[facility] Start: 08-31-2024 End: 08-31-2024 Subsequent hospital visit by physician Xr Bourg Rn Cardiac Rehab [facility] [place] [employer] OPER[employer] Comment on above: S/P cervical spinal fusion [Z98.1] Start: 08-03-2024 End: 08-03-2024 ambulatory TERRIE GOLDSTEIN IMPORTER EXPORTER-DRYING MACHINE RECEIVER Facility:[facility] Start: 08-03-2024 End: 08-03-2024 Patient encounter procedure TERRIE GOLDSTEIN IMPORTER EXPORTER-DRYING MACHINE RECEIVER [facility] Start: 08-03-2024 End: 08-03-2024 Postop follow up visit related to original px Bruno Lares MD Work Phone: [facility] Comment on above: S/P cervical spinal fusion (Primary Dx) Start: 08-03-2024 End: 08-03-2024 ambulatory BRUNO LARES Facility:[facility] Start: 08-03-2024 End: 08-03-2024 Subsequent hospital visit by physician Xr Bourg Rn Cardiac Rehab [facility] Comment on above: S/P cervical spinal fusion [Z98.1] Start: 07-21-2024 Preprocedural examination done Bruno Lares MD Work Phone: [facility] Start: 07-21-2024 End: 07-28-2024 Evaluation and management of inpatient IVONNE AVILA Facility:[facility] Start: 07-20-2024 End: 07-20-2024 Telephone encounter Dory Gallegos APRN.CNP Work Phone: [facility] Comment on above: abnormal labs Preparations For Aniceto vaishali Start: 07-12-2024 End: 07-12-2024 Telephone encounter Bruno Lares MD Work Phone: [facility] Comment on above: Preparations For Aniceto vaishali Start: 07-07-2024 Encounter for other preprocedural examination CHAU HOROWITZ [facility] Start: 07-07-2024 End: 07-07-2024 Preprocedural examination done Pst [address] [facility] Start: 07-07-2024 End: 07-07-2024 Orders Only Bruno Lares MD Work Phone: [facility] Comment on above: Spinal stenosis of c ervical region (Primary Dx); Other abnormal findings in urine; Abnormal coagulation profile Cardiac murmur (Prim leora Dx); Hypercholesterolemia; Gastroesophageal reflux disease, unspecified whether esophagitis present; Malignant neoplasm of upper-outer quadrant of right breast in female, estrogen receptor positive (HCC); Anemia of chronic disease; Pre-op examination; 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); Coronary artery disease involving [place] coronary artery of [place] heart, unspecified whether angina present Presurgical Testing Start: 07-04-2024 End: 07-04-2024 Patient encounter procedure Isacc Davis MD Work Phone: Hematology/Oncology Start: 07-04-2024 End: 07-04-2024 ambulatory Isacc Davis MD Work Phone: Hematology/Oncology Comment on above: Malignant neoplasm o f upper-outer quadrant of right breast in female, estrogen receptor positive (HCC) (Primary Dx) Start: 06-19-2024 End: 06-19-2024 ambulatory MARIFER FOY Facility:[facility] Start: 06-19-2024 End: 06-19-2024 Patient encounter procedure Marifer Foy MD Work Phone: General Surgery Comment on above: Ventral hernia witho ut obstruction or gangrene (Primary Dx) Start: 06-19-2024 End: 06-19-2024 Office outpatient visit 25 minutes Bruno Lares MD Work Phone: [facility] Comment on above: Cervical stenosis of spine (Primary Dx) Start: 06-19-2024 End: 06-19-2024 ambulatory IVONNE PRADO DANAMIN Facility:[facility] Start: 06-08-2024 End: 06-08-2024 Office outpatient visit 25 minutes Bruno Lares MD Work Phone: [facility] Comment on above: Spinal stenosis of c ervical region (Primary Dx) Start: 06-08-2024 End: 06-08-2024 Orders Only Bruno Lares MD Work Phone: [facility] Comment on above: 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) (Primary Dx) Spinal stenosis of c ervical region [M48.02] Start: 06-06-2024 End: 06-06-2024 Telephone encounter Bruno Lares MD Work Phone: [facility] Comment on above: Preparations For Aniceto vaishali Start: 06-03-2024 End: 06-03-2024 ambulatory BRUNO LARES MD Facility:[facility] Start: 06-03-2024 End: 06-03-2024 Patient encounter procedure BRUNO LARES MD [facility] Start: 06-02-2024 End: 06-02-2024 Telephone encounter Bruno Lares MD Work Phone: [facility] Start: 06-01-2024 End: 06-01-2024 Orders Only Bruno Lares MD Work Phone: [facility] Comment on above: Spinal stenosis of c ervical region (Primary Dx); Other specified abnormal findings of blood chemistry Start: 05-24-2024 End: 05-24-2024 Orders Only Bruno Lares MD Work Phone: [facility] Comment on above: 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) (Primary Dx) Start: 05-22-2024 End: 05-22-2024 Office outpatient new 45 minutes Bruno Lares MD Work Phone: [facility] Comment on above: Neck pain (Primary D x); Spinal stenosis of cervical region; Tremors of nervous system; Cervical stenosis of spine; Other specified disorders of bone density and structure, other site Start: 05-22-2024 End: 05-22-2024 Subsequent hospital visit by physician Xr Bourg Rn Cardiac Rehab [facility] [place] [employer] OPERATOR Comment on above: Neck pain [M54.2] Start: 02-11-2024 End: 02-11-2024 ambulatory TERRIE GOLDSTEIN IMPORTER EXPORTER-DRYING MACHINE RECEIVER Facility:[facility] Start: 02-11-2024 End: 02-11-2024 Patient encounter procedure TERRIE GOLDSTEIN IMPORTER EXPORTER-DRYING MACHINE RECEIVER [facility] Start: 02-01-2024 ambulatory LORI CABELLO MD Facilit y:A Start: 01-31-2024 End: 01-31-2024 ambulatory LORI CABELLO MD Facility:A Start: 01-31-2024 End: 01-31-2024 Patient encounter procedure LORI CABELLO MD [facility] Start: 01-07-2024 End: 01-07-2024 ambulatory TERRIE GOLDSTEIN IMPORTER EXPORTER-DRYING MACHINE RECEIVER Facility:A Start: 12-10-2023 Telephone encounter Isacc sage MD Work Phone: Hematology/Oncology Comment on above: Patient Question Start: 12-03-2023 ambulatory TERRIE TIM IMPORTER EXPORTER-DRYING MACHINE RECEIVER Facility:B Start: 12-03-2023 End: 05-25-2024 Physical therapy management TERRIE Lion ANGELITA IMPORTER EXPORTER-DRYING MACHINE RECEIVER [facility] Start: 11-24-2023 End: 11-24-2023 ambulatory TERRIE Lion ANGELITA IMPORTER EXPORTER-DRYING MACHINE RECEIVER Facility:B Start: 11-24-2023 End: 11-24-2023 Patient encounter procedure TERRIE GOLDSTEIN IMPORTER EXPORTER-DRYING MACHINE RECEIVER [facility] Start: 11-19-2023 End: 11-19-2023 ambulatory TERRIE GOLDSTEIN IMPORTER EXPORTER-DRYING MACHINE RECEIVER Facility:B Start: 11-19-2023 End: 11-19-2023 Patient encounter procedure TERRIE Lion ANGELITA IMPORTER EXPORTER-DRYING MACHINE RECEIVER [facility] Start: 11-18-2023 End: 11-22-2023 ambulatory TERRIE GOLDSTEIN IMPORTER EXPORTER-DRYING MACHINE RECEIVER Facility:B Start: 11-18-2023 End: 11-22-2023 Outreach Lab TERRIE Lion ANGELITA IMPORTER EXPORTER-DRYING MACHINE RECEIVER [facility] Start: 11-15-2023 End: 11-15-2023 ambulatory TERRIE GOLDSTEIN IMPORTER EXPORTER-DRYING MACHINE RECEIVER Facility:B Start: 11-15-2023 End: 11-15-2023 Patient encounter procedure TERRIE GOLDSTEIN IMPORTER EXPORTER-DRYING MACHINE RECEIVER [facility] Start: 05-27-2023 End: 05-27-2023 Emergency department patient visit YUSRA STOCKTON DO [facility] Start: 05-19-2023 ambulatory TERRIE TIM IMPORTER EXPORTER-DRYING MACHINE RECEIVER Facility:B Start: 05-19-2023 End: 05-23-2023 Outreach Lab TERRIE GOLDSTEIN IMPORTER EXPORTER-DRYING MACHINE RECEIVER [facility] Start: 05-17-2023 End: 05-17-2023 ambulatory TERRIE GOLDSTEIN IMPORTER EXPORTER-DRYING MACHINE RECEIVER Facility:B Start: 05-17-2023 End: 05-17-2023 Patient encounter procedure TERRIE GOLDSTEIN IMPORTER EXPORTER-DRYING MACHINE RECEIVER [facility] Start: 05-10-2023 End: 05-10-2023 ambulatory TERRIE GOLDSTEIN IMPORTER EXPORTER-DRYING MACHINE RECEIVER Facility:B Start: 09-02-2022 End: 09-02-2022 Patient encounter procedure TERRIE GOLDSTEIN IMPORTER EXPORTER-DRYING MACHINE RECEIVER [facility] Start: 07-31-2022 Telephone encounter Jade Otoole MD Work Phone: Hematology/Oncology Comment on above: Patient Update Start: 07-07-2022 End: 07-07-2022 ambulatory Jade Otoole MD Work Phone: Hematology/Oncology Comment on above: Anemia, unspecified type (Primary Dx); Adenocarcinoma of rectosigmoid junction (HCC); Malignant neoplasm of upper-outer quadrant of right breast in female, estrogen receptor positive (HCC) Start: 07-07-2022 End: 07-07-2022 Patient encounter procedure Jade Otoole MD Work Phone: [facility] Start: 04-03-2022 End: 04-03-2022 Patient encounter procedure TERRIE GOLDSTEIN IMPORTER EXPORTER-DRYING MACHINE RECEIVER [facility] Start: 02-12-2022 End: 02-16-2022 Outreach Lab NEELIMA ARORA IMPORTER EXPORTER-DRYING MACHINE RECEIVER [facility] Start: 10-24-2021 End: 10-24-2021 Patient encounter procedure IVONNE AVILA MD [facility] Start: 10-23-2021 End: 10-27-2021 Outreach Lab JOSE AG IMPORTER EXPORTER-DRYING MACHINE RECEIVER [facility] Start: 07-06-2021 End: 07-06-[address] ELIAS WELDON DO [facility] Start: 09-02-2017 Ambulatory [facility] Start: 08-09-2017 Ambulatory [facility] Procedures Date Procedure Procedure Detail Performing Clinician Start: 02-05-2025 Nerve conduction franklyn dies 5-6 studies Bruno Lares MD Work Phone: Start: 12-28-2024 Total iron binding c apacity measurement Dr. Bruce Mcclain DO Work Phone: Start: 11-22-2024 Serum inorganic phos phate measurement Dr. Bruce Mcclain DO Work Phone: Start: 11-21-2024 Legionella pneumophi la antigen assay Dr. Bruce Mcclain DO Work Phone: Start: 11-21-2024 End: 11-21-2024 Streptococcus pneumoniae antigen assay Dr. Bruce Mcclain DO Work Phone: Start: 11-21-2024 CT of chest without contrast Dr. Bruce Mcclain DO Work Phone: Start: 11-21-[address] Bruce Mcclain DO Work Phone: Start: 11-20-2024 Urnls dip stick/tabl et reagent auto microscopy Dr. Bruce Mcclain DO Work Phone: Start: 11-20-2024 CT cervical spine wi thout contrast Dr. Bruce Mcclain DO Work Phone: Start: 11-20-2024 CT of abdomen and pe lvis without contrast Dr. Bruce Mcclain DO Work Phone: Start: 11-20-2024 CT of head without contrast Dr. Bruce Mcclain DO Work Phone: Start: 11-20-2024 Plain chest X-ray Dr. Kuldip Mcclain DO Work Phone: Start: 11-20-2024 SARS-CoV-2, Influenz a & RSV (PCR) Dr. Bruce Mcclain DO Work Phone: Start: 11-16-2024 Total iron binding c apacity measurement Dr. Bruce Mcclain DO Work Phone: Start: 11-02-[address] Bruce Mcclain DO Work Phone: Start: 11-01-[address] Bruce Mcclain DO Work Phone: Start: 11-01-2024 Serum inorganic phos phate measurement Dr. Bruce Mcclain DO Work Phone: Start: 10-30-2024 Urnls dip stick/tabl et reagent auto microscopy Dr. Bruce Mcclain DO Work Phone: Start: 10-30-2024 Computed tomography of abdomen and pelvis with intravenous contrast Dr. Bruce Mcclain DO Work Phone: Start: 10-30-2024 Measurement of occul t blood in stool specimen using immunoassay Dr. Bruce Mcclain DO Work Phone: Start: 07-07-2024 Antibody screen NANCY HOROWITZ Comment on above: Order Comment: Speci men Type: BLOOD SPECIMENOrdering Facility: [facility] Address: [address] [place], [place] [address] [address] Performed By: #### T SCR30 ####[facility] BLOOD BANKCLIA [id number] [place] [address] [place] Start: 07-07-2024 Electrocardiogram AMANDA HOROWITZ Start: 08-22-2021 Colonoscopy Jade Otoole MD Work Phone: Start: 09-21-2019 Antibody screen Comment on above: Performed By: #### T &S #### [facility] [address] [address] Start: 09-13-[address] ELIAS WELDON DO Start: 07-02-2011 Xcapsl ctrc rmvl ins j io lens prosth w/o ecp DR ELIAS WELDON DO Comment on above: left and right Start: 08-02-1985 Fracture of ankle (disorder) DR ELIAS WELDON DO Comment on above: Left Biopsy of breast DR ELIAS ELIZONDO DO Comment on above: Left section DR ELIAS ELIZONDO DO Colonoscopy DR ELIAS WELDON D O Tonsillectomy DR ELIAS WELDON DO Plan of Treatment Date Care Activity Detail Author Start: 03-01-2026 Complete blood count Hemoglobin/Hematocrit [facility] Start: 03-01-2026 Creatinine measurement Serum Creatinine [facility] Start: 10-12-2025 BP Controlled (<130/80) BP Controlled (<130/80) [facility] Start: 08-31-2025 BP Controlled (<130/80) BP Controlled (<130/80) [facility] Start: 08-03-2025 BP Controlled (<130/80) BP Controlled (<130/80) [facility] Start: 07-28-2025 Complete blood count Hemoglobin/Hematocrit [facility] Start: 07-28-2025 Creatinine measurement Serum Creatinine [facility] Start: 07-19-2025 End: 07-19-2025 Patient encounter procedure [facility] [place] INVERTED BLOCK OPERATOR Comment on above: xrays 6 month follow up wi th xrays Start: 07-07-2025 Creatinine measurement Serum Creatinine [facility] Start: 07-04-2025 End: 07-04-2025 ambulatory Hematology/Oncology Comment on above: 1 YR OV* Start: 07-04-2025 End: 07-04-2025 ambulatory 07/04/2025 11:30 AM EST Visit (SP) Office Hematology/Oncology [address] [place] [address] [place] [address] [place] [address] 1YR OV Hematology/Oncology Comment on above: 1YR OV Start: 06-15-2025 End: 06-15-2025 Patient encounter procedure 06/15/2025 11:00 AM EST Office Visit [facility] [address] [place] [address] Chau Horowitz MD [address] [place] [address] left wrist sx 05/31 [facility] Comment on above: left wrist sx 05/31 Start: 06-08-2025 Diabetic foot examination Diabetic Foot Exam [facility] Start: 05-31-2025 End: 05-31-2025 Admission to same day surgery center 05/31/2025 10:30 AM EDT - 05/31/2025 11:30 AM EDT Surgery [facility] [address] [facility] [address] [place] [address] Chau Horowitz MD [address] [place] [address] DECOMPRESSION NERVE MEDIAN CARPAL TUNNEL [facility] Comment on above: DECOMPRESSION NERVE MEDIAN CARPAL TUNNEL Start: 05-31-2025 End: 05-31-2025 Neuroplasty &/transpos median nrv carpal tunne DECOMPRESSION NERVE MEDIAN CARPAL TUNNEL Carpal tunnel syndrome, left 05/31/2025 10:30 AM EDT [facility] Start: 05-31-2025 Subsequent hospital visit by physician 05/31/2025 10:30 AM EDT Hospital Encounter [facility] [address] [place] [address] Chau Horowitz MD [address] [place] [address] Carpal tunnel syndrome, left [G56.02] [facility] Comment on above: Carpal tunnel syndrome, left [G56.02] Start: 05-22-2025 End: 05-22-2025 Patient encounter procedure 05/22/2025 1:00 PM EDT [address] [place] [phone] Bruno Lares MD [address] [place] [address] 3 month follow [facility] Comment on above: 3 month follow Start: 05-18-2025 End: 05-18-2025 Patient encounter procedure 05/18/2025 1:00 PM EDT [facility] [address] [place] [address] XR CERV OTHER 4V AP/LAT/FLX/EXT [facility] Comment on above: XR CERV OTHER 4V AP/LAT/FLX/EXT Start: 04-06-2025 End: 04-06-2025 Patient encounter procedure 04/06/2025 11:30 AM EDT Office Visit [facility] [address] [place] [address] Chau Horowitz MD [address] [place], [place] [id number] rt wrist sx 03/20 [facility] Comment on above: rt wrist sx 03/20 Start: 04-02-2025 Influenza vaccination Influenza Vaccine (#1) [facility] Start: 03-20-2025 End: 03-20-2025 Admission to same day surgery center [facility] Surgery Comment on above: DECOMPRESSION NERVE MEDIAN CARPAL TUNNEL Start: 03-20-2025 End: 03-20-2025 Neuroplasty &/transpos median nrv carpal tunne [facility] Start: 03-20-2025 Subsequent hospital visit by physician [facility] Surgery Comment on above: Carpal tunnel syndrome, right [G56.01] Start: 02-23-2025 End: 02-23-2025 Patient encounter procedure 02/23/2025 1:15 PM EDT Office Visit [facility] [address] [place] [address] Chau Horowitz MD [address] [place], [place] [id number] bilat hand/wrist/ emg/nct in epic/ Dr. Lares ref/tlb [facility] Comment on above: bilat hand/wrist/ emg/nct in epic/ Dr. Stacy pike ref/tlb Start: 02-15-2025 End: 02-15-2025 Follow-up encounter 02/15/2025 11:30 AM EDT [address] [place] [phone] Bruno Lares MD [address] [place] [address] EMG follow up [facility] Comment on above: EMG follow up Start: 02-14-2025 End: 02-14-2025 Patient encounter procedure 02/14/2025 2:15 PM EDT Appointment [facility] [address] [place], [place] [id number] MRI CERVICAL SPINE WO IVCON [facility] Comment on above: MRI CERVICAL SPINE WO IVCON Start: 02-05-2025 End: 02-05-2025 ambulatory 02/05/2025 1:05 PM EDT Procedure Neurology [address] [place], [place] [address] [address] [facility]G(NEURO/NI) Neurology Comment on above: EMG(NEURO/NI) Start: 01-17-2025 End: 01-17-2025 Patient encounter procedure 01/17/2025 11:00 AM EDT Office Visit [place] [id number] [facility] [place] [address] Bruno Lares MD [address] [facility] [place] [address] 3 mon fu [facility] Comment on above: 3 mon fu Start: 01-11-2025 End: 01-11-2025 Patient encounter procedure [facility] [place] INVERTED BLOCK OPERATOR Comment on above: XRAY 3 MO F/U Start: 01-05-2025 Hemoglobin A1c measurement HbA1C [facility] Start: 11-22-2024 Patient discharge [facility] Start: 11-21-2024 [facility] Start: 11-21-2024 Physiotherapy of chest [facility] Start: 11-20-2024 Application of intermittent pneumatic compression device [facility] Start: 11-20-2024 Following clinical pathway protocol [facility] Start: 11-20-2024 Aspiration precautions [facility] Start: 11-20-2024 Assessment of risk of venous thromboembolism [facility] Start: 11-20-2024 Care regimes management [facility] Start: 11-20-2024 Documentation procedure [facility] Start: 11-20-2024 Incentive spirometry [facility] Start: 11-20-2024 Inhalation therapy procedure [facility] Start: 11-20-2024 Insertion of catheter into peripheral vein [facility] Start: 11-20-2024 Measuring intake and output [facility] Start: 11-20-2024 Notification of physician [facility] Start: 11-20-2024 Oxygen therapy [facility] Start: 11-20-2024 Providing care according to standard [facility] Start: 11-20-2024 Provision of activity privileges [facility] Start: 11-20-2024 Referral to occupational therapist [facility] Start: 11-20-2024 Referral to service [facility] Start: 11-20-2024 End: 11-20-2024 [facility] Start: 11-20-2024 Admission procedure [facility] Start: 11-02-2024 Patient discharge [facility] Start: 10-31-2024 [facility] Start: 10-30-2024 Application of intermittent pneumatic compression device [facility] Start: 10-30-2024 Following clinical pathway protocol [facility] Start: 10-30-2024 Assessment of risk of venous thromboembolism [facility] Start: 10-30-2024 Insertion of catheter into peripheral vein [facility] Start: 10-30-2024 Oxygen therapy [facility] Start: 10-30-2024 Providing care according to standard [facility] Start: 10-30-2024 Referral to gastroenterology service [facility] Start: 10-30-2024 [facility] Start: 10-30-2024 Verification routine [facility] Start: 10-30-2024 Admission procedure [facility] Start: 10-30-2024 Hospital admission, emergency, from emergency room, medical nature [facility] Start: 10-12-2024 End: 10-12-2024 Patient encounter procedure [facility] GENER[facility] [place] INVERTED BLOCK OPERATOR Comment on above: XR CERV OTHER 4V 6 week f/u Start: 08-31-2024 End: 08-31-2024 Patient encounter procedure 08/31/2024 2:00 PM EST Office Visit [facility] [address] [facility] [place] [phone] Bruno Lares MD [address] [place] [phone] post op [facility] Comment on above: post op Start: 08-03-2024 End: 08-03-2024 Patient encounter procedure 08/03/2024 2:00 PM EST Office Visit [facility] [address] [facility] [place] [phone] Bruno Lares MD [address] [place] [phone] post op [facility] Comment on above: post op Start: 08-02-2024 Advance Directive Discussion Advance Directive Discussion [facility] Start: 07-21-2024 End: 07-21-2024 Admission to same day surgery center [facility] Comment on above: ARTHRODESIS ANT DISC PREP DISCECTOMY OST EOPHYTECTOMY DECOMPRES S CORD/NERVE ROOT C' BELOW C2--C5-C7 ACDF ARTHRODESIS CERVICAL POSTERIOR, BELOW C2 1ST SINGLE LEVEL--C4-T1 PCDF Start: 07-21-2024 End: 07-21-2024 Allograft for spine surgery only morselized ALLOGRAFT FOR SPINE SURGERY MORSELIZED 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) 07/21/2024 7:00 AM EST [facility] Start: 07-21-2024 End: 07-21-2024 Anesthesia consultation 07/21/2024 7:00 AM EST Anesthesia Event [facility] [address] [place] [address] Fern Ro SRNA [facility] Start: 07-21-2024 End: 07-21-2024 Anterior instrumentation 2-3 vertebral segments ANTERIOR INSTRUMENTATION 2 VERTEBRAL SEGMENTS 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) 07/21/2024 7:00 AM EST [facility] Start: 07-21-2024 End: 07-21-2024 Arthrd ant interbody decompress cervical belw c2 ARTHRODESIS ANT DISC PREP DISCECTOMY OSTEOPHYTECTOMY DECOMPRES S CORD/NERVE ROOT C' BELOW C2 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) 07/21/2024 7:00 AM EST [facility] Start: 07-21-2024 End: 07-21-2024 Arthrd ant interdy cervcl belw c2 ea addl ntrspc ARTHRODESIS ANT DISC PREP DISCECTOMY OSTEOPHYTECTOMY DECOM S CORD/NERVE ROOTS C' BELOW C2 EACH + 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) 07/21/2024 7:00 AM EST [facility] Start: 07-21-2024 End: 07-21-2024 Arthrodesis posterior/posterolateral ea addl [facility] Start: 07-21-2024 End: 07-21-2024 Arthrodesis pst/pstlat cervical belw c2 sgm ARTHRODESIS CERVICAL POSTERIOR, BELOW C2 1ST SINGLE LEVEL 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) 07/21/2024 7:00 AM EST [facility] Start: 07-21-2024 End: 07-21-2024 Autograft spine surgery local from same incision AUTOGRAFT FOR SPINE SURGERY ONLY, OBTAINED FROM SAME INCISION 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) 07/21/2024 7:00 AM EST [facility] Start: 07-21-2024 End: 07-21-2024 Insj biomchn dev intervertebral dsc spc w/arthrd INSERTION INTERBODY BIOMED DEVICE(S) W/ANT INSTR ANCHORING TO DISC SPACE W/INTERBODY FUSION,EA INTERSPACE 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) 07/21/2024 7:00 AM EST [facility] Start: 07-21-2024 End: 07-21-2024 You facetectomy & foramotomy 1 segment cervical DECOMPRESSION LAMINECTOMY CERVICAL, FACETECTOMY AND FORAMINOTOMY, SINGLE VERT SEGMENT LEVEL 2 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) 07/21/2024 7:00 AM EST [facility] Start: 07-21-2024 End: 07-21-2024 You facetectomy&foramtomy 1 sgm ea crv thrc/lmbr [facility] Start: 07-21-2024 End: 07-21-2024 Microsurg tqs req use operating microscope MICROSURGICAL TECHNIQUE FOR SPINAL PROCEDURES 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) 07/21/2024 7:00 AM EST [facility] Start: 07-21-2024 End: 07-21-2024 Posterior segmental instrumentation 3-6 vrt seg POSTERIOR SEGMENTAL INSTRUMENTATION FOLLOWING CERVICAL FUSION 3-6 LEVELS 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) 07/21/2024 7:00 AM EST [facility] Start: 07-21-2024 Subsequent hospital visit by physician 07/21/2024 7:00 AM EST Hospital Encounter [facility] [address] [facility] [place] [address] Bruno Lares MD [address] [place] [address] 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) [M48.02, G99.2] [facility] Comment on above: Stenosis of cervical spine with myelopat hy (HCC) [M48.02, G99.2] Start: 07-07-2024 End: 10-06-2024 aPTT in Platelet poor plasma by Coagulation assay ACTIVATED PARTIAL THROMBOPLASTIN TIME Lab Routine Spinal stenosis of cervical region Abnormal coagulation profile Expected: 07/07/2024, Expires: 10/06/[address] [facility] Comment on above: Expected: 07/07/2024, Expires: Start: 07-07-2024 End: 10-06-2024 Bacteria identified in Urine by Culture URINE CULTURE Microbiology Routine Spinal stenosis of cervical region Other abnormal findings in urine Expected: 07/07/2024, Expires: 10/06/[address] [facility] Comment on above: Expected: 07/07/2024, Expires: Start: 07-07-2024 End: 10-06-2024 CBC panel - Blood by Automated count COMPLETE BLOOD COUNT Lab Routine Spinal stenosis of cervical region Expected: 07/07/2024, Expires: 10/06/[address] [facility] Comment on above: Expected: 07/07/2024, Expires: Start: 07-07-2024 End: 10-06-2024 Comprehensive metabolic 2000 panel - Serum or Plasma COMPREHENSIVE METABOLIC PANEL Lab Routine Spinal stenosis of cervical region Expected: 07/07/2024, Expires: 10/06/[address] [facility] Comment on above: Expected: 07/07/2024, Expires: Start: 07-07-2024 End: 10-06-2024 PT panel - Platelet poor plasma by Coagulation assay PROTHROMBIN TIME Lab Routine Spinal stenosis of cervical region Abnormal coagulation profile Expected: 07/07/2024, Expires: 10/06/[address] [facility] Comment on above: Expected: 07/07/2024, Expires: Start: 07-07-2024 End: 10-06-2024 STAPHYLOCOCCUS AUREUS & MRSA SCREEN, PCR, NASAL STAPHYLOCOCCUS AUREUS & MRSA SCREEN, PCR, NASAL Lab Routine Spinal stenosis of cervical region Expected: 07/07/2024, Expires: 10/06/[address] [facility] Comment on above: Expected: 07/07/2024, Expires: Start: 07-07-2024 End: 10-06-2024 TYPE AND SCREEN,30 DAY TYPE AND SCREEN,30 DAY Blood Bank Routine Spinal stenosis of cervical region Expected: 07/07/2024, Expires: 10/06/[address] [facility] Comment on above: Expected: 07/07/2024, Expires: Start: 07-07-2024 End: 10-06-2024 Urinalysis complete panel - Urine URINALYSIS, WITH MICROSCOPIC Lab Routine Spinal stenosis of cervical region Expected: 07/07/2024, Expires: 10/06/[address] [facility] Comment on above: Expected: 07/07/2024, Expires: Start: 07-07-2024 End: 07-07-2024 ambulatory 07/07/2024 1:00 PM EST PAT Pre Surgical Testing [address] [place] [address] C5-C7 ACDF Pre Surgical Testing Comment on above: C5-C7 ACDF Start: 07-05-2024 End: 07-05-2024 ambulatory [facility] Comment on above: CBC /IRON STUDIES 1 YR OV/ LABS EARLY* Start: 07-04-2024 End: 07-04-2024 ambulatory [facility] Comment on above: CBC /IRON STUDIES 1 YR OV/ LABS EARLY* r/s from 07/05 Start: 06-19-2024 End: 06-19-2024 Patient encounter procedure 06/19/2024 1:15 PM EST Office Visit General Surgery [address] [address] Marifer Foy MD [address] [place] [phone] Unspecified hernia w/out obstruction/gangrene General Surgery Comment on above: Unspecified hernia w/out obstruction/gary grene Start: 06-08-2024 End: 06-08-2024 Patient encounter procedure RADIO CT SCAN [place] INVERTED BLOCK OPERATOR Comment on above: ct [address] fu with ct toda y CT CERVICAL WO Start: 06-01-2024 End: 08-31-2024 Hemoglobin A1c in Blood HEMOGLOBIN A1C Lab Routine Spinal stenosis of cervical region Other specified abnormal findings of blood chemistry Expected: 06/01/2024, Expires: 08/31/2024 [facility] Work Phone: Comment on above: Expected: 06/01/2024, Expires: 5 Start: 04-02-2024 Covid-19 Vaccine () Covid-19 Vaccine () [facility] Start: 04-02-2024 Covid-19 Vaccine () Covid-19 Vaccine () [facility] Start: 04-02-2024 Influenza vaccination Influenza Vaccine (#1) [facility] Start: 11-08-2023 RSV Vaccine (1 - 1-dose 75+ series) RSV Vaccine (1 - 1-dose 75+ series) [facility] Start: 08-02-2023 Advance Directive Discussion Advance Directive Discussion [facility] Start: 08-02-2023 Behavioral Health Screening Behavioral Health Screening [facility] Start: 04-02-2023 Covid-19 Vaccine ( season) Covid-19 Vaccine () [facility] Start: 09-20-2022 Colonoscopy COLONOSCOPY [facility] Start: 09-20-2022 COLORECTAL CANCER SCREENING COLORECTAL CANCER SCREENING [facility] Start: 09-20-2022 Screening for malignant neoplasm of colon [facility] Start: 08-22-2022 Screening for malignant neoplasm of colon [facility] Start: 08-02-2022 ADVANCE DIRECTIVE DISCUSSION ADVANCE DIRECTIVE DISCUSSION [facility] Start: 08-02-2022 DEPRESSION ASSESSMENT DEPRESSION ASSESSMENT [facility] Start: 07-07-2022 End: 09-06-2022 Cobalamin (Vitamin B12) [Mass/volume] in Serum or Plasma [facility] Work Phone: Comment on above: Expected: 07/07/2022, Expires: Start: 07-07-2022 End: 09-06-2022 Ferritin [Mass/volume] in Serum or Plasma [facility] Work Phone: Comment on above: Expected: 07/07/2022, Expires: 3 Start: 07-07-2022 End: 09-06-2022 Folate [Mass/volume] in Serum or Plasma [facility] Work Phone: Comment on above: Expected: 07/07/2022, Expires: 3 Start: 07-07-2022 End: 09-06-2022 Iron and Iron binding capacity panel - Serum or Plasma [facility] Work Phone: Comment on above: Expected: 07/07/2022, Expires: 3 Start: 09-22-2021 COVID-19 VACCINE (4 - Booster for Pfizer series) COVID-19 VACCINE (4 - Booster for Pfizer series) [facility] Start: 08-02-2021 ADVANCE DIRECTIVE DISCUSSION ADVANCE DIRECTIVE DISCUSSION [facility] Start: 08-02-2021 DEPRESSION ASSESSMENT DEPRESSION ASSESSMENT [facility] Start: 2013 BONE DENSITY BONE DENSITY [facility] Start: 2013 Screening for osteoporosis Bone Density Screening [facility] Start: 10-31-2013 Medicare Annual Wellness Visit Medicare Annual Wellness Visit [facility] Start: 05-28-2013 Shingrix Vaccine (2 of 3) Shingrix Vaccine (2 of 3) [facility] Start: 2008 RSV Vaccine (1 - 1-dose 60+ series) RSV Vaccine (1 - 1-dose 60+ series) [facility] Start: 06-22-2004 Hepatitis B screening URINE ALBUMIN:CREATININE RATIO [facility] Start: 06-22-2004 Hepatitis B surface antibody level LDL CHOLESTEROL [facility] Start: 12-21-2003 Hemoglobin A1c measurement HbA1C [facility] Start: 12-21-2003 Hemoglobin A1c/Hemoglobin.total in Blood HBA1C [facility] Start: 1998 SHINGRIX VACCINE (1 of 2) SHINGRIX VACCINE (1 of 2) [facility] Start: 1993 COLOGUARD (FIT-DNA) COLOGUARD (FIT-DNA) [facility] Start: [address] COLONOGRAPHY [facility] Start: 1993 FECAL OCCULT BLOOD FECAL OCCULT BLOOD [facility] Start: 1993 Screening for malignant neoplasm of colon [facility] Start: 1993 SIGMOIDOSCOPY SIGMOIDOSCOPY [facility] Start: 1988 Mammography MAMMOGRAM [facility] Start: 11-08-1967 Urine microalbumin profile [facility] Start: 1966 ANNUAL PCP TEAM CHRONIC DISEASE VISIT ANNUAL PCP TEAM CHRONIC DISEASE VISIT [facility] Start: 1966 Anxiety Screening Anxiety Screening [facility] Start: 1966 Depression Screening Depression Screening [facility] Start: 1966 HEPATITIS C SCREENING HEPATITIS C SCREENING [facility] Start: 1966 Hepatitis C screening Hepatitis C Screening [facility] Start: 1958 3 comp foot exam completed DIABETIC FOOT EXAM [facility] Start: 1958 Diabetic foot examination Diabetic Foot Exam [facility] Start: 1958 Glaucoma screening Dilated Retinal Exam [facility] Start: 1958 Hepatitis C antibody, confirmatory test DILATED RETINAL EXAM [facility] Start: 1954 PNEUMOCOCCAL: 65+ (1 - PCV) PNEUMOCOCCAL: 65+ (1 - PCV) [facility] End: 06-21-2025 CT Cervical spine WO contrast CT CERVICAL SPINE WO IVCON Radiology Routine Spinal stenosis of cervical region 1 Occurrences starting 05/22/2024 until 06/21/[address] [facility] Comment on above: 1 Occurrences starting 05/22/2024 until 06/21/2025 CT Cervical spine WO contrast CT CERVICAL SPINE WO IVCON Radiology Routine Spinal stenosis of cervical region 06/08/2024 10:14 AM EST [facility] [employer] Work Phone: End: 06-21-2025 DXA Skeletal system.axial Views for bone density DXA-AXIAL SKELETON Radiology Routine Cervical stenosis of spine Other specified disorders of bone density and structure, other site 1 Occurrences starting 05/22/2024 until 06/21/[address] [facility] Comment on above: 1 Occurrences starting 05/22/2024 until 06/21/2025 End: 07-07-2025 ECG COMPLETE ECG COMPLETE ECG Routine Spinal stenosis of cervical region 1 Occurrences starting 07/07/2024 until 07/07/[address] [facility] Comment on above: 1 Occurrences starting 07/07/2024 until 07/07/2025 End: 01-17-2026 EMG(NEURO/NI) EMG(NEURO/NI) EMG Routine S/P cervical spinal fusion 1 Occurrences starting 01/17/2025 until 01/17/2026 [facility] Work Phone: Comment on above: 1 Occurrences starting 01/17/2025 until 01/17/2026 H&P for surgery H&P FOR SURGERY Procedures Routine Spinal stenosis of cervical region Ordered: 07/07/2024 [facility] Work Phone: Comment on above: Ordered: 07/07/2024 End: 03-10-2026 MR Cervical spine WO contrast MRI CERVICAL SPINE WO IVCON Radiology Routine S/P cervical spinal fusion 1 Occurrences starting 02/08/2025 until 03/10/2026 [facility] Work Phone: Comment on above: 1 Occurrences starting 02/08/2025 until 03/10/2026 End: 02-14-2025 MR Cervical spine WO contrast [facility] Work Phone: Comment on above: 1 Occurrences starting 02/14/2025 until 02/14/2025 Patient referral [facility] Work Phone: End: 06-21-2025 XR CERV OTHER 4V AP/LAT/FLX/EXT XR CERV OTHER 4V AP/LAT/FLX/EXT Radiology Routine Neck pain 1 Occurrences starting 05/22/2024 until 06/21/2025 [facility] Work Phone: Comment on above: 1 Occurrences starting 05/22/2024 until 06/21/2025 XR CERV OTHER 4V AP/LAT/FLX/EXT XR CERV OTHER 4V AP/LAT/FLX/EXT Radiology Routine Neck pain 05/22/2024 11:30 AM EDT [facility] End: 09-30-2025 XR CERV OTHER 4V AP/LAT/FLX/EXT XR CERV OTHER 4V AP/LAT/FLX/EXT Radiology Routine S/P cervical spinal fusion 1 Occurrences starting 08/31/2024 until 09/30/2025 [facility] Work Phone: Comment on above: 1 Occurrences starting 08/31/2024 until 09/30/2025 End: 11-11-2025 XR CERV OTHER 4V AP/LAT/FLX/EXT XR CERV OTHER 4V AP/LAT/FLX/EXT Radiology Routine S/P cervical spinal fusion 1 Occurrences starting 10/12/2024 until 11/11/2025 [facility] Work Phone: Comment on above: 1 Occurrences starting 10/12/2024 until 11/11/2025 XR CERV OTHER 4V AP/LAT/FLX/EXT XR CERV OTHER 4V AP/LAT/FLX/EXT Radiology Routine S/P cervical spinal fusion 10/12/2024 3:28 PM EDT [facility] Work Phone: XR CERV OTHER 4V AP/LAT/FLX/EXT XR CERV OTHER 4V AP/LAT/FLX/EXT Radiology Routine S/P cervical spinal fusion 01/15/2025 12:58 PM EDT [facility] Work Phone: End: 02-16-2026 XR CERV OTHER 4V AP/LAT/FLX/EXT XR CERV OTHER 4V AP/LAT/FLX/EXT Radiology Routine S/P cervical spinal fusion 1 Occurrences starting 01/17/2025 until 02/16/[address] [facility] Comment on above: 1 Occurrences starting 01/17/2025 until 02/16/2026 End: 03-17-2026 XR CERV OTHER 4V AP/LAT/FLX/EXT XR CERV OTHER 4V AP/LAT/FLX/EXT Radiology Routine S/P cervical spinal fusion 1 Occurrences starting 02/15/2025 until 03/17/2026 [facility] Work Phone: Comment on above: 1 Occurrences starting 02/15/2025 until 03/17/2026 End: 08-26-2025 XR Cervical spine AP and Lateral XR CERV GENERAL 2V AP/LAT Radiology Routine S/P cervical spinal fusion 1 Occurrences starting 07/27/2024 until 08/26/2025 [facility] Work Phone: Comment on above: 1 Occurrences starting 07/27/2024 until 08/26/2025 End: 09-02-2025 XR Cervical spine AP and Lateral XR CERV GENERAL 2V AP/LAT Radiology Routine S/P cervical spinal fusion 1 Occurrences starting 08/03/2024 until 09/02/[address] [facility] Comment on above: 1 Occurrences starting 08/03/2024 until 09/02/2025 XR Cervical spine AP and Lateral XR CERV GENERAL 2V AP/LAT Radiology Routine S/P cervical spinal fusion 08/03/2024 1:22 PM EST [facility] XR Cervical spine AP and Lateral XR CERV GENERAL 2V AP/LAT Radiology Routine S/P cervical spinal fusion 08/31/2024 1:50 PM EST [facility] Work Phone: End: 08-06-2025 XR Chest PA and Lateral XR CHEST 2V FRONTAL/LAT Radiology Routine Spinal stenosis of cervical region 1 Occurrences starting 07/07/2024 until 08/06/[address] [facility] Comment on above: 1 Occurrences starting 07/07/2024 until 08/06/2025 End: 07-07-2024 XR Chest PA and Lateral [facility] Work Phone: Comment on above: 1 Occurrences starting 07/07/2024 until 07/07/2024 XR Wrist - left PA a nd Lateral and Oblique XR WRIST GENERAL 3V PA/LAT/OBL LEFT Radiology Routine Bilateral carpal tunnel syndrome Ordered: 02/23/2025 [facility] Work Phone: Comment on above: Ordered: 02/23/2025 XR Wrist - right PA and Lateral and Oblique XR WRIST GENERAL 3V PA/LAT/OBL RIGHT Radiology Routine Bilateral carpal tunnel syndrome Ordered: 02/23/[address] [facility] Comment on above: Ordered: 02/23/2025 [facility] Immunizations Immunization Date Immunization Notes Care Provider [facility] 06-02-2024 influenza, high dose seasonal, preservative-free; Translations: [Fluad PF Prefilled Syringe ] BRUNO LARES MD [facility] 06-02-2024 influenza virus vacc ine, unspecified formulation Emg 850) [facility] 05-19-2023 influenza, high dose seasonal, preservative-free; Translations: [Fluad Quadrivalent PF ] TERRIE GOLDSTEIN APRN-DRYING MACHINE RECEIVER [facility] Comment on above: Early/Late Reason: E rolly/Late Reason: Other: 05-19-2023 influenza virus vacc ine, unspecified formulation Bruno Lares MD Work Phone: [facility] 08-07-2022 COVID-19, mRNA, LNP- S, bivalent booster, PF, 30 mcg/0.3 mL dose; Translations: [Pfizer-BioNTech COVID-19 (12y+) Bivalent Booster Vaccine PF] TERRIE GOLDSTEIN IMPORTER EXPORTER-DRYING MACHINE RECEIVER [facility] 08-07-2022 SARSCoV2 mRNA([id number]+)biv al vac; Translations: [Pfizer-BioNTech COVID-19 (12y+) Bivalent Booster Vaccine PF] TERRIE GOLDSTEIN IMPORTER EXPORTER-DRYING MACHINE RECEIVER [facility] 04-10-2022 influenza, injectabl e, quadrivalent, contains preservative TERRIE GOLDSTEIN IMPORTER EXPORTER-DRYING MACHINE RECEIVER [facility] 07-28-2021 influenza virus vacc ine, unspecified formulation [facility] IMPORTER EXPORTER-DRYING MACHINE RECEIVER [facility] 07-28-2021 SARS-CoV-2 mRNA (tozinameran) vaccine [facility] IMPORTER EXPORTER-DRYING MACHINE RECEIVER [facility] 11-27-2020 SARS-CoV-2 mRNA (tozinameran) vaccine DR ELIAS WELDON DO [facility] Comment on above: Result Comment: 2020: [id number] 11-06-2020 SARS-CoV-2 mRNA (tozinameran) vaccine DR ELIAS WELDON DO [facility] Comment on above: Result Comment: 2020: [id number] 04-24-2020 influenza, injectabl e, quadrivalent, preservative free; Translations: [Fluarix PF Quadrivalent ] DR ELIAS WELDON DO [facility] 05-29-2019 influenza, injectabl e, quadrivalent, preservative free; Translations: [Fluarix PF Quadrivalent ] DR ELIAS WELDON DO [facility] 05-17-2018 influenza virus vacc ine, unspecified formulation DR ELIAS WELDON DO [facility] 05-05-2017 influenza virus vacc ine, unspecified formulation DR ELIAS WELDON DO [facility] 05-02-2017 influenza, injectabl e, quadrivalent, preservative free Dr. Bruce Mcclain DO Work Phone: [facility] 03-20-2016 influenza virus vacc ine, unspecified formulation DR ELIAS WELDON DO [facility] 06-20-2015 influenza virus vacc ine, unspecified formulation DR ELIAS WELDON DO [facility] 03-22-2015 pneumococcal conjuga te vaccine, [address] EILAS WELDON DO [facility] 02-09-2014 pneumococcal polysaccharide vaccine, [address] ELIAS WELDON DO [facility] 04-20-2013 influenza virus vacc ine, unspecified formulation DR ELIAS WELDON DO [facility] 04-02-2013 zoster vaccine, live DR ELIAS WELDON DO [facility] Payers Date Payer Category Payer Self-pay [id number] 2023 Medicare [id number] 2013 Medicare [id number] 2013 Private Health Insurance [id number] 2013 Medicare [id number] 2013 Private Health Insurance [id number] 1948 Unknown [id number] 2.16.8 40.1.902285.3.579.2. 1948 Unknown [id number] 2.16.8 40.1.969464.3.579.2. 1948 Unknown [id number] 2.16.8 40.1.348314.3.579.2. 1948 Unknown [id number] 2.16.8 40.1.198595.3.579.2. 1948 Unknown [id number] 2.16.8 40.1.092660.3.579.2. 1948 Unknown [id number] 2.16.8 40.1.070476.3.579.2. 1948 Unknown [id number] 2.16.8 40.1.377314.3.579.2. 1948 Unknown [id number] 2.16.8 40.1.658479.3.579.2. 1948 Unknown [id number] 2.16.8 40.1.120444.3.579.2.627 1948 Unknown [id number] 2.16.8 40.1.436330.3.579.2.627 1948 Unknown [id number] 2.16.8 40.1.369294.3.579.2.627 1948 Unknown [id number] 2.16.8 40.1.051431.3.579.2.62 1948 Unknown [id number] 2.16.8 40.1.965733.3.579.2.62 1948 Unknown [id number] 2.16.8 40.1.437028.3.579.2.627 1948 Unknown [id number] 2.16. 840.1.140667.3.579.2. 1948 Unknown [id number] 2.16.8 40.1.426840.3.579.2.627 1948 Unknown [id number] 2.16.8 40.1.806776.3.579.2.62 1948 Unknown [id number] 2.16.8 40.1.583301.3.579.2.627 1948 Unknown [id number] 2.16.8 40.1.018827.3.579.2.627 Unknown [id number] 2.16.8 40.1.898072.3.579.2.462 Unknown [id number] 2.16.8 40.1.882752.3.579.2.462 Unknown [id number] 2.16.8 40.1.770922.3.579.2.462 Unknown [id number] 2.16.8 40.1.051442.3.579.2.462 Unknown [id number] 2.16.8 40.1.343360.3.579.2.462 Unknown [id number] 2.16.8 40.1.965383.3.579.2.462 Unknown [id number] 2.16.8 40.1.731603.3.579.2.462 Unknown [id number] 2.16.8 40.1.994220.3.579.2.462 Unknown [id number] 2.16.8 40.1.957779.3.579.2.462 Unknown [id number] 2.16.8 40.1.219084.3.579.2.462 Unknown [id number] 2.16.8 40.1.867576.3.579.2.462 Unknown [id number] 2.16.8 40.1.803012.3.579.2.462 Unknown [id number] 2.16.8 40.1.860665.3.579.2.462 Unknown [id number] 2.16.8 40.1.842090.3.579.2.462 Unknown [id number] 2.16.8 40.1.388352.3.579.2.462 Unknown [id number] 2.16.8 40.1.544424.3.579.2.462 Social History Date Type Detail Facility Start: 08-02-1975 End: 08-02-1991 Smoker (finding) [facility] Comment on above: no tobacco smoke exp osure Start: 1950 Sex Assigned At Female A [facility] Start: 09-06-2017 End: 09-16-2022 Tobacco smoking status VTIS Ex-smoker [facility] Comment on above: no tobacco smoke exp osure Start: 08-02-1975 End: 08-02-1991 History of tobacco use Cigarette Smoker [facility] Start: 09-06-2017 End: 07-06-2023 Cigarettes smoked current (pack per day) - Reported [address] [facility] Work Phone: Start: 09-06-2017 End: 03-01-2025 Tobacco use and exposure Smokeless tobacco non-user [facility] Start: 07-07-2022 End: 04-09-2025 Alcohol intake Current drinker of alcohol (finding) [facility] Start: 09-21-2019 History SDOH Financial [address] [facility] Start: 09-21-2019 History SDOH Food Worry [address] [facility] Start: 09-21-2019 History SDOH Transpo rt Med [address] [facility] Start: 08-22-2021 Alcohol Comment wine cooler tw ice weekly [facility] Start: 07-06-2023 End: 07-24-2024 Tobacco use panel [facility] Work Phone: Start: 07-03-2012 How hard is it for y ou to pay for the very basics like food, housing, medical care, and heating Not hard at all [facility] Work Phone: (I/We) worried maria del rosario er (my/our) food would run out before (I/we) got money to buy more. Never true [facility] Start: 09-02-2019 Gender identity Identifies as female gender (finding) [facility] Start: 09-02-2019 Sexual orientation Heterosexual (clarissa dominguez) [facility] Start: 07-05-2024 Alcohol Comment wine every night [facility] Has the [employer] company threatened to shut off services in your home in past 12Mo No [facility] Sexual Orientation Joie H nury [facility] Start: 09-27-2019 End: 11-02-2024 Sex Female (finding) [facility] Start: 10-12-2024 Alcoholic beverage intake Ex-drinker (finding) [facility] Start: 01-17-2025 Alcohol Comment occ [facility] History of tobacco use Passive smoker [facility] Start: 03-01-2025 Alcohol Comment occasionally [facility] NEGATED: Highlighted row Not [facility] Medical Equipment Procedure Code Equipment Code Equipment Origin al Text Equipment Identifier Dates Blood Glucose Te st Strips Start: 12-27-[address] Strips Start: 12-27-[address] Strips Start: 12-27-2020 See Instructions , One Touch Ultra Blue Test Strips Test BS BID. Diabetes E11.9, # 200 EA, 3 Refill(s), Pharmacy: [email or web address] 156, cm, 12/25/20 9:28:00 EDT, Height, 86.2, kg, 12/25/20 9:28:00 EDT, Dosing Weight Start: 12-27-2020 See Instructions , # 100 strip, Refill #: 3 Total Refills: 3, TESTING TWICE DAILY, [id number] Start: 02-21-2019 See Instructions , One Touch Ultra Blue Test Strips Test BS BID. Diabetes E11.9, # 200 EA, 3 Refill(s), Pharmacy: [email or web address] 156, cm, 12/25/20 9:28:00 EDT, Height, 86.2, kg, 12/25/20 9:28:00 EDT, Dosing Weight Start: 12-27-2020 See Instructions , # 100 strip, Refill #: 3 Total Refills: 3, TESTING TWICE DAILY, [id number] Start: 02-21-2019 [id number] Start: 07-11-2017 Comment on above: three times daily. See Instructions , One Touch Ultra Blue Test Strips Test BS BID. Diabetes E11.9, # 200 EA, 3 Refill(s), Pharmacy: [email or web address] 156, cm, 12/25/20 9:28:00 EDT, Height, 86.2, kg, 12/25/20 9:28:00 EDT, Dosing Weight Start: 12-27-2020 See Instructions , # 100 strip, Refill #: 3 Total Refills: 3, TESTING TWICE DAILY, [id number] Start: 02-21-2019 See Instructions , One Touch Ultra Blue Test Strips Test BS BID. Diabetes E11.9, # 200 EA, 3 Refill(s), Pharmacy: [email or web address] 156, cm, 12/25/20 9:28:00 EDT, Height, 86.2, kg, 12/25/20 9:28:00 EDT, Dosing Weight Start: 12-27-2020 See Instructions , # 100 strip, Refill #: 3 Total Refills: 3, TESTING TWICE DAILY, [id number] Start: 02-21-2019 See Instructions , One Touch Ultra Blue Test Strips Test BS BID. Diabetes E11.9, # 200 EA, 3 Refill(s), Pharmacy: [email or web address] 156, cm, 12/25/20 9:28:00 EDT, Height, 86.2, kg, 12/25/20 9:28:00 EDT, Dosing Weight Start: 12-27-2020 See Instructions , # 100 strip, Refill #: 3 Total Refills: 3, TESTING TWICE DAILY, [id number] Start: 02-21-2019 See Instructions , One Touch Ultra Blue Test Strips Test BS BID. Diabetes E11.9, # 200 EA, 3 Refill(s), [facility]acy: [facility] [address], cm, 12/25/20 9:28:00 EDT, Height, 86.2, kg, 12/25/20 9:28:00 EDT, Dosing Weight Start: 12-27-2020 See Instructions , # 100 strip, Refill #: 3 Total Refills: 3, TESTING TWICE DAILY, [id number] Start: 02-21-2019 See Instructions , One Touch Ultra Blue Test Strips Test BS BID. Diabetes E11.9, # 200 EA, 3 Refill(s), Pharmacy: [facility] [address] 156, cm, 12/25/20 9:28:00 EDT, Height, 86.2, kg, 12/25/20 9:28:00 EDT, Dosing Weight Start: 12-27-2020 See Instructions , # 100 strip, Refill #: 3 Total Refills: 3, TESTING TWICE DAILY, [id number] Start: 02-21-2019 See Instructions , One Touch Ultra Blue Test Strips Test BS BID. Diabetes E11.9, # 200 EA, 3 Refill(s), Pharmacy: [facility] [address] 156, cm, 12/25/20 9:28:00 EDT, Height, 86.2, kg, 12/25/20 9:28:00 EDT, Dosing Weight Start: 12-27-2020 See Instructions , # 100 strip, Refill #: 3 Total Refills: 3, TESTING TWICE DAILY, [id number] Start: 02-21-2019 See Instructions , One Touch Ultra Blue Test Strips Test BS BID. Diabetes E11.9, # 200 EA, 3 Refill(s), Pharmacy: [email or web address] 156, cm, 12/25/20 9:28:00 EDT, Height, 86.2, kg, 12/25/20 9:28:00 EDT, Dosing Weight Start: 12-27-2020 See Instructions , # 100 strip, Refill #: 3 Total Refills: 3, TESTING TWICE DAILY, [id number] Start: 02-21-2019 See Instructions , One Touch Ultra Blue Test Strips Test BS BID. Diabetes E11.9, # 200 EA, 3 Refill(s), [facility]acy: [facility] [address] 156, cm, 12/25/20 9:28:00 EDT, Height, 86.2, kg, 12/25/20 9:28:00 EDT, Dosing Weight Start: 12-27-2020 See Instructions , # 100 strip, Refill #: 3 Total Refills: 3, TESTING TWICE DAILY, [id number] Start: 02-21-2019 See Instructions , One Touch Ultra Blue Test Strips Test BS BID. Diabetes E11.9, # 200 EA, 3 Refill(s), Pharmacy: [facility] [address] 156, cm, 12/25/20 9:28:00 EDT, Height, 86.2, kg, 12/25/20 9:28:00 EDT, Dosing Weight Start: 12-27-2020 See Instructions , # 100 strip, Refill #: 3 Total Refills: 3, TESTING TWICE DAILY, [id number] Start: 02-21-2019 See Instructions , One Touch Ultra Blue Test Strips Test BS BID. Diabetes E11.9, # 200 EA, 3 Refill(s), [facility]acy: [facility] [address] 156, cm, 12/25/20 9:28:00 EDT, Height, 86.2, kg, 12/25/20 9:28:00 EDT, Dosing Weight Start: 12-27-2020 See Instructions , # 100 strip, Refill #: 3 Total Refills: 3, TESTING TWICE DAILY, [id number] Start: 02-21-2019 See Instructions , One Touch Ultra Blue Test Strips Test BS BID. Diabetes E11.9, # 200 EA, 3 Refill(s), Pharmacy: [email or web address] 156, cm, 12/25/20 9:28:00 EDT, Height, 86.2, kg, 12/25/20 9:28:00 EDT, Dosing Weight Start: 12-27-2020 See Instructions , # 100 strip, Refill #: 3 Total Refills: 3, TESTING TWICE DAILY, [id number] Start: 02-21-2019 See Instructions , One Touch Ultra Blue Test Strips Test BS BID. Diabetes E11.9, # 200 EA, 3 Refill(s), [facility]acy: [facility] [address] 156, cm, 12/25/20 9:28:00 EDT, Height, 86.2, kg, 12/25/20 9:28:00 EDT, Dosing Weight Start: 12-27-2020 See Instructions , # 100 strip, Refill #: 3 Total Refills: 3, TESTING TWICE DAILY, [id number] Start: 02-21-2019 Chips Bone Graft Cancellous Bone 4-10 Mm Container 15 Cc Volume - [id number] Start: 07-21-2024 Graft Bone Sub 5 cc Dbm Putty Inert Reverse Phase [employer] - [id number] Start: 07-21-2024 Graft Bone Sub 10cc Dbm Putty Inert Reverse Phase [employer] - [id number] Start: 07-21-2024 [place] Oct Spinal Occipital Screw O4mm X 12mm [id number] Start: 07-21-2024 [place] Contoured Ihsan, Size 3.5 X 65mm [id number] Start: 07-21-2024 Screw 4.5 X 24mm [place] Ml - [id number] Start: 07-21-2024 Comment on above: Description: Entered from worksheet for RN. Screw Bn 3.5mm 12mm [place] Spnl - [id number] Start: 07-21-[address] Spnl Oc t [place] Ns Lf - [id number] Start: 07-21-2024 ELIZA 3GRM HEMOSTAT ABS FDA Start: 09-13-2017 ELIZA 3GRM HEMOSTAT ABS FDA Start: 09-13-2017 ELIZA 3GRM HEMOSTAT ABS FDA Start: 09-13-2017 SUTURE,LIGA CLIP MED LT200 FDA Start: 09-13-2017 SUTURE,LIGA CLIP MED LT200 FDA Start: 09-13-2017 SUTURE,LIGA CLIP MED LT200 FDA Start: 09-13-2017 SUTURE,LIGA CLIP MED LT200 FDA Start: 09-13-2017 SUTURE,LIGA CLIP SM LT-100 FDA Start: 09-13-2017 ELIZA 3GRM HEMOSTAT ABS FDA Start: 09-13-2017 ELIZA 3GRM HEMOSTAT ABS FDA Start: 09-13-2017 ELIZA 3GRM HEMOSTAT ABS FDA Start: 09-13-2017 SUTURE,LIGA CLIP MED LT200 FDA Start: 09-13-2017 SUTURE,LIGA CLIP MED LT200 FDA Start: 09-13-2017 SUTURE,LIGA CLIP MED LT200 FDA Start: 09-13-2017 SUTURE,LIGA CLIP MED LT200 FDA Start: 09-13-2017 SUTURE,LIGA CLIP SM LT-100 FDA Start: 09-13-2017 ELIZA 3GRM HEMOSTAT ABS FDA Start: 09-13-2017 ELIZA 3GRM HEMOSTAT ABS FDA Start: 09-13-2017 ELIZA 3GRM HEMOSTAT ABS FDA Start: 09-13-2017 SUTURE,LIGA CLIP MED LT200 FDA Start: 09-13-2017 SUTURE,LIGA CLIP MED LT200 FDA Start: 09-13-2017 SUTURE,LIGA CLIP MED LT200 FDA Start: 09-13-2017 SUTURE,LIGA CLIP MED LT200 FDA Start: 09-13-2017 SUTURE,LIGA CLIP SM LT-100 FDA Start: 09-13-2017 Pen Needle, Diabetic (Bd Luz Elena 2nd Gen Pen Needle) 32 gauge x 5/32 needle Start: 11-20-2024 See Instructions , One Touch Ultra Blue Test Strips Test BS BID. Diabetes E11.9, # 200 EA, 3 Refill(s), Pharmacy: [id number] 156, cm, 12/25/20 9:28:00 EDT, Height, 86.2, kg, 12/25/20 9:28:00 EDT, Dosing Weight Start: 12-27-2020 See Instructions , # 100 strip, Refill #: 3 Total Refills: 3, TESTING TWICE DAILY, [id number] Start: 02-21-2019 ELIZA 3GRM HEMOSTAT ABS FDA Start: 09-13-2017 ELIZA 3GRM HEMOSTAT ABS FDA Start: 09-13-2017 ELIZA 3GRM HEMOSTAT ABS FDA Start: 09-13-2017 SUTURE,LIGA CLIP MED LT200 FDA Start: 09-13-2017 SUTURE,LIGA CLIP MED LT200 FDA Start: 09-13-2017 SUTURE,LIGA CLIP MED LT200 FDA Start: 09-13-2017 SUTURE,LIGA CLIP MED LT200 FDA Start: 09-13-2017 SUTURE,LIGA CLIP SM LT-100 FDA Start: 09-13-2017 Pen Needle, Diabetic (Bd Luz Elena 2nd Gen Pen Needle) 32 gauge x 5/32 needle Start: 11-20-2024 ELIZA 3GRM HEMOSTAT ABS FDA Start: 09-13-2017 ELIZA 3GRM HEMOSTAT ABS FDA Start: 09-13-2017 ELIZA 3GRM HEMOSTAT ABS FDA Start: 09-13-2017 SUTURE,LIGA CLIP MED LT200 FDA Start: 09-13-2017 SUTURE,LIGA CLIP MED LT200 FDA Start: 09-13-2017 SUTURE,LIGA CLIP MED LT200 FDA Start: 09-13-2017 SUTURE,LIGA CLIP MED LT200 FDA Start: 09-13-2017 SUTURE,LIGA CLIP SM LT-100 FDA Start: 09-13-2017 Pen Needle, Diabetic (Bd Luz Elena 2nd Gen Pen Needle) 32 gauge x 5/32 needle Start: 11-20-2024 See Instructions , One Touch Ultra Blue Test Strips Test BS BID. Diabetes E11.9, # 200 EA, 3 Refill(s), Pharmacy: [id number] 156, cm, 12/25/20 9:28:00 EDT, Height, 86.2, kg, 12/25/20 9:28:00 EDT, Dosing Weight Start: 12-27-2020 See Instructions , # 100 strip, Refill #: 3 Total Refills: 3, TESTING TWICE DAILY, [id number] Start: 02-21-2019 Goals Date Patient Goal Desired Activity /State Personal health goal Personal health goal Functional Status Date Assessment Result Facility 11-22-2024 Functional status Ambulates;Bath room [facility] Work Phone: 11-02-2024 Functional status Bathroom [facility] Work Phone: 07-28-2024 Are you deaf, or do you have serious difficulty hearing No 07/28/2024 1:06 PM Chloe Negron, EDMUND No [facility] 07-28-2024 Are you blind, or do you have serious difficulty seeing, even when wearing glasses No 07/28/2024 1:06 PM Chloe Negron, EDMUND No [facility] 07-28-2024 Do you have serious difficulty walking or climbing stairs No 07/28/2024 1:06 PM Chloe Negron, EDMUND No [facility] 07-28-2024 Do you have difficul ty dressing or bathing No 07/28/2024 1:06 PM Chloe Negron, EDMUND No [facility] 07-28-2024 Because of a physica l, mental, or emotional condition, do you have difficulty doing errands alone such as visiting a physician's office or shopping No 07/28/2024 1:06 PM Chloe Negron, EDMUND No [facility] 12-03-2023 Functional Status Home Living Ad ditional Information Objective: Cardiovascular Screen: BP:130/80 HR: 75 BPM O2 sat: 96% Observation: Mild excess thoracic kyphosis. MMT: see chart Special Tests: Hoffmans: + bilat, inverted supinator sign is inconclusive. Neural Tension: + for median nerve Special tests: phalens/reverse phalens: + Segmental Motion: not tested Sensation:Grossly intact light touch bilat UE's Reflexes: 1+ bilat biceps and triceps Hoffmans: Other:Note hoffmans reflex/sign was positive initially but retested at end or session and this response was less pronounced. [facility] 05-27-2023 Functional Status Standard Safet y ID band on, Allergy Band on, Call device within reach, Bed in low position, Wheels locked, Upper/Half-Length side-rails up, Bedside Cart Locked, Safety level maintained [facility] Mental Status Date Assessment Result Facility 11-22-2024 [facility] function [facility] Work Phone: 11-02-2024 Cognitive function Voice/Name [facility] Work Phone: 07-28-2024 Because of a physica l, mental, or emotional condition, do you have serious difficulty concentrating, remembering, or making decisions No 07/28/2024 1:06 PM Chloe Negron, EDMUND No [facility] 05-27-2023 Mental Status Oriented x 4 [facility] Clinical Notes 07-06-2021 to 06-05-2025 Note Date & Type Note Facility 06-05-2025 Note [facility] 05-31-2025 Note HNO ID: [id number] Author: DAVID KOLB, EDMUND Service: Nursing Author Type: Registered Nurse Type: Nursing Progress Note Filed: 05/31/2025 12:02 Note Text: Pt dressed independently. Pt d/cd from PACU in stable condition. [facility] 05-31-2025 Note HNO ID: [id number] Author: DAVID KOLB, EDMUND Service: Nursing Author Type: Registered Nurse Type: Nursing Progress Note Filed: 05/31/2025 11:47 Note Text: Spoke to Dr. Wallace about repeat blood sugar after insulin. Okay with d/c at this time. [facility] 05-31-2025 Note HNO ID: [id number] Author: DAVID KOLB RN Service: Nursing Author Type: Registered Nurse Type: Nursing Progress Note Filed: 05/31/2025 10:57 Note Text: Spoke to Dr. Wallace regarding elevated blood sugar and hypertension. New orders received. [facility] 05-31-2025 Note HNO ID: [id number] Author: CHRIS COMER, EDMUND Service: Nursing Author Type: Registered Nurse Type: Nursing Progress Note Filed: 05/31/2025 08:50 Note Text: Dr Jeffry Wallace notified re: FBS 278; pt has dexicom left upper arm; continue to observe [facility] 05-31-2025 Note HNO ID: [id number] Author: CHRIS COMER, RN Service: Nursing Author Type: Registered Nurse Type: Nursing Progress Note Filed: 05/31/2025 08:44 Note Text: Pt presents today with port wine stain / sampson right upper arm [facility] 05-24-2025 Note Exam Date Time Procedure Performing Provider Status 05/24/25 12:57 PM VL - ABIs (ankles only) - CV KATALINA TANNER MD; Auth (Verified) [facility]10-23-2025 Note* Exam Date Time Procedure Performing Provider Status 05/24/25 12:57 PM VL Venous US/Doppler Both Legs(for DVT) KATALINA TANNER MD; Auth (Verified) [facility]10-17-2025 NoteHNO ID: [id number] Author: ABDIRAHMAN MELENDEZ RT(R) Service: ? Author Type: Technologist Type: Progress Notes Filed: 05/18/2025 14:00 Note Text: Radiology Service Progress Note PATIENT NAME: Orion Sorensen DATE OF SERVICE: May 18, 2025 TIME: 1:59 PM PATIENT IDENTITY VERIFICATION COMPLETED USING TWO (2) IDENTIFIERS: Name and Date of confirmed by patient verbally. FALL SCREENING: Has the patient had 2 falls in the last year or 1 fall with injury or currently using an Ambulatory Assistive Device (Walker, Cane, Wheelchair, Crutches, etc.)? No PATIENT GENDER DATA: Assigned female at . status: : No status: NO. PATIENT RELEVANT IMPLANT DATA REVIEWED: Not Applicable PATIENT PRESENTS WITH AN IMPLANTABLE OR ATTACHED DEPARTMENT MGR: No RADIOLOGY DEPARTMENT: General X-ray: Exam(s) Completed: Spine X-Ray(s): Cervical AP / LAT / FLEX-EXT PERIPHERAL IV DATA: Not applicable SIGNED BY: RT Marion(R) May 18, 2025 1:[facility] History of Present illness Narrative* Chau Horowitz MD - 04/09/2025 3:32 PM EDT Hand Clinic Post-op Note Surgical Hx: 07/21/24 [facility]-PCDF 02/05/25 EMG-R severe CTS and mild CuTS, L mod CTS, no radic 02/14/25 MRI C spine-no obvious compression 03/20/25 R CTR, Path Amyloid+ Interval Hx: The patient is a 74-year-old female with bilateral carpal tunnel syndrome, presenting for postoperative follow-up after right carpal tunnel release and evaluation of left carpal tunnel symptoms for surgical planning. Right Carpal Tunnel Release: - 17 days post-op. - Orion Sorensen reports significant improvement in symptoms; able to sleep at night. - Mild numbness persists, but no pain or tingling. - Noted improvement in neck discomfort. - Denies use of pain medication. Left Hand Symptoms: - Orion noted worsening of symptoms, though not as severe as the right hand pre-surgery. - Able to sleep at night, but symptoms are beginning to interfere with daily activities. Exam: - Musculoskeletal: - Right Hand: - Healing carpal tunnel incision with sutures in place; no signs of infection. - Full fist formation; full sensation across all fingers. - Left Hand: - No obvious pain or atrophy. - Provocative tests: Positive Tinel's sign at the wrist; positive Phalen's test with numbness to the middle finger. Imaging: Assessment/Plan: (G56.02) Carpal tunnel syndrome, left (primary encounter diagnosis) (G56.01) Right carpal tunnel syndrome New and/or prior imaging was reviewed with the pt 1. Carpal tunnel syndrome, left (G56.02) - Worsening symptoms with positive Tinel's and flexion compression tests, numbness to middle finger. - Discussed risks of delaying surgery, including potential for severe compression as seen on right side. - Left carpal tunnel release scheduled for May 31; consent obtained. - Advised to avoid heavy weight bearing or lifting and to not submerge hand in water until fully healed. - Follow-up in 17 days post-op. 2. Right carpal tunnel syndrome (G56.01) - 17 days post-op with significant improvement in symptoms; minimal residual numbness, no pain, andfull sensation across all fingers. - Incision healing well with no signs of infection; sutures removed. - Advised to begin scar massage with cocoa butter or vitamin E in a couple of weeks to soften scar tissue. 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 - Referred to amyloid clinic for further evaluation due to potential systemic involvement. For the right side, she is healing excellent, Jhony back to activities, sutures out, we will referher to amyloid clinic For the left side as a separate issue, she does have moderate carpal tunnel based on the EMG, she started to have symptoms here and she wants to get this addressed for get as bad as her right side, Eneidaink this is very reasonable Consent signed [place] and [facility] Her postop is in 15 days Non-operative and operative interventions were thoroughly discussed with the patient. After explaining the risks and benefits of each route, the patient elected to proceed with operative intervention. I explained the specific risks, benefits, and goals of the procedure. These risks include, but arenot limited to: infection, wound healing problems, neurovascular injury, weakness, stiffness, scarring, Complex regional pain syndrome, and even loss of digit or limb. If hardware is used, there is arisk of hardware irritation or failure with possible need for revision. I stated the possibility ofno improvement, worsening of the pre-op symptoms, and the need for further surgery. No guarantees were stated or implied. All the patient's questions were answered to their satisfaction. The patient expressed understanding of the risks, benefits, and possible outcomes. We have made the decision to move forward with a major orthopaedic surgery and this represents the highest form of medical decision-making complexity. The patient's diagnosis of (G56.02) Carpal tunnel syndrome, left (primary encounter diagnosis) (G56.01) Right carpal tunnel syndrome represents a chronic pathology/diagnosis/injury that represents a current or possible direct threat to bodily function. Will continue to monitor patient for (G56.02) Carpal tunnel syndrome, left (primary encounter diagnosis) (G56.01) Right carpal tunnel syndrome, patient to schedule visit as per follow up discussed. Chau Horowitz MD Hand Surgery *The above reflects my independent exam and review. I saw and examined the patient myself personally. Parts of the HPI, ROS, exam, and impression/plan may have been copied from my previous clinical note and remain pertinent. Current changes have been made and documented today. Other parts or date were deleted if not relevant for today. Plan as outlined.* *This note was produced using speech recognition software and may contain errors related to that system including but not limited to punctuation, spelling, grammar, gender, and words or phrases that may be inappropriate.* *The patient consented to the use of ambient AI software for draft documentation of the visit consistent with [facility] s Notice of Privacy Practices.* documented in this [facility]25 NoteHNO ID: [id number] Author: MATT RUANO, EDMUND Service: Nursing Author Type: Registered Nurse Type: Nursing Progress Note Filed: 03/20/2025 10:20 Note Text: Other: pt ready for OR, call light in maico Carlos Alberto called to [facility]07-31-2025 Instructions* Patient Instructions* Luz Romero APRN.DRYING MACHINE RECEIVER - 03/01/2025 3:06 PM EDT Images from the original note were not included. [facility] PATIENT PREOPERATIVE INSTRUCTIONS Chau Horowitz, * has scheduled you for your procedure at this surgery center: [facility]: [phone] -- [address] [address]. Please read below carefully for your personalized instructions. Arrival Time for Surgery: - The Surgery Center or hospital where you are having surgery will call the afternoon before surgery (or Wednesday for Wednesday surgery) with a scheduled arrival time. - If you have not heard by 4 pm, please contact the surgery center above. Dietary Restrictions: - No solid food after midnight. - You may have 12 ounces of clear liquids (water, clear juices such as apple juice or gatorade, carbonated beverages, clear tea, black coffee, jello) until 2 hours before scheduled arrival at facility. - Do not drink any alcohol after midnight the night before your surgery. - no milk/creamer or other additives like honey - no pulp juices Medications: Unless instructed differently below, stay on all of your medications until your surgery. If you start any new medications after today's visit, please contact your surgeon. Pre-Surgery Med Instructions Medication Instructions insulin degludec (TRESIBA FLEXTOUCH) 100 unit/mL (3 mL) injection pen Insulin: Do not take the morning of surgery. Take 75% of your usual dose the night before surgery if possible. If not possible, take full dose the night before surgery. 75% of dose - 26 units cyclobenzaprine (FLEXERIL) 5 mg tablet Do not take the day of surgery LINZESS 145 mcg capsule Do not take the day of surgery MYRBETRIQ 25 mg Tb24 Do not take the day of surgery ferrous sulfate (FEOSOL) 325 mg (65 mg iron) tablet Do not take the day of surgery LASIX 20 mg tablet Do not take the day of surgery methocarbamol (ROBAXIN) 750 mg tablet Do not take the day of surgery aspirin, enteric coated (ASPIRIN, ENTERIC COATED) 81 mg EC tablet Hold 7 days before surgery. Last dose 03/11/25. omega-3 DHA-EPA (FISH OIL) 1,200 (144-216) mg capsule Do not take the day of surgery acetaminophen (TYLENOL) 325 mg cap If you normally take this medication in the morning, take the morning of surgery. magnesium oxide (MAG-OX) 400 mg (241.3 mg magnesium) tablet Do not take the day of surgery NOVOLOG FLEXPEN 100 unit/mL inpn Do not take the day of surgery alendronate (FOSAMAX) 70 mg tablet Do not take the day of surgery Omeprazole 40 mg capsule If you normally take this medication in the morning, take the morning of surgery. simvastatin (ZOCOR) 10 mg tablet If you normally take this medication in the morning, take the morning of surgery. valsartan (DIOVAN) 40 mg tablet If you normally take this medication in the morning, take the morning of surgery. If you are currently using a fadz-mvw-rvma injectable or oral medication for diabetes or weight loss such as Dulaglutide (Trulicity), Exenatide (Byetta, Bydureon), Liraglutide (Victoza, Saxenda), Semaglutide (Ozempic, Wegovy, Rybelsus), or Tirzepatide (Mounjaro), the medicine should be stopped at least 7 days before surgery. These medicines can cause food to remain in your stomach for a very longtime and increase the risks from surgery and anesthesia. Not stopping the medication for a long enough time may result in your surgery being rescheduled. If you start any new medications after today's visit, please contact the surgeon's office. Blood Thinning Medications: - Stop NSAIDS (Ibuprofen, Advil, Aleve, Motrin, Celebrex, Mobic, etc.) 7 days before surgery, as directed by your surgeon. - Stop Aspirin 7 days before surgery, as directed by your surgeon. - Stop herbal supplements 7 days before surgery. - You may take Tylenol (Acetaminophen) or any of your pain medications that do not contain aspirin or NSAIDS as needed. Important Reminders: - If you use CPAP/BIPAP, bring the machine with you to the surgery center. - If you are prescribed inhalers for breathing, continue using them. -Please be sure to brush your teeth and you can use mouth wash or rinse your mouth if dry. - Candy, mints, and tobacco products are NOT permitted the morning of surgery. - Hearing aids, dentures and glasses may be worn the morning of surgery. - If you have dentures or partials, please have a case to place them in or leave at home day of surgery. - NO jewelry, body piercings, makeup, hairpins or contacts are to be worn the day of surgery. If you develop symptoms such as a fever, cold, or flu, or have other changes to your health within TWO DAYS of scheduled surgery or the morning of surgery, please contact the surgery center above. Personal Belongings: -Please have photo ID and insurance cards. -If you do not have a copy of advance directives on file with us, please bring a copy with you on the day of surgery. - Leave ALL valuables and money at home or with family members. For Outpatient Procedures: - YOU MUST HAVE A RESPONSIBLE FLAGMAN TAKE YOU HOME. A INTEGRATED SPECIALIST OR CELL TUBER MACHINE CANNOT BE MADE A RESPONSIBLE FLAGMAN. - We recommend that a responsible person stays with you overnight to take care of you. - You cannot stay in a hotel alone after outpatient surgery. You will not be permitted to have yoursurgery, if you do not have someone to take care of you. Please be aware that emergency situations arise, which may delay or change your surgical time. If this happens, we will notify you as soon as possible and regret any inconvenience. If you already have an Advance Directive, please fax a copy to [phone] or email to for it to be added to your chart. If you do not have an Advance Directive, you can find the appropriate form and more information at [email or web address]. We recommend that youcomplete the Advance Directive form found on the website and bring it with you the day of your surgery. It can be witnessed and scanned into your chart that day. Luz Romero APRN.JAGRUTI documented in this encounterMer[facility] History and physical note * Luz Romero APRN.CNP - 03/01/2025 3:02 PM EDT Images from the original note were not included. [facility] HISTORY AND PHYSICAL EXAMINATION SERVICE DATE: 03/01/2025 SERVICE TIME: 3:41 PM PRIMARY CARE PHYSICIAN: Terrie Goldstein CNP Assessment Patient has the following medical conditions which may affect giovani-operative course: 1. 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) (M48.02) - History of cervical spine stenosis with recent neck surgery in 2023. - Limited neck range of motion on exam. 2. Primary hypertension (I10) Stable and compliant with medication. Follows with PCP. Last 3 Encounter BP Readings: Date: BP: 03/01/2025 128/68 01/17/2025 115/54 10/12/2024 113/73 3. Hypercholesterolemia (E78.00) - Compliant on statin therapy. Encouraged lifestyle modifications. Body mass index is 36.62 kg/m . 4. Coronary artery disease involving [place] coronary artery of [place] heart, unspecified whether angina present (I25.10) 5. Cardiac murmur (R01.1) - No recent chest pain, dizziness, or palpitations. - No cardiac stents or history of heart catheterization. - Denies any heart palpitations, edema, chest pain, shortness of breath, syncope, activity intolerance, or dizziness. - Reviewed stress echocardiogram from January 2024: normal systolic function, normal ejection fraction(50-60%), normal wall motion, no stress-induced myocardial ischemia. - Compliant on Aspirin 6. Gastroesophageal reflux disease, unspecified whether esophagitis present (K21.9) - Managed with omeprazole. 7. Diverticulitis of large intestine without perforation or abscess with bleeding (K57.33) - History of diverticulitis; affected portion removed during prior colon cancer surgery. 8. Stage 3 chronic kidney disease, unspecified whether stage 3a or 3b CKD (HCC) (N18.30) - Advised to avoid NSAIDs; Tylenol is acceptable for pain management. 9. Type 2 diabetes mellitus with hyperglycemia, with long-term current use of insulin (HCC) (E11.65) - Blood glucose levels running high (approximately 250 mg/dL). - Continue Novolog with meals and Tresiba at night. - Advised to take 75% of usual Tresiba dose prior to procedure; instructed to round down to nearesteven number if necessary. 10. Anemia of chronic disease (D63.8) - Chronic anemia managed with Ferosol. - Recent labs in August; ongoing fatigue. - Order repeat labs to assess current anemia status. 11. Obesity, Class II, BMI 35-39.9 (E66.812) - Body mass index is 36.62 kg/m . 12. History of breast cancer (Z85.3) - History of bilateral mastectomy with lymph node removal. 13. Anxiety with depression (F41.8) - History of anxiety and depression; recently discontinued duloxetine without medical supervision. - Discussed risks of abrupt discontinuation, including potential for suicidal ideation. - Recommended resuming antidepressant therapy or pursuing talk therapy; advised to consult with primary care provider. - Denies SI or HI. 14. History of colon cancer (Z85.038) - History of colon cancer with partial resection of rectum and intestines. ANESTHESIA FINDINGS: Intubation History: No history of difficult intubation. No abnormal airway history Significant Anesthesia Considerations: none Airway History: No history of difficult airway No abnormal airway history Bergman Activity Status Index: METS: Walk indoors, such as around the house (1.75 METs) Do light work around the house, such as dusting or washing dishes (2.70 METs) Take care of self; that is eating, dressing, bathing, using the toilet (2.75 METs) Walk a block or two on level ground (2.75 METs) Do moderate work around the house, such as vacuuming, sweeping floors, or carrying in groceries (3.50 METs) Climb a flight of stairs or walk up a hill (5.50 METs) DASI Score: 18.95 Patient denies any chest pain or undue shortness of breath with the above physical activity. Clinical Frailty Scale: 3. Well, with treated comorbid disease STOP-Bang Score: Has or is being treated for high blood pressure BMI greater than 35 kg/m^2 Patient over 50 years old Denies snoring loudly Denies feeling tired, fatigued, or sleepy during the daytime Has not been observed to stop breathing or choking/gasping during sleep Does not have a large neck Non-male patient STOP-Bang Score: 3 I - PHYSICAL EVALUATION AIRWAY Patient intubated: No. Tracheostomy tube not present Mallampati: III. TM distance: >3 FB. Neck ROM: limited flexion and extension. Mouth opening: adequate. Short neck: no. Thick neck: no Microretrognathia/Micronagthia/Recessed Chin: No DENTAL Dental findings: teeth intact. II - ANESTHESIA PLAN Anesthetic plan additional comments: *PACC/TCI - anesthesia choice. Beta Mj Monitoring Plan Post Procedure Analgesic Plan Prepared for Surgery: optimally prepared for surgery. CONSULTS: Patient does not require consults for optimization at this time Planned Anesthetic: anesthesia choice The Following Tests/Procedures Have Been Initiated: Orders Placed This Encounter cbcdiff Standing Status: Future Expected Date: 03/01/2025 Expiration Date: 05/31/2025 cmp Standing Status: Future Expected Date: 03/01/2025 Expiration Date: 05/31/[address] (CYMBALTA) 30 mg capsule Sig: Take 1 capsule by mouth once daily. insulin degludec (TRESIBA FLEXTOUCH) 100 unit/mL (3 mL) injection pen Sig: Inject 35 Units subcutaneously once daily. LORazepam (ATIVAN) 0.5 mg Sig: Take 0.5 mg by mouth. Insulin Thorpe, Disposable, 32 gauge x 5/32 Si each. REASON FOR VISIT: Orion Sorensen is a 74 year old female who is scheduled for Procedure(s): DECOMPRESSION NERVE MEDIAN CARPAL TUNNEL (Right) at the request of Dr. Chau Horowitz for consultation. My final recommendation will be communicated back to the requesting physician by way of shared medical record or letter. Subjective The patient has the following: COVID-19 Immunization Status This patient has no relevant Health Maintenance data. CHIEF COMPLAINT: pre op HPI: Orion Sorensen is a 74-year-old female with a history of CAD, CKD, DM, and bilateral carpal tunnel syndrome, presenting for evaluation of severe right carpal tunnel pain and tingling. Orion reports severe right carpal tunnel pain and tingling, rating the pain as 10/10. She is currently taking Flexeril for neck issues but notes it does not alleviate her carpal tunnel symptoms. REVIEW OF SYSTEMS: General: No weight loss, malaise or fevers. Neurological: Negative for: delirium, dementia, headaches, impaired sensorium, seizures, TIA and strokes. Respiratory: Negative for: asthma, bronchitis, COPD, current cough, bronchodilator used daily for the last 3 months, dyspnea, home oxygen, orthopnea, pneumonia within 6 weeks, tobacco use, URI < 2 weeks and obstructive sleep apnea. Cardiovascular: Denies any heart palpitations, edema, chest pain, shortness of breath, syncope, activity intolerance, or dizziness. Positive for: CAD, hyperlipidemia, hypertension and murmur/valvular heart disease Patient's last office visit The following tests and/or procedures were performed: cardiac stress test and echocardiogram. The following tests and/or procedures were not performed: cardiac catheterization and cardiac stents. Negative for: abdominal aortic aneurysm, AICD/PPM, angina, anticoagulation therapy, arrhythmia, atrial fibrillation, chest pain, CHF, congenital heart defect, DVT/PE, recent MT, PTCA, PVD, open heartsurgery and valve surgery. GI: Positive for: GERD Negative for: abdominal pain, GI bleed <30 days, hepatitis, liver disease, nausea, vomiting and ETOH >2 drinks/day. : + Stage 3 chronic kidney disease Negative for: on dialysis, dysuria, flank pain, frequent urination, hematuria, renal failure and urinary tract infection. Endocrine: Positive for: diabetes mellitus. Patient's diabetes mellitus is controlled by diet and insulin. Negative for: hyperthyroidism and hypothyroidism. Hematology: Positive for: anemia and iron deficiency anemia. Negative for: bruises/bleeds easily, factor V Leiden, hemophilia, thrombocytopenia, von Willebrand disease, transfusion of at least 4 units within 72 hours prior to surgery and chronic anti-coagulation/platelet meds. Oncology: + hx of colon and breast cancer Negative for: CA metastasis, chemo within 30 days, disseminated cancer and radiotherapy within 90 days. Psych: Positive for: anxiety and depression. Musculoskeletal: Negative for joint pain or swelling, back pain or muscle pain. Skin: Negative for lesions, rash and itching. Implanted Devices: No implanted devices. PAST MEDICAL HISTORY Diagnosis Date Arthritis Bilateral hand pain Bilateral wrist pain Breast cancer (HCC) 2018 right Chronic kidney disease, stage III (moderate) (HCC) Coronary artery disease DM type 2 (diabetes mellitus, type 2) (HCC) HTN (hypertension) pt denies Hyperlipidemia Snoring 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) PAST SURGICAL HISTORY Procedure Laterality Date ABDOMINAL SURGERY HX ANESTH, SECTION 1981 BREAST LUMPECTOMY HX Left 1979 BREAST SURGERY HX Bilateral 2017 mastectomy COLON SURGERY HX 2017 colorectal cancer COLONOSCOPY 08/22/2021 repeat in 1 year COLONOSCOPY - DIAGNOSTIC 09/20/2020 EGD 08/22/2021 EYE SURGERY HX Bilateral 2012 cataract F COLONOSCOPY WITH BIOPSY 08/01/2019 Dr. Marifer Foy LAPS COLECTOMY PRTL W/COLOPXTSTMY LW ANAST 09/20/2019 Dr. Tash HIGUERA MOBLJ SPLENIC FLXR PFRMD W/PRTL COLECTOMY 09/20/2019 Dr. Bianchi MASTECTOMY, SIMPLE, COMPLETE 09/13/2017 right breast mastectomy, right axillary sentinal lymph node [facility], left breast prophylactic breast mastectomy NECK SURGERY HX 07/21/2024 C4-T1 PCDF PAST SURGICAL HISTORY OF Left 1985 ankle repair PAST SURGICAL HISTORY OF Left 1978 Fibrosis excised from Breast PAST SURGICAL HISTORY OF 07/2021 Excision Basal Cell, Nose PROCEDURE RM-COLONSCOPY W/BX 2013 TONSILLECTOMY HX as a child FAMILY HISTORY Problem Relation Age of Onset Cancer Mother Thyroid cancer dx late 50's Skin Cancer Mother dx 70's Breast Cancer Mother 83 Bone cancer dx 84, possible mets vs primary Stroke Father 39 other (stroke) Father Breast Cancer Sister dx late 50's; dx contralateral breasta cancer in early 60's Diabetes Sister Diabetes Brother Hypertension Brother Psychiatry Brother Schizophrenia Breast Cancer Maternal Aunt dx 80's Breast Cancer Maternal Aunt dx late 70's Stroke Maternal Aunt 80 Cancer Maternal Uncle Leukemia dx 60's Cancer Paternal Uncle Cancer NOS dx 80's Diabetes Maternal Grandmother GI Maternal Grandmother 62 Pancreatitis vs pancreatic cancer Stroke Paternal Grandmother Heart disease Paternal Grandfather other (Hirschsprung's disease) Other Malig Hyperthermia No Family History Anesthesia Problems No Family History Social History Tobacco Use Smoking status: Former Current packs/day: 0.00 Average packs/day: 1 pack/day for 16.0 years (16.0 ttl pk-yrs) Types: Cigarettes Start date: 08/02/1975 Quit date: 08/02/1991 Years since quittin.6 Passive exposure: Past Smokeless tobacco: Never Vaping Use Vaping status: Never Used Substance Use Topics Alcohol use: Yes Comment: occasionally Drug use: No Prior to Admission medications as of 03/01/25 1514 Medication Sig Last Dose Taking insulin degludec (TRESIBA FLEXTOUCH) 100 unit/mL (3 mL) injection pen Inject 35 Units subcutaneously once daily. Yes Insulin Thorpe, Disposable, 32 gauge x 1 each. Yes cyclobenzaprine (FLEXERIL) 5 mg tablet Take 1 tablet by mouth two times a day as needed. Yes LINZESS 145 mcg capsule 145 MCG ORALLY EVERY MORNING Patient taking differently: Take 145 mcg by mouth every 3 days in the morning. Yes MYRBETRIQ 25 mg Tb24 Take 1 tablet by mouth once daily. Yes ferrous sulfate (FEOSOL) 325 mg (65 mg iron) tablet Take 325 mg by mouth. Yes LASIX 20 mg tablet 20 mg. Patient taking differently: Take 20 mg by mouth every other day. Yes methocarbamol (ROBAXIN) 750 mg tablet take one tablet by mouth three times daily for 14 days Patient taking differently: Take 750 mg by mouth three times a day as needed. Yes aspirin, enteric coated (ASPIRIN, ENTERIC COATED) 81 mg EC tablet Take 1 tablet by mouth once daily. Hold for 5 days post operatively Patient taking differently: Take 81 mg by mouth once daily. Yes omega-3 DHA-EPA (FISH OIL) 1,200 (144-216) mg capsule Take 1 capsule by mouth once daily. Yes acetaminophen (TYLENOL) 325 mg cap Take by mouth as needed for pain. Yes magnesium oxide (MAG-OX) 400 mg (241.3 mg magnesium) tablet Take 400 mg by mouth once daily. Yes NOVOLOG FLEXPEN 100 unit/mL inpn Inject 34 Units subcutaneously three times a day before meals. Yes alendronate (FOSAMAX) 70 mg tablet Take 1 tablet by mouth every other week. Yes ONETOUCH ULTRA TEST test strip three times daily. Yes Omeprazole 40 mg capsule Take 1 capsule by mouth once daily. Yes simvastatin (ZOCOR) 10 mg tablet Take 1 tablet by mouth once daily. Yes valsartan (DIOVAN) 40 mg tablet Take 1 tablet by mouth two times a day. Yes DULoxetine DR (CYMBALTA) 30 mg capsule Take 1 capsule by mouth once daily. Patient not taking: Reported on 03/01/2025 LORazepam (ATIVAN) 0.5 mg Take 0.5 mg by mouth. Patient not taking: Reported on 03/01/2025 ibuprofen (ADVIL ORAL) Take by mouth. Patient not taking: Reported on 03/01/2025 oxybutynin ER (DITROPAN XL) 10 mg 24 hr tablet Take 10 mg by mouth once daily. Patient not taking: Reported on 01/17/2025 LANTUS SOLOSTAR 100 unit/mL (3 mL) inpn Inject 30-35 Units subcutaneously daily at bedtime. Patient not taking: Reported on 03/01/2025 No medication comments found. ALLERGIES Allergen Reactions Celebrex [Celecoxib] Hives Femara [Letrozole] Other: See Comments Severe muscle & joint pain Ramipril Anaphylaxis Vioxx [Rofecoxib] Hives Ferumoxytol Other: See Comments Objective PHYSICAL EXAM: General: alert and oriented and healthy appearance. Pertinent negatives noted - not distressed. Skin: normal color, no rash or lesions. HEENT: EOM intact, pupils equal round and pupils reactive to light. Pertinent negatives noted - no carotid bruit. Cardiovascular: regular rate and rhythm, normal S1 and S2, no rub, murmurs, or gallop. Respiratory: normal breath sounds, no wheezes or crackles. No chest wall deformity or tenderness. Abdomen: bowel sounds present and soft. Pertinent negatives noted - not tender. Extremities: no deformity, no edema or tenderness, no joint swelling or clubbing. Neurological: normal cognition and motor skills. Gait normal. No weakness or sensory deficit. PAIN ASSESSMENT: Pain Pain Location: Wrist-Right Description: Throbbing, Shooting, Sharp Duration Units: Years Frequency: Intermittent VITALS: BP 128/68 Pulse 85 Temp 97.3 Resp 17 Ht 5' 1 (1.55m) Wt 193 lb 12.8 oz (87.9kg) SpO2 95% BMI 36.64 kg/(m^2). Diagnostic tests reviewed for today's visit: Lab Value Units Date High Low HB No results within date range. HCT No results within date range. WBC No results within date range. PLT No results within date range. NA No results within date range. K No results within date range. GLUC No results within date range. BUN No results within date range. CREAT No results within date range. PTSEC No results within date range. INR No results within date range. APTT No results within date range. ALT No results within date range. AST No results within date range. TBILI No results within date range. TSH No results within date range. Lab Value Units Date High Low HCGQT No results within date range. UHCG No results within date range. HCG, BODY* No results within date range. Lab Value Units Date High Low ABORHD No results within date range. ABSCREEN No results within date range. Hemoglobin A1C (%) Date Value 07/07/2024 7.8 06/22/2003 6.9 12/29/2002 6.6 No results found for this or any previous visit (from the past 8760 hours). No results found for this or any previous visit (from the past 58080 hours). Instructions Given to Patient: Instructions located in the after visit summary. Patient given verbal and written preop instructions and voices comprehension and compliance. Recording using [employer] software for draft documentation of the visit was discussed with the patient/authorized computer help desk representative; all questions welcomed and answered. Patient/authorized computer help desk representative agreed to proceed SIGNATURE: Luz Romero APRN.CNP PATIENT NAME: Orion Sorensen DATE: March 01, 2025 TIME: 3:02 PM PAGER/CONTACT #: [id number] History and physical note* Luz Romero APRN.CNP - 03/01/2025 3:02 PM EDT Images from the original note were not included. [facility] HISTORY AND PHYSICAL EXAMINATION SERVICE DATE: 03/01/2025 SERVICE TIME: 3:41 PM PRIMARY CARE PHYSICIAN: Terrie Goldstein CNP Assessment Patient has the following medical conditions which may affect giovani-operative course: 1. 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) (M48.02) - History of cervical spine stenosis with recent neck surgery in 2023. - Limited neck range of motion on exam. 2. Primary hypertension (I10) Stable and compliant with medication. Follows with PCP. Last 3 Encounter BP Readings: Date: BP: 03/01/2025 128/68 01/17/2025 115/54 10/12/2024 113/73 3. Hypercholesterolemia (E78.00) - Compliant on statin therapy. Encouraged lifestyle modifications. Body mass index is 36.62 kg/m . 4. Coronary artery disease involving [place] coronary artery of [place] heart, unspecified whether angina present (I25.10) 5. Cardiac murmur (R01.1) - No recent chest pain, dizziness, or palpitations. - No cardiac stents or history of heart catheterization. - Denies any heart palpitations, edema, chest pain, shortness of breath, syncope, activity intolerance, or dizziness. - Reviewed stress echocardiogram from January 2024: normal systolic function, normal ejection fraction(50-60%), normal wall motion, no stress-induced myocardial ischemia. - Compliant on Aspirin 6. Gastroesophageal reflux disease, unspecified whether esophagitis present (K21.9) - Managed with omeprazole. 7. Diverticulitis of large intestine without perforation or abscess with bleeding (K57.33) - History of diverticulitis; affected portion removed during prior colon cancer surgery. 8. Stage 3 chronic kidney disease, unspecified whether stage 3a or 3b CKD (HCC) (N18.30) - Advised to avoid NSAIDs; Tylenol is acceptable for pain management. 9. Type 2 diabetes mellitus with hyperglycemia, with long-term current use of insulin (HCC) (E11.65) - Blood glucose levels running high (approximately 250 mg/dL). - Continue Novolog with meals and Tresiba at night. - Advised to take 75% of usual Tresiba dose prior to procedure; instructed to round down to nearesteven number if necessary. 10. Anemia of chronic disease (D63.8) - Chronic anemia managed with Ferosol. - Recent labs in August; ongoing fatigue. - Order repeat labs to assess current anemia status. 11. Obesity, Class II, BMI 35-39.9 (E66.812) - Body mass index is 36.62 kg/m . 12. History of breast cancer (Z85.3) - History of bilateral mastectomy with lymph node removal. 13. Anxiety with depression (F41.8) - History of anxiety and depression; recently discontinued duloxetine without medical supervision. - Discussed risks of abrupt discontinuation, including potential for suicidal ideation. - Recommended resuming antidepressant therapy or pursuing talk therapy; advised to consult with primary care provider. - Denies SI or HI. 14. History of colon cancer (Z85.038) - History of colon cancer with partial resection of rectum and intestines. ANESTHESIA FINDINGS: Intubation History: No history of difficult intubation. No abnormal airway history Significant Anesthesia Considerations: none Airway History: No history of difficult airway No abnormal airway history [place] Activity Status Index: METS: Walk indoors, such as around the house (1.75 METs) Do light work around the house, such as dusting or washing dishes (2.70 METs) Take care of self; that is eating, dressing, bathing, using the toilet (2.75 METs) Walk a block or two on level ground (2.75 METs) Do moderate work around the house, such as vacuuming, sweeping floors, or carrying in groceries (3.50 METs) Climb a flight of stairs or walk up a hill (5.50 METs) DASI Score: 18.95 Patient denies any chest pain or undue shortness of breath with the above physical activity. Clinical Frailty Scale: 3. Well, with treated comorbid disease STOP-Bang Score: Has or is being treated for high blood pressure BMI greater than 35 kg/m^2 Patient over 50 years old Denies snoring loudly Denies feeling tired, fatigued, or sleepy during the daytime Has not been observed to stop breathing or choking/gasping during sleep Does not have a large neck Non-male patient STOP-Bang Score: 3 I - PHYSICAL EVALUATION AIRWAY Patient intubated: No. Tracheostomy tube not present Mallampati: III. TM distance: >3 FB. Neck ROM: limited flexion and extension. Mouth opening: adequate. Short neck: no. Thick neck: no Microretrognathia/Micronagthia/Recessed Chin: No DENTAL Dental findings: teeth intact. II - ANESTHESIA PLAN Anesthetic plan additional comments: *PACC/TCI - anesthesia choice. Beta Mj Monitoring Plan Post Procedure Analgesic Plan Prepared for Surgery: optimally prepared for surgery. CONSULTS: Patient does not require consults for optimization at this time Planned Anesthetic: anesthesia choice The Following Tests/Procedures Have Been Initiated: Orders Placed This Encounter cbcdiff Standing Status: Future Expected Date: 03/01/2025 Expiration Date: 05/31/2025 cmp Standing Status: Future Expected Date: 03/01/2025 Expiration Date: 05/31/[address] (CYMBALTA) 30 mg capsule Sig: Take 1 capsule by mouth once daily. insulin degludec (TRESIBA FLEXTOUCH) 100 unit/mL (3 mL) injection pen Sig: Inject 35 Units subcutaneously once daily. LORazepam (ATIVAN) 0.5 mg Sig: Take 0.5 mg by mouth. Insulin Thorpe, Disposable, 32 gauge x 5/32 Si each. REASON FOR VISIT: Orion Sorensen is a 74 year old female who is scheduled for Procedure(s): DECOMPRESSION NERVE MEDIAN CARPAL TUNNEL (Right) at the request of Dr. Chau Horowitz for consultation. My final recommendation will be communicated back to the requesting physician by way of shared medical record or letter. Subjective The patient has the following: COVID-19 Immunization Status This patient has no relevant Health Maintenance data. CHIEF COMPLAINT: pre op HPI: Orion Sorensen is a 74-year-old female with a history of CAD, CKD, DM, and bilateral carpal tunnel syndrome, presenting for evaluation of severe right carpal tunnel pain and tingling. Orion reports severe right carpal tunnel pain and tingling, rating the pain as 10/10. She is currently taking Flexeril for neck issues but notes it does not alleviate her carpal tunnel symptoms. REVIEW OF SYSTEMS: General: No weight loss, malaise or fevers. Neurological: Negative for: delirium, dementia, headaches, impaired sensorium, seizures, TIA and strokes. Respiratory: Negative for: asthma, bronchitis, COPD, current cough, bronchodilator used daily for the last 3 months, dyspnea, home oxygen, orthopnea, pneumonia within 6 weeks, tobacco use, URI < 2 weeks and obstructive sleep apnea. Cardiovascular: Denies any heart palpitations, edema, chest pain, shortness of breath, syncope, activity intolerance, or dizziness. Positive for: CAD, hyperlipidemia, hypertension and murmur/valvular heart disease Patient's last office visit The following tests and/or procedures were performed: cardiac stress test and echocardiogram. The following tests and/or procedures were not performed: cardiac catheterization and cardiac stents. Negative for: abdominal aortic aneurysm, AICD/PPM, angina, anticoagulation therapy, arrhythmia, atrial fibrillation, chest pain, CHF, congenital heart defect, DVT/PE, recent MT, PTCA, PVD, open heartsurgery and valve surgery. GI: Positive for: GERD Negative for: abdominal pain, GI bleed <30 days, hepatitis, liver disease, nausea, vomiting and ETOH >2 drinks/day. : + Stage 3 chronic kidney disease Negative for: on dialysis, dysuria, flank pain, frequent urination, hematuria, renal failure and urinary tract infection. Endocrine: Positive for: diabetes mellitus. Patient's diabetes mellitus is controlled by diet and insulin. Negative for: hyperthyroidism and hypothyroidism. Hematology: Positive for: anemia and iron deficiency anemia. Negative for: bruises/bleeds easily, factor V Leiden, hemophilia, thrombocytopenia, von Willebrand disease, transfusion of at least 4 units within 72 hours prior to surgery and chronic anti-coagulation/platelet meds. Oncology: + hx of colon and breast cancer Negative for: CA metastasis, chemo within 30 days, disseminated cancer and radiotherapy within 90 days. Psych: Positive for: anxiety and depression. Musculoskeletal: Negative for joint pain or swelling, back pain or muscle pain. Skin: Negative for lesions, rash and itching. Implanted Devices: No implanted devices. PAST MEDICAL HISTORY Diagnosis Date Arthritis Bilateral hand pain Bilateral wrist pain Breast cancer (HCC) 2018 right Chronic kidney disease, stage III (moderate) (HCC) Coronary artery disease DM type 2 (diabetes mellitus, type 2) (HCC) HTN (hypertension) pt denies Hyperlipidemia Snoring 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) PAST SURGICAL HISTORY Procedure Laterality Date ABDOMINAL SURGERY HX ANESTH, SECTION 1980 BREAST LUMPECTOMY HX Left 1979 BREAST SURGERY HX Bilateral 2017 mastectomy COLON SURGERY HX 2017 colorectal cancer COLONOSCOPY 08/22/2021 repeat in 1 year COLONOSCOPY - DIAGNOSTIC 09/20/2020 EGD 08/22/2021 EYE SURGERY HX Bilateral 2011 cataract F COLONOSCOPY WITH BIOPSY 08/01/2019 Dr. Marifer HIGUERA COLECTOMY PRTL W/COLOPXTSTMY LW ANAST 09/20/2019 Dr. Tash HIGUERA MOBLJ SPLENIC FLXR PFRMD W/PRTL COLECTOMY 09/20/2019 Dr. Bianchi MASTECTOMY, SIMPLE, COMPLETE 09/13/2017 right breast mastectomy, right axillary sentinal lymph node [facility], left breast prophylactic breast mastectomy NECK SURGERY HX 07/21/2024 C4-T1 PCDF PAST SURGICAL HISTORY OF Left 1985 ankle repair PAST SURGICAL HISTORY OF Left 1978 Fibrosis excised from Breast PAST SURGICAL HISTORY OF 07/2021 Excision Basal Cell, Nose PROCEDURE RM-COLONSCOPY W/BX 2013 TONSILLECTOMY HX as a child FAMILY HISTORY Problem Relation Age of Onset Cancer Mother Thyroid cancer dx late 50's Skin Cancer Mother dx 70's Breast Cancer Mother 83 Bone cancer dx 84, possible mets vs primary Stroke Father 39 other (stroke) Father Breast Cancer Sister dx late 50's; dx contralateral breasta cancer in early 60's Diabetes Sister Diabetes Brother Hypertension Brother Psychiatry Brother Schizophrenia Breast Cancer Maternal Aunt dx 80's Breast Cancer Maternal Aunt dx late 70's Stroke Maternal Aunt 80 Cancer Maternal Uncle Leukemia dx 60's Cancer Paternal Uncle Cancer NOS dx 80's Diabetes Maternal Grandmother GI Maternal Grandmother 62 Pancreatitis vs pancreatic cancer Stroke Paternal Grandmother Heart disease Paternal Grandfather other (Hirschsprung's disease) Other Malig Hyperthermia No Family History Anesthesia Problems No Family History Social History Tobacco Use Smoking status: Former Current packs/day: 0.00 Average packs/day: 1 pack/day for 16.0 years (16.0 ttl pk-yrs) Types: Cigarettes Start date: 08/02/1975 Quit date: 08/02/1991 Years since quittin.6 Passive exposure: Past Smokeless tobacco: Never Vaping Use Vaping status: Never Used Substance Use Topics Alcohol use: Yes Comment: occasionally Drug use: No Prior to Admission medications as of 03/01/25 1514 Medication Sig Last Dose Taking insulin degludec (TRESIBA FLEXTOUCH) 100 unit/mL (3 mL) injection pen Inject 35 Units subcutaneously once daily. Yes Insulin Thorpe, Disposable, 32 gauge x 5/32 1 each. Yes cyclobenzaprine (FLEXERIL) 5 mg tablet Take 1 tablet by mouth two times a day as needed. Yes LINZESS 145 mcg capsule 145 MCG ORALLY EVERY MORNING Patient taking differently: Take 145 mcg by mouth every 3 days in the morning. Yes MYRBETRIQ 25 mg Tb24 Take 1 tablet by mouth once daily. Yes ferrous sulfate (FEOSOL) 325 mg (65 mg iron) tablet Take 325 mg by mouth. Yes LASIX 20 mg tablet 20 mg. Patient taking differently: Take 20 mg by mouth every other day. Yes methocarbamol (ROBAXIN) 750 mg tablet take one tablet by mouth three times daily for 14 days Patient taking differently: Take 750 mg by mouth three times a day as needed. Yes aspirin, enteric coated (ASPIRIN, ENTERIC COATED) 81 mg EC tablet Take 1 tablet by mouth once daily. Hold for 5 days post operatively Patient taking differently: Take 81 mg by mouth once daily. Yes omega-3 DHA-EPA (FISH OIL) 1,200 (144-216) mg capsule Take 1 capsule by mouth once daily. Yes acetaminophen (TYLENOL) 325 mg cap Take by mouth as needed for pain. Yes magnesium oxide (MAG-OX) 400 mg (241.3 mg magnesium) tablet Take 400 mg by mouth once daily. Yes NOVOLOG FLEXPEN 100 unit/mL inpn Inject 34 Units subcutaneously three times a day before meals. Yes alendronate (FOSAMAX) 70 mg tablet Take 1 tablet by mouth every other week. Yes ONETOUCH ULTRA TEST test strip three times daily. Yes Omeprazole 40 mg capsule Take 1 capsule by mouth once daily. Yes simvastatin (ZOCOR) 10 mg tablet Take 1 tablet by mouth once daily. Yes valsartan (DIOVAN) 40 mg tablet Take 1 tablet by mouth two times a day. Yes DULoxetine DR (CYMBALTA) 30 mg capsule Take 1 capsule by mouth once daily. Patient not taking: Reported on 03/01/2025 LORazepam (ATIVAN) 0.5 mg Take 0.5 mg by mouth. Patient not taking: Reported on 03/01/2025 ibuprofen (ADVIL ORAL) Take by mouth. Patient not taking: Reported on 03/01/2025 oxybutynin ER (DITROPAN XL) 10 mg 24 hr tablet Take 10 mg by mouth once daily. Patient not taking: Reported on 01/17/2025 LANTUS SOLOSTAR 100 unit/mL (3 mL) inpn Inject 30-35 Units subcutaneously daily at bedtime. Patient not taking: Reported on 03/01/2025 No medication comments found. ALLERGIES Allergen Reactions Celebrex [Celecoxib] Hives Femara [Letrozole] Other: See Comments Severe muscle & joint pain Ramipril Anaphylaxis Vioxx [Rofecoxib] Hives Ferumoxytol Other: See Comments Objective PHYSICAL EXAM: General: alert and oriented and healthy appearance. Pertinent negatives noted - not distressed. Skin: normal color, no rash or lesions. HEENT: EOM intact, pupils equal round and pupils reactive to light. Pertinent negatives noted - no carotid bruit. Cardiovascular: regular rate and rhythm, normal S1 and S2, no rub, murmurs, or gallop. Respiratory: normal breath sounds, no wheezes or crackles. No chest wall deformity or tenderness. Abdomen: bowel sounds present and soft. Pertinent negatives noted - not tender. Extremities: no deformity, no edema or tenderness, no joint swelling or clubbing. Neurological: normal cognition and motor skills. Gait normal. No weakness or sensory deficit. PAIN ASSESSMENT: Pain Pain Location: Wrist-Right Description: Throbbing, Shooting, Sharp Duration Units: Years Frequency: Intermittent VITALS: BP 128/68 Pulse 85 Temp 97.3 Resp 17 Ht 5' 1 (1.55m) Wt 193 lb 12.8 oz (87.9kg) SpO2 95% BMI 36.64 kg/(m^2). Diagnostic tests reviewed for today's visit: Lab Value Units Date High Low HB No results within date range. HCT No results within date range. WBC No results within date range. PLT No results within date range. NA No results within date range. K No results within date range. GLUC No results within date range. BUN No results within date range. CREAT No results within date range. PTSEC No results within date range. INR No results within date range. APTT No results within date range. ALT No results within date range. AST No results within date range. TBILI No results within date range. TSH No results within date range. Lab Value Units Date High Low HCGQT No results within date range. UHCG No results within date range. HCG, BODY* No results within date range. Lab Value Units Date High Low ABORHD No results within date range. ABSCREEN No results within date range. Hemoglobin A1C (%) Date Value 07/07/2024 7.8 06/22/2003 6.9 12/29/2002 6.6 No results found for this or any previous visit (from the past 8760 hours). No results found for this or any previous visit (from the past 75647 hours). Instructions Given to Patient: Instructions located in the after visit summary. Patient given verbal and written preop instructions and voices comprehension and compliance. Recording using [employer] software for draft documentation of the visit was discussed with the patient/authorized computer help desk representative; all questions welcomed and answered. Patient/authorized computer help desk representative agreed to proceed SIGNATURE: Luz Romero APRN.CNP PATIENT NAME: Orion Sorensen DATE: March 01, 2025 TIME: 3:02 PM PAGER/CONTACT #: documented [facility] History of Present illness Narrative* Chau Horowitz MD - 02/23/2025 1:33 PM EDT HAND SURGERY NEW PATIENT HPI: 07/21/2024 recommend PCDF 02/05/2025 EMG right severe carpal tunnel syndrome and mild cubital tunnel syndrome, left moderate carpal tunnel syndrome, no radiculopathy 02/14/2025 MRI C-spine no obvious compression Patient has been experiencing bilateral hand numbness for the past 3+ years. Right hand worse than left. Endorses nocturnal symptoms and pain This is affecting her daily activities and quality of life. 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 No PMH: PAST MEDICAL HISTORY Diagnosis Date Arthritis Bilateral hand pain Bilateral wrist pain Breast cancer (HCC) 2018 right Chronic kidney disease, stage III (moderate) (HCC) Coronary artery disease DM type 2 (diabetes mellitus, type 2) ([facility]) HTN (hypertension) pt denies Hyperlipidemia Snoring 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) ALLERGIES Allergen Reactions Celebrex [Celecoxib] Hives Femara [Letrozole] Other: See Comments Severe muscle & joint pain Ramipril Anaphylaxis Vioxx [Rofecoxib] Hives Ferumoxytol Other: See Comments Social History Tobacco Use Smoking status: Former Current packs/day: 0.00 Average packs/day: 1 pack/day for 16.0 years (16.0 ttl pk-yrs) Types: Cigarettes Start date: 08/02/1975 Quit date: 08/02/1991 Years since quittin.5 Smokeless tobacco: Never Vaping Use Vaping status: Never Used Substance Use Topics Alcohol use: Yes Comment: occ Drug use: No Review of Systems: 12 point review of systems was performed and found to be non-contributory Exam: Right hand Skin is intact with no erythema or swelling. Sensation on the ulnar, and radial nerve distributions intact, sensation on the median nerve distribution decreased. AIN, PIN, ulnar motor are intact. Able to make a full fist. Negative thenar muscle atrophy Negative intrinsic muscle atrophy. Positive Tinel's, positive Phalen's, positive Yanira's. Negative ulnar compression test, mild Tinel's at the elbow, negative instability of ulnar nerve w motion at elbow Radial pulse 2+. Left hand Skin is intact with no erythema or swelling. Sensation on the ulnar, and radial nerve distributions intact, sensation on the median nerve distribution intact. AIN, PIN, ulnar motor are intact. Able to make a full fist. Negative thenar muscle atrophy Negative intrinsic muscle atrophy. Positive Tinel's, positive Phalen's, positive Yanira's. Negative ulnar compression test, negative Tinel's at the elbow, negative instability of ulnar nervew motion at elbow Radial pulse 2+. Imaging: Images taken today were personally reviewed and interpreted, these revealed 3 views of bilateral wrists demonstrating severe epwn-dy-dcth STT joint degenerative changes with cystic changes at the scaphoid and trapezium. Moderate thumb CMC DJD changes. Assessment/Plan: (G56.03) Bilateral carpal tunnel syndrome (primary encounter diagnosis) EMG results were discussed in detail with the patient today. Due to the severity of I highly advised to proceed with surgical treatment. She agreed. We will start with a carpal tunnel only as this gogo less invasive surgery than a cubital tunnel release. Patient agreed. Patient understands that themain goal of surgery is to alleviate any pain she may be experiencing and to prevent further damageto the nerve. The numbness may not fully resolve or may take several months to a year to improve. Patient was also evaluated by Dr Chau Horowitz After explaining the risks and benefits of each route, the patient elected to proceed w/ operative intervention. I explained the specific risks, benefits, and goals of the procedure. These risks include, but are not limited to: infection, wound healing problems, neurovascular injury, weakness, stiffness, scarring, Complex regional pain syndrome, and even loss of digit or limb. If hardware is used, there is a risk of hardware irritation or failure with possible need for revision. I stated the possibility of no improvement, worsening of the pre-op symptoms, and the need for further surgery. No guarantees were stated or implied. All the patient's questions were answered to their satisfaction. The patient expressed understanding of the risks, benefits, and possible outcomes. Patient has agreed to a right carpal tunnel release surgery. Surgery date: 03/20/2025 STELLA Rivera and local Ju Fabian PA-C Hand Surgery Attending Note I have personally performed a face to face assessment of the patient and have reviewed the providernote. I thoroughly reviewed the patient's chart prior to the visit, performed a substantive portionof the visit, and made the ultimate medical decision regarding the plan of care. My findings are asfollows: (G56.03) Bilateral carpal tunnel syndrome (primary encounter diagnosis) History as above. On exam she does have provocative findings for carpal tunnel syndrome, no specific findings for cubital tunnel syndrome I discussed the EMG results with the patient and it does seem like her radial digits are much more affected, I told her that we could do both the carpal tunnel and the cubital tunnel, but it seems that the carpal tunnel is affecting her much more and this would be a smaller recovery, she opted for just addressing the carpal tunnel first, she thinks that we could address the elbow at a later time if she notices continued numbness in the small finger and ring finger I discussed with the patient that they have severe carpal tunnel syndrome. Thus the goal of the surgery is to prevent this from getting worse. I explained that there has been permanent irreversible damage done to the nerve and I will not be able to restore all of that function by doing a decompression. My hope is that their symptoms will get better, but I cannot guarantee that there will be a sign ificant improvement from pre-op. The patient understood this and still wished to proceed with surgery. Consent signed [facility] [place] for postop Non-operative and operative interventions were thoroughly discussed with the patient. After explaining the risks and benefits of each route, the patient elected to proceed with operative intervention. I explained the specific risks, benefits, and goals of the procedure. These risks include, but arenot limited to: infection, wound healing problems, neurovascular injury, weakness, stiffness, scarring, Complex regional pain syndrome, and even loss of digit or limb. If hardware is used, there is arisk of hardware irritation or failure with possible need for revision. I stated the possibility ofno improvement, worsening of the pre-op symptoms, and the need for further surgery. No guarantees were stated or implied. All the patient's questions were answered to their satisfaction. The patient expressed understanding of the risks, benefits, and possible outcomes. We have made the decision to move forward with a major orthopaedic surgery today, and this represents the highest form of medical decision-making complexity. The patient's diagnosis of (G56.03) Bilateral carpal tunnel syndrome (primary encounter diagnosis) represents a chronic pathology/diagnosis/injury that represents a current or possible direct threat to bodily function. Will continue to monitor patient for (G56.03) Bilateral carpal tunnel syndrome (primary encounter diagnosis), patient to schedule visit as per follow up discussed. Chau Horowitz MD The above reflects my independent exam and review. I saw and examined the patient myself personally. Parts of the HPI, ROS, exam and impression/plan may have been copied from my personal previous clinical note and remain pertinent. Current changes have been made and documented today. Other parts ordate were deleted if not relevant for today. Plan as outlined. *This note was produced using speech recognition software and may contain errors related to that system including but not limited to punctuation, spelling, grammar, gender, and words or phrases that may be inappropriate. * Fidencio Finch LPN - 02/23/2025 1:19 PM EDT REVIEW OF SYSTEMS: GENERAL: Well developed, well nourished. No acute distress PAIN: Pain Bilateral hands and bilateral wrist CARDIOVASCULAR: Leg swelling Bilateral MSK: Positive for joint swelling SKIN: Lesions Yes and Itching Yes NEURO: Numbness/tingling of extremties ENDOCRINE: Positive for diabetic associated symptoms HEMATOLOGY: Excessive bleeding Rectal documented in this encounter[facility]25 [facility]07[facility]17-[facility] History of Present illness Narrative* Bruno Lares MD - 02/15/2025 11:30 AM EDT Images from the original note were not included. NEUROSURGERY TELEPHONE VISIT PROGRESS NOTE Bruno Lares MD This is a telephone encounter initiated for an established patient, parent or guardian not originating from a related Evaluation & Management service provided within the previous 7 days nor leading to an Evaluation & Management service or procedure within the next 24 hours or soonest available appointment. Date of visit: February 15, 2025 Time of Service: 1130 Patient Name: Ms.Ann Cheryl Sorensen Date of : 1950 Current Age: [age] year old Sex: female MRN/E# [id number] Last Office Visit: 01/17/2025 Orion Sorensen has consented to this telephone encounter. Persons Present: patient and daughter (adult) Chief Complaint/Reason: R > L hand pain and numbness Past Medical/Surgical History: Orion Sorensen is a 74 year old female who is for neurosurgical evaluation. The patient has a history of breast cancer, CAD, DM2, HTN, HLD. HPI: Ms. Sorensen presented to the office on 01/17/2025 when she was about 6 months after her posteriorcervical decompression and fusion for stenosis with myelopathy. She was doing well, with excellent improvement of her preoperative myelopathic symptoms. Over the last month or 2, she had been noticing some right hand numbness and tingling that was worse at night. It did not really extend proximal to her wrist. She had a positive Phalen's test on exam. She had similar symptoms in her left hand as well. I was suspicious that she had carpal tunnel syndrome, and ordered EMG studies of her bilateralupper extremities. From a spine standpoint, she is healing well. Her x-rays looked excellent. She was to follow up virtually once EMG was completed, prompting her visit today. Symptoms: numbness PREVIOUS CONSERVATIVE TREATMENTS: Physical therapy PREVIOUS SURGERY: SURGERY #1: C4-T1 PCDF on 07/21/2024 Pre-Surgical Symptoms: weakness PAST MEDICAL HISTORY Diagnosis Date Arthritis Breast cancer (HCC) 2018 right Chronic kidney disease, stage III (moderate) ([facility]) Coronary artery disease DM type 2 (diabetes mellitus, type 2) ([facility]) HTN (hypertension) pt denies Hyperlipidemia Snoring 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) PAST SURGICAL HISTORY Procedure Laterality Date ABDOMINAL SURGERY HX ANESTH, SECTION 1981 BREAST LUMPECTOMY HX Left 1979 BREAST SURGERY HX Bilateral 2017 mastectomy COLON SURGERY HX 2017 colorectal cancer COLONOSCOPY 08/22/2021 repeat in 1 year COLONOSCOPY - DIAGNOSTIC 09/20/2020 EGD 08/22/2021 EYE SURGERY HX Bilateral 2012 cataract F COLONOSCOPY WITH BIOPSY 08/01/2019 Dr. Marifer HIGUERA COLECTOMY PRTL W/COLOPXTSTMY LW ANAST 09/20/2019 Dr. Tash HIGUERA MOBLJ SPLENIC FLXR PFRMD W/PRTL COLECTOMY 09/20/2019 Dr. Bianchi MASTECTOMY, SIMPLE, COMPLETE 09/13/2017 right breast mastectomy, right axillary sentinal lymph node [facility], left breast prophylactic breast mastectomy NECK SURGERY HX 07/21/2024 C4-T1 PCDF PAST SURGICAL HISTORY OF Left 1985 ankle repair PAST SURGICAL HISTORY OF Left 1978 Fibrosis excised from Breast PAST SURGICAL HISTORY OF 07/2021 Excision Basal Cell, Nose PROCEDURE RM-COLONSCOPY W/BX 2014 TONSILLECTOMY HX as a child FAMILY HISTORY Problem Relation Age of Onset Cancer Mother Thyroid cancer dx late 50's Skin Cancer Mother dx 70's Breast Cancer Mother 83 Bone cancer dx 84, possible mets vs primary Stroke Father 39 other (stroke) Father Breast Cancer Sister dx late 50's; dx contralateral breasta cancer in early 60's Diabetes Sister Diabetes Brother Hypertension Brother Psychiatry Brother Schizophrenia Diabetes Maternal Grandmother GI Maternal Grandmother 62 Pancreatitis vs pancreatic cancer Stroke Paternal Grandmother Heart disease Paternal Grandfather Breast Cancer Maternal Aunt dx 80's Breast Cancer Maternal Aunt dx late 70's Stroke Maternal Aunt 80 Cancer Maternal Uncle Leukemia dx 60's Cancer Paternal Uncle Cancer NOS dx 80's other (Hirschsprung's disease) Other ALLERGIES Allergen Reactions Celebrex [Celecoxib] Hives Femara [Letrozole] Other: See Comments Severe muscle & joint pain Ramipril Anaphylaxis Vioxx [Rofecoxib] Hives Ferumoxytol Other: See Comments Current Outpatient Medications Medication Sig Dispense Refill LINZESS 145 mcg capsule 145 MCG ORALLY EVERY MORNING MYRBETRIQ 25 mg Tb24 Take 1 tablet by mouth once daily. ferrous sulfate (FEOSOL) 325 mg (65 mg iron) tablet Take 325 mg by mouth. LASIX 20 mg tablet 20 mg. methocarbamol (ROBAXIN) 750 mg tablet take one tablet by mouth three times daily for 14 days ibuprofen (ADVIL ORAL) Take by mouth. aspirin, enteric coated (ASPIRIN, ENTERIC COATED) 81 mg EC tablet Take 1 tablet by mouth once daily. Hold for 5 days post operatively omega-3 DHA-EPA (FISH OIL) 1,200 (144-216) mg capsule Take 1 capsule by mouth once daily. acetaminophen (TYLENOL) 325 mg cap Take by mouth as needed for pain. magnesium oxide (MAG-OX) 400 mg (241.3 mg magnesium) tablet Take 400 mg by mouth once daily. oxybutynin ER (DITROPAN XL) 10 mg 24 hr tablet Take 10 mg by mouth once daily. (Patient not taking:Reported on 01/17/2025) NOVOLOG FLEXPEN 100 unit/mL inpn Inject 25 Units subcutaneously three times daily. LANTUS SOLOSTAR 100 unit/mL (3 mL) inpn Inject 30-35 Units subcutaneously daily at bedtime. alendronate (FOSAMAX) 70 mg tablet Take 1 tablet by mouth every other week. ONETOUCH ULTRA TEST test strip three times daily. Omeprazole 40 mg capsule Take 1 capsule by mouth once daily. simvastatin (ZOCOR) 10 mg tablet Take 1 tablet by mouth once daily. valsartan (DIOVAN) 40 mg tablet Take 1 tablet by mouth two times a day. No current facility-administered medications for this visit. REVIEW OF SYSTEMS Review of Systems Data Reviewed: IMAGING STUDIES: EMG 02/05/2025 Assessment: Status post posterior cervical decompression and fusion for cervical myelopathy. Symptoms improved.Has right greater than left hand pain and numbness, worst at night. MRI of her cervical spine showsno residual compression. 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 This correlates well with her symptoms. I will place a r eferral to Dr. Horowitz for discussion of treatment. Plan: Referral to Dr. Horowitz Follow up with me in 3 months with 4v cervical XR Time Spent: 11-20 minutes Attribution: The following portions of the patient's history were reviewed, confirmed, and updated as necessary:allergies, current medications, past family history, past medical history, past social history, past surgical history, problem list, HPI, and ROS obtained by others. Some elements may be copied from a previous office note and have been reviewed/updated where appropriate. All portions reflect current medical decision making from today. The clinical and radiographic findings as well as the risks, benefits and alternatives of treatmenthave been reviewed in detail with the patient. Advised to call the office if symptoms worsen or new symptoms develop. Patient expressed understanding and is in agreement with plan. Bruno Lares MD [facility] Medical Decision Making: Problems: Moderate: 2+ stable chronic illnesses Data: Unique test result(s) reviewed: 2 Unique test(s) ordered: 1 Risk: Moderate: Moderate risk from testing/treatment Medical Decision Making Level: 4 - Moderate This note was partially generated using [employer] voice recognition system, and there may be some incorrect words, spellings, and punctuation that were not noted in checking the note before saving. documented in this encounterMer[facility]07-[facility]-2025 [facility]07-[facility] Telephone encounter Note* Telephone Encounter - Israel Kendall - 02/08/2025 8:31 AM EDT I left a vm with patient daughter of day time location of MRI cervical that will be closest to homebefore patient appt on 02/15 virtual with my ext to call if anything needs rescheduled [facility]07-10-2025 Miscellaneous Notes* Telephone Encounter - Israel Kendall - 02/08/2025 8:31 AM EDT I left a vm with patient daughter of day time location of MRI cervical that will be closest to homebefore patient appt on 02/15 virtual with my ext to call if anything needs rescheduled documented in this encounterMer[facility]07-[facility]-2025 NoteHNO ID: [id number] Author: PRINCESS MCDOWELL MD Service: ? Author Type: Physician Type: Progress Notes Filed: 02/05/2025 13:53 Note Text: UNIVERSAL PROTOCOL / SAFETY CHECKLIST Procedure to be Performed: EMG Sign In: A Moment of CARE was completed. Personnel directly involved with the procedure wore the appropriate PPE (Personal Protective Equipment). Patient/Surrogate Stated/Verified: Patient name, Date of , Relevant allergies, and The intended procedure Time Out Communication: Intended patient and procedure match the source documents. Correct side/site marked and visible. Sign Out: SIGN OUT (optional for EMERGENT procedures): Post-procedure follow-up management communicated and Plan of Care Visit completed when applicable. CELIA Dickinson [facility]07-07-2025 History of Present illness Narrative* Princess Mcdowell MD - 02/05/2025 1:02 PM EDT UNIVERSAL PROTOCOL / SAFETY CHECKLIST Procedure to be Performed: EMG Sign In: A Moment of CARE was completed. Personnel directly involved with the procedure wore the appropriate PPE (Personal Protective Equipment). Patient/Surrogate Stated/Verified: Patient name, Date of , Relevant allergies, and The intended procedure Time Out Communication: Intended patient and procedure match the source documents. Correct side/site marked and visible. Sign Out: SIGN OUT (optional for EMERGENT procedures): Post-procedure follow-up management communicated and Plan of Care Visit completed when applicable. CHANEL Dickinson.Armando Mcdowell MD documented in this encounterMer[facility]06-18-2025 History of Present illness Narrative* Bruno Lares MD - 01/17/2025 11:00 AM EDT Images from the original note were not included. NEUROSURGERY FOLLOW UP OFFICE NOTE Bruno Lares MD [facility] Date of visit: January 17, 2025 Patient Name: Ms.Ann Cheryl Sorensen Date of : 1950 Current Age: [age] year old Sex: female MRN/E# [id number] Last Office Visit: 10/12/2024 Chief Complaint: Patient presents with: Established Patient Past Medical/Surgical History: Orion Sorensen is a 74 year old female who is for neurosurgical evaluation. The patient has a history of breast cancer, CAD, DM2, HTN, HLD. HPI: She was last seen in the office on 10/12/2024 when she was doing well, with significant improvement in her myelopathic symptoms. She had regained the majority of her hand function and was very happy. Her incision was well-healed and her x-rays looked good. I explained that she may wean out of her collar over the next week and begin physical therapy. She was to follow up in 3 months time with repeat imaging to evaluate her progress, prompting her visit today. The patient presents to the office today with reports of her strength in her hands doing well but she has noticed some intermittent tingling into the right hand, primarily at night and she also reports trouble with the curling of her fingers in the left hand when she goes to make a fist. She notes some intermittent neck pain, but she also feels that maybe she overdid it with PT. She is here for evaluation and plan of care. Symptoms: numbness PREVIOUS CONSERVATIVE TREATMENTS: Physical therapy PREVIOUS SURGERY: SURGERY #1: C4-T1 PCDF on 07/21/2024 Pre-Surgical Symptoms: weakness PAIN EVALUATION 01/16/2025 1119 Pain Level: 3 Pain Location: Neck Description: Burning;Itching;Stabbing Frequency: Continuous PAST MEDICAL HISTORY Diagnosis Date Arthritis Breast cancer (HCC) 2018 right Chronic kidney disease, stage III (moderate) (HCC) Coronary artery disease DM type 2 (diabetes mellitus, type 2) (HCC) HTN (hypertension) pt denies Hyperlipidemia Snoring 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) PAST SURGICAL HISTORY Procedure Laterality Date ABDOMINAL SURGERY HX ANESTH, SECTION 1980 BREAST LUMPECTOMY HX Left 1979 BREAST SURGERY HX Bilateral 2017 mastectomy COLON SURGERY HX 2017 colorectal cancer COLONOSCOPY 08/22/2021 repeat in 1 year COLONOSCOPY - DIAGNOSTIC 09/20/2020 EGD 08/22/2021 EYE SURGERY HX Bilateral 2011 cataract F COLONOSCOPY WITH BIOPSY 08/01/2019 Dr. Marifer HIGUERA COLECTOMY PRTL W/COLOPXTSTMY LW ANAST 09/20/2019 Dr. Tash HIGUERA MOBLJ SPLENIC FLXR PFRMD W/PRTL COLECTOMY 09/20/2019 Dr. Bianchi MASTECTOMY, SIMPLE, COMPLETE 09/13/2017 right breast mastectomy, right axillary sentinal lymph node [facility], left breast prophylactic breast mastectomy NECK SURGERY HX 07/21/2024 C4-T1 PCDF PAST SURGICAL HISTORY OF Left 1985 ankle repair PAST SURGICAL HISTORY OF Left 1978 Fibrosis excised from Breast PAST SURGICAL HISTORY OF 07/2021 Excision Basal Cell, Nose PROCEDURE RM-COLONSCOPY W/BX 2013 TONSILLECTOMY HX as a child FAMILY HISTORY Problem Relation Age of Onset Cancer Mother Thyroid cancer dx late 50's Skin Cancer Mother dx 70's Breast Cancer Mother 83 Bone cancer dx 84, possible mets vs primary Stroke Father 39 other (stroke) Father Breast Cancer Sister dx late 50's; dx contralateral breasta cancer in early 60's Diabetes Sister Diabetes Brother Hypertension Brother Psychiatry Brother Schizophrenia Diabetes Maternal Grandmother GI Maternal Grandmother 62 Pancreatitis vs pancreatic cancer Stroke Paternal Grandmother Heart disease Paternal Grandfather Breast Cancer Maternal Aunt dx 80's Breast Cancer Maternal Aunt dx late 70's Stroke Maternal Aunt 80 Cancer Maternal Uncle Leukemia dx 60's Cancer Paternal Uncle Cancer NOS dx 80's other (Hirschsprung's disease) Other ALLERGIES Allergen Reactions Celebrex [Celecoxib] Hives Femara [Letrozole] Other: See Comments Severe muscle & joint pain Ramipril Anaphylaxis Vioxx [Rofecoxib] Hives Ferumoxytol Other: See Comments Current Outpatient Medications Medication Sig Dispense Refill LINZESS 145 mcg capsule 145 MCG ORALLY EVERY MORNING MYRBETRIQ 25 mg Tb24 Take 1 tablet by mouth once daily. ferrous sulfate (FEOSOL) 325 mg (65 mg iron) tablet Take 325 mg by mouth. LASIX 20 mg tablet 20 mg. ibuprofen (ADVIL ORAL) Take by mouth. aspirin, enteric coated (ASPIRIN, ENTERIC COATED) 81 mg EC tablet Take 1 tablet by mouth once daily. Hold for 5 days post operatively omega-3 DHA-EPA (FISH OIL) 1,200 (144-216) mg capsule Take 1 capsule by mouth once daily. acetaminophen (TYLENOL) 325 mg cap Take by mouth as needed for pain. magnesium oxide (MAG-OX) 400 mg (241.3 mg magnesium) tablet Take 400 mg by mouth once daily. NOVOLOG FLEXPEN 100 unit/mL inpn Inject 25 Units subcutaneously three times daily. LANTUS SOLOSTAR 100 unit/mL (3 mL) inpn Inject 30-35 Units subcutaneously daily at bedtime. alendronate (FOSAMAX) 70 mg tablet Take 1 tablet by mouth every other week. ONETOUCH ULTRA TEST test strip three times daily. Omeprazole 40 mg capsule Take 1 capsule by mouth once daily. simvastatin (ZOCOR) 10 mg tablet Take 1 tablet by mouth once daily. valsartan (DIOVAN) 40 mg tablet Take 1 tablet by mouth two times a day. methocarbamol (ROBAXIN) 750 mg tablet take one tablet by mouth three times daily for 14 days oxybutynin ER (DITROPAN XL) 10 mg 24 hr tablet Take 10 mg by mouth once daily. (Patient not taking:Reported on 01/17/2025) No current facility-administered medications for this visit. REVIEW OF SYSTEMS Review of Systems Constitutional: Negative for diaphoresis, fatigue and fever. HENT: Negative for ear pain, hearing loss and tinnitus. Eyes: Negative for photophobia, pain and visual disturbance. Respiratory: Negative for cough, chest tightness and shortness of breath. Cardiovascular: Negative for chest pain. Gastrointestinal: Negative for constipation, diarrhea, nausea and vomiting. Endocrine: Negative for polydipsia, polyphagia and polyuria. Genitourinary: Negative for difficulty urinating, frequency and urgency. Musculoskeletal: Positive for neck pain and neck stiffness. Negative for back pain and gait problem. Skin: Negative for color change and rash. Neurological: Positive for numbness. Negative for dizziness and weakness. Psychiatric/Behavioral: Negative for agitation and confusion. The patient is not nervous/anxious. OBJECTIVE: BP 115/54 Pulse 85 Resp 16 Wt 190 lb 7.6 oz (86.4kg) SpO2 94% PHYSICAL EXAM: Mental State : Alert, memory function unremarkable. Attention span and concentration normal for patient's age. Speech normal, no receptive or expressive speech deficit. Recent and remote memory normal. Orientation : Oriented to person, place and time. Cranial Nerves : Grossly intact. Sensory: Normal Sensation in upper and lower extremities and trunk to touch and noxious stimuli. Motor: Normal muscle tone and bulk. No tremor or uncontrollable movements. No spasticity or tremor. Gait and Station: ambulates without a walker today STRENGTH: Upper Extremity Strength Exam Right Left Elbow Flexion 5/5 5/5 Elbow Extension 5/5 5/5 Finger Flexion 5/5 5/5 Finger Extension 5/5 5/5 Finger Abduction 5/5 5/5 Lower Extremity Strength Exam Right Left Hip Flexion 5/5 5/5 Knee Flexion 5/5 5/5 Knee Extension 5/5 5/5 Dorsiflexion / 5/5 Plantarflexion / 5/5 Data Review IMAGING STUDIES: XR CERVICAL 01/15/2025: Posterior cervical fusion hardware in good position. Assessment & Plan: Ms. Sorensen presents 6 months after her posterior cervical decompression and fusion for stenosiswith myelopathy. She is doing well, with excellent improvement of her preoperative myelopathic symptoms. Over the last month or 2, she has been noticing some right hand numbness and tingling that is worse at night. It does not really extend proximal to her wrist. She has a positive Phalen's test onexam. She has similar symptoms in her left hand as well. I am suspicious that she has carpal tunnelsyndrome, and we will order EMG studies of her bilateral upper extremities. From a spine standpoint, she is healing well. Her x-rays look excellent. I will see her back in the office for this in 6 wed with repeat x-rays. I will follow-up with her virtually once her EMG studies are done, and I can make a referral to hand surgery if the diagnosis is correct. All questions were answered. Attribution: The following portions of the patient's history were reviewed, confirmed, and updated as necessary:allergies, current medications, past family history, past medical history, past social history, past surgical history, problem list, HPI, and ROS obtained by others. Some elements may be copied from a previous office note and have been reviewed/updated where appropriate. All portions reflect current medical decision making from today. The clinical and radiographic findings as well as the risks, benefits and alternatives of treatmenthave been reviewed in detail with the patient. Advised to call the office if symptoms worsen or new symptoms develop. Patient expressed understanding and is in agreement with plan. Bruno Lares MD [facility] Medical Decision Making: Problems: Moderate: 2+ stable chronic illnesses Data: Unique test result(s) reviewed: 1 Unique test(s) ordered: 1 Risk: Moderate: Moderate risk from testing/treatment Medical Decision Making Level: 4 - Moderate This note was partially generated using Dot VN voice recognition system, and there may be some incorrect words, spellings, and punctuation that were not noted in checking the note before saving. documented in this encounter[facility]25 [facility] History of Present illness Narrative* Lucinda Castillo RT(R) - 01/15/2025 12:45 PM EDT Radiology Service Progress Note PATIENT NAME: Orion Sorensen DATE OF SERVICE: January 15, 2025 TIME: 12:51 PM PATIENT IDENTITY VERIFICATION COMPLETED USING TWO (2) IDENTIFIERS: Name and Date of confirmedby patient verbally. FALL SCREENING: Has the patient had 2 falls in the last year or 1 fall with injury or currently using an Ambulatory Assistive Device (Walker, Cane, Wheelchair, Crutches, etc.)? No PATIENT GENDER DATA: PATIENT RELEVANT IMPLANT DATA REVIEWED: Not Applicable PATIENT PRESENTS WITH AN IMPLANTABLE OR ATTACHED DEPARTMENT MGR: No RADIOLOGY DEPARTMENT: General X-ray: Exam(s) Completed: Spine X-Ray(s): Cervical AP / LAT / FLEX-EXT PERIPHERAL IV DATA: Not applicable SIGNED BY: RT Adrian(R) January 15, 2025 12:51 PM documented in this encounterMer[facility]06-16-2025 [facility]05-29-2025 Evaluation note* Diagnosis Onset Date Resolution Status Admit Date Constipation acute December 28 9:50am [facility] Work Phone: [phone] [facility] Medical Records Department [address] [place] [address] Discharge Summary 11/22/24 1201 MR#: [id number] Acct: [id number] Name: ORION SORENSEN Rep #: [id number] : 1950 74 From: Ac Simms MD PCP: ROSENDO Perea Status:ADM IN Location: [address] Providers Date of Admission: 11/20/24 Date of Discharge: 11/22/24 Primary Care Physician: ROSENDO Perea Reason For Visit: SUSPECTED PNEUMONIA, RESPIRATORY INSUFFICIENCY Diagnosis Discharge Diagnosis (1) Pneumonia: Status: Acute Code(s): J18.9 - Pneumonia, unspecified organism Qualifiers: Pneumonia type: due to unspecified organism Laterality: bilateral Lung location: u nspecified part of lung Qualified Code(s): J18.9 - Pneumonia, unspecified organism (2) Respiratory insufficiency: Status: Acute Code(s): R06.89 - Other abnormalities of breathing (3) Hypoglycemia associated with type 2 diabetes mellitus: Status: Acute Code(s): E11.649 - Type 2 diabetes mellitus with hypoglycemia without coma (4) Fall at home: Status: Acute Code(s): W19.XXXA - Unspecified fall, initial encounter; Y92.009 - Unspecified place in unspecified non- institutional (private) residence as the place of occurrence of the external cause Qualifiers: Encounter type: initial encounter Qualified Code(s): W19.XXXA - Unspecified fall, initial encounter; Y92.009 - Unspecified place in unspecified non-institutional (private) residence as the place of occurrence of the external cause (5) Generalized weakness: Status: Acute Code(s): R53.1 - Weakness (6) Ambulatory dysfunction: Status: Acute Code(s): R26.2 - Difficulty in walking, not elsewhere classified (7) Decompression injury of spinal cord: Status: Acute Code(s): T70.3XXA - Caisson disease [decompression sickness], initial encounter (8) History of lower GI bleeding: Status: Acute Code(s): Z87.19 - Personal history of other diseases of the digestive system (9) Obesity (BMI 30-39.9): Status: Acute Code(s): E66.9 - Obesity, unspecified Plan 74-year-old female is being admitted for pain in the bilateral calfs, unwitnessed fall on the day before admission after missing walker and falling forward unknown LOC. Denies head injury. Complain of generalized weakness and decreased oral intake in the last few days. About 12 pack years of smoking 1. Bilateral atelectasis, generalized weakness, accompanied by low-grade fever of 100.1 ???F present on admission - Admit to the general medical floor. Portable frontal view of chest x-ray individually reviewed, no active cardiopulmonary disease but little underventilated. CT abdomen shows lower lung goldsmith has areas of groundglass opacification. Urinary antigens are negative. Triple PCR for SARS-CoV-2, flu and RSV are negative. CT chest was done and reviewed. Shows mild lung emphysema. Will monitor nodule in posterior right lower lobe. No groundglass explanation but patient has atelectasis or scarring otherwise no focal consolidation. UA is negative and she did not have burning micturition. I will discontinue antibiotic. Continue incentive spirometry, Mucinex DM and Pep 11/22: Patient did not have any fever. Vitals are normal acceptable range. Patient is doing discharge. Her weakness much improved. Advised to continue incentive spirometry for 1 week 2. Hypoglycemia of 48 g/dL present on admission with history of DM-2; on insulin glargine 35 units SQ at bedtime plus insulin aspart 3 times daily . Hypoglycemia resolved. A1c 7.4. Glucose 145 Tews 170. 11/22: Hypoglycemia resolved Humalog and Lantus insulin both decreased and advised to continue Accu-Cheks AC and at bedtime with holding parameter, to hold both Humalog and Lantus insulin if glucose less than 130 mg/dl 4. Acute debility due to C6-C7 surgery for decompression-patient denied for to me but said she could not get out of her couch. PT/OT and Case Management consult. 5. Recent admission here from October 30, 2024 to November 02, 2024 with LGIB with large stool burden on CT; s/p evaluation by gastroenterology with colonoscopy done on November 01, 2024 that revealed one 7 mm polyp at the splenic flexure removed with jumbo cold forceps resected and retrieved along with 2 bleeding colonic angiodysplastic lesions treated with argon plasma coagulation in the setting of previous end-to-end colocolonic anastomosis characterized by healthy-appearing mucosa amplifying the pathology of #1 - #4 - Noted. Patient has no evidence of active bleeding at this time. 6. Obesity; with a BMI of 35.2 this admission adding to the burden of disease outlined from #1 - #5 - Weight loss will be recommended. Check TSH. This complicates her case and may hamper recovery. 7. Essential hypertension; on valsartan and as needed furosemide daily - Stable with blood pressure of 148/59 mmHg present on admission. Con (more content not included)...[facility]04-09-2025 Evaluation + Plan note Future Scheduled Tests Laboratory* A1C Hemoglobin 11/08/24 * Complete Blood Count 11/08/24 * Lipid Profile 11/08/24 * Complete Metabolic Panel 11/08/24 [facility] 04-03-2025 Consult note [facility] Medical Records Department [address] [place] [address] Anesthesia Postop Eval II 11/01/24 1550 MR#: [id number] Acct: [id number] Name: ORION SORENSEN Rep #:[id number] : 1950 73 From: Robe Heart MD PCP: Terrie Goldstein, RN PROGRESSIVE CARE-C Status:AD M IN Y Race: C Location: [place] [id number] -1 Anesthesia Postop Eval I Sum Postop Eval Completion status Anesthesia document: Postop Eval 1 completed: Yes Anesthesia Postop Eval I Summary Anesthesia Postop Eval I Summary: Anesthesia Postop Eval I: Assessment Summary Airway patent Yes 11/01/24 15:50 Spontaneous unlabored Yes 11/01/24 15:50 respirations Mental status Awake 11/01/24 15:50 nausea No 11/01/24 15:50 Vomiting No 11/01/24 15:50 Anesthesia Postop Eval I: Fluid Summary Crystalloid volume administer 10 11/01/24 15:50 (ml) Colloids volume administered ( ml) Blood Product volume administered (ml) Total IV fluid infused 10 11/01/24 15:50 Anesthesia Postop Eval I: Summary Notes Anesthesia Complication No 11/01/24 15:50 Anesthesia Complication Comment: Post-operative progress note Anesthesia: Postop Eval II Evaluation Mental status: Awake Pain Level: 0 nausea: No Vomiting: No 11/01/24 1550 > Date _ Robe Heart MD Cosigner Signature: Date CC: ~ Signed [facility]04-03-2025 Discharge summary Author Sushant Olmedo [facility] Note Date/Time November 02, 2024 9:44 am [facility] Medical Records Department [address] [place] [address] Discharge Summary 11/02/24 0935 MR#: [id number] Acct: [id number] Name: ORION SORENSEN Rep #:[id number] : 1950 73 From: Sushant Olmedo MD PCP: ROSENDO Perea Status:AD M IN Location: [facility] [id number] Providers Date of Admission: 10/30/24 Date of Discharge: 11/02/24 Primary Care Physician: ROSENDO Perea Consultations 10/30/24 22:20 Consult: Gastroenterology Routine Consulting Provider: [facility] Reason for Consult: Lower GI bleed EMERGENT Consult: Yes MD Notified: Yes Date Notified: 10/30/24 Time Notified: 20:50 Method of Notification: ED Physician Initiated Reason For Visit: GI BLEED Diagnosis Discharge Diagnosis (1) Weakness: Status: Acute Code(s): R53.1 - Weakness (2) Anemia: Status: Acute Code(s): D64.9 - Anemia, unspecified (3) Acute lower GI bleeding: Status: Acute Code(s): K92.2 - Gastrointestinal hemorrhage, unspecified Plan Patient is a 73-year-old lady with history of hemorrhoids who presented with bleeding per rectum 1. Acute GI bleed ? CT of the abdomen and pelvis obtained did show mild stool burden within the large bowel no inflammatory changes. Was also found to have umbilical hernia containing fecal loops of transverse colon no inflammatory changes to suggest strangulation. Patient admitted to regular nursing floor managed with IV fluids, bowel rest n.p.o. after midnight with consultation placed to GI. 11/01/2024; patient scheduled to undergo colonoscopy as part of her Evaluation of GI bleed ? 11/02/2024; patient underwent colonoscopy findings are as below - Hemorrhoids found on perianal exam. One 7 mm polyp at the splenic flexure, removed with a jumbo cold forceps. Resected and retrieved. Two bleeding colonic angiodysplastic lesions. Treated with argon plasma coagulation (APC). Patent end-to-end colo-colonic anastomosis, characterized by healthy appearing mucosa. Plan is for patient to undergo repeat colonoscopy in a year per GI 2. Anemia Secondary to acute blood loss anemia from above monitoring H&H with plans to transfuse if patient hemoglobin falls below 7 or patient is deemed to be symptomatic 3. History of colon cancer ? Patient was treated with resection and has remained in remission since 2018 4. History of right breast CVA ? Patient was treated with bilateral mastectomy and chemo 5. Diabetes mellitus type II -patient's oral hypoglycemics held. Placed on long acting insulin, Accu-Cheks a.c. and at bedtime and covered with sliding scale insulin 6. Hypertension ? Blood pressure controlled, home medications continued with dose adjustment as needed 7. Dyslipidemia ?Patient is on statin therapy, continued at home dose 8. Class I obesity with BMI of 34.3 ? Weight loss advised 9. Osteoporosis ? Patient is on alendronate as outpatient plan is to resume on discharge 10. History of recent neck surgery ? On account of cervical spinal stenosis surgery was performed on 23 July 2024. Patient was admitted placed 11. DVT prophylaxis ? Avoided the use of chemoprophylaxis given patient presentation Time spent in the patient's overall evaluation,decision-making process, review of diagnostic data, adjustment of management, discussion with other providers, nursing nursing and ancillary staff involved in patient's care documentation, 38 minutes Medications at Discharge Home Medications alendronate 70 mg tablet (Fosamax) 70 mg PO QWEEK osteoporosis 09/06/17 aspirin 81 mg tablet,delayed release (Aspir-Low) 81 mg PO DAILY HEART 09/06/17 insulin aspart U-100 100 unit/mL (3 mL) subcutaneous pen (Novolog FlexPen U-100 Insulin aspart) 24 unit subcut TIDCM DIABETES 09/06/17 insulin glargine 100 unit/mL (3 mL) subcutaneous pen (Lantus Solostar U-100 Insulin) 35 unit subcut QHS DIABETES 09/06/17 omeprazole 40 mg capsule,delayed release 40 mg PO DAILY REFLUX 09/06/17 simvastatin 10 mg tablet (Zocor) 10 mg PO QHS CHOLESTEROL 09/06/17 valsartan 40 mg tablet (Diovan) 40 mg PO BID BP 09/06/17 magnesium oxide 400 mg (241.3 mg magnesium) tablet 400 mg PO DAILY muscle spasm 10/30/24 oxybutynin chloride 10 mg tablet,extended release 24 hr 10 mg PO DAILY bladder 10/30/24 iron polysaccharide complex-iron heme polypeptide 28 mg tablet 1 tab PO DAILY #60 tabs 11/02/24 Physical Exam Narrative GENERAL: cooperative HEENT: Atraumatic; normocephalic EYES; Anicteric, Normal Conjunctiva NECK; supple, normal thyroid, RESPIRATORY: Diminished to auscultation CARDIOVASCULAR: Regular S1 S2, GI: soft, normoactive bowel sounds, : No Renal angle tenderness; EXTREMITIES: No edema, no clubbing, MUSCULOSKELETAL: no muscle wasting NEURO: Awake; no lateralizing signs. SKIN: No Rash PSYCH; Flat affect Weight / BMI Weight Weight: 82.3 kg Body Mass Index (BMI) 34.2 ABG / Lab / Microbiology Data 11/02/24 07:04 11/02/24 07:04 Laboratory: Laboratory Results - last 24 hr 11/01/24 17:26: POC Glucose 154 H 11/01/24 20:10: POC Glucose 238 H 11/02/24 06:10: POC Glucose 144 H 11/02/24 07:04: WBC 4.8, RBC 3.09 L, Hgb 9.1 L, Hct 27.3 L, MCV 88.3, MCH 29.4, MCHC 33.3, RDW Std Deviation 47.5 H, RDW Coeff of Miriam 14.9 H, Plt Count 225, MPV8.3, Immature Gran % (Auto) 0.200, Neut % (Auto) 49.6, Lymph % (Auto) 39.7, [place]% (Auto) 6.7, Eos % (Auto) 3.2, Baso % (Auto) 0.6, Absolute Neuts (auto) 2.4, Absolute Lymphs (auto) 1.89, Nucleated RBC % 0, Sodium 139, Potassium 4.0, Chloride 106, Carbon Dioxide 21.5, Anion Gap 11, BUN 7, Creatinine 0.87, Estim Creat Clear Calc 54.33, Est GFR (MDRD) Non-Af 69, BUN/Creatinine Ratio 7.7 L, Glucose 157 H, Calcium 8.8 Microbiology: Microbiology 10/30/24 17:21 Stool Stool Occult Blood (MONY) - Final Occult Blood Positive D/C Instructions Discharge Diet: No restrictions Discharge Activity: Return to Normal Activity Call your doctor if you observe: Fever of 101 or Higher, Shortness of breath, Fainting spells and Chest pain DC O2, CPAP, BIPAP Needs Home O2 Discharge instructions: No Meaningful Use Info Meaningful Use Meaningful Use Diagnoses (Choose all that apply): None applicable Ischemic Stroke Statin Dosing Therapy Reference: STATIN DOSE THERAPY REFERENCE: * Patients > 75 years receive moderate or high dose statin therapy. * Patients 75 years or YOUNGER should receive HIGH intensity statin dose unless contraindicated. You will be required to document reason for non-treatment if statin daily dose does not meet guidelines. HIGH DOSE STATIN THERAPY DAILY Atorvastatin > than or = to 40 mg Rosuvastatin > than or = to 20 mg Amlodipine + Atorvastatin > than or = to 2.5/40 mg Ezetimibe + Simvastatin 10/80 mg Simvastatin 80mg Discharge Plan Admission Admit Date/Time: 10/30/24 20:46 Attending Provider: Sushant Olmedo Primary Care Provider: Terrie Goldstein Consulting Providers: Joe Chance Discharge Orders/Prescriptions Prescriptions: New iron polysac-iron heme polypep 28 mg tablet 1 tab PO DAILY Qty: 60 0RF Continued alendronate [Fosamax] 70 MG tablet 70 mg PO QWEEK simvastatin [Zocor] 10 MG tablet 10 mg PO QHS omeprazole 40 MG capsule,delayed release(DR/EC) 40 mg PO DAILY aspirin [Aspir-Low] 81 MG tablet,delayed release (DR/EC) 81 mg PO DAILY Patient Comments: WAS TOLD TO STOP 3 DAYS BEFORE valsartan [Diovan] 40 MG tablet 40 mg PO BID insulin aspart U-100 [Novolog FlexPen U-100 Insulin] 100 UNITS/ML insulin pen 24 unit subcut TIDCM insulin glargine [Lantus Solostar U-100 Insulin] 100 UNITS/ML insulin pen 35 unit subcut QHS oxybutynin chloride 10 mg tablet extended release 24hr 10 mg PO DAILY magnesium oxide 400 mg (241.3 mg magnesium) tablet 400 mg PO DAILY Referrals / Follow Up: Ivonne Avila MD [Non-Staff] - Within 2 Weeks Charles Glez DO [Med Staff - Active Staff] - Within 2 Weeks Terrie Goldstein NP-C [Primary Care Provider] - Disposition Disposition (needs filled in before D/C Order can be placed): Home, Self Care Charges/Coding Visit Charges Inpatient E&M: 49162 Disch Hosp >30min 11/02/24 0944 <Electronically signed by Sushant Olmedo MD> Cosigner Signature (if applicable): CC: ROSENDO Goldstein; Dr. Sushant Olmedo MD~ Signed [facility] Work Phone: [phone] 541-867204-03-2025 Discharge summary [facility] Medical Records Department [address] [place] [address] Discharge Summary 11/02/24 0935 MR#: [id number] Acct: [id number] Name: ORION SORENSEN Rep #:[id number] : 1950 73 From: Sushant Olmedo MD PCP: ROSENDO Perea Status:AD M IN Location: [facility] [id number] Providers Date of Admission: 10/30/24 Date of Discharge: 11/02/24 Primary Care Physician: ROSENDO Peera Consultations 10/30/24 22:20 Consult: Gastroenterology Routine Consulting Provider: [facility] Reason for Consult: Lower GI bleed EMERGENT Consult: Yes MD Notified: Yes Date Notified: 10/30/24 Time Notified: 20:50 Method of Notification: ED Physician Initiated Reason For Visit: GI BLEED Diagnosis Discharge Diagnosis (1) Weakness: Status: Acute Code(s): R53.1 - Weakness (2) Anemia: Status: Acute Code(s): D64.9 - Anemia, unspecified (3) Acute lower GI bleeding: Status: Acute Code(s): K92.2 - Gastrointestinal hemorrhage, unspecified Plan Patient is a 73-year-old lady with history of hemorrhoids who presented with bleeding per rectum 1. Acute GI bleed ? CT of the abdomen and pelvis obtained did show mild stool burden within the large bowel no inflammatory changes. Was also found to have umbilical hernia containing fecal loops of transverse colon no inflammatory changes to suggest strangulation. Patient admitted to regular nursing floor managed with IV fluids, bowel rest n.p.o. after midnight with consultation placed to GI. 11/01/2024; patient scheduled to undergo colonoscopy as part of her Evaluation of GI bleed ? 11/02/2024; patient underwent colonoscopy findings are as below - Hemorrhoids found on perianal exam. One 7 mm polyp at the splenic flexure, removed with a jumbo cold forceps. Resected and retrieved. Two bleeding colonic angiodysplastic lesions. Treated with argon plasma coagulation (APC). Patent end-to-end colo-colonic anastomosis, characterized by healthy appearing mucosa. Plan is for patient to undergo repeat colonoscopy in a year per GI 2. Anemia Secondary to acute blood loss anemia from above monitoring H&H with plans to transfuse if patient hemoglobin falls below 7 or patient is deemed to be symptomatic 3. History of colon cancer ? Patient was treated with resection and has remained in remission since 2018 4. History of right breast CVA ? Patient was treated with bilateral mastectomy and chemo 5. Diabetes mellitus type II -patient's oral hypoglycemics held. Placed on long acting insulin, Accu-Cheks a.c. and at bedtime and covered with sliding scale insulin 6. Hypertension ? Blood pressure controlled, home medications continued with dose adjustment as needed 7. Dyslipidemia ?Patient is on statin therapy, continued at home dose 8. Class I obesity with BMI of 34.3 ? Weight loss advised 9. Osteoporosis ? Patient is on alendronate as outpatient plan is to resume on discharge 10. History of recent neck surgery ? On account of cervical spinal stenosis surgery was performed on 8123 July 2024. Patient wasadmitted placed 11. DVT prophylaxis ? Avoided the use of chemoprophylaxis given patient presentation Time spent in the patient's overall evaluation,decision-making process, review of diagnostic data, adjustment of management, discussion with other providers, nursing nursing and ancillary staff involved in patient's care documentation, 38 minutes Medications at Discharge Home Medications alendronate 70 mg tablet (Fosamax) 70 mg PO QWEEK osteoporosis 09/06/17 aspirin 81 mg tablet,delayed release (Aspir-Low) 81 mg PO DAILY HEART 09/06/17 insulin aspart U-100 100 unit/mL (3 mL) subcutaneous pen (Novolog FlexPen U-100 Insulin aspart) 24 unit subcut TIDCM DIABETES 09/06/17 insulin glargine 100 unit/mL (3 mL) subcutaneous pen (Lantus Solostar U-100 Insulin) [facility] 09/06/17 omeprazole 40 mg capsule,delayed release 40 mg PO DAILY REFLUX 09/06/17 simvastatin 10 mg tablet (Zocor) 10 mg PO QHS CHOLESTEROL 09/06/17 valsartan 40 mg tablet (Diovan) 40 mg PO BID BP 09/06/17 magnesium oxide 400 mg (241.3 mg magnesium) tablet 400 mg PO DAILY muscle spasm 10/30/24 oxybutynin chloride 10 mg tablet,extended release 24 hr 10 mg PO DAILY bladder 10/30/24 iron polysaccharide complex-iron heme polypeptide 28 mg tablet 1 tab PO DAILY #60 tabs 11/02/24 Physical Exam Narrative GENERAL: cooperative HEENT: Atraumatic; normocephalic EYES; Anicteric, Normal Conjunctiva NECK; supple, normal thyroid, RESPIRATORY: Diminished to auscultation CARDIOVASCULAR: Regular S1 S2, GI: soft, normoactive bowel sounds, : No Renal angle tenderness; EXTREMITIES: No edema, no clubbing, MUSCULOSKELETAL: no muscle wasting NEURO: Awake; no lateralizing signs. SKIN: No Rash PSYCH; Flat affect Weight / BMI Weight Weight: 82.3 kg Body Mass Index (BMI) 34.2 ABG / Lab / Microbiology Data 11/02/24 07:04 11/02/24 07:04 Laboratory: Laboratory Results - last 24 hr 11/01/24 17:26: POC Glucose 154 H 11/01/24 20:10: POC Glucose 238 H 11/02/24 06:10: POC Glucose 144 H 11/02/24 07:04: WBC 4.8, RBC 3.09 L, Hgb 9.1 L, Hct 27.3 L, MCV 88.3, MCH 29.4, MCHC 33.3, RDW Std Deviation 47.5 H, RDW Coeff of Miriam 14.9 H, Plt Count 225, MPV8.3, Immature Gran % (Auto) 0.200, Neut% (Auto) 49.6, Lymph % (Auto) 39.7, Manati% (Auto) 6.7, Eos % (Auto) 3.2, Baso % (Auto) 0.6, AbsoluteNeuts (auto) 2.4, Absolute Lymphs (auto) 1.89, Nucleated RBC % 0, Sodium 139, Potassium 4.0, Chloride 106, Carbon Dioxide 21.5, Anion Gap 11, BUN 7, Creatinine 0.87, Estim Creat Clear Calc 54.33, EstGFR (MDRD) Non-Af 69, BUN/Creatinine Ratio 7.7 L, Glucose 157 H, Calcium 8.8 Microbiology: Microbiology 10/30/24 17:21 Stool Stool Occult Blood (MONY) - Final Occult Blood Positive D/C Instructions Discharge Diet: No restrictions Discharge Activity: Return to Normal Activity Call your doctor if you observe: Fever of 101 or Higher, Shortness of breath, Fainting spells and Chest pain DC O2, CPAP, BIPAP Needs Home O2 Discharge instructions: No Meaningful Use Info Meaningful Use Meaningful Use Diagnoses (Choose all that apply): None applicable Ischemic Stroke Statin Dosing Therapy Reference: STATIN DOSE THERAPY REFERENCE: * Patients > 75 years receive moderate or high dose statin therapy. * Patients 75 years or YOUNGER should receive HIGH intensity statin dose unless contraindicated. You will be required to document reason for non-treatment if statin daily dose does not meet guidelines. HIGH DOSE STATIN THERAPY DAILY Atorvastatin > than or = to 40 mg Rosuvastatin > than or = to 20 mg Amlodipine + Atorvastatin > than or = to 2.5/40 mg Ezetimibe + Simvastatin 10/80 mg Simvastatin 80mg Discharge Plan Admission Admit Date/Time: 10/30/24 20:46 Attending Provider: Sushant Olmedo Primary Care Provider: Terrie Goldstein Consulting Providers: Joe Chance Discharge Orders/Prescriptions Prescriptions: New iron polysac-iron heme polypep 28 mg tablet 1 tab PO DAILY Qty: 60 0RF Continued alendronate [Fosamax] 70 MG tablet 70 mg PO QWEEK simvastatin [Zocor] 10 MG tablet 10 mg PO QHS omeprazole 40 MG capsule,delayed release(DR/EC) 40 mg PO DAILY aspirin [Aspir-Low] 81 MG tablet,delayed release (DR/EC) 81 mg PO DAILY Patient Comments: WAS TOLD TO STOP 3 DAYS BEFORE valsartan [Diovan] 40 MG tablet 40 mg PO BID insulin aspart U-100 [Novolog FlexPen U-100 Insulin] 100 UNITS/ML insulin pen 24 unit subcut TIDCM insulin glargine [Lantus Solostar U-100 Insulin] 100 UNITS/ML insulin pen 35 unit subcut QHS oxybutynin chloride 10 mg tablet extended release 24hr 10 mg PO DAILY magnesium oxide 400 mg (241.3 mg magnesium) tablet 400 mg PO DAILY Referrals / Follow Up: Ivonne Avila MD [Non-Staff] - Within 2 Weeks Charles Glez DO [Med Staff - Active Staff] - Within 2 Weeks Terrie Goldstein NP-C [Primary Care Provider] - Disposition Disposition (needs filled in before D/C Order can be placed): Home, Self Care Charges/Coding Visit Charges Inpatient E&M: 48219 Disch Hosp >30min 11/02/24 0944 Cosigner Signature (if applicable): CC: ROSENDO Goldstein; Dr. Sushant Olmedo MD~ Signed [facility]04-03-2025 [facility] Medical Records Department [address] [place] [address] Discharge Summary 11/02/24 0935 MR#: [id number] Acct: [id number] Name: ORION SORENSEN Rep #: [id number] : 1950 73 From: Sushant Olmedo MD PCP: ROSENDO Perea Status:ADM IN Location: [place] [id number] Providers Date of Admission: 10/30/24 Date of Discharge: 11/02/24 Primary Care Physician: ROSENDO Perea Consultations 10/30/24 22:20 Consult: Gastroenterology Routine Consulting Provider: [place] [facility] [place] [facility] Reason for Consult: Lower GI bleed EMERGENT Consult: Yes MD Notified: Yes Date Notified: 10/30/24 Time Notified: 20:50 Method of Notification: ED Physician Initiated Reason For Visit: GI BLEED Diagnosis Discharge Diagnosis (1) Weakness: Status: Acute Code(s): R53.1 - Weakness (2) Anemia: Status: Acute Code(s): D64.9 - Anemia, unspecified (3) Acute lower GI bleeding: Status: Acute Code(s): K92.2 - Gastrointestinal hemorrhage, unspecified Plan Patient is a 73-year-old lady with history of hemorrhoids who presented with bleeding per rectum 1. Acute GI bleed ??? CT of the abdomen and pelvis obtained did show mild stool burden within the large bowel no inflammatory changes. Was also found to have umbilical hernia containing fecal loops of transverse colon no inflammatory changes to suggest strangulation. Patient admitted to regular nursing floor managed with IV fluids, bowel rest n.p.o. after midnight with consultation placed to GI. 11/01/2024; patient scheduled to undergo colonoscopy as part of her Evaluation of GI bleed ??? 11/02/2024; patient underwent colonoscopy findings are as below - Hemorrhoids found on perianal exam. One 7 mm polyp at the splenic flexure, removed with a jumbo cold forceps. Resected and retrieved. Two bleeding colonic angiodysplastic lesions. Treated with argon plasma coagulation (APC). Patent end-to-end colo-colonic anastomosis, characterized by healthy appearing mucosa. Plan is for patient to undergo repeat colonoscopy in a year per GI 2. Anemia Secondary to acute blood loss anemia from above monitoring H H with plans to transfuse if patient hemoglobin falls below 7 or patient is deemed to be symptomatic 3. History of colon cancer ??? Patient was treated with resection and has remained in remission since 2018 4. History of right breast CVA ??? Patient was treated with bilateral mastectomy and chemo 5. Diabetes mellitus type II -patient's oral hypoglycemics held. Placed on long acting insulin, Accu-Cheks a.c. and at bedtime and covered with sliding scale insulin 6. Hypertension ??? Blood pressure controlled, home medications continued with dose adjustment as needed 7. Dyslipidemia ???Patient is on statin therapy, continued at home dose 8. Class I obesity with BMI of 34.3 ??? Weight loss advised 9. Osteoporosis ??? Patient is on alendronate as outpatient plan is to resume on discharge 10. History of recent neck surgery ??? On account of cervical spinal stenosis surgery was performed on 8123 July 2024. Patient was admitted placed 11. DVT prophylaxis ??? Avoided the use of chemoprophylaxis given patient presentation Time spent in the patient's overall evaluation,decision-making process, review of diagnostic data, adjustment of management, discussion with other providers, nursing nursing and ancillary staff involved in patient's care documentation, 38 minutes Medications at Discharge Home Medications alendronate 70 mg tablet (Fosamax) 70 mg PO QWEEK osteoporosis 09/06/17 aspirin 81 mg tablet,delayed release (Aspir-Low) 81 mg PO DAILY HEART 09/06/17 insulin aspart U-100 100 unit/mL (3 mL) subcutaneous pen (Novolog FlexPen U-100 Insulin aspart) 24 unit subcut TIDCM DIABETES 09/06/17 insulin glargine 100 unit/mL (3 mL) subcutaneous pen (Lantus Solostar U-100 Insulin) 35 unit subcut QHS DIABETES 09/06/17 omeprazole 40 mg capsule,delayed release 40 mg PO DAILY REFLUX 09/06/17 simvastatin 10 mg tablet (Zocor) 10 mg PO QHS CHOLESTEROL 09/06/17 valsartan 40 mg tablet (Diovan) 40 mg PO BID BP 09/06/17 magnesium oxide 400 mg (241.3 mg magnesium) tablet 400 mg PO DAILY muscle spasm 10/30/24 oxybutynin chloride 10 mg tablet,extended release 24 hr 10 mg PO DAILY bladder 10/30/24 iron polysaccharide complex-iron heme polypeptide 28 mg tablet 1 tab PO DAILY #60 tabs 11/02/24 Physical Exam Narrative GENERAL: cooperative HEENT: Atraumatic; normocephalic EYES; Anicteric, Normal Conjunctiva NECK; supple, normal thyroid, RESPIRATORY: Diminished to auscultation CARDIOVASCULAR: Regular S1 S2, GI: soft, normoactive bowel sounds, : No Renal angle tenderness; EXTREMITIES: No edema, no clubbing, MUSCULOSKELETAL: no muscle wasting NEURO: Awake; no lateralizing signs. SKIN: No Rash PSYCH; Flat affect (more content not included)...[facility]04-02-2025 Consult note Author Robe Heart [facility] Note Date/Time November 01, 2024 3:50 pm [facility] Medical Records Department [address] [place] [address] Anesthesia Postop Eval I 11/01/24 1520 MR#: [id number] Acct: [id number] Name: ORION SORENSEN Rep #:[id number] : 1950 73 From: Robe Heart MD PCP: ROSENDO Perea Status:AD M IN Y Race: C Location: [place]3 [id number] Anesthesia: Postop Eval I Current Vital Signs Temperature: 97 F Pulse Rate: 71 Blood Pressure: 107/64 Respiratory Rate: 14 Pulse Ox: 93 Oxygen Delivery Method: Room Air Assessment Airway patent: Yes Spontaneous unlabored respirations: Yes Mental status: Awake nausea: No Vomiting: No Anesthesia Complication: No Fluid Hydration Crystalloid volume administer (ml): 10 Total IV fluid infused: 10 Progress Note Anesthesia document: Postop Eval 1 completed: Yes 11/01/24 1550 <Electronically signed by Robe Heart MD > Date _ Robe Heart MD Cosigner Signature: Date CC: ~ Signed [facility] Work Phone: [phone]) 168-429004-02-2025 Consult note Author Robe lorraine [facility] Note Date/Time November 02, 2024 12:3 5pm [facility] Medical Records Department [address] [place] [id number] Anesthesia Postop Eval II 11/01/24 1550 MR#: [id number] Acct: [id number] Name: ORION SORENSEN Rep #:[id number] : 1950 73 From: Robe Heart MD PCP: ROSENDO Perea Status:AD M IN Y Race: C Location: [place] [address] Anesthesia Postop Eval I Sum Postop Eval Completion status Anesthesia document: Postop Eval 1 completed: Yes Anesthesia Postop Eval I Summary Anesthesia Postop Eval I Summary: Anesthesia Postop Eval I: Assessment Summary Airway patent Yes 11/01/24 15:50 Spontaneous unlabored Yes 11/01/24 15:50 respirations Mental status Awake 11/01/24 15:50 nausea No 11/01/24 15:50 Vomiting No 11/01/24 15:50 Anesthesia Postop Eval I: Fluid Summary Crystalloid volume administer 10 11/01/24 15:50 (ml) Colloids volume administered ( ml) Blood Product volume administered (ml) Total IV fluid infused 10 11/01/24 15:50 Anesthesia Postop Eval I: Summary Notes Anesthesia Complication No 11/01/24 15:50 Anesthesia Complication Comment: Post-operative progress note Anesthesia: Postop Eval II Evaluation Mental status: Awake Pain Level: 0 nausea: No Vomiting: No 11/01/24 1550 <Electronically signed by Robe Heart MD > Date _ Robe Subramanianignwilfredo Signature: Date CC: ~ Signed [facility] Work Phone: [phone]) 230-970904-02-2025 Consult note Author Nnamdi Cisse [facility] Note Date/Time November 01, 2024 3:28 pm [facility] Medical Records Department [address] [place] [address] Anesthesia Postop Eval I 11/01/24 1527 MR#: [id number] Acct: [id number] Name: ORION SORENSEN Rep #:[id number] : 1950 73 From: Nnamdi Cisse PCP: ROSENDO Perea Status:AD M IN Y Race: C Location: [place] [address] Anesthesia: Postop Eval I Current Vital Signs Temperature: 97 F Pulse Rate: 72 Blood Pressure: 107/64 Respiratory Rate: 18 Pulse Ox: 94 Oxygen Delivery Method: Room Air Assessment Airway patent: Yes Spontaneous unlabored respirations: Yes Mental status: Asleep nausea: No Vomiting: No Anesthesia Complication: No Fluid Hydration Crystalloid volume administer (ml): 40 Total IV fluid infused: 40 Progress Note Anesthesia document: Postop Eval 1 completed: Yes 11/01/24 1528 <Electronically signed by Nnamdi Cisse > Date _ Nnamdi Redman Signature: Date CC: ~ Signed [facility] Work Phone: 1(794) 584-565804-02-2025 Consult note Author Charles Glez [facility] Note Date/Time November 01, 2024 2:40 pm [facility] Medical Records Department [address] [place] [address] Consultation - GI 11/01/24 1438 MR#: [id number] Acct: [id number] Name: ORION SORENSEN Rep #:[id number] : 1950 73 From: Charles Glez DO PCP: Terrie Goldstein NP-C Status:AD M IN [id number] HPI Consult Data Date of Consult: 11/01/24 HPI Narrative Reason for Consultation: GI bleed HPI Narrative: ORION SORENSEN, is a 73 F who presented to the emergency department complaint ofrectal bleeding for about a month off-and-on. She has history of hemorrhoids. Patient also started with some abdominal pain yesterday in the left lower abdomen. She does have history of prior diverticulitis. She has history of prior colon cancer with partial bowel resection. Patient denies fevers or chills or sweats. She denies vomiting. She is not anticoagulated [facility] Medical History Breast cancer Colorectal cancer Cancer Depression Diabetes Kidney disease GERD (gastroesophageal reflux disease) Former smoker Atrial fibrillation Hypertension Home Medications ?Medication ?Instructions ?Recorded ?Last Taken ?Type alendronate 70 mg tablet (Fosamax) 70 mg PO QWEEK oste oporosis 09/06/17 10/30/24 History aspirin 81 mg tablet,delayed 81 mg PO DAILY HEART 12/17 Unknown History release (Aspir-Low) insulin aspart U-100 100 unit/mL 24 unit subcut TIDCM DIABETES 09/06/17 Unknown History (3 mL) subcutaneous pen (Novolog FlexPen U-100 Insulin aspart) insulin glargine 100 unit/mL (3 35 unit subcut QHS NUNO BETES 09/06/17 Unknown History mL) subcutaneous pen (Lantus Solostar U-100 Insulin) omeprazole 40 mg capsule,delayed 40 mg PO DAILY REFLUX 09/06/17 09/13/17 06:00 History release simvastatin 10 mg tablet (Zocor) 10 mg PO QHS CHOLESTE ROL 09/06/17 Unknown History valsartan 40 mg tablet (Diovan) 40 mg PO BID BP 09/13/17 06:00 History magnesium oxide 400 mg (241.3 mg 400 mg PO DAILY muscl e spasm 10/30/24 Unknown History magnesium) tablet oxybutynin chloride 10 mg 10 mg PO DAILY bladder 10/30 Unknown History tablet,extended release 24 hr Allergy/AdvReac Type Severity Reaction Status Date / Time celecoxib (From Celebrex) Allergy Hives Verified 10/30/24 16:49 ramipril Allergy Hives Verified 10/30/24 16:49 rofecoxib (From Vioxx) Allergy Hives Verified 10/30/24 16:49 letrozole (From Femara) AdvReac Pain in Verified 10/30/24 16:49 joints Social History Smoking Status: Former smoker ROS Constitutional Constitutional: Denies fatigue, fever(s), poor appetite, weight gain or weight loss Gastrointestinal Gastrointestinal: Denies belching, bloating, change in bowel habits, change in stool character, chewing difficulty, coffee ground emesis, constipation, cramping, diarrhea, dyspepsia, dysphagia, early satiety, excessive flatus, fecalincontinence, heartburn, hematemesis, hematochezia, hemorrhoids, loose stools, melena, nausea, odynophagia, rectal bleeding, tenesmus, vomiting or weight changes Physical Exam Const alert, oriented x3, no apparent distress and healthy appearing General Appearance: cooperative GI normal to inspection, nondistended, normoactive bowel sounds, soft to palpation,non-tender and non-distended Percussion: normal to percussion Rectal Exam: deferred Lab / Micro Data 11/01/24 05:27 11/01/24 05:27 Labs: Laboratory Results - last 24 hr 10/31/24 16:41: POC Glucose 162 H 10/31/24 23:01: POC Glucose 186 H 11/01/24 05:27: WBC 5.3, RBC 3.20 L, Hgb 9.3 L, Hct 28.2 L, MCV 88.1, MCH 29.1, MCHC 33.0, RDW Std Deviation 48.8 H, RDW Coeff of Miriam 15.1 H, Plt Count 236, MPV8.2, Immature Gran % (Auto) 0.200, Neut % (Auto) 52.0, Lymph % (Auto) 37.7, Manati% (Auto) 7.2, Eos % (Auto) 2.5, Baso % (Auto) 0.4, Absolute Neuts (auto) 2.8, Absolute Lymphs (auto) 1.99, Nucleated RBC % 0, Sodium 138, Potassium 4.2, Chloride 107, Carbon Dioxide 20.7 L, Anion Gap 11, BUN 8, Creatinine 0.76, EstimCreat Clear Calc 59.09, Est GFR (MDRD) Non-Af 82, BUN/Creatinine Ratio 10.1, Glucose 183 H, Calcium 8.5, Phosphorus 3.4, Magnesium 1.7 11/01/24 06:35: POC Glucose 177 H Assessment & Plan Assessment/Plan (1) Weakness: (2) Anemia: (3) Acute lower GI bleeding: PLAN: Plan 1 73-year-old with history of colon cancer status postresection with primary anastomosis, breast cancer and history of diverticulosis with hemorrhoids with aacute GI bleed. Differential diagnosis does include diverticular bleeding, anastomotic bleeding, ischemic colitis, hemorrhoidal bleeding. She will undergocolonoscopy. She was explained alternatives, risk and benefits include not withstanding bleeding, fracture, sepsis, perforation, need for return to . She will have an ASA of 3. Charges/Coding Visit Charges Inpatient E&M: 27940 Init Hosp L3 11/01/24 1440 <Electronically signed by Charles Glez DO> Cosigner Signature (if applicable): CC: ROSENDO Goldstein; Dr. Bruce Mcclain DO~ Signed [facility] Work Phone: 1(409) 258-616404-02-2025 Consult note [facility] Medical Records Department [address] [place] [address] Anesthesia Postop Eval I 11/01/24 1520 MR#: [id number] Acct: [id number] Name: ORION SORENSENE Rep #:[id number] : 1950 73 From: Robe Heart MD PCP: Terrie Goldstein RN PROGRESSIVE CARE-C Status:AD M IN Y Race: C Location: [place] [address] Anesthesia: Postop Eval I Current Vital Signs Temperature: 97 F Pulse Rate: 71 Blood Pressure: 107/64 Respiratory Rate: 14 Pulse Ox: 93 Oxygen Delivery Method: Room Air Assessment Airway patent: Yes Spontaneous unlabored respirations: Yes Mental status: Awake nausea: No Vomiting: No Anesthesia Complication: No Fluid Hydration Crystalloid volume administer (ml): 10 Total IV fluid infused: 10 Progress Note Anesthesia document: Postop Eval 1 completed: Yes 11/01/24 1550 > Date _ Robe Heart [facility] Signature: Date CC: ~ Signed [facility]04-02-2025 Consult note [facility] Medical Records Department [address] [place] [address] Anesthesia Postop Eval I 11/01/24 1527 MR#: [id number] Acct: [id number] Name: ORION SORENSEN Rep #:[id number] : 1950 73 From: Nnamdi Cisse PCP: EDITH PereaC Status:AD M IN Y Race: C Location: [address] Anesthesia: Postop Eval I Current Vital Signs Temperature: 97 F Pulse Rate: 72 Blood Pressure: 107/64 Respiratory Rate: 18 Pulse Ox: 94 Oxygen Delivery Method: Room Air Assessment Airway patent: Yes Spontaneous unlabored respirations: Yes Mental status: Asleep nausea: No Vomiting: No Anesthesia Complication: No Fluid Hydration Crystalloid volume administer (ml): 40 Total IV fluid infused: 40 Progress Note Anesthesia document: Postop Eval 1 completed: Yes 11/01/24 1528 > Date _ Nnamdi Redman Signature: Date CC: ~ Signed [facility]04-02-2025 Procedure note [facility] Medical Records Department [address] [place] [address] Colonoscopy Report MR#: [id number] Acct: [id number] Name: ORION SORENSEN Rep #:[id number] : 1950 73 From: Charles Glez DO PCP: ROSENDO Perea Status:AD M IN Patient Name: Orion Sorensen Procedure Date: 11/01/2024 2:26 PM Date of : 1950 Age: 73 Procedure: Colonoscopy Indications: Hematochezia Providers: Charles Glez DO Medicines: Monitored Anesthesia Care Patient Profile: This is a 73 year old female. Refer to note in patient chart for documentation of history and physical. Last Colonoscopy: within the past 3 years. Complications: No immediate complications. Procedure: Pre-Anesthesia Assessment: - Prior to the procedure, a History and Physical was performed, and patient medications and allergies were reviewed. The patient is competent. The risks and benefits of the procedure and the sedation options and risks were discussed with the patient. All questions were answered and informed consent was obtained. Patient identification and proposed procedure were verified by the physician in the pre-procedure area. Mental Status Examination: alert and oriented. Airway Examination: normal oropharyngeal airway and neck mobility. Respiratory Examination: clear to auscultation. CV Examination: normal. Prophylactic Antibiotics: The patient does not require prophylactic antibiotics. Prior Anticoagulants: The patient has taken no anticoagulant or antiplatelet agents except for NSAID medication. ASA Grade Assessment: II - A patient with mild systemic disease. After reviewing the risks and benefits, the patient was deemed in satisfactory condition to undergo the procedure. The anesthesia plan was to use monitored anesthesia care (MAC). Immediately prior to administration of medications, the patient was re-assessed for adequacy to receive sedatives. The heart rate, respiratory rate, oxygen saturations, blood pressure, adequacy of pulmonary ventilation, and response to care were monitored throughout the procedure. The physical status of the patient was re-assessed after the procedure. After I obtained informed consent, the scope was passed under direct vision. Throughout the procedure, the patient's blood pressure, pulse, and oxygen saturations were monitored continuously. The colonoscope was introduced through the anus and advanced to the cecum, identified by appendiceal orifice and ileocecal valve. The colonoscopy was performed without difficulty. The patient tolerated the procedure well. Scope In: 2:58:19 PM Scope Withdrawal Time 0 hours 7 minutes 7 seconds Scope Out: 3:09:27 PM Total Procedure Duration Time 0 hours 11 minutes 8 seconds Findings: Hemorrhoids were found on perianal exam. A 7 mm polyp was found in the splenic flexure. The polyp was sessile. The polyp was removed with a jumbo cold forceps. Resection and retrieval were complete. Verification of patient identification for the specimen was done. Estimated blood loss was minimal. Two small localized angiodysplastic lesions with bleeding were found in the recto-sigmoid colon. Coagulation for hemostasis using argon plasma at 0.3 liters/minute and 20 carranza was successful. Estimated blood loss was minimal. There was evidence of a prior end-to-end colo-colonic anastomosis in the recto-sigmoid colon. This was patent and was characterized by healthy appearing mucosa. Impression: - Hemorrhoids found on perianal exam. - One 7 mm polyp at the splenic flexure, removed with a jumbo cold forceps. Resected and retrieved. - Two bleeding colonic angiodysplastic lesions. Treated with argon plasma coagulation (APC). - Patent end-to-end colo-colonic anastomosis, characterized by healthy appearing mucosa. Recommendation: - Discharge patient to home. - Repeat colonoscopy in 1 year. - Continue present medications. Procedure Code(s): --- Professional --- 67643, 59, Colonoscopy, flexible; with control of bleeding, any method 54009, Colonoscopy, flexible; with biopsy, single or multiple CPT copyright 2021 [employer]. All rights reserved. The codes documented in this report are preliminary and upon vp review may be revised to meet current compliance requirements. Charles Glez DO 11/01/2024 3:19:31 PM This report has been signed electronically. Number of Addenda: 0 Note Initiated On: 11/01/2024 2:26 PM 11/01/24 1519 Date _ Charles Glez DO Cosigner Signature: Date (if indicated) CC: RN PROGRESSIVE CARE-Osiris Goldstein; Charles Glez DO ~ Date Dictated: 11/01/24 1426 Date Transcribed: Cold Roll Catcher: TEGAN Pollock [facility]04-02-2025 Consult note Author Robe Heart [facility] Note Date/Time November 01, 2024 1:00 pm [facility] Medical Records Department [address] [place] [address] Pre-Anesthesia Evaluation 11/01/24 1259 MR#: [id number] Acct: [id number] Name: ORION SORENSEN Rep #:[id number] : 1950 73 From: Robe Heart MD PCP: ROSENDO Perea Status:AD M IN Y Race: C Location: [facility] MS319 -1 ASA Classification* ASA Classification ASA Classification: 3 Assessment & Plan Anesthesia* Anesthesia Assessment Anesthesia Assessment: Discussed sedation and/or anesthesia options, risks, benefits, and alternatives with patient/parents/legal guardian/POA. Questions invited. The patient/parents/legal guardian/POA seems to understand and agrees to proceedwith anesthesia plan. Reviewed the physical assessment, medical history, allergy history and patient home medications list prior to surgery/procedure/anesthetic and documented any changes. Performed airway and anesthesia risk assessments. Anesthesia Type Anesthesia Type: MAC (Has neck collar in place from prior neck surgery Jul 2024) Anesthesia Focused Assessment* Temperature: 97.7 F Pulse Rate: 68 Blood Pressure: 147/73 Respiratory Rate: 14 Pulse Ox: 100 Airway Assessment Mouth opens: >3 cm Mallampati Score: II Focused Labs Anesthesia Preop lab: CBC WBC 5.3 K/mm3 (4.4-11.0) 11/01/24 05:27 11/01/24 RBC 3.20 M/mm3 (4.2-5.4) L 11/01/24 05:11/01/24 Hgb 9.3 g/dL (12.0-15.0) L 11/01/24 05:11/01/24 Hct 28.2 % (37-47) L 11/01/24 05:11/01/24 Plt Count 236 K/mm3 (150-450) 11/01/24 05:27 11/01/24 CHEMISTRY Potassium 4.2 mmol/L (3.3-5.1) 11/01/24 05:11/01/24 Sodium 138 mmol/L (133-145) 11/01/24 05:27 11/01/24 Magnesium 1.7 mg/dL (1.5-2.2) 11/01/24 05:11/01/24 Phosphorus 3.4 mg/dL (2.7-4.5) 11/01/24 05:27 11/01/24 BUN 8 mg/dL (4-19) 11/01/24 05:11/01/24 Creatinine 0.76 mg/dL (0.70-1.20) 11/01/24 05:11/01/24 Glucose 183 mg/dL (70-99) H 11/01/24 05:11/01/24 POC Glucose 177 mg/dL (74-106) H 11/01/24 06:35 11/01/24 COAG PT 15.8 SECONDS (11.7-14.9) H 10/31/24 06:23 0408/26 Pre-Assessment Diagnosis/Proposed Procedure Planned Operative Procedure(s): Colonoscopy Anesthesia History Anesthesia History - research psychologist: Anesthesia History - research psychologist Hx Hospitalization Yes: [facility], [facility]IE/ 09/06/17 13:09 [place] 08/2017 Any Problems With Anesthesia No 11/01/24 06:50 Cholinesterase deficiency No 11/01/24 06:50 You/Your Family Experience No 11/01/24 06:50 fever (hyperthermia) with Relationship Recent Exposure to Contagious No 11/01/24 06:50 Disease Does patient have nerve No 11/01/24 06:50 stimulator Patient instructed to have No 11/01/24 06:50 device shut off --Does patient have Pacemaker No 11/01/24 10:18 or ICD? When Was Last Pacemaker Check QUESTION #4 FULL TEXT: You/Your Family Experience fever (hyperthermia) with Anesthesia Last Oral Intake Last Oral intake: Last Oral Intake NPO since 00:00 11/01/24 10:18 Meds taken in AM with sips of No 11/01/24 10:18 water? Meds patient instructed to take am of surgery PONV PONV - research psychologist: PONV - research psychologist Female HX of Motion Sickness HX of N/V After Surgery Non-Smoker Duration of Surgery greater than 60 minutes Number of Risk Factors PONV Score Height & Weight Height & Weight: Anesthesia: Height & Weight Height 5 ft 1 in 11/01/24 10:18 Weight: 82.3 kg 11/01/24 10:18 Body Mass Index (BMI) 34.2 11/01/24 10:18 Respiratory Assessment Respiratory Assessment - research psychologist: Respiratory Tract Infection Hx - research psychologist Hx Respiratory Tract Infection No 11/01/24 06:50 STOP Sleep Apnea STOP Sleep Apnea - research psychologist: STOP Sleep Apnea - research psychologist Hx Hypertension No 10/30/24 22:21 Hx Sleep Apnea No 10/30/24 22:21 CPAP BIPAP Do you snore loudly (louder No 10/30/24 22:21 than talking or can be heard Do you often feel tired/ No 10/30/24 22:21 fatigued/ sleepy during daytime? Has anyone observed you stop No 10/30/24 22:21 breathing during sleep? STOP Results Negative 10/30/24 22:21 QUESTION #5 FULL TEXT : Do you snore loudly (louder than talking or can be heard through closed doors)? 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 Specify any problems Hx of Preganancy in last 3 N/A 10/30/24 22:21 Months Nurse Filling Out Transfusion AHINES 10/30/24 22:21 & Questions: Date: 10/30/24 10/30/24 22:21 Time: 22:22 10/30/24 22:21 Patient unable to answer at this time (ie. confused, unrespo /Reproduction History /Reproductive History - research psychologist: /Reproductive Hx- research psychologist Hx Now No 11/01/24 06:50 Gestational Age (in weeks): EDC: Hx Hx Para Hx Section SAB No 11/01/24 06:50 Active Medications Active Medications: Current Medications Generic Name Dose Route Start Last Admin Trade Name Freq PRN Reason Stop Dose Admin Atorvastatin Calcium 5 mg 10/30/24 23:00 10/31/24 22:08 Atorvastatin Calcium 10 Mg Tablet PO 5 mg QHS JUSTINO Administration Hydralazine HCl 10 mg 10/31/24 22:14 Hydralazine 20 Mg/Ml Vial IV Q4H PRN PRN SBP > 160 Protocol Sodium Chloride 1,000 mls @ 125 mls/hr 10/30/24 17:20 11/01/24 10:28 IV 125 mls/hr .Q8H JUSTINO Administration Pantoprazole Sodium 40 mg/ 110 mls @ 330 mls/hr 10/30/24 23:00 11/01/24 10:50 Sodium Chloride IV Infused Q12 JUSTINO Infusion Insulin Glargine 30 unit 10/30/24 23:00 10/31/24 23:02 Insulin Glargine-Yfgn 100 Unit/Ml Pen SC Not Given QHS JUSTINO Insulin Human Lispro 0 unit 10/30/24 22:20 11/01/24 12:37 Insulin Lispro 100 Unit/Ml Insuln.Pen SC Not Given ACHS [facility] Protocol Iopamidol 0 ml 10/30/24 17:15 10/31/24 16:52 Contrast Allergy Safety Check IV Not Given X1 JUSTINO Losartan Potassium 25 mg 10/31/24 10:00 11/01/24 10:02 Losartan Potassium 25 Mg Tablet PO Not Given DAILY JUSTINO Protocol Melatonin 3 mg 10/30/24 23:00 10/31/24 22:08 Melatonin 3 Mg Tablet PO 3 mg QHS JUSTINO Administration Ondansetron HCl 4 mg 10/30/24 23:00 Ondansetron 4 Mg/2 Ml Vial IV Q8H PRN PRN NAUSEA/VOMITING Sodium Chloride 10 - 40 ml 10/30/24 22:21 0.9% Saline Lock 10 Ml Syringe IV UD PRN SALINE FLUSH Tolterodine Tartrate 4 mg 10/31/24 10:00 11/01/24 10:02 Tolterodine Tartrate 4 Mg Cap.Sa PO Not Given DAILY JUSTINO PFSH Medical History Breast cancer Colorectal cancer Cancer Depression Diabetes Kidney disease GERD (gastroesophageal reflux disease) Former smoker Atrial fibrillation Hypertension Home Medications ?Medication ?Instructions ?Recorded ?Last Taken ?Type alendronate 70 mg tablet (Fosamax) 70 mg PO QWEEK oste oporosis 09/06/17 10/30/24 History aspirin 81 mg tablet,delayed 81 mg PO DAILY HEART 12/17 Unknown History release (Aspir-Low) insulin aspart U-100 100 unit/mL 24 unit subcut TIDCM DIABETES 09/06/17 Unknown History (3 mL) subcutaneous pen (Novolog FlexPen U-100 Insulin aspart) insulin glargine 100 unit/mL (3 35 unit subcut QHS NUNO BETES 09/06/17 Unknown History mL) subcutaneous pen (Lantus Solostar U-100 Insulin) omeprazole 40 mg capsule,delayed 40 mg PO DAILY REFLUX 09/06/17 09/13/17 06:00 History release simvastatin 10 mg tablet (Zocor) 10 mg PO QHS CHOLESTE ROL 09/06/17 Unknown H istory valsartan 40 mg tablet (Diovan) 40 mg PO BID BP 09/13/17 06:00 History magnesium oxide 400 mg (241.3 mg 400 mg PO DAILY muscl e spasm 10/30/24 Unknown History magnesium) tablet oxybutynin chloride 10 mg 10 mg PO DAILY bladder 10/30 Unknown History tablet,extended release 24 hr Allergy/AdvReac Type Severity Reaction Status Date / Time celecoxib (From Celebrex) Allergy Hives Verified 10/30/24 16:49 ramipril Allergy Hives Verified 10/30/24 16:49 rofecoxib (From Vioxx) Allergy Hives Verified 10/30/24 16:49 letrozole (From Femara) AdvReac Pain in Verified 10/30/24 16:49 joints Social History Smoking Status: Former smoker Review of Systems (Anesthesia) ROS Narrative System reviewed and no additional complaints, except as documented. 11/01/24 1300 <Electronically signed by Robe Heart MD > Date _ Robe Heart MD Cosign Signature: Date CC: ~ Signed [facility] Work Phone: [phone] 159-947304-02-2025 Consult note [facility] Medical Records Department [address] [place] [id number] Consultation - GI 11/01/24 1438 MR#: [id number] Acct: [id number] Name: ORION SORENSEN Rep #:[id number] : 1950 73 From: Charles Friend PCP: ROSENDO Perea Status:AD M IN Location: [facility] WI529-5 HPI Consult Data Date of Consult: 11/01/24 HPI Narrative Reason for Consultation: GI bleed HPI Narrative: ORION SORENSEN, is a 73 F who presented to the emergency department complaint ofrectal bleeding forabout a month off-and-on. She has history of hemorrhoids. Patient also started with some abdominal pain yesterday in the left lower abdomen. She does have history of prior diverticulitis. She has history of prior colon cancer with partial bowel resection. Patient denies fevers or chills or sweats. She denies vomiting. She is not anticoagulated [facility] Medical History Breast cancer Colorectal cancer Cancer Depression Diabetes Kidney disease GERD (gastroesophageal reflux disease) Former smoker Atrial fibrillation Hypertension Home Medications ?Medication ?Instructions ?Recorded ?Last Taken ?Type alendronate 70 mg tablet (Fosamax) 70 mg PO QWEEK oste oporosis 09/06/17 10/30/24 History aspirin 81 mg tablet,delayed 81 mg PO DAILY HEART 12/17 Unknown History release (Aspir-Low) insulin aspart U-100 100 unit/mL 24 unit subcut TIDCM DIABETES 09/06/17 Unknown History (3 mL) subcutaneous pen (Novolog FlexPen U-100 Insulin aspart) insulin glargine 100 unit/mL (3 35 unit subcut QHS NUNO BETES 09/06/17 Unknown History mL) subcutaneous pen (Lantus Solostar U-100 Insulin) omeprazole 40 mg capsule,delayed 40 mg PO DAILY REFLUX 09/06/17 09/13/17 06:00 History release simvastatin 10 mg tablet (Zocor) 10 mg PO QHS CHOLESTE ROL 09/06/17 Unknown History valsartan 40 mg tablet (Diovan) 40 mg PO BID BP 09/13/17 06:00 History magnesium oxide 400 mg (241.3 mg 400 mg PO DAILY muscl e spasm 10/30/24 Unknown History magnesium) tablet oxybutynin chloride 10 mg 10 mg PO DAILY bladder 10/30 Unknown History tablet,extended release 24 hr Allergy/AdvReac Type Severity Reaction Status Date / Time celecoxib (From Celebrex) Allergy Hives Verified 10/30/24 16:49 ramipril Allergy Hives Verified 10/30/24 16:49 rofecoxib (From Vioxx) Allergy Hives Verified 10/30/24 16:49 letrozole (From Femara) AdvReac Pain in Verified 10/30/24 16:49 joints Social History Smoking Status: Former smoker ROS Constitutional Constitutional: Denies fatigue, fever(s), poor appetite, weight gain or weight loss Gastrointestinal Gastrointestinal: Denies belching, bloating, change in bowel habits, change in stool character, chewing difficulty, coffee ground emesis, constipation, cramping, diarrhea, dyspepsia, dysphagia, earlysatiety, excessive flatus, fecalincontinence, heartburn, hematemesis, hematochezia, hemorrhoids, loose stools, melena, nausea, odynophagia, rectal bleeding, tenesmus, vomiting or weight changes Physical Exam Const alert, oriented x3, no apparent distress and healthy appearing General Appearance: cooperative GI normal to inspection, nondistended, normoactive bowel sounds, soft to palpation,non-tender and non-distended Percussion: normal to percussion Rectal Exam: deferred Lab / Micro Data 11/01/24 05:27 11/01/24 05:27 Labs: Laboratory Results - last 24 hr 10/31/24 16:41: POC Glucose 162 H 10/31/24 23:01: POC Glucose 186 H 11/01/24 05:27: WBC 5.3, RBC 3.20 L, Hgb 9.3 L, Hct 28.2 L, MCV 88.1, MCH 29.1, MCHC 33.0, RDW Std Deviation 48.8 H, RDW Coeff of Miriam 15.1 H, Plt Count 236, MPV8.2, Immature Gran % (Auto) 0.200, Neut% (Auto) 52.0, Lymph % (Auto) 37.7, [place]% (Auto) 7.2, Eos % (Auto) 2.5, Baso % (Auto) 0.4, AbsoluteNeuts (auto) 2.8, Absolute Lymphs (auto) 1.99, Nucleated RBC % 0, Sodium 138, Potassium 4.2, Chloride 107, Carbon Dioxide 20.7 L, Anion Gap 11, BUN 8, Creatinine 0.76, EstimCreat Clear Calc 59.09, Est GFR (MDRD) Non-Af 82, BUN/Creatinine Ratio 10.1, Glucose 183 H, Calcium 8.5, Phosphorus 3.4, Magnesium 1.7 11/01/24 06:35: POC Glucose 177 H Assessment & Plan Assessment/Plan (1) Weakness: (2) Anemia: (3) Acute lower GI bleeding: PLAN: Plan 1 73-year-old with history of colon cancer status postresection with primary anastomosis, breast cancer and history of diverticulosis with hemorrhoids with aacute GI bleed. Differential diagnosis does include diverticular bleeding, anastomotic bleeding, ischemic colitis, hemorrhoidal bleeding. She will undergocolonoscopy. She was explained alternatives, risk and benefits include not withstanding bleeding, fracture, sepsis, perforation, need for return to . She will have an ASA of 3. Charges/Coding Visit Charges Inpatient E&M: 12167 Init Hosp L3 11/01/24 1440 Cosigner Signature (if applicable): CC: ROSENDO Goldstein; Dr. Bruce Mcclain, DO~ Signed [facility]04-02-2025 Consult note [facility] Medical Records Department [address] [place] [address] Pre-Anesthesia Evaluation 11/01/24 1259 MR#: [id number] Acct: [id number] Name: ORION SORENSEN Rep #:[id number] : 1950 73 From: Robe Heart MD PCP: ROSENDO Perea Status:AD M IN Y Race: C Location: [place] 218179 -1 ASA Classification* ASA Classification ASA Classification: 3 Assessment & Plan Anesthesia* Anesthesia Assessment Anesthesia Assessment: Discussed sedation and/or anesthesia options, risks, benefits, and alternatives with patient/parents/legal guardian/POA. Questions invited. The patient/parents/legal guardian/POA seems to understand and agrees to proceedwith anesthesia plan. Reviewed the physical assessment, medical history, allergy history and patient home medications list prior to surgery/procedure/anesthetic and documented any changes. Performed airway and anesthesia risk assessments. Anesthesia Type Anesthesia Type: MAC (Has neck collar in place from prior neck surgery Jul 2024) Anesthesia Focused Assessment* Temperature: 97.7 F Pulse Rate: 68 Blood Pressure: 147/73 Respiratory Rate: 14 Pulse Ox: 100 Airway Assessment Mouth opens: >3 cm Mallampati Score: II Focused Labs Anesthesia Preop lab: CBC WBC 5.3 K/mm3 (4.4-11.0) 11/01/24 05:27 11/01/24 RBC 3.20 M/mm3 (4.2-5.4) L 11/01/24 05:27 11/01/24 Hgb 9.3 g/dL (12.0-15.0) L 11/01/24 05:27 11/01/24 Hct 28.2 % (37-47) L 11/01/24 05:27 11/01/24 Plt Count 236 K/mm3 (150-450) 11/01/24 05:27 11/01/24 CHEMISTRY Potassium 4.2 mmol/L (3.3-5.1) 11/01/24 05:11/01/24 Sodium 138 mmol/L (133-145) 11/01/24 05:27 11/01/24 Magnesium 1.7 mg/dL (1.5-2.2) 11/01/24 05:11/01/24 Phosphorus 3.4 mg/dL (2.7-4.5) 11/01/24 05:11/01/24 BUN 8 mg/dL (4-19) 11/01/24 05:11/01/24 Creatinine 0.76 mg/dL (0.70-1.20) 11/01/24 05:27 11/01/24 Glucose 183 mg/dL (70-99) H 11/01/24 05:27 11/01/24 POC Glucose 177 mg/dL (74-106) H 11/01/24 06:35 11/01/24 COAG PT 15.8 SECONDS (11.7-14.9) H 10/31/24 06:23 04/08/26 Pre-Assessment Diagnosis/Proposed Procedure Planned Operative Procedure(s): Colonoscopy Anesthesia History Anesthesia History - research psychologist: Anesthesia History - research psychologist Hx Hospitalization Yes: COLITISJOIE/ 09/06/17 13:09 [place] 08/2017 Any Problems With Anesthesia No 11/01/24 06:50 Cholinesterase deficiency No 11/01/24 06:50 You/Your Family Experience No 11/01/24 06:50 fever (hyperthermia) with Relationship Recent Exposure to Contagious No 11/01/24 06:50 Disease Does patient have nerve No 11/01/24 06:50 stimulator Patient instructed to have No 11/01/24 06:50 device shut off --Does patient have Pacemaker No 11/01/24 10:18 or ICD? When Was Last Pacemaker Check QUESTION #4 FULL TEXT: You/Your Family Experience fever (hyperthermia) with Anesthesia Last Oral Intake Last Oral intake: Last Oral Intake NPO since 00:00 11/01/24 10:18 Meds taken in AM with sips of No 11/01/24 10:18 water? Meds patient instructed to take am of surgery PONV PONV - research psychologist: PONV - research psychologist Female HX of Motion Sickness HX of N/V After Surgery Non-Smoker Duration of Surgery greater than 60 minutes Number of Risk Factors PONV Score Height & Weight Height & Weight: Anesthesia: Height & Weight Height 5 ft 1 in 11/01/24 10:18 Weight: 82.3 kg 11/01/24 10:18 Body Mass Index (BMI) 34.2 11/01/24 10:18 Respiratory Assessment Respiratory Assessment - research psychologist: Respiratory Tract Infection Hx - research psychologist Hx Respiratory Tract Infection No 11/01/24 06:50 STOP Sleep Apnea STOP Sleep Apnea - research psychologist: STOP Sleep Apnea - research psychologist Hx Hypertension No 10/30/24 22:21 Hx Sleep Apnea No 10/30/24 22:21 CPAP BIPAP Do you snore loudly (louder No 10/30/24 22:21 than talking or can be heard Do you often feel tired/ No 10/30/24 22:21 fatigued/ sleepy during daytime? Has anyone observed you stop No 10/30/24 22:21 breathing during sleep? STOP Results Negative 10/30/24 22:21 QUESTION #5 FULL TEXT : Do you snore loudly (louder than talking or can be heard through closeddoors)? 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 Specify any problems Hx of Preganancy in last 3 N/A 10/30/24 22:21 Months Nurse Filling Out Transfusion AHINES 10/30/24 22:21 & Questions: Date: 10/30/24 10/30/24 22:21 Time: 22:22 10/30/24 22:21 Patient unable to answer at this time (ie. confused, unrespo /Reproduction History /Reproductive History - research psychologist: /Reproductive Hx- research psychologist Hx Now No 11/01/24 06:50 Gestational Age (in weeks): EDC: Hx Hx Para Hx Section SAB No 11/01/24 06:50 Active Medications Active Medications: Current Medications Generic Name Dose Route Start Last Admin Trade Name Freq PRN Reason Stop Dose Admin Atorvastatin Calcium 5 mg 10/30/24 23:00 10/31/24 22:08 Atorvastatin Calcium 10 Mg Tablet PO 5 mg QHS JUSTINO Administration Hydralazine HCl 10 mg 10/31/24 22:14 Hydralazine 20 Mg/Ml Vial IV Q4H PRN PRN SBP > 160 Protocol Sodium Chloride 1,000 mls @ 125 mls/hr 10/30/24 17:20 11/01/24 10:28 IV 125 mls/hr .Q8H JUSTINO Administration Pantoprazole Sodium 40 mg/ 110 mls @ 330 mls/hr 10/30/24 23:00 11/01/24 10:50 Sodium Chloride IV Infused Q12 JUSTINO Infusion Insulin Glargine 30 unit 10/30/24 23:00 10/31/24 23:02 Insulin Glargine-Yfgn 100 Unit/Ml Pen SC Not Given QHS JUSTINO Insulin Human Lispro 0 unit 10/30/24 22:20 11/01/24 12:37 Insulin Lispro 100 Unit/Ml Insuln.Pen SC Not Given ACHS JUSTINO Protocol Iopamidol 0 ml 10/30/24 17:15 10/31/24 16:52 Contrast Allergy Safety Check IV Not Given X1 JUSTINO Losartan Potassium 25 mg 10/31/24 10:00 11/01/24 10:02 Losartan Potassium 25 Mg Tablet PO Not Given DAILY JUSTINO Protocol Melatonin 3 mg 10/30/24 23:00 10/31/24 22:08 Melatonin 3 Mg Tablet PO 3 mg QHS JUSTINO Administration Ondansetron HCl 4 mg 10/30/24 23:00 Ondansetron 4 Mg/2 Ml Vial IV Q8H PRN PRN NAUSEA/VOMITING Sodium Chloride 10 - 40 ml 10/30/24 22:21 0.9% Saline Lock 10 Ml Syringe IV UD PRN SALINE FLUSH Tolterodine Tartrate 4 mg 10/31/24 10:00 11/01/24 10:02 Tolterodine Tartrate 4 Mg Cap.Sa PO Not Given DAILY JUSTINO PFSH Medical History Breast cancer Colorectal cancer Cancer Depression Diabetes Kidney disease GERD (gastroesophageal reflux disease) Former smoker Atrial fibrillation Hypertension Home Medications ?Medication ?Instructions ?Recorded ?Last Taken ?Type alendronate 70 mg tablet (Fosamax) 70 mg PO QWEEK oste oporosis 09/06/17 10/30/24 History aspirin 81 mg tablet,delayed 81 mg PO DAILY HEART 12/17 Unknown History release (Aspir-Low) insulin aspart U-100 100 unit/mL 24 unit subcut TIDCM DIABETES 09/06/17 Unknown History (3 mL) subcutaneous pen (Novolog FlexPen U-100 Insulin aspart) insulin glargine 100 unit/mL (3 35 unit subcut QHS NUNO BETES 09/06/17 Unknown History mL) subcutaneous pen (Lantus Solostar U-100 Insulin) omeprazole 40 mg capsule,delayed 40 mg PO DAILY REFLUX 09/06/17 09/13/17 06:00 History release simvastatin 10 mg tablet (Zocor) 10 mg PO QHS CHOLESTE ROL 09/06/17 Unknown H istory valsartan 40 mg tablet (Diovan) 40 mg PO BID BP 09/13/17 06:00 History magnesium oxide 400 mg (241.3 mg 400 mg PO DAILY muscl e spasm 10/30/24 Unknown History magnesium) tablet oxybutynin chloride 10 mg 10 mg PO DAILY bladder 10/30 Unknown History tablet,extended release 24 hr Allergy/AdvReac Type Severity Reaction Status Date / Time celecoxib (From Celebrex) Allergy Hives Verified 10/30/24 16:49 ramipril Allergy Hives Verified 10/30/24 16:49 rofecoxib (From Vioxx) Allergy Hives Verified 10/30/24 16:49 letrozole (From Femara) AdvReac Pain in Verified 10/30/24 16:49 joints Social History Smoking Status: Former smoker Review of Systems (Anesthesia) ROS Narrative System reviewed and no additional complaints, except as documented. 11/01/24 1300 > Date _ Robe Heart MD Cosigner Signature: Date CC: ~ Signed [facility]04-02-2025 Progress note Author Sushant Olmedo [facility] Note Date/Time November 01, 2024 7:51 am [facility] Medical Records Department [address] [place] [address] Progress Note - Hospitalist 11/01/2423 MR#: [id number] Acct: [id number] Name: ORION SORENSEN Rep #:[id number] : 1950 73 From: Sushant Olmedo MD PCP: ROSENDO Perea Status:AD M IN Location: [facility] [id number] Reason for Visit Reason for Visit: Diagnoses Anemia, unspecified (10/30/24) Gastrointestinal hemorrhage, unspecified (10/30/24) Weakness (10/30/24) Subjective Subjective Patient seen currently being prepped for colonoscopy Objective Data Objective Data Vital Signs: Vital Signs Temp Pulse Resp BP Pulse Ox O2 Del Method 97.9 F 71 16 158/77 H 99 Room Air 11/01/24 06:44 11/01/24 06:44 11/01/24 06:44 11/01/24 06:44 11/01/24 06:44 11/01/24 06:44 Oxygen Delivery Method Room Air Weight: 82.3 kg Body Mass Index (BMI) 34.2 Intake & Output: Intake and Output for Last 24 Hours 10/30/24 10/31/24 11/01/24 23:59 23:59 23:59 Intake Total 110 / 410 2287.08 / 2287.08 1097.5 / 1097.5 Balance 110 / 410 2287.08 / 2287.08 1097.5 / 1097.5 Lab / Micro Data 11/01/24 05:27 11/01/24 05:27 Labs: Laboratory Results - last 24 hr 10/31/24 10:18: Hgb 9.3 L, Hct 27.6 L 10/31/24 11:25: POC Glucose 180 H 10/31/24 16:41: POC Glucose 162 H 10/31/24 23:01: POC Glucose 186 H 11/01/24 05:27: WBC 5.3, RBC 3.20 L, Hgb 9.3 L, Hct 28.2 L, MCV 88.1, MCH 29.1, MCHC 33.0, RDW Std Deviation 48.8 H, RDW Coeff of Miriam 15.1 H, Plt Count 236, MPV8.2, Immature Gran % (Auto) 0.200, Neut % (Auto) 52.0, Lymph % (Auto) 37.7, [place]ati% (Auto) 7.2, Eos % (Auto) 2.5, Baso % (Auto) 0.4, Absolute Neuts (auto) 2.8, Absolute Lymphs (auto) 1.99, Nucleated RBC % 0, Sodium 138, Potassium 4.2, Chloride 107, Carbon Dioxide 20.7 L, Anion Gap 11, BUN 8, Creatinine 0.76, EstimCreat Clear Calc 59.09, Est GFR (MDRD) Non-Af 82, BUN/Creatinine Ratio 10.1, Glucose 183 H, Calcium 8.5, Phosphorus 3.4, Magnesium 1.7 11/01/24 06:35: POC Glucose 177 H Micro: Microbiology 10/30/24 17:21 Stool Stool Occult Blood (MONY) - Final Occult Blood Positive Physical Exam Narrative GENERAL: cooperative HEENT: Atraumatic; normocephalic EYES; Anicteric, Normal Conjunctiva NECK; supple, normal thyroid, RESPIRATORY: Diminished to auscultation CARDIOVASCULAR: Regular S1 S2, GI: soft, normoactive bowel sounds, : No Renal angle tenderness; EXTREMITIES: No edema, no clubbing, MUSCULOSKELETAL: no muscle wasting NEURO: Awake; no lateralizing signs. SKIN: No Rash PSYCH; Flat affect Assessment & Plan Assessment/Plan (1) Weakness: (2) Anemia: (3) Acute lower GI bleeding: PLAN: Plan Patient is a 73-year-old lady with history of hemorrhoids who presented with bleeding per rectum 1. Acute GI bleed ? CT of the abdomen and pelvis obtained did show mild stool burden within the large bowel no inflammatory changes. Was also found to have umbilical hernia containing fecal loops of transverse colon no inflammatory changes to suggest strangulation. Patient admitted to regular nursing floor managed with IV fluids, bowel rest n.p.o. after midnight with consultation placed to GI. ?/09/2024; patient scheduled to undergo colonoscopy as part of her Evaluation of GI bleed 2. Anemia Secondary to acute blood loss anemia from above monitoring H&H with plans to transfuse if patient hemoglobin falls below 7 or patient is deemed to be symptomatic 3. History of colon cancer ? Patient was treated with resection and has remained in remission since 2018 4. History of right breast CVA ? Patient was treated with bilateral mastectomy and chemo 5. Diabetes mellitus type II -patient's oral hypoglycemics held. Placed on long acting insulin, Accu-Cheks a.c. and at bedtime and covered with sliding scale insulin 6. Hypertension ? Blood pressure controlled, home medications continued with dose adjustment as needed 7. Dyslipidemia ?Patient is on statin therapy, continued at home dose 8. Class I obesity with BMI of 34.3 ? Weight loss advised 9. Osteoporosis ? Patient is on alendronate as outpatient plan is to resume on discharge 10. History of recent neck surgery ? On account of cervical spinal stenosis surgery was performed on 8123 July 2024. Patient was admitted placed 11. DVT prophylaxis ? Avoided the use of chemoprophylaxis given patient presentation Time spent in the patient's overall evaluation,decision-making process, review of diagnostic data, adjustment of management, discussion with other providers, nursing nursing and ancillary staff involved in patient's care documentation, 38 minutes Charges/Coding Visit Charges Inpatient E&M: 17376 Subs Hosp L2 11/01/24 0740 <Electronically signed by Sushant Olmedo MD> Cosigner Signature (if applicable): CC: ~ Signed [facility] Work Phone: 1(326) 576-697204-02-2025 Progress note [facility] Medical Records Department [address] [place] [address] Progress Note - Hospitalist 11/01/24 0723 MR#: [id number] Acct: [id number] Name: ORION SORENSEN Rep #:[id number] : 1950 73 From: Sushant Olmedo MD PCP: ROSENDO Perea Status:AD M IN Location: [facility] [id number] Reason for Visit Reason for Visit: Diagnoses Anemia, unspecified (10/30/24) Gastrointestinal hemorrhage, unspecified (10/30/24) Weakness (10/30/24) Subjective Subjective Patient seen currently being prepped for colonoscopy Objective Data Objective Data Vital Signs: Vital Signs Temp Pulse Resp BP Pulse Ox O2 Del Method 97.9 F 71 16 158/77 H 99 Room Air 11/01/24 06:44 11/01/24 06:44 11/01/24 06:44 11/01/24 06:44 11/01/24 06:44 11/01/24 06:44 Oxygen Delivery Method Room Air Weight: 82.3 kg Body Mass Index (BMI) 34.2 Intake & Output: Intake and Output for Last 24 Hours 10/30/24 10/31/24 11/01/24 23:59 23:59 23:59 Intake Total 110 / 410 2287.08 / 2287.08 1097.5 / 1097.5 Balance 110 / 410 2287.08 / 2287.08 1097.5 / 1097.5 Lab / Micro Data 11/01/24 05:27 11/01/24 05:27 Labs: Laboratory Results - last 24 hr 10/31/24 10:18: Hgb 9.3 L, Hct 27.6 L 10/31/24 11:25: POC Glucose 180 H 10/31/24 16:41: POC Glucose 162 H 10/31/24 23:01: POC Glucose 186 H 11/01/24 05:27: WBC 5.3, RBC 3.20 L, Hgb 9.3 L, Hct 28.2 L, MCV 88.1, MCH 29.1, MCHC 33.0, RDW Std Deviation 48.8 H, RDW Coeff of Miriam 15.1 H, Plt Count 236, MPV8.2, Immature Gran % (Auto) 0.200, Neut% (Auto) 52.0, Lymph % (Auto) 37.7, [place]% (Auto) 7.2, Eos % (Auto) 2.5, Baso % (Auto) 0.4, AbsoluteNeuts (auto) 2.8, Absolute Lymphs (auto) 1.99, Nucleated RBC % 0, Sodium 138, Potassium 4.2, Chloride 107, Carbon Dioxide 20.7 L, Anion Gap 11, BUN 8, Creatinine 0.76, EstimCreat Clear Calc 59.09, Est GFR (MDRD) Non-Af 82, BUN/Creatinine Ratio 10.1, Glucose 183 H, Calcium 8.5, Phosphorus 3.4, Magnesium 1.7 11/01/24 06:35: POC Glucose 177 H Micro: Microbiology 10/30/24 17:21 Stool Stool Occult Blood (MONY) - Final Occult Blood Positive Physical Exam Narrative GENERAL: cooperative HEENT: Atraumatic; normocephalic EYES; Anicteric, Normal Conjunctiva NECK; supple, normal thyroid, RESPIRATORY: Diminished to auscultation CARDIOVASCULAR: Regular S1 S2, GI: soft, normoactive bowel sounds, : No Renal angle tenderness; EXTREMITIES: No edema, no clubbing, MUSCULOSKELETAL: no muscle wasting NEURO: Awake; no lateralizing signs. SKIN: No Rash PSYCH; Flat affect Assessment & Plan Assessment/Plan (1) Weakness: (2) Anemia: (3) Acute lower GI bleeding: PLAN: Plan Patient is a 73-year-old lady with history of hemorrhoids who presented with bleeding per rectum 1. Acute GI bleed ? CT of the abdomen and pelvis obtained did show mild stool burden within the large bowel no inflammatory changes. Was also found to have umbilical hernia containing fecal loops of transverse colon no inflammatory changes to suggest strangulation. Patient admitted to regular nursing floor managed with IV fluids, bowel rest n.p.o. after midnight with consultation placed to GI. ?; patient scheduled to undergo colonoscopy as part of her Evaluation of GI bleed 2. Anemia Secondary to acute blood loss anemia from above monitoring H&H with plans to transfuse if patient hemoglobin falls below 7 or patient is deemed to be symptomatic 3. History of colon cancer ? Patient was treated with resection and has remained in remission since 2018 4. History of right breast CVA ? Patient was treated with bilateral mastectomy and chemo 5. Diabetes mellitus type II -patient's oral hypoglycemics held. Placed on long acting insulin, Accu-Cheks a.c. and at bedtime and covered with sliding scale insulin 6. Hypertension ? Blood pressure controlled, home medications continued with dose adjustment as needed 7. Dyslipidemia ?Patient is on statin therapy, continued at home dose 8. Class I obesity with BMI of 34.3 ? Weight loss advised 9. Osteoporosis ? Patient is on alendronate as outpatient plan is to resume on discharge 10. History of recent neck surgery ? On account of cervical spinal stenosis surgery was performed on 23 July 2024. Patient wasadmitted placed 11. DVT prophylaxis ? Avoided the use of chemoprophylaxis given patient presentation Time spent in the patient's overall evaluation,decision-making process, review of diagnostic data, adjustment of management, discussion with other providers, nursing nursing and ancillary staff involved in patient's care documentation, 38 minutes Charges/Coding Visit Charges Inpatient E&M: 94205 Subs Hosp L2 11/01/24 0751 Cosigner Signature (if applicable): CC: ~ Signed [facility]04-01-2025 Progress note Author Sushant Olmedo [facility] Note Date/Time October 31, 2024 9:08 am [facility] Medical Records Department [address] [place] [address] Progress Note - Hospitalist 10/31/24 0743 MR#: [id number] Acct: [id number] Name: ORION SORENSEN Rep #:[id number] : 1950 73 From: Sushant Olmedo MD PCP: ROSENDO Perea Status:AD M IN Location: [facility] [id number] Reason for Visit Reason for Visit: Diagnoses Anemia, unspecified (10/30/24) Gastrointestinal hemorrhage, unspecified (10/30/24) Weakness (10/30/24) Subjective Subjective Patient is a 73-year-old lady with history of hemorrhoids, history of colon cancer status post resection who presented with bleeding per rectum Objective Data Objective Data Vital Signs: Vital Signs Temp Pulse Resp BP Pulse Ox O2 Del Method 98.2 F 72 16 138/65 H 95 Room Air 10/31/24 04:18 10/31/24 04:18 10/31/24 04:18 10/31/24 04:18 10/31/24 04:18 10/31/24 04:18 Oxygen Delivery Method Room Air Weight: 82.3 kg Body Mass Index (BMI) 34.2 Intake & Output: Intake and Output for Last 24 Hours 10/29/24 10/30/24 10/31/24 23:59 23:59 23:59 Intake Total 110 / 410 1300 / 1300 Balance 110 / 410 1300 / 1300 Lab / Micro Data 10/31/24 06:23 10/31/24 06:23 Labs: Laboratory Results - last 24 hr 10/30/24 17:18: WBC 5.9, RBC 3.27 L, Hgb 9.7 L, Hct 28.6 L, MCV 87.5, MCH 29.7, MCHC 33.9, RDW Std Deviation 48.5 H, RDW Coeff of Miriam 15.3 H, Plt Count 276, MPV8.1, Immature Gran % (Auto) 0.500, Neut % (Auto) 52.6, Lymph % (Auto) 35.5, [place]% (Auto) 8.3, Eos % (Auto) 2.2, Baso % (Auto) 0.9, Absolute Neuts (auto) 3.1, Absolute Lymphs (auto) 2.09, Nucleated RBC % 0, Sodium 135, Potassium 4.0, Chloride 99, Carbon Dioxide 21.5, Anion Gap 14, BUN 15, Creatinine 0.93, Estim Creat Clear Calc 52.11, Est GFR (MDRD) Non-Af 64, BUN/Creatinine Ratio 15.7, Glucose 193 H, Lactic Acid 1.5, Calcium 9.3 10/30/24 18:17: Urine Color Straw, Urine Clarity Clear, Urine pH 6.5, Ur Specific Collins 1.010, Urine Protein 30 H, Urine Glucose (UA) Normal, Urine Ketones Negative, Urine Occult Blood 25 H, Urine Nitrite Negative, Urine Bilirubin Negative, Urine Urobilinogen Normal, Ur Leukocyte Esterase 25 H, UrineRBC 0-5 SEEN, Urine WBC 0- 5 SEEN, Ur Squamous Epith Cells 0-5 SEEN, Urine Bacteria 0 SEEN, Urine Mucus 0 SEEN 10/30/24 22:44: Hgb 9.2 L, Hct 27.7 L 10/31/24 02:29: Hgb 8.9 L, Hct 26.6 L 10/31/24 06:23: WBC 5.0, RBC 3.21 L, Hgb 9.3 L, Hct 27.9 L, MCV 86.9, MCH 29.0, MCHC 33.3, RDW Std Deviation 48.9 H, RDW Coeff of Miriam 15.4 H, Plt Count 250, MPV8.2, Immature Gran % (Auto) 0.400, Neut % (Auto) 45.2 L, Lymph % (Auto) 41.9 H, [place] % (Auto) 8.5, Eos % (Auto) 3.4, Baso % (Auto) 0.6, Absolute Neuts (auto) 2.3, Absolute Lymphs (auto) 2.11, Nucleated RBC % 0, PT 15.8 H, INR 1.2, APTT 28.9, Sodium 139, Potassium 4.3, Chloride 104, Carbon Dioxide 24.0, Anion Gap 11, BUN 11, Creatinine 0.88, Estim Creat Clear Calc 53.72, Est GFR (MDRD) Non-Af68, BUN/Creatinine Ratio 12.3, Glucose 125 H, Hemoglobin A1c 7.5, Calcium 9.2, Total Bilirubin 0.34, AST 33 H, ALT 27, Alkaline Phosphatase 66, Total Protein 6.8, Albumin 3.6, Globulin 3.2, Albumin/Globulin Ratio 1.1 Micro: Microbiology 10/30/24 17:21 Stool Stool Occult Blood (MONY) - Final Occult Blood Positive Radiography Diagnostic Testing: Radiology Impression Abdomen/Pelvis CT 10/30/24 17:08 IMPRESSION: Mild stool burden within the large bowel. No inflammatory changes of the bowel loops. Umbilical hernia containing a focal loop of transverse colon, no inflammatory changes to suggest strangulation. [facility] Exam Narrative GENERAL: cooperative HEENT: Atraumatic; normocephalic EYES; Anicteric, Normal Conjunctiva NECK; supple, normal thyroid, RESPIRATORY: Diminished to auscultation CARDIOVASCULAR: Regular S1 S2, GI: soft, normoactive bowel sounds, : No Renal angle tenderness; EXTREMITIES: No edema, no clubbing, MUSCULOSKELETAL: no muscle wasting NEURO: Awake; no lateralizing signs. SKIN: No Rash PSYCH; Flat affect Assessment & Plan Assessment/Plan (1) Weakness: (2) Anemia: (3) Acute lower GI bleeding: PLAN: Plan Patient is a 73-year-old lady with history of hemorrhoids who presented with bleeding per rectum 1. Acute GI bleed ? CT of the abdomen and pelvis obtained did show mild stool burden within the large bowel no inflammatory changes. Was also found to have umbilical hernia containing fecal loops of transverse colon no inflammatory changes to suggest strangulation. Patient admitted to regular nursing floor managed with IV fluids, bowel rest n.p.o. after midnight with consultation placed to GI. 2. Anemia Secondary to acute blood loss anemia from above monitoring H&H with plans to transfuse if patient hemoglobin falls below 7 or patient is deemed to be symptomatic 3. History of colon cancer ? Patient was treated with resection and has remained in remission since 2018 4. History of right breast CVA ? Patient was treated with bilateral mastectomy and chemo 5. Diabetes mellitus type II -patient's oral hypoglycemics held. Placed on long acting insulin, Accu-Cheks a.c. and at bedtime and covered with sliding scale insulin 6. Hypertension ? Blood pressure controlled, home medications continued with dose adjustment as needed 7. Dyslipidemia ?Patient is on statin therapy, continued at home dose 8. Class I obesity with BMI of 34.3 ? Weight loss advised 9. Osteoporosis ? Patient is on alendronate as outpatient plan is to resume on discharge 10. History of recent neck surgery ? On account of cervical spinal stenosis surgery was performed on 8123 July 2024. Patient was admitted placed 11. DVT prophylaxis ? Avoided the use of chemoprophylaxis given patient presentation Time spent in the patient's overall evaluation,decision-making process, review of diagnostic data, adjustment of management, discussion with other providers, nursing nursing and ancillary staff involved in patient's care documentation, 52minutes Advance planning; did discuss with the patient regarding advanced directives as well as CODE STATUS. Did explain the various scenarios involved ( FULL CODE,DNR CCA, DNR CCA with no intubation, and DNR CC and what each meant) patient elected to be DNR CCA no intubation. Order was placed. Time spent on discussion 18 minutes. Charges/Coding Multi Select Codes Visit Charges Visit Charges: 11083 Subs Hosp L3 Hospitalists' Procedures Procedures: 08684 Advncd Care Plan 30 Min 10/31/24 0908 <Electronically signed by Sushant Olmedo MD> Cosigner Signature (if applicable): CC: ~ Signed [facility] Work Phone: 1(732) 923-839904-01-2025 Progress note [facility] Medical Records Department [address] [place] [address] Progress Note - Hospitalist 10/31/24 0743 MR#: [id number] Acct: [id number] Name: ORION SORENSEN Rep #:[id number] : 1950 73 From: Sushant Olmedo MD PCP: ROSENDO Perea Status:AD M IN Location: [place] [address] Reason for Visit Reason for Visit: Diagnoses Anemia, unspecified (10/30/24) Gastrointestinal hemorrhage, unspecified (10/30/24) Weakness (10/30/24) Subjective Subjective Patient is a 73-year-old lady with history of hemorrhoids, history of colon cancer status post resection who presented with bleeding per rectum Objective Data Objective Data Vital Signs: Vital Signs Temp Pulse Resp BP Pulse Ox O2 Del Method 98.2 F 72 16 138/65 H 95 Room Air 10/31/24 04:18 10/31/24 04:18 10/31/24 04:18 10/31/24 04:18 10/31/24 04:18 10/31/24 04:18 Oxygen Delivery Method Room Air Weight: 82.3 kg Body Mass Index (BMI) 34.2 Intake & Output: Intake and Output for Last 24 Hours 10/29/24 10/30/24 10/31/24 23:59 23:59 23:59 Intake Total 110 / 410 1300 / 1300 Balance 110 / 410 1300 / 1300 Lab / Micro Data 10/31/24 06:23 10/31/24 06:23 Labs: Laboratory Results - last 24 hr 10/30/24 17:18: WBC 5.9, RBC 3.27 L, Hgb 9.7 L, Hct 28.6 L, MCV 87.5, MCH 29.7, MCHC 33.9, RDW Std Deviation 48.5 H, RDW Coeff of Miriam 15.3 H, Plt Count 276, MPV8.1, Immature Gran % (Auto) 0.500, Neut% (Auto) 52.6, Lymph % (Auto) 35.5, [place]% (Auto) 8.3, Eos % (Auto) 2.2, Baso % (Auto) 0.9, AbsoluteNeuts (auto) 3.1, Absolute Lymphs (auto) 2.09, Nucleated RBC % 0, Sodium 135, Potassium 4.0, Chloride 99, Carbon Dioxide 21.5, Anion Gap 14, BUN 15, Creatinine 0.93, Estim Creat Clear Calc 52.11, EstGFR (MDRD) Non-Af 64, BUN/Creatinine Ratio 15.7, Glucose 193 H, Lactic Acid 1.5, Calcium 9.3 10/30/24 18:17: Urine Color Straw, Urine Clarity Clear, Urine pH 6.5, Ur Specific Collins 1.010, Urine Protein 30 H, Urine Glucose (UA) Normal, Urine Ketones Negative, Urine Occult Blood 25 H, Urine Nitrite Negative, Urine Bilirubin Negative, Urine Urobilinogen Normal, Ur Leukocyte Esterase 25 H, Ur ineRBC 0-5 SEEN, Urine WBC 0-5 SEEN, Ur Squamous Epith Cells 0-5 SEEN, Urine Bacteria 0 SEEN, UrineMucus 0 SEEN 10/30/24 22:44: Hgb 9.2 L, Hct 27.7 L 10/31/24 02:29: Hgb 8.9 L, Hct 26.6 L 10/31/24 06:23: WBC 5.0, RBC 3.21 L, Hgb 9.3 L, Hct 27.9 L, MCV 86.9, MCH 29.0, MCHC 33.3, RDW Std Deviation 48.9 H, RDW Coeff of Miriam 15.4 H, Plt Count 250, MPV8.2, Immature Gran % (Auto) 0.400, Neut% (Auto) 45.2 L, Lymph % (Auto) 41.9 H, [place] % (Auto) 8.5, Eos % (Auto) 3.4, Baso % (Auto) 0.6, Absolute Neuts (auto) 2.3, Absolute Lymphs (auto) 2.11, Nucleated RBC % 0, PT 15.8 H, INR 1.2, APTT 28.9, Sodium 139, Potassium 4.3, Chloride 104, Carbon Dioxide 24.0, Anion Gap 11, BUN 11, Creatinine 0.88, Estim Creat Clear Calc 53.72, Est GFR (MDRD) Non- Af68, BUN/Creatinine Ratio 12.3, Glucose 125 H,Hemoglobin A1c 7.5, Calcium 9.2, Total Bilirubin 0.34, AST 33 H, ALT 27, Alkaline Phosphatase 66, Total Protein 6.8, Albumin 3.6, Globulin 3.2, Albumin/Globulin Ratio 1.1 Micro: Microbiology 10/30/24 17:21 Stool Stool Occult Blood (MONY) - Final Occult Blood Positive Radiography Diagnostic Testing: Radiology Impression Abdomen/Pelvis CT 10/30/24 17:08 IMPRESSION: Mild stool burden within the large bowel. No inflammatory changes of the bowel loops. Umbilical hernia containing a focal loop of transverse colon, no inflammatory changes to suggest strangulation. [facility] Physical Exam Narrative GENERAL: cooperative HEENT: Atraumatic; normocephalic EYES; Anicteric, Normal Conjunctiva NECK; supple, normal thyroid, RESPIRATORY: Diminished to auscultation CARDIOVASCULAR: Regular S1 S2, GI: soft, normoactive bowel sounds, : No Renal angle tenderness; EXTREMITIES: No edema, no clubbing, MUSCULOSKELETAL: no muscle wasting NEURO: Awake; no lateralizing signs. SKIN: No Rash PSYCH; Flat affect Assessment & Plan Assessment/Plan (1) Weakness: (2) Anemia: (3) Acute lower GI bleeding: PLAN: Plan Patient is a 73-year-old lady with history of hemorrhoids who presented with bleeding per rectum 1. Acute GI bleed ? CT of the abdomen and pelvis obtained did show mild stool burden within the large bowel no inflammatory changes. Was also found to have umbilical hernia containing fecal loops of transverse colon no inflammatory changes to suggest strangulation. Patient admitted to regular nursing floor managed with IV fluids, bowel rest n.p.o. after midnight with consultation placed to GI. 2. Anemia Secondary to acute blood loss anemia from above monitoring H&H with plans to transfuse if patient hemoglobin falls below 7 or patient is deemed to be symptomatic 3. History of colon cancer ? Patient was treated with resection and has remained in remission since 2018 4. History of right breast CVA ? Patient was treated with bilateral mastectomy and chemo 5. Diabetes mellitus type II -patient's oral hypoglycemics held. Placed on long acting insulin, Accu-Cheks a.c. and at bedtime and covered with sliding scale insulin 6. Hypertension ? Blood pressure controlled, home medications continued with dose adjustment as needed 7. Dyslipidemia ?Patient is on statin therapy, continued at home dose 8. Class I obesity with BMI of 34.3 ? Weight loss advised 9. Osteoporosis ? Patient is on alendronate as outpatient plan is to resume on discharge 10. History of recent neck surgery ? On account of cervical spinal stenosis surgery was performed on 23 July 2024. Patient wasadmitted placed 11. DVT prophylaxis ? Avoided the use of chemoprophylaxis given patient presentation Time spent in the patient's overall evaluation,decision-making process, review of diagnostic data, adjustment of management, discussion with other providers, nursing nursing and ancillary staff involved in patient's care documentation, 52minutes Advance planning; did discuss with the patient regarding advanced directives as well as CODE STATUS. Did explain the various scenarios involved ( FULL CODE,DNR CCA, DNR CCA with no intubation, and DNR CC and what each meant) patient elected to be DNR CCA no intubation. Order was placed. Time spent on discussion 18 minutes. Charges/Coding Multi Select Codes Visit Charges Visit Charges: 26007 Subs [place] [address] Hospitalists' Procedures Procedures: 02267 Advncd Care Plan 30 Min 10/31/24 0908 Cosigner Signature (if applicable): CC: ~ Signed [facility]04-01-2025 Discharge summary Author Bruce Mcclain [facility] Note Date/Time October 30, 2024 11: 59pm [facility] Medical Records Department [address] [place] [address] Emergency Department Summary 10/30/24 MR#: [id number] Acct: [id number] Name: ORION SORENSEN Rep #:[id number] : 1950 73 From: Bruce Mcclain DO PCP: ROSENDO Perea Status:AD M IN Location: [facility] MU169-3 HPI HPI - GI History of Present Illness Chief Complaint: GI Bleed Detail of Chief Complaint: Rectal bleeding Informant: patient and family Narrative Narrative: Patient presents to the emergency department complaint of rectal bleeding for about a month off-and-on. She has history of hemorrhoids. Patient also startedwith some abdominal pain yesterday in the left lower abdomen. She does have history of prior diverticulitis. She has history of prior colon cancer with partial bowel resection. Patient denies fevers or chills or sweats. She deniesvomiting. She is not anticoagulated PFSH PFS Home Medications ?Medication ?Instructions ?Recorded ?Last Taken ?Type alendronate 70 mg tablet (Fosamax) 70 mg PO QWEEK 12/17 Unknown History aspirin 81 mg tablet,delayed 81 mg PO DAILY HEART 12/17 Unknown History release (Aspir-Low) calcium 600 mg (as 1 ea PO BID SUPPLEMENT 09/06 Unknown History carbonate)-vitamin D3 20 mcg (800 unit) tablet (Caltrate with Vitamin D3) hydrocodone-acetaminophen 5-325mg 1 tab PO Q6H PRN PRN Pain 09/06/17 Unknown History 5mg-325mg insulin aspart U-100 100 unit/mL 15 units subcut TIDCM DIABETES 09/06/17 Unknown History (3 mL) subcutaneous pen (Novolog FlexPen U-100 Insulin aspart) insulin glargine 100 unit/mL (3 30 units subcut QHS DI ABETES 09/06/17 Unknown History mL) subcutaneous pen (Lantus Solostar U-100 Insulin) naproxen sodium 220 mg tablet 220 mg PO Q8H PRN PRN Pa in 09/06/17 Unknown History (Aleve) omeprazole 40 mg capsule,delayed 40 mg PO DAILY REFLUX 09/06/17 09/13/17 06:00 History release simvastatin 10 mg tablet (Zocor) 10 mg PO QHS CHOLESTE ROL 09/06/17 Unknown History solifenacin 10 mg tablet (Vesicare) 10 mg PO DAILY JOY DDER 09/06/17 Unknown History tizanidine 2 mg tablet 2 mg PO Q8H PRN Pain 8 Unknown History valsartan 40 mg tablet (Diovan) 40 mg PO DAILY BP 12/1709/13/17 06:00 History cephalexin 500 mg capsule 500 mg PO Q12 #20 caps 09/14 Unknown Rx hydrocodone-acetaminophen 5-325mg 1 ea PO Q6H PRN PRN Mod-Severe 09/14/17 Unknown Rx 5mg-325mg Pain (4-10/10) 4 days #15 ta bs Allergy/AdvReac Type Severity Reaction Status Date / Time celecoxib (From Celebrex) Allergy Hives Verified 10/30/24 16:49 ramipril Allergy Hives Verified 10/30/24 16:49 rofecoxib (From Vioxx) Allergy Hives Verified 10/30/24 16:49 letrozole (From Femara) AdvReac Pain in Verified 10/30/24 16:49 joints Social History Smoking Status: Former smoker ROS ROS ED Review of Systems ROS Unobtainable: other Constitutional Constitutional ED: Reports lethargy; Denies chills, fever(s), sweats or weight loss Eyes Eyes: Denies blurry vision, change in vision or diplopia ENT ENT ED: Denies rhinorrhea or sore throat Cardiovascular Cardiovascular: Denies chest pain, orthopnea or racing heartbeat Respiratory/Chest Respiratory/Chest: Denies cough, dyspnea, dyspnea on exertion, orthopnea or sputum Gastrointestinal Gastrointestinal: Reports abdominal pain and other Details: Rectal bleeding ; Denies diarrhea, nausea or vomiting Genitourinary Genitourinary ED: Denies dysuria, hematuria or urinary frequency Musculoskeletal Musculoskeletal: Denies arthralgias, back pain, myalgias or neck pain Integumentary Denies abscess, Abrasions or rash Neurologic Neurologic: Denies headache(s) or weakness Psychiatric Psychiatric: Denies anxiety, depression or suicidal thoughts Endocrine Endocrinology: Denies polydipsia, polyphagia or polyuria Hematologic/Lymphatic Hematologic/Lymphatic: Denies easy bleeding, easy bruising or lymphadenopathy Allergic/Immunologic Allergic/Immunologic ED: Denies mouth swelling, tongue swelling or urticaria EXAM Physical Exam Const Vital Signs: 10/30/24 16:49 10/30/24 17:49 10/30/24 20:00 Temperature 96.3 F L Temperature Source Temporal Pulse Rate 84 Pulse Rate [Lying] 72 Pulse Rate [Sitting (for 1 minute prior to obtaining)] 73 Pulse Rate [Standing (for 1 minute prior to obtaining)] 74 Respiratory Rate 15 Blood Pressure 151/103 H 140/70 H Blood Pressure [Lying] 175/74 H Blood Pressure [Sitting (for 1 minute prior to obtaining)] 169/71 H Blood Pressure [Standing (for 1 minute prior to obtaining)] 150/76 H Blood Pressure Mean 119 93 Blood Pressure Mean [Lying] 107 Blood Pressure Mean [Sitting (for 1 minute prior to obtaining)] 103 Blood Pressure Mean [Standing (for 1 minute prior to obtaining)] 100 Pulse Ox 97 Oxygen Delivery Method Room Air Positive well nourished and well developed General Appearance ED: well developed and NAD HEENT Reports TM's clear and moist mucous membranes normocephalic and atraumatic; Negative for trauma or tenderness Tympanic Membrane ED: Yes TM's clear Eyes PERRL and EOMs intact bilaterally General Eye ED: Negative for pale conjunctiva or scleral icterus Neck no lymphadenopathy, supple and no JVD General: Negative for tenderness Chest Wall inspection of chest normal and palpation of chest normal Chest: Negative for tenderness Resp normal respiratory effort and clear to auscultation bilaterally Effort and Inspection: Negative for respiratory distress or pain with movement Auscultation: Negative for rhonchi, wheezes or diminished lung sounds Cardio regular rate, regular rhythm, S1 normal heart sound, S2 normal heart sound and no murmurs Peripheral Pulses: pulses 2+ throughout GI normal to inspection, nondistended, normoactive bowel sounds, soft to palpation,non-tender, non-distended and no masses GI Narrative: Rectal exam performed. No obvious hemorrhoids noted. No source of bleeding noted. There is no fissures. On digital rectal exam there was brown stool. Noimpaction noted Back/Spine no CVA tenderness and no thoracic nor lumbar tenderness Extremity normal to inspection General Extremety ED: Negative for edema General Extremity: Negative for edema Neuro oriented x3, CN's II-XII intact bilaterally, no sensory deficits noted and gait normal Sensorium / Orientation: awake, alert, oriented to person, oriented to place andoriented to time Motor Exam: strength 5/5 throughout and strength abnormal Psych mental status grossly normal Skin no rashes or lesions noted and no wounds MDM MDM MDM Narrative Medical decision making narrative: Patient presents to the emergency department with rectal bleeding for over a week. She had some left lower quadrant abdominal pain yesterday. History of diverticulitis. Patient clinically looks well. IV line established. CBC with differential obtained showed white count 5.9 with hemoglobin 9.7 and platelet count of 276. BUN 15 and creatinine 0.93. Urinalysis normal. CT scan of the abdomen pelvis with IV contrast essentially unremarkable. I did orthostatic vital signs and patient's systolic blood pressure did drop by 25 points. Heart rate really did not increase. Patient's daughter was able to pull up her lab report from when she had her last visit to [facility] on the and at that time her hemoglobin was 11.5. Patient is dropped 2 g of hemoglobin essentially in last 5 days. Will discuss case with hospitalist to evaluate for admission. Will discuss with GI as well. Lab Data Attestation: I reviewed the patient's lab results. Labs: Laboratory Results - last 24 hr 10/30/24 10/30/24 17:18 18:17 WBC 5.9 RBC 3.27 L Hgb 9.7 L Hct 28.6 L MCV 87.5 MCH 29.7 MCHC 33.9 RDW Std Deviation 48.5 H RDW Coeff of Miriam 15.3 H Plt Count 276 MPV 8.1 Immature Gran % (Auto) 0.500 Neut % (Auto) 52.6 Lymph % (Auto) 35.5 [place] % (Auto) 8.3 Eos % (Auto) 2.2 Baso % (Auto) 0.9 Absolute Neuts (auto) 3.1 Absolute Lymphs (auto) 2.09 Nucleated RBC % 0 Sodium 135 Potassium 4.0 Chloride 99 Carbon Dioxide 21.5 Anion Gap 14 BUN 15 Creatinine 0.93 Estim Creat Clear Calc 52.11 Est GFR (MDRD) Non-Af 64 BUN/Creatinine Ratio 15.7 Glucose 193 H Lactic Acid 1.5 Calcium 9.3 Urine Color Straw Urine Clarity Clear Urine pH 6.5 Ur Specific Collins 1.010 Urine Protein 30 H Urine Glucose (UA) Normal Urine Ketones Negative Urine Occult Blood 25 H Urine Nitrite Negative Urine Bilirubin Negative Urine Urobilinogen Normal Ur Leukocyte Esterase 25 H Urine RBC 0-5 SEEN Urine WBC 0-5 SEEN Ur Squamous Epith Cells 0-5 SEEN Urine Bacteria 0 SEEN Urine Mucus 0 SEEN Radiography Diagnostic Testing: Clinical Impression(s) from Imaging Studies Abdomen/Pelvis CT 10/30/24 17:08 IMPRESSION: Mild stool burden within the large bowel. No inflammatory changes of the bowel loops. Umbilical hernia containing a focal loop of transverse colon, no inflammatory changes to suggest strangulation. Reading Location: [facility] Discharge Plan Triage Chief Complaint: GI Bleed ED Provider: Bruce Mcclain Dx/Rx/DC Orders Clinical Impression: Acute lower GI bleeding, Anemia, Weakness Prescriptions: No Action alendronate [Fosamax] 70 MG tablet 70 mg PO QWEEK simvastatin [Zocor] 10 MG tablet 10 mg PO QHS omeprazole 40 MG capsule,delayed release(DR/EC) 40 mg PO DAILY aspirin [Aspir-Low] 81 MG tablet,delayed release (DR/EC) 81 mg PO DAILY Patient Comments: WAS TOLD TO STOP 3 DAYS BEFORE valsartan [Diovan] 40 MG tablet 40 mg PO DAILY insulin aspart U-100 [Novolog FlexPen U-100 Insulin] 100 UNITS/ML insulin pen 15 units subcut TIDCM solifenacin [Vesicare] 10 MG tablet 10 mg PO DAILY insulin glargine [Lantus Solostar U-100 Insulin] 100 UNITS/ML insulin pen 30 units subcut QHS calcium carbonate-vitamin D3 [Caltrate with Vitamin D3] 1 EACH tablet 1 ea PO BID tizanidine 2 MG tablet 2 mg PO Q8H PRN (Reason: Pain) hydrocodone-acetaminophen 1 TABLET tablet 1 tab PO Q6H PRN PRN (Reason: Pain) naproxen sodium [Aleve] 220 MG tablet 220 mg PO Q8H PRN PRN (Reason: Pain) Patient Comments: WAS TOLD TO ASK ABOUT STOPPING cephalexin 500 MG capsule 500 mg PO Q12 Qty: 20 0RF hydrocodone-acetaminophen 1 EACH tablet 1 ea PO Q6H PRN PRN (Reason: Mod-Severe Pain (4-10/10)) 4 Days Qty: 15 0RF Primary Care Provider: Terrie Goldstein Referrals: Ivonne Avila MD [Non-Staff] - Print Language: Slovak Disposition Disposition: Acute Care Hospital [facility] What to do if you have Problems For any increased pain, shortness of breath, bleeding, nausea or vomiting, chestpain, or any unexpected problems, contact your Primary Care Provider. Call [facility] ([phone]) or report to the closest Emergency Room. Call 911 if necessary. 10/30/24 6506 <Electronically signed by Bruce Mcclain DO> Cosigner Signature (if applicable): CC: ROSENDO Goldstein ~ Signed [facility] Work Phone: [phone]) 344-348103-31-2025 Discharge summary [facility] Medical Records Department [address] [place] [address] Emergency Department Summary 10/30/24 MR#: [id number] Acct: [id number] Name: ORION SORENSEN Rep #:[id number] : 1950 73 From: Bruce Mcclain DO PCP: ROSENDO Perea Status:AD M IN Location: [place] CC248-5 HPI HPI - GI History of Present Illness Chief Complaint: GI Bleed Detail of Chief Complaint: Rectal bleeding Informant: patient and family Narrative Narrative: Patient presents to the emergency department complaint of rectal bleeding for about a month off-and-on. She has history of hemorrhoids. Patient also startedwith some abdominal pain yesterday in the left lower abdomen. She does have history of prior diverticulitis. She has history of prior colon cancer with partial bowel resection. Patient denies fevers or chills or sweats. She deniesvomiting. Sheis not anticoagulated PFSH PFS Home Medications ?Medication ?Instructions ?Recorded ?Last Taken ?Type alendronate 70 mg tablet (Fosamax) 70 mg PO QWEEK 12/17 Unknown History aspirin 81 mg tablet,delayed 81 mg PO DAILY HEART 12/17 Unknown History release (Aspir-Low) calcium 600 mg (as 1 ea PO BID SUPPLEMENT 09/06 Unknown History carbonate)-vitamin D3 20 mcg (800 unit) tablet (Caltrate with Vitamin D3) hydrocodone-acetaminophen 5-325mg 1 tab PO Q6H PRN PRN Pain 09/06/17 Unknown History 5mg-325mg insulin aspart U-100 100 unit/mL 15 units subcut TIDCM DIABETES 09/06/17 Unknown History (3 mL) subcutaneous pen (Novolog FlexPen U-100 Insulin aspart) insulin glargine 100 unit/mL (3 30 units subcut QHS DI ABETES 09/06/17 Unknown History mL) subcutaneous pen (Lantus Solostar U-100 Insulin) naproxen sodium 220 mg tablet 220 mg PO Q8H PRN PRN Pa in 09/06/17 Unknown History (Aleve) omeprazole 40 mg capsule,delayed 40 mg PO DAILY REFLUX 09/06/17 09/13/17 06:00 History release simvastatin 10 mg tablet (Zocor) 10 mg PO QHS CHOLESTE ROL 09/06/17 Unknown History solifenacin 10 mg tablet (Vesicare) 10 mg PO DAILY JOY DDER 09/06/17 Unknown History tizanidine 2 mg tablet 2 mg PO Q8H PRN Pain 8 Unknown History valsartan 40 mg tablet (Diovan) 40 mg PO DAILY BP 02/12/1709/13/17 06:00 History cephalexin 500 mg capsule 500 mg PO Q12 #20 caps 09/14 Unknown Rx hydrocodone-acetaminophen 5-325mg 1 ea PO Q6H PRN PRN Mod-Severe 09/14/17 Unknown Rx 5mg-325mg Pain (4-10/10) 4 days #15 ta bs Allergy/AdvReac Type Severity Reaction Status Date / Time celecoxib (From Celebrex) Allergy Hives Verified 10/30/24 16:49 ramipril Allergy Hives Verified 10/30/24 16:49 rofecoxib (From Vioxx) Allergy Hives Verified 10/30/24 16:49 letrozole (From Femara) AdvReac Pain in Verified 10/30/24 16:49 joints Social History Smoking Status: Former smoker ROS ROS ED Review of Systems ROS Unobtainable: other Constitutional Constitutional ED: Reports lethargy; Denies chills, fever(s), sweats or weight loss Eyes Eyes: Denies blurry vision, change in vision or diplopia ENT ENT ED: Denies rhinorrhea or sore throat Cardiovascular Cardiovascular: Denies chest pain, orthopnea or racing heartbeat Respiratory/Chest Respiratory/Chest: Denies cough, dyspnea, dyspnea on exertion, orthopnea or sputum Gastrointestinal Gastrointestinal: Reports abdominal pain and other Details: Rectal bleeding ; Denies diarrhea, nausea or vomiting Genitourinary Genitourinary ED: Denies dysuria, hematuria or urinary frequency Musculoskeletal Musculoskeletal: Denies arthralgias, back pain, myalgias or neck pain Integumentary Denies abscess, Abrasions or rash Neurologic Neurologic: Denies headache(s) or weakness Psychiatric Psychiatric: Denies anxiety, depression or suicidal thoughts Endocrine Endocrinology: Denies polydipsia, polyphagia or polyuria Hematologic/Lymphatic Hematologic/Lymphatic: Denies easy bleeding, easy bruising or lymphadenopathy Allergic/Immunologic Allergic/Immunologic ED: Denies mouth swelling, tongue swelling or urticaria EXAM Physical Exam Const Vital Signs: 10/30/24 16:49 10/30/24 17:49 10/30/24 20:00 Temperature 96.3 F L Temperature Source Temporal Pulse Rate 84 Pulse Rate [Lying] 72 Pulse Rate [Sitting (for 1 minute prior to obtaining)] 73 Pulse Rate [Standing (for 1 minute prior to obtaining)] 74 Respiratory Rate 15 Blood Pressure 151/103 H 140/70 H Blood Pressure [Lying] 175/74 H Blood Pressure [Sitting (for 1 minute prior to obtaining)] 169/71 H Blood Pressure [Standing (for 1 minute prior to obtaining)] 150/76 H Blood Pressure Mean 119 93 Blood Pressure Mean [Lying] 107 Blood Pressure Mean [Sitting (for 1 minute prior to obtaining)] 103 Blood Pressure Mean [Standing (for 1 minute prior to obtaining)] 100 Pulse Ox 97 Oxygen Delivery Method Room Air Positive well nourished and well developed General Appearance ED: well developed and NAD HEENT Reports TM's clear and moist mucous membranes normocephalic and atraumatic; Negative for trauma or tenderness Tympanic Membrane ED: Yes TM's clear Eyes PERRL and EOMs intact bilaterally General Eye ED: Negative for pale conjunctiva or scleral icterus Neck no lymphadenopathy, supple and no JVD General: Negative for tenderness Chest Wall inspection of chest normal and palpation of chest normal Chest: Negative for tenderness Resp normal respiratory effort and clear to auscultation bilaterally Effort and Inspection: Negative for respiratory distress or pain with movement Auscultation: Negative for rhonchi, wheezes or diminished lung sounds Cardio regular rate, regular rhythm, S1 normal heart sound, S2 normal heart sound and no murmurs Peripheral Pulses: pulses 2+ throughout GI normal to inspection, nondistended, normoactive bowel sounds, soft to palpation,non-tender, non-distended and no masses GI Narrative: Rectal exam performed. No obvious hemorrhoids noted. No source of bleeding noted. There is no fissures. On digital rectal exam there was brown stool. Noimpaction noted Back/Spine no CVA tenderness and no thoracic nor lumbar tenderness Extremity normal to inspection General Extremety ED: Negative for edema General Extremity: Negative for edema Neuro oriented x3, CN's II-XII intact bilaterally, no sensory deficits noted and gait normal Sensorium / Orientation: awake, alert, oriented to person, oriented to place andoriented to time Motor Exam: strength 5/5 throughout and strength abnormal Psych mental status grossly normal Skin no rashes or lesions noted and no wounds MDM MDM MDM Narrative Medical decision making narrative: Patient presents to the emergency department with rectal bleeding for over a week. She had some left lower quadrant abdominal pain yesterday. History of diverticulitis. Patient clinically looks well.IV line established. CBC with differential obtained showed white count 5.9 with hemoglobin 9.7 and platelet count of 276. BUN 15 and creatinine 0.93. Urinalysis normal. CT scan of the abdomen pelvis with IV contrast essentially unremarkable. I did orthostatic vital signs and patient's systolic blood pressure did drop by 25 points. Heart rate really did not increase. Patient's daughter was able topull up her lab report from when she had her last visit to [facility] on the and at that time her hemoglobin was 11.5. Patient is dropped 2 g of hemoglobin essentially in last 5 days. Will discuss case with hospitalist to evaluate for admission. Will discuss with GI as well. Lab Data Attestation: I reviewed the patient's lab results. Labs: Laboratory Results - last 24 hr 10/30/24 10/30/24 17:18 18:17 WBC 5.9 RBC 3.27 L Hgb 9.7 L Hct 28.6 L MCV 87.5 MCH 29.7 MCHC 33.9 RDW Std Deviation 48.5 H RDW Coeff of Miriam 15.3 H Plt Count 276 MPV 8.1 Immature Gran % (Auto) 0.500 Neut % (Auto) 52.6 Lymph % (Auto) 35.5 [place] % (Auto) 8.3 Eos % (Auto) 2.2 Baso % (Auto) 0.9 Absolute Neuts (auto) 3.1 Absolute Lymphs (auto) 2.09 Nucleated RBC % 0 Sodium 135 Potassium 4.0 Chloride 99 Carbon Dioxide 21.5 Anion Gap 14 BUN 15 Creatinine 0.93 Estim Creat Clear Calc 52.11 Est GFR (MDRD) Non-Af 64 BUN/Creatinine Ratio 15.7 Glucose 193 H Lactic Acid 1.5 Calcium 9.3 Urine Color Straw Urine Clarity Clear Urine pH 6.5 Ur Specific Collins 1.010 Urine Protein 30 H Urine Glucose (UA) Normal Urine Ketones Negative Urine Occult Blood 25 H Urine Nitrite Negative Urine Bilirubin Negative Urine Urobilinogen Normal Ur Leukocyte Esterase 25 H Urine RBC 0-5 SEEN Urine WBC 0-5 SEEN Ur Squamous Epith Cells 0-5 SEEN Urine Bacteria 0 SEEN Urine Mucus 0 SEEN Radiography Diagnostic Testing: Clinical Impression(s) from Imaging Studies Abdomen/Pelvis CT 10/30/24 17:08 IMPRESSION: Mild stool burden within the large bowel. No inflammatory changes of the bowel loops. Umbilical hernia containing a focal loop of transverse colon, no inflammatory changes to suggest strangulation. [facility] Triage Chief Complaint: GI Bleed ED Provider: Bruce Mcclain Dx/Rx/DC Orders Clinical Impression: Acute lower GI bleeding, Anemia, Weakness Prescriptions: No Action alendronate [Fosamax] 70 MG tablet 70 mg PO QWEEK simvastatin [Zocor] 10 MG tablet 10 mg PO QHS omeprazole 40 MG capsule,delayed release(DR/EC) 40 mg PO DAILY aspirin [Aspir-Low] 81 MG tablet,delayed release (DR/EC) 81 mg PO DAILY Patient Comments: WAS TOLD TO STOP 3 DAYS BEFORE valsartan [Diovan] 40 MG tablet 40 mg PO DAILY insulin aspart U-100 [Novolog FlexPen U-100 Insulin] 100 UNITS/ML insulin pen 15 units subcut TIDCM solifenacin [Vesicare] 10 MG tablet 10 mg PO DAILY insulin glargine [Lantus Solostar U-100 Insulin] 100 UNITS/ML insulin pen 30 units subcut QHS calcium carbonate-vitamin D3 [Caltrate with Vitamin D3] 1 EACH tablet 1 ea PO BID tizanidine 2 MG tablet 2 mg PO Q8H PRN (Reason: Pain) hydrocodone-acetaminophen 1 TABLET tablet 1 tab PO Q6H PRN PRN (Reason: Pain) naproxen sodium [Aleve] 220 MG tablet 220 mg PO Q8H PRN PRN (Reason: Pain) Patient Comments: WAS TOLD TO ASK ABOUT STOPPING cephalexin 500 MG capsule 500 mg PO Q12 Qty: 20 0RF hydrocodone-acetaminophen 1 EACH tablet 1 ea PO Q6H PRN PRN (Reason: Mod-Severe Pain (4-10/10)) 4 Days Qty: 15 0RF Primary Care Provider: Terrie Goldstein Referrals: Ivonne Avila MD [Non-Staff] - Print Language: Slovak Disposition Disposition: Acute Care Hospital [facility] What to do if you have Problems For any increased pain, shortness of breath, bleeding, nausea or vomiting, chestpain, or any unexpected problems, contact your Primary Care Provider. Call [facility] ([phone]) or report tothe closest Emergency Room. Call 911 if necessary. 10/30/24 8059 Cosigner Signature (if applicable): CC: RN PROGRESSIVE CARE-C Terrie Goldstein ~ Signed [facility]03-31-2025 Evaluation note* Diagnosis Onset Date Resolution Status Admit Date Acute lower GI bleeding acute M arch 2024 8:46pm Anemia acute October 30 8:46pm Weakness acute October 30 8:46pm [facility] Work Phone: 1([phone]) 337-853403-31-2025 Evaluation note* Diagnosis Onset Date Resolution Status Admit Date Anemia acute October 30 8:46pm Acute lower GI bleeding resolved M arch 2024 8:46pm Weakness resolved October 30 8:46pm Anemia acute November 16 9:41am 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, 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 9:41am Ambulatory dysfunction acute Ap ril 2024 9:59pm Fall at home acute November 20, 2024 9:59pm Generalized weakness acute Apri l 2024 9:59pm Hypoglycemia associated with type 2 diabetes mellitus acute November 012024 9:59pm Pneumonia acute November 20 9:59pm Respiratory insufficiency acute November 20, 2024 9:59pm Obesity (BMI 30-39.9) resolved Apr 2024 9:59pm 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 November 20, 2024 9:59pm History of lower GI bleeding inactiv e November 20, 2024 9:59pm [place] [facility] Work Phone: 1(599) 265-857503-31-2025 Evaluation note* Diagnosis Onset Date Resolution Status Admit Date Anemia acute October 30 8:46pm Acute lower GI bleeding resolved M arch 2024 8:46pm Weakness resolved October 30 8:46pm Anemia acute November 16 9:41am 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, 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 9:41am Ambulatory dysfunction acute Ap ril 2024 9:59pm Fall at home acute November 20, 2024 9:59pm Generalized weakness acute Apri l 2024 9:59pm Hypoglycemia associated with type 2 diabetes mellitus acute November 012024 9:59pm Pneumonia acute November 20 9:59pm Respiratory insufficiency acute November 20, 2024 9:59pm Obesity (BMI 30-39.9) resolved Apr 2024 9:59pm 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 November 20, 2024 9:59pm History of lower GI bleeding inactiv e November 20, 2024 9:59pm Constipation acute December 28 9:50am [facility] Work Phone: [phone]) 550-299503-31-2025 History and physical note Author oJe Chance [facility] Note Date/Time October 30, 2024 8:4 6pm [facility] Medical Records Department [address] [place] [address] History & Physical Exam 10/30/242038 MR#: [id number] Acct: [id number] Name: ORION SORENSEN Rep #:[id number] : 1950 73 From: Joe Chance MD PCP: ROSENDO Perea Status:AD M IN Location: [facility] MI822-4 HPI - General General Date of Admission: 10/30/24 Date of Service: 10/30/24 Chief Complaint: Gastrointestinal bleeding HPI Narrative ORION SORENSEN, is a 73 F who presents to the emergency room with chief complaint of gastrointestinal bleeding. Onset of symptoms began approximately 1month ago on and off and became worse this past week. She states she was filling the toilet bowl with red blood with every bowel movement over the past week. She has a history of neck surgery done in July and is still wearing aneck brace at this time. Approximately a week ago she took heavy dose of THC and ended up in the emergency room at another facility at which time her hemoglobin was in the 11.5 range and is currently at 9.7. Patient denies any chest pain, shortness of breath, fevers or chills however she does have a decreased appetite and tenderness over her left lower quadrant of the abdomen. Patient will be admitted and managed for GI bleed. [facility] Home Medications ?Medication ?Instructions ?Recorded ?Last Taken ?Type alendronate 70 mg tablet (Fosamax) 70 mg PO QWEEK 12/17 Unknown History aspirin 81 mg tablet,delayed 81 mg PO DAILY HEART 12/17 Unknown History release (Aspir-Low) calcium 600 mg (as 1 ea PO BID SUPPLEMENT 09/06 Unknown History carbonate)-vitamin D3 20 mcg (800 unit) tablet (Caltrate with Vitamin D3) hydrocodone-acetaminophen 5-325mg 1 tab PO Q6H PRN PRN Pain 09/06/17 Unknown History 5mg-325mg insulin aspart U-100 100 unit/mL 15 units subcut TIDCM DIABETES 09/06/17 Unknown History (3 mL) subcutaneous pen (Novolog FlexPen U-100 Insulin aspart) insulin glargine 100 unit/mL (3 30 units subcut QHS DI ABETES 09/06/17 Unknown History mL) subcutaneous pen (Lantus Solostar U-100 Insulin) naproxen sodium 220 mg tablet 220 mg PO Q8H PRN PRN Pa in 09/06/17 Unknown History (Aleve) omeprazole 40 mg capsule,delayed 40 mg PO DAILY REFLUX 09/06/17 09/13/17 06:00 History release simvastatin 10 mg tablet (Zocor) 10 mg PO QHS CHOLESTE ROL 09/06/17 Unknown History solifenacin 10 mg tablet (Vesicare) 10 mg PO DAILY JOY DDER 09/06/17 Unknown History tizanidine 2 mg tablet 2 mg PO Q8H PRN Pain 8 Unknown History valsartan 40 mg tablet (Diovan) 40 mg PO DAILY BP 12/1709/13/17 06:00 History cephalexin 500 mg capsule 500 mg PO Q12 #20 caps 09/14 Unknown Rx hydrocodone-acetaminophen 5-325mg 1 ea PO Q6H PRN PRN Mod-Severe 09/14/17 Unknown Rx 5mg-325mg Pain (4-10/10) 4 days #15 ta bs Allergy/AdvReac Type Severity Reaction Status Date / Time celecoxib (From Celebrex) Allergy Hives Verified 10/30/24 16:49 ramipril Allergy Hives Verified 10/30/24 16:49 rofecoxib (From Vioxx) Allergy Hives Verified 10/30/24 16:49 letrozole (From Femara) AdvReac Pain in Verified 10/30/24 16:49 joints Social History Smoking Status: Former smoker ROS Constitutional Constitutional: Denies chills or fever(s) Eyes Eyes: Denies change in vision ENT HEENT: Denies abnormal hearing Cardiovascular Cardiovascular: Denies chest pain Respiratory/Chest Respiratory/Chest: Denies shortness of breath at rest Gastrointestinal Gastrointestinal: Reports abdominal pain and hematochezia; Denies nausea or vomiting Genitourinary Genitourinary: Denies dysuria Musculoskeletal Musculoskeletal: Denies back pain Integumentary Integumentary: Denies dry skin Neurologic Neurologic: Denies abnormal gait Psychiatric Psychiatric: Denies anxiety Hematologic/Lymphatic Hematologic/Lymphatic: Reports anemia Vital Signs Vital Signs Vital Signs: 10/30/24 16:49 10/30/24 17:49 10/30/24 20:00 Temperature 96.3 F L Temperature Source Temporal Pulse Rate 84 Pulse Rate [Lying] 72 Pulse Rate [Sitting (for 1 minute prior to obtaining)] 73 Pulse Rate [Standing (for 1 minute prior to obtaining)] 74 Respiratory Rate 15 Blood Pressure 151/103 H 140/70 H Blood Pressure [Lying] 175/74 H Blood Pressure [Sitting (for 1 minute prior to obtaining)] 169/71 H Blood Pressure [Standing (for 1 minute prior to obtaining)] 150/76 H Blood Pressure Mean 119 93 Blood Pressure Mean [Lying] 107 Blood Pressure Mean [Sitting (for 1 minute prior to obtaining)] 103 Blood Pressure Mean [Standing (for 1 minute prior to obtaining)] 100 Pulse Ox 97 Oxygen Delivery Method Room Air Weight Weight: 190 lb Body Mass Index (BMI) 35.9 Physical Exam Const alert and oriented x3 General Appearance: cooperative and well developed HEENT normocephalic and head/scalp atraumatic Eyes PERRL Neck no lymphadenopathy Lymph Lymphatic: no lymphadenopathy noted Resp normal respiratory effort, normal air movement and clear to auscultation bilaterally Cardio regular rate, regular rhythm, S1 normal heart sound, S2 normal heart sound and no murmurs GI GI Narrative: +BS Inspection: abdominal distention Palpation: tender LLQ Extremity normal capillary refill Skin General Skin Exam: no breakdown Neuro no focal motor deficits and no sensory deficits noted Psych thought process normal, cooperative and affect normal Results Lab / Micro Data 10/30/24 17:18 10/30/24 17:18 Labs: Laboratory Results - last 24 hr 10/30/24 17:18: WBC 5.9, RBC 3.27 L, Hgb 9.7 L, Hct 28.6 L, MCV 87.5, MCH 29.7, MCHC 33.9, RDW Std Deviation 48.5 H, RDW Coeff of Miriam 15.3 H, Plt Count 276, MPV8.1, Immature Gran % (Auto) 0.500, Neut % (Auto) 52.6, Lymph % (Auto) 35.5, Manati% (Auto) 8.3, Eos % (Auto) 2.2, Baso % (Auto) 0.9, Absolute Neuts (auto) 3.1, Absolute Lymphs (auto) 2.09, Nucleated RBC % 0, Sodium 135, Potassium 4.0, Chloride 99, Carbon Dioxide 21.5, Anion Gap 14, BUN 15, Creatinine 0.93, Estim Creat Clear Calc 52.11, Est GFR (MDRD) Non-Af 64, BUN/Creatinine Ratio 15.7, Glucose 193 H, Lactic Acid 1.5, Calcium 9.3 10/30/24 18:17: Urine Color Straw, Urine Clarity Clear, Urine pH 6.5, Ur Specific Collins 1.010, Urine Protein 30 H, Urine Glucose (UA) Normal, Urine Ketones Negative, Urine Occult Blood 25 H, Urine Nitrite Negative, Urine Bilirubin Negative, Urine Urobilinogen Normal, Ur Leukocyte Esterase 25 H, UrineRBC 0-5 SEEN, Urine WBC 0- 5 SEEN, Ur Squamous Epith Cells 0-5 SEEN, Urine Bacteria 0 SEEN, Urine Mucus 0 SEEN Micro: Microbiology 10/30/24 17:21 Stool Stool Occult Blood (MONY) - Final Occult Blood Positive Imaging Radiology Impression Abdomen/Pelvis CT 10/30/24 17:08 IMPRESSION: Mild stool burden within the large bowel. No inflammatory changes of the bowel loops. Umbilical hernia containing a focal loop of transverse colon, no inflammatory changes to suggest strangulation. [facility] Assessment & Plan Assessment/Plan (1) Weakness: (2) Anemia: (3) Acute lower GI bleeding: PLAN: Plan 1 acute GI bleed?stable at present with no active bleeding at this time?admit patient to general medical floor, IV Protonix 40 mg every 12 hours, make n.p.o. at midnight pending evaluation from GI specialist Dr. Glez. Repeat H&H every 4 hours. 2. DVT prophylaxis?SCDs 3. Diabetes?blood sugar checks every 6 hours and will add sliding scale insulin 4. Hyperlipidemia?continue statin medication 5. Hypertension?continue routine home antihypertensive therapy Charges/Coding Visit Charges Inpatient E&M: 48039 Init Hosp L2 10/30/242045 <Electronically signed by Joe Chance MD> Cosigner Signature (if applicable): CC: RN PROGRESSIVE CARE-Osiris Goldstein; Dr. Joe Chance MD~ Signed [facility] Work Phone: [phone] History and physical note [facility] Medical Records Department [address] [place] [address] History & Physical Exam 10/30/242038 MR#: [id number] Acct: [id number] Name: ORION SORENSEN Rep #:[id number] : 1950 73 From: Joe Chance MD PCP: ROSENDO Perea Status:AD M IN Location: [facility] [id number] HPI - General General Date of Admission: 10/30/24 Date of Service: 10/30/24 Chief Complaint: Gastrointestinal bleeding HPI Narrative ORION SORENSEN, is a 73 F who presents to the emergency room with chief complaint of gastrointestinal bleeding. Onset of symptoms began approximately 1month ago on and off and became worse this past week. She states she was filling the toilet bowl with red blood with every bowel movement over the past week. She has a history of neck surgery done in July and is still wearing aneck brace at this time. Approximately a week ago she took heavy dose of THC and ended up in the emergency room at another facility at which time her hemoglobin was in the 11.5 range and is currently at 9.7. Patient denies any chest pain, shortness of breath, fevers or chills however she does have a decreased appetite and tenderness over her left lower quadrant of the abdomen. Patient will be admitted and managed for GI bleed. [facility] Home Medications ?Medication ?Instructions ?Recorded ?Last Taken ?Type alendronate 70 mg tablet (Fosamax) 70 mg PO QWEEK 12/17 Unknown History aspirin 81 mg tablet,delayed 81 mg PO DAILY HEART 12/17 Unknown History release (Aspir-Low) calcium 600 mg (as 1 ea PO BID SUPPLEMENT 09/06 Unknown History carbonate)-vitamin D3 20 mcg (800 unit) tablet (Caltrate with Vitamin D3) hydrocodone-acetaminophen 5-325mg 1 tab PO Q6H PRN PRN Pain 09/06/17 Unknown History 5mg-325mg insulin aspart U-100 100 unit/mL 15 units subcut TIDCM DIABETES 09/06/17 Unknown History (3 mL) subcutaneous pen (Novolog FlexPen U-100 Insulin aspart) insulin glargine 100 unit/mL (3 30 units subcut QHS DI ABETES 09/06/17 Unknown History mL) subcutaneous pen (Lantus Solostar U-100 Insulin) naproxen sodium 220 mg tablet 220 mg PO Q8H PRN PRN Pa in 09/06/17 Unknown History (Aleve) omeprazole 40 mg capsule,delayed 40 mg PO DAILY REFLUX 09/06/17 09/13/17 06:00 History release simvastatin 10 mg tablet (Zocor) 10 mg PO QHS CHOLESTE ROL 09/06/17 Unknown History solifenacin 10 mg tablet (Vesicare) 10 mg PO DAILY JOY DDER 09/06/17 Unknown History tizanidine 2 mg tablet 2 mg PO Q8H PRN Pain 8 Unknown History valsartan 40 mg tablet (Diovan) 40 mg PO DAILY BP 12/1709/13/17 06:00 History cephalexin 500 mg capsule 500 mg PO Q12 #20 caps 09/14 Unknown Rx hydrocodone-acetaminophen 5-325mg 1 ea PO Q6H PRN PRN Mod-Severe 09/14/17 Unknown Rx 5mg-325mg Pain (4-10/10) 4 days #15 ta bs Allergy/AdvReac Type Severity Reaction Status Date / Time celecoxib (From Celebrex) Allergy Hives Verified 10/30/24 16:49 ramipril Allergy Hives Verified 10/30/24 16:49 rofecoxib (From Vioxx) Allergy Hives Verified 10/30/24 16:49 letrozole (From Femara) AdvReac Pain in Verified 10/30/24 16:49 joints Social History Smoking Status: Former smoker ROS Constitutional Constitutional: Denies chills or fever(s) Eyes Eyes: Denies change in vision ENT HEENT: Denies abnormal hearing Cardiovascular Cardiovascular: Denies chest pain Respiratory/Chest Respiratory/Chest: Denies shortness of breath at rest Gastrointestinal Gastrointestinal: Reports abdominal pain and hematochezia; Denies nausea or vomiting Genitourinary Genitourinary: Denies dysuria Musculoskeletal Musculoskeletal: Denies back pain Integumentary Integumentary: Denies dry skin Neurologic Neurologic: Denies abnormal gait Psychiatric Psychiatric: Denies anxiety Hematologic/Lymphatic Hematologic/Lymphatic: Reports anemia Vital Signs Vital Signs Vital Signs: 10/30/24 16:49 10/30/24 17:49 10/30/24 20:00 Temperature 96.3 F L Temperature Source Temporal Pulse Rate 84 Pulse Rate [Lying] 72 Pulse Rate [Sitting (for 1 minute prior to obtaining)] 73 Pulse Rate [Standing (for 1 minute prior to obtaining)] 74 Respiratory Rate 15 Blood Pressure 151/103 H 140/70 H Blood Pressure [Lying] 175/74 H Blood Pressure [Sitting (for 1 minute prior to obtaining)] 169/71 H Blood Pressure [Standing (for 1 minute prior to obtaining)] 150/76 H Blood Pressure Mean 119 93 Blood Pressure Mean [Lying] 107 Blood Pressure Mean [Sitting (for 1 minute prior to obtaining)] 103 Blood Pressure Mean [Standing (for 1 minute prior to obtaining)] 100 Pulse Ox 97 Oxygen Delivery Method Room Air Weight Weight: 190 lb Body Mass Index (BMI) 35.9 Physical Exam Const alert and oriented x3 General Appearance: cooperative and well developed HEENT normocephalic and head/scalp atraumatic Eyes PERRL Neck no lymphadenopathy Lymph Lymphatic: no lymphadenopathy noted Resp normal respiratory effort, normal air movement and clear to auscultation bilaterally Cardio regular rate, regular rhythm, S1 normal heart sound, S2 normal heart sound and no murmurs GI GI Narrative: +BS Inspection: abdominal distention Palpation: tender LLQ Extremity normal capillary refill Skin General Skin Exam: no breakdown Neuro no focal motor deficits and no sensory deficits noted Psych thought process normal, cooperative and affect normal Results Lab / Micro Data 10/30/24 17:18 10/30/24 17:18 Labs: Laboratory Results - last 24 hr 10/30/24 17:18: WBC 5.9, RBC 3.27 L, Hgb 9.7 L, Hct 28.6 L, MCV 87.5, MCH 29.7, MCHC 33.9, RDW Std Deviation 48.5 H, RDW Coeff of Miriam 15.3 H, Plt Count 276, MPV8.1, Immature Gran % (Auto) 0.500, Neut% (Auto) 52.6, Lymph % (Auto) 35.5, [place]ati% (Auto) 8.3, Eos % (Auto) 2.2, Baso % (Auto) 0.9, AbsoluteNeuts (auto) 3.1, Absolute Lymphs (auto) 2.09, Nucleated RBC % 0, Sodium 135, Potassium 4.0, Chloride 99, Carbon Dioxide 21.5, Anion Gap 14, BUN 15, Creatinine 0.93, Estim Creat Clear Calc 52.11, EstGFR (MDRD) Non-Af 64, BUN/Creatinine Ratio 15.7, Glucose 193 H, Lactic Acid 1.5, Calcium 9.3 10/30/24 18:17: Urine Color Straw, Urine Clarity Clear, Urine pH 6.5, Ur Specific Collins 1.010, Urine Protein 30 H, Urine Glucose (UA) Normal, Urine Ketones Negative, Urine Occult Blood 25 H, Urine Nitrite Negative, Urine Bilirubin Negative, Urine Urobilinogen Normal, Ur Leukocyte Esterase 25 H, Ur ineRBC 0-5 SEEN, Urine WBC 0-5 SEEN, Ur Squamous Epith Cells 0-5 SEEN, Urine Bacteria 0 SEEN, UrineMucus 0 SEEN Micro: Microbiology 10/30/24 17:21 Stool Stool Occult Blood (MONY) - Final Occult Blood Positive Imaging Radiology Impression Abdomen/Pelvis CT 10/30/24 17:08 IMPRESSION: Mild stool burden within the large bowel. No inflammatory changes of the bowel loops. Umbilical hernia containing a focal loop of transverse colon, no inflammatory changes to suggest strangulation. Reading [facility] Assessment & Plan Assessment/Plan (1) Weakness: (2) Anemia: (3) Acute lower GI bleeding: PLAN: Plan 1 acute GI bleed?stable at present with no active bleeding at this time?admit patient to general medical floor, IV Protonix 40 mg every 12 hours, make n.p.o. at midnight pending evaluation from GI specialist Dr. Glez. Repeat H&H every 4 hours. 2. DVT prophylaxis?SCDs 3. Diabetes?blood sugar checks every 6 hours and will add sliding scale insulin 4. Hyperlipidemia?continue statin medication 5. Hypertension?continue routine home antihypertensive therapy Charges/Coding Visit Charges Inpatient E&M: 70347 Init Hosp L2 10/30/242045 Cosigner Signature (if applicable): CC: RN PROGRESSIVE CARE-C Terrie Goldstein; Dr. Joe Chance MD~ Signed [facility]03-31-2025 [facility] Medical Records Department [address] [place] [id number] History Physical Exam 10/30/242038 MR#: [id number] Acct: [id number] Name: ORION SORENSEN Rep #: [id number] : 1950 73 From: Joe Chance MD PCP: ROSENDO Perea Status:ADM IN Location: [facility] GB072-1 [facility] - General General Date of Admission: 10/30/24 Date of Service: 10/30/24 Chief Complaint: Gastrointestinal bleeding HPI Narrative ORION SORENSEN, is a 73 F who presents to the emergency room with chief complaint of gastrointestinal bleeding. Onset of symptoms began approximately 1 month ago on and off and became worse this past week. She states she was filling the toilet bowl with red blood with every bowel movement over the past week. She has a history of neck surgery done in July and is still wearing a neck brace at this time. Approximately a week ago she took heavy dose of THC and ended up in the emergency room at another facility at which time her hemoglobin was in the 11.5 range and is currently at 9.7. Patient denies any chest pain, shortness of breath, fevers or chills however she does have a decreased appetite and tenderness over her left lower quadrant of the abdomen. Patient will be admitted and managed for GI bleed. [facility] Home Medications ???Medication ???Instructions ???Recorded ???Last Taken ???Type alendronate 70 mg tablet (Fosamax) 70 mg PO QWEEK 09/06/17 Unknown History aspirin 81 mg tablet,delayed 81 mg PO DAILY HEART 09/06/17 Unkn own History release (Aspir-Low) calcium 600 mg (as 1 ea PO BID SUPPLEMENT 09/06/17 Un known History carbonate)-vitamin D3 20 mcg (800 unit) tablet (Caltrate with Vitamin D3) hydrocodone-acetaminophen 5-325mg 1 tab PO Q6H PRN PRN Pain 8 Unknown History 5mg-325mg insulin aspart U-100 100 unit/mL 15 units subcut TIDCM DIABETES 12/17 Unknown History (3 mL) subcutaneous pen (Novolog FlexPen U-100 Insulin aspart) insulin glargine 100 unit/mL (3 30 units subcut QHS DIABETES 09/06 Unknown History mL) subcutaneous pen (Lantus Solostar U-100 Insulin) naproxen sodium 220 mg tablet 220 mg PO Q8H PRN PRN Pain 8 Unknown History (Aleve) omeprazole 40 mg capsule,delayed 40 mg PO DAILY REFLUX 09/06/1707/19 06:00 History release simvastatin 10 mg tablet (Zocor) 10 mg PO QHS CHOLESTEROL 09/06/17 Unknown History solifenacin 10 mg tablet (Vesicare) 10 mg PO DAILY BLADDER 09/06/17 Unknown History tizanidine 2 mg tablet 2 mg PO Q8H PRN Pain 09/06/17 Unkn own History valsartan 40 mg tablet (Diovan) 40 mg PO DAILY BP 09/06/17 8 06:00 History cephalexin 500 mg capsule 500 mg PO Q12 #20 caps 09/14/17 Un known Rx hydrocodone-acetaminophen 5-325mg 1 ea PO Q6H PRN PRN Mod-Severe Unknown Rx 5mg-325mg Pain (4-10/10) 4 days #15 tabs Allergy/AdvReac Type Severity Reaction Status Date / Time celecoxib (From Celebrex) Allergy Hives Verified 10/30/24 16:49 ramipril Allergy Hives Verified 10/30/24 16:49 rofecoxib (From Vioxx) Allergy Hives Verified 10/30/24 16:49 letrozole (From Femara) AdvReac Pain in Verified 10/30/24 16:49 joints Social History Smoking Status: Former smoker ROS Constitutional Constitutional: Denies chills or fever(s) Eyes Eyes: Denies change in vision ENT HEENT: Denies abnormal hearing Cardiovascular Cardiovascular: Denies chest pain Respiratory/Chest Respiratory/Chest: Denies shortness of breath at rest Gastrointestinal Gastrointestinal: Reports abdominal pain and hematochezia; Denies nausea or vomiting Genitourinary Genitourinary: Denies dysuria Musculoskeletal Musculoskeletal: Denies back pain Integumentary Integumentary: Denies dry skin Neurologic Neurologic: Denies abnormal gait Psychiatric Psychiatric: Denies anxiety Hematologic/Lymphatic Hematologic/Lymphatic: Reports anemia Vital Signs Vital Signs Vital Signs: 10/30/24 16:49 10/30/24 17:49 10/30/24 20:00 Temperature 96.3 F L Temperature Source Temporal Pulse Rate 84 Pulse Rate [Lying] 72 Pulse Rate [Sitting (for 1 minute prior to obtaining)] 73 Pulse Rate [Standing (for 1 minute prior to obtaining)] 74 Respiratory Rate 15 Blood Pressure 151/103 H 140/70 H Blood Pressure [Lying] 175/74 H Blood Pressure [Sitting (for 1 minute prior to obtaining)] 169/71 H Blood Pressure [Standing (for 1 minute prior to obtaining)] 150/76 H Blood Pressure Mean 119 93 Blood Pressure Mean [Lying] 107 Blood Pressure Mean [Sitting (for 1 minute prior to obtaining)] 103 Blood Pressure Mean [Standing (for 1 minute prior to obtaining)] 100 Pulse Ox 97 Oxygen Delivery Method Room Air Weight Weight: 190 lb Body Mass Index (BMI) 35.9 Physical Exam Const al (more content not included)...[facility]03-31-2025 Radiology Diagnostic study note [facility] Imaging Services [address] [place] [address] Abdomen/Pelvis W IV Cont ONLY MR#: [id number] Acct: [id number] Name: ORION SORENSEN Rep #: [id number] : 1950 F 73 From: Mendy Mason DO PCP: Terrie Goldstein, RN PROGRESSIVE CARE-C Status: RE G ER Study:Abdomen/Pelvis W IV Cont ONLY Date of Lakshmi fleming: 10/30/24 Exam# [id number] Ordering Dr: Chikis Mcclain DO PROCEDURE: ABDOMEN/PELVIS W IV CONT ONLY 10/30/2024 REASON FOR EXAM: ABDOMINAL PAIN, RECTAL BLEEDING TECHNIQUE: Abdomen and pelvis CT with intravenous contrast. Coronal and Sagittal reconstruction series were provided. PATIENT PREPARATION: Per protocol ORAL CONTRAST TYPE: None. CONTRAST: Isovue 370 VOLUME: 100mL gauge IV One or more dose reduction techniques were used (e.g., Automated exposure control, adjustment of the mA and/or kV according to patient size, use of iterative reconstruction technique. RADIATION DOSE SUMMARY: CTDlvol: 27 mGy DLP: 988 mGycm COMPARISON: None FINDINGS: Lung bases: Unremarkable Liver: Normal size. No mass. Gallbladder: Unremarkable Spleen: Small punctate calcification. Pancreas: Normal size without evidence of mass surrounding inflammation or ductal dilation. Adrenals: Thickening of the bilateral adrenal glands likely related to hyperplasia. Kidneys: Tiny parenchymal low attenuating lesion of the right kidney, too small to characterize. Noevidence of nephrolithiasis or hydronephrosis. Bladder: Unremarkable Reproductive Organs: Normal uterine size and contour. Ovaries are unremarkable. Bowel: Evaluation of the bowel loops are limited due to lack of oral contrast. The stomach is grossly unremarkable. No inflammatory changes of the small bowel. Surgical sutures along the distal rectum consistent with prior resection. Mild stool burden within the large bowel. No inflammatory changes. There is a small umbilical hernia containing a focal loop of transverse colon, no distention, wall thickening or adjacent stranding to suggest obstruction. Appendix: Unremarkable Lymph nodes: Unremarkable. Vasculature: Mild diffuse atherosclerotic calcifications are noted. Peritoneum / Retroperitoneum: No free air or free fluid is demonstrated. Bones: Degenerative changes of the lumbar spine CT/Abdomen/Pelvis W IV Cont ONLY IMPRESSION: Mild stool burden within the large bowel. No inflammatory changes of the bowel loops. Umbilical hernia containing a focal loop of transverse colon, no inflammatory changes to suggest strangulation. Reading [facility] CC: RN PROGRESSIVE CARE-C Terrie Goldstein; Dr. Remus Ungur, DO ~ Cold Roll Catcher: Signed [facility]03-13-2025 History of Present illness Narrative* Bruno Lares MD - 10/12/2024 3:00 PM EDT Images from the original note were not included. NEUROSURGERY POST-OP NOTE Bruno Lares MD [facility] Date of visit: September 27, 2024 Patient Name: Ms.Ann Cheryl Sorensen Date of : 1950 Current Age: [age] year old Sex: female MRN/E# [id number] Last Office Visit: 08/31/2024 SURGERY: C4-T1 PCDF on 07/21/2024 Pre-Surgical Symptoms: weakness Past Medical/Surgical History: Orion Sorensen is a 73 year old female who is for neurosurgical evaluation. The patient has a history of breast cancer, CAD, DM2, HTN, HLD. HPI: Patient is having their 3 month post operative visit. She was last seen in the office on 08/31/2024 for a 6 week follow up when she had been doing well and continued to improve. She was able to perform more ADL's on her own like dressing herself and showering and she was ambulating without assistive devices. Her imaging was stable and she was advised she may remove the collar to sleep at night, but she was to continue to wearing it during the day while OOB. She was advised to follow up in 6 weeks time with flexion and extension imaging for re-evaluation, prompting her visit today. Patient feels that surgery has improved her presurgical symptoms. Notes she feels good in the morning, but at night she is having difficulties sleeping due to neck pain and tightness at times. Endorses a burning sensation to her posterior neck at times. Continues with wearing her collar and off at night. Reports her weakness is improving. Improvement in her bilateral hand tingling and feels her right is significantly better. She is now able to write her name and is tickled by this. She notes taking tylenol and Advil PM for pain. Overall, she is pleased with surgery. Incision: Healed Current Outpatient Medications Medication Sig Dispense Refill ibuprofen (ADVIL ORAL) Take by mouth. aspirin, enteric coated (ASPIRIN, ENTERIC COATED) 81 mg EC tablet Take 1 tablet by mouth once daily. Hold for 5 days post operatively omega-3 DHA-EPA (FISH OIL) 1,200 (144-216) mg capsule Take 1 capsule by mouth once daily. acetaminophen (TYLENOL) 325 mg cap Take by mouth as needed for pain. magnesium oxide (MAG-OX) 400 mg (241.3 mg magnesium) tablet Take 400 mg by mouth once daily. oxybutynin ER (DITROPAN XL) 10 mg 24 hr tablet Take 10 mg by mouth once daily. NOVOLOG FLEXPEN 100 unit/mL inpn Inject 25 Units subcutaneously three times daily. LANTUS SOLOSTAR 100 unit/mL (3 mL) inpn Inject 30-35 Units subcutaneously daily at bedtime. alendronate (FOSAMAX) 70 mg tablet Take 1 tablet by mouth every other week. ONETOUCH ULTRA TEST test strip three times daily. Omeprazole 40 mg capsule Take 1 capsule by mouth once daily. simvastatin (ZOCOR) 10 mg tablet Take 1 tablet by mouth once daily. valsartan (DIOVAN) 40 mg tablet Take 1 tablet by mouth two times a day. No current facility-administered medications for this visit. Objective Review of Systems Constitutional: Negative for chills, fatigue and fever. HENT: Negative for congestion and sore throat. Eyes: Negative for discharge, itching and visual disturbance. Respiratory: Negative for cough and shortness of breath. Cardiovascular: Negative for chest pain and palpitations. Gastrointestinal: Negative for constipation, diarrhea, nausea and vomiting. Endocrine: Negative for cold intolerance and heat intolerance. Genitourinary: Negative for difficulty urinating, frequency and urgency. Musculoskeletal: Positive for neck pain and neck stiffness. Negative for back pain and gait problem. Skin: Negative for rash and wound. Allergic/Immunologic: Negative for environmental allergies and food allergies. Neurological: Positive for weakness. Negative for dizziness, light-headedness, numbness and headaches. Tingling Hematological: Does not bruise/bleed easily. Psychiatric/Behavioral: Negative for agitation. The patient is not nervous/anxious. PHYSICAL EXAM: Mental State : Alert, memory function unremarkable. Attention span and concentration normal for patient's age. Speech normal, no receptive or expressive speech deficit. Recent and remote memory normal. Orientation : Oriented to person, place and time. Cranial Nerves : Grossly intact. Sensory: Normal Sensation in upper and lower extremities and trunk to touch and noxious stimuli. Motor: Normal muscle tone and bulk. No tremor or uncontrollable movements. No spasticity or tremor. Gait and Station: ambulates without a walker today STRENGTH: Upper Extremity Strength Exam Right Left Elbow Flexion 4+/5 4+/5 Elbow Extension 4+/5 4+/5 Finger Flexion 4+/5 4+/5 Finger Extension 4+/5 4+/5 Finger Abduction 4+/5 4+/5 Lower Extremity Strength Exam Right Left Hip Flexion 5/5 5/5 Knee Flexion 5/5 5/5 Knee Extension 5/5 5/5 Dorsiflexion 5/5 5/5 Plantarflexion 5/5 5/5 WOUND ASSESSMENT: Healing well PAIN EVALUATION 10/11/2024 1824 Pain Level: 3 Pain Location: Neck Description: Aching;Burning Duration Amount of Time: 24 Duration Units: Hours Frequency: Continuous Intervention/Comfort measure: Medication;Positioning Comments: Muscle relaxer would help cant sleep Data Review: IMAGING STUDIES: XR cervical 10/12/2024: posterior fusion hardware in good position Assessment & Plan: Ms. Sorensen presents approximately 3 months after her posterior cervical decompression and fusion for severe stenosis with myelopathy. She is doing very well, with significant improvement in her myelopathic symptoms. She has regained the majority of her hand function and is very happy. Her incision is well-healed and her x-rays look good. I explained that she may wean out of her collar over the next week and begin physical therapy. I will see her back in 3 months to assess her progress. All questions were answered. Attribution: The following portions of the patient's history were reviewed, confirmed, and updated as necessary:allergies, current medications, past family history, past medical history, past social history, past surgical history, problem list, HPI, and ROS obtained by others. Some elements may be copied from a previous office note and have been reviewed/updated where appropriate. All portions reflect current medical decision making from today. The clinical and radiographic findings as well as the risks, benefits and alternatives of treatmenthave been reviewed in detail with the patient. Advised to call the office if symptoms worsen or new symptoms develop. Patient expressed understanding and is in agreement with plan. Bruno Lares MD [facility] This note was partially generated using [employer] voice recognition system, and there may be some incorrect words, spellings, and punctuation that were not noted in checking the note before saving. documented in this encounterMer[facility]25 [facility]01[facility]30[facility] History of Present illness Narrative* Bruno Lares MD - 08/31/2024 2:00 PM EST Images from the original note were not included. NEUROSURGERY POST-OP NOTE Bruno Lares MD [facility] Date of visit: August 31, 2024 Patient Name: Ms.Ann Cheryl Sroensen Date of : 1950 Current Age: [age] year old Sex: female MRN/E# [id number] Last Office Visit: 08/03/2024 SURGERY: C4-T1 PCDF on 07/21/2024 Pre-Surgical Symptoms: weakness Past Medical/Surgical History: Orion Sorensen is a 73 year old female who is for neurosurgical evaluation. The patient has a history of breast cancer, CAD, DM2, HTN, HLD. HPI: Patient is having their 6 week post operative visit. Ms. Sorensen was seen being seen in the office for progressive R>L arm and hand paresthesia, pain and weakness for the past several years. Imaging showed moderate to severe stenosis at C5-6, andsevere stenosis at C6-7. The compression was mostly anterior though CT showed partially calcified disks at C5-6 and C6-7. It was not believed that it would be safe to approach this anteriorly so she r equired posterior approach. She was seen in the office on 08/03/2024 for a 2 week post operative visit when she had already beganto notice some improvements in her strength and paresthesia. She felt her balance was also improving as well as the strength in her legs. Imaging looked stable and she was advised to continue wearingthe cervical collar and maintain the lifting restriction of 15 pounds. She was to follow up in 4 weeks time with repeat imaging for re-evaluation, prompting her visit today. Patient feels that she is doing well post operatively and has continued to improve. She is able to shower and dress on her own, doing most ADL's independently. She is ambulating without any assistivedevices and has been compliant with her cervical collar. She is extremely pleased with her progress. Incision: Healed Current Outpatient Medications Medication Sig Dispense Refill aspirin, enteric coated (ASPIRIN, ENTERIC COATED) 81 mg EC tablet Take 1 tablet by mouth once daily. Hold for 5 days post operatively omega-3 DHA-EPA (FISH OIL) 1,200 (144-216) mg capsule Take 1 capsule by mouth once daily. acetaminophen (TYLENOL) 325 mg cap Take by mouth as needed for pain. magnesium oxide (MAG-OX) 400 mg (241.3 mg magnesium) tablet Take 400 mg by mouth once daily. oxybutynin ER (DITROPAN XL) 10 mg 24 hr tablet Take 10 mg by mouth once daily. NOVOLOG FLEXPEN 100 unit/mL inpn Inject 25 Units subcutaneously three times daily. LANTUS SOLOSTAR 100 unit/mL (3 mL) inpn Inject 30-35 Units subcutaneously daily at bedtime. alendronate (FOSAMAX) 70 mg tablet Take 1 tablet by mouth every other week. ONETOUCH ULTRA TEST test strip three times daily. Omeprazole 40 mg capsule Take 1 capsule by mouth once daily. simvastatin (ZOCOR) 10 mg tablet Take 1 tablet by mouth once daily. valsartan (DIOVAN) 40 mg tablet Take 1 tablet by mouth two times a day. No current facility-administered medications for this visit. Objective Review of Systems Constitutional: Negative for diaphoresis, fatigue and fever. HENT: Negative for ear pain, hearing loss and tinnitus. Eyes: Negative for photophobia, pain and visual disturbance. Respiratory: Negative for cough, chest tightness and shortness of breath. Cardiovascular: Negative for chest pain. Gastrointestinal: Negative for constipation, diarrhea, nausea and vomiting. Endocrine: Negative for polydipsia, polyphagia and polyuria. Genitourinary: Negative for difficulty urinating, frequency and urgency. Musculoskeletal: Positive for neck stiffness. Negative for back pain, gait problem and neck pain. Skin: Negative for color change and rash. Neurological: Negative for dizziness, weakness and numbness. Psychiatric/Behavioral: Negative for agitation and confusion. The patient is not nervous/anxious. PHYSICAL EXAM: Mental State : Alert, memory function unremarkable. Attention span and concentration normal for patient's age. Speech normal, no receptive or expressive speech deficit. Recent and remote memory normal. Orientation : Oriented to person, place and time. Cranial Nerves : Grossly intact. Sensory: Normal Sensation in upper and lower extremities and trunk to touch and noxious stimuli. Motor: Normal muscle tone and bulk. No tremor or uncontrollable movements. No spasticity or tremor. Gait and Station: ambulates without a walker today STRENGTH: Upper Extremity Strength Exam Right Left Elbow Flexion 4+/5 4+/5 Elbow Extension 4+/5 4+/5 Finger Flexion 4/5 4/5 Finger Extension 4/5 4/5 Finger Abduction 4/5 4/5 Lower Extremity Strength Exam Right Left Hip Flexion 5/5 5/5 Knee Flexion 5/5 5/5 Knee Extension 5/5 5/5 Dorsiflexion 5/5 5/5 Plantarflexion 5/5 5/5 WOUND ASSESSMENT: Healing well PAIN EVALUATION 08/30/2024 1430 Pain Level: 4 Pain Location: Neck Description: Spasm;Stiffness Duration Units: Hours Frequency: Intermittent Intervention/Comfort measure: Medication;Relaxation;Pillow support Comments: When doing too much. Data Review: IMAGING STUDIES: XR cervical 08/31/2024: Posterior fusion hardware from C4-T1 in good position. Assessment & Plan: Ms. Sorensen presents for her 6-week postoperative visit after posterior C4-T1 decompression and fusion. She is doing very well, with significant improvement in her preoperative myelopathic symptoms. She still has a little bit of numbness in the left hand, but this is improving. She is very happywith her progress. Her incision is well-healed and her x-rays look good. She may remove her collar to sleep at night, but she should still wear it during the day. I will see her back in 6 weeks with flexion-extension x-rays to assess her progress. All questions were answered. Attribution: The following portions of the patient's history were reviewed, confirmed, and updated as necessary:allergies, current medications, past family history, past medical history, past social history, past surgical history, problem list, HPI, and ROS obtained by others. Some elements may be copied from a previous office note and have been reviewed/updated where appropriate. All portions reflect current medical decision making from today. The clinical and radiographic findings as well as the risks, benefits and alternatives of treatmenthave been reviewed in detail with the patient. Advised to call the office if symptoms worsen or new symptoms develop. Patient expressed understanding and is in agreement with plan. Bruno Lares MD [facility] This note was partially generated using [employer] voice recognition system, and there may be some incorrect words, spellings, and punctuation that were not noted in checking the note before saving. documented in this encounterMer[facility]01-30-2025 [facility]01-30-2025 History of Present illness Narrative* Sandra Aguiar RT(R) - 08/31/2024 1:45 PM EST Radiology Service Progress Note PATIENT NAME: Orion Sorensen DATE OF SERVICE: August 31, 2024 TIME: 1:51 PM PATIENT IDENTITY VERIFICATION COMPLETED USING TWO (2) IDENTIFIERS: Name and Date of confirmedby patient verbally. FALL SCREENING: Has the patient had 2 falls in the last year or 1 fall with injury or currently using an Ambulatory Assistive Device (Walker, Cane, Wheelchair, Crutches, etc.)? No PATIENT GENDER DATA: Assigned female at . status: : No status:NO. PATIENT RELEVANT IMPLANT DATA REVIEWED: Not Applicable PATIENT PRESENTS WITH AN IMPLANTABLE OR ATTACHED DEPARTMENT MGR: No RADIOLOGY DEPARTMENT: General X-ray: Exam(s) Completed: Spine X-Ray(s): Cervical AP / LAT PERIPHERAL IV DATA: Not applicable SIGNED BY: RT Ritu(R) August 31, 2024 1:51 PM documented in this encounterMercy Health St. [facility]01-30-2025 [facility]01-02-2025 History of Present illness Narrative* Bruno Lares MD - 08/03/2024 2:00 PM EST Images from the original note were not included. NEUROSURGERY POST-OP NOTE Bruno Lares MD [facility] Date of visit: August 03, 2024 Patient Name: Ms.Ann Cheryl Sorensen Date of : 1950 Current Age: [age] year old Sex: female MRN/E# [id number] Last Office Visit: 07/20/2024 SURGERY: C4-T1 PCDF on 07/21/2024 Pre-Surgical Symptoms: weakness Past Medical/Surgical History: Orion Sorensen is a 73 year old female who is for neurosurgical evaluation. The patient has a history of breast cancer, CAD, DM2, HTN, HLD. HPI: Patient is having their 2 week post operative visit. Ms. Sorensen was seen being seen in the office for progressive R>L arm and hand paresthesia, pain and weakness for the past several years. Imaging showed moderate to severe stenosis at C5-6, andsevere stenosis at C6-7. The compression was mostly anterior though CT showed partially calcified disks at C5-6 and C6-7. It was not believed that it would be safe to approach this anteriorly so she r equired posterior approach. Patient feels that surgery went well and she has already noticed some improvements. She feels that her strength is improving as well and the paresthesia. The paresthesia that she would get in the right arm at night time is gone but she continues with some to the bilateral hands. She feels that her b alance has also improved as well as strength in her legs. She is very pleased with her progress this far. Incision: Dry and intact, some redness from cervical collar irritation - jhon removed this visit, patient tolerated well. Current Outpatient Medications Medication Sig Dispense Refill aspirin, enteric coated (ASPIRIN, ENTERIC COATED) 81 mg EC tablet Take 1 tablet by mouth once daily. Hold for 5 days post operatively methocarbamol (ROBAXIN) 750 mg tablet Take 1 tablet by mouth three times a day as needed for up to 15 days. 45 tablet 0 oxyCODONE IR (ROXICODONE) 5 mg immediate release tablet Take 1-2 tablets by mouth every 8 hours as needed for up to 7 days. 42 tablet 0 senna-docusate (SENNA-S) 8.6-50 mg per tablet 2 tablets by ORAL/FEEDING TUBE route once daily for 15 days. 30 tablet 0 omega-3 DHA-EPA (FISH OIL) 1,200 (144-216) mg capsule Take 1 capsule by mouth once daily. magnesium oxide (MAG-OX) 400 mg (241.3 mg magnesium) tablet Take 400 mg by mouth once daily. oxybutynin ER (DITROPAN XL) 10 mg 24 hr tablet Take 10 mg by mouth once daily. NOVOLOG FLEXPEN 100 unit/mL inpn Inject 25 Units subcutaneously three times daily. LANTUS SOLOSTAR 100 unit/mL (3 mL) inpn Inject 30-35 Units subcutaneously daily at bedtime. alendronate (FOSAMAX) 70 mg tablet Take 1 tablet by mouth every other week. ONETOUCH ULTRA TEST test strip three times daily. Omeprazole 40 mg capsule Take 1 capsule by mouth once daily. simvastatin (ZOCOR) 10 mg tablet Take 1 tablet by mouth once daily. valsartan (DIOVAN) 40 mg tablet Take 1 tablet by mouth two times a day. acetaminophen (TYLENOL) 325 mg cap Take by mouth as needed for pain. (Patient not taking: Reported on 08/03/2024) No current facility-administered medications for this visit. Objective Review of Systems Constitutional: Negative for diaphoresis, fatigue and fever. HENT: Negative for ear pain, hearing loss and tinnitus. Eyes: Negative for photophobia, pain and visual disturbance. Respiratory: Negative for cough, chest tightness and shortness of breath. Cardiovascular: Negative for chest pain. Gastrointestinal: Negative for constipation, diarrhea, nausea and vomiting. Endocrine: Negative for polydipsia, polyphagia and polyuria. Genitourinary: Negative for difficulty urinating, frequency and urgency. Musculoskeletal: Positive for gait problem, neck pain and neck stiffness. Negative for back pain. Skin: Negative for color change and rash. Neurological: Positive for weakness and numbness. Negative for dizziness. Psychiatric/Behavioral: Negative for agitation and confusion. The patient is not nervous/anxious. PHYSICAL EXAM: Mental State : Alert, memory function unremarkable. Attention span and concentration normal for patient's age. Speech normal, no receptive or expressive speech deficit. Recent and remote memory normal. Orientation : Oriented to person, place and time. Cranial Nerves : Grossly intact. Sensory: Normal Sensation in upper and lower extremities and trunk to touch and noxious stimuli. Motor: Normal muscle tone and bulk. No tremor or uncontrollable movements. No spasticity or tremor. Gait and Station: ambulates with a walker STRENGTH: Upper Extremity Strength Exam Right Left Elbow Flexion 4+/5 4+/5 Elbow Extension 4+/5 4+/5 Finger Flexion 4/5 4/5 Finger Extension 4/5 4/5 Finger Abduction 4/5 4/5 Lower Extremity Strength Exam Right Left Hip Flexion 5/5 5/5 Knee Flexion 5/5 5/5 Knee Extension 5/5 5/5 Dorsiflexion 5/5 5/5 Plantarflexion 5/5 5/5 WOUND ASSESSMENT: Healing well PAIN EVALUATION 08/02/20242028 Pain Level: 4 Pain Location: Neck-Posterior Description: Aching Frequency: Continuous Intervention/Comfort measure: Medication;Reposition;Pillow support;Positioning;Splinting Comments: Oxycodone Helps a lot Data Review: IMAGING STUDIES: XR cervical 08/03/2024: Posterior cervical fusion hardware in good position. Assessment & Plan: Ms. Sorensen returns for her 2-week postoperative visit after posterior cervical decompression and fusion for cervical stenosis with myelopathy. Her hospital stay was somewhat prolonged due to hyponatremia. She is doing very well, with significant improvement in her upper extremity pain, numbness, tingling, and weakness. She still has some residual weakness in her right arm and hand, but this is improving. She also feels improvements in her balance. Her incision is healing well and her x-rayslook good. I advised her to continue wearing her cervical collar and maintaining a lifting restriction of 15 pounds. I will see her back in 1 month with repeat x-rays to assess her progress. All questions were answered. Attribution: The following portions of the patient's history were reviewed, confirmed, and updated as necessary:allergies, current medications, past family history, past medical history, past social history, past surgical history, problem list, HPI, and ROS obtained by others. Some elements may be copied from a previous office note and have been reviewed/updated where appropriate. All portions reflect current medical decision making from today. The clinical and radiographic findings as well as the risks, benefits and alternatives of treatmenthave been reviewed in detail with the patient. Advised to call the office if symptoms worsen or new symptoms develop. Patient expressed understanding and is in agreement with plan. Bruno Lares MD [facility] This note was partially generated using Dot [employer] voice recognition system, and there may be some incorrect words, spellings, and punctuation that were not noted in checking the note before saving. documented in this encounterMer[facility]. [facility]01-02-2025 [facility]12-27-2024 [facility]12-27-2024 [facility]12-26-2024 [facility]12-26-2024 [facility]12-26-2024 [facility]12-25-2024 Note [facility]12-25-2024 [facility] 07-26-2024 [facility]12[facility]25-2024 [facility]12-24-2024 [facility]12-24-2024 [facility]12-23-2024 [facility]12-22-2024 [facility]12-21-2024 [facility]12-21-2024 Note [facility]12-20-2024 [facility] 07-21-2024 NoteHNO ID: [id number] Author: DALJIT IRIZARRY, EDMUND Service: Nursing Author Type: Registered Nurse Type: Nursing Progress Note Filed: 07/21/2024 11:56 Note Text: Dr. Austin aware of blood sugar of 222 no orders at this time.[facility]12-20-2024 [facility]12-20-2024 [facility]12-20-2024 NoteHNO ID: [id number] Author: JOE BALDERRAMA RN Service: Nursing Author Type: Registered Nurse Type: Nursing Progress Note Filed: 07/21/2024 06:17 Note Text: Dr Perry notified of BS 231 [facility]12-19-2024 Telephone encounter Note* Telephone Encounter - Alison Caldwell - 07/20/2024 10:31 AM EST Contacted patient to remind them of their arrival time for surgery with Dr. Bruno Lares on 07/21/24. Patient is to arrive at [facility] at 5:00am for surgery at 7:00am. Spoke with patient and they are aware of all arrival information. [facility]12-19-2024 Miscellaneous Notes* Telephone Encounter - Alison Caldwell - 07/20/2024 10:31 AM EST Contacted patient to remind them of their arrival time for surgery with Dr. Bruno Lares on 07/21/24. Patient is to arrive at [facility] at 5:00am for surgery at 7:00am. Spoke with patient and they are aware of all arrival information. documented in this encounterMer[facility]12-19-2024 Telephone encounter Note * Telephone Encounter - Bruno Lares MD - 07/20/2024 9:20 AM EST Mani Bendere, thanks for reaching out. Yes, saw that she had some lab abnormalities with her LFTs and A1C. Unfortunately she has been getting progressively more myelopathic and I don't think we should delay her surgery unless there is a high risk of her being under anesthesia. [facility] Work Phone: [phone]) 710-957912-19-2024 Miscellaneous Notes* Telephone Encounter - Bruno Lares MD - 07/20/2024 9:20 AM EST Mani Bendere, thanks for reaching out. Yes, saw that she had some lab abnormalities with her LFTs and A1C. Unfortunately she has been getting progressively more myelopathic and I don't think we should delay her surgery unless there is a high risk of her being under anesthesia. * Telephone Encounter - Dory Gallegos APRN.CNP - 07/20/2024 9:08 AM EST Good morning Dr. Lares, I am doing the final review of Orion's chart for tomorrow. I noticed that her LFT's have increased significantly from a year ago. I reviewed with Dr. Scanlon, anesthesia. Is there any concerns moving ahead? Also we do not have medical clearance in [facility] however Tammy from your office just called [facility] said it was faxed over this morning and will be scanned into [employer] soon. Thank you Dory Gallegos APRN.DRYING MACHINE RECEIVER Pre Anesthesia Testing documented in this encounterMercy Health St. [facility]12-19-2024 [facility]12-19-2024 Telephone encounter Note* Telephone Encounter - Dory Gallegos APRN.CNP - 07/20/2024 9:08 AM EST Good morning Dr. Lares, I am doing the final review of Orion's chart for tomorrow. I noticed that her LFT's have increased significantly from a year ago. I reviewed with Dr. Scanlon, anesthesia. Is there any concerns moving ahead? Also we do not have medical clearance in [facility] however Tammy from your office just called [facility] said it was faxed over this morning and will be scanned into [employer] soon. Thank you Dory Gallegos APRN.CNP Pre Anesthesia Testing [facility] Work Phone: [phone] Telephone encounter Note* Telephone Encounter - Alison Caldwell - 07/12/2024 10:24 AM EST Called and spoke with patient regarding upcoming surgery and Medical Clearance. We had patient's incorrect PCP in chart. I corrected PCP and refaxed form. Will await clearance. [facility]12-11-2024 Miscellaneous Notes* Telephone Encounter - Alison Caldwell - 07/12/2024 10:24 AM EST Called and spoke with patient regarding upcoming surgery and Medical Clearance. We had patient's incorrect PCP in chart. I corrected PCP and refaxed form. Will await clearance. documented in this [facility]24 [facility]12-06-[facility]24 History of Present illness Narrative* Irish Downing APRN.CNP - 07/07/2024 4:08 PM EST RED DOT: CC RONNIE please follow-up. I faxed a request to the PCP requesting a copy of an echocardiogram that the patient states she had done this year. Unable to locate echo in [facility]. Patient states shewas recently diagnosed with a cardiac murmur. She is asymptomatic. Medical optimization pending. Review echo with anesthesia if needed. Cardiac murmur Patient states she had an echocardiogram this year at [facility]. I faxed a request to get a copy of the echo I do not see it in [facility]. No murmur auscultated today during her physical exam. Patient states she was just told recently she had a heart murmur. She is asymptomatic denies shortness of breath or chest pain. Hypercholesterolemia Simvastatin 10 mg. Continue as prescribed Fish oil. Stop 7 days Gastroesophageal reflux disease Omeprazole 40 mg. 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 -Lantus 35 to 40 units at bedtime. Instructed to get day of surgery insulin orders from prescribingprovider. -NovoLog 28 to 30 units 3 times a day. Instructed to get day of surgery insulin orders from prescribing provider. -Hemoglobin A1c ordered by surgeon today. Check glucose day of surgery. Malignant neoplasm of upper-outer quadrant of right breast in female, estrogen receptor positive (HCC) No BP or IV sticks in the right arm. Stage 3 chronic kidney disease (HCC) Per patient kidney disease is managed by primary care. Medical optimization pending. -CMP collected today. Creatinine Date Value Ref Range Status 07/06/2023 1.18 (H) 0.58 - 0.96 mg/dL Final 07/07/2022 1.06 (H) 0.58 - 0.96 mg/dL Final 07/08/2021 1.07 (H) 0.58 - 0.96 mg/dL Final 07/09/2020 1.01 (H) 0.58 - 0.96 mg/dL Final Anemia of chronic disease Patient denies issues with anemia. Does not take oral supplements. Has not had any recent transfusions. -CBC collected today Hemoglobin (g/dL) Date Value 07/04/2024 11.2 07/06/2023 10.9 07/07/2022 10.5 07/08/2021 11.2 07/09/2020 11.7 HGB (g/dL) Date Value 09/22/2019 9.7 09/21/2019 9.5 Pre-op examination Patient has the following medical conditions which may affect giovani-operative course addressed in assessment and plan today. -Patient admitted to some issues with her memory. Patient lives alone. Today patient had 2 Dexcom patches on. She had forgot to take off the previous patch. Epic message sent to [facility]. [facility] recommends geriatric consult after surgery while admitted. 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 Lares Coronary artery disease involving [place] coronary artery Managed by primary care per patient. Medical optimization pending. No cardiac stents per patient. -EKG done today in pretesting. -Fax request to primary care for copy of recent echo. -Aspirin 81 mg. Instructed to get instructions from surgeon. -On a statin. [place] Activity Status Index: METS: Climb a flight of stairs or walk up a hill (5.50 METs) DASI Score: 5.5 Patient denies any chest pain or undue shortness of breath with the above physical activity. Clinical Frailty Scale: 3. Well, with treated comorbid disease ARISCAT Score: Age: 51-80 Preoperative SpO2: >=96% Respiratory infection in the last month: No Preoperative anemia: No Surgical incision: peripheral Duration of surgery: 2-3 hrs Emergency procedure: No ARISCAT Score: 19 ANESTHESIA FINDINGS: Intubation History: No history of difficult intubation. No abnormal airway history Significant Anesthesia Considerations: none Airway History: NECK IS STIFF R/T PAIN, SEE HPI No history of difficult airway No abnormal airway history documented in this encounterMer[facility] Instructions* Patient Instructions* Irish Downing APRN.CNP - 07/07/2024 1:01 PM EST PATIENT PREOPERATIVE INSTRUCTIONS Bruno Lares MD has scheduled you for your procedure at this surgery center: [facility]: [phone], [address] [id number] Please read below carefully for your personalized instructions. SURGERY DATE: 07-21-24 Your surgeon's office will provide you with your ARRIVAL TIME for surgery. -If you have not received an arrival time by the afternoon before your surgery date, please follow up with your surgeon's office. - If you are scheduled for Wednesday surgery, please make sure you have your arrival time by Wednesday afternoon. -Please be aware that emergency situations arise, which may delay or change your surgical time. If this happens, your surgeon's office will notify you as soon as possible and regret any inconvenience. You need a responsible person to stay and wait for you at the hospital or surgery center during your procedure. - -If you are undergoing an outpatient procedure you must have someone drive you home and stay withyou for 24 hours. Your ride home must be at least 18 years old or older. Your surgery may be cancelled if you do not have someone to drive you home or take care of you for 24 hours. Dietary Restrictions: - No solid food after midnight. - You may have 12 ounces of clear liquids (water, clear juices such as apple juice or gatorade, carbonated beverages, clear tea, black coffee, jello) until 2 hours before scheduled arrival at facility. This is important because if you do, your surgery may have to be cancelled Blood Thinning Medications: Stop NSAIDS. -DO NOT TAKE (Ibuprofen, Advil, Aleve, Motrin, Naproxen, Celebrex, Mobic, Voltaren, Diclofenac etc.) 7 days before surgery, or as directed by your surgeon. IF YOU TAKE ANY OF THE FOLLOWING BLOOD THINNERS, PLEASE CONTACT YOUR SURGEON AND THE PHYSICIAN WHO PRESCRIBES IT FOR YOU IN ORDER TO GET PERIOPERATIVE INSTRUCTIONS SOON POSSIBLE. BLOOD THINNERS: Aspirin, Coumadin, Plavix, Eliquis, Pradaxa, Xarelto, Lovenox, Brilinta, Effient, Savaysa, Arixtra, etc - Stop Vitamin E, fish oil, multivitamins, Marijuana, CBD oil and other over the counter herbals and dietary supplements 7 days before surgery. -This would not apply to cancer patients who are prescribed Marinol or any other prescription form on marijuana or CBD. - You may take Tylenol (Acetaminophen) or any of your pain medications that do not contain aspirin or NSAIDS as needed. Preoperative Instructions for Patients with Diabetes Mellitus: Please follow up with the provider that manages your diabetes and how to prepare you for surgery. Do not take the morning of surgery; Metformin, Actos/Pioglitazone and Amaryl/Glimepiride, Linagliptin ( Tradjenta) For the following Medications, please HOLD 2 DAYS PRIOR TO SURGERY: Glucotrol/Glipizide, Januvia/Sitagliptin, Glyburide, Prandin/Repaglinide, Starlix/Nateglinide, Symlin/Pramlintide, Kazano ( Alogliptin/Metformin) For the following Medications, please HOLD 3 DAYS PRIOR TO SURGERY: Canagliflozin/Invokana, Dapagliflozin/Farxiga ,Empagliflozin/Jardiance, Invokamet/canagliflozin and metformin, Xigduo XR/ dapagliglozin and metformin, Glyxambi/ empagliflozin and metformin, Syndardy/ empagliflozin and metformin For the following Medications, please HOLD 4 DAYS PRIOR TO SURGERY: Ertugliflozin/Steglatro For the following Medications, please HOLD 7 DAYS PRIOR TO SURGERY: GLP-1 AGONIST: Adlyxin (lixisenatide), Bydureon BCise (exenatide suspension), Byetta (exenatide), Mounjaro (tirzepatide), Ozempic(semaglutide injection) Tanzeum (albiglutide), Trulicity (dulaglutide), Victoza (liraglutide), Wegovy ( semaglutide), Saxenda (liraglutide),Xultophy (degludec/liraglutide) . Oral form- Rybelsus (semaglutide tablets) Insulin Medication Instructions: Please follow up with the provider that manages your Insulin and how to prepare you for surgery. It is recommended ALL Pre-Op patients and Endoscopy patients hold all GLP-1 agonists for 7 days prior to surgery. Medications: Approved medications to take the morning of surgery with a sip of water: BP, Heart, thyroid, psych,seizure, and pain medications excluding NSAIDS. Use inhalers as prescribed. Please bring inhalers day of surgery. If you take an DARREN inhibitors (Angiotensin-converting enzyme inhibitors) and Angiotensin II receptor blockers (ARBs) for your blood pressure please Hold that medication day of surgery. Medications: Unless instructed differently below, stay on all of your medications until your surgery. If you start any new medications after today's visit, please contact your surgeon. Approved medications to take the morning of surgery with a sip of water: Pre Surgery Med Instructions Medication instructions acetaminophen (TYLENOL) 325 mg cap CONTINUE PRESCRIBED alendronate (FOSAMAX) 70 mg tablet As per surgeon's recommendation aspirin, enteric coated (ASPIRIN, ENTERIC COATED) 81 mg EC tablet As per surgeon's recommendation ibuprofen (ADVIL) 200 mg tablet Stop 7 days before surgery LANTUS SOLOSTAR 100 unit/mL (3 mL) inpn GET DAY OF SURGERY INSTRUCTIONS FROM PRESCRIBING PROVIDER magnesium oxide (MAG-OX) 400 mg (241.3 mg magnesium) tablet Stop 7 days before surgery NOVOLOG FLEXPEN 100 unit/mL inpn GET DAY OF SURGERY INSTRUCTIONS FROM PRESCRIBING PROVIDER omega-3 DHA-EPA (FISH OIL) 1,200 (144-216) mg capsule Stop 7 days before surgery Omeprazole 40 mg capsule CONTINUE PRESCRIBED. TAKE DAY OF SURGERY WITH SIP OF WATER. oxybutynin ER (DITROPAN XL) 10 mg 24 hr tablet CONTINUE PRESCRIBED simvastatin (ZOCOR) 10 mg tablet CONTINUE PRESCRIBED valsartan (DIOVAN) 40 mg tablet HOLD DAY OF SURGERY Weight loss medications: Sympathomimetics such as Adipex-P (Phentermine): Stop 4 days before surgery. Contrave (Naltrexone/Bupropion) Hold 2-3 days. Qsymia (Phentermine/Topiramate - Please contact your prescribing provider for Pre op directions. ( depending on the patients dose this medication may need tapered off. They should get pre op directions from their prescribing provider.) GLP-1 Agonists (oral and injectables) Hold 7 days. If you are on dialysis, please check with your dialysis center or market developer to see if any adjustments need to be made to your schedule for the week of your surgery If you start any new medications after today's visit, please contact the surgeon's office. Important Reminders: - Candy, mints, and tobacco products are NOT permitted the morning of surgery. - Hearing aids, dentures and glasses may be worn the morning of surgery. - NO jewelry, body piercings, makeup, hairpins or contacts are to be worn the day of surgery. -If you use CPAP/BIPAP, you can bring the machine with you the day of surgery. - If you are prescribed inhalers for breathing, continue using them AND bring them to the surgery center. -- Leave ALL valuables and money at home or with family members. -Oral hygiene and a shower or bath are required the evening before or the morning of surgery. - NO lotion, creams, powders or deodorants on the skin the day of surgery. -Wear loose, comfortable clothing that will accommodate bandages. -Your length of stay will be determined by your surgeon -- If you have a stimulator, implant or pump that requires a remote please bring the remote with you the day of surgery. - You will need to have someone else (Family or friend) drive you home once discharged from the hospital. You are not allowed to drive yourself home after surgery. - YOU MUST HAVE A RESPONSIBLE FLAGMAN TO TAKE YOU HOME. A INTEGRATED SPECIALIST, CAB OR UBER FLAGMAN CANNOT BE MADE A RESPONSIBLE FLAGMAN. - You cannot stay in a hotel alone after outpatient surgery. You will not be permitted to have yoursurgery, if you do not have someone to take care of you. -It is recommended patients have a 72-hour period between getting their vaccine and date of surgery. If you develop symptoms such as a fever, cold, or flu, or have other changes to your health within TWO DAYS of scheduled surgery or the morning of surgery, please contact the surgery center above. Visitors to any [facility] facility: An individual who is sick should not visit. Visitors to patients with COVID-19 must follow these guidelines, which include wearing a mask, eye protection, gown and gloves. CCAG- Visitations are: Visitation hours are from 7 a.m. to 9 p.m. Pre- Surgery-Patients may have up to two visitors at a time. PACU-Patients may have up to 1-2 visitors at a time. . Personal Belongings: -Please have your photo ID and insurance cards. -If you do not have a copy of advance directives on file with us, please bring a copy with you on the day of surgery. If you already have an Advance Directive, please fax a copy to [phone] or email to for it to be added to your chart. If you do not have an Advance Directive, you can find the appropriate form and more information at [email or web address]. We recommend that youcomplete the Advance Directive form found on the website and bring it with you the day of your surgery. It can be witnessed and scanned into your chart that day. documented in this encounterMer[facility] History and physical note * Irish Downing APRN.CNP - 07/07/2024 12:59 PM EST Images from the original note were not included. [facility] HISTORY AND PHYSICAL EXAMINATION SERVICE DATE: 07/07/2024 SERVICE TIME: 4:16 PM PRIMARY CARE PHYSICIAN: Ivonne Avila MD Assessment Patient has the following medical conditions which may affect giovani-operative course: Cardiac murmur Patient states she had an echocardiogram this year at [facility]. I faxed a request to get a copy of the echo I do not see it in epic. No murmur auscultated today during her physical exam. Patient states she was just told recently she had a heart murmur. She is asymptomatic denies shortness of breath or chest pain. Hypercholesterolemia Simvastatin 10 mg. Continue as prescribed Fish oil. Stop 7 days Gastroesophageal reflux disease Omeprazole 40 mg. Continue as prescribed 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) Managed by primary care per patient. -Lantus 35 to 40 units at bedtime. Instructed to get day of surgery insulin orders from prescribingprovider. -NovoLog 28 to 30 units 3 times a day. Instructed to get day of surgery insulin orders from prescribing provider. -Hemoglobin A1c ordered by surgeon today. Check glucose day of surgery. Malignant neoplasm of upper-outer quadrant of right breast in female, estrogen receptor positive (HCC) No BP or IV sticks in the right arm. Stage 3 chronic kidney disease (HCC) Per patient kidney disease is managed by primary care. Medical optimization pending. -CMP collected today. Creatinine Date Value Ref Range Status 07/06/2023 1.18 (H) 0.58 - 0.96 mg/dL Final 07/07/2022 1.06 (H) 0.58 - 0.96 mg/dL Final 07/08/2021 1.07 (H) 0.58 - 0.96 mg/dL Final 07/09/2020 1.01 (H) 0.58 - 0.96 mg/dL Final Anemia of chronic disease Patient denies issues with anemia. Does not take oral supplements. Has not had any recent transfusions. -CBC collected today Hemoglobin (g/dL) Date Value 07/04/2024 11.2 07/06/2023 10.9 07/07/2022 10.5 07/08/2021 11.2 07/09/2020 11.7 HGB (g/dL) Date Value 09/22/2019 9.7 09/21/2019 9.5 Pre-op examination Patient has the following medical conditions which may affect giovani-operative course addressed in assessment and plan today. -Patient admitted to some issues with her memory. Patient lives alone. Today patient had 2 Dexcom patches on. She had forgot to take off the previous patch. [employer] message sent to [facility]. [facility] recommends geriatric consult after surgery while admitted. 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 Lares Coronary artery disease involving [place] coronary artery Managed by primary care per patient. Medical optimization pending. No cardiac stents per patient. -EKG done today in pretesting. -Fax request to primary care for copy of recent echo. -Aspirin 81 mg. Instructed to get instructions from surgeon. -On a statin. [place] Activity Status Index: METS: Climb a flight of stairs or walk up a hill (5.50 METs) DASI Score: 5.5 Patient denies any chest pain or undue shortness of breath with the above physical activity. Clinical Frailty Scale: 3. Well, with treated comorbid disease ARISCAT Score: Age: 51-80 Preoperative SpO2: >=96% Respiratory infection in the last month: No Preoperative anemia: No Surgical incision: peripheral Duration of surgery: 2-3 hrs Emergency procedure: No ARISCAT Score: 19 ANESTHESIA FINDINGS: Intubation History: No history of difficult intubation. No abnormal airway history Significant Anesthesia Considerations: none Airway History: NECK IS STIFF R/T PAIN, SEE HPI No history of difficult airway No abnormal airway history I - PHYSICAL EVALUATION AIRWAY Patient intubated: No. DENTAL Dental findings: teeth intact. II - ANESTHESIA PLAN Anesthetic Plan: general Beta Mj Monitoring Plan Post Procedure Analgesic Plan Prepared for Surgery: CONSULTS: The following consults have been initiated at this time: primary care/internal medicine. Planned Anesthetic: general The Following Tests/Procedures Have Been Initiated: Orders Placed This Encounter omega-3 DHA-EPA (FISH OIL) 1,200 (144-216) mg capsule Sig: Take 1 capsule by mouth once daily. acetaminophen (TYLENOL) 325 mg cap Sig: Take by mouth as needed for pain. ibuprofen (ADVIL) 200 mg tablet Sig: Take 400 mg by mouth as needed for pain. REASON FOR VISIT: Orion Sorensen is a 73 year old female who is scheduled for * No surgery found * at the request of Dr. Bruno aLres for routine H&P. My final recommendation will be communicated back to the requesting physician by way of shared medical record or letter. Subjective The patient has the following: COVID-19 Immunization Status Overdue - Covid-19 Vaccine ( season) Overdue since 04/02/2024 08/07/2022 Outside Immunization: SARS-CoV-2 CV19 mRNA tozinameran 12y+vax 07/28/2021 Imm Admin: COVID-19 original vaccine, age 12+ yr, monovalent (PFIZER- BIONTECH - PURPLE TOP) 11/27/2020 Imm Admin: COVID-19 original vaccine, age 12+ yr, monovalent (PFIZER- BIONTECH - PURPLE TOP) Only the first 3 history entries have been loaded, but more history exists. CHIEF COMPLAINT: The reason for this visit is to perform a comprehensive review of the patient's past medical history, assess their current health status and obtain any additional testing required based on anesthesia guidelines. We will also identify any potential anesthesia problems or contraindications to the planned procedure. HPI: Orion Sorensen is a 73 year old female that presents for pre anesthesia testing. She has a history of right breast cancer, chronic kidney disease, coronary artery disease, diabetes type 2, cholesterol and cervical stenosis. Denies trauma to the neck. 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 She states the last 2 years neck pain has gradually gotten worse. She has constant aching stabbing neck pain that radiates down to the shoulders. She did physical therapy but that did not help. She has numbness and tingling in both hands but worse in the right hand.Uses Advil and Tylenol as needed for pain. June 08, [address] scan of the cervical spine. After discussion with the surgeon patient has agreed to surgical intervention. REVIEW OF SYSTEMS: General: No weight loss, malaise or fevers. Neurological: Negative for: delirium, dementia, multiple sclerosis, Parkinson's disease, seizures, TIA and strokes. Respiratory: Negative for: asthma, COPD, current cough, dyspnea, home oxygen, orthopnea, pneumonia within 6 weeks, tobacco use, URI < 2 weeks and obstructive sleep apnea. Cardiovascular: Positive for: CAD, hyperlipidemia, hypertension (PATIENT DENIES HTN) and murmur/valvular heart disease (murmur) Negative for: AICD/PPM, atrial fibrillation, chest pain, DVT/PE and valve surgery. GI: Positive for: diverticulitis and heartburn Negative for: abdominal pain, dysphagia, GERD, hepatitis, liver disease, nausea and vomiting. : CKD STAGE 3 Positive for: frequent urination, urinary incontinence and nocturia >1 time per night (4 TIMES). Negative for: decreased stream, on dialysis, dysuria, hematuria, nephrolithiasis and urgency. Endocrine: Positive for: diabetes mellitus. Patient's diabetes mellitus is controlled by insulin. Negative for: hyperthyroidism and hypothyroidism. Hematology: Positive for: anemia and anemia of chronic disease. Negative for: hemophilia, thrombocytopenia, transfusion of at least 4 units within 72 hours prior to surgery and chronic anti-coagulation/platelet meds. Oncology: Negative for: chemo within 30 days and radiotherapy within 90 days. Psych: Positive for: depression. Negative for: anxiety and bipolar disorder. Musculoskeletal: See HPI. Positive for: back pain, joint pain (NECK PAIN , LEFT ANKLE) and swelling (ANKLES SOMETIMES). Skin: Negative for lesions, rash and itching. Implanted Devices: Has implanted device Implants: DEXICOM,. PAST MEDICAL HISTORY Diagnosis Date Arthritis Breast cancer (HCC) 2018 right Chronic kidney disease, stage III (moderate) (HCC) Coronary artery disease DM type 2 (diabetes mellitus, type 2) (HCC) HTN (hypertension) pt denies Hyperlipidemia Snoring 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) PAST SURGICAL HISTORY Procedure Laterality Date ABDOMINAL SURGERY HX ANESTH, SECTION 1981 BREAST LUMPECTOMY HX Left 1979 BREAST SURGERY HX Bilateral 2017 mastectomy COLON SURGERY HX 2017 colorectal cancer COLONOSCOPY 08/22/2021 repeat in 1 year COLONOSCOPY - DIAGNOSTIC 09/20/2020 EGD 08/22/2021 EYE SURGERY HX Bilateral 2012 cataract F COLONOSCOPY WITH BIOPSY 08/01/2019 Dr. Marifer HIGUERA COLECTOMY PRTL W/COLOPXTSTMY LW ANAST 09/20/2019 Dr. Tash HIGUERA MOBLJ SPLENIC FLXR PFRMD W/PRTL COLECTOMY 09/20/2019 Dr. Bianchi MASTECTOMY, SIMPLE, COMPLETE 09/13/2017 right breast mastectomy, right axillary sentinal lymph node [facility], left breast prophylactic breast mastectomy PAST SURGICAL HISTORY OF Left 1986 ankle repair PAST SURGICAL HISTORY OF Left 1979 Fibrosis excised from Breast PAST SURGICAL HISTORY OF 07/2021 Excision Basal Cell, Nose PROCEDURE RM-COLONSCOPY W/BX 2013 TONSILLECTOMY HX as a child FAMILY HISTORY Problem Relation Age of Onset Cancer Mother Thyroid cancer dx late 50's Skin Cancer Mother dx 70's Breast Cancer Mother 83 Bone cancer dx 84, possible mets vs primary Stroke Father 39 other (stroke) Father Breast Cancer Sister dx late 50's; dx contralateral breasta cancer in early 60's Diabetes Sister Diabetes Brother Hypertension Brother Psychiatry Brother Schizophrenia Diabetes Maternal Grandmother GI Maternal Grandmother 62 Pancreatitis vs pancreatic cancer Stroke Paternal Grandmother Heart disease Paternal Grandfather Breast Cancer Maternal Aunt dx 80's Breast Cancer Maternal Aunt dx late 70's Stroke Maternal Aunt 80 Cancer Maternal Uncle Leukemia dx 60's Cancer Paternal Uncle Cancer NOS dx 80's other (Hirschsprung's disease) Other Social History Tobacco Use Smoking status: Former Current packs/day: 0.00 Average packs/day: 1 pack/day for 16.0 years (16.0 ttl pk-yrs) Types: Cigarettes Start date: 08/02/1975 Quit date: 08/02/1991 Years since quittin.9 Smokeless tobacco: Never Vaping Use Vaping status: Never Used Substance Use Topics Alcohol use: Yes Comment: wine every night Drug use: No Prior to Admission medications as of 07/07/24 1310 Medication Sig Last Dose Taking omega-3 DHA-EPA (FISH OIL) 1,200 (144-216) mg capsule Take 1 capsule by mouth once daily. Taking Yes acetaminophen (TYLENOL) 325 mg cap Take by mouth as needed for pain. Taking Yes ibuprofen (ADVIL) 200 mg tablet Take 400 mg by mouth as needed for pain. Taking Yes magnesium oxide (MAG-OX) 400 mg (241.3 mg magnesium) tablet Take 400 mg by mouth once daily. TakingYes oxybutynin ER (DITROPAN XL) 10 mg 24 hr tablet Take 10 mg by mouth once daily. Taking Yes NOVOLOG FLEXPEN 100 unit/mL inpn Inject 25 Units subcutaneously three times daily. Taking Yes LANTUS SOLOSTAR 100 unit/mL (3 mL) inpn Inject 30-35 Units subcutaneously daily at bedtime. Taking Yes alendronate (FOSAMAX) 70 mg tablet Take 1 tablet by mouth every other week. Taking Yes Omeprazole 40 mg capsule Take 1 capsule by mouth once daily. Taking Yes simvastatin (ZOCOR) 10 mg tablet Take 1 tablet by mouth once daily. Taking Yes valsartan (DIOVAN) 40 mg tablet Take 1 tablet by mouth two times a day. Taking Yes aspirin, enteric coated (ASPIRIN, ENTERIC COATED) 81 mg EC tablet Take 81 mg by mouth once daily. Taking Yes ONETOUCH ULTRA TEST test strip three times daily. No medication comments found. ALLERGIES Allergen Reactions Celebrex [Celecoxib] Hives Femara [Letrozole] Other: See Comments Severe muscle & joint pain Ramipril Anaphylaxis Vioxx [Rofecoxib] Hives Ferumoxytol Other: See Comments Objective PHYSICAL EXAM: General: alert and oriented and healthy appearance. Pertinent negatives noted - not distressed. Skin: normal color, no rash or lesions. HEENT: Cardiovascular: regular rate and rhythm, normal S1 and S2, no rub, murmurs, or gallop. H/o murmur. No murmur auscultated today. . Respiratory: normal breath sounds, no wheezes or crackles. Abdomen: bowel sounds present and soft. Pertinent negatives noted - not tender. Extremities: no deformity, no edema or tenderness, no joint swelling or clubbing. SEE HPI. Neurological: Gait normal. No weakness or sensory deficit. PAIN ASSESSMENT: Pain Pain Level: 6 (NECK) Frequency: Continuous VITALS: BP 135/77 Pulse 77 Temp (Src) 98.9 (Temporal) Resp 14 Ht 5' 1 (1.55m) Wt 184 lb (83.5kg) SpO2 96% BMI 34.78 kg/(m^2). Diagnostic tests reviewed for today's visit: Lab Value Units Date High Low HB 11.2 g/dL 07/04/2024 15.5 11.5 HCT 33.9 % 07/04/2024 46.0 36.0 WBC 5.96 k/uL 07/04/2024 11.00 3.70 PLT 265 k/uL 07/04/2024 400 150 NA No results within date range. K No results within date range. GLUC No results within date range. BUN No results within date range. CREAT No results within date range. PTSEC 11.8 sec 07/07/2024 <13.1 INR 1.1 no uni* 07/07/2024 1.3 0.9 APTT 24.3 sec 07/07/2024 32.4 23.0 ALT No results within date range. AST No results within date range. TBILI No results within date range. TSH No results within date range. Lab Value Units Date High Low HCGQT No results within date range. UHCG No results within date range. HCG, BODY* No results within date range. Lab Value Units Date High Low ABORHD No results within date range. ABSCREEN No results within date range. Hemoglobin A1C (%) Date Value 06/22/2003 6.9 12/29/2002 6.6 No results found for this or any previous visit (from the past 8760 hour(s)). No results found for this or any previous visit (from the past 02164 hour(s)). ARISCAT risk index interpretation 0 to 25 points: Low risk: 1.6% pulmonary complication rate 26 to 44 points: Intermediate risk: 13.3% pulmonary complication rate 45 to 123 points: High risk: 42.1% pulmonary complication rate The Following Tests/Procedures Have Been Initiated: EKG, chest x-ray, type and screen,CBC, PT/INR/PTT, UA, urine culture, CMP, MRSA ordered by surgeon for PAT. BENSON chlorhexidine gluconate wash given with patient instructions. Assessment/Plan 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) [M48.02, G99.2] PLAN Planned Procedure: ARTHRODESIS CERVICAL POSTERIOR, BELOW C2 1ST SINGLE LEVEL--C4-T1 PCDF , DECOMPRESSION LAMINECTOMY CERVICAL, FACETECTOMY AND FORAMINOTOMY, SINGLE [place] MUJICA I spent a total of 60 minutes on the date of the service which included preparing to see the patient, [id number] patient care, completing clinical documentation, obtaining and/or reviewing separately obtained history, performing a medically appropriate examination, and counseling and educating the patient/family/caregiver. Instructions Given to Patient: Instructions located in the after visit summary. Patient given verbal and written preop instructions and voices comprehension and compliance. SIGNATURE: Irish Downing APRN.CNP PATIENT NAME: Orion Sorensen DATE: July 07, 2024 TIME: 12:59 PM PAGER/CONTACT #: [facility]12-06-2024 History and physical note* Irish Downing APRN.CNP - 07/07/2024 12:59 PM EST Images from the original note were not included. [facility] HISTORY AND PHYSICAL EXAMINATION SERVICE DATE: 07/07/2024 SERVICE TIME: 4:16 PM PRIMARY CARE PHYSICIAN: Ivonne Avila MD Assessment Patient has the following medical conditions which may affect giovani-operative course: Cardiac murmur Patient states she had an echocardiogram this year at [facility]. I faxed a request to get a copy of the echo I do not see it in epic. No murmur auscultated today during her physical exam. Patient states she was just told recently she had a heart murmur. She is asymptomatic denies shortness of breath or chest pain. Hypercholesterolemia Simvastatin 10 mg. Continue as prescribed Fish oil. Stop 7 days Gastroesophageal reflux disease Omeprazole 40 mg. 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 -Lantus 35 to 40 units at bedtime. Instructed to get day of surgery insulin orders from prescribingprovider. -NovoLog 28 to 30 units 3 times a day. Instructed to get day of surgery insulin orders from prescribing provider. -Hemoglobin A1c ordered by surgeon today. Check glucose day of surgery. Malignant neoplasm of upper-outer quadrant of right breast in female, estrogen receptor positive (HCC) No BP or IV sticks in the right arm. Stage 3 chronic kidney disease (HCC) Per patient kidney disease is managed by primary care. Medical optimization pending. -CMP collected today. Creatinine Date Value Ref Range Status 07/06/2023 1.18 (H) 0.58 - 0.96 mg/dL Final 07/07/2022 1.06 (H) 0.58 - 0.96 mg/dL Final 07/08/2021 1.07 (H) 0.58 - 0.96 mg/dL Final 07/09/2020 1.01 (H) 0.58 - 0.96 mg/dL Final Anemia of chronic disease Patient denies issues with anemia. Does not take oral supplements. Has not had any recent transfusions. -CBC collected today Hemoglobin (g/dL) Date Value 07/04/2024 11.2 07/06/2023 10.9 07/07/2022 10.5 07/08/2021 11.2 07/09/2020 11.7 HGB (g/dL) Date Value 09/22/2019 9.7 09/21/2019 9.5 Pre-op examination Patient has the following medical conditions which may affect giovani-operative course addressed in assessment and plan today. -Patient admitted to some issues with her memory. Patient lives alone. Today patient had 2 Dexcom patches on. She had forgot to take off the previous patch. Epic message sent to [facility]. [facility] recommends geriatric consult after surgery while admitted. 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 Lares Coronary artery disease involving [place] coronary artery Managed by primary care per patient. Medical optimization pending. No cardiac stents per patient. -EKG done today in pretesting. -Fax request to primary care for copy of recent echo. -Aspirin 81 mg. Instructed to get instructions from surgeon. -On a statin. [place] Activity Status Index: METS: Climb a flight of stairs or walk up a hill (5.50 METs) DASI Score: 5.5 Patient denies any chest pain or undue shortness of breath with the above physical activity. Clinical Frailty Scale: 3. Well, with treated comorbid disease ARISCAT Score: Age: 51-80 Preoperative SpO2: >=96% Respiratory infection in the last month: No Preoperative anemia: No Surgical incision: peripheral Duration of surgery: 2-3 hrs Emergency procedure: No ARISCAT Score: 19 ANESTHESIA FINDINGS: Intubation History: No history of difficult intubation. No abnormal airway history Significant Anesthesia Considerations: none Airway History: NECK IS STIFF R/T PAIN, SEE HPI No history of difficult airway No abnormal airway history I - PHYSICAL EVALUATION AIRWAY Patient intubated: No. DENTAL Dental findings: teeth intact. II - ANESTHESIA PLAN Anesthetic Plan: general Beta Mj Monitoring Plan Post Procedure Analgesic Plan Prepared for Surgery: CONSULTS: The following consults have been initiated at this time: primary care/internal medicine. Planned Anesthetic: general The Following Tests/Procedures Have Been Initiated: Orders Placed This Encounter omega-3 DHA-EPA (FISH OIL) 1,200 (144-216) mg capsule Sig: Take 1 capsule by mouth once daily. acetaminophen (TYLENOL) 325 mg cap Sig: Take by mouth as needed for pain. ibuprofen (ADVIL) 200 mg tablet Sig: Take 400 mg by mouth as needed for pain. REASON FOR VISIT: Orion Sorensen is a 73 year old female who is scheduled for * No surgery found * at the request of Dr. Bruno Lares for routine H&P. My final recommendation will be communicated back to the requesting physician by way of shared medical record or letter. Subjective The patient has the following: COVID-19 Immunization Status Overdue - Covid-19 Vaccine () Overdue since 04/02/2024 08/07/2022 Outside Immunization: SARS-CoV-2 CV19 mRNA tozinameran 12y+vax 07/28/2021 Imm Admin: COVID-19 original vaccine, age 12+ yr, monovalent (PFIZER- BIONTECH - PURPLE TOP) 11/27/2020 Imm Admin: COVID-19 original vaccine, age 12+ yr, monovalent (PFIZER- BIONTECH - PURPLE TOP) Only the first 3 history entries have been loaded, but more history exists. CHIEF COMPLAINT: The reason for this visit is to perform a comprehensive review of the patient's past medical history, assess their current health status and obtain any additional testing required based on anesthesia guidelines. We will also identify any potential anesthesia problems or contraindications to the planned procedure. HPI: Orion Sorensen is a 73 year old female that presents for pre anesthesia testing. She has a history of right breast cancer, chronic kidney disease, coronary artery disease, diabetes type 2, cholesterol and cervical stenosis. Denies trauma to the neck. 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 She states the last 2 years neck pain has gradually gotten worse. She has constant aching stabbing neck pain that radiates down to the shoulders. She did physical therapy but that did not help. She has numbness and tingling in both hands but worse in the right hand.Uses Advil and Tylenol as needed for pain. June 08, [address] scan of the cervical spine. After discussion with the surgeon patient has agreed to surgical intervention. REVIEW OF SYSTEMS: General: No weight loss, malaise or fevers. Neurological: Negative for: delirium, dementia, multiple sclerosis, Parkinson's disease, seizures, TIA and strokes. Respiratory: Negative for: asthma, COPD, current cough, dyspnea, home oxygen, orthopnea, pneumonia within 6 weeks, tobacco use, URI < 2 weeks and obstructive sleep apnea. Cardiovascular: Positive for: CAD, hyperlipidemia, hypertension (PATIENT DENIES HTN) and murmur/valvular heart disease (murmur) Negative for: AICD/PPM, atrial fibrillation, chest pain, DVT/PE and valve surgery. GI: Positive for: diverticulitis and heartburn Negative for: abdominal pain, dysphagia, GERD, hepatitis, liver disease, nausea and vomiting. : CKD STAGE 3 Positive for: frequent urination, urinary incontinence and nocturia >1 time per night (4 TIMES). Negative for: decreased stream, on dialysis, dysuria, hematuria, nephrolithiasis and urgency. Endocrine: Positive for: diabetes mellitus. Patient's diabetes mellitus is controlled by insulin. Negative for: hyperthyroidism and hypothyroidism. Hematology: Positive for: anemia and anemia of chronic disease. Negative for: hemophilia, thrombocytopenia, transfusion of at least 4 units within 72 hours prior to surgery and chronic anti-coagulation/platelet meds. Oncology: Negative for: chemo within 30 days and radiotherapy within 90 days. Psych: Positive for: depression. Negative for: anxiety and bipolar disorder. Musculoskeletal: See HPI. Positive for: back pain, joint pain (NECK PAIN , LEFT ANKLE) and swelling (ANKLES SOMETIMES). Skin: Negative for lesions, rash and itching. Implanted Devices: Has implanted device Implants: DEXICOM,. PAST MEDICAL HISTORY Diagnosis Date Arthritis Breast cancer (HCC) 2018 right Chronic kidney disease, stage III (moderate) (HCC) Coronary artery disease DM type 2 (diabetes mellitus, type 2) (HCC) HTN (hypertension) pt denies Hyperlipidemia Snoring 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) PAST SURGICAL HISTORY Procedure Laterality Date ABDOMINAL SURGERY HX ANESTH, SECTION 1981 BREAST LUMPECTOMY HX Left 1979 BREAST SURGERY HX Bilateral 2017 mastectomy COLON SURGERY HX 2017 colorectal cancer COLONOSCOPY 08/22/2021 repeat in 1 year COLONOSCOPY - DIAGNOSTIC 09/20/2020 EGD 08/22/2021 EYE SURGERY HX Bilateral 2012 cataract F COLONOSCOPY WITH BIOPSY 08/01/2019 Dr. Marifer HIGUERA COLECTOMY PRTL W/COLOPXTSTMY LW ANAST 09/20/2019 Dr. Tash HIGUERA MOBLJ SPLENIC FLXR PFRMD W/PRTL COLECTOMY 09/20/2019 Dr. Bianchi MASTECTOMY, SIMPLE, COMPLETE 09/13/2017 right breast mastectomy, right axillary sentinal lymph node [facility], left breast prophylactic breast mastectomy PAST SURGICAL HISTORY OF Left 1985 ankle repair PAST SURGICAL HISTORY OF Left 1978 Fibrosis excised from Breast PAST SURGICAL HISTORY OF 07/2021 Excision Basal Cell, Nose PROCEDURE RM-COLONSCOPY W/BX 2013 TONSILLECTOMY HX as a child FAMILY HISTORY Problem Relation Age of Onset Cancer Mother Thyroid cancer dx late 50's Skin Cancer Mother dx 70's Breast Cancer Mother 83 Bone cancer dx 84, possible mets vs primary Stroke Father 39 other (stroke) Father Breast Cancer Sister dx late 50's; dx contralateral breasta cancer in early 60's Diabetes Sister Diabetes Brother Hypertension Brother Psychiatry Brother Schizophrenia Diabetes Maternal Grandmother GI Maternal Grandmother 62 Pancreatitis vs pancreatic cancer Stroke Paternal Grandmother Heart disease Paternal Grandfather Breast Cancer Maternal Aunt dx 80's Breast Cancer Maternal Aunt dx late 70's Stroke Maternal Aunt 80 Cancer Maternal Uncle Leukemia dx 60's Cancer Paternal Uncle Cancer NOS dx 80's other (Hirschsprung's disease) Other Social History Tobacco Use Smoking status: Former Current packs/day: 0.00 Average packs/day: 1 pack/day for 16.0 years (16.0 ttl pk-yrs) Types: Cigarettes Start date: 08/02/1975 Quit date: 08/02/1991 Years since quittin.9 Smokeless tobacco: Never Vaping Use Vaping status: Never Used Substance Use Topics Alcohol use: Yes Comment: wine every night Drug use: No Prior to Admission medications as of 07/07/24 1310 Medication Sig Last Dose Taking omega-3 DHA-EPA (FISH OIL) 1,200 (144-216) mg capsule Take 1 capsule by mouth once daily. Taking Yes acetaminophen (TYLENOL) 325 mg cap Take by mouth as needed for pain. Taking Yes ibuprofen (ADVIL) 200 mg tablet Take 400 mg by mouth as needed for pain. Taking Yes magnesium oxide (MAG-OX) 400 mg (241.3 mg magnesium) tablet Take 400 mg by mouth once daily. TakingYes oxybutynin ER (DITROPAN XL) 10 mg 24 hr tablet Take 10 mg by mouth once daily. Taking Yes NOVOLOG FLEXPEN 100 unit/mL inpn Inject 25 Units subcutaneously three times daily. Taking Yes LANTUS SOLOSTAR 100 unit/mL (3 mL) inpn Inject 30-35 Units subcutaneously daily at bedtime. Taking Yes alendronate (FOSAMAX) 70 mg tablet Take 1 tablet by mouth every other week. Taking Yes Omeprazole 40 mg capsule Take 1 capsule by mouth once daily. Taking Yes simvastatin (ZOCOR) 10 mg tablet Take 1 tablet by mouth once daily. Taking Yes valsartan (DIOVAN) 40 mg tablet Take 1 tablet by mouth two times a day. Taking Yes aspirin, enteric coated (ASPIRIN, ENTERIC COATED) 81 mg EC tablet Take 81 mg by mouth once daily. Taking Yes ONETOUCH ULTRA TEST test strip three times daily. No medication comments found. ALLERGIES Allergen Reactions Celebrex [Celecoxib] Hives Femara [Letrozole] Other: See Comments Severe muscle & joint pain Ramipril Anaphylaxis Vioxx [Rofecoxib] Hives Ferumoxytol Other: See Comments Objective PHYSICAL EXAM: General: alert and oriented and healthy appearance. Pertinent negatives noted - not distressed. Skin: normal color, no rash or lesions. HEENT: Cardiovascular: regular rate and rhythm, normal S1 and S2, no rub, murmurs, or gallop. H/o murmur. No murmur auscultated today. . Respiratory: normal breath sounds, no wheezes or crackles. Abdomen: bowel sounds present and soft. Pertinent negatives noted - not tender. Extremities: no deformity, no edema or tenderness, no joint swelling or clubbing. SEE HPI. Neurological: Gait normal. No weakness or sensory deficit. PAIN ASSESSMENT: Pain Pain Level: 6 (NECK) Frequency: Continuous VITALS: BP 135/77 Pulse 77 Temp (Src) 98.9 (Temporal) Resp 14 Ht 5' 1 (1.55m) Wt 184 lb (83.5kg) SpO2 96% BMI 34.78 kg/(m^2). Diagnostic tests reviewed for today's visit: Lab Value Units Date High Low HB 11.2 g/dL 07/04/2024 15.5 11.5 HCT 33.9 % 07/04/2024 46.0 36.0 WBC 5.96 k/uL 07/04/2024 11.00 3.70 PLT 265 k/uL 07/04/2024 400 150 NA No results within date range. K No results within date range. GLUC No results within date range. BUN No results within date range. CREAT No results within date range. PTSEC 11.8 sec 07/07/2024 <13.1 INR 1.1 no uni* 07/07/2024 1.3 0.9 APTT 24.3 sec 07/07/2024 32.4 23.0 ALT No results within date range. AST No results within date range. TBILI No results within date range. TSH No results within date range. Lab Value Units Date High Low HCGQT No results within date range. UHCG No results within date range. HCG, BODY* No results within date range. Lab Value Units Date High Low ABORHD No results within date range. ABSCREEN No results within date range. Hemoglobin A1C (%) Date Value 06/22/2003 6.9 12/29/2002 6.6 No results found for this or any previous visit (from the past 8760 hour(s)). No results found for this or any previous visit (from the past 49869 hour(s)). ARISCAT risk index interpretation 0 to 25 points: Low risk: 1.6% pulmonary complication rate 26 to 44 points: Intermediate risk: 13.3% pulmonary complication rate 45 to 123 points: High risk: 42.1% pulmonary complication rate The Following Tests/Procedures Have Been Initiated: EKG, chest x-ray, type and screen,CBC, PT/INR/PTT, UA, urine culture, CMP, MRSA ordered by surgeon for PAT. BENSON chlorhexidine gluconate wash given with patient instructions. 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 Instructions Given to Patient: Instructions located in the after visit summary. Patient given verbal and written preop instructions and voices comprehension and compliance. SIGNATURE: Irish Downing APRN.CNP PATIENT NAME: Orion Sorensen DATE: July 07, 2024 TIME: 12:59 PM PAGER/CONTACT #: [facility] NoteHNO ID: [id number] Author: ISACC DAVIS MD Service: ? Author Type: Physician Type: Progress Notes Filed: 07/04/2024 12:09 Note Text: (Elements copied from my note dated July 06, 2023, have been reviewed and updated where appropriate, and all reflect current assessment and medical decision making from today's encounter, July 04, 2024) HISTORY OF PRESENT ILLNESS: Orion Sorensen is a 72 year old female who presented with abnormal mammogram. Patient had a stereotactic needle biopsy on June 16 2017 of her right breast. Biopsy was positive for invasive moderately differentiated ductal carcinoma, ER strongly +95%, IL +60% HER-2/cecil negative +1 patient has not been feeling well for the last 6 months with alternating constipation and diarrhea. She had a screening colonoscopy [address] Caal. She had 1 abnormal adenomatous polyp removed. Also patient denied weight loss she has chronic back pain from her weight and osteoporosis. She is on calcium and Fosamax for treatment osteoporosis. Her diagnostic mammogram show a 2.5 cm irregular mass in the right breast suspicious for malignancy in the upper outer quadrant at 9 o'clock. Patient has no previous breast biopsy, trauma or infection. She has family history of breast cancer both older sister bilateral breast cancer and mother has breast cancer.they were tested for BRCA1 and BRCA2 were negative. S/p right mastectomy with sentinel lymph node biopsy and prophylactic left breast mastectomy done on 09/13/17. She had two sentinel lymph nodes that were negative for metastatic disease. Final pathology revealed that an intramammary lymph node was positive for metastasis not in her axillary lymph nodes. Adjuvant chemotherapy treatment: Cyclophosphamide/Docetaxel x 4 ( 10/13/17 - 01/04/18 ) Tamoxifen since December 2017 through 2022. Here for follow up, feels well. No vaginal bleeding CLINICAL IMPRESSION: Breast cancer as above. pT2N1a History anemia RECOMMENDATION/PLAN: 1. Back in 1 year Written and verbal health teaching given to patient, patient verbalizes understanding and agrees with treatment plan. PAST MEDICAL HISTORY Diagnosis Date Arthritis Breast cancer (HCC) 2018 right Chronic kidney disease, stage III (moderate) (HCC) Coronary artery disease DM type 2 (diabetes mellitus, type 2) (HCC) HTN (hypertension) pt denies Hyperlipidemia Snoring PAST SURGICAL HISTORY Procedure Laterality Date ABDOMINAL SURGERY HX ANESTH, SECTION BREAST SURGERY HX COLON SURGERY HX COLONOSCOPY 08/22/2021 repeat in 1 year COLONOSCOPY - DIAGNOSTIC 09/20/2020 EGD 08/22/2021 EYE SURGERY HX F COLONOSCOPY WITH BIOPSY 08/01/2019 Dr. Marifer Foy FRACTURE SURGERY LAPS COLECTOMY PRTL W/COLOPXTSTMY LW ANAST 09/20/2019 Dr. Tahs HIGUERA MOBLJ SPLENIC FLXR PFRMD W/PRTL COLECTOMY 09/20/2019 Dr. Bianchi MASTECTOMY, SIMPLE, COMPLETE 09/13/2017 right breast mastectomy, right axillary sentinal lymph node [facility], left breast prophylactic breast mastectomy PAST SURGICAL HISTORY OF Left 1986 ankle repair PAST SURGICAL HISTORY OF Left 1979 Fibrosis excised from Breast PAST SURGICAL HISTORY OF 07/2021 Excision Basal Cell, Nose PROCEDURE RM-COLONSCOPY W/BX 2014 SKIN BIOPSY HX TONSILLECTOMY HX FAMILY HISTORY Problem Relation Age of Onset Cancer Mother Thyroid cancer dx late 50's Skin Cancer Mother dx 70's Breast Cancer Mother 83 Bone cancer dx 84, possible mets vs primary Stroke Father 39 Breast Cancer Sister dx late 50's; dx contralateral breasta cancer in early 60's Diabetes Sister Diabetes Brother Hypertension Brother Diabetes Maternal Grandmother GI Maternal Grandmother 62 Pancreatitis vs pancreatic cancer Stroke Paternal Grandmother Heart disease Paternal Grandfather Psychiatry Brother Schizophrenia Cancer Paternal Uncle Cancer NOS dx 80's Breast Cancer Maternal Aunt dx 80's Breast Cancer Maternal Aunt dx late 70's Stroke Maternal Aunt 80 Cancer Maternal Uncle Leukemia dx 60's other (Hirschsprung's disease) Other Social History Tobacco Use Smoking status: Former Current packs/day: 0.00 Average packs/day: 1 pack/day for 16.0 years (16.0 ttl pk-yrs) Types: Cigarettes Start date: 08/02/1975 Quit date: 08/02/1991 Years since quittin.9 Smokeless tobacco: Never Vaping Use Vaping status: Never Used Substance Use Topics Alcohol use: Yes Comment: wine cooler twice weekly Drug use: No ALLERGIES: ALLERGIES Allergen Reactions Celebrex [Celecoxib] Hives Femara [Letrozole] Other: See Comments Severe muscle AND joint pain Ramipril Anaphylaxis Vioxx [Rofecoxib] Hives CURRENT OUTPATIENT MEDICATIONS: magnesium oxide (MAG-OX) 400 mg (241.3 mg magnesium) tablet Take 400 mg by mouth once daily. oxybutynin ER (DITROPAN XL) 10 mg 24 hr tablet Take 10 mg by mouth once daily. NOVOLOG FLEXPEN 100 unit/mL inpn Inject 25 Units subcu (more content not included)...[facility]12-03-2024 History of Present illness Narrative* Isacc Davis MD - 07/04/2024 11:37 AM EST (Elements copied from my note dated July 06, 2023, have been reviewed and updated where appropriate, and all reflect current assessment and medical decision making from today's encounter, 2023) HISTORY OF PRESENT ILLNESS: Orion Sorensen is a 72 year old female who presented with abnormal mammogram. Patient had a stereotactic needle biopsy on June 16 2017 of her right breast. Biopsy was positive for invasive moderately differentiated ductal carcinoma, ER strongly +95%, IL +60% HER-2/cecil negative +1 patient has not been feeling well for the last 6 months with alternating constipation and diarrhea. She had a screening colonoscopy [address] Caal. She had 1 abnormal adenomatous polyp removed. Also patient denied weight loss she has chronic back pain from her weight and osteoporosis. She is on calcium and Fosamax for treatment osteoporosis. Her diagnostic mammogram show a 2.5 cm irregular mass in the right breast suspicious for malignancyin the upper outer quadrant at 9 o'clock. Patient has no previous breast biopsy, trauma or infection. She has family history of breast cancer both older sister bilateral breast cancer and mother has breast cancer.they were tested for BRCA1 and BRCA2 were negative. S/p right mastectomy with sentinel lymph node biopsy and prophylactic left breast mastectomy done on 09/13/17. She had two sentinel lymph nodes that were negative for metastatic disease. Final pathology revealed that an intramammary lymph node was positive for metastasis not in her axillary lymph nodes. Adjuvant chemotherapy treatment: Cyclophosphamide/Docetaxel x 4 ( 10/13/17 - 01/04/18 ) Tamoxifen since December 2017 through 2022. Here for follow up, feels well. No vaginal bleeding CLINICAL IMPRESSION: Breast cancer as above. [id number] History anemia RECOMMENDATION/PLAN: 1. Back in 1 year Written and verbal health teaching given to patient, patient verbalizes understanding and agrees with treatment plan. PAST MEDICAL HISTORY Diagnosis Date Arthritis Breast cancer (HCC) 2018 right Chronic kidney disease, stage III (moderate) (HCC) Coronary artery disease DM type 2 (diabetes mellitus, type 2) (HCC) HTN (hypertension) pt denies Hyperlipidemia Snoring PAST SURGICAL HISTORY Procedure Laterality Date ABDOMINAL SURGERY HX ANESTH, SECTION BREAST SURGERY HX COLON SURGERY HX COLONOSCOPY 08/22/2021 repeat in 1 year COLONOSCOPY - DIAGNOSTIC 09/20/2020 EGD 08/22/2021 EYE SURGERY HX F COLONOSCOPY WITH BIOPSY 08/01/2019 Dr. Marifer Foy FRACTURE SURGERY LAPS COLECTOMY PRTL W/COLOPXTSTMY LW ANAST 09/20/2019 Dr. Tash HIGUERA MOBLJ SPLENIC FLXR PFRMD W/PRTL COLECTOMY 09/20/2019 Dr. Bianchi MASTECTOMY, SIMPLE, COMPLETE 09/13/2017 right breast mastectomy, right axillary sentinal lymph node [facility], left breast prophylactic breast mastectomy PAST SURGICAL HISTORY OF Left 1985 ankle repair PAST SURGICAL HISTORY OF Left 1978 Fibrosis excised from Breast PAST SURGICAL HISTORY OF 07/2021 Excision Basal Cell, Nose PROCEDURE RM-COLONSCOPY W/BX 2013 SKIN BIOPSY HX TONSILLECTOMY HX FAMILY HISTORY Problem Relation Age of Onset Cancer Mother Thyroid cancer dx late 50's Skin Cancer Mother dx 70's Breast Cancer Mother 83 Bone cancer dx 84, possible mets vs primary Stroke Father 39 Breast Cancer Sister dx late 50's; dx contralateral breasta cancer in early 60's Diabetes Sister Diabetes Brother Hypertension Brother Diabetes Maternal Grandmother GI Maternal Grandmother 62 Pancreatitis vs pancreatic cancer Stroke Paternal Grandmother Heart disease Paternal Grandfather Psychiatry Brother Schizophrenia Cancer Paternal Uncle Cancer NOS dx 80's Breast Cancer Maternal Aunt dx 80's Breast Cancer Maternal Aunt dx late 70's Stroke Maternal Aunt 80 Cancer Maternal Uncle Leukemia dx 60's other (Hirschsprung's disease) Other Social History Tobacco Use Smoking status: Former Current packs/day: 0.00 Average packs/day: 1 pack/day for 16.0 years (16.0 ttl pk-yrs) Types: Cigarettes Start date: 08/02/1975 Quit date: 08/02/1991 Years since quittin.9 Smokeless tobacco: Never Vaping Use Vaping status: Never Used Substance Use Topics Alcohol use: Yes Comment: wine cooler twice weekly Drug use: No ALLERGIES: ALLERGIES Allergen Reactions Celebrex [Celecoxib] Hives Femara [Letrozole] Other: See Comments Severe muscle & joint pain Ramipril Anaphylaxis Vioxx [Rofecoxib] Hives CURRENT OUTPATIENT MEDICATIONS: magnesium oxide (MAG-OX) 400 mg (241.3 mg magnesium) tablet Take 400 mg by mouth once daily. oxybutynin ER (DITROPAN XL) 10 mg 24 hr tablet Take 10 mg by mouth once daily. NOVOLOG FLEXPEN 100 unit/mL inpn Inject 25 Units subcutaneously three times daily. LANTUS SOLOSTAR 100 unit/mL (3 mL) inpn Inject 30-35 Units subcutaneously daily at bedtime. alendronate (FOSAMAX) 70 mg tablet Take 1 tablet by mouth every other week. ONETOUCH ULTRA TEST test strip three times daily. Omeprazole 40 mg capsule Take 1 capsule by mouth once daily. simvastatin (ZOCOR) 10 mg tablet Take 1 tablet by mouth once daily. valsartan (DIOVAN) 40 mg tablet Take 1 tablet by mouth two times a day. aspirin, enteric coated (ASPIRIN, ENTERIC COATED) 81 mg EC tablet Take 81 mg by mouth once daily. CALCIUM CARBONATE/VITAMIN D3 (CALTRATE 600 + D ORAL) Take 1 capsule by mouth twice daily. REVIEW OF SYSTEMS: GENERAL: No fever, night sweats, weight loss or malaise. All other reviewed and negative other than HPI. PHYSICAL EXAMINATION: VITAL SIGNS: BP 136/76 Pulse 88 Temp 98.1 Wt 181 lb (82.1kg) SpO2 97% GENERAL APPEARANCE: Well appearing, in no acute distress, alert and oriented x3, well-hydrated, well nourished. CHEST: No nodules or adenopathy I spent a total of 30 minutes on the date of the service which included preparing to see the patient, [id number] patient care, completing clinical documentation, obtaining and/or reviewing separately obtained history, counseling and educating the patient/family/caregiver, ordering medications, traci ts, or procedures, independently interpreting results (not separately reported), and communicating results to the patient/family/caregiver. Electronically Signed: Isacc Davis MD July 04, 2024 [facility] [address] [facility]* Neelima Roberts LPN - 07/04/2024 11:26 AM EST est. Pt. 1 yr. F/U , discuss recent lab results Breast cancer and colorectal cancer Neelima Roberts LPN [facility]12-03-[facility] Nurse Note* Neelima Roberts LPN - 07/04/2024 11:26 AM EST est. Pt. 1 yr. F/U , discuss recent lab results Breast cancer and colorectal cancer Neelima Roberts LPN documented [facility]24 NoteHNO ID: [id number] Author: MARIFER FOY MD Service: ? Author Type: Physician Type: Progress Notes Filed: 06/22/2024 16:06 Note Text: Orion Sorensen 1950 REFERRING PHYSICIAN: No ref. provider found CHIEF COMPLAINT: Consult (Hernia, left abdomen) HPI: The patient is a 73 year old pleasant female presents with ventral incisional hernia. She is s/p laparoscopic colon surgery in 2019. She last had a colonoscopy in 2021. She has noted chronic constipation for years. She states that the hernia is not bothering her and she denies abdominal pain. She denies obstructive gastrointestinal and/or urinary symptoms. She is scheduled for back surgery 07/21/2024. PAST MEDICAL HISTORY Diagnosis Date Arthritis Breast cancer (HCC) 2018 right Chronic kidney disease, stage III (moderate) (HCC) Coronary artery disease DM type 2 (diabetes mellitus, type 2) (HCC) HTN (hypertension) pt denies Hyperlipidemia Snoring PAST SURGICAL HISTORY Procedure Laterality Date ABDOMINAL SURGERY HX ANESTH, SECTION BREAST SURGERY HX COLON SURGERY HX COLONOSCOPY 08/22/2021 repeat in 1 year COLONOSCOPY - DIAGNOSTIC 09/20/2020 EGD 08/22/2021 EYE SURGERY HX F COLONOSCOPY WITH BIOPSY 08/01/2019 Dr. Marifer Foy FRACTURE SURGERY LAPS COLECTOMY PRTL W/COLOPXTSTMY LW ANAST 09/20/2019 Dr. Bianchi LAPS MOBLJ SPLENIC FLXR PFRMD W/PRTL COLECTOMY 09/20/2019 Dr. Bianchi MASTECTOMY, SIMPLE, COMPLETE 09/13/2017 right breast mastectomy, right axillary sentinal lymph node [facility], left breast prophylactic breast mastectomy PAST SURGICAL HISTORY OF Left 1986 ankle repair PAST SURGICAL HISTORY OF Left 1979 Fibrosis excised from Breast PAST SURGICAL HISTORY OF 07/2021 Excision Basal Cell, Nose PROCEDURE RM-COLONSCOPY W/BX 2013 SKIN BIOPSY HX TONSILLECTOMY HX Current Outpatient Medications Medication Sig magnesium oxide (MAG-OX) 400 mg (241.3 mg magnesium) tablet Take 400 mg by mouth once daily. oxybutynin ER (DITROPAN XL) 10 mg 24 hr tablet Take 10 mg by mouth once daily. NOVOLOG FLEXPEN 100 unit/mL inpn Inject 25 Units subcutaneously three times daily. LANTUS SOLOSTAR 100 unit/mL (3 mL) inpn Inject 30-35 Units subcutaneously daily at bedtime. alendronate (FOSAMAX) 70 mg tablet Take 1 tablet by mouth every other week. ONETOUCH ULTRA TEST test strip three times daily. Omeprazole 40 mg capsule Take 1 capsule by mouth once daily. simvastatin (ZOCOR) 10 mg tablet Take 1 tablet by mouth once daily. valsartan (DIOVAN) 40 mg tablet Take 1 tablet by mouth two times a day. aspirin, enteric coated (ASPIRIN, ENTERIC COATED) 81 mg EC tablet Take 81 mg by mouth once daily. CALCIUM CARBONATE/VITAMIN D3 (CALTRATE 600 + D ORAL) Take 1 capsule by mouth twice daily. No current facility-administered medications for this visit. ALLERGIES: Celebrex [Celecoxib], Femara [Letrozole], Ramipril, and Vioxx [Rofecoxib] PERSONAL HISTORY: Social History Tobacco Use Smoking status: Former Current packs/day: 0.00 Average packs/day: 1 pack/day for 16.0 years (16.0 ttl pk-yrs) Types: Cigarettes Start date: 08/02/1975 Quit date: 08/02/1991 Years since quittin.9 Smokeless tobacco: Never Vaping Use Vaping status: Never Used Substance Use Topics Alcohol use: Yes Comment: wine cooler twice weekly Drug use: No FAMILY HISTORY Problem Relation Age of Onset Cancer Mother Thyroid cancer dx late 50's Skin Cancer Mother dx 70's Breast Cancer Mother 83 Bone cancer dx 84, possible mets vs primary Stroke Father 39 Breast Cancer Sister dx late 50's; dx contralateral breasta cancer in early 60's Diabetes Sister Diabetes Brother Hypertension Brother Diabetes Maternal Grandmother GI Maternal Grandmother 62 Pancreatitis vs pancreatic cancer Stroke Paternal Grandmother Heart disease Paternal Grandfather Psychiatry Brother Schizophrenia Cancer Paternal Uncle Cancer NOS dx 80's Breast Cancer Maternal Aunt dx 80's Breast Cancer Maternal Aunt dx late 70's Stroke Maternal Aunt 80 Cancer Maternal Uncle Leukemia dx 60's other (Hirschsprung's disease) Other The review of systems data was entered by the nurse and reviewed by la Nursing Notes: Angely Mcgregor LPN 06/19/2024 1:05 PM Signed REVIEW OF SYSTEMS: General: The patient denies fatigue, denies weight loss, denies weight gain, denies feeling hot, and denies feelings of cold. Eyes: The patient denies glaucoma, denies eye injury/surgery, wears glasses or contacts. Ear/Nose/Throat: The patient notes allergies, denies hayfever, denies ear infections, and denies bloody noses. Cardiovascular: The patient denies chest pain, denies heart disease, denies high blood pressure,denies cardiac stent, denies prior heart attack, denies irregular heart beat, denies high cholesterol, denies poor circulation, denies heart failure, other cardiac issues, denies claudication, denies cold feet, denies (more content not included)...[facility]11-18-2024 History of Present illness Narrative* Marifer Foy MD - 06/19/2024 1:22 PM EST Orion Sorensen 1950 REFERRING PHYSICIAN: No ref. provider found CHIEF COMPLAINT: Consult (Hernia, left abdomen) HPI: The patient is a 73 year old pleasant female presents with ventral incisional hernia. She is s/p laparoscopic colon surgery in 2019. She last had a colonoscopy in 2021. She has noted chronic constipation for years. She states that the hernia is not bothering her and she denies abdominal pain. She denies obstructive gastrointestinal and/or urinary symptoms. She is scheduled for back surgery 07/21/2024. PAST MEDICAL HISTORY Diagnosis Date Arthritis Breast cancer (HCC) 2017 right Chronic kidney disease, stage III (moderate) (HCC) Coronary artery disease DM type 2 (diabetes mellitus, type 2) (HCC) HTN (hypertension) pt denies Hyperlipidemia Snoring PAST SURGICAL HISTORY Procedure Laterality Date ABDOMINAL SURGERY HX ANESTH, SECTION BREAST SURGERY HX COLON SURGERY HX COLONOSCOPY 08/22/2021 repeat in 1 year COLONOSCOPY - DIAGNOSTIC 09/20/2020 EGD 08/22/2021 EYE SURGERY HX F COLONOSCOPY WITH BIOPSY 08/01/2019 Dr. Marifer Foy FRACTURE SURGERY LAPS COLECTOMY PRTL W/COLOPXTSTMY LW ANAST 09/20/2019 Dr. Tash HIGUERA MOBLJ SPLENIC FLXR PFRMD W/PRTL COLECTOMY 09/20/2019 Dr. Bianchi MASTECTOMY, SIMPLE, COMPLETE 09/13/2017 right breast mastectomy, right axillary sentinal lymph node [facility], left breast prophylactic breast mastectomy PAST SURGICAL HISTORY OF Left 1986 ankle repair PAST SURGICAL HISTORY OF Left 1979 Fibrosis excised from Breast PAST SURGICAL HISTORY OF 07/2021 Excision Basal Cell, Nose PROCEDURE RM-COLONSCOPY W/BX 2013 SKIN BIOPSY HX TONSILLECTOMY HX Current Outpatient Medications Medication Sig magnesium oxide (MAG-OX) 400 mg (241.3 mg magnesium) tablet Take 400 mg by mouth once daily. oxybutynin ER (DITROPAN XL) 10 mg 24 hr tablet Take 10 mg by mouth once daily. NOVOLOG FLEXPEN 100 unit/mL inpn Inject 25 Units subcutaneously three times daily. LANTUS SOLOSTAR 100 unit/mL (3 mL) inpn Inject 30-35 Units subcutaneously daily at bedtime. alendronate (FOSAMAX) 70 mg tablet Take 1 tablet by mouth every other week. ONETOUCH ULTRA TEST test strip three times daily. Omeprazole 40 mg capsule Take 1 capsule by mouth once daily. simvastatin (ZOCOR) 10 mg tablet Take 1 tablet by mouth once daily. valsartan (DIOVAN) 40 mg tablet Take 1 tablet by mouth two times a day. aspirin, enteric coated (ASPIRIN, ENTERIC COATED) 81 mg EC tablet Take 81 mg by mouth once daily. CALCIUM CARBONATE/VITAMIN D3 (CALTRATE 600 + D ORAL) Take 1 capsule by mouth twice daily. No current facility-administered medications for this visit. ALLERGIES: Celebrex [Celecoxib], Femara [Letrozole], Ramipril, and Vioxx [Rofecoxib] PERSONAL HISTORY: Social History Tobacco Use Smoking status: Former Current packs/day: 0.00 Average packs/day: 1 pack/day for 16.0 years (16.0 ttl pk-yrs) Types: Cigarettes Start date: 08/02/1975 Quit date: 08/02/1991 Years since quittin.9 Smokeless tobacco: Never Vaping Use Vaping status: Never Used Substance Use Topics Alcohol use: Yes Comment: wine cooler twice weekly Drug use: No FAMILY HISTORY Problem Relation Age of Onset Cancer Mother Thyroid cancer dx late 50's Skin Cancer Mother dx 70's Breast Cancer Mother 83 Bone cancer dx 84, possible mets vs primary Stroke Father 39 Breast Cancer Sister dx late 50's; dx contralateral breasta cancer in early 60's Diabetes Sister Diabetes Brother Hypertension Brother Diabetes Maternal Grandmother GI Maternal Grandmother 62 Pancreatitis vs pancreatic cancer Stroke Paternal Grandmother Heart disease Paternal Grandfather Psychiatry Brother Schizophrenia Cancer Paternal Uncle Cancer NOS dx 80's Breast Cancer Maternal Aunt dx 80's Breast Cancer Maternal Aunt dx late 70's Stroke Maternal Aunt 80 Cancer Maternal Uncle Leukemia dx 60's other (Hirschsprung's disease) Other The review of systems data was entered by the nurse and reviewed by me Nursing Notes: Angely Mcgregor LPN 06/19/2024 1:05 PM Signed REVIEW OF SYSTEMS: General: The patient denies fatigue, denies weight loss, denies weight gain, denies feeling hot, and denies feelings of cold. Eyes: The patient denies glaucoma, denies eye injury/surgery, wears glasses or contacts. Ear/Nose/Throat: The patient notes allergies, denies hayfever, denies ear infections, and denies bloody noses. Cardiovascular: The patient denies chest pain, denies heart disease, denies high blood pressure,denies cardiac stent, denies prior heart attack, denies irregular heart beat, denies high cholesterol, denies poor circulation, denies heart failure, other cardiac issues, denies claudication, denies cold feet, denies peripheral arterial stent. Respiratory: The patient denies tuberculosis, denies pneumonia, denies frequent cough, denies pulmonary embolism, denies shortness of breath, and denies coughing up blood. Gastrointestinal: The patient denies difficulty swallowing, notes acid reflux, denies ulcers, denies vomiting, denies jaundice/hepatitis, denies gallbladder problems, notes black or tarry stools, notes hemorrhoids, notes bleeding from rectum, notes diverticulitis, notes constipation, notes diarrhea, denies loss of stool control, and denies hernias. Kidney/Bladder: The patient denies kidney stones, denies urine infections, and denies bloody urine. Skin: The patient notes a history of skin cancer, denies bleeding/changing moles, and denies a history of skin rash. Neurologic: The patient denies a history of epilepsy/convulsions, denies headaches, denies head/spinal injuries, and denies stroke/TIA. Psychiatric: The patient denies psychiatric medications, denies depression, and denies voices, denies substance abuse. Endocrine: The patient denies thyroid disorders, notes diabetes, and denies hormonal problems. Hematologic: The patient denies a history of bruising, denies bleeding, and notes anemia, denies blood clots. Infections: The patient notes a history of measles and mumps, denies rheumatic fever, and denies sexually transmitted diseases. Musculoskeletal: The patient notes back pain/injury, notes back problems, denies sciatica, denies knee/foot trouble, denies arthritis, or denies gout. When was patient's last Mammogram screening? 2016 Last Colonoscopy: 2021 Angely Mcgregor LPN PHYSICAL EXAMINATION: General: The patient is 73 year old female, well nourished, well hydrated in no acute distress. Thepatient is oriented to time, place, and person. VITALS: Blood pressure 138/58, pulse 101, temperature 36.3 C (97.3 F), height 156.2 cm (5' 1.5), weight 84.6 kg (186 lb 9.6 oz), SpO2 97%. Body mass index is 34.69 kg/m . Head: Normal cephalic, atraumatic Eyes: pupils are equally round, sclera are clear/anicteric, wearing glasses Neck is supple with no tracheal deviation Cardiac: normal heart sounds, regular Respiratory: Normal respiratory excursion and pattern. Abdominal exam: soft and benign, well healed midline incisional sites - periumbilical and lower abdomen, palpable reducible hernia of periumbilical site - non tender Extremities: no clubbing, cyanosis or edema. Neuro: non focal Psych: normal mood Assessment IMPRESSION: ventral incisional hernia PLAN: I have discussed above with patient. I have offered ventral hernia repair. I have told patient the risks of procedure, including but not limited to: infection, bleeding, scartissue, injury to any blood vessels/nerves, injury to bowel/bladder, recurrence of hernia, etc. - she understands. She does not feel any abdominal pain and is not interested in surgery at this time. Diagnoses: (K43.9) Ventral hernia without obstruction or gangrene (primary encounter diagnosis) I have confirmed and edited as necessary, the PFSH and ROS obtained by others. I spent a total of 31 minutes on the date of the service which included preparing to see the patient with review of any pertinent laboratory studies/radiological imaging/medical records from other medical facilities such as [facility], [id number] patient care, obtaining oral medical history from the patient in this encounter, performing a medically appropriate examination, counseling and educating the patient/family/caregiver, and completing appropriate medical documentation. Mariefr Foy MD [facility]* Angely Mcgregor LPN - 06/19/2024 12:59 PM EST REVIEW OF SYSTEMS: General: The patient denies fatigue, denies weight loss, denies weight gain, denies feeling hot, and denies feelings of cold. Eyes: The patient denies glaucoma, denies eye injury/surgery, wears glasses or contacts. Ear/Nose/Throat: The patient notes allergies, denies hayfever, denies ear infections, and denies bloody noses. Cardiovascular: The patient denies chest pain, denies heart disease, denies high blood pressure,denies cardiac stent, denies prior heart attack, denies irregular heart beat, denies high cholesterol, denies poor circulation, denies heart failure, other cardiac issues, denies claudication, denies cold feet, denies peripheral arterial stent. Respiratory: The patient denies tuberculosis, denies pneumonia, denies frequent cough, denies pulmonary embolism, denies shortness of breath, and denies coughing up blood. Gastrointestinal: The patient denies difficulty swallowing, notes acid reflux, denies ulcers, denies vomiting, denies jaundice/hepatitis, denies gallbladder problems, notes black or tarry stools, notes hemorrhoids, notes bleeding from rectum, notes diverticulitis, notes constipation, notes diarrhea, denies loss of stool control, and denies hernias. Kidney/Bladder: The patient denies kidney stones, denies urine infections, and denies bloody urine. Skin: The patient notes a history of skin cancer, denies bleeding/changing moles, and denies a history of skin rash. Neurologic: The patient denies a history of epilepsy/convulsions, denies headaches, denies head/spinal injuries, and denies stroke/TIA. Psychiatric: The patient denies psychiatric medications, denies depression, and denies voices, denies substance abuse. Endocrine: The patient denies thyroid disorders, notes diabetes, and denies hormonal problems. Hematologic: The patient denies a history of bruising, denies bleeding, and notes anemia, denies blood clots. Infections: The patient notes a history of measles and mumps, denies rheumatic fever, and denies sexually transmitted diseases. Musculoskeletal: The patient notes back pain/injury, notes back problems, denies sciatica, denies knee/foot trouble, denies arthritis, or denies gout. When was patient's last Mammogram screening? 2016 Last Colonoscopy: 2021 Angely Mcgregor LPN [facility]11-18-2024 Nurse Note* Meche AngelyBRYNN - 06/19/2024 12:59 PM EST REVIEW OF SYSTEMS: General: The patient denies fatigue, denies weight loss, denies weight gain, denies feeling hot, and denies feelings of cold. Eyes: The patient denies glaucoma, denies eye injury/surgery, wears glasses or contacts. Ear/Nose/Throat: The patient notes allergies, denies hayfever, denies ear infections, and denies bloody noses. Cardiovascular: The patient denies chest pain, denies heart disease, denies high blood pressure,denies cardiac stent, denies prior heart attack, denies irregular heart beat, denies high cholesterol, denies poor circulation, denies heart failure, other cardiac issues, denies claudication, denies cold feet, denies peripheral arterial stent. Respiratory: The patient denies tuberculosis, denies pneumonia, denies frequent cough, denies pulmonary embolism, denies shortness of breath, and denies coughing up blood. Gastrointestinal: The patient denies difficulty swallowing, notes acid reflux, denies ulcers, denies vomiting, denies jaundice/hepatitis, denies gallbladder problems, notes black or tarry stools, notes hemorrhoids, notes bleeding from rectum, notes diverticulitis, notes constipation, notes diarrhea, denies loss of stool control, and denies hernias. Kidney/Bladder: The patient denies kidney stones, denies urine infections, and denies bloody urine. Skin: The patient notes a history of skin cancer, denies bleeding/changing moles, and denies a history of skin rash. Neurologic: The patient denies a history of epilepsy/convulsions, denies headaches, denies head/spinal injuries, and denies stroke/TIA. Psychiatric: The patient denies psychiatric medications, denies depression, and denies voices, denies substance abuse. Endocrine: The patient denies thyroid disorders, notes diabetes, and denies hormonal problems. Hematologic: The patient denies a history of bruising, denies bleeding, and notes anemia, denies blood clots. Infections: The patient notes a history of measles and mumps, denies rheumatic fever, and denies sexually transmitted diseases. Musculoskeletal: The patient notes back pain/injury, notes back problems, denies sciatica, denies knee/foot trouble, denies arthritis, or denies gout. When was patient's last Mammogram screening? 2015 Last Colonoscopy: 2021 Angely Mcgregor LPN documented [facility] History of Present illness Narrative* Bruno Lares MD - 06/19/2024 8:15 AM EST NEUROSURGERY TELEPHONE VISIT PROGRESS NOTE Bruno Lares MD This is a telephone encounter initiated for an established patient, parent or guardian not originating from a related Evaluation & Management service provided within the previous 7 days nor leading to an Evaluation & Management service or procedure within the next 24 hours or soonest available appointment. Date of visit: June 19, 2024 Time of Service: 814 Patient Name: Ms.Ann Sorensen Date of : 1950 Current Age: [age] year old Sex: female MRN/E# [id number] Last Office Visit: 06/08/2024 Orion Sorensen has consented to this telephone encounter. Persons Present: patient and daughter (adult) Chief Complaint/Reason: Pre-op questions Past Medical/Surgical History: Orion Sorensen is a 73 year old female who is for neurosurgical evaluation. The patient has a history of breast cancer, CAD, DM2, HTN, HLD. HPI: Ms. Sorensen was seen in the office on 05/22/2024 as a new patient with reports of progressive R>L arm and hand paresthesia, pain and weakness for the past several years. Her family was present and felt she had declined congitively as well with upper extremity tremors. She had trouble with dexterity and fine motor skills. Imaging showed moderate to severe stenosis at C5-6, and severe stenosis at C6-7. The compression was mostly anterior. It was explained that she would require surgical intervention. Her A1C was elevated, which would need to come down some. She was last seen in the office on 06/08/2024 with continued neck pain into the RUE with paresthesiathat she felt had continued worsening. She would require a posterior decompression and fusion at C4-T1. Given her cognitive changes and no family present, a virtual visit was scheduled to further discuss with family present, prompting her visit today. PREVIOUS CONSERVATIVE TREATMENTS: None PREVIOUS SURGERY: None Surgical Risk Factors: Smoking status: denies Anticoagulants/antiplatelets: +ASA 81mg Diabetic: yes, last A1C 7.7 - [facility] BMI: 35.06 PAST MEDICAL HISTORY Diagnosis Date Arthritis Breast cancer (HCC) 2018 right Coronary artery disease DM type 2 (diabetes mellitus, type 2) (HCC) HTN (hypertension) pt denies Hyperlipidemia Snoring PAST SURGICAL HISTORY Procedure Laterality Date ABDOMINAL SURGERY HX ANESTH, SECTION BREAST SURGERY HX COLON SURGERY HX COLONOSCOPY 08/22/2021 repeat in 1 year COLONOSCOPY - DIAGNOSTIC 09/20/2020 EGD 08/22/2021 EYE SURGERY HX F COLONOSCOPY WITH BIOPSY 08/01/2019 Dr. Marifer Foy FRACTURE SURGERY LAPS COLECTOMY PRTL W/COLOPXTSTMY LW ANAST 09/20/2019 Dr. Bianchi LAPS MOBLJ SPLENIC FLXR PFRMD W/PRTL COLECTOMY 09/20/2019 Dr. Bianchi MASTECTOMY, SIMPLE, COMPLETE 09/13/2017 right breast mastectomy, right axillary sentinal lymph node [facility], left breast prophylactic breast mastectomy PAST SURGICAL HISTORY OF Left 1986 ankle repair PAST SURGICAL HISTORY OF Left 1978 Fibrosis excised from Breast PAST SURGICAL HISTORY OF 07/2021 Excision Basal Cell, Nose PROCEDURE RM-COLONSCOPY W/BX 2013 SKIN BIOPSY HX TONSILLECTOMY HX FAMILY HISTORY Problem Relation Age of Onset Cancer Mother Thyroid cancer dx late 50's Skin Cancer Mother dx 70's Breast Cancer Mother 83 Bone cancer dx 84, possible mets vs primary Stroke Father 39 Breast Cancer Sister dx late 50's; dx contralateral breasta cancer in early 60's Diabetes Sister Diabetes Brother Hypertension Brother Diabetes Maternal Grandmother GI Maternal Grandmother 62 Pancreatitis vs pancreatic cancer Stroke Paternal Grandmother Heart disease Paternal Grandfather Psychiatry Brother Schizophrenia Cancer Paternal Uncle Cancer NOS dx 80's Breast Cancer Maternal Aunt dx 80's Breast Cancer Maternal Aunt dx late 70's Stroke Maternal Aunt 80 Cancer Maternal Uncle Leukemia dx 60's other (Hirschsprung's disease) Other ALLERGIES Allergen Reactions Celebrex [Celecoxib] Hives Femara [Letrozole] Other: See Comments Severe muscle & joint pain Ramipril Anaphylaxis Vioxx [Rofecoxib] Hives Current Outpatient Medications Medication Sig Dispense Refill magnesium oxide (MAG-OX) 400 mg (241.3 mg magnesium) tablet Take 400 mg by mouth once daily. oxybutynin ER (DITROPAN XL) 10 mg 24 hr tablet Take 10 mg by mouth once daily. NOVOLOG FLEXPEN 100 unit/mL inpn Inject 25 Units subcutaneously three times daily. LANTUS SOLOSTAR 100 unit/mL (3 mL) inpn Inject 30-35 Units subcutaneously daily at bedtime. alendronate (FOSAMAX) 70 mg tablet Take 1 tablet by mouth every other week. ONETOUCH ULTRA TEST test strip three times daily. Omeprazole 40 mg capsule Take 1 capsule by mouth once daily. simvastatin (ZOCOR) 10 mg tablet Take 1 tablet by mouth once daily. valsartan (DIOVAN) 40 mg tablet Take 1 tablet by mouth two times a day. aspirin, enteric coated (ASPIRIN, ENTERIC COATED) 81 mg EC tablet Take 81 mg by mouth once daily. CALCIUM CARBONATE/VITAMIN D3 (CALTRATE 600 + D ORAL) Take 1 capsule by mouth twice daily. No current facility-administered medications for this visit. REVIEW OF SYSTEMS Review of Systems Data Reviewed: IMAGING STUDIES: No new imaging obtained Assessment: Cervical stenosis with myelopathy Plan: OR for C4-T1 PCDF on 07/21, all questions answered Time Spent: 11-20 minutes Attribution: The following portions of the patient's history were reviewed, confirmed, and updated as necessary:allergies, current medications, past family history, past medical history, past social history, past surgical history, problem list, HPI, and ROS obtained by others. Some elements may be copied from a previous office note and have been reviewed/updated where appropriate. All portions reflect current medical decision making from today. The clinical and radiographic findings as well as the risks, benefits and alternatives of treatmenthave been reviewed in detail with the patient. Advised to call the office if symptoms worsen or new symptoms develop. Patient expressed understanding and is in agreement with plan. Bruno Lares MD [facility] General Medical Decision Making: Problems: Moderate: 2+ stable chronic illnesses Data: Unique source(s) for external note(s) reviewed: 1 Unique test result(s) reviewed: 1 Risk: High: Decision on elective major surgery w/ risk factors Medical Decision Making Level: 4 - Moderate This note was partially generated using Dot VN voice recognition system, and there may be some incorrect words, spellings, and punctuation that were not noted in checking the note before saving. documented in this encounterMer[facility]11-18-2024 [facility]2024 History of Present illness Narrative* Bruno Lares MD - 06/08/2024 10:30 AM EST Images from the original note were not included. NEUROSURGERY FOLLOW UP OFFICE NOTE Bruno Lares MD [facility] Date of visit: June 08, 2024 Patient Name: Ms.Ann Sorensen Date of : 1950 Current Age: [age] year old Sex: female MRN/E# [id number] Last Office Visit: 06/06/2024 Chief Complaint: Patient presents with: Established Patient Past Medical/Surgical History: Orion Sorensen is a 73 year old female who is for neurosurgical evaluation. The patient has a history of breast cancer, CAD, DM2, HTN, HLD. HPI: Ms. Sorensen was seen in the office on 05/22/2024 as a new patient with reports of progressive R>L arm and hand paresthesia, pain and weakness for the past several years. Her family was present and felt she had declined congitively as well with upper extremity tremors. She had trouble with dexterity and fine motor skills. Imaging showed moderate to severe stenosis at C5-6, and severe stenosis at C6-7. The compression was mostly anterior. It was explained that she would require surgical intervention. Her A1C was elevated, which would need to come down some. She was to follow up with her PCP in the week following, andrcaquel was advised to follow up in the office 2 weeks after repeat labs were drawn, prompting her visit today. The patient presents to the office today with continued neck pain and RUE pain and paresthesia thatracquel feels has worsened since her last visit. She said this pain and paresthesia is worsened in the night time and she has trouble sleeping due to this. She is here for evaluation and plan of care. Symptoms: RUE numbness/tingling, neck pain PREVIOUS CONSERVATIVE TREATMENTS: None PREVIOUS SURGERY: None Surgical Risk Factors: Smoking status: denies Anticoagulants/antiplatelets: +ASA 81mg Diabetic: yes, last A1C 7.7 - [facility] BMI: 35.53 PAIN EVALUATION 06/06/2024 1624 Pain Level: 5 Pain Location: Neck-Anterior Description: Aching;Stiffness;Tenderness Duration Units: Months Frequency: Continuous Intervention/Comfort measure: Medication;Reposition Comments: Range of motion hurts PAST MEDICAL HISTORY Diagnosis Date Arthritis Breast cancer (HCC) 2018 right Coronary artery disease DM type 2 (diabetes mellitus, type 2) (HCC) HTN (hypertension) pt denies Hyperlipidemia Snoring PAST SURGICAL HISTORY Procedure Laterality Date ABDOMINAL SURGERY HX ANESTH, SECTION BREAST SURGERY HX COLON SURGERY HX COLONOSCOPY 08/22/2021 repeat in 1 year COLONOSCOPY - DIAGNOSTIC 09/20/2020 EGD 08/22/2021 EYE SURGERY HX F COLONOSCOPY WITH BIOPSY 08/01/2019 Dr. Marifer Foy FRACTURE SURGERY LAPS COLECTOMY PRTL W/COLOPXTSTMY LW ANAST 09/20/2019 Dr. Bianchi LAPS MOBLJ SPLENIC FLXR PFRMD W/PRTL COLECTOMY 09/20/2019 Dr. Bianchi MASTECTOMY, SIMPLE, COMPLETE 09/13/2017 right breast mastectomy, right axillary sentinal lymph node [facility], left breast prophylactic breast mastectomy PAST SURGICAL HISTORY OF Left 1986 ankle repair PAST SURGICAL HISTORY OF Left 1979 Fibrosis excised from Breast PAST SURGICAL HISTORY OF 07/2021 Excision Basal Cell, Nose PROCEDURE RM-COLONSCOPY W/BX 2013 SKIN BIOPSY HX TONSILLECTOMY HX FAMILY HISTORY Problem Relation Age of Onset Cancer Mother Thyroid cancer dx late 50's Skin Cancer Mother dx 70's Breast Cancer Mother 83 Bone cancer dx 84, possible mets vs primary Stroke Father 39 Breast Cancer Sister dx late 50's; dx contralateral breasta cancer in early 60's Diabetes Sister Diabetes Brother Hypertension Brother Diabetes Maternal Grandmother GI Maternal Grandmother 62 Pancreatitis vs pancreatic cancer Stroke Paternal Grandmother Heart disease Paternal Grandfather Psychiatry Brother Schizophrenia Cancer Paternal Uncle Cancer NOS dx 80's Breast Cancer Maternal Aunt dx 80's Breast Cancer Maternal Aunt dx late 70's Stroke Maternal Aunt 80 Cancer Maternal Uncle Leukemia dx 60's other (Hirschsprung's disease) Other ALLERGIES Allergen Reactions Celebrex [Celecoxib] Hives Femara [Letrozole] Other: See Comments Severe muscle & joint pain Ramipril Anaphylaxis Vioxx [Rofecoxib] Hives Current Outpatient Medications Medication Sig Dispense Refill magnesium oxide (MAG-OX) 400 mg (241.3 mg magnesium) tablet Take 400 mg by mouth once daily. oxybutynin ER (DITROPAN XL) 10 mg 24 hr tablet Take 10 mg by mouth once daily. NOVOLOG FLEXPEN 100 unit/mL inpn Inject 25 Units subcutaneously three times daily. LANTUS SOLOSTAR 100 unit/mL (3 mL) inpn Inject 30-35 Units subcutaneously daily at bedtime. alendronate (FOSAMAX) 70 mg tablet Take 1 tablet by mouth every other week. ONETOUCH ULTRA TEST test strip three times daily. Omeprazole 40 mg capsule Take 1 capsule by mouth once daily. simvastatin (ZOCOR) 10 mg tablet Take 1 tablet by mouth once daily. valsartan (DIOVAN) 40 mg tablet Take 1 tablet by mouth two times a day. aspirin, enteric coated (ASPIRIN, ENTERIC COATED) 81 mg EC tablet Take 81 mg by mouth once daily. CALCIUM CARBONATE/VITAMIN D3 (CALTRATE 600 + D ORAL) Take 1 capsule by mouth twice daily. No current facility-administered medications for this visit. REVIEW OF SYSTEMS Review of Systems Constitutional: Negative for diaphoresis, fatigue and fever. HENT: Negative for ear pain, hearing loss and tinnitus. Eyes: Negative for photophobia, pain and visual disturbance. Respiratory: Negative for cough, chest tightness and shortness of breath. Cardiovascular: Negative for chest pain. Gastrointestinal: Negative for constipation, diarrhea, nausea and vomiting. Endocrine: Negative for polydipsia, polyphagia and polyuria. Genitourinary: Negative for difficulty urinating, frequency and urgency. Musculoskeletal: Positive for neck pain and neck stiffness. Negative for back pain and gait problem. Skin: Negative for color change and rash. Neurological: Positive for numbness. Negative for dizziness and weakness. Psychiatric/Behavioral: Negative for agitation and confusion. The patient is not nervous/anxious. OBJECTIVE: BP 132/80 Pulse 71 Resp 16 Wt 181 lb (82.1kg) SpO2 97% PHYSICAL EXAM: Mental State : Alert, memory function unremarkable. Attention span and concentration normal for patient's age. Speech normal, no receptive or expressive speech deficit. Recent and remote memory normal. Orientation : Oriented to person, place and time. Cranial Nerves : Grossly intact. Sensory: Normal Sensation in upper and lower extremities and trunk to touch and noxious stimuli. Motor: Normal muscle tone and bulk. No tremor or uncontrollable movements. No spasticity or tremor. Gait and Station: Casual gait is normal including stance, stride, and arm swing. STRENGTH: Upper Extremity Strength Exam Right Left Elbow Flexion 4+/5 4+/5 Elbow Extension 4+/5 4+/5 Finger Flexion 4-/5 4/5 Finger Extension 4/5 4/5 Finger Abduction 4-/5 4-/5 Lower Extremity Strength Exam Right Left Hip Flexion 5/5 5/5 Knee Flexion 5/5 5/5 Knee Extension 5/5 5/5 Dorsiflexion 5/5 5/5 Plantarflexion 5/5 5/5 Reflexes Right Left Biceps C5-C6 +2 +2 Triceps C7-C8 +2 +2 Wrist C5-6 +2 +2 Patellar L3-4 +2 +2 Achilles L5-S1 +2 +2 Pathologic Reflexes Right Left [place]'s Positive Positive Clonus Negative Negative Data Review IMAGING STUDIES: CT C-spine 06/08/2024: Moderate to severe degenerative changes. Partially calcified disks at C5-6 and C6-7. Some of the ligamentum flavum is also calcified. Assessment & Plan: Ms. Sorensen returns for follow-up to discuss surgery for her cervical stenosis with myelopathy. She feels that her right upper extremity numbness, tingling, and weakness has progressed over the last several weeks. She had her CT today, which shows partially calcified disks at C5-6 and C6-7. Fortunately, I do not think it would be safe to approach this anteriorly, and she will require a posterior decompression and fusion from C4-T1. I explained this to her. Her daughter is not with her today,and I believe it would be helpful to discuss the change in plan with her and her family, given someof her recent cognitive changes. I will schedule a visit virtually to discuss the updated plan. Her recent A1c was 7.7, which is acceptable. She is scheduled for surgery in July. All questions were answered. Attribution: The following portions of the patient's history were reviewed, confirmed, and updated as necessary:allergies, current medications, past family history, past medical history, past social history, past surgical history, problem list, HPI, and ROS obtained by others. Some elements may be copied from a previous office note and have been reviewed/updated where appropriate. All portions reflect current medical decision making from today. The clinical and radiographic findings as well as the risks, benefits and alternatives of treatmenthave been reviewed in detail with the patient. Advised to call the office if symptoms worsen or new symptoms develop. Patient expressed understanding and is in agreement with plan. Bruno Lares MD [facility] Medical Decision Making: Problems: Moderate: 2+ stable chronic illnesses Data: Unique source(s) for external note(s) reviewed: 1 Unique test result(s) reviewed: 2 Risk: High: High risk from testing/treatment and Decision on elective major surgery w/ risk factors Medical Decision Making Level: 4 - Moderate This note was partially generated using Dot VN voice recognition system, and there may be some incorrect words, spellings, and punctuation that were not noted in checking the note before saving. documented in this encounterMer[facility]2024 [facility]2024 History of Present illness Narrative* Sandra Aguiar RT(R) - 06/08/2024 10:00 AM EST Radiology Service Progress Note PATIENT NAME: Orion Sorensen DATE OF SERVICE: June 08, 2024 TIME: 10:12 AM PATIENT IDENTITY VERIFICATION COMPLETED USING TWO (2) IDENTIFIERS: Name and Date of confirmedby patient verbally. FALL SCREENING: Has the patient had 2 falls in the last year or 1 fall with injury or currently using an Ambulatory Assistive Device (Walker, Cane, Wheelchair, Crutches, etc.)? No PATIENT GENDER DATA: Female. status: : No status: NO. PATIENT RELEVANT IMPLANT DATA REVIEWED: Not Applicable PATIENT PRESENTS WITH AN IMPLANTABLE OR ATTACHED DEPARTMENT MGR: Yes [facility] RADIOLOGY DEPARTMENT: CT; Exam(s) Completed: Spine PERIPHERAL IV DATA: Not applicable SIGNED BY: RT Ritu(R) June 08, 2024 10:12 AM documented in this encounterMercy Health St. [facility]2024 [facility]11-05-2024 Telephone encounter Note* Telephone Encounter - Alison Caldwell - 06/06/2024 12:20 PM EST Called and spoke with patient regarding all surgery details. Answered all questions. [facility]11-05-2024 Miscellaneous Notes* Telephone Encounter - Alison Caldwell - 06/06/2024 12:20 PM EST Called and spoke with patient regarding all surgery details. Answered all questions. documented in this encounterMercy [facility]. [facility]11-01-2024 Telephone encounter Note * Telephone Encounter - Jia Fitzpatrick RN - 06/02/2024 1:40 PM EDT HgbA1C order faxed to [facility] [phone] Jia Fitzpatrick RN [facility]11-01-2024 Miscellaneous Notes* Telephone Encounter - Jia Fitzpatrick RN - 06/02/2024 1:40 PM EDT HgbA1C order faxed to [facility] [phone] Jia Fitzpatrick RN documented in this encounterMercy [facility]. [facility]10-31-2024 History of Present illness Narrative* Jia Fitzpatrick RN - 06/01/2024 10:00 AM EDT A1C for surgical planning per Dr. Lares. Jia Fitzpatrick RN documented in this encounterMercy Health St. [facility]10-21-2024 History of Present illness Narrative* Bruno Lares MD - 05/22/2024 11:30 AM EDT NEUROSURGERY CONSULT NOTE Bruno Lares MD [facility] Date of visit: May 22, 2024 Patient Name: Ms.Ann Sorensen Date of : 1950 Current Age: [age] year old Sex: female MRN/E# [id number] Last Office Visit: Visit date not found Chief Complaint: No chief complaint on file. Past Medical/Surgical History: Orion Sorensen is a 73 year old female who is for neurosurgical evaluation. The patient has a history of breast cancer, CAD, DM2, HTN, HLD. Smoking: denies. Alcohol Use: occasional HISTORY OF PRESENT ILLNESS : The patient presents to the office today as a new patient for evaluation of spinal stenosis. She states that she has been having progressive right greater than left upper extremity and hand numbness and tingling, pain, and weakness for the past several years. She is also been having worsening neck pain and stiffness. Her family reports some cognitive decline and upper extremity tremors as well. She is having trouble with fine motor skills and dexterity. She is here for image review, evaluation and plan of care. Symptoms: RUE numbness/tingling, neck pain PREVIOUS CONSERVATIVE TREATMENTS: None PREVIOUS SURGERY: None Surgical Risk Factors: Smoking status: denies Anticoagulants/antiplatelets: +ASA 81mg Diabetic: yes, last A1C 6.9 - 2003 BMI: 34.57 PAIN EVALUATION No data found in the last 1 encounters. PAST MEDICAL HISTORY Diagnosis Date Arthritis Breast cancer (HCC) 2018 right Coronary artery disease DM type 2 (diabetes mellitus, type 2) (HCC) HTN (hypertension) pt denies Hyperlipidemia Snoring PAST SURGICAL HISTORY Procedure Laterality Date ABDOMINAL SURGERY HX ANESTH, SECTION BREAST SURGERY HX COLON SURGERY HX COLONOSCOPY 08/22/2021 repeat in 1 year COLONOSCOPY - DIAGNOSTIC 09/20/2020 EGD 08/22/2021 EYE SURGERY HX F COLONOSCOPY WITH BIOPSY 08/01/2019 Dr. Marifer Foy FRACTURE SURGERY LAPS COLECTOMY PRTL W/COLOPXTSTMY LW ANAST 09/20/2019 Dr. Bianchi LAPS MOBLJ SPLENIC FLXR PFRMD W/PRTL COLECTOMY 09/20/2019 Dr. Bianchi MASTECTOMY, SIMPLE, COMPLETE 09/13/2017 right breast mastectomy, right axillary sentinal lymph node [facility], left breast prophylactic breast mastectomy PAST SURGICAL HISTORY OF Left 1985 ankle repair PAST SURGICAL HISTORY OF Left 1978 Fibrosis excised from Breast PAST SURGICAL HISTORY OF 07/2021 Excision Basal Cell, Nose PROCEDURE RM-COLONSCOPY W/BX 2013 SKIN BIOPSY HX TONSILLECTOMY HX FAMILY HISTORY Problem Relation Age of Onset Cancer Mother Thyroid cancer dx late 50's Skin Cancer Mother dx 70's Breast Cancer Mother 83 Bone cancer dx 84, possible mets vs primary Stroke Father 39 Breast Cancer Sister dx late 50's; dx contralateral breasta cancer in early 60's Diabetes Sister Diabetes Brother Hypertension Brother Diabetes Maternal Grandmother GI Maternal Grandmother 62 Pancreatitis vs pancreatic cancer Stroke Paternal Grandmother Heart disease Paternal Grandfather Psychiatry Brother Schizophrenia Cancer Paternal Uncle Cancer NOS dx 80's Breast Cancer Maternal Aunt dx 80's Breast Cancer Maternal Aunt dx late 70's Stroke Maternal Aunt 80 Cancer Maternal Uncle Leukemia dx 60's other (Hirschsprung's disease) Other ALLERGIES Allergen Reactions Celebrex [Celecoxib] Hives Femara [Letrozole] Other: See Comments Severe muscle & joint pain Ramipril Anaphylaxis Vioxx [Rofecoxib] Hives Current Outpatient Medications Medication Sig Dispense Refill magnesium oxide (MAG-OX) 400 mg (241.3 mg magnesium) tablet Take 400 mg by mouth once daily. oxybutynin ER (DITROPAN XL) 10 mg 24 hr tablet Take 10 mg by mouth once daily. NOVOLOG FLEXPEN 100 unit/mL inpn Inject 25 Units subcutaneously three times daily. LANTUS SOLOSTAR 100 unit/mL (3 mL) inpn Inject 30-35 Units subcutaneously daily at bedtime. alendronate (FOSAMAX) 70 mg tablet Take 1 tablet by mouth every other week. ONETOUCH ULTRA TEST test strip three times daily. Omeprazole 40 mg capsule Take 1 capsule by mouth once daily. simvastatin (ZOCOR) 10 mg tablet Take 1 tablet by mouth once daily. valsartan (DIOVAN) 40 mg tablet Take 1 tablet by mouth two times a day. aspirin, enteric coated (ASPIRIN, ENTERIC COATED) 81 mg EC tablet Take 81 mg by mouth once daily. CALCIUM CARBONATE/VITAMIN D3 (CALTRATE 600 + D ORAL) Take 1 capsule by mouth twice daily. No current facility-administered medications for this visit. REVIEW OF SYSTEMS Review of Systems OBJECTIVE: There were no vitals taken for this visit. PHYSICAL EXAM: Mental State : Alert, memory function unremarkable. Attention span and concentration normal for patient's age. Speech normal, no receptive or expressive speech deficit. Recent and remote memory normal. Orientation : Oriented to person, place and time. Cranial Nerves : Grossly intact. Sensory: Normal Sensation in upper and lower extremities and trunk to touch and noxious stimuli. Motor: Normal muscle tone and bulk. No tremor or uncontrollable movements. No spasticity or tremor. Gait and Station: Casual gait is normal including stance, stride, and arm swing. STRENGTH: Upper Extremity Strength Exam Right Left Elbow Flexion 4+/5 4+/5 Elbow Extension 4+/5 4+/5 Finger Flexion 4-/5 4/5 Finger Extension 4/5 4/5 Finger Abduction 4-/5 4-/5 Lower Extremity Strength Exam Right Left Hip Flexion 5/5 5/5 Knee Flexion 5/5 5/5 Knee Extension 5/5 5/5 Dorsiflexion 5/5 5/5 Plantarflexion 5/5 5/5 Reflexes Right Left Biceps C5-C6 +2 +2 Triceps C7-C8 +2 +2 Wrist C5-6 +2 +2 Patellar L3-4 +2 +2 Achilles L5-S1 +2 +2 Pathologic Reflexes Right Left Olmstead's Positive Positive Clonus Negative Negative Data Review IMAGING STUDIES: MRI C-spine wo contrast (on CD): Moderate to severe stenosis at C5-6. Severe stenosis at C6-7. Flex/ex C-spine: moderate to severe degenerative changes without translational instability Assessment & Plan: Ms. Sorensen presents for evaluation of chronic progressive cervical myelopathy. She has a history of progressive right upper extremity pain, numbness, tingling, and weakness, as well as some of the similar symptoms in her left arm over the last several years. She and her family think they have wo rsened over the last 6 months or so. There is also been some cognitive changes and upper extremity tremors. She brought an MRI of her cervical spine on a CD, which shows moderate to severe stenosis at C5-6, and severe stenosis at C6-7. The compression is mostly anterior. Given her symptoms, she will require C5-7 ACDF. I explained the procedure in detail as well as the risks, benefits, and alternatives to the patient and her family. I would like to get a CT scan of her cervical spine to ensure that none of these discs are calcified, as this would change the approach. I will also check a bone density scan given her history of osteoporosis. I would like her to have her A1c checked given her history of diabetes. She has had poor control in the past, but has not had any updated results soon. She is set to see her primary care doctor next week and have her levels checked. I will see her back in about 2 weeks once these additional studies are complete, and we can finalize a surgical plan. All questions were answered. Attribution: The following portions of the patient's history were reviewed, confirmed, and updated as necessary:allergies, current medications, past family history, past medical history, past social history, past surgical history, problem list, HPI, and ROS obtained by others. Some elements may be copied from a previous office note and have been reviewed/updated where appropriate. All portions reflect current medical decision making from today. The clinical and radiographic findings as well as the risks, benefits and alternatives of treatmenthave been reviewed in detail with the patient. Advised to call the office if symptoms worsen or new symptoms develop. Patient expressed understanding and is in agreement with plan. Bruno Lares MD [facility] Medical Decision Making: Problems: Moderate: New problem with uncertain prognosis Data: Unique source(s) for external note(s) reviewed: 1 Unique test result(s) reviewed: 2 Unique test(s) ordered: 1 Risk: Moderate: Decision on elective major surgery w/o risk factors High: High risk from testing/treatment Medical Decision Making Level: 4 - Moderate This note was partially generated using Dot VN voice recognition system, and there may be some incorrect words, spellings, and punctuation that were not noted in checking the note before saving. documented [facility]* Exam Date Time Procedure Performing Provider Status 02/11/24 11:29 AM Echocardiogram, Carley bean Stress - CV Auth (Verified) [facility] 05-10-2024 Telephone encounter Note* Telephone Encounter - Sharonda Portillo RN - 12/10/2023 9:45 AM EDT Care Coordination Triage Note [facility] Situation: Patient reports Other a hard knot on the left side of her neck, near her ear Background: Diagnosed with breast cancer in 2017. [address] Ryan mccormick OV notes, on Tamoxifen since December 2017 and he advised her to stop once the supply runs out. Assessment: Patient noticed a hard knot on the left side of her neck, tender when palpating. Patient denies fever, chills, redness, swelling, or the skin being warm to touch. Patient has been seeing her PCP for other matters and stated she is scheduled for an MRI of her neck and back this summer. Patient advised to contact her PCP for evaluation. If she cannot be seen today, go to express/urgent care for evaluation. Patient stated understanding. Recommendations: See PCP, patient agreeable to this. Sharonda Portillo RN December 10, 2023 9:[address] [facility]05-10-2024 Miscellaneous Notes* Telephone Encounter - Sharonda Portillo RN - 12/10/2023 9:45 AM EDT Care Coordination Triage Note [facility] Situation: Patient reports Other a hard knot on the left side of her neck, near her ear Background: Diagnosed with breast cancer in 2017. Per [address] Ryan mccormick OV notes, on Tamoxifen since December 2017 and he advised her to stop once the supply runs out. Assessment: Patient noticed a hard knot on the left side of her neck, tender when palpating. Patient denies fever, chills, redness, swelling, or the skin being warm to touch. Patient has been seeing her PCP for other matters and stated she is scheduled for an MRI of her neck and back this summer. Patient advised to contact her PCP for evaluation. If she cannot be seen today, go to express/urgent care for evaluation. Patient stated understanding. Recommendations: See PCP, patient agreeable to this. Sharonda Portillo RN December 10, 2023 9:48 AM * Telephone Encounter - Nidhi Taylor - 12/10/2023 9:07 AM EDT Patient called stating she has a knot on the left side of her neck for about 3 days. It is a littlebigger than a marble and it is sore when touched. Please advise patient. documented in [facility] Telephone encounter Note * Telephone Encounter - Nidhi Taylor - 12/10/2023 9:07 AM EDT Patient called stating she has a knot on the left side of her neck for about 3 days. It is a littlebigger than a marble and it is sore when touched. Please advise patient. [facility] Work Phone: [phone]) 330-893404-24-2024 Note ORIGINAL HISTORY: Consolidation COMPARISON: Cervical spine x-ray 5 days previously FINDINGS: The lungs are clear. The cardiac silhouette is within normal size limits. The pulmonary vasculature is unremarkable in appearance. IMPRESSION: Clear lungs Interpreted by: Arley Blood MD Preliminary Report By: Arley Blood MD Electronically signed By Arley Blood MD Dictated Date: 11/24/2023 10:42:39 AM Prelim Date: 11/24/2023 10:43:21 AM Sign Date: 11/24/2023 10:43:21 AM Ordering Provider: [facility]04-18-2024 Evaluation + Plan note Future Scheduled Tests Laboratory* Albumin/Creatinine Ratio, Random Urine 11/18/23 [facility] 10-27-2023 Note. MICRO - Microbiology PROCEDURE: Urine Culture [*1] SOURCE: Urine, Clean Catch BODY SITE: COLLECTED DATE/TIME: 05/27/2023 11:51 EDT RECEIVED DATE/TIME: 05/27/2023 14:26 EDT START DATE/TIME: 05/27/2023 14:26 EDT FREE TEXT SOURCE: FINAL REPORTS Final Report [] Verified Date/Time/Personnel: 05/28/2023 14:10 EDT <10,000 cfu/ml. No Significant growth. Sensitivity not indicated. Performing Locations *1: This test was performed at: [facility], [address] [place] [address], [phone] , [facility]05-27-2023 Hospital Discharge instructions Patient Education 05/27/2023 13:53:10 Cellulitis Skin Infection Cellulitis Cellulitis is an infection of the deep layers of skin. A break in the skin, such as a cut or scratch, can let bacteria under the skin. If the bacteria get to deep layers of the skin, it can be serious. If not treated, cellulitis can get into the bloodstream and lymph nodes. The infection can then spread throughout the body. This causes serious illness. Cellulitis causes the affected skin to become red, swollen, warm, and sore. The reddened areas havea visible border. An open sore may leak fluid (pus). You may have a fever, chills, and pain. Cellulitis is treated with antibiotics taken for 7 to 10 days. An open sore may be cleaned and covered with cool wet gauze. Symptoms should get better 1 to 2 days after treatment is started. Make sure to take all the antibiotics for the full number of days until they are gone. Keep taking the medicine even if your symptoms go away. Home care Follow these tips: Limit the use of the part of your body with cellulitis. If the infection is on your leg, keep your leg raised while sitting. This will help to reduce swelling. Take all of the antibiotic medicine exactly as directed until it is gone. Do not miss any doses, especially during the first 7 days. Don t stop taking the medicine when your symptoms get better. Keep the affected area clean and dry. Wash your hands with soap and warm water before and after touching your skin. Anyone else who touches your skin should also wash his or her hands. Don't share towels. Follow-up care Follow up with your healthcare provider, or as advised. If your infection does not go away on the first antibiotic, your healthcare provider will prescribe a different one. When to seek medical advice Call your healthcare provider right away if any of these occur: Red areas that spread Swelling or pain that gets worse Fluid leaking from the skin (pus) Fever higher of 100.4 F (38.0 C) or higher after 2 days on antibiotics 1996-5366 [employer]. [address] [place] [address], [place] [address]. All rights reserved. This information is not intended as a substitute for professional medical care. Always follow yourhealthcare professional's instructions. Follow Up Care 05/27/2023 10:42:41 With:TERRIE GOLDSTEIN Address: [address] [place] [phone] When:2-4 days [facility] 10-26-2023 Emergency department Discharge summary Discharge Instructions Thank you for allowing [facility] to assist you with your healthcare needs. The following is importantdischarge information regarding your hospital visit. Diagnosis from Today's Visit Abdominal pain Abdominal pain Abdominal wall cellulitis What to Do Next Instructions from Your Care Team Monitor for worsening signs of infection worsening redness worsening pain nausea vomiting fevers. If these occur please return. No qualifying data available. Post Acute Orders No qualifying data available. You Need to Schedule the Following Appointments Follow Up with TERRIE GOLDSTEIN When Within 2-4 days Where: [address] [place] [phone] Allergies CeleBREX (Shortness of breath) Feraheme (Tendon pain) Vioxx (Hives) ramipril (Hives) Medications Please ask your primary doctor or pharmacist before taking any other medication not listed, including over the counter drugs, herbal medications, vitamins and or supplements as they may interact withyour home medications. What How Much When Why Instructions Last Dose New cephalexin (cephalexin 500 mg oral capsule) 1 cap by mouth Four (4) times a day Duration: 5 Days Printed Prescription Unchanged alendronate (alendronate 70 mg oral tablet) 1 tab(s) by mouth Every week Unchanged aspirin (aspirin 81 mg oral delayed release tablet) 1 tab(s) by mouth Every day Unchanged DME (Blood Glucose Test Strips) See instructions One Touch Ultra Blue Test Strips Test BS BID. Diabetes E11.9 Unchanged DME (Continuous Glucose Monitoring System) See instructions Type II diabetes with care home use of insulin Type 2 diabetes with stage 3 chronic kidney disease GFR 30-59 for short term 72 hour CGM Decom G6 reader. 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 Dexcom G6 sensors 90 day supply Unchanged DME (Pen needles) See instructions Pen needles for her Lantus and NovoLog. #360 pen needles for 90 day supply, 3 refills. Unchanged insulin aspart (Novolog) (NovoLOG FlexPen 100 units/ mL injectable solution) See instructions INJECT 27 UNITS 3 TIMES A DAY BEFORE MEALS please dispense enough for 3 months at a time Unchanged insulin glargine (Basaglar KwikPen 100 units/ mL subcutaneous solution) See instructions INJECT 35 UNIT DAILY, please dispense enough for 3 months (90 days) at a time. Unchanged magnesium oxide (magnesium oxide 400 mg oral capsule) 1 cap by mouth Once a day Duration: 90 Days muscle spasms. Unchanged Misc Medication (ONE TOUCH ULTRA BLUE TEST STRP) See instructions TESTING TWICE DAILY Unchanged omeprazole (omeprazole 40 mg oral delayed release capsule) 1 cap by mouth Once a day Unchanged oxybutynin (oxybutynin 10 mg/ 24 hr oral tablet, extended release) 1 tab(s) by mouth Once a day Duration: 90 Days take 1 tablet by mouth once daily Unchanged simvastatin (simvastatin 10 mg oral tablet) 1 tab(s) by mouth Daily at bedtime TAKE 1 TABLET BY MOUTH AT BEDTIME Unchanged tamoxifen (tamoxifen 20 mg oral tablet) 1 tab(s) by mouth Once a day Unchanged valsartan (valsartan 40 mg oral tablet) 1 tab(s) by mouth Two (2) times a day Please take this list to your next doctor s visit. Bring all medications you take, including over the counter medications, herbals and other supplements with you to your doctor s visit. Patients and families are reminded to discard old lists and to update any records with all medication providers or retail pharmacies. Education Materials Cellulitis Cellulitis is an infection of the deep layers of skin. A break in the skin, such as a cut or scratch, can let bacteria under the skin. If the bacteria get to deep layers of the skin, it can be serious. If not treated, cellulitis can get into the bloodstream and lymph nodes. The infection can then spread throughout the body. This causes serious illness. Cellulitis causes the affected skin to become red, swollen, warm, and sore. The reddened areas havea visible border. An open sore may leak fluid (pus). You may have a fever, chills, and pain. Cellulitis is treated with antibiotics taken for 7 to 10 days. An open sore may be cleaned and covered with cool wet gauze. Symptoms should get better 1 to 2 days after treatment is started. Make sure to take all the antibiotics for the full number of days until they are gone. Keep taking the medicine even if your symptoms go away. Home care Follow these tips: Limit the use of the part of your body with cellulitis. If the infection is on your leg, keep your leg raised while sitting. This will help to reduce swelling. Take all of the antibiotic medicine exactly as directed until it is gone. Do not miss any doses, especially during the first 7 days. Don t stop taking the medicine when your symptoms get better. Keep the affected area clean and dry. Wash your hands with soap and warm water before and after touching your skin. Anyone else who touches your skin should also wash his or her hands. Don't share towels. Follow-up care Follow up with your healthcare provider, or as advised. If your infection does not go away on the first antibiotic, your healthcare provider will prescribe a different one. When to seek medical advice Call your healthcare provider right away if any of these occur: Red areas that spread Swelling or pain that gets worse Fluid leaking from the skin (pus) Fever higher of 100.4 F (38.0 C) or higher after 2 days on antibiotics [id number] [employer]. [address] [place] [address]. All rights reserved. This information is not intended as a substitute for professional medical care. Always follow yourhealthcare professional's instructions. Additional Information VACCINATE! IT SAVES LIVES! Members of the community who have not yet received the COVID-19 vaccine and would like to receive it can visit one of [facility] vaccine clinics. There are many vaccine clinic locations within the [facility]. For locations and available times, please visit www.[email or web address].[place].gov/. It is important to note that some COVID mobile vaccine clinics are held outdoors and may be canceled in rainy or stormy conditions. To learn more about pediatric vaccinations (ages 5-11), we invite you to visit the [facility] webpage. https://www.[email or web address].org/pages/[email or web address]-Tfkgmehetgi-Keuuyigrfp-[email or web address] stions.htmlTo learn more about the COVID-19 vaccine, we invite you to visit the CDC website for a list of frequently asked questions. https://www.cdc.gov/coronavirus/2019-ncov/vaccines/faq.html [employer] Patient Portal Access Instructions: Stay connected with your healthcare team and access your personal medical information anytime with the [employer] Patient Portal. If you would like a full copy of your medical records please contact the [facility] Medical Records Department Wednesday through Wednesday between 8a.m. and 4:30p.m. Please follow the directions below to access the portal: 1.Access the email account you provided upon registration to the [facility].2.Look for an invitation email from [facility].3.Open the email and access the invitation link: Accept Invitation to [employer]4.Fill in the required goldsmith to create your account. Sign into [email or web address] with your username and password that you created in the above steps to stay up to date. You can then view a summary of results, a summary of your visits, and the ability to download your summaries to your computer or send the information securely to a physician. Remember that your healthcare information is confidential, so carefully consider who you will allow to register on the [employer] Patient Portal for access to your information. You can also access the [employer] Patient Portal on the [employer]. Simply click on Health Records under [employer] and then click on the [facility] logo. HOW TO SAFELY DISPOSE OF PRESCRIPTION MEDICATIONS Please use one of the following methods to safely dispose of your unused medications. 1.Use a drug disposal kit: the drug disposal pouch allows you to safely discard your old and unuseddrugs. Ask your nurse to give you one when you are discharged.2.Visit a local take-back location: Many local pharmacies and police departments have programs that collect old and unwanted prescriptiondrugs. Call your local pharmacy or go to http://Quick Key.[employer]/9I9Mg6x to find one close to you.3.Make use of household items: Use cat litter or old coffee grounds to dispose medications if other options arenot available. Mix your drugs with these household products, seal them in an airtight container andthrow it into the garbage. Call [facility]: [phone] to be sure your drugs can be disposed of in this way. Some medicines may require a different approach.4.Never flush your medications down the toilet. IF YOU HAVE BEEN PRESCRIBED AN OPIOIDS FOR PAIN If you have been prescribed an opioid (such as hydrocodone, oxycodone or morphine), it is critical to understand the possible side effects and risks of opioid pain medications. Even when taken as directed, opioids can have several side effects including: Tolerance, meaning you might need to take more of a medication for the same pain relief. Nausea, vomiting and/or constipation. Sleepiness, dizziness, dry mouth, confusion, depression or itching. Physical dependence, meaning you have withdrawal symptoms when a medication is stopped ? this can develop within a few days. KNOW YOUR RESPONSIBILITIES It is important to know exactly how much and how often to take the opioid pain medications you are prescribed. Never take opioids in higher amounts or more often than prescribed. Do not combine opioids with alcohol or other drugs that cause drowsiness, such as benzodiazepines, also known as benzos,including diazepam and alprazolam, muscle relaxants or sleep aids. Never sell or share prescriptionopioids. This is illegal. Store opioids in a secure place and out of reach of others (including children, family, friends and visitors). The last page(s) of this document has been signed and retained as a CHART COPY Signatures Patient Education Materials Cellulitis Skin Infection Medication Leaflets My discharge plan and instructions have been reviewed and explained to me and IFRANCHESCA ANN M understand my current condition and have read and understand these discharge instructions. I have received a written copy of the plan/instructions. If I have questions, I am aware that I should contactmy doctor. 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 Signature: Date/Time: Relationship to Patient: Witness Name/Signature: Date/Time: [facility]10-26-2023 Evaluation + Plan note Diagnostic Tests Pending * Urine Culture 05/27/23 Future Scheduled Tests Laboratory* Thyroid Stimulating Hormone 11/18/23 * Free T4 11/18/23 * A1C Hemoglobin 11/18/23 * Complete Blood Count 11/18/23 * Lipid Profile 11/18/23 * Albumin/Creatinine Ratio, Random Urine 11/18/23 * Complete Metabolic Panel 11/18/23 [facility] 10-26-2023 Note ORIGINAL EXAMINATION: CT OF THE ABDOMEN AND PELVIS WITH CONTRAST 05/27/2023 1:00 pm TECHNIQUE: CT of the abdomen and pelvis was performed with the administration of intravenous contrast. Multiplanar reformatted images are provided for review. Automated exposure control, iterative reconstruction, and/or weight based adjustment of the mA/kV was utilized to reduce the radiation dose to as low as reasonably achievable. 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 Lung bases are unremarkable. Very small sliding hiatal hernia noted. Mild fatty infiltration of the liver is evident. No focal liver lesions seen. The spleen and right adrenal gland are normal. There is mild prominence of the left adrenal gland, probably hyperplasia. This is similar to the previous study. Pancreas is unremarkable. A small right renal cyst is evident. Leidy hepatis lymph nodes are noted, considered within normal limits for this location. No adenopathy, free air, or free fluid is evident. The solid pelvic organs are unremarkable. There is very minor thickening of the right lateral urinary bladder wall, without a focal mass identified. Rectal anastomosis is evident from previous surgery. There is a small fat containing periumbilical hernia noted, containing a portion of the transverse colon. No evidence for obstruction. No other GI tract abnormality seen. There is some subcutaneous induration at the lower anterior abdominal wall. This could represent bruising, previous injections, or even cellulitis. No additional contributory abnormality seen. IMPRESSION: 1. No acute abnormality identified. 2. Small periumbilical hernia containing minimal transverse colon, without obstruction. 3. Induration of the lower anterior abdominal wall. Cellulitis is not excluded and clinical assessment is needed. Interpreted by: Abiel Gonzalez MD Preliminary Report By: Abiel Gonzalez MD Electronically signed By Abiel Gonzalez MD Dictated Date: 05/27/2023 1:03:00 PM Prelim Date: 05/27/2023 1:05:47 PM Sign Date: 05/27/2023 1:05:47 PM Ordering Provider: [facility]10-20-2023 Note . MICRO - Microbiology PROCEDURE: Urine Culture [*1] SOURCE: Urine, Clean Catch BODY SITE: COLLECTED DATE/TIME: 05/19/2023 16:32 EDT RECEIVED DATE/TIME: 05/19/2023 19:12 EDT START DATE/TIME: 05/19/2023 19:13 EDT FREE TEXT SOURCE: FINAL REPORTS Final Report [] Verified Date/Time/Personnel: 05/21/2023 07:30 EDT >100,000 cfu/ml Klebsiella pneumoniae PRELIMINARY REPORTS Preliminary Report [] Verified Date/Time/Personnel: 05/20/2023 10:26 EDT >100,000 cfu/ml Klebsiella pneumoniae MONY to follow SUSCEPTIBILITY RESULTS Klebsiella pneumoniae Antibiotic MONY Dilut MONY Inter Ampicillin >16 Resistant Ampicillin/ >16/8 Resistant Sulbactam Aztreonam <=4 Susceptible Cefazolin 4 Susceptible Ciprofloxacin <=0.25 Susceptible Ertapenem <=0.5 Susceptible Gentamicin <=2 Susceptible Imipenem <=1 Susceptible Levofloxacin <=0.5 Susceptible Meropenem <=1 Susceptible Minocycline >8 Resistant Nitrofurantoin <=32 Susceptible Piperacillin/ <=8 Susceptible Tazobactam Trimethoprim/ <=0.5/9.5 Susceptible Sulfa Performing Locations *1: This test was performed at: [facility], [address] [place] [address], [id number] , [facility]07-[facility]-2022 Miscellaneous Notes* Telephone Encounter - Sharmila Womack LPN - 07/31/2022 12:33 PM EST Patient notified and will contact PCP. Sharmila Womack LPN * Telephone Encounter - Jade Otoole MD - 07/31/2022 12:21 PM EST See PCP for rectal bleeding, possible hemorrhoid? Use sitz bath and stool softeners as needed Jade Otoole MD * Telephone Encounter - Sharmila Womack LPN - 07/31/2022 11:45 AM EST Patient states she has been having rectal bleeding 5-6 times per day for the last 3 days. Stool is loose and brown, has approximately 2-3 tablespoons of red blood that comes out with the loose stool.Denies straining, abdominal pain, clots, SOB, chest pain or weakness. Sharmila Womack LPN * Telephone Encounter - Fern Cummings - 07/31/2022 11:24 AM EST Patient reports that she is experiencing rectal bleeding once again but without pain. She states that she had to cancel her colonoscopy. She is requesting someone contact her to advise on plan of care. [facility] History of Present illness Narrative* Jade Otoole MD - 07/07/2022 11:56 AM EST PATIENT NAME: Orion Sorensen. CLINIC NO: [id number]. ATTENDING PHYSICIAN: Jade Otoole MD. 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 Patient had a stereotactic needle biopsy on June 16 2017 of her right breast. Biopsy was positive for invasive moderately differentiated ductal carcinoma, ERstrongly +95%, IL +60% HER-2/cecil negative +1 patient has not been feeling well for the last 6 months with alternating constipation and diarrhea. She had a screening colonoscopy [address] Caal. She had 1 abnormal adenomatous polyp removed. Also patient denied weight loss she has chronicback pain from her weight and osteoporosis. She is on calcium and Fosamax for treatment osteoporosis. Her diagnostic mammogram show a 2.5 cm irregular mass in the right breast suspicious for malignancyin the upper outer quadrant at 9 o'clock. Patient has no previous breast biopsy, trauma or infection. She has family history of breast cancer both older sister bilateral breast cancer and mother has breast cancer.they were tested for BRCA1 and BRCA2 were negative. Patient menstrual history began age 11, she has to first child born age 22, no history of control or estrogen replacement therapy she went through menopause in her late fifties. Patient is less mobile but drink alcoholsocially. She was admitted to [facility] last week for acute diverticulitis. She still has some left lower quadrant pain but no fever or diarrhea. she completed antibiotic and follow with Drs. Caal showed no evidence of acute abdomen or diverticulitis. Her last colonoscopy 2 years ago showed diverticulosis with a hyperplastic polyp of the rectum S/p right mastectomy with sentinel lymph node biopsy and prophylactic left breast mastectomy done on 09/13/17. She had two sentinel lymph nodes that were negative for metastatic disease. Final pathology revealed that an intramammary lymph node was positive for metastasis not in her axillary lymph nodes. adjuvant chemotherapy treatment: Cyclophosphamide/Docetaxel x 4 ( 10/13/17 - 01/04/18 ) Current treatment: Tamoxifen since December 2017. She had a rectosigmoid mass on colonoscopy in 2019. She was referred to Dr. Landry for surgeryon September 20, 2019. Her preoperative CT scan showed right lung nodules otherwise nonspecific but no evidence of metastatic disease. She underwent a low anterior resection without complications. FINAL DIAGNOSIS: LOW ANTERIOR RESECTION - INVASIVE MODERATELY TO POORLY DIFFERENTIATED RECTOSIGMOID ADENOCARCINOMA WITH EXTENSION INTO THE SUBMUCOSA. PROXIMAL, DISTAL AND MESENTERIC RESECTION MARGINS ARE FREE OF TUMOR INVOLVEMENT. MESENTERIC LYMPH NODES (35) - NEGATIVE FOR MALIGNANCY. COMMENT: [employer] slides from this case were also reviewed by Dr. Easton Sanchez. Colon and Rectum Cancer Case Summary Procedure: Low anterior resection. Tumor site: Rectosigmoid. Tumor size: 2.8 x 2 x 0.5 cm Macroscopic tumor perforation: Not identified. Histologic type: Adenocarcinoma. Histologic grade: Moderately to poorly differentiated. Microscopic tumor extension: Tumor invades submucosa. Margins: Proximal: Negative. Distal: Negative. Circumferential/mesenteric: Negative. Distance to closest margin: 2.4 cm. Specify margin: Distal. Treatment effect: Not identified. Lymphovascular invasion: Not identified. Perineural invasion: Not identified. Tumor deposits: Not identified. Lymph nodes: Number examined: 35 Number involved: None. Pathologic stage: pT1 pN0 Interim history: She is doing well on tamoxifen. She has no swelling or pain in her mastectomy siteand the lymphedema. She has no rectal pain, or bleeding. Her stool is formed, and no weight loss. She has no vaginal bleeding or discharges. Colonoscopy in September 2020 showed no evidence of recurrent rectal cancer. She denies epigastric pain, rectal bleeding or melena. All medications & allergies updated and reviewed by me. REVIEW OF SYSTEMS: CONSTITUTIONAL: No fevers, chills, nightsweats, unintended weight loss HEENT: Denies frequent or severe heaches, nasal congestion/sinus symptoms, problematic allergy problems. EYES: No diplopia or blurry vision. CARDIOVASCULAR: No chest pain, dyspnea, palpitations, orthopnea, PND, ankle edema. PULM: No dyspnea, unexplained cough. GI: No dysphagia/odynophagia, problematic reflux, constipation, diarrhea, changes in stool habits, hematochezia, melena. : No new urinary complaints, including dysuria, gross hematuria or pyuria. NEURO: No new balance problems, peripheral weakness/paresthesias or numbness of concern. MUSC-SKEL: No new joint pain, swelling, or erythema. PSY: No concerns regarding depression, anxiety or panic. INTEGUMENTARY: No new skin changes (rash, new or changing mole, new growth) PHYSICAL EXAMINATION: Well-nourished well-developed 71-year-old female in no acute distress BP 131/63 Pulse 71 Temp 97.8 Ht 5' 1.811 (1.57m) Wt 180 lb (81.6kg) SpO2 99% BMI 33.12kg/(m^2). HEENT: Head is normocephalic, atraumatic. Sclerae white, conjunctivae pink. PEERL. EOMs are intact.Oropharynx is benign. LYMPHATICS: There is no palpable adenopathy in the neck, supraclavicular region, axillae, or groin BREASTS:Bilateral mastectomy scar is healed, no local or regional recurrences LUNGS: Lungs are clear to percussion and auscultation. HEART: Heart is normal without murmurs, gallops, or rubs. ABDOMEN: Soft and nontender without organomegaly. No masses and well-healed scar with no hernia. EXTREMITIES: Are without edema. NEUROLOGIC: Exam is physiologic LABORATORY DATA: Component Latest Ref Rng & Units 07/07/2022 WBC 3.70 - 11.00 k/uL 6.41 RBC 3.90 - 5.20 m/uL 3.33 (L) Hemoglobin 11.5 - 15.5 g/dL 10.5 (L) Hematocrit 36.0 - 46.0 % 31.2 (L) MCV 80.0 - 100.0 fL 93.7 MCH 26.0 - 34.0 pg 31.5 MCHC 30.5 - 36.0 g/dL 33.7 RDW-CV 11.5 - 15.0 % 13.0 Platelet Count 150 - 400 k/uL 228 MPV 9.0 - 12.7 fL 8.2 (L) Neut% % 59.0 Abs Neut (ANC) 1.45 - 7.50 k/uL 3.79 Lymph% % 31.4 Abs Lymph 1.00 - 4.00 k/uL 2.01 Manati% % 6.6 Abs Manati <0.87 k/uL 0.42 Eosin% % 1.9 Abs Eosin <0.46 k/uL 0.12 Baso% % 0.8 Abs Baso <0.11 k/uL 0.05 Immature Gran % % 0.3 IMMATURE GRANS (ABS) <0.10 k/uL <0.03 NRBC /100 WBC 0.0 Absolute nRBC <0.01 k/uL <0.01 DTYPE Auto Retic % 0.4 - 2.0 % 1.5 Abs Retic 0.018 - 0.100 M/uL 0.049 Component Latest Ref Rng & Units 07/07/2022 Protein, Total 6.3 - 8.0 g/dL 6.7 Albumin 3.9 - 4.9 g/dL 3.7 (L) Calcium 8.5 - 10.2 mg/dL 8.9 Bilirubin, Total 0.2 - 1.3 mg/dL 0.3 Alkaline Phosphatase 34 - 123 U/L 37 AST 13 - 35 U/L 62 (H) ALT 7 - 38 U/L 44 (H) Glucose 74 - 99 mg/dL 146 (H) BUN 7 - 21 mg/dL 18 Creatinine 0.58 - 0.96 mg/dL 1.06 (H) Sodium 136 - 144 mmol/L 137 Potassium 3.7 - 5.1 mmol/L 4.1 Chloride 97 - 105 mmol/L 103 CO2 22 - 30 mmol/L 25 Anion Gap 9 - 18 mmol/L 9 eGFR >=60 mL/min/1.73m 56 (L) ASSESSMENT: 71-year-old postmenopausal lady with history of bilateral breast cancer and rectal cancer. Hereditary Cancer panel through [facility] was negative for a deleterious mutation. 1.Stage I, pT2, pN0 ER positive HER2 negative breast cancer, status post bilateral mastectomy; adjuvant chemotherapy, and on adjuvant tamoxifen. -In complete remission 2. Stage I, pT1, pN0, M0, rectal cancer status-post low anterior resection on 09/20/2019 -In complete remission 3. Anemia of chronic disease, stage 3a chronic renal failure -Asymptomatic PLAN: -Continue tamoxifen 20mg once daily until December 2022 -Repeat colonoscopy in 3 - 5 years -Check iron study, vitamin B12 and folic acid today for anemia. I spent 30 minutes in the visit, with more than 50% of the total [id number] time of the visit in counseling / coordination of care. Portions of this documentation were copied and pasted from previous office visit notes in order to provide a cohesive continuity of the history. The note has been reviewed and edited and updated as necessary. Jade Otoole MD Cc: Dr. Ivonne Avila documented [facility] Evaluation + Plan note Future Scheduled Tests Laboratory* Urinalysis 07/06/21 * Urine Culture 07/06/21 [facility] Evaluation + Plan note Future Appointments Appointment Date:10/29/2021 10:05:00 AM Scheduled Provider:IVONNE AVILA MD Location:[facility] Appointment Type:PC OV Diagnostic Tests Pending * Urine Culture 07/06/21 Future Scheduled Tests Laboratory* Urinalysis 07/06/21 * Urine Culture 07/06/21 Radiology* BD Bone Density DEXA Axial Skeleton 12/25/20 [facility] Evaluation + Plan note Future Appointments Appointment Date:10/29/2021 10:05:00 AM Scheduled Provider:IVONNE AVILA MD Location:[facility] Appointment Type:PC OV Future Scheduled Tests Laboratory* Urinalysis 07/06/21 * Urine Culture 07/06/21 Radiology* BD Bone Density DEXA Axial Skeleton 12/25/20 [facility] Evaluation + Plan note Future Appointments Appointment Date:04/10/2022 09:00:00 AM Scheduled Provider:TERRIE GOLDSTEIN Location:[facility] Appointment Type:PC OV Future Scheduled Tests Laboratory* Urinalysis 07/06/21 * Urine Culture 07/06/21 [facility] Evaluation + Plan note Future Appointments Appointment Date:09/16/2022 10:00:00 AM Scheduled Provider:TERRIE GOLDSTEIN Location:[facility] Appointment Type:PC OV Follow Up Future Scheduled Tests Laboratory* Lipid Profile 09/16/22 [facility] Evaluation + Plan note Future Appointments Appointment Date:05/19/2023 10:00:00 AM Scheduled Provider:TERRIE GOLDSTEIN Location:[facility] Appointment Type:PC OV [facility] Evaluation + Plan note Future Scheduled Tests Laboratory* Thyroid Stimulating Hormone 11/18/23 * Free T4 11/18/23 * A1C Hemoglobin 11/18/23 * Complete Blood Count 11/18/23 * Lipid Profile 11/18/23 * Albumin/Creatinine Ratio, Random Urine 11/18/23 * Complete Metabolic Panel 11/18/23 [facility] Evaluation + Plan note Future Appointments Appointment Date:11/19/2023 10:30:00 AM Scheduled Provider:TERRIE GOLDSTEIN Location:[facility] Appointment Type:PC OV Future Scheduled Tests Laboratory* Albumin/Creatinine Ratio, Random Urine 11/18/23 [facility] Evaluation + Plan note Future Appointments Appointment Date:12/03/2023 10:30:00 AM Scheduled Provider: Location:[facility] Appointment Type:PT Outpatient Evaluation Future Scheduled Tests Laboratory* Albumin/Creatinine Ratio, Random Urine 11/18/23 Radiology* XR Chest 2 Views (PA & Lateral) 11/22/23 [facility] evaluation + Plan note Future Appointments Appointment Date:12/03/2023 10:30:00 AM Scheduled Provider: Location:[facility] Appointment Type:PT Outpatient Evaluation Future Scheduled Tests Laboratory* Albumin/Creatinine Ratio, Random Urine 11/18/23 [facility] Evaluation + Plan note Future Appointments Appointment Date:02/11/2024 11:00:00 AM Scheduled Provider: Location:[facility] Appointment Type:Echo - Echocardiogram, Dobutamine Stress Future Scheduled Tests Laboratory* Albumin/Creatinine Ratio, Random Urine 11/18/23 [facility] Evaluation + Plan note Future Appointments Appointment Date:06/02/2024 09:30:00 AM Scheduled Provider:TERRIE GOLDSTEIN Location:[facility] Appointment Type:PC OV Future Scheduled Tests Laboratory* Albumin/Creatinine Ratio, Random Urine 11/18/23 [facility] Evaluation + Plan note Future Appointments Appointment Date:08/10/2024 01:30:00 PM Scheduled Provider:MATT SMILEY Location:[facility] Appointment Type:PC OV TCM 30 Appointment Date:08/18/2024 10:30:00 AM Scheduled Provider:TERRIE GOLDSTEIN Location:[facility] Appointment Type:PC OV Lab Check Future Scheduled Tests Laboratory* Albumin/Creatinine Ratio, Random Urine 11/18/23 [facility] Evaluation + Plan note Future Appointments Appointment Date:02/07/2025 10:30:00 AM Scheduled Provider:TERRIE GOLDSTEIN Location:[facility] Appointment Type:PC OV Future Scheduled Tests Laboratory* A1C Hemoglobin 11/08/24 * Complete Blood Count 11/08/24 * Lipid Profile 11/08/24 * Complete Metabolic Panel 11/08/24 [facility] Evaluation note* Diagnosis Anemia, unspecified type- Primary Adenocarcinoma of rectosigmoid junction (HCC) Malignant neoplasm of rectosigmoid junction Malignant neoplasm of upper-outer quadrant of right breast in female, estrogen receptor positive (HCC) [facility] Neck pain- Primary Cervicalgia Spinal stenosis of cervical region Spinal stenosis in cervical region Tremors of nervous system Abnormal involuntary movements Cervical stenosis of spine Spinal stenosis in cervical region Other specified disorders of bone density and structure, other site [facility] Diagnosis Neck pain Cervicalgia [facility] Diagnosis 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)- Primary 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) [facility] Diagnosis Spinal stenosis of cervical region- Primary Spinal stenosis in cervical region Other specified abnormal findings of blood chemistry 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) [facility] Diagnosis Spinal stenosis of cervical region- Primary Spinal stenosis in cervical region 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 Medical optimization pending. No cardiac stents per patient. -EKG done today in pretesting. -Fax request to primary care for copy of recent echo. -Aspirin 81 mg. Instructed to get instructions from surgeon. -On a statin. 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 Lares * Assessment & Plan Note - Irish Downing APRN.CNP - 07/07/2024 4:02 PM EST Associated Problem(s): Pre-op examination Patient has the following medical conditions which may affect giovani-operative course addressed in assessment and plan today. -Patient admitted to some issues with her memory. Patient lives alone. Today patient had 2 Dexcom patches on. She had forgot to take off the previous patch. [employer] message sent to [facility]. PAT recommends geriatric consult after surgery while admitted. * Assessment & Plan Note - Irish Downing APRN.CNP - 07/07/2024 4:02 PM EST Associated Problem(s): Anemia of chronic disease Patient denies issues with anemia. Does not take oral supplements. Has not had any recent transfusions. -CBC collected today Hemoglobin (g/dL) Date Value 07/04/2024 11.2 07/06/2023 10.9 07/07/2022 10.5 07/08/2021 11.2 07/09/2020 11.7 HGB (g/dL) Date Value 09/22/2019 9.7 09/21/2019 9.5 * Assessment & Plan Note - Irish Downing APRN.CNP - 07/07/2024 4:01 PM EST Associated Problem(s): Stage 3 chronic kidney disease (HCC) Per patient kidney disease is managed by primary care. Medical optimization pending. -CMP collected today. Creatinine Date Value Ref Range Status 07/06/2023 1.18 (H) 0.58 - 0.96 mg/dL Final 07/07/2022 1.06 (H) 0.58 - 0.96 mg/dL Final 07/08/2021 1.07 (H) 0.58 - 0.96 mg/dL Final 07/09/2020 1.01 (H) 0.58 - 0.96 mg/dL Final * Assessment & Plan Note - Irish Downing APRN.CNP - 07/07/2024 3:58 PM EST Associated Problem(s): Malignant neoplasm of upper-outer quadrant of right breast in female, estrogen receptor positive (HCC) No BP or IV sticks in the right arm. * Assessment & Plan Note - Irish Downing APRN.CNP - 07/07/2024 3:58 PM EST Associated Problem(s): 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) Managed by primary care per patient. -Lantus 35 to 40 units at bedtime. Instructed to get day of surgery insulin orders from prescribingprovider. -NovoLog 28 to 30 units 3 times a day. Instructed to get day of surgery insulin orders from prescribing provider. -Hemoglobin A1c ordered by surgeon today. Check glucose day of surgery. * Assessment & Plan Note - Irish Downing APRN.CNP - 07/07/2024 3:56 PM EST Associated Problem(s): Gastroesophageal reflux disease Omeprazole 40 mg. Continue as prescribed * Assessment & Plan Note - Irish Downing APRN.CNP - 07/07/2024 3:56 PM EST Associated Problem(s): Hypercholesterolemia Simvastatin 10 mg. Continue as prescribed Fish oil. Stop 7 days * Assessment & Plan Note - Irish Downing APRN.CNP - 07/07/2024 3:56 PM EST Associated Problem(s): Cardiac murmur Patient states she had an echocardiogram this year at [facility]. I faxed a request to get a copy of the echo I do not see it in epic. No murmur auscultated today during her physical exam. Patient states she was just told recently she had a heart murmur. She is asymptomatic denies shortness of breath or chest pain. documented [facility] this 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) Coronary artery disease involving [place] coronary artery of [place] heart, unspecified whether angina present Spinal stenosis of cervical region Spinal stenosis in cervical region 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) [facility]* Diagnosis Cervical stenosis of spinal canal- Primary Spinal stenosis in cervical region Acute hyponatremia Hyposmolality and/or hyponatremia Cervical stenosis of spinal canal Spinal stenosis in cervical region Post-op pain Other acute postoperative pain 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) Type II or unspecified type diabetes mellitus without mention of complication, not stated as uncontrolled Stage 3 chronic kidney disease (HCC) Hypertension Unspecified essential hypertension Obesity, Class II, BMI 35-39.9 Obesity, unspecified Acute hyponatremia Hyposmolality and/or hyponatremia Cardiac murmur- Primary Undiagnosed cardiac murmurs Hypercholesterolemia Pure hypercholesterolemia Gastroesophageal reflux disease, unspecified whether esophagitis present Malignant neoplasm of upper-outer quadrant of right breast in female, estrogen receptor positive (HCC) Anemia of chronic disease Anemia of other chronic disease Pre-op examination Preoperative examination, unspecified 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) Coronary artery disease involving [place] coronary artery of [place] heart, unspecified whether angina present S/P cervical spinal fusion- Primary Arthrodesis status documented in this encounter [facility]* Diagnosis Cervical stenosis of spinal canal- Primary Spinal stenosis in cervical region Acute hyponatremia Hyposmolality and/or hyponatremia Cervical stenosis of spinal canal Spinal stenosis in cervical region Post-op pain Other acute postoperative pain Type II diabetes with terminal system operator use of insulin (HCC) Type II or unspecified type diabetes mellitus without mention of complication, not stated as uncontrolled Stage 3 chronic kidney disease (HCC) Hypertension Unspecified essential hypertension Obesity, Class II, BMI 35-39.9 Obesity, unspecified Acute hyponatremia Hyposmolality and/or hyponatremia Cardiac murmur- Primary Undiagnosed cardiac murmurs Hypercholesterolemia Pure hypercholesterolemia Gastroesophageal reflux disease, unspecified whether esophagitis present Malignant neoplasm of upper-outer quadrant of right breast in female, estrogen receptor positive (HCC) Anemia of chronic disease Anemia of other chronic disease Pre-op examination Preoperative examination, unspecified 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) Type II or unspecified type diabetes mellitus without mention of complication, not stated as uncontrolled Stage 3 chronic kidney disease (HCC) Hypertension Unspecified essential hypertension Obesity, Class II, BMI 35-39.9 Obesity, unspecified Acute hyponatremia Hyposmolality and/or hyponatremia Cardiac murmur- Primary Undiagnosed cardiac murmurs Hypercholesterolemia Pure hypercholesterolemia Gastroesophageal reflux disease, unspecified whether esophagitis present Malignant neoplasm of upper-outer quadrant of right breast in female, estrogen receptor positive (HCC) Anemia of chronic disease Anemia of other chronic disease Pre-op examination Preoperative examination, unspecified 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) Type II or unspecified type diabetes mellitus without mention of complication, not stated as uncontrolled Stage 3 chronic kidney disease (HCC) Hypertension Unspecified essential hypertension Obesity, Class II, BMI 35-39.9 Obesity, unspecified Acute hyponatremia Hyposmolality and/or hyponatremia Cardiac murmur- Primary Undiagnosed cardiac murmurs Hypercholesterolemia Pure hypercholesterolemia Gastroesophageal reflux disease, unspecified whether esophagitis present Malignant neoplasm of upper-outer quadrant of right breast in female, estrogen receptor positive (HCC) Anemia of chronic disease Anemia of other chronic disease Pre-op examination Preoperative examination, unspecified 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) Coronary artery disease involving [place] coronary artery of [place] heart, unspecified whether angina present S/P cervical spinal fusion Arthrodesis status documented [facility] Diagnosis Cervical stenosis of spinal canal- Primary Spinal stenosis in cervical region Acute hyponatremia Hyposmolality and/or hyponatremia Cervical stenosis of spinal canal Spinal stenosis in cervical region Post-op pain Other acute postoperative pain Type II diabetes with terminal system operator use of insulin (HCC) Type II or unspecified type diabetes mellitus without mention of complication, not stated as uncontrolled Stage 3 chronic kidney disease (HCC) Hypertension Unspecified essential hypertension Obesity, Class II, BMI 35-39.9 Obesity, unspecified Acute hyponatremia Hyposmolality and/or hyponatremia Cardiac murmur- Primary Undiagnosed cardiac murmurs Hypercholesterolemia Pure hypercholesterolemia Gastroesophageal reflux disease, unspecified whether esophagitis present Malignant neoplasm of upper-outer quadrant of right breast in female, estrogen receptor positive (HCC) Anemia of chronic disease Anemia of other chronic disease Pre-op examination Preoperative examination, unspecified 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) Coronary artery disease involving [place] coronary artery of [place] heart, unspecified whether angina present S/P cervical spinal fusion- Primary Arthrodesis status documented in this encounter [facility] Diagnosis Cervical stenosis of spinal canal- Primary Spinal stenosis in cervical region Acute hyponatremia Hyposmolality and/or hyponatremia Cervical stenosis of spinal canal Spinal stenosis in cervical region Post-op pain Other acute postoperative pain Type II diabetes with terminal system operator use of insulin (HCC) Type II or unspecified type diabetes mellitus without mention of complication, not stated as uncontrolled Stage 3 chronic kidney disease (HCC) Hypertension Unspecified essential hypertension Obesity, Class II, BMI 35-39.9 Obesity, unspecified Acute hyponatremia Hyposmolality and/or hyponatremia Cardiac murmur- Primary Undiagnosed cardiac murmurs Hypercholesterolemia Pure hypercholesterolemia Gastroesophageal reflux disease, unspecified whether esophagitis present Malignant neoplasm of upper-outer quadrant of right breast in female, estrogen receptor positive (HCC) Anemia of chronic disease Anemia of other chronic disease Pre-op examination Preoperative examination, unspecified 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) Coronary artery disease involving [place] coronary artery of [place] heart, unspecified whether angina present S/P cervical spinal fusion Arthrodesis status documented in this encounter [facility]* Diagnosis Onset Date Resolution Status Admit Date Acute lower GI bleeding acute M 2024 8:46pm Anemia acute October 30 8:46pm Weakness acute October 30 8:46pm [facility] Work Phone: Evaluation note* Diagnosis Cervical stenosis of spinal canal- Primary Spinal stenosis in cervical region Acute hyponatremia Hyposmolality and/or hyponatremia Cervical stenosis of spinal canal Spinal stenosis in cervical region Post-op pain Other acute postoperative pain Type II diabetes with terminal system operator use of insulin (HCC) Type II or unspecified type diabetes mellitus without mention of complication, not stated as uncontrolled Stage 3 chronic kidney disease (HCC) Hypertension Unspecified essential hypertension Obesity, Class II, BMI 35-39.9 Obesity, unspecified Acute hyponatremia Hyposmolality and/or hyponatremia Cardiac murmur- Primary Undiagnosed cardiac murmurs Hypercholesterolemia Pure hypercholesterolemia Gastroesophageal reflux disease, unspecified whether esophagitis present Malignant neoplasm of upper-outer quadrant of right breast in female, estrogen receptor positive (HCC) Anemia of chronic disease Anemia of other chronic disease Pre-op examination Preoperative examination, unspecified 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 Diagnosis Cervical stenosis of spinal canal- Primary Spinal stenosis in cervical region Acute hyponatremia Hyposmolality and/or hyponatremia Cervical stenosis of spinal canal Spinal stenosis in cervical region Post-op pain Other acute postoperative pain Type II diabetes with terminal system operator use of insulin (HCC) Type II or unspecified type diabetes mellitus without mention of complication, not stated as uncontrolled Stage 3 chronic kidney disease (HCC) Hypertension Unspecified essential hypertension Obesity, Class II, BMI 35-39.9 Obesity, unspecified Acute hyponatremia Hyposmolality and/or hyponatremia Cardiac murmur- Primary Undiagnosed cardiac murmurs Hypercholesterolemia Pure hypercholesterolemia Gastroesophageal reflux disease, unspecified whether esophagitis present Malignant neoplasm of upper-outer quadrant of right breast in female, estrogen receptor positive (HCC) Anemia of chronic disease Anemia of other chronic disease Pre-op examination Preoperative examination, unspecified 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) Coronary artery disease involving [place] coronary artery of [place] heart, unspecified whether angina present S/P cervical spinal fusion Arthrodesis status documented in this encounter [facility]* Diagnosis Cervical stenosis of spinal canal- Primary Spinal stenosis in cervical region Acute hyponatremia Hyposmolality and/or hyponatremia Cervical stenosis of spinal canal Spinal stenosis in cervical region Post-op pain Other acute postoperative pain 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) Type II or unspecified type diabetes mellitus without mention of complication, not stated as uncontrolled Stage 3 chronic kidney disease (HCC) Hypertension Unspecified essential hypertension Obesity, Class II, BMI 35-39.9 Obesity, unspecified Acute hyponatremia Hyposmolality and/or hyponatremia Cardiac murmur- Primary Undiagnosed cardiac murmurs Hypercholesterolemia Pure hypercholesterolemia Gastroesophageal reflux disease, unspecified whether esophagitis present Malignant neoplasm of upper-outer quadrant of right breast in female, estrogen receptor positive (HCC) Anemia of chronic disease Anemia of other chronic disease Pre-op examination Preoperative examination, unspecified 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 Diagnosis Cervical stenosis of spinal canal- Primary Spinal stenosis in cervical region Acute hyponatremia Hyposmolality and/or hyponatremia Cervical stenosis of spinal canal Spinal stenosis in cervical region Post-op pain Other acute postoperative pain Type II diabetes with terminal system operator use of insulin (HCC) Type II or unspecified type diabetes mellitus without mention of complication, not stated as uncontrolled Stage 3 chronic kidney disease (HCC) Hypertension Unspecified essential hypertension Obesity, Class II, BMI 35-39.9 Obesity, unspecified Acute hyponatremia Hyposmolality and/or hyponatremia Cardiac murmur- Primary Undiagnosed cardiac murmurs Hypercholesterolemia Pure hypercholesterolemia Gastroesophageal reflux disease, unspecified whether esophagitis present Malignant neoplasm of upper-outer quadrant of right breast in female, estrogen receptor positive (HCC) Anemia of chronic disease Anemia of other chronic disease Pre-op examination Preoperative examination, unspecified 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) Type II or unspecified type diabetes mellitus without mention of complication, not stated as uncontrolled Stage 3 chronic kidney disease (HCC) Hypertension Unspecified essential hypertension Obesity, Class II, BMI 35-39.9 Obesity, unspecified Acute hyponatremia Hyposmolality and/or hyponatremia Cardiac murmur- Primary Undiagnosed cardiac murmurs Hypercholesterolemia Pure hypercholesterolemia Gastroesophageal reflux disease, unspecified whether esophagitis present Malignant neoplasm of upper-outer quadrant of right breast in female, estrogen receptor positive (HCC) Anemia of chronic disease Anemia of other chronic disease Pre-op examination Preoperative examination, unspecified 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 Diagnosis Cervical stenosis of spinal canal- Primary Spinal stenosis in cervical region Acute hyponatremia Hyposmolality and/or hyponatremia Cervical stenosis of spinal canal Spinal stenosis in cervical region Post-op pain Other acute postoperative pain Type II diabetes with terminal system operator use of insulin (HCC) Type II or unspecified type diabetes mellitus without mention of complication, not stated as uncontrolled Stage 3 chronic kidney disease (HCC) Hypertension Unspecified essential hypertension Obesity, Class II, BMI 35-39.9 Obesity, unspecified Acute hyponatremia Hyposmolality and/or hyponatremia Cardiac murmur- Primary Undiagnosed cardiac murmurs Hypercholesterolemia Pure hypercholesterolemia Gastroesophageal reflux disease, unspecified whether esophagitis present Malignant neoplasm of upper-outer quadrant of right breast in female, estrogen receptor positive (HCC) Anemia of chronic disease Anemia of other chronic disease Pre-op examination Preoperative examination, unspecified 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 Diagnosis Cervical stenosis of spinal canal- Primary Spinal stenosis in cervical region Acute hyponatremia Hyposmolality and/or hyponatremia Cervical stenosis of spinal canal Spinal stenosis in cervical region Post-op pain Other acute postoperative pain Type II diabetes with terminal system operator use of insulin (HCC) Type II or unspecified type diabetes mellitus without mention of complication, not stated as uncontrolled Stage 3 chronic kidney disease (HCC) Hypertension Unspecified essential hypertension Obesity, Class II, BMI 35-39.9 Obesity, unspecified Acute hyponatremia Hyposmolality and/or hyponatremia Cardiac murmur- Primary Undiagnosed cardiac murmurs Hypercholesterolemia Pure hypercholesterolemia Gastroesophageal reflux disease, unspecified whether esophagitis present Malignant neoplasm of upper-outer quadrant of right breast in female, estrogen receptor positive (HCC) Anemia of chronic disease Anemia of other chronic disease Pre-op examination Preoperative examination, unspecified 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) Type II or unspecified type diabetes mellitus without mention of complication, not stated as uncontrolled Stage 3 chronic kidney disease (HCC) Hypertension Unspecified essential hypertension Obesity, Class II, BMI 35-39.9 Obesity, unspecified Acute hyponatremia Hyposmolality and/or hyponatremia Cardiac murmur- Primary Undiagnosed cardiac murmurs Hypercholesterolemia Pure hypercholesterolemia Gastroesophageal reflux disease, unspecified whether esophagitis present Malignant neoplasm of upper-outer quadrant of right breast in female, estrogen receptor positive (HCC) Anemia of chronic disease Anemia of other chronic disease Pre-op examination Preoperative examination, unspecified 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) Coronary artery disease involving [place] coronary artery of [place] heart, unspecified whether angina present 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)- Primary Primary hypertension Unspecified essential hypertension Hypercholesterolemia Pure hypercholesterolemia Coronary artery disease involving [place] coronary artery of [place] heart, unspecified whether angina present Cardiac murmur Undiagnosed cardiac murmurs Gastroesophageal reflux disease, unspecified whether esophagitis present Diverticulitis of large intestine without perforation or abscess with bleeding Diverticulitis of colon with hemorrhage Stage 3 chronic kidney disease, unspecified whether stage 3a or 3b CKD (HCC) Type 2 diabetes mellitus with hyperglycemia, with long-term current use of insulin (HCC) Anemia of chronic disease Anemia of other chronic disease Obesity, Class II, BMI 35-39.9 Obesity, unspecified History of breast cancer Personal history of malignant neoplasm of breast Anxiety with depression History of colon cancer Personal history of malignant neoplasm of large intestine Pre-op evaluation Preoperative examination, unspecified Carpal tunnel syndrome, right Carpal tunnel syndrome 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) Type II or unspecified type diabetes mellitus without mention of complication, not stated as uncontrolled Stage 3 chronic kidney disease (HCC) Hypertension Unspecified essential hypertension Obesity, Class II, BMI 35-39.9 Obesity, unspecified Acute hyponatremia Hyposmolality and/or hyponatremia Cardiac murmur- Primary Undiagnosed cardiac murmurs Hypercholesterolemia Pure hypercholesterolemia Gastroesophageal reflux disease, unspecified whether esophagitis present Malignant neoplasm of upper-outer quadrant of right breast in female, estrogen receptor positive (HCC) Anemia of chronic disease Anemia of other chronic disease Pre-op examination Preoperative examination, unspecified 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) Type II or unspecified type diabetes mellitus without mention of complication, not stated as uncontrolled Stage 3 chronic kidney disease (HCC) Hypertension Unspecified essential hypertension Obesity, Class II, BMI 35-39.9 Obesity, unspecified Acute hyponatremia Hyposmolality and/or hyponatremia Cardiac murmur- Primary Undiagnosed cardiac murmurs Hypercholesterolemia Pure hypercholesterolemia Gastroesophageal reflux disease, unspecified whether esophagitis present Malignant neoplasm of upper-outer quadrant of right breast in female, estrogen receptor positive (HCC) Anemia of chronic disease Anemia of other chronic disease Pre-op examination Preoperative examination, unspecified 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 Author Joe Chance [facility] Note Date/Time October 30, 2024 8:4 6pm [facility] Medical Records Department [address] [place] [address] History & Physical Exam 10/30/242038 MR#: [id number] Acct: [id number] Name: ORION SORENSEN Rep #:[id number] : 1950 73 From: Joe Chance MD PCP: EDITH PereaC Status:AD M IN Location: [facility] [id number] HPI - General General Date of Admission: 10/30/24 Date of Service: 10/30/24 Chief Complaint: Gastrointestinal bleeding HPI Narrative ORION SORENSEN, is a 73 F who presents to the emergency room with chief complaint of gastrointestinal bleeding. Onset of symptoms began approximately 1month ago on and off and became worse this past week. She states she was filling the toilet bowl with red blood with every bowel movement over the past week. She has a history of neck surgery done in July and is still wearing aneck brace at this time. Approximately a week ago she took heavy dose of THC and ended up in the emergency room at another facility at which time her hemoglobin was in the 11.5 range and is currently at 9.7. Patient denies any chest pain, shortness of breath, fevers or chills however she does have a decreased appetite and tenderness over her left lower quadrant of the abdomen. Patient will be admitted and managed for GI bleed. PFSH Home Medications ?Medication ?Instructions ?Recorded ?Last Taken ?Type alendronate 70 mg tablet (Fosamax) 70 mg PO QWEEK 12/17 Unknown History aspirin 81 mg tablet,delayed 81 mg PO DAILY HEART 12/17 Unknown History release (Aspir-Low) calcium 600 mg (as 1 ea PO BID SUPPLEMENT 09/06 Unknown History carbonate)-vitamin D3 20 mcg (800 unit) tablet (Caltrate with Vitamin D3) hydrocodone-acetaminophen 5-325mg 1 tab PO Q6H PRN PRN Pain 09/06/17 Unknown History 5mg-325mg insulin aspart U-100 100 unit/mL 15 units subcut TIDCM DIABETES 09/06/17 Unknown History (3 mL) subcutaneous pen (Novolog FlexPen U-100 Insulin aspart) insulin glargine 100 unit/mL (3 30 units subcut QHS DI ABETES 09/06/17 Unknown History mL) subcutaneous pen (Lantus Solostar U-100 Insulin) naproxen sodium 220 mg tablet 220 mg PO Q8H PRN PRN Pa in 09/06/17 Unknown History (Aleve) omeprazole 40 mg capsule,delayed 40 mg PO DAILY REFLUX 09/06/17 09/13/17 06:00 History release simvastatin 10 mg tablet (Zocor) 10 mg PO QHS CHOLESTE ROL 09/06/17 Unknown History solifenacin 10 mg tablet (Vesicare) 10 mg PO DAILY JOY DDER 09/06/17 Unknown History tizanidine 2 mg tablet 2 mg PO Q8H PRN Pain 8 Unknown History valsartan 40 mg tablet (Diovan) 40 mg PO DAILY BP 12/1709/13/17 06:00 History cephalexin 500 mg capsule 500 mg PO Q12 #20 caps 09/14 Unknown Rx hydrocodone-acetaminophen 5-325mg 1 ea PO Q6H PRN PRN Mod-Severe 09/14/17 Unknown Rx 5mg-325mg Pain (4-10/10) 4 days #15 ta bs Allergy/AdvReac Type Severity Reaction Status Date / Time celecoxib (From Celebrex) Allergy Hives Verified 10/30/24 16:49 ramipril Allergy Hives Verified 10/30/24 16:49 rofecoxib (From Vioxx) Allergy Hives Verified 10/30/24 16:49 letrozole (From Femara) AdvReac Pain in Verified 10/30/24 16:49 joints Social History Smoking Status: Former smoker ROS Constitutional Constitutional: Denies chills or fever(s) Eyes Eyes: Denies change in vision ENT HEENT: Denies abnormal hearing Cardiovascular Cardiovascular: Denies chest pain Respiratory/Chest Respiratory/Chest: Denies shortness of breath at rest Gastrointestinal Gastrointestinal: Reports abdominal pain and hematochezia; Denies nausea or vomiting Genitourinary Genitourinary: Denies dysuria Musculoskeletal Musculoskeletal: Denies back pain Integumentary Integumentary: Denies dry skin Neurologic Neurologic: Denies abnormal gait Psychiatric Psychiatric: Denies anxiety Hematologic/Lymphatic Hematologic/Lymphatic: Reports anemia Vital Signs Vital Signs Vital Signs: 10/30/24 16:49 10/30/24 17:49 10/30/24 20:00 Temperature 96.3 F L Temperature Source Temporal Pulse Rate 84 Pulse Rate [Lying] 72 Pulse Rate [Sitting (for 1 minute prior to obtaining)] 73 Pulse Rate [Standing (for 1 minute prior to obtaining)] 74 Respiratory Rate 15 Blood Pressure 151/103 H 140/70 H Blood Pressure [Lying] 175/74 H Blood Pressure [Sitting (for 1 minute prior to obtaining)] 169/71 H Blood Pressure [Standing (for 1 minute prior to obtaining)] 150/76 H Blood Pressure Mean 119 93 Blood Pressure Mean [Lying] 107 Blood Pressure Mean [Sitting (for 1 minute prior to obtaining)] 103 Blood Pressure Mean [Standing (for 1 minute prior to obtaining)] 100 Pulse Ox 97 Oxygen Delivery Method Room Air Weight Weight: 190 lb Body Mass Index (BMI) 35.9 Physical Exam Const alert and oriented x3 General Appearance: cooperative and well developed HEENT normocephalic and head/scalp atraumatic Eyes PERRL Neck no lymphadenopathy Lymph Lymphatic: no lymphadenopathy noted Resp normal respiratory effort, normal air movement and clear to auscultation bilaterally Cardio regular rate, regular rhythm, S1 normal heart sound, S2 normal heart sound and no murmurs GI GI Narrative: +BS Inspection: abdominal distention Palpation: tender LLQ Extremity normal capillary refill Skin General Skin Exam: no breakdown Neuro no focal motor deficits and no sensory deficits noted Psych thought process normal, cooperative and affect normal Results Lab / Micro Data 10/30/24 17:18 10/30/24 17:18 Labs: Laboratory Results - last 24 hr 10/30/24 17:18: WBC 5.9, RBC 3.27 L, Hgb 9.7 L, Hct 28.6 L, MCV 87.5, MCH 29.7, MCHC 33.9, RDW Std Deviation 48.5 H, RDW Coeff of Miriam 15.3 H, Plt Count 276, MPV8.1, Immature Gran % (Auto) 0.500, Neut % (Auto) 52.6, Lymph % (Auto) 35.5, [place]ati% (Auto) 8.3, Eos % (Auto) 2.2, Baso % (Auto) 0.9, Absolute Neuts (auto) 3.1, Absolute Lymphs (auto) 2.09, Nucleated RBC % 0, Sodium 135, Potassium 4.0, Chloride 99, Carbon Dioxide 21.5, Anion Gap 14, BUN 15, Creatinine 0.93, Estim Creat Clear Calc 52.11, Est GFR (MDRD) Non-Af 64, BUN/Creatinine Ratio 15.7, Glucose 193 H, Lactic Acid 1.5, Calcium 9.3 10/30/24 18:17: Urine Color Straw, Urine Clarity Clear, Urine pH 6.5, Ur Specific Collins 1.010, Urine Protein 30 H, Urine Glucose (UA) Normal, Urine Ketones Negative, Urine Occult Blood 25 H, Urine Nitrite Negative, Urine Bilirubin Negative, Urine Urobilinogen Normal, Ur Leukocyte Esterase 25 H, UrineRBC 0-5 SEEN, Urine WBC 0- 5 SEEN, Ur Squamous Epith Cells 0-5 SEEN, Urine Bacteria 0 SEEN, Urine Mucus 0 SEEN Micro: Microbiology 10/30/24 17:21 Stool Stool Occult Blood (MONY) - Final Occult Blood Positive Imaging Radiology Impression Abdomen/Pelvis CT 10/30/24 17:08 IMPRESSION: Mild stool burden within the large bowel. No inflammatory changes of the bowel loops. Umbilical hernia containing a focal loop of transverse colon, no inflammatory changes to suggest strangulation. Reading Location: [facility] Assessment & Plan Assessment/Plan (1) Weakness: (2) Anemia: (3) Acute lower GI bleeding: PLAN: Plan 1 acute GI bleed?stable at present with no active bleeding at this time?admit patient to general medical floor, IV Protonix 40 mg every 12 hours, make n.p.o. at midnight pending evaluation from GI specialist Dr. Glez. Repeat H&H every 4 hours. 2. DVT prophylaxis?SCDs 3. Diabetes?blood sugar checks every 6 hours and will add sliding scale insulin 4. Hyperlipidemia?continue statin medication 5. Hypertension?continue routine home antihypertensive therapy Charges/Coding Visit Charges Inpatient E&M: 62539 Init Hosp L2 10/30/242045 <Electronically signed by Joe Chance MD> Cosigner Signature (if applicable): CC: ROSENDO Goldstein; Dr. Joe Cahnce MD~ Signed [facility] Work Phone: Hospital course Narrative No data available for this section [facility] Hospital Discharge instructions No data available for this section [facility] Progress note No data available for this section [facility] Reason for referral (narrative)* Diagnostic Procedure Only (Routine) - New Request Specialty Diagnoses / Procedures Referred By Contac t Referred To Contact XR IMAGING Diagnoses Cervical stenosis of spine Other specified disorders of bone density and structure, other site Procedures DXA-AXIAL SKELETON DXA BONE DENSITY STUDY 1/> SITES AXIAL SKEL Bruno Lares MD [address] [place] [address] [place] [address] Referral ID Status Reason Start Date Expiration Date Visits Requested Visits Authorized [id number] New Request Auto-Generat ed Referral 4 06/21/2025 1 1 * Consult, Test, Treat (Routine) - Authorized Specialty Diagnoses / Procedures Referred By Contac t Referred To Contact Neurology Diagnoses Tremors of nervous system Procedures CONSULT TO NEUROLOGY OFFICE/OUTPATIENT NEW HIGH MDM 60 MINUTES Bruno Lares MD [address] [facility] [place] [address] Referral ID Status Reason Start Date Expiration Date Visits Requested Visits Authorized [id number] Authorized PCP Requested Referral 4 05/22/2025 1 1 * MRI/CT (Routine) - New Request Specialty Diagnoses / Procedures Referred By Freda t Referred To Contact CT IMAGING Diagnoses Spinal stenosis of cervical region Procedures CT CERVICAL SPINE WO IVCON CT CERVICAL SPINE W/O CONTRAST MATERIAL Bruno Lares MD [address] [place] [address] Ct Imaging [facility] Referral ID Status Reason Start Date Expiration Date Visits Requested Visits Authorized [id number] New Request Auto-Generat ed Referral 06/21/2025 1 1 * Diagnostic Procedure Only (Routine) - Closed Specialty Diagnoses / Procedures Referred By Freda ford Referred To Contact XR IMAGING Diagnoses Neck pain Procedures XR CERV OTHER 4V AP/LAT/FLX/EXT RADEX SPINE CERVICAL 4 OR 5 VIEWS Bruno Lares MD [address] [place] [address] [place] [address] Referral ID Status Reason Start Date Expiration Date V isits Requested Visits Authorized [id number] Closed Auto-Generate d Referral 05/22/2024 06/21/2025 1 1 [facility] for referral (narrative)* Outpatient Procedure (Routine) - New Request Specialty Diagnoses / Procedures Referred By Freda ford Referred To [facility] Diagnoses Spinal stenosis of cervical region Procedures ECG COMPLETE ECG ROUTINE ECG W/LEAST 12 LDS W/I&R Bruno Lares MD [address] [place] [address] [facility] [place] [address] [place] [address] Referral ID Status Reason Start Date Expiration Date Visits Requested Visits Authorized [id number] New Request Auto-Generat ed Referral 07/07/2024 07/07/2025 1 1 [facility] for referral (narrative)* Diagnostic Procedure Only (Routine) - New Request Specialty Diagnoses / Procedures Referred By Contac t Referred To Contact XR IMAGING Diagnoses S/P cervical spinal fusion Procedures XR CERV GENERAL 2V AP/LAT RADEX SPINE CERVICAL 2 OR 3 VIEWS Bruno Lares MD [address] [facility] [place] [address] [place] [address] Referral ID Status Reason Start Date Expiration Date Visits Requested Visits Authorized [id number] New Request Auto-Generat ed Referral 08/03/2024 09/02/2025 1 1 * Diagnostic Procedure Only (Routine) - Closed Specialty Diagnoses / Procedures Referred By Contac t Referred To Contact XR IMAGING Diagnoses S/P cervical spinal fusion Procedures XR CERV GENERAL 2V AP/LAT RADEX SPINE CERVICAL 2 OR 3 VIEWS Bruno Lares MD [address] [facility] [place] [address] [place] [address] Referral ID Status Reason Start Date Expiration Date V isits Requested Visits Authorized [id number] Closed Auto-Generate d Referral 07/27/2024 08/26/2025 1 1 [facility] for referral (narrative)* Diagnostic Procedure Only (Routine) - Authorized Specialty Diagnoses / Procedures Referred By Contac t Referred To Contact XR IMAGING Diagnoses S/P cervical spinal fusion Procedures XR CERV OTHER 4V AP/LAT/FLX/EXT RADEX SPINE CERVICAL 4 OR 5 VIEWS Bruno Lares MD [address] [facility] [place] [address] [place] [address] Referral ID Status Reason Start Date Expiration Date Visits Requested Visits Authorized [id number] Authorized Auto-Generat ed Referral 08/31/2024 09/30/2025 1 1 [facility] for referral (narrative)No reason for referral [facility] Work Phone: Reason for visit Narrative* Diagnostic Procedure Only (Routine) - Closed Specialty Diagnoses / Procedures Referred By Contac t Referred To Contact XR IMAGING Diagnoses Neck pain Procedures XR CERV OTHER 4V AP/LAT/FLX/EXT RADEX SPINE CERVICAL 4 OR 5 VIEWS Bruno Lares MD [address] [facility] [place] [address] [place] [address] Referral ID Status Reason Start Date Expiration Date V isits Requested Visits Authorized [id number] Closed Auto-Generate d Referral 05/22/2024 06/21/2025 1 1 [facility] for visit Narrative* Diagnostic Procedure Only (Routine) - Closed Specialty Diagnoses / Procedures Referred By Contac t Referred To Contact XR IMAGING Diagnoses S/P cervical spinal fusion Procedures XR CERV GENERAL 2V AP/LAT RADEX SPINE CERVICAL 2 OR 3 VIEWS Bruno Lares MD [address] [facility] [place] [address] [place] [address] Referral ID Status Reason Start Date Expiration Date V isits Requested Visits Authorized [id number] Closed Auto-Generate d Referral 07/27/2024 08/26/2025 1 1 [facility] for visit Narrative* Diagnostic Procedure Only (Routine) - Closed Specialty Diagnoses / Procedures Referred By Contac t Referred To Contact XR IMAGING Diagnoses S/P cervical spinal fusion Procedures XR CERV GENERAL 2V AP/LAT RADEX SPINE CERVICAL 2 OR 3 VIEWS Bruno Lares MD [address] [facility] [place] [address] [place] [address] Referral ID Status Reason Start Date Expiration Date V isits Requested Visits Authorized [id number] Closed Auto-Generate d Referral 08/03/2024 09/02/2025 1 1 [facility] for visit Narrative* Diagnostic Procedure Only (Routine) - Closed Specialty Diagnoses / Procedures Referred By Contac t Referred To Contact XR IMAGING Diagnoses S/P cervical spinal fusion Procedures XR CERV OTHER 4V AP/LAT/FLX/EXT RADEX SPINE CERVICAL 4 OR 5 VIEWS Bruno Lares MD [address] [place] [address] Phone: tel: fax: [place] [address] Referral ID Status Reason Start Date Expiration Date V isits Requested Visits Authorized [id number] Closed Auto-Generate d Referral 08/31/2024 09/30/2025 1 1 [facility] for visit Narrative* Diagnostic Procedure Only (Routine) - Closed Specialty Diagnoses / Procedures Referred By Contac t Referred To Contact XR IMAGING Diagnoses S/P cervical spinal fusion Procedures XR CERV OTHER 4V AP/LAT/FLX/EXT RADEX SPINE CERVICAL 4 OR 5 VIEWS Bruno Lares MD [address] [place] [address] Phone: tel: fax: XR IMAGING [facility] Referral ID Status Reason Start Date Expiration Date V isits Requested Visits Authorized [id number] Closed Auto-Generate d Referral 10/12/2024 11/11/2025 1 1 [facility] for visit Narrative* Outpatient Procedure (Routine) - Closed Specialty Diagnoses / Procedures Referred By Contac t Referred To Contact [facility] Diagnoses S/P cervical spinal fusion Procedures EMG(NEURO/NI) NERVE CONDUCTION STUDIES 9-10 STUDIES Bruno Lares MD [address] [place] [address] Phone: tel: fax: Neurology [address] [place] [address] Phone: tel: Referral ID Status Reason Start Date Expiration Date V isits Requested Visits Authorized [id number] Closed Auto-Generate d Referral 01/17/2025 01/17/2026 1 1 [facility] for visit Narrative* MRI/CT (Routine) - Closed Specialty Diagnoses / Procedures Referred By Contac t Referred To Contact MR IMAGING Diagnoses S/P cervical spinal fusion Procedures MRI CERVICAL SPINE WO IVCON MRI SPINAL CANAL CERVICAL W/O CONTRAST MATRL Bruno Lares MD [address] [place] [address] Rd YUVAL Alexandre [address] Phone: tel: fax: [place] [address] Referral ID Status Reason Start Date Expiration Date V isits Requested Visits Authorized [id number] Closed Auto-Generate d Referral 02/08/2025 03/10/2026 [address] [facility] Summary Purpose Family History No Family History Records Found Relationship Condition Age at Onset Recorded Date/T tanya father Cerebrovascular accident (CVA) 39 sister Malignant neoplasm of breast Unknown Diabetes mellitus Unknown mother Disorder of thyroid Unknown brother Arthritis Unknown Malignant neoplasm of colon Unknown Mental disorder Unknown Psychiatric care Unknown Cerebrovascular accident (CVA) Unknown Advance Directives No Advanced Directives Records FoundDocuments on File Type Date Recorded Patient Cigar Head Holer Expl anation Advance Directive(s) 09/25/2019 10:06 AM Advance Directive(s) 12/21/2017 12:19 PM Documents on File Type Date Recorded Patient Cigar Head Holer Expl anation Advance Directive(s) 09/25/2019 10:06 AM Advance Directive(s) 12/21/2017 12:19 PM Advance Directive Response Recorded Date/ Time Living Will No October 30, 2024 4:48pm Do you have a Healthcare Power of Communications Advisor? No October 30, 2024 4:48pm Advance Directive Response Recorded Date/ Time Living Will No October 30, 2024 10:21pm Do you have a Healthcare Power of Communications Advisor? No October 30, 2024 10:21pm Advance Directive Response Recorded Date/ Time Living Will Yes November 20, 2024 10:17pm Do you have a Healthcare Power of Communications Advisor? Yes November 20, 2024 10:17pm Name of Medical Power of Communications Advisor ALICJA PRUDENCIO Ford November 20, 2024 10:17pm Living Will No October 30, 2024 10:21pm Do you have a Healthcare Power of Communications Advisor? No October 30, 2024 10:21pm Chief Complaint and Reason for Visit Chief Complaint Admit Date GI BLEED October 30, 2024 8:4 2pm GI BLEED October 30, 2024 8:4 6pm Reason for Visit Admit Date Acute lower GI bleeding October 30, 2024 8:46pm Anemia October 30, 2024 8:4 6pm Weakness October 30, 2024 8:4 6pm Chief Complaint Admit Date GI BLEED October 30, 2024 8:4 2pm GI BLEED October 30, 2024 8:4 6pm AM EKG October 31, 2024 4:37 am GI BLEED October 31, 2024 7:43 am GI BLEED November 01, 2024 7:23 am GI BLEED November 01, 2024 2:38 pm GI BLEED November 02, 2024 9:35 am Chief Complaint Admit Date GI BLEED October 30, 2024 8:4 2pm GI BLEED October 30, 2024 8:4 6pm AM EKG October 31, 2024 4:37 am GI BLEED October 31, 2024 7:43 am GI BLEED November 01, 2024 7:23 am GI BLEED November 01, 2024 2:38 pm GI BLEED November 02, 2024 9:35 am Hospital FU November 16, 2024 9:4 1am EORDER November 16, 2024 11: 02am SUSPECTED PNEUMONIA, RESPIRATORY INSUFFI CIENCY November 20, 2024 9:59pm SUSPECTED PNEUMONIA, RESPIRATORY INSUFFI CIENCY November 21, 2024 7:31am SUSPECTED PNEUMONIA, RESPIRATORY INSUFFI CIENCY November 22, 2024 12:01pm 6 WK FU December 28, 2024 9:50a m Reason for Visit Admit Date Anemia October 30, 2024 8:4 6pm Acute lower GI bleeding October 30, 2024 8:46pm Weakness October 30, 2024 8:4 6pm Anemia November 16, 2024 9:4 1am 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 November 162024 9:41am Ambulatory dysfunction November 20, 2024 9:59pm Fall at home November 20, 2024 9:5 9pm Generalized weakness November 20, 2024 9: 59pm Hypoglycemia associated with type 2 diab etes mellitus November 20, 2024 9:59pm Pneumonia November 20, 2024 9:5 9pm Respiratory insufficiency November 20 9:59pm Obesity (BMI 30-39.9) November 20, 2024 9 :59pm Decompression injury of spinal cord Apri l 2024 9:59pm History of lower GI bleeding November 20, 2024 9:59pm Chief Complaint Admit Date GI BLEED October 30, 2024 8:4 2pm GI BLEED October 30, 2024 8:4 6pm AM EKG October 31, 2024 4:37 am GI BLEED October 31, 2024 7:43 am GI BLEED November 01, 2024 7:23 am GI BLEED November 01, 2024 2:38 pm GI BLEED November 02, 2024 9:35 am Hospital FU November 16, 2024 9:4 1am EORDER November 16, 2024 11: 02am SUSPECTED PNEUMONIA, RESPIRATORY INSUFFI CIENCY November 20, 2024 9:59pm SUSPECTED PNEUMONIA, RESPIRATORY INSUFFI CIENCY November 21, 2024 7:31am SUSPECTED PNEUMONIA, RESPIRATORY INSUFFI CIENCY November 22, 2024 12:01pm 6 WK FU December 28, 2024 9:50a m E-ORDER December 28, 2024 10:26 am Reason for Visit Admit Date Anemia October 30, 2024 8:4 6pm Acute lower GI bleeding October 30, 2024 8:46pm Weakness October 30, 2024 8:4 6pm Anemia November 16, 2024 9:4 1am 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 November 162024 9:41am Ambulatory dysfunction November 20, 2024 9:59pm Fall at home November 20, 2024 9:5 9pm Generalized weakness November 20, 2024 9: 59pm Hypoglycemia associated with type 2 diab etes mellitus November 20, 2024 9:59pm Pneumonia November 20, 2024 9:5 9pm Respiratory insufficiency November 20 9:59pm Obesity (BMI 30-39.9) November 20, 2024 9 :59pm Decompression injury of spinal cord Apri l 2024 9:59pm History of lower GI bleeding November 20, 2024 9:59pm Constipation December 28, 2024 9:50a m Chief Complaint Admit Date 6 WK FU December 28, 2024 9:50a m E-ORDER December 28, 2024 10:26 am 3 M FU March 29, 2025 9: 48am Reason for Visit Admit Date Constipation December 28, 2024 9:50a m Additional Source Comments INFORMATION SOURCE (unrecogn ized section and content) DATE CREATED AUTHOR 01/24/2018 [facility] DATE CREATED AUTHOR AUTHOR'S ORGANIZ ATION 07/13/2020 [facility] DATE CREATED AUTHOR AUTHOR'S ORGANIZ ATION 02/24/2024 [facility] ([place]) DATE CREATED AUTHOR AUTHOR'S ORGANIZ ATION 03/06/2025 [facility] DATE CREATED AUTHOR AUTHOR'S ORGANIZ ATION 03/31/2025 [facility] DATE CREATED AUTHOR AUTHOR'S ORGANIZ ATION 04/12/2025 [facility] DATE CREATED AUTHOR AUTHOR'S ORGANIZ ATION 05/25/2025 [facility] DATE CREATED AUTHOR AUTHOR'S ORGANIZ ATION 06/01/2025 [facility] DATE CREATED AUTHOR AUTHOR'S ORGANIZ ATION 06/07/2025 [facility] Care Team (unrecognized sect ion and content) Care Team Personnel Name: TERRIE GOLDSTEIN APRN-DRYING MACHINE RECEIVER Position: P4 Advanced Practice Nurse Member Role: Primary Care Physician Address: Address: [facility] [address] Care Team Related Persons Name: PILLO SORENSEN Name: PILLO SORENSEN Name: PILLO SORENSEN Name: PILLO SORENSEN Care Team Personnel Name: TERRIE GOLDSTEIN APRN-DRYING MACHINE RECEIVER Position: P4 Advanced Practice Nurse Member Role: Primary Care Physician Address: Address: [facility] [address] Care Team Related Persons Name: PILLO SORENSEN Name: PILLO SORENSEN Name: PILLO SORENSEN Name: PILLO SORENSEN Care Team Personnel Name: TERRIE GOLDSTEIN APRN-DRYING MACHINE RECEIVER Position: P4 Advanced Practice Nurse Member Role: Primary Care Physician Address: Address: [facility] [address] Care Team Related Persons Name: PILLO SORENSEN Name: PILLO SORENSEN Name: PILLO SORENSEN Name: PILLO SORENSEN Source Comments (unrecognize d section and content) In the event this informatio n is protected by the Federal Confidentiality of Alcohol and Drug Abuse Patient Records regulations: The Federal rules restrict any use of the information to criminally investigate or prosecute any alcohol or drug abuse patient.[facility] the event this information is protected by the Federal Confidentiality of Alcohol and Drug Abuse Patient Records regulations: The Federal rules restrict any use of the information to criminally investigate or prosecute any alcohol or drug abuse patient.[facility] the event this information is protected by the Federal Confidentiality of Alcohol and Drug Abuse Patient Records regulations: The Federal rules restrict any use of the information to criminally investigate or prosecute any alcohol or drug abuse patient.[facility] Hospital[facility] the event this information is protected by the Federal Confidentiality of Alcohol and Drug Abuse Patient Records regulations: The Federal rules restrict any use of the information to criminally investigate or prosecute any alcohol or drug abuse patient.[facility] Hospital[facility] the event this information is protected by the Federal Confidentiality of Alcohol and Drug Abuse Patient Records regulations: The Federal rules restrict any use of the information to criminally investigate or prosecute any alcohol or drug abuse patient.[facility] Hospital[facility] the event this information is protected by the Federal Confidentiality of Alcohol and Drug Abuse Patient Records regulations: The Federal rules restrict any use of the information to criminally investigate or prosecute any alcohol or drug abuse patient.[facility] Hospital[facility] the event this information is protected by the Federal Confidentiality of Alcohol and Drug Abuse Patient Records regulations: The Federal rules restrict any use of the information to criminally investigate or prosecute any alcohol or drug abuse patient.[facility] Hospital[facility] the event this information is protected by the Federal Confidentiality of Alcohol and Drug Abuse Patient Records regulations: The Federal rules restrict any use of the information to criminally investigate or prosecute any alcohol or drug abuse patient.[facility] Hospital[facility] the event this information is protected by the Federal Confidentiality of Alcohol and Drug Abuse Patient Records regulations: The Federal rules restrict any use of the information to criminally investigate or prosecute any alcohol or drug abuse patient.[facility] Hospital[facility] the event this information is protected by the Federal Confidentiality of Alcohol and Drug Abuse Patient Records regulations: The Federal rules restrict any use of the information to criminally investigate or prosecute any alcohol or drug abuse patient.[facility] Hospital[facility] the event this information is protected by the Federal Confidentiality of Alcohol and Drug Abuse Patient Records regulations: The Federal rules restrict any use of the information to criminally investigate or prosecute any alcohol or drug abuse patient.[facility] HospitalIn the event this information is protected by the Federal Confidentiality of Alcohol and Drug Abuse Patient Records regulations: The Federal rules restrict any use of the information to criminally investigate or prosecute any alcohol or drug abuse patient.[facility] the event this information is protected by the Federal Confidentiality of Alcohol and Drug Abuse Patient Records regulations: The Federal rules restrict any use of the information to criminally investigate or prosecute any alcohol or drug abuse patient.[facility] HospitalIn the event this information is protected by the Federal Confidentiality of Alcohol and Drug Abuse Patient Records regulations: The Federal rules restrict any use of the information to criminally investigate or prosecute any alcohol or drug abuse patient.[facility] HospitalIn the event this information is protected by the Federal Confidentiality of Alcohol and Drug Abuse Patient Records regulations: The Federal rules restrict any use of the information to criminally investigate or prosecute any alcohol or drug abuse patient.[facility] HospitalIn the event this information is protected by the Federal Confidentiality of Alcohol and Drug Abuse Patient Records regulations: The Federal rules restrict any use of the information to criminally investigate or prosecute any alcohol or drug abuse patient.[facility] HospitalIn the event this information is protected by the Federal Confidentiality of Alcohol and Drug Abuse Patient Records regulations: The Federal rules restrict any use of the information to criminally investigate or prosecute any alcohol or drug abuse patient.[facility] HospitalIn the event this information is protected by the Federal Confidentiality of Alcohol and Drug Abuse Patient Records regulations: The Federal rules restrict any use of the information to criminally investigate or prosecute any alcohol or drug abuse patient.[facility] HospitalIn the event this information is protected by the Federal Confidentiality of Alcohol and Drug Abuse Patient Records regulations: The Federal rules restrict any use of the information to criminally investigate or prosecute any alcohol or drug abuse patient.[facility] HospitalIn the event this information is protected by the Federal Confidentiality of Alcohol and Drug Abuse Patient Records regulations: The Federal rules restrict any use of the information to criminally investigate or prosecute any alcohol or drug abuse patient.[facility] HospitalIn the event this information is protected by the Federal Confidentiality of Alcohol and Drug Abuse Patient Records regulations: The Federal rules restrict any use of the information to criminally investigate or prosecute any alcohol or drug abuse patient.[facility] HospitalIn the event this information is protected by the Federal Confidentiality of Alcohol and Drug Abuse Patient Records regulations: The Federal rules restrict any use of the information to criminally investigate or prosecute any alcohol or drug abuse patient.[facility] HospitalIn the event this information is protected by the Federal Confidentiality of Alcohol and Drug Abuse Patient Records regulations: The Federal rules restrict any use of the information to criminally investigate or prosecute any alcohol or drug abuse patient.[facility] HospitalIn the event this information is protected by the Federal Confidentiality of Alcohol and Drug Abuse Patient Records regulations: The Federal rules restrict any use of the information to criminally investigate or prosecute any alcohol or drug abuse patient.[facility] HospitalIn the event this information is protected by the Federal Confidentiality of Alcohol and Drug Abuse Patient Records regulations: The Federal rules restrict any use of the information to criminally investigate or prosecute any alcohol or drug abuse patient.[facility] HospitalIn the event this information is protected by the Federal Confidentiality of Alcohol and Drug Abuse Patient Records regulations: The Federal rules restrict any use of the information to criminally investigate or prosecute any alcohol or drug abuse patient.[facility] HospitalIn the event this information is protected by the Federal Confidentiality of Alcohol and Drug Abuse Patient Records regulations: The Federal rules restrict any use of the information to criminally investigate or prosecute any alcohol or drug abuse patient.[facility] HospitalIn the event this information is protected by the Federal Confidentiality of Alcohol and Drug Abuse Patient Records regulations: The Federal rules restrict any use of the information to criminally investigate or prosecute any alcohol or drug abuse patient.[facility] HospitalIn the event this information is protected by the Federal Confidentiality of Alcohol and Drug Abuse Patient Records regulations: The Federal rules restrict any use of the information to criminally investigate or prosecute any alcohol or drug abuse patient.[facility] HospitalIn the event this information is protected by the Federal Confidentiality of Alcohol and Drug Abuse Patient Records regulations: The Federal rules restrict any use of the information to criminally investigate or prosecute any alcohol or drug abuse patient.[facility] HospitalIn the event this information is protected by the Federal Confidentiality of Alcohol and Drug Abuse Patient Records regulations: The Federal rules restrict any use of the information to criminally investigate or prosecute any alcohol or drug abuse patient.[facility] HospitalIn the event this information is protected by the Federal Confidentiality of Alcohol and Drug Abuse Patient Records regulations: The Federal rules restrict any use of the information to criminally investigate or prosecute any alcohol or drug abuse patient.[facility] HospitalIn the event this information is protected by the Federal Confidentiality of Alcohol and Drug Abuse Patient Records regulations: The Federal rules restrict any use of the information to criminally investigate or prosecute any alcohol or drug abuse patient.[facility] HospitalIn the event this information is protected by the Federal Confidentiality of Alcohol and Drug Abuse Patient Records regulations: The Federal rules restrict any use of the information to criminally investigate or prosecute any alcohol or drug abuse patient.[facility] HospitalIn the event this information is protected by the Federal Confidentiality of Alcohol and Drug Abuse Patient Records regulations: The Federal rules restrict any use of the information to criminally investigate or prosecute any alcohol or drug abuse patient.[facility] HospitalIn the event this information is protected by the Federal Confidentiality of Alcohol and Drug Abuse Patient Records regulations: The Federal rules restrict any use of the information to criminally investigate or prosecute any alcohol or drug abuse patient.[facility] HospitalIn the event this information is protected by the Federal Confidentiality of Alcohol and Drug Abuse Patient Records regulations: The Federal rules restrict any use of the information to criminally investigate or prosecute any alcohol or drug abuse patient.[facility] HospitalIn the event this information is protected by the Federal Confidentiality of Alcohol and Drug Abuse Patient Records regulations: The Federal rules restrict any use of the information to criminally investigate or prosecute any alcohol or drug abuse patient.[facility] HospitalIn the event this information is protected by the Federal Confidentiality of Alcohol and Drug Abuse Patient Records regulations: The Federal rules restrict any use of the information to criminally investigate or prosecute any alcohol or drug abuse patient.[facility] Reason for Visit (unrecogniz ed section and content) Reason Comments Established Patient Reason Comments Patient Update Reason Comments Patient Question Reason Comments New Patient Reason Comments Preparations For Surgery Specialty Diagnoses / Procedures Referred By Contac t Referred To Contact CT IMAGING Diagnoses Spinal stenosis of cervical region Procedures CT CERVICAL SPINE WO IVCON CT CERVICAL SPINE W/O CONTRAST MATERIAL Bruno Lares MD [address] [place] [address] [place] [address] Referral ID Status Reason Start Date Expiration Date V isits Requested Visits Authorized [id number] Closed Auto-Generate d Referral 05/22/2024 06/21/2025 1 1 Reason Comments Consult Hernia, left abdomen Reason Onset Date Comments abnormal labs 07/20/2024 Reason Comments Post Op Reason Comments Post Op Reason Comments Established Patient Reason Comments Established Patient Reason Comments New Pain Specialty Diagnoses / Procedures Referred By Contac t Referred To Contact Orthopedics Diagnoses Bilateral carpal tunnel syndrome Procedures CONSULT TO ORTHOPAEDICS OFFICE/OUTPATIENT NEW HIGH MDM 60 MINUTES Chau Horowitz MD [address] [facility] [address] [place] [address] Phone: tel: fax: Referral ID Status Reason Start Date Expiration Date V isits Requested Visits Authorized [id number] Closed PCP Requested Referral 02/15/2025 02/07/2026 1 1 Reason Comments PACC Rt CTR on 03/20/2025 Reason Comments Refill Request Care Teams (unrecognized sec tion and content) Camp Housekeeper Relationship Specialty Start Date End Date Ivonne Avila [address] [place] [address] PCP - General Family Medicine 07/13/17 Sharonda Portillo, EDMUND Specialty Sales Merchandiser Oncology 01/19/18 Marifer Foy MD [address] [place] [phone] General Surgery 08/25/19 Jade Otoole MD [address] [place] [address] Hematology/Oncology 08/25/19 Zaheer Bianchi MD [address] [place], [place] [address] General Surgery 08/25/19 Camp Housekeeper Relationship Specialty Start Date End Date Ivonne Avila [address] [place] [address] (Work) PCP - General Family Medicine 07/13/17 Sharonda Portillo, EDMUND Specialty Sales Merchandiser Oncology 01/19/18 Marifer Foy MD [address] [place] [address] General Surgery 08/25/19 aJde Otoole MD [address] [place] [address] Hematology/Oncology 08/25/19 Zaheer Bianchi MD [address] [place], [place] [address] General Surgery 08/25/19 Camp Housekeeper Relationship Specialty Start Date End Date Ivonne Avila [address] [place] [address] PCP - General Family Medicine 07/13/17 Mairfer Foy MD [address] [place] [address] General Surgery 08/25/19 Zaheer Bianchi MD [address] [place] [address] General Surgery 08/25/19 Isacc Davis MD [address] [place] [address] Hematology/Oncology 07/08/23 Camp Housekeeper Relationship Specialty Start Date End Date Ivonne Avila [address] [place] [address] PCP - General Family Medicine 07/13/17 Marifer Foy MD [address] [place] [address] General Surgery 08/25/19 Zaheer Bianchi MD [address] [place], [place] [address] General Surgery 08/25/19 Isacc Davis MD [address] [place] [address] Hematology/Oncology 07/08/23 Camp Housekeeper Relationship Specialty Start Date End Date Margarita Ivonne Caseome [address] [place] [address] PCP - General Family Medicine 07/13/17 Marifer Foy MD [address] [place] [address] General Surgery 08/25/19 Zaheer Bianchi MD [address] [place], [place] [id number] General Surgery 08/25/19 Isacc Davis MD [address] [place] [address] Hematology/Oncology 07/08/23 Camp Housekeeper Relationship Specialty Start Date End Date Ivonne Avila [address] [place] [address] PCP - General Family Medicine 07/13/17 Marifer Foy MD [address] [place] [address] General Surgery 08/25/19 Zaheer Bianchi MD [address] [place], [place] [address] General Surgery 08/25/19 Isacc Davis MD [address] [place], [place] [address] Hematology/Oncology 07/08/23 Camp Housekeeper Relationship Specialty Start Date End Date Ivonne Avila [address] [place] [address] PCP - General Family Medicine 07/13/17 Marifer Foy MD [address] [place] [address] General Surgery 08/25/19 Zaheer Bianchi MD [address] [place], [place] [address] General Surgery 08/25/19 Isacc Davis MD [address] [place] [address] Hematology/Oncology 07/08/23 Camp Housekeeper Relationship Specialty Start Date End Date Ivonne Avila [address] [place] [address] PCP - General Family Medicine 07/13/17 Marifer Foy MD [address] [place] [address] General Surgery 08/25/19 Zaheer Bianchi MD [address] [place] [address] General Surgery 08/25/19 Isacc Davis MD [address] [place] [address] Hematology/Oncology 07/08/23 Camp Housekeeper Relationship Specialty Start Date End Date Ivonne Avila [address] [place] [address] PCP - General Family Medicine 07/13/17 Marifer Foy MD [address] [place] [address] General Surgery 08/25/19 Zaheer Bianchi MD [address] [place] [address] General Surgery 08/25/19 Isacc Davis MD [address] [place], [place] [address] Hematology/Oncology 07/08/23 Camp Housekeeper Relationship Specialty Start Date End Date Ivonne Avila [address] [place] [address] PCP - General Family Medicine 07/13/17 Marifer Foy MD [address] [place] [address] General Surgery 08/25/19 Zaheer Bianchi MD [address] [place] [address] General Surgery 08/25/19 Isacc Davis MD [address] [place] [address] Hematology/Oncology 07/08/23 Camp Housekeeper Relationship Specialty Start Date End Date Ivonne Avila [address] [place] [address] PCP - General Family Medicine 07/13/17 Marifer Foy MD [address] [place] [address] General Surgery 08/25/19 Zaheer Bianchi MD [address] [place] [address] General Surgery 08/25/19 Isacc Davis MD [address] [place] [address] Hematology/Oncology 07/08/23 Camp Housekeeper Relationship Specialty Start Date End Date Ivonne Avila [address] [place] [address] PCP - General Family Medicine 07/13/17 Marifer Foy MD [address] [place] [address] General Surgery 08/25/19 Zaheer Bianchi MD [address] [place] [address] General Surgery 08/25/19 Isacc Davis MD [address] [place] [address] Hematology/Oncology 07/08/23 Camp Housekeeper Relationship Specialty Start Date End Date Ivonne Avila [address] [place] [address] PCP - General Family Medicine 07/13/17 Marifer Foy MD [address] [place] [address] General Surgery 08/25/19 Zaheer Bianchi MD [address] [place] [address] General Surgery 08/25/19 Isacc Davis MD [address] [place] [address] Hematology/Oncology 07/08/23 Camp Housekeeper Relationship Specialty Start Date End Date Ivonne Avila [address] [place] [address] (Work) PCP - General Family Medicine 07/13/17 Marifer Foy MD [address] [place] [address] General Surgery 08/25/19 Zaheer Bianchi MD [address] [place], [place] [address] General Surgery 08/25/19 Isacc Davis MD [address] [place], [place] [address] Hematology/Oncology 07/08/23 Camp Housekeeper Relationship Specialty Start Date End Date Milaeleanor Ivonne Prado [address] [place] [address] PCP - General Family Medicine 07/13/17 Marifer Foy MD [address] [facility] [address] General Surgery 08/25/19 Zaheer Bianchi MD [address] [place], [place] [address] General Surgery 08/25/19 Isacc Davis MD [address] [facility] [place], [place] [address] Hematology/Oncology 07/08/23 Camp Housekeeper Relationship Specialty Start Date End Date Terrie Goldstein CNP [facility] [place] [address] PCP - General Family Medicine 07/12/24 Marifer Foy MD [address] [place] [address] General Surgery 08/25/19 Zaheer Bianchi MD [address] [place] [address] General Surgery 08/25/19 Isacc Davis MD [address] [place] [address] Hematology/Oncology 07/08/23 Camp Housekeeper Relationship Specialty Start Date End Date Terrie Goldstein CNP 0 [facility] [place] [address] PCP - General Family Medicine 07/12/24 Marifer Foy MD [address] [facility] [address] General Surgery 08/25/19 Zaheer Bianchi MD [address] [place] [address] General Surgery 08/25/19 Isacc Davis MD [address] [place] [address] Hematology/Oncology 07/08/23 Camp Housekeeper Relationship Specialty Start Date End Date Terrie Goldstein CNP [address] [place] [address] PCP - General Family Medicine 07/12/24 Marifer Foy MD [address] [place] [address] General Surgery 08/25/19 Zaheer Bianchi MD [address] [place] [address] General Surgery 08/25/19 Isacc Davis MD [address] [place] [address] Hematology/Oncology 07/08/23 Camp Housekeeper Relationship Specialty Start Date End Date Terrie Goldstein CNP 0 [facility] [place] [address] PCP - General Family Medicine 07/12/24 Marifer Foy MD [address] [facility] [place] [address] General Surgery 08/25/19 Zaheer Bianchi MD [address] [place] [address] General Surgery 08/25/19 Isacc Davis MD [address] [place] [address] Hematology/Oncology 07/08/23 Camp Housekeeper Relationship Specialty Start Date End Date Terrie Goldstein CNP [address] [place] [address] PCP - General Family Medicine 07/12/24 Marifer Foy MD [address] [place] [address] General Surgery 08/25/19 Zaheer Bianchi MD [address] [place] [address] General Surgery 08/25/19 Isacc Davis MD [address] [place] [address] Hematology/Oncology 07/08/23 Camp Housekeeper Relationship Specialty Start Date End Date Terrie Goldstein CNP 0 [facility] [place] [address] PCP - General Family Medicine 07/12/24 Marifer Foy MD [address] [facility] [address] General Surgery 08/25/19 Zaheer Bianchi MD [address] [place] [address] General Surgery 08/25/19 Isacc Davis MD [address] [place] [address] Hematology/Oncology 07/08/23 Camp Housekeeper Relationship Specialty Start Date End Date Terrie Goldstein CNP [address] [place] [address] PCP - General Family Medicine 07/12/24 Marifer Foy MD [address] [place] [address] General Surgery 08/25/19 Zaheer Bianchi MD [address] [place] [address] General Surgery 08/25/19 Isacc Davis MD [address] [place] [address] Hematology/Oncology 07/08/23 Camp Housekeeper Relationship Specialty Start Date End Date Terrie Goldstein CNP 0 [facility] [place] [address] PCP - General Family Medicine 07/12/24 Marifer Foy MD [address] [facility] [place] [address] General Surgery 08/25/19 Zaheer Bianchi MD [address] [place] [address] General Surgery 08/25/19 Isacc Davis MD [address] [place] [address] Hematology/Oncology 07/08/23 Camp Housekeeper Relationship Specialty Start Date End Date Terrie Goldstein CNP [address] [place] [address] PCP - General Family Medicine 07/12/24 Marifer Foy MD [address] [place] [address] General Surgery 08/25/19 Zaheer Bianchi MD [address] [place], [place] [address] General Surgery 08/25/19 Isacc Davis MD [address] [place], [place] [address] Hematology/Oncology 07/08/23 Team Status: Active Member Role Status Dates Terrie RYDER NP-C Primary Care Provider Acti ve Team Status: Active Member Role Status Dates Dr. Bruce Mcclain DO Referring Provider Active S tart: October 30, 2024 Dr. Bruce Mcclain , DO Emergency Provider Active S tart: October 30, 2024 Terrie RYDER NP-C Primary Care Provider Acti ve Start: October 30, 2024 Dr. Joe Chance MD Admit Provider Active Star t: October 30, 2024 Dr. Joe Chance MD Attending Provider Active Start: October 30, 2024 Dr. Joe Chance MD Other Provider Active Star t: October 30, 2024 Team Status: Active Member Role Status Dates Dr. Bruce Mcclain DO Referring Provider Active S tart: October 30, 2024 Dr. Bruce Mcclain , DO Emergency Provider Active S tart: October 30, 2024 Terrie RYDER NP-C Primary Care Provider Acti ve Start: October 30, 2024 Dr. Joe Chance MD Admit Provider Active Star t: October 30, 2024 Dr. Joe Chance MD Attending Provider Active Start: October 30, 2024 Team Status: Inactive Member Role Status Dates Dr. Bruce Mcclain DO Referring Provider Active S tart: October 30, 2024 End: November 02, 2024 Dr. Bruce Mcclain , DO Emergency Provider Active S tart: October 30, 2024 End: November 02, 2024 Terrie RYDER NP-C Primary Care Provider Acti ve Start: October 30, 2024 End: November 02, 2024 Dr. Joe Chance MD Admit Provider Active Star t: October 30, 2024 End: November 02, 2024 Dr. Joe Chance MD Other Provider Active Star t: October 30, 2024 End: November 02, 2024 Dr. Sushant Olmedo MD Attending Provider Active Start: October 30, 2024 End: November 02, 2024 Team Status: Active Member Role Status Dates Terrie RYDER RN PROGRESSIVE CARE-C Primary Care Provider Acti ve Start: October 31, 2024 End: October 31, 2024 Dr. Kevin Kerr MD Attending Provider Active S tart: October 31, 2024 End: October 31, 2024 Dr. Joe Chance MD Referring Provider Active Start: October 31, 2024 End: October 31, 2024 Team Status: Active Member Role Status Dates Dr. Bruce Mcclain DO Referring Provider Active S tart: October 31, 2024 Dr. Bruce Mcclain DO Emergency Provider Active S tart: October 31, 2024 Terrie RYDER RN PROGRESSIVE CARE-C Primary Care Provider Acti ve Start: October 31, 2024 Dr. Joe Chance MD Admit Provider Active Star t: October 31, 2024 Dr. Joe Chance MD Other Provider Active Star t: October 31, 2024 Dr. Sushant Olmedo MD Attending Provider Active Start: October 31, 2024 Dr. Sushant Olmedo MD Other Provider Active Star t: October 31, 2024 Team Status: Active Member Role Status Dates Dr. Bruce Mcclain DO Referring Provider Active S tart: November 01, 2024 Dr. Bruce Mcclain DO Emergency Provider Active S tart: November 01, 2024 Terrie RYDER RN PROGRESSIVE CARE-C Primary Care Provider Acti ve Start: November 01, 2024 Dr. Joe Chance MD Admit Provider Active Star t: November 01, 2024 Dr. Joe Chance MD Other Provider Active Star t: November 01, 2024 Dr. Sushant Olmedo MD Attending Provider Active Start: November 01, 2024 Dr. Sushant Olmedo MD Other Provider Active Star t: November 01, 2024 Team Status: Active Member Role Status Dates Dr. Bruce Mcclain DO Referring Provider Active S tart: November 01, 2024 Dr. Bruce Mcclain DO Emergency Provider Active S tart: November 01, 2024 Terrie RYDER NP-C Primary Care Provider Acti ve Start: November 01, 2024 Dr. Joe Chance MD Admit Provider Active Star t: November 01, 2024 Dr. Joe Chance MD Other Provider Active Star t: November 01, 2024 Dr. Sushant Olmedo MD Other Provider Active Star t: November 01, 2024 Dr. Charles Glez DO Attending Provider Active Start: November 01, 2024 Team Status: Active Member Role Status Dates Dr. Bruce Mcclain DO Referring Provider Active S tart: November 02, 2024 Dr. Bruce Mcclain DO Emergency Provider Active S tart: November 02, 2024 Terrie RYDER RN PROGRESSIVE CARE-C Primary Care Provider Acti ve Start: November 02, 2024 Dr. Joe Chance MD Admit Provider Active Star t: November 02, 2024 Dr. Joe Chance MD Other Provider Active Star t: November 02, 2024 Dr. Sushant Olmedo MD Attending Provider Active Start: November 02, 2024 Dr. Sushant Olmedo MD Other Provider Active Star t: November 02, 2024 Team Status: Active Member Role Status Dates Terrie Goldstein NP RN PROGRESSIVE CARE-C Primary Care Provider Activ e Team Status: Active Member Role Status Dates Dr. Bruce Mcclain DO Emergency Provider Active S tart: October 30, 2024 Terrie RYDER NP-C Primary Care Provider Acti ve Start: October 30, 2024 Dr. Joe Chance MD Admit Provider Active Star t: October 30, 2024 Dr. Joe Chance MD Attending Provider Active Start: October 30, 2024 Dr. Joe Chance MD Other Provider Active Star t: October 30, 2024 Team Status: Active Member Role Status Dates Dr. Bruce Mcclain DO Emergency Provider Active S tart: October 31, 2024 Terrie RYDER NP-C Primary Care Provider Acti ve Start: October 31, 2024 Dr. Joe Chance MD Admit Provider Active Star t: October 31, 2024 Dr. Joe Chance MD Other Provider Active Star t: October 31, 2024 Dr. Sushant Olmedo MD Attending Provider Active Start: October 31, 2024 Dr. Sushant Olmedo MD Other Provider Active Star t: October 31, 2024 Team Status: Active Member Role Status Dates Dr. Bruce Mcclain DO Emergency Provider Active S tart: November 01, 2024 Terrie RYDER NP-C Primary Care Provider Acti ve Start: November 01, 2024 Dr. Joe Chance MD Admit Provider Active Star t: November 01, 2024 Dr. Joe Chance MD Other Provider Active Star t: November 01, 2024 Dr. Sushant Olmedo MD Attending Provider Active Start: November 01, 2024 Dr. Sushant Olmedo MD Other Provider Active Star t: November 01, 2024 Team Status: Active Member Role Status Dates Dr. Bruce Mcclain DO Emergency Provider Active S tart: November 02, 2024 Terrie RYDER NP-C Primary Care Provider Acti ve Start: November 02, 2024 Dr. Joe Chance MD Admit Provider Active Star t: November 02, 2024 Dr. Joe Chance MD Other Provider Active Star t: November 02, 2024 Dr. Sushant Olmedo MD Attending Provider Active Start: November 02, 2024 Dr. Sushant Olmedo MD Other Provider Active Star t: November 02, 2024 Team Status: Inactive Member Role Status Dates Terrie RYDER NP-C Primary Care Provider Acti ve Start: November 16, 2024 End: November 16, 2024 Terrie RYDER NP-C Referring Provider Active Start: November 16, 2024 End: November 16, 2024 EDITH CampoverdeC Attending Provider Active Start: November 16, 2024 End: November 16, 2024 Team Status: Inactive Member Role Status Dates Terrie RYDER NP-C Primary Care Provider Acti ve Start: November 16, 2024 End: November 16, 2024 Imani Bermudez NP-C Attending Provider Active Start: November 16, 2024 End: November 16, 2024 Imani Bermudez NP-Osiris Referring Provider Active Start: November 16, 2024 End: November 16, 2024 Team Status: Inactive Member Role Status Dates Dr. Bartolome Castillo DO Referring Provider Active Start: November 20, 2024 End: November 22, 2024 Dr. Bartolome Castillo DO Emergency Provider Active Start: November 20, 2024 End: November 22, 2024 Dr. Sushant Peralta , DO Admit Provider Active Start: November 20, 2024 End: November 22, 2024 Dr. Sushant Peralta , Other Provider Active Start: November 20, 2024 End: November 22, 2024 Dr. Ac Simms MD Attending Provider Active Start: November 20, 2024 End: November 22, 2024 Terrie Goldstein NP, RN PROGRESSIVE CARE-C Primary Care Provider Activ e Start: November 20, 2024 End: November 22, 2024 Team Status: Active Member Role Status Dates Terrie RYDER RN PROGRESSIVE CARE-C Primary Care Provider Acti ve Start: November 21, 2024 Dr. Bartolome Castillo , Emergency Provider Active Start: November 21, 2024 Dr. Sushant Peralta DO Admit Provider Active Start: November 21, 2024 Dr. Sushant Peralta DO Other Provider Active Start: November 21, 2024 Dr. Ac Simms MD Attending Provider Active Start: November 21, 2024 Dr. Ac Simms MD Other Provider Active Sta rt: November 21, 2024 Team Status: Active Member Role Status Dates Dr. Bartolome Castillo DO Emergency Provider Active Start: November 22, 2024 Dr. Sushant Peralta , Admit Provider Active Start: November 22, 2024 Dr. Sushant Peralta DO Other Provider Active Start: November 22, 2024 Dr. Ac Simms MD Attending Provider Active Start: November 22, 2024 Dr. Ac Simms MD Other Provider Active Sta rt: November 22, 2024 Terrie Goldstein NP RN PROGRESSIVE CARE-C Primary Care Provider Activ e Start: November 22, 2024 Team Status: Inactive Member Role Status Dates Terrie RYDER NP-C Referring Provider Active Start: December 28, 2024 End: December 28, 2024 Imani Bermudez NP-C Attending Provider Active Start: December 28, 2024 End: December 28, 2024 Terrie Goldstein NP, RN PROGRESSIVE CARE-C Primary Care Provider Activ e Start: December 28, 2024 End: December 28, 2024 Team Status: Inactive Member Role Status Dates Terrie Goldstein NP, RN PROGRESSIVE CARE-C Primary Care Provider Activ e Start: December 28, 2024 End: December 28, 2024 ROSENDO Capmoverde Attending Provider Active Start: December 28, 2024 End: December 28, 2024 ROSENDO Campoverde Referring Provider Active Start: December 28, 2024 End: December 28, 2024 Camp Housekeeper Relationship Specialty Start Date End Date Terrie Goldstein CNP [address] [place] [address] PCP - General Family Medicine 07/12/24 Marifer Foy MD [address] [place] [phone] General Surgery 08/25/19 Zaheer Bianchi MD [address] [place], [place] [id number] General Surgery 08/25/19 Isacc Davis MD [address] [place], [place] [address] Hematology/Oncology 07/08/23 Camp Housekeeper Relationship Specialty Start Date End Date Terrie Goldstein CNP [address] [place] [address] PCP - General Family Medicine 07/12/24 Marifer Foy MD [address] [place] [phone] General Surgery 08/25/19 Zaheer Bianchi MD [address] [place] [address] General Surgery 08/25/19 Isacc Davis MD [address] [place] [address] Hematology/Oncology 07/08/23 Camp Housekeeper Relationship Specialty Start Date End Date Terrie Goldstein CNP [address] [facility] [place] [address] PCP - General Family Medicine 07/12/24 Marifer Foy MD [address] [place] [phone] General Surgery 08/25/19 Zaheer Bianchi MD [address] [place] [address] General Surgery 08/25/19 Isacc Davis MD [address] [place] [address] Hematology/Oncology 07/08/23 Camp Housekeeper Relationship Specialty Start Date End Date Terrie Goldstein CNP [address] [facility] [place] [address] PCP - General Family Medicine 07/12/24 Marifer Foy MD [address] [place] [address] General Surgery 08/25/19 Zaheer Bianchi MD [address] [place] [address] General Surgery 08/25/19 Isacc Davis MD [address] [place] [address] Hematology/Oncology 07/08/23 Camp Housekeeper Relationship Specialty Start Date End Date Terrie Goldstein CNP [address] [place] [address] PCP - General Family Medicine 07/12/24 Marifer Foy MD [address] [place] [address] General Surgery 08/25/19 Zaheer Bianchi MD [address] [place] [address] General Surgery 08/25/19 Isacc Davis MD [address] [place] [address] Hematology/Oncology 07/08/23 Camp Housekeeper Relationship Specialty Start Date End Date Terrie Goldstein CNP [address] [place] [address] PCP - General Family Medicine 07/12/24 Marifer Foy MD [address] [place] [address] General Surgery 08/25/19 Zaheer Bianchi MD [address] [place] [address] General Surgery 08/25/19 Isacc Davis MD [address] [place] [address] Hematology/Oncology 07/08/23 Camp Housekeeper Relationship Specialty Start Date End Date Terrie Goldstein CNP [address] [place] [address] PCP - General Family Medicine 07/12/24 Marifer Foy MD [address] [place] [address] General Surgery 08/25/19 Zaheer Bianchi MD [address] [place] [address] General Surgery 08/25/19 Isacc Davis MD [address] [place] [address] Hematology/Oncology 07/08/23 Camp Housekeeper Relationship Specialty Start Date End Date Terrie Goldstein CNP [address] [place] [address] PCP - General Family Medicine 07/12/24 Marifer Foy MD [address] [place] [address] General Surgery 08/25/19 Zaheer Bianchi MD [address] [place] [address] General Surgery 08/25/19 Isacc Davis MD [address] [place], [place] [address] Hematology/Oncology 07/08/23 Camp Housekeeper Relationship Specialty Start Date End Date Terrie Goldstein CNP [address] [place] [address] PCP - General Family Medicine 07/12/24 Marifer Foy MD [address] [place] [phone] General Surgery 08/25/19 Zaheer Bianchi MD [address] [place] [address] [address] [place] [address] General Surgery 08/25/19 Isacc Davis MD [address] [place], [place] [address] Hematology/Oncology 07/08/23 Team Status: Active Member Role/Relationship Status Dates Terrie Goldstein NP, NP-C Primary Care Provider Activ e Team Status: Inactive Member Role/Relationship Status Dates Terrie RYDER RN PROGRESSIVE CARE-C Referring Provider Active Start: December 28, 2024 End: December 28, 2024 ROSENDO Campoverde Attending Provider Active Start: December 28, 2024 End: December 28, 2024 Terrie Goldstein NP RN PROGRESSIVE CARE-C Primary Care Provider Activ e Start: December 28, 2024 End: December 28, 2024 Team Status: Inactive Member Role/Relationship Status Dates Terrie Goldstein NP, NP-C Primary Care Provider Activ e Start: December 28, 2024 End: December 28, 2024 ROSENDO Campoverde Attending Provider Active Start: December 28, 2024 End: December 28, 2024 ROSENDO Campoverde Referring Provider Active Start: December 28, 2024 End: December 28, 2024 Team Status: Inactive Member Role/Relationship Status Dates Terrie Goldstein NP RN PROGRESSIVE CARE-C Primary Care Provider Activ e Start: March 29, 2025 End: March 29, 2025 ROSENDO Perea NP Referring Provider Active Start: March 29, 2025 End: March 29, 2025 ROSENDO Campoverde Attending Provider Active Start: March 29, 2025 End: March 29, 2025 Camp Housekeeper Relationship Specialty Start Date End Date Terrie Goldstein CNP [address] [place] [address] PCP - General Family Medicine 07/12/24 Marifer Foy MD [address] [place] [phone] General Surgery 08/25/19 Zaheer Bianchi MD [address] [facility] [address] [place], [place] [address] General Surgery 08/25/19 Isacc Davis MD [address] [place], [place] [address] Hematology/Oncology 07/08/23 Goals (unrecognized section and content) Goals may be documented in a n alternate section FOR RECORDS PERTAINING TO PATIENTS WHO ARE OR HAVE BEEN ENROLLED IN A CHEMICAL DEPENDENCY/SUBSTANCEABUSE PROGRAM, SOME INFORMATION MAY BE OMITTED. This clinical summary was aggregated from multiple sources. Caution should be exercised in using it in the provision of clinical care. This summary normalizes information from multiple sources, and as a consequence, information in this document may materially change the coding, format and clinical context of patient data. In addition, data may be omitted in some cases. CLINICAL DECISIONS SHOULD BE BASED ON THE PRIMARY CLINICAL RECORDS. [email or web address] [email or web address] [facility]. provides no warranty or guarantee of the accuracy or completeness of information in this document.
== END | disposition home or self-care (01) ==
PROVIDERS: PCP Registered Nurse; Referring Provider Registered Nurse; Visit Provider Registered Nurse
DX: D64.9 Anemia, unspecified (principal)
CPT/HCPCS: 86850; 86900; 86901; 86920

== ENCOUNTER 2025-07-09 10:14 | Outpatient (CLI) | payer MEDICARE, OTHER, SELFPAY ==
[2025-07-09 10:29] VITALS: BP 130/76; PULSE 83; RESP 16; TEMP 35.6; O2SAT 98
[2025-07-09 11:12] VITALS: BP 126/63; PULSE 76; RESP 16; TEMP 36.7
[2025-07-09 12:40] VITALS: BP 139/70; PULSE 85; RESP 16; TEMP 35.8; O2SAT 99
== END 2025-07-09 23:59 | disposition home or self-care (01) ==
LOC: MEDOUTP 10:15
PROVIDERS: PCP Registered Nurse; Referring Provider Specialist; Visit Provider Specialist
DX: D64.9 Anemia, unspecified (principal)
CPT/HCPCS: 36430; 86850; 86900; 86901; 86920; P9016; A4216